=== PATIENT | female | born 1955 | race Caucasian/White ===

== ENCOUNTER 2020-05-04 09:39 | Outpatient (REF) | payer OTHER, SELFPAY ==
[2020-05-04 11:10] LABS: Cholesterol 153 mg/dL; HDL Cholesterol 31 mg/dL; LDL Cholesterol Calculated 92 mg/dl; Triglycerides 154 mg/dL
[2020-05-05 22:21] LABS: LDL Cholesterol Direct 95 mg/dL (<100)
== END 2020-05-04 09:40 | disposition home or self-care (01) ==
LOC: HO.LAB 09:39
PROVIDERS: Visit Provider Internal Medicine Endocrinology, Diabetes & Metabolism
DX: E78.5 Hyperlipidemia, unspecified (principal)
CPT/HCPCS: 36415; 80061; 83721

== ENCOUNTER 2020-05-24 08:11 | Outpatient (REF) | payer OTHER, SELFPAY ==
--- NOTE | 2020-05-24 09:39 | P.BOP_ITS ---
Brief Operative Note Date of procedure: 05/24/20 Pre-op diagnosis: Nontoxic multinodular goiter Post-op diagnosis: same Procedure: This procedure was explained to the patient. Alternatives, risks and benefits were discussed. Written consent was obtained. After sterile preparation of the skin, fine-needle aspiration biopsy of right mid pole thyroid nodule size 2.4 x 1.2 x 2.4 cm was performed under direct ultrasound guidance to confirm accurate needle placement. First pass was performed with a 25 gauge needle , was an aspiration of the cystic part of the nodule 0.5 ml was aspirated of a dark red fluid. Three passes were performed with 25 gauge needles. Samples were submitted to cytology, initial cytology reading was adequate. No passes were dedicated for Afirma genomic sequencing society reporter test. PAtient had a prior FNA of this nodule that was AUS on 2019. Afirma was negative. Patient tolerated procedure well. Aftercare instructions were provided. Impression: uncomplicated fine-needle aspiration biopsy of right mid pole thyroid nodule thyroid nodule under direct ultrasound guidance. Surgeon: Tank Koch MD Anesthesia: local ( lidocaine 1% 2 mL) Estimated blood loss (mL): 0 Condition: stable Disposition: same day
[2020-05-24] MEDS: Lidocaine HCl 1 % 20 ML VIAL 5 ML SUBCUT (12:05)
== END 2020-05-24 08:12 | disposition home or self-care (01) ==
LOC: HO.US 08:11
PROVIDERS: PCP Internal Medicine; Visit Provider Internal Medicine Endocrinology, Diabetes & Metabolism
DX: E04.2 Nontoxic multinodular goiter (principal)
CPT/HCPCS: 10005; 88172; 88173; 88177; 88305

== ENCOUNTER → 2020-06-04 11:59 | Outpatient (BNVA) | payer OTHER, SELFPAY | PROVIDERS: PCP Internal Medicine; Referring Provider Internal Medicine; Visit Provider Internal Medicine Endocrinology, Diabetes & Metabolism | DX: E11.649 Type 2 diabetes mellitus with hypoglycemia without coma (principal); E11.40 Type 2 diabetes mellitus with diabetic neuropathy, unspecified; E11.22 Type 2 diabetes mellitus with diabetic chronic kidney disease; I12.9 Hypertensive chronic kidney disease with stage 1 through stage 4 chronic kidney disease, or unspecified chronic kidney disease; N18.30 Chronic kidney disease, stage 3 unspecified; Z79.4 Long term (current) use of insulin; E04.2 Nontoxic multinodular goiter; E78.5 Hyperlipidemia, unspecified; E55.9 Vitamin D deficiency, unspecified | CPT/HCPCS: 99212 ==

== ENCOUNTER 2020-06-05 08:26 | Outpatient (REF) | payer OTHER, SELFPAY ==
[2020-06-05 09:35] LABS: Basophils Absolute Auto 0.1 X10*3/uL (0.0-0.2); Basophils Percent Auto 0.7 % (0-2); Eosinophils Absolute Auto 0.1 X10*3/uL (0.0-0.4); Eosinophils Percent Auto 0.9 % (0-4); Hematocrit 33.8 % (37-47); Hemoglobin 10.2 g/dl (12.0-16.0); Imm Gran Pct Auto 0.8 % (0.0-0.4); Lymphocytes Absolute Auto 2.5 X10*3/uL (1.2-4.9); Lymphocytes Percent Auto 19.9 % (20-40); MANUAL DIFF FLAG NO; Mean Corpuscular HGB Conc 30.2 g/dl (31.0-35.0); Mean Corpuscular Hemoglobin 25.6 pg (27.0-33.0); Mean Corpuscular Volume 84.9 fL (80-98); Mean Platelet Volume 10.1 fL (9.4-12.3); Monocytes Absolute Auto 1.1 X10*3/uL (0.1-1.2); Monocytes Percent Auto 8.8 % (2-11); Neutrophils Absolute Auto 8.7 X10*3/uL (2.0-8.3); Neutrophils Percent Auto 68.9 % (45-73); Platelet Count 319 X10*3/uL (160-400); Red Blood Count 3.98 X10*6/uL (4.20-5.50); Red Cell Distribution Width 14.5 % (11.0-16.0); White Blood Count 12.7 X10*3/uL (4.8-10.8)
[2020-06-05 10:00] LABS: Anion Gap 10 (12-20); Blood Urea Nitrogen 18 mg/dL (9-16); Carbon Dioxide 30 mmol/L (22-29); Chloride 105 mmol/L (96-108); Estimated Glomerular Filt Rate 59; Potassium 3.9 mmol/l (3.3-5.1); Sodium 141 mmol/L (135-145)
== END 2020-06-05 08:27 | disposition home or self-care (01) ==
LOC: HO.LAB 08:26
PROVIDERS: PCP Internal Medicine; Visit Provider Internal Medicine Hypertension Specialist
DX: E11.22 Type 2 diabetes mellitus with diabetic chronic kidney disease (principal); N18.30 Chronic kidney disease, stage 3 unspecified; D63.1 Anemia in chronic kidney disease; R80.9 Proteinuria, unspecified; E11.21 Type 2 diabetes mellitus with diabetic nephropathy; Q63.2 Ectopic kidney
CPT/HCPCS: 36415; 80051; 82565; 84520; 85025

== ENCOUNTER 2020-06-06 12:58 | Outpatient (REF) | payer OTHER, SELFPAY | END 2020-06-06 12:59 | disposition home or self-care (01) | LOC: HO.HMGCLDS 12:58 | PROVIDERS: PCP Internal Medicine; Visit Provider Internal Medicine | DX: Z20.828 Contact with and (suspected) exposure to other viral communicable diseases (principal) | CPT/HCPCS: C9803; U0003 ==

== ENCOUNTER 2020-09-24 09:54 | Outpatient (REF) | payer OTHER, SELFPAY ==
[2020-09-24 11:33] LABS: Hematocrit 33.9 % (37-47); Hemoglobin 10.3 g/dl (12.0-16.0); Mean Corpuscular HGB Conc 30.4 g/dl (31.0-35.0); Mean Corpuscular Hemoglobin 25.2 pg (27.0-33.0); Mean Corpuscular Volume 82.9 fL (80-98); Mean Platelet Volume 9.6 fL (9.4-12.3); Platelet Count 334 X10*3/uL (160-400); Red Blood Count 4.09 X10*6/uL (4.20-5.50); Red Cell Distribution Width 13.2 % (11.0-16.0); White Blood Count 12.5 X10*3/uL (4.8-10.8)
[2020-09-24 12:25] LABS: Microalbum/Creatinine Ratio Ur 7.6 ug/mg cr
[2020-09-24 12:34] LABS: Alanine Aminotransferase 18 U/L (0-31); Albumin Level 3.8 g/dL (3.5-5.0); Alkaline Phosphatase 89 U/L (39-117); Anion Gap 13 (12-20); Aspartate Amino Transferase 17 U/L (5-31); Bilirubin Total 0.4 mg/dL (0.0-1.0); Blood Urea Nitrogen 13 mg/dL (9-16); Calcium 8.9 mg/dL (8.4-10.2); Carbon Dioxide 34 mmol/L (22-29); Chloride 102 mmol/L (96-108); Cholesterol 177 mg/dL; Estimated Glomerular Filt Rate > 60; Glucose Fasting 78 mg/dL (60-99); HDL Cholesterol 40 mg/dL; LDL Cholesterol Calculated 118 mg/dl; Potassium 3.5 mmol/L (3.3-5.1); Sodium 145 mmol/L (135-145); Total Protein 6.5 g/dL (6.5-8.0); Triglycerides 96 mg/dL
[2020-09-24 12:55] LABS: Thyroid Stimulating Hormone 0.37 uIU/mL (0.32-4.0)
[2020-09-25 08:21] LABS: LDL Cholesterol Direct 112 mg/dL (<100)
[2020-09-27 16:00] LABS: Vitamin B12 272 pg/mL (200-900)
[2020-09-28 05:17] LABS: Fructosamine 228 umol/L (205-285)
== END 2020-09-24 09:55 | disposition home or self-care (01) ==
LOC: HO.LAB 09:54
PROVIDERS: PCP Internal Medicine; Visit Provider Internal Medicine Endocrinology, Diabetes & Metabolism
DX: E11.649 Type 2 diabetes mellitus with hypoglycemia without coma (principal); E11.22 Type 2 diabetes mellitus with diabetic chronic kidney disease; I12.9 Hypertensive chronic kidney disease with stage 1 through stage 4 chronic kidney disease, or unspecified chronic kidney disease; N18.30 Chronic kidney disease, stage 3 unspecified; E11.42 Type 2 diabetes mellitus with diabetic polyneuropathy; Z79.4 Long term (current) use of insulin; E78.5 Hyperlipidemia, unspecified; I10 Essential (primary) hypertension; E55.9 Vitamin D deficiency, unspecified; E04.2 Nontoxic multinodular goiter
CPT/HCPCS: 36415; 80053; 80061; 82043; 82607; 82947; 82985; 83721; 84439; 84443; 85027; 99212

== ENCOUNTER 2021-02-07 14:06 | Outpatient (REF) | payer OTHER, SELFPAY ==
[2021-02-07 15:46] LABS: Alanine Aminotransferase 15 U/L (0-31); Albumin Level 3.7 g/dL (3.5-5.0); Alkaline Phosphatase 101 U/L (39-117); Anion Gap 11 (12-20); Aspartate Amino Transferase 16 U/L (5-31); Bilirubin Total 0.3 mg/dL (0.0-1.0); Blood Urea Nitrogen 15 mg/dL (9-16); Calcium 8.9 mg/dL (8.4-10.2); Carbon Dioxide 31 mmol/L (22-29); Chloride 101 mmol/L (96-108); Cholesterol 140 mg/dL; Estimated Glomerular Filt Rate 49; Glucose Random 113 mg/dL (60-115); HDL Cholesterol 34 mg/dL; LDL Cholesterol Calculated 83 mg/dl; Potassium 3.4 mmol/L (3.3-5.1); Sodium 140 mmol/L (135-145); Total Protein 6.9 g/dL (6.5-8.0); Triglycerides 117 mg/dL
[2021-02-08 07:56] LABS: LDL Cholesterol Direct 83 mg/dL (<100)
== END 2021-02-07 14:07 | disposition home or self-care (01) ==
LOC: HO.LAB 14:06
PROVIDERS: PCP Internal Medicine; Visit Provider Internal Medicine Endocrinology, Diabetes & Metabolism
DX: E11.649 Type 2 diabetes mellitus with hypoglycemia without coma (principal); E11.22 Type 2 diabetes mellitus with diabetic chronic kidney disease; E11.42 Type 2 diabetes mellitus with diabetic polyneuropathy; E04.2 Nontoxic multinodular goiter; I12.9 Hypertensive chronic kidney disease with stage 1 through stage 4 chronic kidney disease, or unspecified chronic kidney disease; N18.30 Chronic kidney disease, stage 3 unspecified; E78.5 Hyperlipidemia, unspecified; E55.9 Vitamin D deficiency, unspecified; Z79.4 Long term (current) use of insulin
CPT/HCPCS: 36415; 80053; 80061; 82947; 83721; 99212

== ENCOUNTER 2021-05-20 09:23 | Outpatient (REF) | payer MEDICARE, SELFPAY ==
--- NOTE | ~2021-05-20 | MM_ITS ---
EXAMINATION: MM SCREENING DIGITAL BREAST TOMOSYNTHESIS, BILATERAL CLINICAL INFORMATION: Screening. Asymptomatic. The lifetime risk of breast cancer based on the Tyrer-Cuzick Model is 3%. COMPARISON: Mammography: 10/15/2018, 10/09/2017, 10/02/2017 TECHNIQUE: Digital breast tomosynthesis is performed in both the craniocaudal and mediolateral oblique views along with computer-aided detection (CAD). Synthesized 2D images are generated from the tomosynthesis. Additional left MLO view is provided. FINDINGS: There are scattered areas of fibroglandular density (ACR BI-RADS breast composition Category b). There are no significant masses, abnormal calcifications, or other abnormalities. Parenchymal pattern is similar to prior exams. No developing density. Pacemaker generator overlies and partly obscures left axilla. Skin contours are smooth. No significant changes. MM/MM tomosynthesis screening BI IMPRESSION: No mammographic evidence of malignancy. ASSESSMENT: BI-RADS 2: Benign RECOMMENDATION: Routine annual mammography screening. This patient's information was entered into a reminder system with a target due date for their next mammogram.
== END 2021-05-20 09:24 | disposition home or self-care (01) ==
LOC: HO.MAMMO 09:23
PROVIDERS: PCP Internal Medicine; Visit Provider Internal Medicine
DX: Z12.31 Encounter for screening mammogram for malignant neoplasm of breast (principal)
CPT/HCPCS: 77063; 77067

== ENCOUNTER 2021-06-20 14:12 | Outpatient (REF) | payer MEDICARE, SELFPAY ==
--- NOTE | ~2021-06-20 | US_ITS ---
EXAMINATION: US THYROID CLINICAL INFORMATION: Nontoxic multinodular goiter. COMPARISON: Ultrasound soft tissue head/neck thyroid most recent dated 01/02/2020 and 11/09/2018. TECHNIQUE: Linear transducer grayscale and color Doppler examination with attention to the region of the thyroid. FINDINGS: SIZE: Measurements of the thyroid lobes and nodules are given in sagittal, anteroposterior and transverse dimensions respectively. Right Thyroid Lobe: 5.5 x 1.8 x 1.9 cm, volume 9.8 mL. Previously 5.3 x 2.3 x 1.7 cm, volume 10.8 mL. Parenchyma: The gland echotexture is heterogeneous. Thyroid vascularity is normal. Left Thyroid Lobe: 4.9 x 1.1 x 1.8 cm, volume 5.1 mL. Previously 4.1 x 1.5 x 1.7 cm, volume 5.5 mL. Parenchyma: The gland echotexture is homogeneous. Thyroid vascularity is normal. Isthmus: 0.3 cm in maximum AP dimension. Previously 0.5 cm. There are multiple nodules. Largest nodules are measured. Estimated total number of nodules greater than or equal to 1 cm: 3. Chick Sexer nodules are described as follows: 1. Location: Right mid. Size: 1.9 x 0.96 x 1.6 cm, volume 1.6 mL. Previously: 1.4 x 0.9 x 1.3 cm, volume 1.2 mL. Nodule characteristics: Composition: Mixed cystic and solid (1). Echogenicity: Anechoic (0). Shape: Not taller than wide (0). Margins: Lobulated (2). Echogenic Foci: None (0). ACR TI-RADS total points: 3 ACR TI-RADS category: 3 Significant change in size (>/= 20% in 2 dimensions and minimal increase of 2 mm or 50% or greater increase in volume): Change in features: Change in ACR TI-RADS risk category: 2. Location: Right mid. Size: 1.1 x 0.8 x 1.3 cm, volume 0.6 mL. Previously: 2.4 x 1.2 x 2.4 cm, volume 3.61 mL. Nodule characteristics: Composition: Solid (2). Echogenicity: Hyperechoic (1). Shape: Not taller than wide (0). Margins: Smooth (0). Echogenic Foci: None (0). ACR TI-RADS total points: 3 ACR TI-RADS category: 3 Significant change in size (>/= 20% in 2 dimensions and minimal increase of 2 mm or 50% or greater increase in volume): Change in features: Change in ACR TI-RADS risk category: 3. Location: Right superior. Size: 1.3 x 1.3 x 1.2 cm, volume 1.06 mL. Previously: 1.7 x 1.4 x 1.4 cm, volume 1.7 mL. Nodule characteristics: Composition: Solid (2). Echogenicity: Isoechoic (1). Shape: Not taller than wide (0). Margins: Ill-defined (0). Echogenic Foci: None (0). ACR TI-RADS total points: 3 ACR TI-RADS category: 3 Significant change in size (>/= 20% in 2 dimensions and minimal increase of 2 mm or 50% or greater increase in volume): Change in features: Change in ACR TI-RADS risk category: 4. Location: Left mid. Size: 0.4 x 0.3 x 0.4 cm, volume 0.03 mL. Previously: 0.7 x 0.4 x 0.5 cm, volume 0.07 mL. Nodule characteristics: Composition: Cystic(0). ACR TI-RADS total points: 0 ACR TI-RADS category: 1 Significant change in size (>/= 20% in 2 dimensions and minimal increase of 2 mm or 50% or greater increase in volume): Change in features: Change in ACR TI-RADS risk category: 5. Location: Left inferior. Size: 0.4 x 0.3 x 0.4 cm, volume 0.04 mL. Previously: 0.4 x 0.2 x 0.4 cm, volume 0.01 mL. Nodule characteristics: Composition: Mixed cystic and solid (1). Echogenicity: Isoechoic (1). Shape: Not taller than wide (0). Margins: Ill-defined (0). Echogenic Foci: Punctate echogenic foci (3). ACR TI-RADS total points: 5 ACR TI-RADS category: 4 Significant change in size (>/= 20% in 2 dimensions and minimal increase of 2 mm or 50% or greater increase in volume): Change in features: Change in ACR TI-RADS risk category: NODES: No lymphadenopathy is seen in the tissue surrounding the thyroid gland. There are small left cervical lymph nodes. These are normal in size and demonstrate normal ultrasound morphology and flow. US/US thyroid IMPRESSION: Slightly enlarged heterogeneous-appearing right lobe. Multiple bilateral thyroid nodules, right greater than left. These appear similar to previous exam. ACR TI-RADS RECOMMENDATION REFERENCE: Ultrasound-guided fine-needle aspiration, followup ultrasound, no further follow up. * TR1 (0 point) and TR 2 (2 points): No FNA or follow up * TR3 (3 points): FNA if more than or equal to 2.5 cm in maximum dimension, followup ultrasound in 1, 3 and 5 years if 1.5 to 2.4 cm in maximum dimension. * TR4 (4-6 points): FNA if more than or equal to 1.5 cm in maximum dimension, followup ultrasound in 1, 2, 3 and 5 years if 1 to 1.4 cm in maximum dimension. * TR5 (more than or equal to 7 points): FNA if more than or equal to 1 cm in maximum dimension, followup ultrasound every year for 5 years if 0.5 to 0.9 cm in maximum dimension. * TR3, TR4 or TR5 nodules that are below the size threshold for follow up receive no follow up.
== END 2021-06-20 14:13 | disposition home or self-care (01) ==
LOC: HO.US 14:12
PROVIDERS: PCP Internal Medicine; Visit Provider Internal Medicine
DX: E04.2 Nontoxic multinodular goiter (principal)
CPT/HCPCS: 76536

== ENCOUNTER → 2021-07-10 08:03 | Outpatient (BNVA) | payer MEDICARE, SELFPAY | PROVIDERS: PCP Internal Medicine; Visit Provider Internal Medicine | DX: E04.2 Nontoxic multinodular goiter (principal) | CPT/HCPCS: Q3014 ==

== ENCOUNTER 2021-07-12 10:03 | Outpatient (REF) | payer MEDICARE, SELFPAY ==
[2021-07-12 12:14] LABS: Free T4 (Free Thyroxine) 0.99 ng/dL (0.71-1.85); Thyroid Stimulating Hormone 0.55 uIU/mL (0.32-4.0)
== END 2021-07-12 10:04 | disposition home or self-care (01) ==
LOC: HO.LAB 10:03
PROVIDERS: PCP Student in an Organized Health Care Education/Training Program; Visit Provider Internal Medicine
DX: E04.2 Nontoxic multinodular goiter (principal)
CPT/HCPCS: 36415; 84439; 84443

== ENCOUNTER 2021-07-30 14:29 | Emergency (ER) | payer MEDICARE, SELFPAY ==
--- NOTE | ~2021-07-30 | XR_ITS ---
EXAMINATION: XR CHEST CLINICAL INFORMATION: Cough COMPARISON: 09/05/2010 TECHNIQUE: Frontal view of the chest was obtained. FINDINGS: Since the prior study a left chest wall pacer/defibrillator has been placed exam is otherwise unchanged. No infiltrates, effusions or lung masses are seen.. XR/XR chest 1V IMPRESSION: No acute intrathoracic disease.
[2021-07-30 15:25] VITALS: BP 124/64; PULSE 87; RESP 16; TEMP 36.9; O2SAT 98; BMI 25.9
[2021-07-30 16:16] LABS: COVID-19 Test Negative (Negative)
--- NOTE | 2021-07-30 18:50 | ED.URI ---
HPI - URI/Sore Throat General Chief Complaint: Upper Respiratory Symptoms Stated Complaint: Diff Breathing Sore Throat Time Seen by Provider: 07/30/21 18:50 Source: patient Mode of arrival: ambulatory Limitations: language barrier (Macedonian speaking only, fine patcher used) History of Present Illness HPI Narrative: 66-year-old female who presents emergency department for evaluation of cough, shortness of breath, body aches, chest pain. Patient states she has been sick for approximately 6 days. She states she has a persistent nonproductive cough. She states that whenever she coughs she gets pain in her anterior chest which she describes as a sharp pain which is brief. She states she feels short of breath at rest and has some mild dyspnea on exertion. She states that her body aches. She denied fever or chills. The patient received the 2 shot COVID-19 Moderna vaccination. Patient does have a history of cardiomyopathy and does have an AICD. Related Data Home Medications Medication Instructions Recorded Confirmed alcohol swabs pad TOPICAL 06/04/20 07/10/21 allopurinol 100 mg tablet 400 mg PO DAILY 06/04/20 07/10/21 aspirin 81 mg tablet,delayed 81 mg PO DAILY 06/04/20 07/10/21 release carvedilol 25 mg tablet 25 mg PO BID 06/04/20 07/10/21 cholecalciferol (vitamin D3) 50 50 mcg PO DAILY 06/04/20 07/10/21 mcg (2,000 unit) capsule digoxin 125 mcg (0.125 mg) tablet 62.5 mcg PO 3XW 06/04/20 07/10/21 gabapentin 600 mg tablet 600 mg PO TID 06/04/20 07/10/21 loratadine 10 mg tablet 10 mg PO DAILY 06/04/20 07/10/21 methocarbamol 750 mg tablet 750 mg PO BID 06/04/20 07/10/21 omeprazole 10 mg capsule,delayed 10 mg PO DAILY 06/04/20 07/10/21 release sacubitril 49 mg-valsartan 51 mg 1 tab PO BID 06/04/20 07/10/21 tablet zolpidem 5 mg tablet 5 mg PO BEDTIME PRN 06/04/20 07/10/21 ferrous sulfate 325 mg (65 mg 325 mg PO BID 09/24/20 07/10/21 iron) tablet furosemide 40 mg tablet 40 mg PO DAILY tab 09/24/20 07/10/21 famotidine 40 mg tablet 40 mg PO DAILY 07/10/21 07/10/21 Previous Rx's Medication Instructions Recorded lancing device (Adjustable Lancing #1 ea 02/01/21 Device) blood sugar diagnostic (FreeStyle 1 strip MISCELLANEOUS BID 90 Days 02/07/21 Lite Strips) #200 strip empagliflozin 25 mg tablet 25 mg PO DAILY 30 Days #30 tab 02/07/21 (Jardiance) linagliptin 5 mg tablet (Tradjenta) 5 mg PO DAILY #30 tab 02/07/21 insulin glargine 100 unit/mL (3 10 unit (0.1 mL) SUBCUT DAILY 30 02/13/21 mL) subcutaneous pen ( #3 ml Solostar U-100 Insulin) pen needle, diabetic 32 gauge x #50 ea 02/13/21 (BD Radha 2nd Gen Pen Needle) atorvastatin 40 mg tablet 40 mg PO DAILY #90 tab 03/04/21 lancets 28 gauge #200 ea 05/02/21 albuterol sulfate 90 mcg/actuation 2 puff INHALATION Q4-6H PRN #8.5 g 07/30/21 aerosol inhaler (ProAir HFA) benzonatate 100 mg capsule 200 mg PO TID PRN #20 cap 07/30/21 doxycycline hyclate 100 mg tablet 100 mg PO Q12H 7 Days #14 tab 07/30/21 Allergies Allergy/AdvReac Type Severity Reaction Status Date / Time egg [EGG] Allergy Intermediate RASH Verified 07/10/21 09:04 Fish Containing Products Allergy Intermediate RASH Verified 07/10/21 09:04 oxycodone [OXYCODONE] Allergy Intermediate RASH Verified 07/10/21 09:04 acetaminophen [From PERCOCET] Allergy Unknown RASH/ITCHIN Verified 07/10/21 09:04 G codeine [CODEINE] Allergy Unknown ITCHING Verified 07/10/21 09:04 hydrocodone [From VICODIN] Allergy Unknown UNKNOWN Verified 07/10/21 09:04 lisinopril [LISINOPRIL] Allergy Unknown UNKNOWN Verified 07/10/21 09:04 metoclopramide [From REGLAN] Allergy Unknown UNKNOWN Verified 07/10/21 09:04 naproxen [Naprosyn] Allergy Unknown Unknown Verified 07/10/21 09:04 Codeine Sulfate Allergy Unknown Unknown Uncoded 07/10/21 09:04 Percocet Allergy Unknown Unknown Uncoded 07/10/21 09:04 Vicodin Allergy Unknown Unknown Uncoded 07/10/21 09:04 Review of Systems Review of Systems: Yes all other systems are reviewed and are negative [facility] Past Medical History Medical History CHF (congestive heart failure) CKD (chronic kidney disease) stage 3, GFR 30-59 ml/min Diabetes type 2, uncontrolled Diabetic neuropathy associated with type 2 diabetes mellitus Dyslipidemia Hypertension Hypoglycemia unawareness associated with type 2 diabetes mellitus 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 Non-toxic multinodular goiter Vitamin D deficiency Surgical History AICD (automatic cardioverter/defibrillator) present Hx of appendectomy Hx of hysterectomy Family History Family History Father Alcoholism Diabetes Mother Arthritis Hypertension Social History Social History Alcohol intake: current Alcohol intake frequency: does not drink Patient Tobacco Use Status: Never used Tobacco Advance Directives: No Advance Directives Information Provided: No Physical Exam Vital Signs: Vital Signs: Last Vital Signs Temp 98.4 F 07/30/21 15:25 Pulse 87 07/30/21 15:25 Resp 16 07/30/21 15:25 BP 124/64 07/30/21 15:25 Pulse Ox 98 07/30/21 15:25 BMI result Body Mass Index 25.9 Const: General: cooperative and healthy appearing Orientation/consciousness: oriented to person and oriented to place Limitations: no limitations HENMT: Head: Yes normal to inspection, Yes normocephalic and Yes atraumatic Ears: external ears normal General nose exam: Normal external nose present Face and sinus: Yes normal facial exam Mouth: Normal oral and palatal mucosa present Throat: Yes posterior oropharynx normal Eyes: Periorbital: periorbital findings normal Eyelids: Yes eyelids normal Conjunctivae: conjunctivae normal Sclerae: sclerae normal Corneas: corneas normal Pupils: Equal, round and reactive pupils present Direct Ophthalmoscopy: normal light reflex Neck: Neck: Yes full ROM, Yes no lymphadenopathy, Yes no meningeal signs, Yes trachea midline and Yes supple Chest: Chest palpation & inspection: normal inspection of the chest and normal palpation of entire chest wall Resp: Effort & Inspection: normal respiratory effort and able to speak in complete sentences Auscultation: no crackles, no rhonchi and wheezes (Diffuse) Cardio: Rate: regular rate Rhythm: regular rhythm Heart sounds: S1 normal heart sound present, S2 normal heart sound present and no murmurs GI: Inspection: Yes normal to inspection Palpation (GI): Soft to palpation, nontender, no guarding, not rigid and No hepatosplenomegaly present : General: Yes no CVA tenderness Back/Spine/Pelvis: Back: no CVA tenderness Cervical Spine: normal cervical lordosis Thoracic/Lumbar Spine: thoracic and lumbar spine normal to inspection Skin: Lesions: no lesions Rashes: no rashes Wounds: no wounds Neuro: General: oriented to person, oriented to place and no meningeal signs Cranial nerves: Yes Equal, round and reactive pupils present Cognition (Neuro): normal cognition Motor exam (neuro): 5/5 motor strength present throughout Extrem: General: Yes normal to inspection and Yes full ROM Psych: Appearance: well kempt Mental Status: mental status grossly normal Speech and movement: Normal speech and movement present Affect: normal affect Attitude: cooperative Thought process: Normal thought process present Thought content: Normal thought content present Course Course Course Narrative: 66-year-old female who presents emergency department for evaluation of cough, chest pain, shortness of breath x6 days. Patient is vaccinated for COVID-19. Vital signs were normal with respiratory of 16 and O2 saturation of 98% on room air. exam did reveal wheezing otherwise was unremarkable. Chest x-ray revealed no evidence of pneumonia. COVID-19 test was negative. Patient's presentation is consistent with acute bronchitis, given her concomitant medical conditions I will treat her for bacterial bronchitis. She was started on doxycycline 100 mg twice a day for 7 days, albuterol inhaler 2 puffs 4 times a day for 7 days and Tessalon Perles 200 mg, 1 pill 3 times a day as needed for cough. She was given printed and verbal instructions and discharged home. MDM - URI/Sore Throat Lab Data Labs: Lab Results 07/30/21 Range/Units 15:56 COVID-19 ([facility]) Negative (Negative) COVID-19 Clin Com See Note Discharge Plan Discharge Clinical Impression: Acute bronchospasm Acute bronchitis Qualifiers: Bronchitis organism: other organism Qualified Code(s): J20.8 - Acute bronchitis due to other specified organisms Patient Disposition: Home, Self-Care Instructions: How to Use a Metered-Dose Inhaler (ED), Acute Bronchitis (ED) Additional Instructions: Your chest x-ray was normal. Your COVID-19 test was negative. Your symptoms are consistent with bronchitis (infection of your breathing tubes) and wheezing. Take doxycycline 100 mg pills, 1 pill twice a day for 7 days. This will treat a bacterial infection. Use the albuterol inhaler 2 puffs 4 times a day for 1 week. This will help with your cough and with your wheezing. Take Tessalon Perles 200 mg pills, 1 pill 3 times a day as needed for cough. Follow-up with your doctor in 2 days. Please return to the emergency department if your symptoms get worse or if you develop any symptoms that are concerning to you. Prescriptions: New albuterol sulfate [ProAir HFA] 90 mcg/actuation HFA aerosol inhaler 2 puff inhalation Q4-6H PRN (Reason: shortness of breath or wheezing) Qty: 8.5 RF: 0 doxycycline hyclate 100 mg tablet 100 mg PO Q12H 7 Days Qty: 14 RF: 0 benzonatate 100 mg capsule 200 mg PO TID PRN (Reason: cough) Qty: 20 RF: 0 No Action (DME) lancing device [Adjustable Lancing Device] Misc See Rx Instructions .ROUTE .MEDSUPPLY Qty: 1 RF: 0 Lantus Solostar U-100 Insulin 100 unit/mL (3 mL) insulin pen 10 unit subcut DAILY 30 Days Qty: 3 RF: 3 (DME) pen needle, diabetic [BD Radha 2nd Gen Pen Needle] 32 gauge x 5/32 needle See Rx Instructions .ROUTE .MEDSUPPLY Qty: 50 RF: 4 atorvastatin 40 mg tablet 40 mg PO DAILY Qty: 90 RF: 1 (DME) lancets 28 gauge misc See Rx Instructions gauge topical .MEDSUPPLY Qty: 200 RF: 3 alcohol swabs Pads, Medicated topical RF: 0 methocarbamol 750 mg tablet 750 mg PO BID RF: 0 zolpidem 5 mg tablet 5 mg PO BEDTIME PRNRF: 0 cholecalciferol (vitamin D3) 50 mcg (2,000 unit) capsule 50 mcg PO DAILY RF: 0 omeprazole 10 mg capsule,delayed release(DR/EC) 10 mg PO DAILY RF: 0 digoxin 125 mcg (0.125 mg) tablet 62.5 mcg PO 3XW RF: 0 loratadine 10 mg tablet 10 mg PO DAILY RF: 0 carvedilol 25 mg tablet 25 mg PO BID RF: 0 aspirin 81 mg tablet,delayed release (DR/EC) 81 mg PO DAILY RF: 0 gabapentin 600 mg tablet 600 mg PO TID RF: 0 allopurinol 100 mg tablet 400 mg PO DAILY RF: 0 Entresto 49-51 mg tablet 1 tab PO BID RF: 0 furosemide 40 mg tablet 40 mg PO DAILY RF: 0 ferrous sulfate 325 mg (65 mg iron) tablet 325 mg PO BID RF: 0 Tradjenta 5 mg tablet 5 mg PO DAILY Qty: 30 RF: 4 Jardiance 25 mg tablet 25 mg PO DAILY 30 Days Qty: 30 RF: 5 FreeStyle Lite Strips Strip 1 strip miscellaneous BID 90 Days Qty: 200 RF: 2 famotidine 40 mg tablet 40 mg PO DAILY RF: 0 Print Language: Macedonian
== END 2021-07-30 19:30 | disposition home or self-care (01) ==
PROVIDERS: Emergency Provider Emergency Medicine Emergency Medical Services; PCP Internal Medicine
DX: J20.8 Acute bronchitis due to other specified organisms (principal); I13.0 Hypertensive heart and chronic kidney disease with heart failure and stage 1 through stage 4 chronic kidney disease, or unspecified chronic kidney disease; I50.9 Heart failure, unspecified; N18.30 Chronic kidney disease, stage 3 unspecified; E11.22 Type 2 diabetes mellitus with diabetic chronic kidney disease; I42.9 Cardiomyopathy, unspecified; Z95.810 Presence of automatic (implantable) cardiac defibrillator; Z20.822 Contact with and (suspected) exposure to COVID-19
CPT/HCPCS: 36415; 71045; 87635; 99283

== ENCOUNTER 2021-09-16 15:30 | Outpatient (REF) | payer MEDICARE, SELFPAY ==
[2021-09-16 16:22] LABS: Anion Gap 12 (12-20); Blood Urea Nitrogen 14 mg/dL (9-16); Calcium 9.4 mg/dL (8.4-10.2); Carbon Dioxide 32 mmol/L (22-29); Chloride 101 mmol/L (96-108); Estimated Glomerular Filt Rate 46; Glucose Random 111 mg/dL (60-115); Potassium 3.9 mmol/L (3.3-5.1); Sodium 141 mmol/L (135-145)
== END 2021-09-16 15:31 | disposition home or self-care (01) ==
LOC: HO.LAB 15:30
PROVIDERS: PCP Internal Medicine; Visit Provider Internal Medicine Hypertension Specialist
DX: I12.9 Hypertensive chronic kidney disease with stage 1 through stage 4 chronic kidney disease, or unspecified chronic kidney disease (principal); N18.9 Chronic kidney disease, unspecified
CPT/HCPCS: 36415; 80048

== ENCOUNTER 2022-01-06 08:10 | Outpatient (REF) | payer OTHER, SELFPAY ==
--- NOTE | ~2022-01-06 | US_ITS ---
PROCEDURE: ULTRASOUND-GUIDED FINE-NEEDLE ASPIRATION/THYROID CLINICAL INFORMATION: Right thyroid nodules. COMPARISON: Previous ultrasound report June 2021. Images not available for comparison. Previous ultrasound guided fine-needle aspiration May 2020. TECHNIQUE: Procedure and risks and benefits including bleeding and infection were discussed with the patient and informed consent was obtained. The right neck was prepped and draped in the usual sterile fashion. The skin and soft tissues were anesthetized with 1% lidocaine plain. Initially, the smaller hyperechoic nodule in the mid right lobe was targeted for fine-needle aspiration. Three 25-gauge specimens were obtained. Subsequently, the larger more inferior hypoechoic nodule in the right lobe was targeted for fine-needle aspiration. Four 25-gauge FNA specimens were obtained. FINDINGS: There are 2 nodules targeted for fine-needle aspiration. There is a hyperechoic nodule in the mid right lobe measuring 1.2 x 1.2 cm in transverse dimension and a heterogeneous predominately hypoechoic nodule in the inferior right lobe measuring 1.3 x 1.6 cm in transverse dimension. US/US guided fine needle asp IMPRESSION: Ultrasound-guided fine-needle aspiration of 2 right thyroid nodules.
--- NOTE | ~2022-01-06 | US_ITS ---
PROCEDURE: ULTRASOUND-GUIDED FINE-NEEDLE ASPIRATION/THYROID CLINICAL INFORMATION: Right thyroid nodules. COMPARISON: Previous ultrasound report June 2021. Images not available for comparison. Previous ultrasound guided fine-needle aspiration May 2020. TECHNIQUE: Procedure and risks and benefits including bleeding and infection were discussed with the patient and informed consent was obtained. The right neck was prepped and draped in the usual sterile fashion. The skin and soft tissues were anesthetized with 1% lidocaine plain. Initially, the smaller hyperechoic nodule in the mid right lobe was targeted for fine-needle aspiration. Three 25-gauge specimens were obtained. Subsequently, the larger more inferior hypoechoic nodule in the right lobe was targeted for fine-needle aspiration. Four 25-gauge FNA specimens were obtained. FINDINGS: There are 2 nodules targeted for fine-needle aspiration. There is a hyperechoic nodule in the mid right lobe measuring 1.2 x 1.2 cm in transverse dimension and a heterogeneous predominately hypoechoic nodule in the inferior right lobe measuring 1.3 x 1.6 cm in transverse dimension. US/US guided fine needle asp add IMPRESSION: Ultrasound-guided fine-needle aspiration of 2 right thyroid nodules.
[2022-01-06] MEDS: Lidocaine HCl 1 % MPF 5 ML VIAL SUBCUT (10:27)
== END 2022-01-06 08:11 | disposition home or self-care (01) ==
LOC: HO.US 08:10
PROVIDERS: Visit Provider Internal Medicine
DX: E04.2 Nontoxic multinodular goiter (principal)
CPT/HCPCS: 10005; 10006; 88172; 88173; 88177; 88305

== ENCOUNTER → 2022-01-20 08:54 | Outpatient (BNVA) | payer OTHER, SELFPAY | PROVIDERS: PCP Internal Medicine; Visit Provider Internal Medicine | DX: E04.2 Nontoxic multinodular goiter (principal) | CPT/HCPCS: Q3014 ==

== ENCOUNTER 2022-02-05 13:45 | Emergency (ER) | payer OTHER, SELFPAY ==
--- NOTE | ~2022-02-05 | XR_ITS ---
EXAMINATION: 1. RADIOGRAPHS RIGHT ANKLE 2. RADIOGRAPHS RIGHT FOOT CLINICAL INFORMATION: Atraumatic pain and swelling. COMPARISON: Right foot x-rays 05/17/2018 TECHNIQUE: 3 views of the right ankle and 3 views of the right foot were obtained. FINDINGS: Visualized portions of the distal radius and ulna demonstrate no fracture. Ankle mortise is maintained. No focal soft tissue swelling of the ankle. No gross ankle joint effusion. Vascular calcifications of the calf noted. Bones of the midfoot are well aligned. No tarsal, metatarsal or phalangeal fracture. No significant degenerative changes of the right foot. Tiny posterior calcaneal enthesophytes. No focal soft tissue swelling. No radiopaque foreign body. XR/XR foot RT min 3V IMPRESSION: Unremarkable radiographs of the right ankle and foot.
--- NOTE | ~2022-02-05 | XR_ITS ---
EXAMINATION: 1. RADIOGRAPHS RIGHT ANKLE 2. RADIOGRAPHS RIGHT FOOT CLINICAL INFORMATION: Atraumatic pain and swelling. COMPARISON: Right foot x-rays 05/17/2018 TECHNIQUE: 3 views of the right ankle and 3 views of the right foot were obtained. FINDINGS: Visualized portions of the distal radius and ulna demonstrate no fracture. Ankle mortise is maintained. No focal soft tissue swelling of the ankle. No gross ankle joint effusion. Vascular calcifications of the calf noted. Bones of the midfoot are well aligned. No tarsal, metatarsal or phalangeal fracture. No significant degenerative changes of the right foot. Tiny posterior calcaneal enthesophytes. No focal soft tissue swelling. No radiopaque foreign body. XR/XR ankle RT 2V IMPRESSION: Unremarkable radiographs of the right ankle and foot.
[2022-02-05 14:14] VITALS: BP 117/62; PULSE 96; RESP 18; TEMP 36.3; O2SAT 96; BMI 24.5
--- NOTE | 2022-02-05 15:59 | ED.GENADULT ---
HPI - General Adult General Chief complaint: General Medical Stated complaint: L foot pain Time Seen by Provider: 02/05/22 15:54 Source: patient Mode of arrival: ambulatory History of Present Illness HPI narrative: 66-year-old female with a past medical history of CHF, CKD, diabetes, hyperlipidemia, HTN, nontoxic multinodular goiter, vitamin-D deficiency, gout, presenting to the ED complaining of atraumatic right foot/ankle pain and swelling x1 week. Admits symptoms feel similar to prior gout flares. Has been taking Tylenol without relief. Denies fever, chills, numbness/tingling Onset (ago): week(s) Location: right and lower extremity Severity: moderate Related Data Home Medications Medication Instructions Recorded Confirmed alcohol swabs pad topical 06/04/20 01/20/22 allopurinol 100 mg tablet 400 mg PO DAILY 06/04/20 01/20/22 aspirin 81 mg tablet,delayed 81 mg PO DAILY 06/04/20 01/20/22 release carvedilol 25 mg tablet 25 mg PO BID 06/04/20 01/20/22 cholecalciferol (vitamin D3) 50 50 mcg PO DAILY 06/04/20 01/20/22 mcg (2,000 unit) capsule digoxin 125 mcg (0.125 mg) tablet 62.5 mcg PO 3XW 06/04/20 01/20/22 gabapentin 600 mg tablet 600 mg PO TID 06/04/20 01/20/22 loratadine 10 mg tablet 10 mg PO DAILY 06/04/20 01/20/22 methocarbamol 750 mg tablet 750 mg PO BID 06/04/20 01/20/22 omeprazole 10 mg capsule,delayed 10 mg PO DAILY 06/04/20 01/20/22 release sacubitril 49 mg-valsartan 51 mg 1 tab PO BID 06/04/20 01/20/22 tablet zolpidem 5 mg tablet 5 mg PO BEDTIME PRN 06/04/20 01/20/22 ferrous sulfate 325 mg (65 mg 325 mg PO BID 09/24/20 01/20/22 iron) tablet furosemide 40 mg tablet 40 mg PO DAILY 09/24/20 01/20/22 famotidine 40 mg tablet 40 mg PO DAILY 07/10/21 01/20/22 Previous Rx's Medication Instructions Recorded lancing device (Adjustable Lancing #1 ea 02/01/21 Device) atorvastatin 40 mg tablet 40 mg PO DAILY #90 tabs 03/04/21 lancets 28 gauge #200 ea 05/02/21 albuterol sulfate 90 mcg/actuation 2 puff inhalation Q4-6H PRN 07/30/21 aerosol inhaler (ProAir HFA) shortness of breath or wheezing #8.5 grams benzonatate 100 mg capsule 200 mg PO TID PRN cough #20 caps 07/30/21 doxycycline hyclate 100 mg tablet 100 mg PO Q12H 7 days #14 tabs 07/30/21 empagliflozin 25 mg tablet 25 mg PO DAILY 30 days #30 tabs 01/08/22 (Jardiance) insulin glargine 100 unit/mL (3 10 unit (0.1 mL) subcut DAILY 30 01/08/22 mL) subcutaneous pen (Lantus days #3 mL Solostar U-100 Insulin) linagliptin 5 mg tablet (Tradjenta) 5 mg PO DAILY #30 tabs 01/08/22 pen needle, diabetic 32 gauge x #50 ea 01/08/22/32 (BD Radha 2nd Gen Pen Needle) blood sugar diagnostic (FreeStyle 1 strip miscellaneous BID 90 days 01/10/22 Lite Strips) #200 strips prednisone 10 mg tablet 10 mg PO DAILY #20 tabs 02/05/22 Allergies Allergy/AdvReac Type Severity Reaction Status Date / Time egg [EGG] Allergy Intermediate RASH Verified 02/05/22 14:14 Fish Containing Products Allergy Intermediate RASH Verified 02/05/22 14:14 oxycodone [OXYCODONE] Allergy Intermediate RASH Verified 02/05/22 14:14 acetaminophen [From PERCOCET] Allergy Unknown RASH/ITCHIN Verified 02/05/22 14:14 G codeine [CODEINE] Allergy Unknown ITCHING Verified 02/05/22 14:14 hydrocodone [From VICODIN] Allergy Unknown UNKNOWN Verified 02/05/22 14:14 lisinopril [LISINOPRIL] Allergy Unknown UNKNOWN Verified 02/05/22 14:14 metoclopramide [From REGLAN] Allergy Unknown UNKNOWN Verified 02/05/22 14:14 naproxen [Naprosyn] Allergy Unknown Unknown Verified 02/05/22 14:14 Codeine Sulfate Allergy Unknown Unknown Uncoded 01/20/22 10:29 Percocet Allergy Unknown Unknown Uncoded 01/20/22 10:29 Vicodin Allergy Unknown Unknown Uncoded 01/20/22 10:29 Review of Systems Review of Systems: Constitutional: No Fever, No Chills ENT/Mouth: No Ear Pain, No Nasal Congestion, No sore throat, No Rhinorrhea, No Swallowing Difficulty Cardiovascular: No Chest Pain, No SOB Respiratory: No Cough, No Sputum, No Wheezing Gastrointestinal: No Nausea, No Vomiting, No Diarrhea, No Constipation, No Abdominal pain Genitourinary: No Dysuria, No Urinary Frequency, No Hematuria, No Flank Pain Musculoskeletal: + joint pain, No Myalgias, + Joint Swelling Skin: No Skin Lesions, No rash Neuro: No Weakness, No Numbness, No Paresthesias Yes all other systems are reviewed and are negative Neurologic: Denies Sensory deficit (Neuro) [facility] Past Medical History Attestation statement: The following information was validated with the patient. Medical History CHF (congestive heart failure) CKD (chronic kidney disease) stage 3, GFR 30-59 ml/min Diabetes type 2, uncontrolled Diabetic neuropathy associated with type 2 diabetes mellitus Dyslipidemia Hypertension Hypoglycemia unawareness associated with type 2 diabetes mellitus [employer] (current) use of insulin Non-toxic multinodular goiter Vitamin D deficiency Surgical History AICD (automatic cardioverter/defibrillator) present Hx of appendectomy Hx of biopsy Hx of hysterectomy Family History Family History Father Alcoholism Diabetes Mother Arthritis Hypertension Social History Social History Alcohol intake: current Alcohol intake frequency: does not drink Patient Tobacco Use Status: Never used Tobacco Advance Directives: Yes Advance Directives Information Provided: Yes Advance Directives on File: No Physical Exam ED Vital Signs: Vital Signs - 24 hr 02/05/22 14:14 Temperature 97.4 F Pulse Rate 96 Respiratory Rate 18 Blood Pressure 117/62 Pulse Oximetry 96 Oxygen Delivery Method Room Air BMI result Body Mass Index 24.5 Const General: cooperative, healthy appearing and no acute distress Orientation/consciousness: patient oriented x3 Limitations: no limitations HENMT Head: Yes normal to inspection and Yes atraumatic Ears: hearing grossly normal bilaterally General nose exam: Normal external nose present Face and sinus: Yes normal facial exam Eyes General: appearance normal, both eyes and all related structures EOM: EOMs intact bilaterally Neck Neck: Yes normal visual inspection and Yes no meningeal signs Resp Effort & Inspection: normal respiratory effort and no respiratory distress Cardio Rate: regular rate Heart sounds: S1 normal heart sound present and S2 normal heart sound present Peripheral pulses: dorsalis pedis present Skin Rashes: no rashes Wounds: no wounds Neuro Other: slow limping gait General: patient oriented x3, tone normal, no meningeal signs and no focal motor deficits Sensory Exam: No Sensory deficit (Neuro) Extrem Other: Right foot/ankle with mild swelling and diffuse ttp even to light touch. No erythema or warmth, no crepitus. NV intact. Limited ROM 2/2 pain Course Course Course Narrative: XR foot RT min 3V/XR ankle RT 2V IMPRESSION: Unremarkable radiographs of the right ankle and foot.? 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 On exam VSS, NAD, well appearing, PE as above. Concern for gout flare vs ?occult fx. Low concern for septic joint/arthritis Plan: XR Medical Records Medical records reviewed: Yes I reviewed the patient's medical records. Lab Data Lab results reviewed: Yes I reviewed the patient's lab results. Discharge Plan Discharge Clinical Impression: Gout flare Patient Disposition: Home, Self-Care Instructions: Low Purine Diet (ED), Gout (ED) Additional Instructions: Your x-rays are unremarkable. Prednisone is a steroid which will help with swelling and pain of her gout flare. Also Take Tylenol for pain Elevate Follow-up with her doctor. If symptoms persist or worsen return to the emergency department Carmen radiograf?as no tienen nada especial. La prednisona es un esteroide que ayudar? con la hinchaz?n y el dolor de castanon brote de gota. Tambi?n tome Tylenol para el dolor Elevar Seguimiento con castanon m?dico. Si los s?ntomas persisten o empeoran, regrese al servicio de urgencias. Prescriptions: New prednisone 10 mg tablet 10 mg PO DAILY Qty: 20 0RF Taper: Prednisone 40 mg daily for 3 Days and 0 Hour 30 mg daily for 3 Days and 0 Hour 20 mg daily for 3 Days and 0 Hour 10 mg daily for 3 Days and 0 Hour Rx Instructions: prednisone 10 mg: take 4 tablets (40 mg) for 2 days; 3 tablets (30 mg) for 2 days; 2 (20mg) tablets for 2 days and then 1 (10mg) tablet for 2 days No Action (DME) lancing device [Adjustable Lancing Device] Misc See Rx Instructions .ROUTE .MEDSUPPLY Qty: 1 0RF Rx Instructions: 3 times a day atorvastatin 40 mg tablet 40 mg PO DAILY Qty: 90 1RF (DME) lancets 28 gauge misc See Rx Instructions topical .MEDSUPPLY Qty: 200 3RF Rx Instructions: To test blood glucose 2 times a day Tradjenta 5 mg tablet 5 mg PO DAILY Qty: 30 6RF Lantus Solostar U-100 Insulin 100 unit/mL (3 mL) insulin pen 10 unit subcut DAILY 30 Days Qty: 3 6RF (DME) pen needle, diabetic [BD Radha 2nd Gen Pen Needle] 32 gauge x 5/32 needle See Rx Instructions .ROUTE .MEDSUPPLY Qty: 50 6RF Rx Instructions: once a day Jardiance 25 mg tablet 25 mg PO DAILY 30 Days Qty: 30 6RF FreeStyle Lite Strips Strip 1 strip miscellaneous BID 90 Days Qty: 200 1RF albuterol sulfate [ProAir HFA] 90 mcg/actuation HFA aerosol inhaler 2 puff inhalation Q4-6H PRN (Reason: shortness of breath or wheezing) Qty: 8.5 0RF doxycycline hyclate 100 mg tablet 100 mg PO Q12H 7 Days Qty: 14 0RF benzonatate 100 mg capsule 200 mg PO TID PRN (Reason: cough) Qty: 20 0RF alcohol swabs Pads, Medicated topical methocarbamol 750 mg tablet 750 mg PO BID zolpidem 5 mg tablet 5 mg PO BEDTIME PRN cholecalciferol (vitamin D3) 50 mcg (2,000 unit) capsule 50 mcg PO DAILY omeprazole 10 mg capsule,delayed release(DR/EC) 10 mg PO DAILY digoxin 125 mcg (0.125 mg) tablet 62.5 mcg PO 3XW loratadine 10 mg tablet 10 mg PO DAILY carvedilol 25 mg tablet 25 mg PO BID aspirin 81 mg tablet,delayed release (DR/EC) 81 mg PO DAILY gabapentin 600 mg tablet 600 mg PO TID allopurinol 100 mg tablet 400 mg PO DAILY Entresto 49-51 mg tablet 1 tab PO BID furosemide 40 mg tablet 40 mg PO DAILY ferrous sulfate 325 mg (65 mg iron) tablet 325 mg PO BID famotidine 40 mg tablet 40 mg PO DAILY Referrals: Obi Ricketts MD [Primary Care Provider] - 5 days Print Language: Mauritanian
== END 2022-02-05 18:59 | disposition home or self-care (01) ==
PROVIDERS: Emergency Provider Internal Medicine; PCP Internal Medicine
DX: M10.071 Idiopathic gout, right ankle and foot (principal); M79.671 Pain in right foot; E11.22 Type 2 diabetes mellitus with diabetic chronic kidney disease; I13.0 Hypertensive heart and chronic kidney disease with heart failure and stage 1 through stage 4 chronic kidney disease, or unspecified chronic kidney disease; N18.30 Chronic kidney disease, stage 3 unspecified; I50.9 Heart failure, unspecified; Z79.4 Long term (current) use of insulin
CPT/HCPCS: 73600; 73630; 99283

== ENCOUNTER 2022-04-09 08:07 | Outpatient (REF) | payer OTHER, SELFPAY ==
--- NOTE | 2022-04-09 08:46 | PM.OP ---
Brief Operative Note Date of Service: 04/09/22 Pre-op diagnosis: Multinodular Thyroid Procedure: US was completed of the Patient's thyroid. She was found to have a Right mid pole lateral 1.9 cm hypoechoic nodule with regular margins and normal vasculature. This was previously biopsied on multiple occasions, last 05/24/2020 while measuring 2.4 cm with benign cytology. She was also found to have a RLP 1.6 cm hypoechoic nodule. This was previously biopsied 12/10/2017 with benign cytology. It has not exhibited significant growth or change since that time. She was found on this exam to have a hypoechoic nodule in the RMP near the isthmus measuring 1.2 cm, with irregular margins. We had a discussion regarding FNA biopsy of this nodule, but she refused stating she does not wish to pursue additional FNA biopsy. She complains of dysphagia and occasional tenderness in this region of the neck and is requesting a R hemithyroidetomy. I will send referral now. Surgeon: Alma Mann, DO Was an Analytical Lab Technician used for this Procedure?: No Estimated blood loss (mL): 0
[2022-04-09 09:27] LABS: Free T4 (Free Thyroxine) 1.03 ng/dL (0.71-1.85); Thyroid Stimulating Hormone 0.36 uIU/mL (0.32-4.0); Vitamin D 25-OH Total 55.2 ng/mL (>30)
== END 2022-04-09 08:08 | disposition home or self-care (01) ==
LOC: HO.US 08:07
PROVIDERS: Visit Provider Internal Medicine
DX: E04.2 Nontoxic multinodular goiter (principal); E55.9 Vitamin D deficiency, unspecified
CPT/HCPCS: 36415; 76536; 82306; 84439; 84443

== ENCOUNTER 2022-08-27 09:53 | Outpatient (REF) | payer OTHER, SELFPAY ==
[2022-08-27 10:48] LABS: Estimated Average Glucose 140 mg/dL; Hemoglobin A1c % 6.5 %
[2022-08-27 11:12] LABS: Microalbum/Creatinine Ratio Ur 7.8 ug/mg cr
[2022-08-27 11:23] LABS: Alanine Aminotransferase 30 U/L (0-31); Albumin Level 3.5 g/dL (3.5-5.0); Alkaline Phosphatase 82 U/L (39-117); Anion Gap 13 (12-20); Aspartate Amino Transferase 18 U/L (5-31); Bilirubin Total 0.4 mg/dL (0.0-1.0); Blood Urea Nitrogen 21 mg/dL (9-16); Calcium 9.2 mg/dL (8.4-10.2); Carbon Dioxide 27 mmol/L (22-29); Chloride 105 mmol/L (96-108); Cholesterol 126 mg/dL; Estimated Glomerular Filt Rate 47; Glucose Random 123 mg/dL (60-115); HDL Cholesterol 35 mg/dL; LDL Cholesterol Calculated 66 mg/dl; Potassium 4.3 mmol/L (3.3-5.1); Sodium 141 mmol/L (135-145); Triglycerides 129 mg/dL
[2022-08-27 11:43] LABS: Free T4 (Free Thyroxine) 1.03 ng/dL (0.71-1.85); Thyroid Stimulating Hormone 0.45 uIU/mL (0.32-4.0)
[2022-08-28 22:53] LABS: LDL Cholesterol Direct 70 mg/dL (<100)
== END 2022-08-27 09:54 | disposition home or self-care (01) ==
LOC: HO.LAB 09:53
PROVIDERS: Visit Provider Internal Medicine
DX: E11.649 Type 2 diabetes mellitus with hypoglycemia without coma (principal); E04.2 Nontoxic multinodular goiter
CPT/HCPCS: 36415; 80053; 80061; 82043; 83036; 83721; 84439; 84443

== ENCOUNTER → 2022-09-03 10:02 | Outpatient (BNVA) | payer OTHER, SELFPAY | PROVIDERS: PCP Hospitalist; Visit Provider Internal Medicine | DX: E04.2 Nontoxic multinodular goiter (principal) | CPT/HCPCS: 99212 ==

== ENCOUNTER 2023-01-03 16:05 | Emergency (ER) | payer OTHER, SELFPAY ==
[2023-01-03 16:21] VITALS: BP 112/55; PULSE 89; RESP 18; TEMP 36.2; O2SAT 97; BMI 25.2
--- NOTE | 2023-01-03 16:22 | ED.GENADULT ---
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 Patient states that over the last 4 days, she has had right great toe pain consistent with a gout flare. Patient denies any dizziness, lightheadedness, abdominal pain, nausea, vomiting, fever, chills, blurry vision, double vision, loss of vision, chest pain, difficulty breathing, shortness of breath, back pain, night sweats, pain with urination, increased urinary frequency, increased urinary urgency, blood in her urine or stool, syncope or a near syncopal episode, recent trauma or falls, bowel incontinence, bladder incontinence, bowel retention, bladder retention, or any other complaints at this time. Onset (ago): day(s) (3) Location: right (great toe) Radiation: non-radiation Severity: mild Severity scale (1-10): 2 Quality: aching and dull Pain Consistency: constant Relieving factors: none Exacerbating factors: none Associated symptoms: denies other symptoms Treatments prior to arrival: none Related Data Home Medications Medication Instructions Recorded Confirmed alcohol swabs pad topical 06/04/20 09/03/22 allopurinol 100 mg tablet 400 mg PO DAILY 06/04/20 09/03/22 aspirin 81 mg tablet,delayed 81 mg PO DAILY 06/04/20 09/03/22 release carvedilol 25 mg tablet 25 mg PO BID 06/04/20 09/03/22 cholecalciferol (vitamin D3) 50 50 mcg PO DAILY 06/04/20 09/03/22 mcg (2,000 unit) capsule digoxin 125 mcg (0.125 mg) tablet 62.5 mcg PO 3XW 06/04/20 09/03/22 gabapentin 600 mg tablet 600 mg PO TID 06/04/20 09/03/22 loratadine 10 mg tablet 10 mg PO DAILY 06/04/20 09/03/22 methocarbamol 750 mg tablet 750 mg PO BID 06/04/20 09/03/22 omeprazole 10 mg capsule,delayed 10 mg PO DAILY 06/04/20 09/03/22 release sacubitril 49 mg-valsartan 51 mg 1 tab PO BID 06/04/20 09/03/22 tablet zolpidem 5 mg tablet 5 mg PO BEDTIME PRN 06/04/20 09/03/22 ferrous sulfate 325 mg (65 mg 325 mg PO BID 09/24/20 09/03/22 iron) tablet furosemide 40 mg tablet 40 mg PO DAILY 09/24/20 09/03/22 famotidine 40 mg tablet 40 mg PO DAILY 07/10/21 09/03/22 prednisone 10 mg tablet 10 mg PO DAILY 09/03/22 09/03/22 Previous Rx's Medication Instructions Recorded lancing device (Adjustable Lancing #1 ea 02/01/21 Device) lancets 28 gauge #200 ea 05/02/21 albuterol sulfate 90 mcg/actuation 2 puff inhalation Q4-6H PRN 07/30/21 aerosol inhaler (ProAir HFA) shortness of breath or wheezing #8.5 grams benzonatate 100 mg capsule 200 mg PO TID PRN cough #20 caps 07/30/21 doxycycline hyclate 100 mg tablet 100 mg PO Q12H 7 days #14 tabs 07/30/21 empagliflozin 25 mg tablet 25 mg PO DAILY 30 days #30 tabs 01/08/22 (Jardiance) insulin glargine 100 unit/mL (3 10 unit (0.1 mL) subcut DAILY 30 01/08/22 mL) subcutaneous pen ( #3 mL Solostar U-100 Insulin) pen needle, diabetic 32 gauge x #50 ea 01/08/22 (BD Radha 2nd Gen Pen Needle) blood sugar diagnostic (FreeStyle 1 strip miscellaneous BID 90 days 07/16/22 Lite Strips) #200 strips linagliptin 5 mg tablet (Tradjenta) 5 mg PO DAILY #30 tabs 08/11/22 atorvastatin 40 mg tablet 40 mg PO DAILY #90 tabs 11/20/22 prednisone 20 mg tablet 20 mg PO DAILY 7 days #7 tabs 01/03/23 Allergies Allergy/AdvReac Type Severity Reaction Status Date / Time egg [EGG] Allergy Intermediate RASH Verified 01/03/23 16:21 Fish Containing Products Allergy Intermediate RASH Verified 01/03/23 16:21 oxycodone [OXYCODONE] Allergy Intermediate RASH Verified 01/03/23 16:21 acetaminophen [From PERCOCET] Allergy Unknown RASH/ITCHIN Verified 01/03/23 16:21 G codeine [CODEINE] Allergy Unknown ITCHING Verified 01/03/23 16:21 hydrocodone [From VICODIN] Allergy Unknown UNKNOWN Verified 01/03/23 16:21 lisinopril [LISINOPRIL] Allergy Unknown UNKNOWN Verified 01/03/23 16:21 metoclopramide [From REGLAN] Allergy Unknown UNKNOWN Verified 01/03/23 16:21 naproxen [Naprosyn] Allergy Unknown Unknown Verified 01/03/23 16:21 tramadol Allergy Unknown Unknown Verified 01/03/23 16:21 Codeine Sulfate Allergy Unknown Unknown Uncoded 09/03/22 10:27 Percocet Allergy Unknown Unknown Uncoded 09/03/22 10:27 Vicodin Allergy Unknown Unknown Uncoded 09/03/22 10:27 Review of Systems Constitutional: Constitutional: Reports no additional constitutional complaints, Denies chills, Denies fever(s) and Denies night sweats Eyes: Eyes: Reports no additional eye complaints, Denies blurry vision, Denies change in vision, Denies diplopia, Denies eye discharge, Denies loss of vision and Denies eye pain ENT: Denies dizziness Cardiovascular: Cardiovascular: Reports no additional cardiovascular complaints, Denies chest pain, Denies lightheadedness, Denies Loss of Consciousness and Denies dyspnea Respiratory: Respiratory: Reports no additional respiratory complaints and Denies dyspnea Gastrointestinal: Gastrointestinal: Reports no additional gastrointestinal complaints, Denies abdominal pain, Denies melena, Denies hematochezia, Denies change in bowel habits and Denies change in stool character Genitourinary: Genitourinary: Denies hematuria, Denies urinary frequency, Denies dysuria, Denies urinary incontinence, Denies urinary hesitancy and Denies urinary urgency Musculoskeletal: Musculoskeletal: Reports no additional musculoskeletal complaints, Denies numbness and Denies tingling Comments: right great toe pain Neurologic: Denies dizziness, Denies loss of vision, Denies numbness and Denies tingling Psychiatric: Psychiatric: Reports no additional psychiatric complaints Endocrine: Endocrine: Reports no additional endocrine complaints Hematologic/Lymphatic: Hematologic/Lymphatic: Reports no additional hematologic/lymphatic complaints Allergic/Immunologic: Allergic/Immunologic: Reports no additional allergic/immunologic complaints PMFSH Past Medical History Attestation statement: The following information was validated with the patient. 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 Non-toxic multinodular goiter Vitamin D deficiency Surgical History AICD (automatic cardioverter/defibrillator) present Hx of appendectomy Hx of biopsy Hx of hysterectomy Family History Family History Father Alcoholism Diabetes Mother Arthritis Hypertension Social History Social History Alcohol intake: current Alcohol intake frequency: does not drink Patient Tobacco Use Status: Never used Tobacco Advance Directives: No Advance Directives Information Provided: No Physical Exam ED Vital Signs: Vital Signs - 24 hr 01/03/23 16:21 Temperature 97.1 F Pulse Rate 89 Respiratory Rate 18 Blood Pressure 112/55 L Pulse Oximetry 97 Oxygen Delivery Method Room Air BMI result Body Mass Index 25.2 Const General: cooperative, no acute distress, alert and awake Nutritional Appearance: well nourished Orientation/consciousness: patient oriented x3 Limitations: no limitations HENMT Head: Yes normal to inspection and Yes atraumatic Ears: hearing grossly normal bilaterally and external ears normal General nose exam: Normal external nose present, no nasal discharge noted and no epistaxis Face and sinus: Yes normal facial exam, No abrasion and No laceration Mouth: Normal oral and palatal mucosa present, no drooling and no muffled voice Eyes General: appearance normal, both eyes and all related structures Periorbital: periorbital findings normal Eyelids: Yes eyelids normal Conjunctivae: conjunctivae normal Pupils: Equal, round and reactive pupils present EOM: EOMs intact bilaterally Neck Neck: Yes normal visual inspection, Yes full ROM and Yes no lymphadenopathy Chest Chest palpation & inspection: normal inspection of the chest Resp Effort & Inspection: normal respiratory effort and able to speak in complete sentences GI Inspection: Yes normal to inspection Neuro General: patient oriented x3 and moves all extremities Cranial nerves: Yes Equal, round and reactive pupils present Cognition (Neuro): normal cognition Motor exam (neuro): 5/5 motor strength present throughout Sensory Exam: Normal double simultaneous stimulation for sensation Coordination: [id number] test normal Extrem General: Yes normal to inspection, Yes full ROM and Yes capillary refill normal Psych Appearance: grossly normal Mental Status: mental status grossly normal Affect: normal affect Attitude: cooperative Thought process: Normal thought process present Thought content: Normal thought content present Insight: Good insight present (Psych) Medical Decision Making Medical Decision Making MDM Narrative: Patient is a 67 year old assigned female at with a history of DM, HTN, and gout presenting to the emergency department today with right great toe pain. Patient's physical exam was unremarkable. I explained my physical exam findings to the patient. I answered all questions asked by the patient. I stressed the importance of the patient taking her medication as prescribed. I stressed the importance of the patient following up with her primary care provider. I stressed the importance of the patient returning to the emergency department immediately if her symptoms were to worsen or if she were to develop any dizziness, shortness of breath, difficulty breathing, chest pain, blurry vision, loss of vision, nausea, vomiting, abdominal pain, fever, chills, back pain, or any other complaints. Patient verbalized agreement and understanding with this treatment plan and discharge. Differential Diagnosis Differential Diagnoses: The differential diagnosis associated with the presentation includes right great toe pain, gout Discharge Plan Discharge Clinical Impression: Gout Patient Disposition: Home, Self-Care Instructions: Gout (ED) Additional Instructions: Follow up with your primary care provider. Return to the emergency department immediately if your symptoms worsen or if you develop any dizziness, shortness of breath, difficulty breathing, chest pain, blurry vision, loss of vision, nausea, vomiting, abdominal pain, fever, chills, back pain, or any other complaints. Valerie un seguimiento con castanon proveedor de atenci?n primaria. Regrese al departamento de emergencias de inmediato si rigoberto s?ntomas empeoran o si presenta mareos, falta de aire, dificultad para respirar, dolor de pecho, visi?n borrosa, p?rdida de la visi?n, n?useas, v?mitos, dolor abdominal, fiebre, escalofr?os, dolor de espalda o cualquier otras quejas. Prescriptions: New prednisone 20 mg tablet 20 mg PO DAILY 7 Days Qty: 7 0RF No Action (DME) lancing device [Adjustable Lancing Device] Misc See Rx Instructions .ROUTE .MEDSUPPLY Qty: 1 0RF Rx Instructions: 3 times a day (DME) lancets 28 gauge misc See Rx Instructions topical .MEDSUPPLY Qty: 200 3RF Rx Instructions: To test blood glucose 2 times a day Lantus Solostar U-100 Insulin 100 unit/mL (3 mL) insulin pen 10 unit subcut DAILY 30 Days Qty: 3 6RF (DME) pen needle, diabetic [BD Radha 2nd Gen Pen Needle] 32 gauge x 5/32 needle See Rx Instructions .ROUTE .MEDSUPPLY Qty: 50 6RF Rx Instructions: once a day Jardiance 25 mg tablet 25 mg PO DAILY 30 Days Qty: 30 6RF FreeStyle Lite Strips Strip 1 strip miscellaneous BID 90 Days Qty: 200 1RF Tradjenta 5 mg tablet 5 mg PO DAILY Qty: 30 6RF atorvastatin 40 mg tablet 40 mg PO DAILY Qty: 90 0RF albuterol sulfate [ProAir HFA] 90 mcg/actuation HFA aerosol inhaler 2 puff inhalation Q4-6H PRN (Reason: shortness of breath or wheezing) Qty: 8.5 0RF doxycycline hyclate 100 mg tablet 100 mg PO Q12H 7 Days Qty: 14 0RF benzonatate 100 mg capsule 200 mg PO TID PRN (Reason: cough) Qty: 20 0RF alcohol swabs Pads, Medicated topical methocarbamol 750 mg tablet 750 mg PO BID zolpidem 5 mg tablet 5 mg PO BEDTIME PRN cholecalciferol (vitamin D3) 50 mcg (2,000 unit) capsule 50 mcg PO DAILY omeprazole 10 mg capsule,delayed release(DR/EC) 10 mg PO DAILY digoxin 125 mcg (0.125 mg) tablet 62.5 mcg PO 3XW loratadine 10 mg tablet 10 mg PO DAILY carvedilol 25 mg tablet 25 mg PO BID aspirin 81 mg tablet,delayed release (DR/EC) 81 mg PO DAILY gabapentin 600 mg tablet 600 mg PO TID allopurinol 100 mg tablet 400 mg PO DAILY Entresto 49-51 mg tablet 1 tab PO BID furosemide 40 mg tablet 40 mg PO DAILY ferrous sulfate 325 mg (65 mg iron) tablet 325 mg PO BID famotidine 40 mg tablet 40 mg PO DAILY prednisone 10 mg tablet 10 mg PO DAILY Taper: Prednisone 40 mg daily for 3 Days and 0 Hour 30 mg daily for 3 Days and 0 Hour 20 mg daily for 3 Days and 0 Hour 10 mg daily for 3 Days and 0 Hour Rx Instructions: prednisone 10 mg: take 4 tablets (40 mg) for 2 days; 3 tablets (30 mg) for 2 days; 2 (20mg) tablets for 2 days and then 1 (10mg) tablet for 2 days Referrals: Cordelia Moraes PAOliviaC [Primary Care Provider] - Interventions: ED Discharge Assessment Last Done: 01/03/23 16:32 Print Language: Ukrainian
== END 2023-01-03 16:32 | disposition home or self-care (01) ==
PROVIDERS: Emergency Provider Emergency Medicine; PCP Physician Assistant
DX: M10.072 Idiopathic gout, left ankle and foot (principal); M10.071 Idiopathic gout, right ankle and foot; Z79.4 Long term (current) use of insulin; Z79.899 Other long term (current) drug therapy
CPT/HCPCS: 99282; 99283

== ENCOUNTER 2023-01-05 13:33 | Outpatient (REF) | payer OTHER, SELFPAY ==
[2023-01-05 15:30] LABS: Albumin Level 3.9 g/dL (3.5-5.0); Calcium 9.2 mg/dL (8.4-10.2)
[2023-01-05 15:54] LABS: Free T4 (Free Thyroxine) 0.99 ng/dL (0.71-1.85); Thyroid Stimulating Hormone 0.53 uIU/mL (0.32-4.0); Vitamin D 25-OH Total 57.7 ng/mL (>30)
[2023-01-06 18:28] LABS: Calcium (PTHI) 9.1 mg/dL (8.6-10.4); PTHI 71 pg/mL (16-77)
== END 2023-01-05 13:34 | disposition home or self-care (01) ==
LOC: HO.LAB 13:33
PROVIDERS: PCP Physician Assistant; Visit Provider Internal Medicine
DX: E04.2 Nontoxic multinodular goiter (principal); E55.9 Vitamin D deficiency, unspecified
CPT/HCPCS: 36415; 82040; 82306; 82310; 83970; 84439; 84443; 99212

== ENCOUNTER 2023-01-25 14:11 | Emergency (ER) | payer OTHER, SELFPAY ==
--- NOTE | ~2023-01-25 | XR_ITS ---
EXAMINATION: XR CHEST CLINICAL INFORMATION: Cough, chest pain COMPARISON: Chest x-ray on 07/22/2021 TECHNIQUE: 2 views of the chest were obtained. FINDINGS: No significant abnormality is noted involving the heart, lungs, mediastinum, bony thorax or soft tissues. There is a left chest single lead cardiac device. XR/XR chest 2V IMPRESSION: No acute disease.
[2023-01-25 15:03] VITALS: BP 119/55; PULSE 82; RESP 16; TEMP 36.2; O2SAT 97; BMI 27.7
--- NOTE | 2023-01-25 15:03 | ED.GENADULT ---
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 The patient reports pain in her left big toe which she attributes to gout She reports that this has been an issue for the last 3 days She states that she used to be on a medication that may have been ?allopurinol. She stop taking it due to ?stomach issues. ? Denies any trauma to the foot The patient also complains of a dry cough which she has had for 2 weeks. She has a sore throat which is to the coughing. Denies any shortness of breath, chest pain, fevers, chills Related Data Home Medications Medication Instructions Recorded Confirmed alcohol swabs pad topical 06/04/20 01/05/23 allopurinol 100 mg tablet 400 mg PO DAILY 06/04/20 01/05/23 aspirin 81 mg tablet,delayed 81 mg PO DAILY 06/04/20 01/05/23 release carvedilol 25 mg tablet 25 mg PO BID 06/04/20 01/05/23 cholecalciferol (vitamin D3) 50 50 mcg PO DAILY 06/04/20 01/05/23 mcg (2,000 unit) capsule digoxin 125 mcg (0.125 mg) tablet 62.5 mcg PO 3XW 06/04/20 01/05/23 gabapentin 600 mg tablet 600 mg PO TID 06/04/20 01/05/23 loratadine 10 mg tablet 10 mg PO DAILY 06/04/20 01/05/23 methocarbamol 750 mg tablet 750 mg PO BID 06/04/20 01/05/23 omeprazole 10 mg capsule,delayed 10 mg PO DAILY 06/04/20 01/05/23 release sacubitril 49 mg-valsartan 51 mg 1 tab PO BID 06/04/20 01/05/23 tablet zolpidem 5 mg tablet 5 mg PO BEDTIME PRN 06/04/20 01/05/23 ferrous sulfate 325 mg (65 mg 325 mg PO BID 09/24/20 01/05/23 iron) tablet furosemide 40 mg tablet 40 mg PO DAILY 09/24/20 01/05/23 famotidine 40 mg tablet 40 mg PO DAILY 07/10/21 01/05/23 apixaban 5 mg tablet (Eliquis) 5 mg PO BID 01/05/23 01/05/23 diclofenac sodium 1 % topical gel 1 ea topical QID 01/05/23 01/05/23 fluticasone propionate 50 0 mcg intranasal DAILY PRN 01/05/23 01/05/23 mcg/actuation nasal allergies spray,suspension triamcinolone acetonide 0.5 % appl topical 01/05/23 01/05/23 topical cream Previous Rx's Medication Instructions Recorded lancing device (Adjustable Lancing #1 ea 02/01/21 Device) lancets 28 gauge #200 ea 05/02/21 albuterol sulfate 90 mcg/actuation 2 puff inhalation Q4-6H PRN 07/30/21 aerosol inhaler (ProAir HFA) shortness of breath or wheezing #8.5 grams benzonatate 100 mg capsule 200 mg PO TID PRN cough #20 caps 07/30/21 empagliflozin 25 mg tablet 25 mg PO DAILY 30 days #30 tabs 01/08/22 (Jardiance) insulin glargine 100 unit/mL (3 10 unit (0.1 mL) subcut DAILY 30 01/08/22 mL) subcutaneous pen ( #3 mL Solostar U-100 Insulin) pen needle, diabetic 32 gauge x #50 ea 01/08/2232 (BD Radha 2nd Gen Pen Needle) blood sugar diagnostic (FreeStyle 1 strip miscellaneous BID 90 days 07/16/22 Lite Strips) #200 strips linagliptin 5 mg tablet (Tradjenta) 5 mg PO DAILY #30 tabs 08/11/22 atorvastatin 40 mg tablet 40 mg PO DAILY #90 tabs 11/20/22 prednisone 20 mg tablet 20 mg PO DAILY 7 days #7 tabs 01/03/23 benzonatate 200 mg capsule 200 mg PO TID PRN cough #20 caps 01/25/23 colchicine 0.6 mg tablet 0.6 mg PO DAILY #7 tabs 01/25/23 Allergies Allergy/AdvReac Type Severity Reaction Status Date / Time egg [EGG] Allergy Intermediate RASH Verified 01/05/23 13:56 Fish Containing Products Allergy Intermediate RASH Verified 01/05/23 13:56 oxycodone [OXYCODONE] Allergy Intermediate RASH Verified 01/05/23 13:56 acetaminophen [From PERCOCET] Allergy Unknown RASH/ITCHIN Verified 01/05/23 13:56 G codeine [CODEINE] Allergy Unknown ITCHING Verified 01/05/23 13:56 hydrocodone [From VICODIN] Allergy Unknown UNKNOWN Verified 01/05/23 13:56 lisinopril [LISINOPRIL] Allergy Unknown UNKNOWN Verified 01/05/23 13:56 metoclopramide [From REGLAN] Allergy Unknown UNKNOWN Verified 01/05/23 13:56 naproxen [Naprosyn] Allergy Unknown Unknown Verified 01/05/23 13:56 tramadol Allergy Unknown Unknown Verified 01/05/23 13:56 Codeine Sulfate Allergy Unknown Unknown Uncoded 01/05/23 13:56 Percocet Allergy Unknown Unknown Uncoded 01/05/23 13:56 Vicodin Allergy Unknown Unknown Uncoded 01/05/23 13:56 Review of Systems Constitutional: Constitutional: Reports as per HPI, Denies chills, Denies fatigue, Denies fever(s) and Denies headache(s) ENT: Denies headache(s) Cardiovascular: Cardiovascular: Denies chest pain and Denies dyspnea Respiratory: Respiratory: Reports cough and Denies dyspnea Gastrointestinal: Gastrointestinal: Denies abdominal pain, Denies constipation and Denies vomiting Genitourinary: Genitourinary: Denies dysuria Musculoskeletal: Musculoskeletal: Reports arthralgias and Reports joint swelling Neurologic: Denies headache(s) and Denies focal weakness Endocrine: Endocrine: Denies fatigue PMFSH Past Medical History Medical History CHF (congestive heart failure) CKD (chronic kidney disease) stage 3, GFR 30-59 ml/min Diabetes type 2, uncontrolled Diabetic neuropathy associated with type 2 diabetes mellitus Dyslipidemia Hypertension Hypoglycemia unawareness associated with type 2 diabetes mellitus 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 Non-toxic multinodular goiter Vitamin D deficiency Surgical History AICD (automatic cardioverter/defibrillator) present Hx of appendectomy Hx of biopsy Hx of hysterectomy Family History Family History Father Alcoholism Diabetes Mother Arthritis Hypertension Social History Social History Alcohol intake: current Alcohol intake frequency: does not drink Patient Tobacco Use Status: Never used Tobacco Advance Directives: No Advance Directives Information Provided: No Physical Exam ED Vital Signs: Vital Signs - 24 hr 01/25/23 15:03 Temperature 97.2 F Pulse Rate 82 Respiratory Rate 16 Blood Pressure 119/55 L Pulse Oximetry 97 Oxygen Delivery Method Room Air BMI result Body Mass Index 27.7 Const General: healthy appearing, comfortable, no acute distress, alert and awake Nutritional Appearance: well nourished Orientation/consciousness: patient oriented x3 HENMT Head: Yes normocephalic and Yes atraumatic Eyes Eyelids: Yes eyelids normal Conjunctivae: conjunctivae normal Sclerae: sclerae normal Corneas: corneas normal Pupils: Equal, round and reactive pupils present EOM: EOMs intact bilaterally Neck Neck: Yes full ROM Resp Effort & Inspection: normal respiratory effort, able to speak in complete sentences, no audible wheezes and not labored Auscultation: clear to auscultation bilaterally Skin General skin exam: elasticity normal Neuro General: patient oriented x3 Cranial nerves: Yes Equal, round and reactive pupils present and Yes Bilaterally intact EOM present Cognition (Neuro): normal cognition Extrem Other: Moving all extremities well without any obvious deformities. Very faint erythema around the left great toe. There is tenderness to this area with no significant edema. No open wounds, no streaking erythema. No fluctuance Course Course Course Narrative: This is an RME: Additional HPI, ROS, PE not included below will be deferred to primary provider. Patient is a 67-year-old Egyptian-speaking female who presents emergency department with reports of left foot pain, that feels consistent with prior gout flares, onset 15 days ago, not currently taking any medications for this, tylenol, OTC creams and pain patches is not helping. Additionally she is complaining of a cough sore throat and chest pain experienced while coughing, x 2 weeks. Denies fevers, chills, shortness of breath, difficulty breathing, ABD pain, N/V. Plan: labs, EKG, CXR Medical Decision Making Medical Decision Making MDM Narrative: Patient complains of left great toe pain and swelling consistent with her gout. On exam it also appears consistent with gout. Will treat with colchicine. It appears very mild the patient is diabetic, so we will withhold steroids at this time. The patient has a dry cough, lungs are clear to auscultation, chest x-ray clear without pneumonia or infiltrates. Will treat with Tessalon Perles. She does not appear to be on any Aly inhibitors. Differential Diagnosis Gout Arthritis Cough Postnasal drip COPD Asthma Lab Data MDM Lab Attestation statement: I reviewed the patient's lab results. Chronic mild leukocytosis. No significant chemistry abnormalities 01/25/23 15:59 01/25/23 15:59 Labs: Lab Results 01/25/23 01/25/23 01/25/23 Range/Units 15:59 15:59 15:59 WBC 13.2 H (4.8-10.8) X10*3/uL RBC 4.10 L (4.20-5.50) X10*6/uL Hgb 10.2 L (12.0-16.0) g/dl Hct 33.6 L (37.0-47.0) % MCV 82.0 (80.0-98.0) fL MCH 24.9 L (27.0-33.0) pg MCHC 30.4 L (31.0-35.0) g/dl RDW 14.1 (11.0-16.0) % Plt Count 276 (160-400) X10*3/uL MPV 9.6 (9.4-12.3) fL Immature Gran % (Auto) 0.4 (0.0-0.4) % Neut % (Auto) 63.8 (45-73) % Lymph % (Auto) 25.0 (20-40) % [place] % (Auto) 8.8 (2-11) % Eos % (Auto) 1.4 (0-4) % Baso % (Auto) 0.6 (0-2) % Lymph # (Auto) 3.3 (1.2-4.9) X10*3/uL [place] # (Auto) 1.2 (0.1-1.2) X10*3/uL Eos # (Auto) 0.2 (0.0-0.4) X10*3/uL Baso # (Auto) 0.1 (0.0-0.2) X10*3/uL Abs Immat Gran (auto) 0.05 H (0.00-0.03) X10*3/uL Absolute Neuts (auto) 8.4 H (2.0-8.3) x10*3/uL Absolute Nucleated RBC 0.000 (0.0-0.012) X10*3/uL Nucleated RBC % (auto) 0.0 (0.0-0.2) /100WBC Sodium (135-145) mmol/L Potassium (3.3-5.1) mmol/L Chloride (96-108) mmol/L Carbon Dioxide (22-29) mmol/L Anion Gap (12-20) BUN (9-16) mg/dL Creatinine (0.5-1.4) mg/dL Estim Creat Clear Calc Estimated GFR Random Glucose (60-115) mg/dL Calcium (8.4-10.2) mg/dL Total Bilirubin (0.0-1.0) mg/dL AST (5-31) U/L ALT (0-31) U/L Alkaline Phosphatase (39-117) U/L Troponin I High Sens 2.7 (<3.5-17.0) ng/L Total Protein (6.5-8.0) g/dL Albumin (3.5-5.0) g/dL COVID-19 ([facility]) Negative (Negative) COVID-19 Clin Com See Note 01/25/23 Range/Units 15:59 WBC (4.8-10.8) X10*3/uL RBC (4.20-5.50) X10*6/uL Hgb (12.0-16.0) g/dl Hct (37.0-47.0) % MCV (80.0-98.0) fL MCH (27.0-33.0) pg MCHC (31.0-35.0) g/dl RDW (11.0-16.0) % Plt Count (160-400) X10*3/uL MPV (9.4-12.3) fL Immature Gran % (Auto) (0.0-0.4) % Neut % (Auto) (45-73) % Lymph % (Auto) (20-40) % [place] % (Auto) (2-11) % Eos % (Auto) (0-4) % Baso % (Auto) (0-2) % Lymph # (Auto) (1.2-4.9) X10*3/uL [place] # (Auto) (0.1-1.2) X10*3/uL Eos # (Auto) (0.0-0.4) X10*3/uL Baso # (Auto) (0.0-0.2) X10*3/uL Abs Immat Gran (auto) (0.00-0.03) X10*3/uL Absolute Neuts (auto) (2.0-8.3) x10*3/uL Absolute Nucleated RBC (0.0-0.012) X10*3/uL Nucleated RBC % (auto) (0.0-0.2) /100WBC Sodium 144 (135-145) mmol/L Potassium 3.5 (3.3-5.1) mmol/L Chloride 106 (96-108) mmol/L Carbon Dioxide 29 (22-29) mmol/L Anion Gap 13 (12-20) BUN 11 (9-16) mg/dL Creatinine 0.96 (0.5-1.4) mg/dL Estim Creat Clear Calc 40.1 Estimated GFR 58 Random Glucose 125 H (60-115) mg/dL Calcium 8.8 (8.4-10.2) mg/dL Total Bilirubin 0.5 (0.0-1.0) mg/dL AST 16 (5-31) U/L ALT 16 (0-31) U/L Alkaline Phosphatase 84 (39-117) U/L Troponin I High Sens (<3.5-17.0) ng/L Total Protein 6.8 (6.5-8.0) g/dL Albumin 3.5 (3.5-5.0) g/dL COVID-19 ([facility]) (Negative) COVID-19 Clin Com Discharge Plan Discharge Clinical Impression: Gouty arthritis of left great toe, Cough Patient Disposition: Home, Self-Care Instructions: Low Purine Diet (ED), Acute Cough (ED) Additional Instructions: Use colchicine as directed for the gout/left great toe pain Use benzonatate Perles as needed for cough Follow-up with your primary doctor Return for new or worsening symptoms Your blood work was reassuring today. Your chest x-ray was clear Prescriptions: New benzonatate 200 mg capsule 200 mg PO TID PRN (Reason: cough) Qty: 20 0RF colchicine 0.6 mg tablet 0.6 mg PO DAILY Qty: 7 0RF No Action (DME) lancing device [Adjustable Lancing Device] Misc See Rx Instructions .ROUTE .MEDSUPPLY Qty: 1 0RF Rx Instructions: 3 times a day (DME) lancets 28 gauge misc See Rx Instructions topical .MEDSUPPLY Qty: 200 3RF Rx Instructions: To test blood glucose 2 times a day Lantus Solostar U-100 Insulin 100 unit/mL (3 mL) insulin pen 10 unit subcut DAILY 30 Days Qty: 3 6RF (DME) pen needle, diabetic [BD Radha 2nd Gen Pen Needle] 32 gauge x 5/32 needle See Rx Instructions .ROUTE .MEDSUPPLY Qty: 50 6RF Rx Instructions: once a day Jardiance 25 mg tablet 25 mg PO DAILY 30 Days Qty: 30 6RF FreeStyle Lite Strips Strip 1 strip miscellaneous BID 90 Days Qty: 200 1RF Tradjenta 5 mg tablet 5 mg PO DAILY Qty: 30 6RF atorvastatin 40 mg tablet 40 mg PO DAILY Qty: 90 0RF albuterol sulfate [ProAir HFA] 90 mcg/actuation HFA aerosol inhaler 2 puff inhalation Q4-6H PRN (Reason: shortness of breath or wheezing) Qty: 8.5 0RF benzonatate 100 mg capsule 200 mg PO TID PRN (Reason: cough) Qty: 20 0RF prednisone 20 mg tablet 20 mg PO DAILY 7 Days Qty: 7 0RF alcohol swabs Pads, Medicated topical methocarbamol 750 mg tablet 750 mg PO BID zolpidem 5 mg tablet 5 mg PO BEDTIME PRN cholecalciferol (vitamin D3) 50 mcg (2,000 unit) capsule 50 mcg PO DAILY omeprazole 10 mg capsule,delayed release(DR/EC) 10 mg PO DAILY digoxin 125 mcg (0.125 mg) tablet 62.5 mcg PO 3XW loratadine 10 mg tablet 10 mg PO DAILY carvedilol 25 mg tablet 25 mg PO BID aspirin 81 mg tablet,delayed release (DR/EC) 81 mg PO DAILY gabapentin 600 mg tablet 600 mg PO TID allopurinol 100 mg tablet 400 mg PO DAILY Entresto 49-51 mg tablet 1 tab PO BID furosemide 40 mg tablet 40 mg PO DAILY ferrous sulfate 325 mg (65 mg iron) tablet 325 mg PO BID triamcinolone acetonide 0.5 % cream topical diclofenac sodium 1 % gel 1 ea topical QID fluticasone propionate 50 mcg/actuation spray,suspension 0 mcg intranasal DAILY PRN (Reason: allergies) Eliquis 5 mg tablet 5 mg PO BID famotidine 40 mg tablet 40 mg PO DAILY
--- NOTE | 2023-01-25 15:13 | ECG_ITS ---
Test Reason : CP Blood Pressure : / mmHG Vent. Rate : 081 BPM Atrial Rate : 081 BPM P-R Int : 180 ms QRS Dur : 118 ms QT Int : 380 ms P-R-T Axes : 045 -37 -38 degrees QTc Int : 441 ms Normal sinus rhythm Left axis deviation Left ventricular hypertrophy with QRS widening ( R in aVL , [place] product ) Cannot rule out Septal infarct , age undetermined T wave abnormality, consider inferior ischemia T wave abnormality, consider anterolateral ischemia Abnormal ECG When compared to the previous EKG of 27 january 2015, diffuse new T inversions seen Referred By: Lucia Gavin Electronically Signed By:DARCY MELENDEZ
[2023-01-25 16:05] LABS: MANUAL DIFF FLAG NO
[2023-01-25 16:06] LABS: Basophils Absolute Auto 0.1 X10*3/uL (0.0-0.2); Basophils Percent Auto 0.6 % (0-2); Eosinophils Absolute Auto 0.2 X10*3/uL (0.0-0.4); Eosinophils Percent Auto 1.4 % (0-4); Hematocrit 33.6 % (37.0-47.0); Hemoglobin 10.2 g/dl (12.0-16.0); Imm Gran Abs Auto 0.05 X10*3/uL (0.00-0.03); Imm Gran Pct Auto 0.4 % (0.0-0.4); Lymphocytes Absolute Auto 3.3 X10*3/uL (1.2-4.9); Mean Corpuscular HGB Conc 30.4 g/dl (31.0-35.0); Mean Corpuscular Hemoglobin 24.9 pg (27.0-33.0); Mean Platelet Volume 9.6 fL (9.4-12.3); Monocytes Absolute Auto 1.2 X10*3/uL (0.1-1.2); Monocytes Percent Auto 8.8 % (2-11); Neutrophils Absolute Auto 8.4 x10*3/uL (2.0-8.3); Neutrophils Percent Auto 63.8 % (45-73); Platelet Count 276 X10*3/uL (160-400); Red Cell Distribution Width 14.1 % (11.0-16.0); White Blood Count 13.2 X10*3/uL (4.8-10.8)
[2023-01-25 16:20] LABS: Alanine Aminotransferase 16 U/L (0-31); Albumin Level 3.5 g/dL (3.5-5.0); Alkaline Phosphatase 84 U/L (39-117); Anion Gap 13 (12-20); Aspartate Amino Transferase 16 U/L (5-31); Bilirubin Total 0.5 mg/dL (0.0-1.0); Blood Urea Nitrogen 11 mg/dL (9-16); Calcium 8.8 mg/dL (8.4-10.2); Carbon Dioxide 29 mmol/L (22-29); Chloride 106 mmol/L (96-108); Creatinine Clr Calc Pharmacy 40.1; Estimated Glomerular Filt Rate 58; Glucose Random 125 mg/dL (60-115); Potassium 3.5 mmol/L (3.3-5.1); Sodium 144 mmol/L (135-145); Total Protein 6.8 g/dL (6.5-8.0)
[2023-01-25 16:23] LABS: COVID-19 Test Negative (Negative); IDNOW Serial# BCCEAD1C
[2023-01-25 16:27] LABS: Troponin-I High Sensitivity 2.7 ng/L (<3.5-17.0)
[2023-01-25 17:42] VITALS: BP 117/55; PULSE 84; RESP 16; TEMP 37; O2SAT 98
== END 2023-01-25 17:49 | disposition home or self-care (01) ==
PROVIDERS: Nurse Practitioner Family; Emergency Provider Internal Medicine
DX: M10.072 Idiopathic gout, left ankle and foot (principal); R07.89 Other chest pain; R05.9 Cough, unspecified; Z20.822 Contact with and (suspected) exposure to COVID-19; Z20.828 Contact with and (suspected) exposure to other viral communicable diseases; Z79.899 Other long term (current) drug therapy
CPT/HCPCS: 36415; 71046; 80053; 84484; 85025; 87635; 93005; 99284

== ENCOUNTER 2023-04-07 12:39 | Outpatient (REF) | payer OTHER, SELFPAY ==
--- NOTE | ~2023-04-07 | US_ITS ---
EXAMINATION: US THYROID CLINICAL INFORMATION: Nontoxic multinodular goiter. COMPARISON: Ultrasound soft tissue head/neck thyroid dated 06/20/2021 and 01/02/2020. TECHNIQUE: Linear transducer grayscale and color Doppler examination with attention to the region of the thyroid. FINDINGS: SIZE: Measurements of the solitary left thyroid lobe and nodules are given in sagittal, anteroposterior and transverse dimensions respectively. Right Thyroid Lobe: Surgically absent. Left Thyroid Lobe: 4.0 x 1.7 x 1.7 cm, volume 6.0 mL. Previously 4.9 x 1.1 x 1.8 cm, volume 5.1 mL. Parenchyma: The gland echotexture is homogeneous. Thyroid vascularity is increased. Isthmus: 0.3 cm in maximum AP dimension. Previously 0.3 cm. Estimated total number of nodules greater than or equal to 1 cm: 2. Senior Planning Analyst nodules are described as follows: 1. Location: Left superior. Size: 0.4 x 0.3 x 0.4 cm, volume 0.03 mL. Previously: 0.4 x 0.3 x 0.4 cm, volume 0.03 mL. Nodule characteristics: Composition: Cystic(0). ACR TI-RADS total points: 0 Previous: 0 ACR TI-RADS category: 1 Previous: 1 Significant change in size (>/= 20% in 2 dimensions and minimal increase of 2 mm or 50% or greater increase in volume): No Change in features: No Change in ACR TI-RADS risk category: No 2. Location: Left superior medial. Size: 0.8 x 0.4 x 0.5 cm, volume 0.08 mL. Previously: New since the previous study. Nodule characteristics: Composition: Cystic(0). ACR TI-RADS total points: 0 ACR TI-RADS category: 1 3. Location: Left mid. Size: 1.0 x 0.7 x 0.9 cm, volume 0.34 mL. Previously: New since the previous study. Nodule characteristics: Composition: Solid (2). Echogenicity: Hypoechoic (2). Shape: Not taller than wide (0). Margins: Ill-defined (0). Echogenic Foci: None (0). ACR TI-RADS total points: 4 ACR TI-RADS category: 4 4. Location: Left mid. Size: 1.2 x 0.7 x 1.0 cm, volume 0.45 mL. Previously: New since the previous study. Nodule characteristics: Composition: Solid/almost completely solid (2). Echogenicity: Isoechoic (1). Shape: Not taller than wide (0). Margins: Ill-defined (0). Echogenic Foci: None (0). ACR TI-RADS total points: 3 ACR TI-RADS category: 3 NODES: No lymphadenopathy is seen in the tissue surrounding the thyroid gland. US/US thyroid IMPRESSION: Routine sonographic surveillance of left mid nodule. ACR TI-RADS RECOMMENDATION REFERENCE: Ultrasound-guided fine-needle aspiration, follow up ultrasound, no further followup. * TR1 (0 point) and TR2 (2 points): No FNA or followup * TR3 (3 points): FNA if more than or equal to 2.5 cm in maximum dimension, follow up ultrasound in 1, 3 and 5 years if 1.5 to 2.4 cm in maximum dimension. * TR4 (4-6 points): FNA if more than or equal to 1.5 cm in maximum dimension, follow up ultrasound in 1, 2, 3 and 5 years if 1 to 1.4 cm in maximum dimension. * TR5 (more than or equal to 7 points): FNA if more than or equal to 1 cm in maximum dimension, follow up ultrasound every year for 5 years if 0.5 to 0.9 cm in maximum dimension. * TR3, TR4 or TR5 nodules that are below the size threshold for follow up receive no followup.
== END 2023-04-07 12:40 | disposition home or self-care (01) ==
LOC: HO.US 12:39
PROVIDERS: Visit Provider Internal Medicine
DX: E04.2 Nontoxic multinodular goiter (principal)
CPT/HCPCS: 76536

== ENCOUNTER 2023-05-27 12:55 | Emergency (ER) | payer OTHER, SELFPAY ==
--- NOTE | ~2023-05-27 | XR_ITS ---
EXAMINATION: XR CHEST CLINICAL INFORMATION: Pneumonia COMPARISON: Previous chest x-ray January 2023 TECHNIQUE: Frontal view of the chest was obtained. FINDINGS: The cardiac and mediastinal contours are stable. Left subclavian single chamber pacemaker/ AICD device appears unchanged. The lungs are clear without evidence of pneumonia. No pleural effusion or pneumothorax. Bony structures are unremarkable. XR/XR chest 1V IMPRESSION: No evidence of pneumonia.
[2023-05-27 14:11] VITALS: BP 113/66; PULSE 83; RESP 17; TEMP 35.8; O2SAT 97; BMI 30.7
--- NOTE | 2023-05-27 14:15 | ED.GENADULT ---
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 Patient denies any headaches, fevers, chills chest pain shortness of breath, abdominal pain, nausea, vomiting or diarrhea. Reports difficulty sleeping as the cough keeps her awake. No other complaints or concerns at this time. MD complaint: Cough Onset (ago): day(s) Relieving factors: none Exacerbating factors: none Associated symptoms: cough Related Data Home Medications Medication Instructions Recorded Confirmed alcohol swabs pad topical 06/04/20 01/05/23 allopurinol 100 mg tablet 400 mg PO DAILY 06/04/20 01/05/23 aspirin 81 mg tablet,delayed 81 mg PO DAILY 06/04/20 01/05/23 release carvedilol 25 mg tablet 25 mg PO BID 06/04/20 01/05/23 cholecalciferol (vitamin D3) 50 50 mcg PO DAILY 06/04/20 01/05/23 mcg (2,000 unit) capsule digoxin 125 mcg (0.125 mg) tablet 62.5 mcg PO 3XW 06/04/20 01/05/23 gabapentin 600 mg tablet 600 mg PO TID 06/04/20 01/05/23 loratadine 10 mg tablet 10 mg PO DAILY 06/04/20 01/05/23 methocarbamol 750 mg tablet 750 mg PO BID 06/04/20 01/05/23 omeprazole 10 mg capsule,delayed 10 mg PO DAILY 06/04/20 01/05/23 release sacubitril 49 mg-valsartan 51 mg 1 tab PO BID 06/04/20 01/05/23 tablet zolpidem 5 mg tablet 5 mg PO BEDTIME PRN 06/04/20 01/05/23 ferrous sulfate 325 mg (65 mg 325 mg PO BID 09/24/20 01/05/23 iron) tablet furosemide 40 mg tablet 40 mg PO DAILY 09/24/20 01/05/23 famotidine 40 mg tablet 40 mg PO DAILY 07/10/21 01/05/23 apixaban 5 mg tablet (Eliquis) 5 mg PO BID 01/05/23 01/05/23 diclofenac sodium 1 % topical gel 1 ea topical QID 01/05/23 01/05/23 fluticasone propionate 50 0 mcg intranasal DAILY PRN 01/05/23 01/05/23 mcg/actuation nasal allergies spray,suspension triamcinolone acetonide 0.5 % appl topical 01/05/23 01/05/23 topical cream Previous Rx's Medication Instructions Recorded lancing device (Adjustable Lancing #1 ea 02/01/21 Device) lancets 28 gauge #200 ea 05/02/21 albuterol sulfate 90 mcg/actuation 2 puff inhalation Q4-6H PRN 07/30/21 aerosol inhaler (ProAir HFA) shortness of breath or wheezing #8.5 grams benzonatate 100 mg capsule 200 mg (2 x 100 mg) PO TID PRN 07/30/21 cough #20 caps empagliflozin 25 mg tablet 25 mg PO DAILY 30 days #30 tabs 01/08/22 (Jardiance) insulin glargine 100 unit/mL (3 10 unit (0.1 mL) subcut DAILY 30 01/08/22 mL) subcutaneous pen ( #3 mL Solostar U-100 Insulin) pen needle, diabetic 32 gauge x #50 ea 01/08/22 (BD Radha 2nd Gen Pen Needle) blood sugar diagnostic (FreeStyle 1 strip miscellaneous BID 90 days 07/16/22 Lite Strips) #200 strips prednisone 20 mg tablet 20 mg PO DAILY 7 days #7 tabs 01/03/23 benzonatate 200 mg capsule 200 mg PO TID PRN cough #20 caps 01/25/23 colchicine (gout) 0.6 mg tablet 0.6 mg PO DAILY #7 tabs 01/25/23 linagliptin 5 mg tablet (Tradjenta) 5 mg PO DAILY #30 tabs 05/06/23 atorvastatin 40 mg tablet 40 mg PO DAILY #90 tabs 05/25/23 benzonatate 100 mg capsule 200 mg (2 x 100 mg) PO TID PRN 05/27/23 cough #20 caps doxycycline hyclate 100 mg tablet 100 mg PO BID 7 days #14 tabs 05/27/23 Allergies Allergy/AdvReac Type Severity Reaction Status Date / Time egg [EGG] Allergy Intermediate RASH Verified 01/05/23 13:56 Fish Containing Products Allergy Intermediate RASH Verified 01/05/23 13:56 oxycodone [OXYCODONE] Allergy Intermediate RASH Verified 01/05/23 13:56 acetaminophen [From PERCOCET] Allergy Unknown RASH/ITCHIN Verified 01/05/23 13:56 G codeine [CODEINE] Allergy Unknown ITCHING Verified 01/05/23 13:56 hydrocodone [From VICODIN] Allergy Unknown UNKNOWN Verified 01/05/23 13:56 lisinopril [LISINOPRIL] Allergy Unknown UNKNOWN Verified 01/05/23 13:56 metoclopramide [From REGLAN] Allergy Unknown UNKNOWN Verified 01/05/23 13:56 naproxen [Naprosyn] Allergy Unknown Unknown Verified 01/05/23 13:56 tramadol Allergy Unknown Unknown Verified 01/05/23 13:56 Codeine Sulfate Allergy Unknown Unknown Uncoded 01/05/23 13:56 Percocet Allergy Unknown Unknown Uncoded 01/05/23 13:56 Vicodin Allergy Unknown Unknown Uncoded 01/05/23 13:56 Review of Systems Review of Systems: Yes all other systems are reviewed and are negative Constitutional: Constitutional: Reports as per [facility] Past Medical History Medical History CHF (congestive heart failure) CKD (chronic kidney disease) stage 3, GFR 30-59 ml/min Diabetes type 2, uncontrolled Diabetic neuropathy associated with type 2 diabetes mellitus Dyslipidemia Hypertension Hypoglycemia unawareness associated with type 2 diabetes mellitus 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 Non-toxic multinodular goiter Vitamin D deficiency Surgical History AICD (automatic cardioverter/defibrillator) present Hx of appendectomy Hx of biopsy Hx of hysterectomy Family History Family History Father Alcoholism Diabetes Mother Arthritis Hypertension Social History Social History Alcohol intake: current Alcohol intake frequency: does not drink Patient Tobacco Use Status: Never used Tobacco Advance Directives: No Advance Directives Information Provided: No Physical Exam ED Vital Signs: Vital Signs - 24 hr 05/27/23 14:11 Temperature 96.5 F L Pulse Rate 83 Respiratory Rate 17 Blood Pressure 113/66 Pulse Oximetry 97 Oxygen Delivery Method Room Air BMI result Body Mass Index 30.7 Const General: cooperative, comfortable and no acute distress Orientation/consciousness: patient oriented x3 Limitations: no limitations HENMT Other: Oral pharynx is mildly erythematous, no tonsillar exudates or hypertrophy. Uvula midline. Speaking in full sentences. Head: Yes normal to inspection, Yes normocephalic and Yes atraumatic Ears: hearing grossly normal bilaterally General nose exam: Normal external nose present Face and sinus: Yes normal facial exam Throat: Yes posterior oropharynx normal Eyes General: appearance normal, both eyes and all related structures Eyelids: Yes eyelids normal Conjunctivae: conjunctivae normal Sclerae: sclerae normal Pupils: Equal, round and reactive pupils present EOM: EOMs intact bilaterally Neck Neck: Yes normal visual inspection, Yes full ROM and Yes no lymphadenopathy Lymphatic: no lymphadenopathy noted Chest Chest palpation & inspection: normal inspection of the chest Resp Effort & Inspection: normal respiratory effort and able to speak in complete sentences Auscultation: clear to auscultation bilaterally, no crackles, no rales, no rhonchi and no wheezes Cardio Rate: regular rate Rhythm: regular rhythm Heart sounds: S1 normal heart sound present and S2 normal heart sound present GI Inspection: Yes normal to inspection Skin General skin exam: no rashes or lesions noted Trauma: no lacerations or abrasions Wounds: no wounds Neuro General: patient oriented x3 and moves all extremities Cranial nerves: Yes Equal, round and reactive pupils present Extrem General: Yes normal to inspection and Yes no pedal edema Right upper extremity: normal to inspection Left upper extremity: normal to inspection Right lower extremity: normal to inspection Left lower extremity: normal to inspection Course Course Course Narrative: RME: 68 yold female presents to the ED for coughing with green phlegh, fever, and sore throat. chest xray, covid, influenxa, and strep ordered Medical Decision Making Medical Decision Making MDM Narrative: This is a 68-year-old [place]-speaking female, with a past medical history of CHF, CKD stage 3, diabetes, hyperlipidemia, hypertension, presenting to the emergency department with complaints of productive cough with green-colored sputum, and sore throat x8 days. DDX pneumonia, URI, viral syndrome, CHF exacerbation - less likely. On arrival, vital signs within normal limits. Viral swabs were obtained and negative. CXR unremarkable. Pt well appearing in no acute distress. Reporting worsening symptoms since its onset. Given significant medical hx, will treat with course of abx and tessalon. Given return precautions. She understands and agrees with plan. Stable for d/c, Differential Diagnosis Differential Diagnoses: The differential diagnosis associated with the presentation includes See above Admission/Observation Consideration of admission/observation: Escalation of care including admission/observation considered Patient would have been admitted to the hospital had her work up had any findings where hospital admission was appropriate and her clinical presentation warranted hospital admission. Lab Data MDM Lab Attestation statement: I reviewed the patient's lab results. Negative Labs: Lab Results 05/27/23 Range/Units 14:35 COVID-19 ([facility]) Negative (Negative) COVID-19 Clin Com See Note Influenza Type A ([facility]) Negative (Negative) Influenza Type B ([facility]) Negative (Negative) Influenza A & B Note See Note S. pyogenes GrpA [facility] Negative (Negative) Radiology Impression Discussion of test interpretation with radiology: I have reviewed the radiologist's reading. Radiologist Impression: EXAMINATION: XR CHEST CLINICAL INFORMATION: Pneumonia COMPARISON: Previous chest x-ray January 2023 TECHNIQUE: Frontal view of the chest was obtained. FINDINGS: The cardiac and mediastinal contours are stable. Left subclavian single chamber pacemaker/ AICD device appears unchanged. The lungs are clear without evidence of pneumonia. No pleural effusion or pneumothorax. Bony structures are unremarkable. XR/XR chest 1V IMPRESSION: No evidence of pneumonia. Dictated By: Armida Irizarry MD Chronic Conditions Patient?s care impacted by: Diabetes, Hypertension and Other (CHF ) Discharge Plan Discharge Clinical Impression: Acute upper respiratory infection Patient Disposition: Home, Self-Care Instructions: Upper Respiratory Infection (ED) Additional Instructions: Your x-ray did not show a pneumonia. You tested negative for strep, flu, and COVID. Your symptoms are likely due to a virus however given your medical problems, I am prescribing you an antibiotic. Please take the entire course even if your symptoms improve. I am also prescribing a medication to help with the cough. It is important to drink plenty of fluids get plenty of rest. You may take Tylenol as needed for pain. Follow-up with your primary care physician. If any new or worsening symptoms occur including but not limited to chest pain, shortness of breath, please return for re-evaluation. Grady radiograf?a no mostr? neumon?a. Kwabena negativo en pruebas de estreptococo, gripe y COVID. Es probable que rigoberto s?ntomas se deban a un virus; sin embargo, dados rigoberto problemas m?dicos, le recetar? un antibi?thais. Realice el curso completo incluso si rigoberto s?ntomas mejoran. Tambi?n le estoy recetando un medicamento para ayudar con la tos. Es importante beber muchos l?quidos y descansar lo suficiente. Puede key Tylenol seg?n sea necesario para el dolor. Seguimiento con grady m?dico de atenci?n primaria. Si se presenta alg?n s?ntoma nuevo o que empeora, incluidos, entre otros, dolor en el pecho y dificultad para respirar, regrese para phoebe nueva evaluaci?n. Prescriptions: New benzonatate 100 mg capsule 200 mg PO TID PRN (Reason: cough) Qty: 20 0RF doxycycline hyclate 100 mg tablet 100 mg PO BID 7 Days Qty: 14 0RF No Action (DME) lancing device [Adjustable Lancing Device] Misc See Rx Instructions .ROUTE .MEDSUPPLY Qty: 1 0RF Rx Instructions: 3 times a day (DME) lancets 28 gauge misc See Rx Instructions topical .MEDSUPPLY Qty: 200 3RF Rx Instructions: To test blood glucose 2 times a day Lantus Solostar U-100 Insulin 100 unit/mL (3 mL) insulin pen 10 unit subcut DAILY 30 Days Qty: 3 6RF (DME) pen needle, diabetic [BD Radha 2nd Gen Pen Needle] 32 gauge x 5/32 needle See Rx Instructions .ROUTE .MEDSUPPLY Qty: 50 6RF Rx Instructions: once a day Jardiance 25 mg tablet 25 mg PO DAILY 30 Days Qty: 30 6RF FreeStyle Lite Strips Strip 1 strip miscellaneous BID 90 Days Qty: 200 1RF Tradjenta 5 mg tablet 5 mg PO DAILY Qty: 30 6RF atorvastatin 40 mg tablet 40 mg PO DAILY Qty: 90 0RF albuterol sulfate [ProAir HFA] 90 mcg/actuation HFA aerosol inhaler 2 puff inhalation Q4-6H PRN (Reason: shortness of breath or wheezing) Qty: 8.5 0RF benzonatate 100 mg capsule 200 mg PO TID PRN (Reason: cough) Qty: 20 0RF prednisone 20 mg tablet 20 mg PO DAILY 7 Days Qty: 7 0RF benzonatate 200 mg capsule 200 mg PO TID PRN (Reason: cough) Qty: 20 0RF colchicine (gout) 0.6 mg tablet 0.6 mg PO DAILY Qty: 7 0RF alcohol swabs Pads, Medicated topical methocarbamol 750 mg tablet 750 mg PO BID zolpidem 5 mg tablet 5 mg PO BEDTIME PRN cholecalciferol (vitamin D3) 50 mcg (2,000 unit) capsule 50 mcg PO DAILY omeprazole 10 mg capsule,delayed release(DR/EC) 10 mg PO DAILY digoxin 125 mcg (0.125 mg) tablet 62.5 mcg PO 3XW loratadine 10 mg tablet 10 mg PO DAILY carvedilol 25 mg tablet 25 mg PO BID aspirin 81 mg tablet,delayed release (DR/EC) 81 mg PO DAILY gabapentin 600 mg tablet 600 mg PO TID allopurinol 100 mg tablet 400 mg PO DAILY Entresto 49-51 mg tablet 1 tab PO BID furosemide 40 mg tablet 40 mg PO DAILY ferrous sulfate 325 mg (65 mg iron) tablet 325 mg PO BID triamcinolone acetonide 0.5 % cream topical diclofenac sodium 1 % gel 1 ea topical QID fluticasone propionate 50 mcg/actuation spray,suspension 0 mcg intranasal DAILY PRN (Reason: allergies) Eliquis 5 mg tablet 5 mg PO BID famotidine 40 mg tablet 40 mg PO DAILY Interventions: ED Discharge Assessment Last Done: 05/27/23 19:03 Discharge Date/Time: 05/27/23 19:04
[2023-05-27 15:17] LABS: COVID-19 Test Negative (Negative); IDNOW Serial# BCCEAD1C
[2023-05-27 15:19] LABS: IDNOW Serial# 9DB6401D; Influenza A Negative (Negative); Influenza B2 Negative (Negative)
[2023-05-27 15:26] LABS: IDNOW Serial# 6674DD1D; Strep A Nucleic Acid Negative (Negative)
== END 2023-05-27 19:04 | disposition home or self-care (01) ==
PROVIDERS: Physician Assistant; Emergency Provider Emergency Medicine; PCP Physician Assistant
DX: J06.9 Acute upper respiratory infection, unspecified (principal); J02.9 Acute pharyngitis, unspecified; Z11.52 Encounter for screening for COVID-19; E11.22 Type 2 diabetes mellitus with diabetic chronic kidney disease; I13.0 Hypertensive heart and chronic kidney disease with heart failure and stage 1 through stage 4 chronic kidney disease, or unspecified chronic kidney disease; N18.30 Chronic kidney disease, stage 3 unspecified; I50.9 Heart failure, unspecified; Z79.899 Other long term (current) drug therapy; Z79.01 Long term (current) use of anticoagulants; Z79.4 Long term (current) use of insulin
CPT/HCPCS: 71045; 87502; 87635; 87651; 99282; 99284

== ENCOUNTER 2023-06-11 12:30 | Outpatient (REF) | payer OTHER, SELFPAY ==
[2023-06-11 14:07] LABS: Alanine Aminotransferase 7 U/L (0-31); Albumin Level 3.7 g/dL (3.5-5.0); Alkaline Phosphatase 73 U/L (39-117); Anion Gap 11 (12-20); Aspartate Amino Transferase 12 U/L (5-31); Bilirubin Total 0.3 mg/dL (0.0-1.0); Blood Urea Nitrogen 17 mg/dL (9-16); Calcium 9.2 mg/dL (8.4-10.2); Carbon Dioxide 32 mmol/L (22-29); Chloride 100 mmol/L (96-108); Estimated Glomerular Filt Rate 37; Glucose Random 173 mg/dL (60-115); Potassium 3.4 mmol/L (3.3-5.1); Sodium 140 mmol/L (135-145); Total Protein 7.2 g/dL (6.5-8.0)
[2023-06-11 14:23] LABS: Free T4 (Free Thyroxine) 0.88 ng/dL (0.71-1.85); Thyroid Stimulating Hormone 2.45 uIU/mL (0.32-4.0)
[2023-06-15 10:29] LABS: Calcium (PTHI) 9.1 mg/dL (8.6-10.4); PTHI 33 pg/mL (16-77)
[2023-06-15 14:19] LABS: Vitamin D 25-OH, D2 <4 ng/mL; Vitamin D 25-OH, D3 43 ng/mL; Vitamin D 25-OH, Total 43 ng/mL (30-100)
== END 2023-06-11 12:31 | disposition home or self-care (01) ==
LOC: HO.LAB 12:30
PROVIDERS: PCP Physician Assistant; Visit Provider Internal Medicine
DX: E04.2 Nontoxic multinodular goiter (principal); E55.9 Vitamin D deficiency, unspecified
CPT/HCPCS: 36415; 80053; 82306; 83970; 84439; 84443

== ENCOUNTER 2023-06-16 14:17 | Outpatient (AMB) | payer OTHER, SELFPAY ==
[2023-06-16 14:52] VITALS: BP 90/52; PULSE 86; BMI 27.3
--- NOTE | 2023-06-16 14:52 | MHC.OFFVIS ---
Intake Vital Signs 06/16/23 14:52 Height 4 ft 8 in Weight 121 lb 11.123 oz BMI 27.3 BP 90/52 L Blood Pressure Location Lt brachial Position Sitting Pulse 86 Pulse Source Pulse Oximeter Intake Visit Reasons: F/U NTMNG-CONFIRMED Intake Note: Patient present for NTMNG follow up visit. Previously followed by Dr. Burt. 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 Trainer Language: Return Checker Name: Nan medical staff Information Interpreted: non-clinical & clinical Accompanied by: Self / Same As Patient Allergies egg [EGG] Allergy (Intermediate, Verified 01/05/23 13:56) RASH Fish Containing Products Allergy (Intermediate, Verified 01/05/23 13:56) RASH oxycodone [OXYCODONE] Allergy (Intermediate, Verified 01/05/23 13:56) RASH acetaminophen [From PERCOCET] Allergy (Unknown, Verified 01/05/23 13:56) RASH/ITCHING codeine [CODEINE] Allergy (Unknown, Verified 01/05/23 13:56) ITCHING hydrocodone [From VICODIN] Allergy (Unknown, Verified 01/05/23 13:56) UNKNOWN lisinopril [LISINOPRIL] Allergy (Unknown, Verified 01/05/23 13:56) UNKNOWN metoclopramide [From REGLAN] Allergy (Unknown, Verified 01/05/23 13:56) UNKNOWN naproxen [Naprosyn] Allergy (Unknown, Verified 01/05/23 13:56) Unknown tramadol Allergy (Unknown, Verified 01/05/23 13:56) Unknown Codeine Sulfate Allergy (Unknown, Uncoded 01/05/23 13:56) Unknown Percocet Allergy (Unknown, Uncoded 01/05/23 13:56) Unknown Vicodin Allergy (Unknown, Uncoded 01/05/23 13:56) Unknown Medication List - Last Reconciled 06/16/23 by Omer Abbott MD albuterol sulfate 90 mcg/actuation (ProAir HFA) 2 puffs inhalation Q4-6H PRN alcohol swabs pad topical allopurinol 400 mg PO DAILY apixaban (Eliquis) 5 mg PO BID aspirin 81 mg PO DAILY atorvastatin 40 mg PO DAILY benzonatate 200 mg (2 x 100 mg) PO TID PRN benzonatate 200 mg PO TID PRN benzonatate 200 mg (2 x 100 mg) PO TID PRN blood sugar diagnostic (FreeStyle Lite Strips) 1 strip miscellaneous BID 90 days carvedilol 25 mg PO BID cholecalciferol (vitamin D3) 50 mcg PO DAILY colchicine (gout) 0.6 mg PO DAILY diclofenac sodium 1% 1 ea topical QID digoxin 62.5 mcg PO 3XW doxycycline hyclate 100 mg PO BID 7 days famotidine 40 mg PO DAILY ferrous sulfate 325 mg PO BID fluticasone propionate 50 mcg/actuation 0 mcg intranasal DAILY PRN furosemide 40 mg PO DAILY gabapentin 600 mg PO TID insulin glargine (Lantus Solostar U-100 Insulin) 10 units (0.1 mL) subcut DAILY 30 days lancets To test blood glucose 2 times a day lancing device (Adjustable Lancing Device) 3 times a day linagliptin (Tradjenta) 5 mg PO DAILY loratadine 10 mg PO DAILY methocarbamol 750 mg PO BID omeprazole 10 mg PO DAILY pen needle, diabetic (BD Radha 2nd Gen Pen Needle) once a day prednisone 20 mg PO DAILY 7 days sacubitril-valsartan 49-51 mg 1 tab PO BID triamcinolone acetonide 0.5% appl topical zolpidem 5 mg PO BEDTIME PRN HPI HPI Comments History of Present Illness Details 68 YO Female with a PMHx of a NTMNG who is seen in F/U. She was previously followed by Dr. Amos. She has refused to follow with us for her T2DM and is now following with her PCP. She last saw Dr. Burt on 01/05/2023 She has a longstanding history of a multinodular thyroid and has undergone multiple FNA biopsies in the past as detailed below: 12/10/2017: RMP 1.6 cm - Benign cytology RLP 1.2 cm - Benign cytology 01/20/2019: RMP 1.8 cm - Atypia of Undetermined Significance (bethesda category III), Affirma Benign 05/24/2020: RMP 2.4 cm - Benign cytology She then had a repeat US 06/20/2021 which revealed growth of her RMP and RLP nodules. She was scheduled for FNA biopsy and underwent this with IR on 01/06/2022 with her RMP 1.2 cm thyroid nodule benign (bethesda category II) and her RLP 1.6 cm thyroid nodule nondiagnostic. She then represented for an FNA biopsy with al 04/09/2022 with identification of a new RMP 1.2 cm hypoechoic nodule with irregular borders. FNA was recommended of this nodule, but the patient refused, and instead requested a R hemithyroidectomy. She underwent her right hemithyroidectomy 11/10/2022 with official surgical path benign, revealing NIFT-P. She is seen today in F/U. She has denied any compressive symptoms. She denies any symptoms of hyper or hypothyroidism. She denies any personal history of radiation to the head or the neck. She denies any family history of thyroid cancer. US Thyroid: 06/20/2021 Right Thyroid Lobe: 5.5 x 1.8 x 1.9 cm, volume 9.8 mL. Previously 5.3 x 2.3 x 1.7 cm, volume 10.8 mL. Parenchyma: The gland echotexture is heterogeneous. Thyroid vascularity is normal. Left Thyroid Lobe: 4.9 x 1.1 x 1.8 cm, volume 5.1 mL. Previously 4.1 x 1.5 x 1.7 cm, volume 5.5 mL. Parenchyma: The gland echotexture is homogeneous. Thyroid vascularity is normal. Isthmus: 0.3 cm in maximum AP dimension. Previously 0.5 cm. There are multiple nodules. Largest nodules are measured. Estimated total number of nodules greater than or equal to 1 cm: 3. Radiology Special Procedure Tech nodules are described as follows: 1.? Location: Right mid. ?? ? Size: 1.9 x 0.96 x 1.6 cm, volume 1.6 mL. ?? ? Previously: 1.4 x 0.9 x 1.3 cm, volume 1.2 mL. ?? ? Nodule characteristics: ?? ? Composition: Mixed cystic and solid (1). ?? ? Echogenicity: Anechoic (0). ?? ? Shape: Not taller than wide (0). ?? ? Margins: Lobulated (2). ?? ? Echogenic Foci: None (0). ? ACR TI-RADS total points: 3 ?? ? ACR TI-RADS category: 3 ? Significant change in size (>/= 20% in 2 dimensions and minimal increase of 2 mm or 50% or greater increase in volume): ?? ? Change in features: ?? ? Change in ACR TI-RADS risk category: 2.? Location: Right mid. ?? ? Size: 1.1 x 0.8 x 1.3 cm, volume 0.6 mL. ?? ? Previously: 2.4 x 1.2 x 2.4 cm, volume 3.61 mL. ?? ? Nodule characteristics: ?? ? Composition: Solid (2). ?? ? Echogenicity: Hyperechoic (1). ?? ? Shape: Not taller than wide (0). ?? ? Margins: Smooth (0). ?? ? Echogenic Foci: None (0).? ACR TI-RADS total points: 3 ?? ? ACR TI-RADS category: 3 ? Significant change in size (>/= 20% in 2 dimensions and minimal increase of 2 mm or 50% or greater increase in volume): ?? ? Change in features: ?? ? Change in ACR TI-RADS risk category: 3.? Location: Right superior. ?? ? Size: 1.3 x 1.3 x 1.2 cm, volume 1.06 mL. ?? ? Previously: 1.7 x 1.4 x 1.4 cm, volume 1.7 mL. ?? ? Nodule characteristics: ?? ? Composition: Solid (2). ?? ? Echogenicity: Isoechoic (1). ?? ? Shape: Not taller than wide (0). ?? ? Margins: Ill-defined (0). ?? ? Echogenic Foci: None (0). ? ACR TI-RADS total points: 3 ?? ? ACR TI-RADS category: 3 ? Significant change in size (>/= 20% in 2 dimensions and minimal increase of 2 mm or 50% or greater increase in volume): ?? ? Change in features: ?? ? Change in ACR TI-RADS risk category: 4.? Location: Left mid. ?? ? Size: 0.4 x 0.3 x 0.4 cm, volume 0.03 mL. ?? ? Previously: 0.7 x 0.4 x 0.5 cm, volume 0.07 mL. ?? ? Nodule characteristics: ?? ? Composition: Cystic(0). ?? ? ACR TI-RADS total points: 0 ?? ? ACR TI-RADS category: 1 ? Significant change in size (>/= 20% in 2 dimensions and minimal increase of 2 mm or 50% or greater increase in volume): ?? ? Change in features: ?? ? Change in ACR TI-RADS risk category: 5.? Location: Left inferior. ?? ? Size: 0.4 x 0.3 x 0.4 cm, volume 0.04 mL. ?? ? Previously: 0.4 x 0.2 x 0.4 cm, volume 0.01 mL. ?? ? Nodule characteristics: ?? ? Composition: Mixed cystic and solid (1). ?? ? Echogenicity: Isoechoic (1). ?? ? Shape: Not taller than wide (0). ?? ? Margins: Ill-defined (0). ?? ? Echogenic Foci: Punctate echogenic foci (3).? ACR TI-RADS total points: 5 ?? ? ACR TI-RADS category: 4 ? Significant change in size (>/= 20% in 2 dimensions and minimal increase of 2 mm or 50% or greater increase in volume): ?? ? Change in features: ?? ? Change in ACR TI-RADS risk category: NODES: No lymphadenopathy is seen in the tissue surrounding the thyroid gland. There are small left cervical lymph nodes. These are normal in size and demonstrate normal ultrasound morphology and flow. 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 Left lobe was out the presence of any nodules palpable Assessment & Plan Assessment & Plan (1) Non-toxic multinodular goiter: Code(s): E04.2 - Nontoxic multinodular goiter Plan: This 68-year-old female with a history of multinodular goiter status post right lobectomy. Recent thyroid ultrasound shows subcentimeter nodules with 1 nodule nonsuspicious in the mid left pole that is new. She is clinically biochemically euthyroid. Plan is to talk to the patient about different options including FNA of left midpole nodule versus observation versus completion thyroidectomy. After a discussion of these options, patient is opting for observation and will ultrasound in 1 year's time Coding Level of Care Code Est Pt Level 3 (73224) Diagnoses Non-toxic multinodular goiter E04.2
== END 2023-06-16 15:23 | disposition home or self-care (01) ==
PROVIDERS: Visit Provider Internal Medicine Endocrinology, Diabetes & Metabolism
DX: E04.2 Nontoxic multinodular goiter (principal)
CPT/HCPCS: 99213

== ENCOUNTER → 2023-06-16 14:17 | Outpatient (BNVA) | payer OTHER, SELFPAY | PROVIDERS: Visit Provider Internal Medicine Endocrinology, Diabetes & Metabolism | DX: E04.2 Nontoxic multinodular goiter (principal) | CPT/HCPCS: 99212 ==

== ENCOUNTER 2023-09-09 08:40 | Emergency (ER) | payer OTHER, SELFPAY ==
[2023-09-09 08:50] VITALS: BP 124/77; BP 136/70; PULSE 93; PULSE 96; RESP 16; TEMP 36.7; O2SAT 98; BMI 24.2
--- NOTE | 2023-09-09 09:10 | ED.EXTPRO ---
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 States she gets this a lot and tries to manage it at home but this time it is too painful MD Complaint: extremity pain Onset (ago): day(s) (few) Pain Consistency: constant Location: right and lower extremity Quality: aching and constant Radiation: none Relieving factors: rest Exacerbating factors: weight bearing, walking and palpation Associated symptoms: other (redness near first toe) Context: history of gout Related Data Home Medications Medication Instructions Recorded Confirmed alcohol swabs pad topical 06/04/20 01/05/23 allopurinol 100 mg tablet 400 mg PO DAILY 06/04/20 01/05/23 aspirin 81 mg tablet,delayed 81 mg PO DAILY 06/04/20 01/05/23 release carvedilol 25 mg tablet 25 mg PO BID 06/04/20 01/05/23 cholecalciferol (vitamin D3) 50 50 mcg PO DAILY 06/04/20 01/05/23 mcg (2,000 unit) capsule digoxin 125 mcg (0.125 mg) tablet 62.5 mcg PO 3XW 06/04/20 01/05/23 gabapentin 600 mg tablet 600 mg PO TID 06/04/20 01/05/23 loratadine 10 mg tablet 10 mg PO DAILY 06/04/20 01/05/23 methocarbamol 750 mg tablet 750 mg PO BID 06/04/20 01/05/23 omeprazole 10 mg capsule,delayed 10 mg PO DAILY 06/04/20 01/05/23 release sacubitril 49 mg-valsartan 51 mg 1 tab PO BID 06/04/20 01/05/23 tablet zolpidem 5 mg tablet 5 mg PO BEDTIME PRN 06/04/20 01/05/23 ferrous sulfate 325 mg (65 mg 325 mg PO BID 09/24/20 01/05/23 iron) tablet furosemide 40 mg tablet 40 mg PO DAILY 09/24/20 01/05/23 famotidine 40 mg tablet 40 mg PO DAILY 07/10/21 01/05/23 apixaban 5 mg tablet (Eliquis) 5 mg PO BID 01/05/23 01/05/23 diclofenac sodium 1 % topical gel 1 ea topical QID 01/05/23 01/05/23 fluticasone propionate 50 0 mcg intranasal DAILY PRN 01/05/23 01/05/23 mcg/actuation nasal allergies spray,suspension triamcinolone acetonide 0.5 % appl topical 01/05/23 01/05/23 topical cream Previous Rx's Medication Instructions Recorded lancing device (Adjustable Lancing #1 ea 02/01/21 Device) lancets 28 gauge #200 ea 05/02/21 albuterol sulfate 90 mcg/actuation 2 puff inhalation Q4-6H PRN 07/30/21 aerosol inhaler (ProAir HFA) shortness of breath or wheezing #8.5 grams benzonatate 100 mg capsule 200 mg (2 x 100 mg) PO TID PRN 07/30/21 cough #20 caps insulin glargine 100 unit/mL (3 10 unit (0.1 mL) subcut DAILY 30 01/08/22 mL) subcutaneous pen ( #3 mL Solostar U-100 Insulin) pen needle, diabetic 32 gauge x #50 ea 01/08/22 (BD Radha 2nd Gen Pen Needle) blood sugar diagnostic (FreeStyle 1 strip miscellaneous BID 90 days 07/16/22 Lite Strips) #200 strips prednisone 20 mg tablet 20 mg PO DAILY 7 days #7 tabs 01/03/23 benzonatate 200 mg capsule 200 mg PO TID PRN cough #20 caps 01/25/23 colchicine 0.6 mg tablet 0.6 mg PO DAILY #7 tabs 01/25/23 linagliptin 5 mg tablet (Tradjenta) 5 mg PO DAILY #30 tabs 05/06/23 benzonatate 100 mg capsule 200 mg (2 x 100 mg) PO TID PRN 05/27/23 cough #20 caps doxycycline hyclate 100 mg tablet 100 mg PO BID 7 days #14 tabs 05/27/23 atorvastatin 40 mg tablet 40 mg PO DAILY #90 tabs 08/21/23 morphine 15 mg immediate release 15 mg PO TID PRN pain #12 tabs 09/09/23 tablet ondansetron 4 mg disintegrating 4 mg PO Q8H PRN nausea and 09/09/23 tablet vomiting #20 tabs prednisone 20 mg tablet 40 mg (2 x 20 mg) PO DAILY 4 days 09/09/23 #8 tabs Allergies Allergy/AdvReac Type Severity Reaction Status Date / Time egg [EGG] Allergy Intermediate RASH Verified 01/05/23 13:56 Fish Containing Products Allergy Intermediate RASH Verified 01/05/23 13:56 oxycodone [OXYCODONE] Allergy Intermediate RASH Verified 01/05/23 13:56 acetaminophen [From PERCOCET] Allergy Unknown RASH/ITCHIN Verified 01/05/23 13:56 G codeine [CODEINE] Allergy Unknown ITCHING Verified 01/05/23 13:56 hydrocodone [From VICODIN] Allergy Unknown UNKNOWN Verified 01/05/23 13:56 lisinopril [LISINOPRIL] Allergy Unknown UNKNOWN Verified 01/05/23 13:56 metoclopramide [From REGLAN] Allergy Unknown UNKNOWN Verified 01/05/23 13:56 naproxen [Naprosyn] Allergy Unknown Unknown Verified 01/05/23 13:56 tramadol Allergy Unknown Unknown Verified 01/05/23 13:56 Codeine Sulfate Allergy Unknown Unknown Uncoded 01/05/23 13:56 Percocet Allergy Unknown Unknown Uncoded 01/05/23 13:56 Vicodin Allergy Unknown Unknown Uncoded 01/05/23 13:56 Review of Systems Review of Systems: Constitutional : No Fever, No Chills ENT/Mouth : No Ear Pain, No Hoarseness, No sore throat Eyes: No Eye Pain, No Swelling, No Redness, No Foreign Body Cardiovascular : No Chest Pain, No SOB Respiratory : No Cough, No Dyspnea Gastrointestinal : No Nausea, No Vomiting, No Diarrhea, No abdominal Pain Genitourinary : No Dysuria, No Hematuria Musculoskeletal : positive joint pain, No Myalgias, pos Joint Swelling Skin : No Skin lacerations, No rash Neuro : No Weakness, No Numbness, No Loss of Consciousness, No Dizziness, No Headache All other systems reviewed and are negative PMFSH Past Medical History Attestation statement: The following information was validated with the patient. Source: old records reviewed Medical History CHF (congestive heart failure) Hypoglycemia unawareness associated with type 2 diabetes mellitus Vitamin D deficiency Diabetic neuropathy associated with type 2 diabetes mellitus CKD (chronic kidney disease) stage 3, GFR 30-59 ml/min Hypertension Dyslipidemia senior care (current) use of insulin Non-toxic multinodular goiter Diabetes type 2, uncontrolled Surgical History Hx of biopsy AICD (automatic cardioverter/defibrillator) present Hx of appendectomy Hx of hysterectomy Family History Family History Father Alcoholism Diabetes Mother Arthritis Hypertension Social History Social History Alcohol intake: current Alcohol intake frequency: does not drink Patient Tobacco Use Status: Never used Tobacco Advance Directives: No Advance Directives Information Provided: Yes Physical Exam Vital Signs: Vital Signs: Last Vital Signs Temp 98.0 F 09/09/23 08:50 Pulse 93 09/09/23 08:50 Resp 16 09/09/23 08:50 BP 124/77 09/09/23 08:50 Pulse Ox 98 09/09/23 08:50 O2 Del Method Room Air 09/09/23 08:50 BMI result Body Mass Index 24.2 Appearance: Alert. Oriented X3. No acute distress. Eyes: Pupils equal, round and reactive to light. ENT: Pharynx normal. Neck: Normal inspection. Neck supple. CVS: Normal heart rate and rhythm. Pulses normal. Respiratory: No respiratory distress. Breath sounds normal. Abdomen: Soft and nontender. Skin: Skin warm and dry. Normal skin color. Normal skin turgor. Extremities: R 1st MTP redness and mild swelling - distal NV intact 2+ DP pulses. no signs of cellulitis Neuro: Oriented X 3. No motor deficit. No sensory deficit. Medical Decision Making Medical Decision Making MDM Narrative: 68 yo female with CHF and AICD, CKD, diabetes, HTN, HLD here with 1st MTP joint redness and swelling ttp no signs of cellulitis NV intact at this time will treat with steroids and morphine - no trauma no signs of infection. Has done okay with prednisone and will monitor her sugars Differential Diagnosis Differential Diagnoses: The differential diagnosis associated with the presentation includes gout Independent Historian Clinical information obtained from an independent historian. History obtained from or confirmed by: EMS External Record Review External record reviewed: Inpatient record Prescription Management I considered prescription management with: Pain Medication and Other Discharge Plan Discharge Clinical Impression: Gout Qualifiers: Gout site: toe Gout etiology: unspecified cause Chronicity: acute Laterality: right Qualified Code(s): M10.9 - Gout, unspecified Patient Disposition: Home, Self-Care Instructions: Gout (ED) Additional Instructions: monitor your blood sugars. return for worsening pain, redness, fevers, or any other concerns. prednisone may make your sugars go up please monitor carefully controle rigoberto niveles de az?car en la michele. Regrese si el dolor empeora, enrojecimiento, fiebre o cualquier otra inquietud. La prednisona puede hacer que castanon nivel de az?car aumente, por favor controle cuidadosamente. Prescriptions: New prednisone 20 mg tablet 40 mg PO DAILY 4 Days Qty: 8 0RF morphine 15 mg tablet 15 mg PO TID PRN (Reason: pain) Qty: 12 0RF Rx Instructions: partial fill okay; Partial Fill upon patient request. ondansetron 4 mg tablet,disintegrating 4 mg PO Q8H PRN (Reason: nausea and vomiting) Qty: 20 0RF No Action (DME) lancing device [Adjustable Lancing Device] Misc See Rx Instructions .ROUTE .MEDSUPPLY Qty: 1 0RF Rx Instructions: 3 times a day (DME) lancets 28 gauge misc See Rx Instructions topical .MEDSUPPLY Qty: 200 3RF Rx Instructions: To test blood glucose 2 times a day Lantus Solostar U-100 Insulin 100 unit/mL (3 mL) insulin pen 10 unit subcut DAILY 30 Days Qty: 3 6RF (DME) pen needle, diabetic [BD Radha 2nd Gen Pen Needle] 32 gauge x 5/32 needle See Rx Instructions .ROUTE .MEDSUPPLY Qty: 50 6RF Rx Instructions: once a day FreeStyle Lite Strips Strip 1 strip miscellaneous BID 90 Days Qty: 200 1RF Tradjenta 5 mg tablet 5 mg PO DAILY Qty: 30 6RF atorvastatin 40 mg tablet 40 mg PO DAILY Qty: 90 0RF albuterol sulfate [ProAir HFA] 90 mcg/actuation HFA aerosol inhaler 2 puff inhalation Q4-6H PRN (Reason: shortness of breath or wheezing) Qty: 8.5 0RF benzonatate 100 mg capsule 200 mg PO TID PRN (Reason: cough) Qty: 20 0RF benzonatate 100 mg capsule 200 mg PO TID PRN (Reason: cough) Qty: 20 0RF doxycycline hyclate 100 mg tablet 100 mg PO BID 7 Days Qty: 14 0RF prednisone 20 mg tablet 20 mg PO DAILY 7 Days Qty: 7 0RF benzonatate 200 mg capsule 200 mg PO TID PRN (Reason: cough) Qty: 20 0RF colchicine 0.6 mg tablet 0.6 mg PO DAILY Qty: 7 0RF alcohol swabs Pads, Medicated topical methocarbamol 750 mg tablet 750 mg PO BID zolpidem 5 mg tablet 5 mg PO BEDTIME PRN cholecalciferol (vitamin D3) 50 mcg (2,000 unit) capsule 50 mcg PO DAILY omeprazole 10 mg capsule,delayed release(DR/EC) 10 mg PO DAILY digoxin 125 mcg (0.125 mg) tablet 62.5 mcg PO 3XW loratadine 10 mg tablet 10 mg PO DAILY carvedilol 25 mg tablet 25 mg PO BID aspirin 81 mg tablet,delayed release (DR/EC) 81 mg PO DAILY gabapentin 600 mg tablet 600 mg PO TID allopurinol 100 mg tablet 400 mg PO DAILY Entresto 49-51 mg tablet 1 tab PO BID furosemide 40 mg tablet 40 mg PO DAILY ferrous sulfate 325 mg (65 mg iron) tablet 325 mg PO BID triamcinolone acetonide 0.5 % cream topical diclofenac sodium 1 % gel 1 ea topical QID fluticasone propionate 50 mcg/actuation spray,suspension 0 mcg intranasal DAILY PRN (Reason: allergies) Eliquis 5 mg tablet 5 mg PO BID famotidine 40 mg tablet 40 mg PO DAILY Print Language: Turkish
[2023-09-09] MEDS: predniSONE 20 MG TABLET 40 MG PO (09:24)
[2023-09-09] MEDS: Morphine Sulfate Immed Release 15 MG TABLET PO (09:24)
[2023-09-09] MEDS: Ondansetron ODT 4 MG TAB.RAPDIS TRANSLINGU (09:24)
[2023-09-09 09:25] VITALS: BP 121/71; PULSE 90; RESP 16; O2SAT 95
== END 2023-09-09 09:49 | disposition home or self-care (01) ==
PROVIDERS: Emergency Provider Emergency Medicine; PCP Physician Assistant
DX: M10.9 Gout, unspecified (principal); M79.671 Pain in right foot
CPT/HCPCS: 99283

== ENCOUNTER 2023-09-14 11:49 | Emergency (ER) | payer OTHER, SELFPAY ==
--- NOTE | ~2023-09-14 | XR_ITS ---
EXAMINATION: XR FOOT, RIGHT CLINICAL INFORMATION: Right great toe pain. COMPARISON: Right foot radiographs dated 02/05/2022. TECHNIQUE: AP, lateral, and oblique views of the right foot. FINDINGS: No acute fracture or dislocation. No joint space narrowing or marginal osteophytes. No osseous erosion. Small plantar and dorsal calcaneal spurs. XR/XR foot RT min 3V IMPRESSION: Small plantar and dorsal calcaneal spurs.
[2023-09-14 12:00] VITALS: BP 98/49; PULSE 74; RESP 16; TEMP 36.8; O2SAT 96; BMI 26.6
--- NOTE | 2023-09-14 12:00 | ED_ITS ---
HPI - General Adult General Chief complaint: Extremity Injury, Lower Stated complaint: R foot pain/ seen recently Time Seen by Provider: 09/14/23 16:09 Source: patient and RN notes reviewed Mode of arrival: ambulatory Limitations: no limitations History of Present Illness HPI narrative: This is a 68-year-old female, history of CHF and AICD, CKD, diabetes, HTN, HLD, notes recurrent R toe gout not on suppressive medications here with c/o R great toe pain for a x 1 week. Patient was seen here on September 09 and was treated for gout with prednisone, morphine and Zofran. She states that her Medicare will only fill the prednisone, which she took which provided her with relief. She states that her toe is no longer red however is still very painful. She has been taking Tylenol for her pain which has not provided her without any relief. Denies any injury or trauma. She has many drug allergies, and can only take morphine for pain. No other complaints or concerns at this time. MD complaint: Toe pain Onset (ago): week(s) Location: lower extremity Radiation: non-radiation Severity: moderate Pain Consistency: constant Relieving factors: none Exacerbating factors: none Associated symptoms: denies other symptoms Treatments prior to arrival: none Related Data Home Medications Medication Instructions Recorded Confirmed alcohol swabs pad topical 06/04/20 01/05/23 allopurinol 100 mg tablet 400 mg PO DAILY 06/04/20 01/05/23 aspirin 81 mg tablet,delayed 81 mg PO DAILY 06/04/20 01/05/23 release carvedilol 25 mg tablet 25 mg PO BID 06/04/20 01/05/23 cholecalciferol (vitamin D3) 50 50 mcg PO DAILY 06/04/20 01/05/23 mcg (2,000 unit) capsule digoxin 125 mcg (0.125 mg) tablet 62.5 mcg PO 3XW 06/04/20 01/05/23 gabapentin 600 mg tablet 600 mg PO TID 06/04/20 01/05/23 loratadine 10 mg tablet 10 mg PO DAILY 06/04/20 01/05/23 methocarbamol 750 mg tablet 750 mg PO BID 06/04/20 01/05/23 omeprazole 10 mg capsule,delayed 10 mg PO DAILY 06/04/20 01/05/23 release sacubitril 49 mg-valsartan 51 mg 1 tab PO BID 06/04/20 01/05/23 tablet zolpidem 5 mg tablet 5 mg PO BEDTIME PRN 06/04/20 01/05/23 ferrous sulfate 325 mg (65 mg 325 mg PO BID 09/24/20 01/05/23 iron) tablet furosemide 40 mg tablet 40 mg PO DAILY 09/24/20 01/05/23 famotidine 40 mg tablet 40 mg PO DAILY 07/10/21 01/05/23 apixaban 5 mg tablet (Eliquis) 5 mg PO BID 01/05/23 01/05/23 diclofenac sodium 1 % topical gel 1 ea topical QID 01/05/23 01/05/23 fluticasone propionate 50 0 mcg intranasal DAILY PRN 01/05/23 01/05/23 mcg/actuation nasal allergies spray,suspension triamcinolone acetonide 0.5 % appl topical 01/05/23 01/05/23 topical cream Previous Rx's Medication Instructions Recorded lancing device (Adjustable Lancing #1 ea 02/01/21 Device) lancets 28 gauge #200 ea 05/02/21 albuterol sulfate 90 mcg/actuation 2 puff inhalation Q4-6H PRN 07/30/21 aerosol inhaler (ProAir HFA) shortness of breath or wheezing #8.5 grams benzonatate 100 mg capsule 200 mg (2 x 100 mg) PO TID PRN 07/30/21 cough #20 caps insulin glargine 100 unit/mL (3 10 unit (0.1 mL) subcut DAILY 30 01/08/22 mL) subcutaneous pen ( #3 mL Solostar U-100 Insulin) pen needle, diabetic 32 gauge x #50 ea 01/08/2232 (BD Radha 2nd Gen Pen Needle) blood sugar diagnostic (FreeStyle 1 strip miscellaneous BID 90 days 07/16/22 Lite Strips) #200 strips prednisone 20 mg tablet 20 mg PO DAILY 7 days #7 tabs 01/03/23 benzonatate 200 mg capsule 200 mg PO TID PRN cough #20 caps 01/25/23 colchicine 0.6 mg tablet 0.6 mg PO DAILY #7 tabs 01/25/23 linagliptin 5 mg tablet (Tradjenta) 5 mg PO DAILY #30 tabs 05/06/23 benzonatate 100 mg capsule 200 mg (2 x 100 mg) PO TID PRN 05/27/23 cough #20 caps doxycycline hyclate 100 mg tablet 100 mg PO BID 7 days #14 tabs 05/27/23 atorvastatin 40 mg tablet 40 mg PO DAILY #90 tabs 08/21/23 morphine 15 mg immediate release 15 mg PO TID PRN pain #12 tabs 09/09/23 tablet ondansetron 4 mg disintegrating 4 mg PO Q8H PRN nausea and 09/09/23 tablet vomiting #20 tabs prednisone 20 mg tablet 40 mg (2 x 20 mg) PO DAILY 4 days 09/09/23 #8 tabs Allergies Allergy/AdvReac Type Severity Reaction Status Date / Time egg [EGG] Allergy Intermediate RASH Verified 01/05/23 13:56 Fish Containing Products Allergy Intermediate RASH Verified 01/05/23 13:56 oxycodone [OXYCODONE] Allergy Intermediate RASH Verified 01/05/23 13:56 acetaminophen [From PERCOCET] Allergy Unknown RASH/ITCHIN Verified 01/05/23 13:56 G codeine [CODEINE] Allergy Unknown ITCHING Verified 01/05/23 13:56 hydrocodone [From VICODIN] Allergy Unknown UNKNOWN Verified 01/05/23 13:56 lisinopril [LISINOPRIL] Allergy Unknown UNKNOWN Verified 01/05/23 13:56 metoclopramide [From REGLAN] Allergy Unknown UNKNOWN Verified 01/05/23 13:56 naproxen [Naprosyn] Allergy Unknown Unknown Verified 01/05/23 13:56 tramadol Allergy Unknown Unknown Verified 01/05/23 13:56 Codeine Sulfate Allergy Unknown Unknown Uncoded 01/05/23 13:56 Percocet Allergy Unknown Unknown Uncoded 01/05/23 13:56 Vicodin Allergy Unknown Unknown Uncoded 01/05/23 13:56 Review of Systems Review of Systems: Yes all other systems are reviewed and are negative Constitutional: Constitutional: Reports as per [facility] Past Medical History Attestation statement: The following information was validated with the patient. 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 Non-toxic multinodular goiter Diabetes type 2, uncontrolled Surgical History Hx of biopsy AICD (automatic cardioverter/defibrillator) present Hx of appendectomy Hx of hysterectomy Family History Family History Father Alcoholism Diabetes Mother Arthritis Hypertension Social History Social History Alcohol intake: current Alcohol intake frequency: does not drink Patient Tobacco Use Status: Never used Tobacco Advance Directives: No Advance Directives Information Provided: No Physical Exam ED Vital Signs: Vital Signs - 24 hr 09/14/23 12:00 09/14/23 16:58 Temperature 98.2 F Pulse Rate 74 76 Respiratory Rate 16 16 Blood Pressure 98/49 L 105/61 Pulse Oximetry 96 97 Oxygen Delivery Method Room Air Room Air BMI result Body Mass Index 26.6 Const General: cooperative, comfortable and no acute distress Orientation/consciousness: patient oriented x3 Limitations: no limitations HENMT Head: Yes normal to inspection, Yes normocephalic and Yes atraumatic Ears: hearing grossly normal bilaterally General nose exam: Normal external nose present Face and sinus: Yes normal facial exam Mouth: Normal oral and palatal mucosa present, oropharynx normal and moist mucous membranes Throat: Yes posterior oropharynx normal Eyes General: appearance normal, both eyes and all related structures Eyelids: Yes eyelids normal Conjunctivae: conjunctivae normal Sclerae: sclerae normal Pupils: Equal, round and reactive pupils present EOM: EOMs intact bilaterally Neck Neck: Yes normal visual inspection, Yes full ROM and Yes no lymphadenopathy Lymphatic: no lymphadenopathy noted Chest Chest palpation & inspection: normal inspection of the chest Resp Effort & Inspection: normal respiratory effort and able to speak in complete sentences Auscultation: clear to auscultation bilaterally, no crackles, no rales, no rhonchi and no wheezes Cardio Rate: regular rate Rhythm: regular rhythm Heart sounds: S1 normal heart sound present and S2 normal heart sound present GI Inspection: Yes normal to inspection Skin General skin exam: no rashes or lesions noted Trauma: no lacerations or abrasions Wounds: no wounds Neuro General: patient oriented x3 and moves all extremities Cranial nerves: Yes Equal, round and reactive pupils present Extrem Other: Right toe is tender to light palpation, no surrounding erythema or warmth. Nerve vascularly intact, DP pulse 2 +, no signs of cellulitis. Full range of motion of the foot and ankle as well as digits General: Yes normal to inspection Right upper extremity: normal to inspection Left upper extremity: normal to inspection Right lower extremity: normal to inspection Left lower extremity: normal to inspection Course Course Course Narrative: RME performed by Kia Dodd PA-C. Patient is a 68 year old assigned female at presenting to the emergency department with right great toe gout. Patient was seen on 09/09/2023 and given medication. Patient states that the pain has not improved and it is now worse. Detailed physical exam and review of systems are deferred to the upper extremity surgeon. Imaging ordered. Patient placed back in the waiting room pending room availability and results. Medical Decision Making Medical Decision Making [facility] Narrative: 68 yo female with CHF and AICD, CKD, diabetes, HTN, HLD here with 1st MTP pain after having gout. On arrival, patient mildly hypotensive at 98/49, this was repeated, blood pressure improved, however still low at 1 0 5/61. Given hypotension, I am resistant to giving her any oral morphine in the department prior to her departure. I discussed at length that this is contraindicated and will cause adverse side effects especially with a blood pressure that low. She understands agrees with plan. She has no current dizziness or lightheadedness. Patient reports that she had difficulty filling the morphine prescription at the pharmacy therefore she has been taking Tylenol. I discussed with her, she states that she has many drug allergies, can not tolerate oxycodone, hydrocodone, and is only tolerated morphine. She is unable to take NSAIDs. I discussed that I am limited on what I can prescribe her given her multiple drug allergies, and I can not override this prescription over at the pharmacy if her insurance is not covering it and I also do not recommend this given hypotension. She understands and agrees with this plan and will follow-up with her primary care physician. Stable for discharge Differential Diagnosis Differential Diagnoses: The differential diagnosis associated with the presentation includes Gout, arthritis, contusion, abrasion Radiology Impression Discussion of test interpretation with radiology: I have reviewed the radiologist's reading. Radiologist Impression: EXAMINATION: XR FOOT, RIGHT CLINICAL INFORMATION: Right great toe pain. COMPARISON: Right foot radiographs dated 02/05/2022. TECHNIQUE: AP, lateral, and oblique views of the right foot. FINDINGS: No acute fracture or dislocation. No joint space narrowing or marginal osteophytes. No osseous erosion. Small plantar and dorsal calcaneal spurs. XR/XR foot RT min 3V IMPRESSION: Small plantar and dorsal calcaneal spurs. Dictated By: Oliver Ramey MD Prescription Management I considered prescription management with: Pain Medication Social Determinants Patient?s care significantly limited by Social Determinants of Health including: Other Social Determinant of Health Discharge Plan Discharge Clinical Impression: Pain of toe Patient Disposition: Home, Self-Care Instructions: Arthralgia (ED) Additional Instructions: You were seen in the emergency department due to toe pain. Your blood pressure was too low therefore I could not give you a dose of morphine in the department today. I was limited on what I could give you for pain medication as you have many drug allergies. Continue taking Tylenol as needed for pain. Call your primary care physician tomorrow to follow-up. You have no evidence of infection therefore you do not need an antibiotic. If any new or worsening symptoms occur including but not limited to worsening pain, chest pain, shortness breast, please return for re-evaluation. Le atendieron en urgencias por dolor en el dedo del pie. Grady presi?n arterial era demasiado baja, por lo que hoy no pude darle phoebe dosis de morfina en el departamento. Estaba limitado en cuanto a lo que pod?a darle justen medicamento para el dolor, ya que usted tiene muchas alergias a medicamentos. Contin?e tomando Tylenol seg?n sea necesario para el dolor. Llame a grady m?dico de atenci?n primaria ma?refugio para realizar un seguimiento. No tiene evidencia de infecci?n, por lo tanto, no necesita antibi?ticos. Si se presenta alg?n s?ntoma nuevo o que empeora, incluidos, entre otros, empeoramiento del dolor, dolor en el pecho o falta de pecho, regrese para phoebe nueva evaluaci?n. Prescriptions: No Action (DME) lancing device [Adjustable Lancing Device] Misc See Rx Instructions .ROUTE .MEDSUPPLY Qty: 1 0RF Rx Instructions: 3 times a day (DME) lancets 28 gauge misc See Rx Instructions topical .MEDSUPPLY Qty: 200 3RF Rx Instructions: To test blood glucose 2 times a day Lantus Solostar U-100 Insulin 100 unit/mL (3 mL) insulin pen 10 unit subcut DAILY 30 Days Qty: 3 6RF (DME) pen needle, diabetic [BD Radha 2nd Gen Pen Needle] 32 gauge x 5/32 needle See Rx Instructions .ROUTE .MEDSUPPLY Qty: 50 6RF Rx Instructions: once a day FreeStyle Lite Strips Strip 1 strip miscellaneous BID 90 Days Qty: 200 1RF Tradjenta 5 mg tablet 5 mg PO DAILY Qty: 30 6RF atorvastatin 40 mg tablet 40 mg PO DAILY Qty: 90 0RF albuterol sulfate [ProAir HFA] 90 mcg/actuation HFA aerosol inhaler 2 puff inhalation Q4-6H PRN (Reason: shortness of breath or wheezing) Qty: 8.5 0RF benzonatate 100 mg capsule 200 mg PO TID PRN (Reason: cough) Qty: 20 0RF benzonatate 100 mg capsule 200 mg PO TID PRN (Reason: cough) Qty: 20 0RF doxycycline hyclate 100 mg tablet 100 mg PO BID 7 Days Qty: 14 0RF prednisone 20 mg tablet 20 mg PO DAILY 7 Days Qty: 7 0RF benzonatate 200 mg capsule 200 mg PO TID PRN (Reason: cough) Qty: 20 0RF colchicine 0.6 mg tablet 0.6 mg PO DAILY Qty: 7 0RF prednisone 20 mg tablet 40 mg PO DAILY 4 Days Qty: 8 0RF morphine 15 mg tablet 15 mg PO TID PRN (Reason: pain) Qty: 12 0RF Rx Instructions: partial fill okay; Partial Fill upon patient request. ondansetron 4 mg tablet,disintegrating 4 mg PO Q8H PRN (Reason: nausea and vomiting) Qty: 20 0RF alcohol swabs Pads, Medicated topical methocarbamol 750 mg tablet 750 mg PO BID zolpidem 5 mg tablet 5 mg PO BEDTIME PRN cholecalciferol (vitamin D3) 50 mcg (2,000 unit) capsule 50 mcg PO DAILY omeprazole 10 mg capsule,delayed release(DR/EC) 10 mg PO DAILY digoxin 125 mcg (0.125 mg) tablet 62.5 mcg PO 3XW loratadine 10 mg tablet 10 mg PO DAILY carvedilol 25 mg tablet 25 mg PO BID aspirin 81 mg tablet,delayed release (DR/EC) 81 mg PO DAILY gabapentin 600 mg tablet 600 mg PO TID allopurinol 100 mg tablet 400 mg PO DAILY Entresto 49-51 mg tablet 1 tab PO BID furosemide 40 mg tablet 40 mg PO DAILY ferrous sulfate 325 mg (65 mg iron) tablet 325 mg PO BID triamcinolone acetonide 0.5 % cream topical diclofenac sodium 1 % gel 1 ea topical QID fluticasone propionate 50 mcg/actuation spray,suspension 0 mcg intranasal DAILY PRN (Reason: allergies) Eliquis 5 mg tablet 5 mg PO BID famotidine 40 mg tablet 40 mg PO DAILY
--- NOTE | 2023-09-14 15:59 | PC.NURSE ---
ambulated to room independently with strong, steady gait.
[2023-09-14 16:58] VITALS: BP 105/61; PULSE 76; RESP 16; O2SAT 97
== END 2023-09-14 18:22 | disposition home or self-care (01) ==
PROVIDERS: Emergency Provider Emergency Medicine; PCP Physician Assistant
DX: M79.674 Pain in right toe(s) (principal)
CPT/HCPCS: 73630; 99282; 99283

== ENCOUNTER 2023-12-08 13:23 | Outpatient (AMB) | payer OTHER, SELFPAY ==
[2023-12-08 13:26] VITALS: BP 82/54; PULSE 83; O2SAT 96; BMI 27.7
--- NOTE | 2023-12-08 13:26 | HO.NEPHOV ---
Vital Signs 12/08/23 13:26 Height 4 ft 9 in Weight 128 lb BMI 27.7 BP 82/54 L Blood Pressure Location Rt brachial Position Sitting Pulse 83 Pulse Source Pulse Oximeter Pulse Oximetry (%) 96 Oxygen Delivery Method Room Air Intake Visit Reasons: CKD/ Confirmed Director Social Required: Yes Allergies egg [EGG] Allergy (Intermediate, Verified 01/26/24 10:56) RASH Fish Containing Products Allergy (Intermediate, Verified 01/26/24 10:56) RASH oxycodone [OXYCODONE] Allergy (Intermediate, Verified 01/26/24 10:56) RASH acetaminophen [From PERCOCET] Allergy (Unknown, Verified 01/26/24 10:56) RASH/ITCHING codeine [CODEINE] Allergy (Unknown, Verified 01/26/24 10:56) ITCHING hydrocodone [From VICODIN] Allergy (Unknown, Verified 01/26/24 10:56) UNKNOWN lisinopril [LISINOPRIL] Allergy (Unknown, Verified 01/26/24 10:56) UNKNOWN metoclopramide [From REGLAN] Allergy (Unknown, Verified 01/26/24 10:56) UNKNOWN naproxen [Naprosyn] Allergy (Unknown, Verified 01/26/24 10:56) Unknown tramadol Allergy (Unknown, Verified 01/26/24 10:56) Unknown Codeine Sulfate Allergy (Unknown, Uncoded 01/05/23 13:56) Unknown Percocet Allergy (Unknown, Uncoded 01/05/23 13:56) Unknown Vicodin Allergy (Unknown, Uncoded 01/05/23 13:56) Unknown HPI Comments Details: 68 yr old woman with DM and HTN with CKD Recently had an episode of [facility] Medical History CHF (congestive heart failure) Hypoglycemia unawareness associated with type 2 diabetes mellitus Vitamin D deficiency Diabetic neuropathy associated with type 2 diabetes mellitus CKD (chronic kidney disease) stage 3, GFR 30-59 ml/min Hypertension Dyslipidemia 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 Non-toxic multinodular goiter Diabetes type 2, uncontrolled Surgical History Hx of biopsy AICD (automatic cardioverter/defibrillator) present Hx of appendectomy Hx of hysterectomy Family History Father Alcoholism Diabetes Mother Arthritis Hypertension Social History Alcohol intake: current Alcohol intake frequency: does not drink Patient Tobacco Use Status: Never used Tobacco Physical Exam Vital Signs: Last Vital Signs Pulse 83 12/08/23 13:26 BP 82/54 L 12/08/23 13:26 Pulse Ox 96 12/08/23 13:26 Oxygen Delivery Method Room Air 12/08/23 13:26 BMI result Body Mass Index 27.7 Const General: comfortable Nutritional Appearance: well nourished Orientation/consciousness: patient oriented x3 HEENT Head: No normal to inspection Mouth: moist mucous membranes Neck Neck: Yes supple and Yes no JVD Resp Auscultation: clear to auscultation bilaterally, no rales and rub present Cardio Jugular venous distension: no JVD Palpation: no palpable S3 and no palpable S4 Heart sounds: no rubs GI Palpation (GI): Soft to palpation and nontender Percussion: No Fluid wave present General: Yes no CVA tenderness Back/Spine/Pelvis Back: no CVA tenderness Skin General skin exam: no rashes or lesions noted Neuro General: patient oriented x3 Extrem General: Yes no pedal edema and No clubbing Results Reviewed Nephrology Results: Hgb 10.2 g/dl (12.0-16.0) L 01/25/23 WBC 13.2 X10*3/uL (4.8-10.8) H 01/25/23 Plt Count 276 X10*3/uL (160-400) 01/25/23 Sodium 140 mmol/L (135-145) 06/11/23 Potassium 3.4 mmol/L (3.3-5.1) 06/11/23 Chloride 100 mmol/L (96-108) 06/11/23 Carbon Dioxide 32 mmol/L (22-29) H 06/11/23 BUN 17 mg/dL (9-16) H 06/11/23 Creatinine 1.43 mg/dL (0.5-1.4) H 06/11/23 Calcium 9.2 mg/dL (8.4-10.2) 06/11/23 PTH Intact 33 pg/mL (16-77) 06/11/23 Assessment & Plan Assessment & Plan (1) CKD (chronic kidney disease) stage 3, GFR 30-59 ml/min: Code(s): N18.30 - Chronic kidney disease, stage 3 unspecified Category: Medical Qualifiers: Chronic kidney disease stage 3 subtype: unspecified whether 3a or 3b Qualified Code(s): N18.30 - Chronic kidney disease, stage 3 unspecified (2) Hypertension: Code(s): I10 - Essential (primary) hypertension Category: Medical Qualifiers: Hypertension type: essential hypertension Qualified Code(s): I10 - Essential (primary) hypertension Plan 68-year-old man with history of congestive heart failure and CKD. Recent creatinine was 1.4. Renal function is baseline. Goal is to slow the portion disease Continue overt nephrotoxic agents. She has gout I have given her a short course of prednisone. She will follow up with Rheumatology. Medications: New prednisone 10 mg PO DAILY 7 tabs 0RF Coding Level of Care Code Est Pt Level 4 (93023) Diagnoses Stage 3 chronic kidney disease, unspecified whether stage 3a or 3b CKD N18.30 Chronic kidney disease stage 3 subtype: unspecified whether 3a or 3b Essential hypertension I10 Hypertension type: essential hypertension
== END 2023-12-08 13:52 | disposition home or self-care (01) ==
LOC: HO.HKA 13:23
PROVIDERS: PCP Physician Assistant; Visit Provider Internal Medicine Hypertension Specialist
DX: N18.30 Chronic kidney disease, stage 3 unspecified (principal); I10 Essential (primary) hypertension
CPT/HCPCS: 99214

== ENCOUNTER → 2023-12-08 13:23 | Outpatient (BNVA) | payer OTHER, SELFPAY | PROVIDERS: PCP Physician Assistant; Visit Provider Internal Medicine Hypertension Specialist | DX: I12.9 Hypertensive chronic kidney disease with stage 1 through stage 4 chronic kidney disease, or unspecified chronic kidney disease (principal); N18.30 Chronic kidney disease, stage 3 unspecified | CPT/HCPCS: 99212 ==

== ENCOUNTER 2024-01-26 10:50 | Outpatient (AMB) | payer OTHER, SELFPAY ==
[2024-01-26 10:51] VITALS: BP 98/58; PULSE 82; O2SAT 95; BMI 28.8
--- NOTE | 2024-01-26 10:51 | HO.NEPHOV ---
Vital Signs 01/26/24 10:51 Height 4 ft 9 in Weight 133 lb BMI 28.8 BP 98/58 L Blood Pressure Location Lt brachial Position Sitting Pulse 82 Pulse Source Pulse Oximeter Pulse Oximetry (%) 95 Oxygen Delivery Method Room Air Intake Visit Reasons: CKD/ 6 weeks fu/ Conf Manager Transportation Planning Required: Yes Manager Transportation Planning Name: Javon [id number] Accompanied by: Self / Same As Patient Allergies egg [EGG] Allergy (Intermediate, Verified 01/26/24 10:56) RASH Fish Containing Products Allergy (Intermediate, Verified 01/26/24 10:56) RASH oxycodone [OXYCODONE] Allergy (Intermediate, Verified 01/26/24 10:56) RASH acetaminophen [From PERCOCET] Allergy (Unknown, Verified 01/26/24 10:56) RASH/ITCHING codeine [CODEINE] Allergy (Unknown, Verified 01/26/24 10:56) ITCHING hydrocodone [From VICODIN] Allergy (Unknown, Verified 01/26/24 10:56) UNKNOWN lisinopril [LISINOPRIL] Allergy (Unknown, Verified 01/26/24 10:56) UNKNOWN metoclopramide [From REGLAN] Allergy (Unknown, Verified 01/26/24 10:56) UNKNOWN naproxen [Naprosyn] Allergy (Unknown, Verified 01/26/24 10:56) Unknown tramadol Allergy (Unknown, Verified 01/26/24 10:56) Unknown Codeine Sulfate Allergy (Unknown, Uncoded 01/05/23 13:56) Unknown Percocet Allergy (Unknown, Uncoded 01/05/23 13:56) Unknown Vicodin Allergy (Unknown, Uncoded 01/05/23 13:56) Unknown Medication List - Last Reconciled 01/26/24 by Tavares Cutler MD albuterol sulfate 90 mcg/actuation (ProAir HFA) 2 puffs inhalation Q4-6H PRN alcohol swabs pad topical allopurinol 400 mg PO DAILY apixaban (Eliquis) 5 mg PO BID aspirin 81 mg PO DAILY atorvastatin 40 mg PO DAILY blood sugar diagnostic (FreeStyle Lite Strips) 1 strip miscellaneous BID 90 days carvedilol 25 mg PO BID cholecalciferol (vitamin D3) 50 mcg PO DAILY diclofenac sodium 1% 1 ea topical QID fluticasone propionate 50 mcg/actuation 0 mcg intranasal DAILY PRN furosemide 40 mg PO DAILY gabapentin 600 mg PO TID insulin glargine (Lantus Solostar U-100 Insulin) 10 units (0.1 mL) subcut DAILY 30 days lancets To test blood glucose 2 times a day lancing device (Adjustable Lancing Device) 3 times a day linagliptin (Tradjenta) 5 mg PO DAILY 90 days loratadine 10 mg PO DAILY methocarbamol 750 mg PO BID omeprazole 10 mg PO DAILY ondansetron 4 mg PO Q8H PRN pen needle, diabetic (BD Radha 2nd Gen Pen Needle) once a day prednisone 20 mg PO DAILY PRN prednisone 10 mg PO DAILY prednisone 40 mg PO DAILY PRN sacubitril-valsartan 97-103 mg (Entresto) 1 tab PO BID triamcinolone acetonide 0.5% appl topical zolpidem 5 mg PO BEDTIME PRN HPI Comments Details: 68 yr old woman with DM and HTN with CKD Complains of pain and swelling of the right hand. She had a course of prednisone which helped her previously. Recent echocardiogram showed severely dilated left ventricle with severe global hypokinesis Today she has no shortness of breath. She is compliant with all her medications. No lightheadedness. Manager Transportation Planning service was used [facility] Medical History CHF (congestive heart failure) Hypoglycemia unawareness associated with type 2 diabetes mellitus Vitamin D deficiency Diabetic neuropathy associated with type 2 diabetes mellitus CKD (chronic kidney disease) stage 3, GFR 30-59 ml/min Hypertension Dyslipidemia assisted (current) use of insulin Non-toxic multinodular goiter Diabetes type 2, uncontrolled Surgical History Hx of biopsy AICD (automatic cardioverter/defibrillator) present Hx of appendectomy Hx of hysterectomy Family History Father Alcoholism Diabetes Mother Arthritis Hypertension Social History Alcohol intake: current Alcohol intake frequency: does not drink Patient Tobacco Use Status: Never used Tobacco Review of Systems Const Denies fever(s) and Denies weight loss Card Denies chest pain Resp Denies cough and Denies hemoptysis GI Denies abdominal pain, Denies diarrhea and Denies nausea Musc Denies back pain Neuro Denies focal weakness Physical Exam Vital Signs: Last Vital Signs Pulse 82 01/26/24 10:51 BP 98/58 L 01/26/24 10:51 Pulse Ox 95 01/26/24 10:51 Oxygen Delivery Method Room Air 01/26/24 10:51 BMI result Body Mass Index 28.8 Neck Neck: Yes supple Resp Auscultation: clear to auscultation bilaterally Cardio Palpation: no palpable S3 Heart sounds: no rubs GI Palpation (GI): Soft to palpation Auscultation: normal bowel sounds Neuro Motor exam (neuro): no asterixis Results Reviewed Nephrology Results: Hgb 10.2 g/dl (12.0-16.0) L 01/25/23 WBC 13.2 X10*3/uL (4.8-10.8) H 01/25/23 Plt Count 276 X10*3/uL (160-400) 01/25/23 Sodium 140 mmol/L (135-145) 06/11/23 Potassium 3.4 mmol/L (3.3-5.1) 06/11/23 Chloride 100 mmol/L (96-108) 06/11/23 Carbon Dioxide 32 mmol/L (22-29) H 06/11/23 BUN 17 mg/dL (9-16) H 06/11/23 Creatinine 1.43 mg/dL (0.5-1.4) H 06/11/23 Calcium 9.2 mg/dL (8.4-10.2) 06/11/23 PTH Intact 33 pg/mL (16-77) 06/11/23 Assessment & Plan Assessment & Plan (1) CKD (chronic kidney disease) stage 3, GFR 30-59 ml/min: Code(s): N18.30 - Chronic kidney disease, stage 3 unspecified Category: Medical Qualifiers: Chronic kidney disease stage 3 subtype: unspecified whether 3a or 3b Qualified Code(s): N18.30 - Chronic kidney disease, stage 3 unspecified Plan 68-year-old woman with a longstanding hypertension diabetes mellitus with CKD. She has stage III CKD. Renal function back to baseline. Serum creatinine 1.28. LALO has resolved. She appears euvolemic. Continue current dose of diuretics. Encouraged her to stay on low-sodium diet. Continue with current medications including SGLT2 inhibitors and no changes were made. Maintain A1c less than 7% Avoid nephrotoxic agents including NSAIDs. Gout I have given her another course of prednisone. Encouraged her to follow up with Rheumatology. Orders: Orders Basic Metabolic Panel Today N18.30 - Chronic kidney disease, stage 3 unspecified Total Protein Urine Random Today N18.30 - Chronic kidney disease, stage 3 unspecified Creatinine Urine Today N18.30 - Chronic kidney disease, stage 3 unspecified Uric Acid Today N18.30 - Chronic kidney disease, stage 3 unspecified UA and rflx microscopic Today N18.30 - Chronic kidney disease, stage 3 unspecified Medications: Changed From allopurinol 400 mg PO DAILY To allopurinol 200 mg PO DAILY Refilled prednisone 10 mg PO DAILY 7 tabs 0RF Coding Level of Care Code Est Pt Level 4 (77190) Diagnoses Stage 3 chronic kidney disease, unspecified whether stage 3a or 3b CKD N18.30 Chronic kidney disease stage 3 subtype: unspecified whether 3a or 3b
== END 2024-01-26 11:18 | disposition home or self-care (01) ==
PROVIDERS: PCP Physician Assistant; Visit Provider Internal Medicine Hypertension Specialist
DX: N18.30 Chronic kidney disease, stage 3 unspecified (principal)
CPT/HCPCS: 99214

== ENCOUNTER → 2024-01-26 10:50 | Outpatient (BNVA) | payer OTHER, SELFPAY | PROVIDERS: PCP Physician Assistant; Visit Provider Internal Medicine Hypertension Specialist | CPT/HCPCS: 99212 ==

== ENCOUNTER 2024-01-26 11:31 | Outpatient (REF) | payer OTHER, SELFPAY ==
[2024-01-26 13:32] LABS: Appearance Urine Clear; Color Urine Yellow; Glucose Urine UA Negative (Negative); Leukocyte Esterase Urine Negative (Negative); Nitrite Urine Negative (Negative); Urine Blood Negative (Negative); Urine Ketones Negative (Negative); Urine Protein Negative (Neg-Trace)
[2024-01-26 13:56] LABS: Anion Gap 11 (12-20); Blood Urea Nitrogen 14 mg/dL (9-16); Calcium 8.8 mg/dL (8.4-10.2); Carbon Dioxide 29 mmol/L (22-29); Chloride 105 mmol/L (96-108); Estimated Glomerular Filt Rate 51; Glucose Random 113 mg/dL (60-115); Potassium 3.4 mmol/L (3.3-5.1); Sodium 142 mmol/L (135-145); Uric Acid 10.5 mg/dL (2.4-5.7)
[2024-01-26 14:32] LABS: Creatinine Urine 130.19 mg/dL; Total Protein Urine Random 10 mg/dL (<12)
== END 2024-01-26 11:32 | disposition home or self-care (01) ==
LOC: HO.10HDL 11:31
PROVIDERS: Visit Provider Internal Medicine Hypertension Specialist
DX: I12.9 Hypertensive chronic kidney disease with stage 1 through stage 4 chronic kidney disease, or unspecified chronic kidney disease (principal); E11.22 Type 2 diabetes mellitus with diabetic chronic kidney disease; N18.30 Chronic kidney disease, stage 3 unspecified
CPT/HCPCS: 36415; 80048; 81003; 82570; 84156; 84550; 99212

== ENCOUNTER 2024-01-30 14:54 | Inpatient (IN) | payer OTHER, SELFPAY ==
[2024-01-30] VITALS (10 sets, daily range): BP systolic 107–130; BP diastolic 60–90; PULSE 83–104; RESP 16–20; TEMP 36.6–36.8; O2SAT 94–98; BMI 29.0; BMI 26.9
--- NOTE | 2024-01-30 | ECG_ITS ---
Test Reason : CHEST PAIN Blood Pressure : / mmHG Vent. Rate : 097 BPM Atrial Rate : 097 BPM P-R Int : 160 ms QRS Dur : 156 ms QT Int : 398 ms P-R-T Axes : 045 -04 -55 degrees QTc Int : 505 ms Sinus rhythm with Incomplete left bundle branch block with intermittent Left bundle branch block Abnormal ECG When compared with ECG of 25-JAN-2023 15:47, Left bundle branch block is now Present Minimal criteria for Septal infarct are no longer Present Referred By: Generic ED Physician Electronically Signed By:VKIAS JAFFE MD
--- NOTE | ~2024-01-30 | XR_ITS ---
EXAMINATION: XR CHEST CLINICAL INFORMATION: Shortness of breath, chest pain COMPARISON: Chest radiograph 05/27/2023 TECHNIQUE: Frontal view of the chest was obtained. FINDINGS: Single lead left chest wall pacemaker in similar position compared to prior exam. Overlying EKG wires. The lungs are mildly hypoexpanded. Central vascular congestion. New hazy right basilar and left retrocardiac opacities. No significant pleural effusions. No pneumothorax. The cardiomediastinal silhouette is unchanged. No acute osseous abnormality. XR/XR chest 1V IMPRESSION: New hazy right basilar and left retrocardiac opacities which may be secondary to infectious or inflammatory etiology. Mild central vascular congestion.
--- NOTE | ~2024-01-30 | CT_ITS ---
EXAMINATION: CT ANGIOGRAM OF THE CHEST WITH AND WITHOUT CONTRAST (CT PULMONARY ANGIOGRAM FOR PE) CLINICAL INFORMATION: SOB COMPARISON: None available. TECHNIQUE: Prior to contrast administration, noncontrast localization images were obtained. Subsequently, multidetector volumetric imaging was performed from the thoracic inlet to below the diaphragms following the administration of 65 mL Omnipaque 350 intravenous contrast. No contrast reaction reported Sagittal, coronal, and MIP oblique sagittal reformatted images were obtained on the CT workstation, uploaded to PACS, and reviewed. This CT examination was performed using dose optimization techniques as appropriate, variously including the following: *Automated exposure control *Adjustment of mA and/or kV according to patient size (this includes techniques or standardized protocols for targeted exams where dose is matched to indication/reason for exam; i.e. extremities or head) *Use of iterative reconstruction technique Total exam dose-length product 260 mGy-cm FINDINGS: QUALITY OF STUDY/CONTRAST BOLUS: Satisfactory. PULMONARY ARTERIES: No pulmonary emboli. THORACIC AORTA: No aneurysm. LUNG: Small pleural effusions bilaterally with associated atelectasis. Interlobular septal thickening in the bilateral lower lobes. Subtle patchy groundglass opacities in the perihilar regions upper lung zones bilaterally. No pneumothorax. No suspicious pulmonary nodule. MEDIASTINUM: There is a focal pericardial/anterior mediastinal simple fluid attenuating lesion which measures The 6 x 4.7 x 6.7 cm (series #6 axial image 21 and series #10 sagittal image 37). Normal heart size. No hilar or mediastinal lymphadenopathy. Known left thyroid nodules are better seen on ultrasound. No evidence of septal bowing or right heart strain. CORONARY ARTERY CALCIFICATION: None visualized on this study. CHEST WALL/AXILLA: No axillary or internal mammary lymphadenopathy. Left subclavian single-lead AICD. OSSEOUS STRUCTURES: No acute or suspicious osseous abnormality. UPPER ABDOMEN: Status post cholecystectomy. There is reflux of contrast into the hepatic veins to suggest elevated right heart pressures. CT/CT angio chest PE protocol IMPRESSION: 1. No pulmonary emboli. 2. Mild pulmonary edema with small pleural effusions bilaterally. 3. There is a focal pericardial/anterior mediastinal simple fluid attenuating lesion which measures 6 x 4.7 x 6.7 cm. This could represent a pericardial cyst. 4. There is reflux of contrast into the hepatic veins to suggest elevated right heart pressures. VTE: negative.
--- NOTE | 2024-01-30 15:21 | PC.NURSE ---
patient arrives VIA EMS, per EMS patient has been having 5/10 chest pain and shortness of breath since last night at around 9pm, patient arrives to ED short of breath and tells this RN that she has the pain when she takes a deep breath, upon auscultation patient with expiratory wheezes bilaterally throughout lung ambrosio. patient noted to have internal cardiac defibrillator, unable to tell this RN what it was placed for. patient denies any sick contacts, denies any fevers, state she has not been coughing. patient states the pain is constant however worse upon inspiration. placed on vehicle monitor technician upon arrival, no edema noted to extremities. EKG completed upon arrival. patient provided with callbell and covered with blanket for comfort, bed in lowest locked position. awaiting provider eval at this point
[2024-01-30 16:33] LABS: Influenza A PCR NEGATIVE (Negative); Influenza B PCR NEGATIVE (Negative); Resp Syncy Virus RNA Qual PCR NEGATIVE (Negative); SARS COV2 PCR INHOUSE NEGATIVE (Negative)
--- NOTE | 2024-01-30 16:49 | ED.SOB ---
HPI - SOB/Dyspnea General Chief Complaint: Dyspnea Stated Complaint: Chest pain SOB Time Seen by Provider: 01/30/24 16:03 Source: patient and EMS Mode of arrival: EMS Limitations: no limitations History of Present Illness ED Provider: Vik BLOCK HPI Narrative: 68-year-old female history of obesity AICD in place, CHF, CKD, diabetes, hypertension, dyslipidemia, nontoxic multinodular goiter presenting to the emergency department for evaluation of substernal chest discomfort, difficulty breathing all of which started at approximately 21:00 last night. Patient reports it hurts when she takes a deep breath. She reports her symptoms are precipitated by ambulation and exertion and better at rest. Denies sick contacts, fevers, chills, nausea, vomiting, abdominal pain, headache, vision changes, dizziness and weakness. Related Data Home Medications ?Medication ?Instructions ?Recorded ?Confirmed alcohol swabs pad topical 06/04/20 01/26/24 aspirin 81 mg tablet,delayed 81 mg PO DAILY 06/04/20 01/26/24 release carvedilol 25 mg tablet 25 mg PO BID 06/04/20 01/26/24 cholecalciferol (vitamin D3) 50 50 mcg PO DAILY 06/04/20 01/26/24 mcg (2,000 unit) capsule gabapentin 600 mg tablet 600 mg PO TID 06/04/20 01/26/24 loratadine 10 mg tablet 10 mg PO DAILY 06/04/20 01/26/24 methocarbamol 750 mg tablet 750 mg PO BID 06/04/20 01/26/24 omeprazole 10 mg capsule,delayed 10 mg PO DAILY 06/04/20 01/26/24 release zolpidem 5 mg tablet 5 mg PO BEDTIME PRN 06/04/20 01/26/24 furosemide 40 mg tablet 40 mg PO DAILY 09/24/20 01/26/24 apixaban 5 mg tablet (Eliquis) 5 mg PO BID 01/05/23 01/26/24 diclofenac sodium 1 % topical gel 1 ea topical QID 01/05/23 01/26/24 fluticasone propionate 50 0 mcg intranasal DAILY PRN 01/05/23 01/26/24 mcg/actuation nasal allergies spray,suspension triamcinolone acetonide 0.5 % appl topical 01/05/23 01/26/24 topical cream sacubitril 97 mg-valsartan 103 mg 1 tab PO BID 12/08/23 01/26/24 tablet (Entresto) allopurinol 100 mg tablet 200 mg PO DAILY 01/26/24 01/26/24 Previous Rx's ?Medication ?Instructions ?Recorded lancing device (Adjustable Lancing #1 ea 02/01/21 Device) lancets 28 gauge #200 ea 05/02/21 albuterol sulfate 90 mcg/actuation 2 puff inhalation Q4-6H PRN 07/30/21 aerosol inhaler (ProAir HFA) shortness of breath or wheezing #8.5 grams insulin glargine 100 unit/mL (3 10 unit (0.1 mL) subcut DAILY 30 01/08/22 mL) subcutaneous pen ( #3 mL Solostar U-100 Insulin) pen needle, diabetic 32 gauge x #50 ea 01/08/22 (BD Radha 2nd Gen Pen Needle) blood sugar diagnostic (FreeStyle 1 strip miscellaneous BID 90 days 07/16/22 Lite Strips) #200 strips atorvastatin 40 mg tablet 40 mg PO DAILY #90 tabs 08/21/23 ondansetron 4 mg disintegrating 4 mg PO Q8H PRN nausea and 09/09/23 tablet vomiting #20 tabs linagliptin 5 mg tablet (Tradjenta) 5 mg PO DAILY 90 days #90 tabs 11/13/23 prednisone 10 mg tablet 10 mg PO DAILY #7 tabs 01/26/24 Allergies Allergy/AdvReac Type Severity Reaction Status Date / Time egg [EGG] Allergy Intermediate RASH Verified 01/30/24 15:15 Fish Containing Products Allergy Intermediate RASH Verified 01/30/24 15:15 oxycodone [OXYCODONE] Allergy Intermediate RASH Verified 01/30/24 15:15 acetaminophen [From PERCOCET] Allergy Unknown RASH/ITCHIN Verified 01/30/24 15:15 G codeine [CODEINE] Allergy Unknown ITCHING Verified 01/30/24 15:15 hydrocodone [From VICODIN] Allergy Unknown UNKNOWN Verified 01/30/24 15:15 lisinopril [LISINOPRIL] Allergy Unknown UNKNOWN Verified 01/30/24 15:15 metoclopramide [From REGLAN] Allergy Unknown UNKNOWN Verified 01/30/24 15:15 naproxen [Naprosyn] Allergy Unknown Unknown Verified 01/30/24 15:15 tramadol Allergy Unknown Unknown Verified 01/30/24 15:15 Codeine Sulfate Allergy Unknown Unknown Uncoded 01/30/24 15:15 Percocet Allergy Unknown Unknown Uncoded 01/30/24 15:15 Vicodin Allergy Unknown Unknown Uncoded 01/30/24 15:15 Review of Systems Review of Systems: Yes all other systems are reviewed and are negative PMFSH Past Medical History Attestation statement: The following information was validated with the patient. 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 Non-toxic multinodular goiter Diabetes type 2, uncontrolled Surgical History Hx of biopsy AICD (automatic cardioverter/defibrillator) present Hx of appendectomy Hx of hysterectomy Family History Family History Father Alcoholism Diabetes Mother Arthritis Hypertension Social History Social History Unable to assess alcohol history related to: Unknown Alcohol intake: current Alcohol intake frequency: does not drink Patient Tobacco Use Status: Never used Tobacco Smoked in Last 30 Days: No Use of substances other than those prescribed or required for medical reasons: No Advance Directives: No Advance Directives Information Provided: No Do you have a plan to hurt others: No Plan Physical Exam Vital Signs: Vital Signs: Last Vital Signs Temp 97.9 F 01/30/24 19:23 Pulse 93 01/30/24 19:23 Resp 20 01/30/24 19:23 BP 107/60 01/30/24 19:23 Pulse Ox 97 01/30/24 19:23 O2 Del Method Nasal Cannula 01/30/24 19:23 O2 Flow Rate 2 01/30/24 19:23 Oxygen Flow Rate 2 01/30/24 15:13 BMI result Body Mass Index 29.0 vss Appearance: Alert.? Oriented X3.? No acute distress.? Head: Normocephalic, atraumatic, no step-offs or deformities Eyes: Pupils equal, round and reactive to light.? Neck: Normal inspection.? Neck supple.? CVS: Normal heart rate and rhythm.? Pulses normal.? Respiratory: No respiratory distress.? Breath sounds b/l LL crackles on exam .? Abdomen: Soft and nontender.? Skin: Skin warm and dry.? Normal skin color.? Normal skin turgor.? Extremities: No lower extremity edema.? No calf ttp. 5/5 strength to bilateral upper and lower extremities Back: No midline tenderness, no C-spine tenderness, full range of motion, no CVA tenderness bilaterally Neuro: Oriented X 3.? No motor deficit.? No sensory deficit. CN 2-12 intact Course Reevaluation(s) Reevaluation #1: CBC with leukocytosis, no shift. Chemistry with low potassium. Magnesium added. Will give p.o. potassium. BNP 1522, no previous to compare with. Normal troponin. Repeat troponin pending. Normal lactic acid. Time: 17:00 Reevaluation #2: X-ray of chest new hazy right basilar and left retrocardiac opacities which can be secondary to infectious or inflammatory etiologies, CTA ordered for further clarification. Patient doing well ambulatory trial 96% on room air however becomes very labored and the chest discomfort. Repeat troponin pending. Plan is for hospital admission for CHF and pneumonia. Time: 19:53 Medications Administered Discontinued Medications Generic Name Dose Route Start Last Admin Trade Name Freq PRN Reason Stop Dose Admin Furosemide 40 mg 01/30/24 17:45 01/30/24 18:03 Furosemide 40 Mg/4 Ml Vial IVPUSH 01/30/24 17:46 40 mg ONCE ONE Administration Protocol Ceftriaxone Sodium 1 gm/ 50 mls @ 100 mls/hr 01/30/24 18:27 01/30/24 19:37 Sodium Chloride IV 01/30/24 18:56 Infused ONCE ONE Infusion Iohexol 100 ml 01/30/24 19:28 01/30/24 19:28 Iohexol 350 Mg/Ml 100 Ml Infus..Btl IV 01/30/24 19:29 65 ml ONCE ONE Administration Potassium Chloride 40 meq 01/30/24 17:45 01/30/24 18:02 Potassium Chloride Packet 20 Meq Packet PO 01/30/24 17:46 40 meq ONCE ONE Administration Medical Decision Making Medical Decision Making [facility] Narrative: 1651 68-year-old female presents with concerns of shortness of breath, chest discomfort all of which started at 21:00 last night worse with exertion better at rest. Upon chart review it appears as though patient is on apixaban 5 mg p.o. b.i.d.. Physical examination b/l lower lobe crackles History and physical exam concerning for viral illness versus bronchitis versus pneumonia. Unlikely PE as she is anticoagulated. Unlikely ACS, dissection or acute respiratory distress. Crackles ? CHF for effusion Plan labs, imaging, urine, viral testing. Differential Diagnosis Differential Diagnoses: The differential diagnosis associated with the presentation includes History and physical exam concerning for viral illness versus bronchitis versus pneumonia. Unlikely PE as she is anticoagulated. Unlikely ACS, dissection or acute respiratory distress. Crackles ? CHF for effusion Lab Data [facility] Lab Attestation statement: I reviewed the patient's lab results. 01/30/24 16:44 01/30/24 16:44 Labs: Lab Results 01/30/24 01/30/24 01/30/24 Range/Units 15:39 16:44 16:55 WBC 16.3 H (4.8-10.8) X10*3/uL RBC 4.25 (4.20-5.50) X10*6/uL Hgb 10.5 L (12.0-16.0) g/dl Hct 33.8 L (37.0-47.0) % MCV 79.5 L (80.0-98.0) fL MCH 24.7 L (27.0-33.0) pg MCHC 31.1 (31.0-35.0) g/dl RDW 13.5 (11.0-16.0) % Plt Count 318 (160-400) X10*3/uL MPV 9.9 (9.4-12.3) fL Immature Gran % (Auto) 0.6 H (0.0-0.4) % Neut % (Auto) 68.6 (45-73) % Lymph % (Auto) 18.9 L (20-40) % [place] % (Auto) 10.2 (2-11) % Eos % (Auto) 1.1 (0-4) % Baso % (Auto) 0.6 (0-2) % Lymph # (Auto) 3.1 (1.2-4.9) X10*3/uL [place] # (Auto) 1.7 H (0.1-1.2) X10*3/uL Eos # (Auto) 0.2 (0.0-0.4) X10*3/uL Baso # (Auto) 0.1 (0.0-0.2) X10*3/uL Abs Immat Gran (auto) 0.09 H (0.00-0.03) X10*3/uL Absolute Neuts (auto) 11.2 H (2.0-8.3) x10*3/uL Absolute Nucleated RBC 0.000 (0.0-0.012) X10*3/uL Nucleated RBC % (auto) 0.0 (0.0-0.2) /100WBC Smear Tech's Comments VERIFIED PT 18.7 H (11.1-13.3) SEC INR 1.5 H (0.9-1.1) Sodium 142 (135-145) mmol/L Potassium 3.2 L (3.3-5.1) mmol/L Chloride 105 (96-108) mmol/L Carbon Dioxide 26 (22-29) mmol/L Anion Gap 14 (12-20) BUN 17 H (9-16) mg/dL Creatinine 1.22 (0.5-1.4) mg/dL Estim Creat Clear Calc 36.6 Estimated GFR 44 Random Glucose 106 (60-115) mg/dL Lactic Acid 0.9 (0.5-2.0) mmol/L Calcium 9.1 (8.4-10.2) mg/dL Magnesium 1.6 (1.6-2.6) mg/dL Total Bilirubin 0.4 (0.0-1.0) mg/dL AST 19 (5-31) U/L ALT 18 (0-31) U/L Alkaline Phosphatase 64 (39-117) U/L Troponin I High Sens 9.7 D (<3.5-17.0) ng/L B-Natriuretic Peptide 1522 H (<100) pg/mL Total Protein 6.3 L (6.5-8.0) g/dL Albumin 3.4 L (3.5-5.0) g/dL Influenza Type A (PCR) NEGATIVE (Negative) Influenza Type B (PCR) NEGATIVE (Negative) RSV RNA Qual (PCR) NEGATIVE (Negative) SARS-CoV-2 RNA (RT-PCR) NEGATIVE (Negative) Independent Interpretation I performed an independent interpretation of an: EKG (Vent. Rate : 097 BPM Atrial Rate : 097 BPM P-R Int : 160 ms QRS Dur : 156 ms QT Int : 398 ms P-R-T Axes : 045 -04 -55 degrees QTc Int : 505 ms Sinus rhythm with Fusion complexes Left bundle branch block Abnormal ECG When compared with ECG of 25-JAN-2023 15:47, Fusion c) and Plain X-Ray ( XR/XR chest 1V IMPRESSION: New hazy right basilar and left retrocardiac opacities which may be secondary to infectious or inflammatory etiology. Mild central vascular congestion. ) Radiology Impression Discussion of test interpretation with radiology: I have reviewed the radiologist's reading. External Record Review External record reviewed: Inpatient record, Office record, Outpatient record, Prior outpatient labs, Prior outpatient radiology, Primary care record and Outside ED record Chronic Conditions Patient?s care impacted by: Diabetes, Hypertension and Other (AICD, CHF) Critical Care Time Critical Care Time Critical Care Time: Yes Total Critical Care Time: 35 Attestation: I attest to this time spent taking care of the patient, obtaining history, physical, reviewing labs, imaging, speaking to my attending, specialist or hospitalist. Discharge Plan Discharge Clinical Impression: Pneumonia, CHF (congestive heart failure) Patient Disposition: Admitted As Inpatient Print Language: Andorran
[2024-01-30 16:55] LABS: Basophils Absolute Auto 0.1 X10*3/uL (0.0-0.2); Basophils Percent Auto 0.6 % (0-2); Eosinophils Absolute Auto 0.2 X10*3/uL (0.0-0.4); Eosinophils Percent Auto 1.1 % (0-4); Hematocrit 33.8 % (37.0-47.0); Hemoglobin 10.5 g/dl (12.0-16.0); Imm Gran Abs Auto 0.09 X10*3/uL (0.00-0.03); Imm Gran Pct Auto 0.6 % (0.0-0.4); Lymphocytes Absolute Auto 3.1 X10*3/uL (1.2-4.9); Lymphocytes Percent Auto 18.9 % (20-40); MANUAL DIFF FLAG SCAN; Mean Corpuscular HGB Conc 31.1 g/dl (31.0-35.0); Mean Corpuscular Hemoglobin 24.7 pg (27.0-33.0); Mean Corpuscular Volume 79.5 fL (80.0-98.0); Mean Platelet Volume 9.9 fL (9.4-12.3); Monocytes Absolute Auto 1.7 X10*3/uL (0.1-1.2); Monocytes Percent Auto 10.2 % (2-11); Neutrophils Absolute Auto 11.2 x10*3/uL (2.0-8.3); Neutrophils Percent Auto 68.6 % (45-73); Platelet Count 318 X10*3/uL (160-400); Red Blood Count 4.25 X10*6/uL (4.20-5.50); Red Cell Distribution Width 13.5 % (11.0-16.0); SCAN SMEAR FLAG 1; White Blood Count 16.3 X10*3/uL (4.8-10.8)
[2024-01-30 17:02] LABS: INTERNATIONAL NORM RATIO 1.5 (0.9-1.1); Prothrombin Time 18.7 SEC (11.1-13.3)
[2024-01-30 17:08] LABS: Alanine Aminotransferase 18 U/L (0-31); Albumin Level 3.4 g/dL (3.5-5.0); Alkaline Phosphatase 64 U/L (39-117); Anion Gap 14 (12-20); Aspartate Amino Transferase 19 U/L (5-31); Bilirubin Total 0.4 mg/dL (0.0-1.0); Blood Urea Nitrogen 17 mg/dL (9-16); Calcium 9.1 mg/dL (8.4-10.2); Carbon Dioxide 26 mmol/L (22-29); Chloride 105 mmol/L (96-108); Creatinine Clr Calc Pharmacy 36.6; Estimated Glomerular Filt Rate 44; Glucose Random 106 mg/dL (60-115); Magnesium 1.6 mg/dL (1.6-2.6); Potassium 3.2 mmol/L (3.3-5.1); Sodium 142 mmol/L (135-145); Total Protein 6.3 g/dL (6.5-8.0)
[2024-01-30 17:13] LABS: B Type Natriuretic Peptide 1522 pg/mL (<100); Troponin-I High Sensitivity 9.7 ng/L (<3.5-17.0)
[2024-01-30 17:19] LABS: Lactic Acid 0.9 mmol/L (0.5-2.0)
[2024-01-30] MEDS: Potassium Chloride Packet 20 MEQ PACKET 40 MEQ PO (18:02)
[2024-01-30] MEDS: Furosemide 40 MG/4 ML VIAL IVPUSH (18:03)
[2024-01-30 18:18] LABS: SLIDE REVIEW VERIFIED
[2024-01-30] MEDS: cefTRIAXone sodium 1 GM in 0.9 % Sodium Chloride 50 ML IV (19:00)
--- NOTE | 2024-01-30 19:16 | PC.NURSE ---
Assumed care of pt. Pt lying on stretcher, no acute distress at this time. Preparoing pt for CT.
[2024-01-30] MEDS: iohexoL 350 MG/ML 100 ML INFUS..BTL IV (19:28)
[2024-01-30] MEDS: Nitroglycerin 2 % Oint 1 GM Packet 0.5 INCH TRANSDERMA (20:21)
--- NOTE | 2024-01-30 20:58 | PM.IMHP ---
History of Present Illness Date of Service: 01/30/24 Attending physician on admission: Laura Atwood Chief Complaint: Shortness of breath Lida Benitez is a 68 years old woman with past medical history significant for cardiomyopathy/systolic congestive heart failure s/p AICD implantation, type 2 diabetes mellitus on insulin, hypertension and hyperlipidemia presents to the emergency department complaining of shortness on breath that started last night at 09:30 associated with chest pain that radiates across her chest, intensity 5/10. She denied any associated cough, fever, chills, headache, palpitations, sweating, nausea or vomiting. She denied any acute gastrointestinal or genitourinary symptoms. Denies tobacco smoking, alcohol abuse or illicit drug use. Patient mentioned that her AICD battery was recently changed. She stated that she is compliant with her home medications and avoid high sodium consumption. In the ED, she was found to have stable vital signs. Blood workup was remarkable for leukocytosis 16.3, hemoglobin is 10.5 which is at baseline. Platelets are normal. INR is 1.5. There is mild hypokalemia of 3.2. BNP is elevated, 1522, troponin is 9.7. LFTs are normal. Viral testing for COVID-19, influenza and RSV is negative. Chest CTA showed mild pulmonary edema with small pleural effusion bilaterally, findings possible representing pericardial cyst and elevated right heart pressures. ECG showed LBBB. ED tx: Furosemide 40 mg IV, nitro ointment 0.5 in, potassium 40 mEq p.o., ceftriaxone 1 g IV Review of Systems Review of Systems: All 12 systems were reviewed and normal except as noted in HPI. [facility] Medical History CHF (congestive heart failure) Hypoglycemia unawareness associated with type 2 diabetes mellitus Vitamin D deficiency Diabetic neuropathy associated with type 2 diabetes mellitus CKD (chronic kidney disease) stage 3, GFR 30-59 ml/min Hypertension Dyslipidemia superintendent terminal (current) use of insulin Non-toxic multinodular goiter Diabetes type 2, uncontrolled Family History Father Alcoholism Diabetes Mother Arthritis Hypertension Surgical History Hx of biopsy AICD (automatic cardioverter/defibrillator) present Hx of appendectomy Hx of hysterectomy Social History Unable to assess alcohol history related to: Unknown Alcohol intake: current Alcohol intake frequency: does not drink Patient Tobacco Use Status: Never used Tobacco Smoked in Last 30 Days: No Use of substances other than those prescribed or required for medical reasons: No Advance Directives: No Advance Directives Information Provided: No Do you have a plan to hurt others: No Plan Meds Allergies Allergy/AdvReac Type Severity Reaction Status Date / Time egg [EGG] Allergy Intermediate RASH Verified 01/30/24 15:15 Fish Containing Products Allergy Intermediate RASH Verified 01/30/24 15:15 oxycodone [OXYCODONE] Allergy Intermediate RASH Verified 01/30/24 15:15 acetaminophen [From PERCOCET] Allergy Unknown RASH/ITCHIN Verified 01/30/24 15:15 G codeine [CODEINE] Allergy Unknown ITCHING Verified 01/30/24 15:15 hydrocodone [From VICODIN] Allergy Unknown UNKNOWN Verified 01/30/24 15:15 lisinopril [LISINOPRIL] Allergy Unknown UNKNOWN Verified 01/30/24 15:15 metoclopramide [From REGLAN] Allergy Unknown UNKNOWN Verified 01/30/24 15:15 naproxen [Naprosyn] Allergy Unknown Unknown Verified 01/30/24 15:15 tramadol Allergy Unknown Unknown Verified 01/30/24 15:15 Codeine Sulfate Allergy Unknown Unknown Uncoded 01/30/24 15:15 Percocet Allergy Unknown Unknown Uncoded 01/30/24 15:15 Vicodin Allergy Unknown Unknown Uncoded 01/30/24 15:15 Active Medications: Current Medications Acetaminophen (Acetaminophen 325 Mg Tablet) 975 mg PO Q6H PRN PRN Reason: Pain, Mild (Pain Scale 1-3), fever or headache Melatonin (Melatonin 3 Mg Tablet) 6 mg PO BEDTIME PRN PRN Reason: Insomnia Sodium Chloride (0.9 % Sodium Chloride Flush 3 Ml Syringe) 3 ml IVFLUSH QSHIFT [facility] Home Medications ?Medication ?Instructions ?Recorded ?Confirmed ?Last Taken ?Type alcohol swabs pad topical 06/04/20 01/26/24 Unknown History aspirin 81 mg tablet,delayed 81 mg PO DAILY 06/04/20 01/26/24 Unknown History release carvedilol 25 mg tablet 25 mg PO BID 06/04/20 01/26/24 Unknown History cholecalciferol (vitamin D3) 50 50 mcg PO DAILY 06/04/20 01/26/24 01/30/24 History mcg (2,000 unit) capsule gabapentin 600 mg tablet 600 mg PO TID 06/04/20 01/26/24 Unknown History loratadine 10 mg tablet 10 mg PO DAILY 06/04/20 01/26/24 Unknown History methocarbamol 750 mg tablet 750 mg PO BID 06/04/20 01/26/24 Unknown History omeprazole 10 mg capsule,delayed 10 mg PO DAILY 06/04/20 01/26/24 Unknown History release zolpidem 5 mg tablet 5 mg PO BEDTIME PRN 06/04/20 01/26/24 Unknown History furosemide 40 mg tablet 40 mg PO DAILY 09/24/20 01/26/24 Unknown History apixaban 5 mg tablet (Eliquis) 5 mg PO BID 01/05/23 01/26/24 Unknown History diclofenac sodium 1 % topical gel 1 ea topical QID 01/05/23 01/26/24 Unknown History fluticasone propionate 50 0 mcg intranasal DAILY PRN 01/05/23 01/26/24 Unknown History mcg/actuation nasal allergies spray,suspension triamcinolone acetonide 0.5 % appl topical 01/05/23 01/26/24 Unknown History topical cream sacubitril 97 mg-valsartan 103 mg 1 tab PO BID 12/08/23 01/26/24 Unknown History tablet (Entresto) allopurinol 100 mg tablet 200 mg PO DAILY 01/26/24 01/26/24 Unknown History Physical Exam Vital Signs and Narrative: Vital Signs: Last Vital Signs Temp 97.9 F 01/30/24 19:23 Pulse 93 01/30/24 19:23 Resp 20 01/30/24 19:23 BP 107/60 01/30/24 19:23 Pulse Ox 97 01/30/24 19:23 O2 Del Method Nasal Cannula 01/30/24 19:23 O2 Flow Rate 2 01/30/24 19:23 Oxygen Flow Rate 2 01/30/24 15:13 BMI result Body Mass Index 29.0 Constitutional - Awake and Alert, No apparent distress. Cooperative. HEENT - PERRL, EOMI. Normal oropharynx. Heart - RRR, No murmur. Lungs - Normal lung expansion, Normal respiratory effort, No respiratory distress.Tachypneic. Left lower base crackles. Right lower base decreased breath sounds. No wheezing. No rhonchi. Abdomen - NT / ND; +BS; No rebound or guarding Extremities - no calf tenderness bilaterally, no swelling Musculoskeletal - Normal inspection, normal ROM Skin - Warm/Dry Neurological - Alert & oriented x3. No focal weakness. Normal speech. Psychological - Appropriate affect Results Labs 01/30/24 16:44 01/30/24 16:44 Labs: Laboratory Results - last 24 hr 01/30/24 01/30/24 01/30/24 15:39 16:44 16:55 MCV 79.5 L MCH 24.7 L MCHC 31.1 RDW 13.5 Plt Count 318 MPV 9.9 Immature Gran % (Auto) 0.6 H Neut % (Auto) 68.6 Lymph % (Auto) 18.9 L [place] % (Auto) 10.2 Eos % (Auto) 1.1 Baso % (Auto) 0.6 Lymph # (Auto) 3.1 [place] # (Auto) 1.7 H Eos # (Auto) 0.2 Baso # (Auto) 0.1 Abs Immat Gran (auto) 0.09 H Absolute Neuts (auto) 11.2 H Absolute Nucleated RBC 0.000 Nucleated RBC % (auto) 0.0 Smear Tech's Comments VERIFIED PT 18.7 H INR 1.5 H Anion Gap 14 Estim Creat Clear Calc 36.6 Estimated GFR 44 Random Glucose 106 Lactic Acid 0.9 Calcium 9.1 Magnesium 1.6 Total Bilirubin 0.4 AST 19 ALT 18 Alkaline Phosphatase 64 Troponin I High Sens 9.7 D B-Natriuretic Peptide 1522 H Total Protein 6.3 L Albumin 3.4 L Influenza Type A (PCR) NEGATIVE Influenza Type B (PCR) NEGATIVE RSV RNA Qual (PCR) NEGATIVE SARS-CoV-2 RNA (RT-PCR) NEGATIVE Imaging Radiologist's Impressions: Impressions Chest X-Ray 01/30/24 16:21 IMPRESSION: New hazy right basilar and left retrocardiac opacities which may be secondary to infectious or inflammatory etiology. Mild central vascular congestion. Chest CTA 01/30/24 19:33 IMPRESSION: 1. No pulmonary emboli. 2. Mild pulmonary edema with small pleural effusions bilaterally. 3. There is a focal pericardial/anterior mediastinal simple fluid attenuating lesion which measures 6 x 4.7 x 6.7 cm. This could represent a pericardial cyst. 4. There is reflux of contrast into the hepatic veins to suggest elevated right heart pressures. VTE: negative. Assessment and Plan (1) Acute on chronic systolic congestive heart failure: Status: Acute (2) Pericardial cyst: Status: Acute (3) AICD (automatic cardioverter/defibrillator) present: Status: Acute (4) CKD (chronic kidney disease) stage 3, GFR 30-59 ml/min: Qualifiers: Chronic kidney disease stage 3 subtype: unspecified whether 3a or 3b Qualified Code(s): N18.30 - Chronic kidney disease, stage 3 unspecified Status: Acute (5) Hypertension: Qualifiers: Hypertension type: essential hypertension Qualified Code(s): I10 - Essential (primary) hypertension Status: Acute (6) Dyslipidemia: Status: Acute Plan Lida Benitez is a 68 y/o woman admitted with: Shortness on breath likely multifactorial: Acute on chronic systolic congestive heart failure associated with small bilateral pleural effusions + pericardial cyst. Not convinced she has pneumonia. Admit to hospitalist service. Telemetry. Pulse oximetry. Supplemental O2 as needed to keep O2 sats >90 %. Continue diuresis with Lasix 40 mg IV b.i.d.. Continue carvedilol and Entresto. Continue nitro ointment. Check procalcitonin. Cardiology consult. Chest pain, likely secondary to above. Continue to monitor troponin. Continue baby aspirin and statin. Telemetry. Type 2 diabetes mellitus. BG checks before meals at bedtime. Lantus, linagliptin and insulin sliding scale. Diabetic diet. Hyperlipidemia. Continue statin. Essential hypertension. Continue carvedilol. Chronic AFib. Continue carvedilol and Eliquis. CKD, stage 3B. Renal function is at baseline. Avoid nephrotoxic agents. Continue follow-up as an outpatient with Nephrology. Gout. Continue allopurinol. s/p AICD placement. Hx nontoxic multinodular goiter. S/p right lobectomy. Euthyroid. Continue follow-up as an outpatient with endocrinology. DVT prophylaxis: Eliquis. Code status: Full Patient will need hospitalization for at least 2 midnight for acute on chronic systolic congestive heart failure treatment with IV diuresis, continuous cardiac monitoring and evaluation by subspecialty. Quality Stroke Does the patient have a stroke diagnosis?: No VTE Prior VTE?: No VTE Risk Level:: Medical - moderate - high VTE Device Contraindication: Treatment Not Indicated VTE Drug Contraindication: N/A - Med Ordered
[2024-01-30 21:19] LABS: Troponin-I High Sensitivity 12.5 ng/L (<3.5-17.0)
[2024-01-30] MEDS: Apixaban 5 MG TABLET PO (21:44)
[2024-01-30] MEDS: carvediloL 25 MG TABLET PO (21:44)
[2024-01-30] MEDS: Insulin Glargine,Hum.rec.anlog 100 UNIT/ML 10 ML VIAL 10 UNIT SUBCUT (21:45)
[2024-01-30] MEDS: 0.9 % Sodium Chloride Flush 3 ML SYRINGE IVFLUSH (22:37)
[2024-01-30 22:44] LABS: Glucose, Whole Blood 107 mg/dL (60-115)
[2024-01-31] VITALS (7 sets, daily range): BP systolic 98–111; BP diastolic 50–59; PULSE 76–88; RESP 16–20; TEMP 36–36.7; O2SAT 93–97
[2024-01-31] MEDS: Acetaminophen 325 MG TABLET 975 MG PO (03:49)
[2024-01-31 06:20] LABS: MANUAL DIFF FLAG NO
[2024-01-31 06:54] LABS: Basophils Absolute Auto 0.1 X10*3/uL (0.0-0.2); Basophils Percent Auto 0.6 % (0-2); Eosinophils Absolute Auto 0.2 X10*3/uL (0.0-0.4); Eosinophils Percent Auto 1.6 % (0-4); Hematocrit 33.9 % (37.0-47.0); Hemoglobin 10.5 g/dl (12.0-16.0); Imm Gran Abs Auto 0.05 X10*3/uL (0.00-0.03); Imm Gran Pct Auto 0.4 % (0.0-0.4); Lymphocytes Absolute Auto 3.1 X10*3/uL (1.2-4.9); Lymphocytes Percent Auto 24.6 % (20-40); Mean Corpuscular Hemoglobin 24.4 pg (27.0-33.0); Mean Corpuscular Volume 78.7 fL (80.0-98.0); Mean Platelet Volume 10.4 fL (9.4-12.3); Monocytes Absolute Auto 1.5 X10*3/uL (0.1-1.2); Monocytes Percent Auto 11.6 % (2-11); Neutrophils Absolute Auto 7.7 x10*3/uL (2.0-8.3); Neutrophils Percent Auto 61.2 % (45-73); Platelet Count 342 X10*3/uL (160-400); Red Blood Count 4.31 X10*6/uL (4.20-5.50); Red Cell Distribution Width 13.4 % (11.0-16.0); White Blood Count 12.5 X10*3/uL (4.8-10.8)
[2024-01-31 06:58] LABS: Anion Gap 15 (12-20); Blood Urea Nitrogen 17 mg/dL (9-16); Calcium 9.6 mg/dL (8.4-10.2); Carbon Dioxide 31 mmol/L (22-29); Chloride 102 mmol/L (96-108); Creatinine Clr Calc Pharmacy 35.4; Estimated Glomerular Filt Rate 44; Glucose Random 87 mg/dL (60-115); Magnesium 1.5 mg/dL (1.6-2.6); Potassium 3.9 mmol/L (3.3-5.1); Sodium 144 mmol/L (135-145)
[2024-01-31 07:11] LABS: Procalcitonin 0.03 ng/mL
[2024-01-31 07:27] LABS: Glucose, Whole Blood 82 mg/dL (60-115)
[2024-01-31] MEDS: Apixaban 5 MG TABLET PO ×2 (07:54→20:55)
[2024-01-31] MEDS: Furosemide 40 MG/4 ML VIAL IVPUSH ×2 (07:56→17:18)
[2024-01-31] MEDS: Potassium Chloride Packet 20 MEQ PACKET 40 MEQ PO (07:56)
[2024-01-31] MEDS: 0.9 % Sodium Chloride Flush 3 ML SYRINGE IVFLUSH ×3 (07:59→20:54)
[2024-01-31] MEDS: Magnesium Sulfate/H2O 2 GM/50 ML PIGGYBACK IV (08:02)
--- NOTE | 2024-01-31 09:21 | PHA.MEDREC ---
Pharmacy Consult ? Medication Reconciliation Pharmacy has completed the medication reconciliation. Utilized conference interpreter services. Patient had all Rx papers with her.
--- NOTE | 2024-01-31 10:46 | MHC.CM.PN ---
IMM 01/30. This CM met with pt with the assistance of a asl interpreter. Pt reports she lives alone, receives [employer] services 13 hours/week. Pt uses a walker. Pts daughter will transport her home. Pt states she has a HCP, it is her daughter and sister, a copy was requested. PCP: Cordelia PATIÑO
--- NOTE | 2024-01-31 10:51 | P.CONCA_ITS ---
History of Present Illness History of Present Illness Date of Service: 01/31/24 Requesting physician: Reji Landon Consult reason: congestive heart failure Chief complaint: Acute on chronic systolic CHF Narrative: I was consulted to see Brie in cardiology consultation today. She usually follows up with [facility] cardiology for heart failure care. She has prior history of heart failure with reduced ejection fraction for 14 years, [place] ICD placement with recent pulse generator change, insulin-requiring diabetes, hypertension hyperlipidemia. She was in her usual state of health and lives alone and is able to maintain activity with NYHA class 2 symptoms. Developed sudden-onset shortness of breath associated with chest discomfort 5/10. She came to the hospital was noted to be in decompensated congestive heart failure with BNP in the range of 1522. Her troponins are negative. EKG shows intermittent left bundle-branch block. Her viral panel is negative. Chest CTA consistent with mild pulmonary edema. This morning she says she feels well. As per the nursing staff she has been diuresing well as well. She denies any change in his medications. Has been taking all medications religiously. Also denies any salt loading. Denies any palpitations, lightheadedness, syncope. Denies any exertional chest pain recently. She as per her, has most likely nonischemic cardiomyopathy. Review of Systems 2 Constitutional: Constitutional: Reports no additional constitutional complaints Eyes: Eyes: Reports no additional eye complaints Cardiovascular: Cardiovascular: Reports chest pain, Denies lightheadedness, Denies Loss of Consciousness, Denies palpitations, Reports dyspnea and Reports other (No ICD discharge) Respiratory: Respiratory: Denies cough and Reports dyspnea Gastrointestinal: Gastrointestinal: Reports no additional gastrointestinal complaints Genitourinary: Genitourinary: Reports no additional female genitourinary complaints Musculoskeletal: Musculoskeletal: Reports no additional musculoskeletal complaints Neurologic: Reports system reviewed and no additional complaints, except as documented Psychiatric: Psychiatric: Reports no additional psychiatric complaints Endocrine: Endocrine: Denies palpitations PMFSH Past Medical History Medical History CHF (congestive heart failure) Hypoglycemia unawareness associated with type 2 diabetes mellitus Vitamin D deficiency Diabetic neuropathy associated with type 2 diabetes mellitus CKD (chronic kidney disease) stage 3, GFR 30-59 ml/min Hypertension Dyslipidemia [facility] (current) use of insulin Non-toxic multinodular goiter Diabetes type 2, uncontrolled Family History Family History Father Alcoholism Diabetes Mother Arthritis Hypertension Surgical History Surgical History Hx of biopsy AICD (automatic cardioverter/defibrillator) present Hx of appendectomy Hx of hysterectomy Social History Social History Household Members: None Housing: Apartment Unable to assess alcohol history related to: Unknown Alcohol intake: current Alcohol intake frequency: does not drink Patient Tobacco Use Status: Never used Tobacco service: No Meds Allergies Allergy/AdvReac Type Severity Reaction Status Date / Time egg [EGG] Allergy Intermediate RASH Verified 01/30/24 15:15 Fish Containing Products Allergy Intermediate RASH Verified 01/30/24 15:15 oxycodone [OXYCODONE] Allergy Intermediate RASH Verified 01/30/24 15:15 acetaminophen [From PERCOCET] Allergy Unknown RASH/ITCHIN Verified 01/30/24 15:15 G codeine [CODEINE] Allergy Unknown ITCHING Verified 01/30/24 15:15 hydrocodone [From VICODIN] Allergy Unknown UNKNOWN Verified 01/30/24 15:15 lisinopril [LISINOPRIL] Allergy Unknown UNKNOWN Verified 01/30/24 15:15 metoclopramide [From REGLAN] Allergy Unknown UNKNOWN Verified 01/30/24 15:15 naproxen [Naprosyn] Allergy Unknown Unknown Verified 01/30/24 15:15 tramadol Allergy Unknown Unknown Verified 01/30/24 15:15 Codeine Sulfate Allergy Unknown Unknown Uncoded 01/30/24 15:15 Percocet Allergy Unknown Unknown Uncoded 01/30/24 15:15 Vicodin Allergy Unknown Unknown Uncoded 01/30/24 15:15 Active Medications: Current Medications Acetaminophen (Acetaminophen 325 Mg Tablet) 975 mg PO Q6H PRN PRN Reason: Pain, Mild (Pain Scale 1-3), fever or headache Last Admin: 01/31/24 03:49 Dose: 975 mg Allopurinol (Allopurinol 100 Mg Tablet) 100 mg PO DAILY [facility] Apixaban (Apixaban 5 Mg Tablet) 5 mg PO BID MIRANDA Last Admin: 01/31/24 07:54 Dose: 5 mg Aspirin (Aspirin Enteric Coated 81 Mg Tablet.) 81 mg PO DAILY [facility] Atorvastatin Calcium (Atorvastatin Calcium 40 Mg Tablet) 40 mg PO DAILY [facility] Carvedilol (Carvedilol 12.5 Mg Tablet) 12.5 mg PO BID [facility]; Protocol Fluticasone Propionate (Fluticasone Propionate Nasal 16 Gm [place]) 1 spray NOSTRIL-B DAILY PRN PRN Reason: allergies Furosemide (Furosemide 40 Mg/4 Ml Vial) 40 mg IVPUSH BID@0900,1800 [facility]; Protocol Last Admin: 01/31/24 07:56 Dose: 40 mg Gabapentin (Gabapentin 600 Mg Tablet) 600 mg PO TID [facility] Glucose (Glucose Gel 15 Gm Gel..Gram.) 15 gm PO Q15M PRN; Protocol PRN Reason: per Hypoglycemia Standing Ord. Dextrose (D10) 250 mls @ 750 mls/hr IV Q15M PRN; Protocol PRN Reason: per Hypoglycemia Standing Ord. Insulin Glargine (Insulin Glargine,Hum.Rec.Anlog 100 Unit/Ml 10 Ml Vial) 8 unit SUBCUT BEDTIME [facility] Insulin Human Lispro (Insulin Lispro 100 Unit/Ml 3 Ml Vial) 0 unit SUBCUT QIDACHS [facility]; Protocol Last Admin: 01/31/24 07:34 Dose: Not Given Loratadine (Loratadine 10 Mg Tablet) 10 mg PO DAILY PRN PRN Reason: Allergy Symptoms Melatonin (Melatonin 3 Mg Tablet) 6 mg PO BEDTIME PRN PRN Reason: Insomnia Methocarbamol (Methocarbamol 750 Mg Tablet) 750 mg PO BID PRN PRN Reason: Muscle Spasm Multivitamins/Vitamin C (Multivitamin Tablet) 1 tab PO DAILY [facility] Non-Formulary Medication (Diclofenac Sodium) 1 each TOPICAL QID PRN PRN Reason: Pain Non-Formulary Medication (Linagliptin [Tradjenta]) 5 mg PO DAILY [facility] Omeprazole (Omeprazole 20 Mg Capsule.) 20 mg PO DAILY@0630 [facility] Potassium Chloride (Potassium Chloride Packet 20 Meq Packet) 40 meq PO DAILY [facility] Last Admin: 01/31/24 07:56 Dose: 40 meq Prednisone (Prednisone 10 Mg Tablet) 10 mg PO DAILY [facility] Stop: 02/02/24 09:01 Silver Sulfadiazine (Silver Sulfadiazine 1 % Cream 20 Gm Tube) 1 appl TOPICAL DAILY PRN PRN Reason: ingrown nail Sodium Chloride (0.9 % Sodium Chloride Flush 3 Ml Syringe) 3 ml IVFLUSH QSHIFT [facility] Last Admin: 01/31/24 07:59 Dose: 3 ml Triamcinolone Acetonide (Triamcinolone Acet 0.5 % Cream 15 Gm Tube) 1 appl TOPICAL BID PRN; Protocol PRN Reason: flares Vitamin D (Cholecalciferol (Vitamin D3) 25 Mcg Tablet) 50 mcg PO DAILY [facility] Zolpidem Tartrate (Zolpidem Tartrate 5 Mg Tablet) 5 mg PO BEDTIME PRN PRN Reason: Insomnia Home Medications ?Medication ?Instructions ?Recorded ?Confirmed ?Last Taken ?Type aspirin 81 mg tablet,delayed 81 mg PO DAILY 06/04/20 01/31/24 01/30/24 09:00 History release carvedilol 25 mg tablet 25 mg PO BID 06/04/20 01/31/24 01/30/24 09:00 History cholecalciferol (vitamin D3) 50 50 mcg PO DAILY 06/04/20 01/31/24 01/30/24 09:00 History mcg (2,000 unit) capsule gabapentin 600 mg tablet 600 mg PO TID 06/04/20 01/31/24 01/30/24 09:00 History loratadine 10 mg tablet 10 mg PO DAILY PRN Allergy Symptoms 06/04/20 01/31/24 Unknown History methocarbamol 750 mg tablet 750 mg PO BID PRN Muscle Spasm 06/04/20 01/31/24 Unknown History omeprazole 10 mg capsule,delayed 10 mg PO DAILY@0630 06/04/20 01/31/24 01/30/24 07:00 History release zolpidem 5 mg tablet 5 mg PO BEDTIME PRN Insomnia 06/04/20 01/31/24 Unknown History furosemide 40 mg tablet 40 mg PO DAILY 09/24/20 01/31/24 01/30/24 09:00 History apixaban 5 mg tablet (Eliquis) 5 mg PO BID 01/05/23 01/31/24 01/30/24 09:00 History diclofenac sodium 1 % topical gel 1 ea topical QID PRN Pain 01/05/23 01/31/24 Unknown History fluticasone propionate 50 50 mcg intranasal DAILY PRN 01/05/23 01/31/24 Unknown History mcg/actuation nasal allergies spray,suspension triamcinolone acetonide 0.5 % 1 appl topical BID PRN flares 01/05/23 01/31/24 Unknown History topical cream sacubitril 97 mg-valsartan 103 mg 1 tab PO BID 12/08/23 01/31/24 01/30/24 09:00 History tablet (Entresto) allopurinol 100 mg tablet 100 mg PO DAILY 01/26/24 01/31/24 01/30/24 09:00 History insulin glargine 100 unit/mL (3 8 unit subcut BEDTIME 01/31/24 01/31/24 Unknown History mL) subcutaneous pen (Lantus Solostar U-100 Insulin) multivitamin with folic acid 400 1 tab PO DAILY 01/31/24 01/31/24 01/30/24 09:00 History mcg tablet (Daily-Mallika (with folic acid)) silver sulfadiazine 1 % topical 1 appl topical DAILY PRN ingrown 01/31/24 01/31/24 Unknown History cream nail Physical Exam 2 Vital Signs: Vital Signs: Last Vital Signs Temp 97.0 F 01/31/24 08:00 Pulse 76 01/31/24 08:00 Resp 18 01/31/24 08:00 BP 104/59 L 01/31/24 08:00 Pulse Ox 94 01/31/24 08:00 O2 Del Method Room Air 01/31/24 08:00 O2 Flow Rate 2 01/30/24 19:23 Oxygen Flow Rate 2 01/30/24 15:13 BMI result Body Mass Index 26.9 Const: General: cooperative, comfortable, no acute distress, alert and awake Nutritional Appearance: average body habitus Orientation/consciousness: p atient oriented x3 HEENT: Head: Yes normocephalic and Yes atraumatic Neck: Neck: Yes trachea midline, Yes supple and Yes no JVD Resp: Effort & Inspection: normal respiratory effort Auscultation: breath sounds absent bilateral (bases) Cardio: Rate: regular rate Rhythm: regular rhythm Heart sounds: S1 normal heart sound present, S2 normal heart sound present, no click, no gallops and no murmurs GI: Auscultation: normal bowel sounds Skin: General skin exam: no rashes or lesions noted Neuro: General: patient oriented x3 and no focal motor deficits Extrem: General: Yes no clubbing, cyanosis or edema Objective Labs and Meds 01/31/24 06:01 01/31/24 06:01 Lab results: Laboratory Results - last 24 hr 01/30/24 01/30/24 01/30/24 15:39 16:44 16:55 WBC 16.3 H RBC 4.25 Hgb 10.5 L Hct 33.8 L MCV 79.5 L MCH 24.7 L MCHC 31.1 RDW 13.5 Plt Count 318 MPV 9.9 Immature Gran % (Auto) 0.6 H Neut % (Auto) 68.6 Lymph % (Auto) 18.9 L Smith % (Auto) 10.2 Eos % (Auto) 1.1 Baso % (Auto) 0.6 Lymph # (Auto) 3.1 Smith # (Auto) 1.7 H Eos # (Auto) 0.2 Baso # (Auto) 0.1 Abs Immat Gran (auto) 0.09 H Absolute Neuts (auto) 11.2 H Absolute Nucleated RBC 0.000 Nucleated RBC % (auto) 0.0 Smear Tech's Comments VERIFIED PT 18.7 H INR 1.5 H Sodium 142 Potassium 3.2 L Chloride 105 Carbon Dioxide 26 Anion Gap 14 BUN 17 H Creatinine 1.22 Estim Creat Clear Calc 36.6 Estimated GFR 44 POC Glucose Random Glucose 106 Lactic Acid 0.9 Calcium 9.1 Magnesium 1.6 Total Bilirubin 0.4 AST 19 ALT 18 Alkaline Phosphatase 64 Troponin I High Sens 9.7 D B-Natriuretic Peptide 1522 H Total Protein 6.3 L Albumin 3.4 L Procalcitonin Influenza Type A (PCR) NEGATIVE Influenza Type B (PCR) NEGATIVE RSV RNA Qual (PCR) NEGATIVE SARS-CoV-2 RNA (RT-PCR) NEGATIVE 01/30/24 01/30/24 01/31/24 20:54 22:41 06:01 WBC 12.5 H RBC 4.31 Hgb 10.5 L Hct 33.9 L MCV 78.7 L MCH 24.4 L MCHC 31.0 RDW 13.4 Plt Count 342 MPV 10.4 Immature Gran % (Auto) 0.4 Neut % (Auto) 61.2 Lymph % (Auto) 24.6 Smith % (Auto) 11.6 H Eos % (Auto) 1.6 Baso % (Auto) 0.6 Lymph # (Auto) 3.1 Smith # (Auto) 1.5 H Eos # (Auto) 0.2 Baso # (Auto) 0.1 Abs Immat Gran (auto) 0.05 H Absolute Neuts (auto) 7.7 Absolute Nucleated RBC 0.000 Nucleated RBC % (auto) 0.0 Smear Tech's Comments PT INR Sodium 144 Potassium 3.9 D Chloride 102 Carbon Dioxide 31 H Anion Gap 15 BUN 17 H Creatinine 1.22 Estim Creat Clear Calc 35.4 Estimated GFR 44 POC Glucose 107 Random Glucose 87 Lactic Acid Calcium 9.6 Magnesium 1.5 L Total Bilirubin AST ALT Alkaline Phosphatase Troponin I High Sens 12.5 B-Natriuretic Peptide Total Protein Albumin Procalcitonin 0.03 Influenza Type A (PCR) Influenza Type B (PCR) RSV RNA Qual (PCR) SARS-CoV-2 RNA (RT-PCR) 01/31/24 07:16 WBC RBC Hgb Hct MCV MCH MCHC RDW Plt Count MPV Immature Gran % (Auto) Neut % (Auto) Lymph % (Auto) Smith % (Auto) Eos % (Auto) Baso % (Auto) Lymph # (Auto) Smith # (Auto) Eos # (Auto) Baso # (Auto) Abs Immat Gran (auto) Absolute Neuts (auto) Absolute Nucleated RBC Nucleated RBC % (auto) Smear Tech's Comments PT INR Sodium Potassium Chloride Carbon Dioxide Anion Gap BUN Creatinine Estim Creat Clear Calc Estimated GFR POC Glucose 82 Random Glucose Lactic Acid Calcium Magnesium Total Bilirubin AST ALT Alkaline Phosphatase Troponin I High Sens B-Natriuretic Peptide Total Protein Albumin Procalcitonin Influenza Type A (PCR) Influenza Type B (PCR) RSV RNA Qual (PCR) SARS-CoV-2 RNA (RT-PCR) Imaging Radiologist's impression: Impressions Chest X-Ray 01/30/24 16:21 IMPRESSION: New hazy right basilar and left retrocardiac opacities which may be secondary to infectious or inflammatory etiology. Mild central vascular congestion. Chest CTA 01/30/24 19:33 IMPRESSION: 1. No pulmonary emboli. 2. Mild pulmonary edema with small pleural effusions bilaterally. 3. There is a focal pericardial/anterior mediastinal simple fluid attenuating lesion which measures 6 x 4.7 x 6.7 cm. This could represent a pericardial cyst. 4. There is reflux of contrast into the hepatic veins to suggest elevated right heart pressures. VTE: negative. Assessment and Plan (1) Acute CHF: Status: Acute Acute decompensated congestive heart failure in this elderly female with longstanding history of heart failure with reduced ejection fraction. Question worsening LV ejection fraction. She also has baseline incomplete to complete left bundle-branch block intermittent. Would obtain an echocardiogram to assess LV ejection fraction. If she has significant LV systolic dysfunction may benefit from cardiac resynchronization therapy. She is otherwise on max dose of carvedilol and Entresto therapy. Tolerating well. Will also consider adding Jardiance 10 mg to regimen for neurohormonal modulation as well as spironolactone 12.5 mg to her regimen. Follow-up electrolytes. Replace magnesium aggressively. Follow-up BMP and BNP tomorrow. Continue 1 more day of diuresis. Strict intake and output chart needs to be pursued. Will follow with you. Procedures Date of Service Date of Service: 01/31/24
[2024-01-31 10:57] LABS: Glucose, Whole Blood 170 mg/dL (60-115)
--- NOTE | 2024-01-31 11:17 | HO.PM.IMPN ---
Subjective Subjective Date of Service: 01/31/24 Interval History: She presented with shortness of breath and admitted for heart failure exacerbatin She feels much better this morning, O2 sat is nromal, no sob, lungs clear, BP on lower side. Physical Exam Vital Signs: Vital Signs: Last Vital Signs Temp 97.0 F 01/31/24 08:00 Pulse 76 01/31/24 08:00 Resp 18 01/31/24 08:00 BP 104/59 L 01/31/24 08:00 Pulse Ox 94 01/31/24 08:00 O2 Del Method Room Air 01/31/24 08:00 O2 Flow Rate 2 01/30/24 19:23 Oxygen Flow Rate 2 01/30/24 15:13 BMI result Body Mass Index 26.9 General: AO X 3, no acute distress Resp: CTA bilateral CVS: S1,S2,RRR GI: +BS, NT, no distention Skin: No rash Neuro: motor grossly intact Psych: appropriate affect Objective Data Active Medications Acetaminophen (Acetaminophen 325 Mg Tablet) 975 mg PO Q6H PRN PRN Reason: Pain, Mild (Pain Scale 1-3), fever or headache Last Admin: 01/31/24 03:49 Dose: 975 mg Documented By: SELMA Allopurinol (Allopurinol 100 Mg Tablet) 100 mg PO DAILY REPLACED BY [facility] Apixaban (Apixaban 5 Mg Tablet) 5 mg PO BID REPLACED BY [facility] Last Admin: 01/31/24 07:54 Dose: 5 mg Documented By: ANNALEE Aspirin (Aspirin Enteric Coated 81 Mg Tablet.) 81 mg PO DAILY REPLACED BY [facility] Atorvastatin Calcium (Atorvastatin Calcium 40 Mg Tablet) 40 mg PO DAILY REPLACED BY [facility] Carvedilol (Carvedilol 12.5 Mg Tablet) 12.5 mg PO BID [facility]PLACED BY [facility]; Protocol Fluticasone Propionate (Fluticasone Propionate Nasal 16 Gm [place]) 1 spray NOSTRIL-B DAILY PRN PRN Reason: allergies Furosemide (Furosemide 40 Mg/4 Ml Vial) 40 mg IVPUSH BID@0900,1800 REPLACED BY [facility]; Protocol Last Admin: 01/31/24 07:56 Dose: 40 mg Documented By: ANNALEE Gabapentin (Gabapentin 600 Mg Tablet) 600 mg PO TID REPLACED BY [facility] Glucose (Glucose Gel 15 Gm Gel..Gram.) 15 gm PO Q15M PRN; Protocol PRN Reason: per Hypoglycemia Standing Ord. Dextrose (D10) 250 mls @ 750 mls/hr IV Q15M PRN; Protocol PRN Reason: per Hypoglycemia Standing Ord. Insulin Glargine (Insulin Glargine,Hum.Rec.Anlog 100 Unit/Ml 10 Ml Vial) 8 unit SUBCUT BEDTIME REPLACED BY [facility] Insulin Human Lispro (Insulin Lispro 100 Unit/Ml 3 Ml Vial) 0 unit SUBCUT QIDACHS REPLACED BY [facility]; Protocol Last Admin: 01/31/24 07:34 Dose: Not Given Documented By: ANNALEE Non-Admin Reason: No Insulin Coverage Loratadine (Loratadine 10 Mg Tablet) 10 mg PO DAILY PRN PRN Reason: Allergy Symptoms Melatonin (Melatonin 3 Mg Tablet) 6 mg PO BEDTIME PRN PRN Reason: Insomnia Methocarbamol (Methocarbamol 750 Mg Tablet) 750 mg PO BID PRN PRN Reason: Muscle Spasm Multivitamins/Vitamin C (Multivitamin Tablet) 1 tab PO DAILY REPLACED BY [facility] Non-Formulary Medication (Diclofenac Sodium) 1 each TOPICAL QID PRN PRN Reason: Pain Non-Formulary Medication (Linagliptin [Tradjenta]) 5 mg PO DAILY REPLACED BY [facility] Omeprazole (Omeprazole 20 Mg Capsule.Dr) 20 mg PO DAILY@629 REPLACED BY [facility] Potassium Chloride (Potassium Chloride Packet 20 Meq Packet) 40 meq PO DAILY REPLACED BY [facility] Last Admin: 01/31/24 07:56 Dose: 40 meq Documented By: ANNALEE Prednisone (Prednisone 10 Mg Tablet) 10 mg PO DAILY REPLACED BY [facility] Stop: 02/02/24 09:01 Silver Sulfadiazine (Silver Sulfadiazine 1 % Cream 20 Gm Tube) 1 appl TOPICAL DAILY PRN PRN Reason: ingrown nail Sodium Chloride (0.9 % Sodium Chloride Flush 3 Ml Syringe) 3 ml IVFLUSH QSHIFT REPLACED BY [facility] Last Admin: 01/31/24 07:59 Dose: 3 ml Documented By: ANNALEE Triamcinolone Acetonide (Triamcinolone Acet 0.5 % Cream 15 Gm Tube) 1 appl TOPICAL BID PRN; Protocol PRN Reason: flares Vitamin D (Cholecalciferol (Vitamin D3) 25 Mcg Tablet) 50 mcg PO DAILY REPLACED BY [facility] Zolpidem Tartrate (Zolpidem Tartrate 5 Mg Tablet) 5 mg PO BEDTIME PRN PRN Reason: Insomnia Labs 01/31/24 06:01 01/31/24 06:01 Labs: Laboratory Results - last 24 hr 01/30/24 01/30/24 01/30/24 15:39 16:44 16:55 MCV 79.5 L MCH 24.7 L MCHC 31.1 RDW 13.5 Plt Count 318 MPV 9.9 Immature Gran % (Auto) 0.6 H Neut % (Auto) 68.6 Lymph % (Auto) 18.9 L [place] % (Auto) 10.2 Eos % (Auto) 1.1 Baso % (Auto) 0.6 Lymph # (Auto) 3.1 [place] # (Auto) 1.7 H Eos # (Auto) 0.2 Baso # (Auto) 0.1 Abs Immat Gran (auto) 0.09 H Absolute Neuts (auto) 11.2 H Absolute Nucleated RBC 0.000 Nucleated RBC % (auto) 0.0 Smear Tech's Comments VERIFIED PT 18.7 H INR 1.5 H Anion Gap 14 Estim Creat Clear Calc 36.6 Estimated GFR 44 POC Glucose Random Glucose 106 Lactic Acid 0.9 Calcium 9.1 Magnesium 1.6 Total Bilirubin 0.4 AST 19 ALT 18 Alkaline Phosphatase 64 Troponin I High Sens 9.7 D B-Natriuretic Peptide 1522 H Total Protein 6.3 L Albumin 3.4 L Procalcitonin Influenza Type A (PCR) NEGATIVE Influenza Type B (PCR) NEGATIVE RSV RNA Qual (PCR) NEGATIVE SARS-CoV-2 RNA (RT-PCR) NEGATIVE 01/30/24 01/30/24 01/31/24 20:54 22:41 06:01 MCV 78.7 L MCH 24.4 L MCHC 31.0 RDW 13.4 Plt Count 342 MPV 10.4 Immature Gran % (Auto) 0.4 Neut % (Auto) 61.2 Lymph % (Auto) 24.6 [place] % (Auto) 11.6 H Eos % (Auto) 1.6 Baso % (Auto) 0.6 Lymph # (Auto) 3.1 [place] # (Auto) 1.5 H Eos # (Auto) 0.2 Baso # (Auto) 0.1 Abs Immat Gran (auto) 0.05 H Absolute Neuts (auto) 7.7 Absolute Nucleated RBC 0.000 Nucleated RBC % (auto) 0.0 Smear Tech's Comments PT INR Anion Gap 15 Estim Creat Clear Calc 35.4 Estimated GFR 44 POC Glucose 107 Random Glucose 87 Lactic Acid Calcium 9.6 Magnesium 1.5 L Total Bilirubin AST ALT Alkaline Phosphatase Troponin I High Sens 12.5 B-Natriuretic Peptide Total Protein Albumin Procalcitonin 0.03 Influenza Type A (PCR) Influenza Type B (PCR) RSV RNA Qual (PCR) SARS-CoV-2 RNA (RT-PCR) 01/31/24 01/31/24 07:16 10:46 MCV MCH MCHC RDW Plt Count MPV Immature Gran % (Auto) Neut % (Auto) Lymph % (Auto) [place] % (Auto) Eos % (Auto) Baso % (Auto) Lymph # (Auto) [place] # (Auto) Eos # (Auto) Baso # (Auto) Abs Immat Gran (auto) Absolute Neuts (auto) Absolute Nucleated RBC Nucleated RBC % (auto) Smear Tech's Comments PT INR Anion Gap Estim Creat Clear Calc Estimated GFR POC Glucose 82 170 H Random Glucose Lactic Acid Calcium Magnesium Total Bilirubin AST ALT Alkaline Phosphatase Troponin I High Sens B-Natriuretic Peptide Total Protein Albumin Procalcitonin Influenza Type A (PCR) Influenza Type B (PCR) RSV RNA Qual (PCR) SARS-CoV-2 RNA (RT-PCR) Assessment and Plan (1) Pericardial cyst: Status: Acute (2) Acute CHF: Status: Acute (3) AICD (automatic cardioverter/defibrillator) present: Status: Acute Plan 68/F with DM, HLD, CKD 3, gout, HFrEF here with Shortness on breath likely multifactorial: Acute on chronic systolic congestive heart failure associated with small bilateral pleural effusions + pericardial cyst. No evidence of PNA. Presently without SOB HFrEF -clinically euvolemic. Stop IV Lasix, resume PO tomorrow. continue Coreg at half dose given low BP, entresto on hold d/t low BP and restart when BP improves. Will add Jardiance and Aldactone as recommended by cardiology once BP improves . Chest pain, likely secondary to above. resolved. Continue to monitor troponin. Continue baby aspirin and statin. Type 2 diabetes mellitus. BG checks before meals at bedtime. Lantus, linagliptin and insulin sliding scale. Diabetic diet. Hyperlipidemia. Continue statin. Essential hypertension. Continue carvedilol and Entresto once BP improves. Chronic AFib. Continue carvedilol and Eliquis. CKD, stage 3B. Renal function is at baseline. Avoid nephrotoxic agents. Continue follow-up as an outpatient with Nephrology. Gout. Continue allopurinol. s/p AICD placement, battery recently replaced Hx nontoxic multinodular goiter. S/p right lobectomy. Euthyroid. Continue follow-up as an outpatient with endocrinology. DVT prophylaxis: Eliquis. Code status: Full need for inpt: IV lasix for acute heart failure Quality Stroke Does the patient have a stroke diagnosis?: No VTE Prior VTE?: No VTE Risk Level:: Medical - moderate - high VTE Device Contraindication: Treatment Not Indicated VTE Drug Contraindication: N/A - Med Ordered
[2024-01-31] MEDS: predniSONE 10 MG TABLET PO (11:27)
[2024-01-31] MEDS: Cholecalciferol (Vitamin D3) 25 MCG TABLET 50 MCG PO (11:27)
[2024-01-31] MEDS: allopurinoL 100 MG TABLET PO (11:27)
[2024-01-31] MEDS: Aspirin Enteric Coated 81 MG TABLET.DR PO (11:27)
[2024-01-31] MEDS: Gabapentin 600 MG TABLET PO ×3 (11:27→20:55)
[2024-01-31] MEDS: Atorvastatin Calcium 40 MG TABLET PO (11:27)
[2024-01-31] MEDS: Multivitamin TABLET 1 TAB PO (11:27)
[2024-01-31] MEDS: Insulin Lispro 100 UNIT/ML 3 ML VIAL SUBCUT ×3 (11:28→20:54)
[2024-01-31 16:05] LABS: Glucose, Whole Blood 163 mg/dL (60-115)
[2024-01-31 19:55] LABS: Glucose, Whole Blood 200 mg/dL (60-115)
[2024-01-31] MEDS: Insulin Glargine,Hum.rec.anlog 100 UNIT/ML 10 ML VIAL 8 UNIT SUBCUT (20:54)
[2024-01-31] MEDS: carvediloL 12.5 MG TABLET PO (20:55)
[2024-01-31] MEDS: Melatonin 3 MG TABLET 6 MG PO (20:55)
[2024-01-31] MEDS: Zolpidem Tartrate 5 MG TABLET PO (20:55)
[2024-02-01] VITALS (9 sets, daily range): BP systolic 76–168; BP diastolic 44–56; PULSE 63–88; RESP 16–20; TEMP 36.2–36.7; O2SAT 94–98
--- NOTE | 2024-02-01 03:23 | PC.NURSE ---
Pt AOx3, able to make needs known. Danish speaking primarily. Independent in room. No c/o pain; on RA, fine crackles at base of lungs (receiving lasix BID). Call mesa within reach.
[2024-02-01] MEDS: Omeprazole 20 MG CAPSULE.DR PO (05:56)
[2024-02-01 06:50] LABS: B Type Natriuretic Peptide 732 pg/mL (<100)
[2024-02-01 07:36] LABS: Glucose, Whole Blood 112 mg/dL (60-115)
[2024-02-01 08:38] LABS: Anion Gap 14 (12-20); Blood Urea Nitrogen 20 mg/dL (9-16); Calcium 9.2 mg/dL (8.4-10.2); Carbon Dioxide 30 mmol/L (22-29); Chloride 101 mmol/L (96-108); Creatinine Clr Calc Pharmacy 27.3; Estimated Glomerular Filt Rate 33; Glucose Random 109 mg/dL (60-115); Potassium 4.3 mmol/L (3.3-5.1); Sodium 141 mmol/L (135-145)
[2024-02-01] MEDS: Aspirin Enteric Coated 81 MG TABLET.DR PO (09:04)
[2024-02-01] MEDS: Multivitamin TABLET 1 TAB PO (09:04)
[2024-02-01] MEDS: Atorvastatin Calcium 40 MG TABLET PO (09:04)
[2024-02-01] MEDS: 0.9 % Sodium Chloride Flush 3 ML SYRINGE IVFLUSH ×2 (09:05→16:34)
[2024-02-01] MEDS: Cholecalciferol (Vitamin D3) 25 MCG TABLET 50 MCG PO (09:05)
[2024-02-01] MEDS: allopurinoL 100 MG TABLET PO (09:05)
[2024-02-01] MEDS: Apixaban 5 MG TABLET PO ×2 (09:05→20:33)
[2024-02-01] MEDS: Furosemide 40 MG/4 ML VIAL IVPUSH (09:05)
[2024-02-01] MEDS: predniSONE 10 MG TABLET PO (09:05)
[2024-02-01] MEDS: carvediloL 12.5 MG TABLET PO ×2 (09:05→20:33)
[2024-02-01] MEDS: Gabapentin 600 MG TABLET PO ×3 (09:05→20:33)
[2024-02-01] MEDS: Potassium Chloride ER 20 MEQ TAB.ER.PRT 40 MEQ PO (09:11)
--- NOTE | 2024-02-01 09:40 | P.PNCA_ITS ---
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 She states she is doing okay. Review of Systems Review of Systems Yes all other systems are reviewed and are negative Constitutional: Reports as per HPI and Reports no additional constitutional complaints Eyes: Reports as per HPI and Denies no additional eye complaints Denies system reviewed and no additional complaints, except as documented and Reports as per HPI Cardiovascular: Reports as per HPI, Reports no additional cardiovascular complaints, Denies acrocyanosis, Denies cool extremities, Denies chest pain, Denies leg edema, Denies lightheadedness, Denies palpitations and Denies dyspnea Respiratory: Reports as per HPI, Denies no additional respiratory complaints and Denies dyspnea Gastrointestinal: Reports as per HPI and Denies no additional gastrointestinal complaints Genitourinary: Reports as per HPI Musculoskeletal: Reports no additional musculoskeletal complaints and Reports as per HPI Skin/Breast: Reports system reviewed and no additional complaints, except as docu Reports system reviewed and no additional complaints, except as documented and Reports as per HPI Psychiatric: Reports no additional psychiatric complaints and Reports as per HPI Endocrine: Reports no additional endocrine complaints, Reports as per HPI and Denies palpitations Hematologic/Lymphatic: Reports no additional hematologic/lymphatic complaints and Reports as per HPI Allergic/Immunologic: Reports no additional allergic/immunologic complaints and Reports as per HPI Physical Exam Vital Signs: Last Vital Signs Temp 97.5 F 02/01/24 08:00 Pulse 88 02/01/24 08:00 Resp 18 02/01/24 08:00 BP 93/50 L 02/01/24 08:00 Pulse Ox 98 02/01/24 08:00 O2 Del Method Room Air 02/01/24 08:00 O2 Flow Rate 2 01/30/24 19:23 Oxygen Flow Rate 2 01/30/24 15:13 BMI result Body Mass Index 26.9 Const General: comfortable and no acute distress Orientation/consciousness: patient oriented x3 HEENT Other: Unremarkable Head: Yes normal to inspection Neck Neck: Yes normal visual inspection Chest Chest palpation & inspection: normal inspection of the chest Resp Auscultation: clear to auscultation bilaterally Cardio Palpation: normal PMI Heart sounds: S1 normal heart sound present, S2 normal heart sound present, no gallops, no murmurs and no rubs GI Palpation (GI): Soft to palpation Back/Spine/Pelvis Other: unremarkable Skin General skin exam: no rashes or lesions noted Neuro General: patient oriented x3 Extrem General: Yes normal to inspection Psych Mental Status: mental status grossly normal Objective Labs and Meds 01/31/24 06:01 02/01/24 08:07 Lab results: Laboratory Results - last 24 hr 01/31/24 01/31/24 01/31/24 10:46 15:58 19:49 Hold Purple Top Sodium Potassium Chloride Carbon Dioxide Anion Gap BUN Creatinine Estim Creat Clear Calc Estimated GFR POC Glucose 170 H 163 H 200 H Random Glucose Calcium B-Natriuretic Peptide 02/01/24 02/01/24 02/01/24 06:00 07:28 08:07 Hold Purple Top SEE NOTE Sodium 141 Potassium 4.3 Chloride 101 Carbon Dioxide 30 H Anion Gap 14 BUN 20 H Creatinine 1.58 H Estim Creat Clear Calc 27.3 Estimated GFR 33 POC Glucose 112 Random Glucose 109 Calcium 9.2 B-Natriuretic Peptide 732 H Progress Note: A&P Assessment and plan (1) Acute on chronic systolic congestive heart failure: Status: Acute (2) AICD (automatic cardioverter/defibrillator) present: Status: Acute Plan [facility] echocardiogram from November with LVEF of 20%. Severe global hypokinesis with regional variation. Trabeculated apex. No significant valvular issues. For meds, seems to be on carvedilol, Entresto. Clinically, euvolemic. Eventually, other medications like spironolactone/Jardiance or Farxiga to be added. Slight increase in renal parameters. May hold diuretics for a day or so. Time Spent With Patient Time: Total time managing care of this patient today 42 minutes. This includes time spent in review of chart, laboratory data, imaging studies, review of telemetry, counseling patient, discussion with hospitalist, RN, documentation, coordination of care. Progress Note: Quality Stroke Does the patient have a stroke diagnosis?: No Procedures Date of Service Date of Service: 02/01/24
--- NOTE | 2024-02-01 10:27 | MHC.CM.PN ---
Addendum entered by Terrie Carranza 02/01/24 10:29: IMM 01/31/24 Original Note: PER MD ROUNDS PATIENT IS READY TO DISCHARGE TODAY. [facility] WILL PROVIDE TRANSPORTATION HOME. [facility] [employer] WILL RESUME.
[2024-02-01 11:28] LABS: Glucose, Whole Blood 173 mg/dL (60-115)
[2024-02-01] MEDS: Insulin Lispro 100 UNIT/ML 3 ML VIAL SUBCUT ×2 (12:21→20:34)
--- NOTE | 2024-02-01 13:59 | HO.PM.IMPN ---
Subjective Subjective Date of Service: 02/01/24 Interval History: She is feeling much better, no shortness of breath. Blood pressure remains on low side Physical Exam Vital Signs: Vital Signs: Last Vital Signs Temp 97.5 F 02/01/24 11:40 Pulse 79 02/01/24 11:40 Resp 20 02/01/24 11:40 BP 92/50 L 02/01/24 11:40 Pulse Ox 98 02/01/24 11:40 O2 Del Method Room Air 02/01/24 11:40 O2 Flow Rate 2 01/30/24 19:23 Oxygen Flow Rate 2 01/30/24 15:13 BMI result Body Mass Index 26.9 Objective Data Active Medications Acetaminophen (Acetaminophen 325 Mg Tablet) 975 mg PO Q6H PRN PRN Reason: Pain, Mild (Pain Scale 1-3), fever or headache Last Admin: 01/31/24 03:49 Dose: 975 mg Documented By: SELMA Allopurinol (Allopurinol 100 Mg Tablet) 100 mg PO DAILY COUNTS INCLUDE 234 BEDS AT THE [facility] Last Admin: 02/01/24 09:05 Dose: 100 mg Documented By: FRANCISCA Apixaban (Apixaban 5 Mg Tablet) 5 mg PO BID COUNTS INCLUDE 234 BEDS AT THE [facility] Last Admin: 02/01/24 09:05 Dose: 5 mg Documented By: FRANCISCA Aspirin (Aspirin Enteric Coated 81 Mg Tablet.) 81 mg PO DAILY COUNTS INCLUDE 234 BEDS AT THE [facility] Last Admin: 02/01/24 09:04 Dose: 81 mg Documented By: FRANCISCA Atorvastatin Calcium (Atorvastatin Calcium 40 Mg Tablet) 40 mg PO DAILY COUNTS INCLUDE 234 BEDS AT THE [facility] Last Admin: 02/01/24 09:04 Dose: 40 mg Documented By: FRANCISCA Carvedilol (Carvedilol 12.5 Mg Tablet) 12.5 mg PO BID COUNTS INCLUDE 234 BEDS AT THE [facility]; Protocol Last Admin: 02/01/24 09:05 Dose: 12.5 mg Documented By: FRANCISCA Fluticasone Propionate (Fluticasone Propionate Nasal 16 Gm [place]) 1 spray NOSTRIL-B DAILY PRN PRN Reason: allergies Gabapentin (Gabapentin 600 Mg Tablet) 600 mg PO TID COUNTS INCLUDE 234 BEDS AT THE [facility] Last Admin: 02/01/24 09:05 Dose: 600 mg Documented By: FRANCISCA Glucose (Glucose Gel 15 Gm Gel..Gram.) 15 gm PO Q15M PRN; Protocol PRN Reason: per Hypoglycemia Standing Ord. Dextrose (D10) 250 mls @ 750 mls/hr IV Q15M PRN; Protocol PRN Reason: per Hypoglycemia Standing Ord. Insulin Glargine (Insulin Glargine,Hum.Rec.Anlog 100 Unit/Ml 10 Ml Vial) 8 unit SUBCUT BEDTIME COUNTS INCLUDE 234 BEDS AT THE [facility] Last Admin: 01/31/24 20:54 Dose: 8 unit Documented By: SAMANTHA Insulin Human Lispro (Insulin Lispro 100 Unit/Ml 3 Ml Vial) 0 unit SUBCUT QIDACHS COUNTS INCLUDE 234 BEDS AT THE [facility]; Protocol Last Admin: 02/01/24 12:21 Dose: 2 unit Documented By: FRANCISCA Loratadine (Loratadine 10 Mg Tablet) 10 mg PO DAILY PRN PRN Reason: Allergy Symptoms Melatonin (Melatonin 3 Mg Tablet) 6 mg PO BEDTIME PRN PRN Reason: Insomnia Last Admin: 01/31/24 20:55 Dose: 6 mg Documented By: SAMANTHA Methocarbamol (Methocarbamol 750 Mg Tablet) 750 mg PO BID PRN PRN Reason: Muscle Spasm Multivitamins/Vitamin C (Multivitamin Tablet) 1 tab PO DAILY COUNTS INCLUDE 234 BEDS AT THE [facility] Last Admin: 02/01/24 09:04 Dose: 1 tab Documented By: FRANCISCA Non-Formulary Medication (Diclofenac Sodium) 1 each TOPICAL QID PRN PRN Reason: Pain Non-Formulary Medication (Linagliptin [Tradjenta]) 5 mg PO DAILY COUNTS INCLUDE 234 BEDS AT THE [facility] Omeprazole (Omeprazole 20 Mg Capsule.Dr) 20 mg PO DAILY@0630 COUNTS INCLUDE 234 BEDS AT THE [facility] Last Admin: 02/01/24 05:56 Dose: 20 mg Documented By: SAMANTHA Potassium Chloride (Potassium Chloride Er 20 Meq Tab.Er.Prt) 40 meq PO DAILY COUNTS INCLUDE 234 BEDS AT THE [facility] Last Admin: 02/01/24 09:11 Dose: 40 meq Documented By: FRANCISCA Prednisone (Prednisone 10 Mg Tablet) 10 mg PO DAILY COUNTS INCLUDE 234 BEDS AT THE [facility] Stop: 02/02/24 09:01 Last Admin: 02/01/24 09:05 Dose: 10 mg Documented By: FRANCISCA Silver Sulfadiazine (Silver Sulfadiazine 1 % Cream 20 Gm Tube) 1 appl TOPICAL DAILY PRN PRN Reason: ingrown nail Sodium Chloride (0.9 % Sodium Chloride Flush 3 Ml Syringe) 3 ml IVFLUSH QSHIFT COUNTS INCLUDE 234 BEDS AT THE [facility] Last Admin: 02/01/24 09:05 Dose: 3 ml Documented By: FRANCISCA Triamcinolone Acetonide (Triamcinolone Acet 0.5 % Cream 15 Gm Tube) 1 appl TOPICAL BID PRN; Protocol PRN Reason: flares Vitamin D (Cholecalciferol (Vitamin D3) 25 Mcg Tablet) 50 mcg PO DAILY [facility] Last Admin: 02/01/24 09:05 Dose: 50 mcg Documented By: FRANCISCA Zolpidem Tartrate (Zolpidem Tartrate 5 Mg Tablet) 5 mg PO BEDTIME PRN PRN Reason: Insomnia Last Admin: 01/31/24 20:55 Dose: 5 mg Documented By: SAMANTHA Labs 01/31/24 06:01 02/01/24 08:07 Labs: Laboratory Results - last 24 hr 01/31/24 01/31/24 02/01/24 15:58 19:49 06:00 Hold Purple Top SEE NOTE Anion Gap Estim Creat Clear Calc Estimated GFR POC Glucose 163 H 200 H Random Glucose Calcium B-Natriuretic Peptide 732 H 02/01/24 02/01/24 02/01/24 07:28 08:07 11:21 Hold Purple Top Anion Gap 14 Estim Creat Clear Calc 27.3 Estimated GFR 33 POC Glucose 112 173 H Random Glucose 109 Calcium 9.2 B-Natriuretic Peptide Microbiology Microbiology Results: Microbiology 01/30/24 16:55 Blood Culture - Preliminary Blood - Venous No growth after 24 hours. 01/30/24 17:00 Blood Culture - Preliminary Blood - Venous No growth after 24 hours. Assessment and Plan (1) Pericardial cyst: Status: Acute (2) Acute CHF: Status: Acute (3) AICD (automatic cardioverter/defibrillator) present: Status: Acute Plan 68/F with DM, HLD, CKD 3, gout, HFrEF here with Shortness on breath likely multifactorial, likely from acute on chronic heart failure HFrEF -clinically euvolemic. Stop IV Lasix, resume PO tomorrow. continue Coreg at half dose (12.5) given low BP, entresto on hold d/t low BP and restart when BP improves. Will add Jardiance and Aldactone as recommended by cardiology once BP improves . Chest pain, likely secondary to above. resolved. Continue to monitor troponin. Continue baby aspirin and statin. Type 2 diabetes mellitus. BG checks before meals at bedtime. Lantus, linagliptin and insulin sliding scale. Diabetic diet. Hyperlipidemia. Continue statin. Essential hypertension. Continue carvedilol and Entresto once BP improves. Chronic AFib. Continue carvedilol and Eliquis. CKD, stage 3B. Renal function is at baseline. Avoid nephrotoxic agents. Continue follow-up as an outpatient with Nephrology. Gout. Continue allopurinol. s/p AICD placement, battery recently replaced Hx nontoxic multinodular goiter. S/p right lobectomy. Euthyroid. Continue follow-up as an outpatient with endocrinology. DVT prophylaxis: Eliquis. Code status: Full need for inpt: Monitoring blood pressure Quality Stroke Does the patient have a stroke diagnosis?: No VTE Prior VTE?: No VTE Risk Level:: Medical - moderate - high VTE Device Contraindication: Treatment Not Indicated VTE Drug Contraindication: N/A - Med Ordered
[2024-02-01 16:24] LABS: Glucose, Whole Blood 140 mg/dL (60-115)
[2024-02-01 19:48] LABS: Glucose, Whole Blood 188 mg/dL (60-115)
[2024-02-01] MEDS: Insulin Glargine,Hum.rec.anlog 100 UNIT/ML 10 ML VIAL 8 UNIT SUBCUT (20:34)
[2024-02-02] VITALS (7 sets, daily range): BP systolic 100–108; BP diastolic 55–60; PULSE 78–90; RESP 16–20; TEMP 36.2–37.2; O2SAT 81–96
[2024-02-02] MEDS: 0.9 % Sodium Chloride Flush 3 ML SYRINGE IVFLUSH ×2 (00:42→08:56)
[2024-02-02] MEDS: Omeprazole 20 MG CAPSULE.DR PO (05:41)
[2024-02-02 08:07] LABS: Glucose, Whole Blood 91 mg/dL (60-115)
[2024-02-02] MEDS: carvediloL 12.5 MG TABLET PO ×2 (08:55→20:31)
[2024-02-02] MEDS: allopurinoL 100 MG TABLET PO (08:55)
[2024-02-02] MEDS: Atorvastatin Calcium 40 MG TABLET PO (08:55)
[2024-02-02] MEDS: Aspirin Enteric Coated 81 MG TABLET.DR PO (08:55)
[2024-02-02] MEDS: predniSONE 10 MG TABLET PO (08:55)
[2024-02-02] MEDS: Apixaban 5 MG TABLET PO ×2 (08:55→20:31)
[2024-02-02] MEDS: Multivitamin TABLET 1 TAB PO (08:56)
[2024-02-02] MEDS: Potassium Chloride ER 20 MEQ TAB.ER.PRT 40 MEQ PO (08:56)
[2024-02-02] MEDS: Gabapentin 600 MG TABLET PO ×3 (08:56→20:35)
[2024-02-02] MEDS: Cholecalciferol (Vitamin D3) 25 MCG TABLET 50 MCG PO (08:56)
--- NOTE | 2024-02-02 10:42 | PM.PNCARD ---
Subjective Subjective Date of Service: 02/02/24 Interval history: Patient states she feels fine. No new complaints. Review of Systems Review of Systems Yes all other systems are reviewed and are negative Constitutional: Reports as per HPI and Reports no additional constitutional complaints Eyes: Reports as per HPI and Denies no additional eye complaints Denies system reviewed and no additional complaints, except as documented and Reports as per HPI Cardiovascular: Reports as per HPI, Reports no additional cardiovascular complaints, Denies acrocyanosis, Denies cool extremities, Denies chest pain, Denies leg edema, Denies lightheadedness, Denies palpitations and Denies dyspnea Respiratory: Reports as per HPI, Denies no additional respiratory complaints and Denies dyspnea Gastrointestinal: Reports as per HPI and Denies no additional gastrointestinal complaints Genitourinary: Reports as per HPI Musculoskeletal: Reports no additional musculoskeletal complaints and Reports as per HPI Skin/Breast: Reports system reviewed and no additional complaints, except as docu Reports system reviewed and no additional complaints, except as documented and Reports as per HPI Psychiatric: Reports no additional psychiatric complaints and Reports as per HPI Endocrine: Reports no additional endocrine complaints, Reports as per HPI and Denies palpitations Hematologic/Lymphatic: Reports no additional hematologic/lymphatic complaints and Reports as per HPI Allergic/Immunologic: Reports no additional allergic/immunologic complaints and Reports as per HPI Physical Exam Vital Signs: Last Vital Signs Temp 98.9 F 02/02/24 08:50 Pulse 86 02/02/24 08:50 Resp 20 02/02/24 08:50 BP 103/55 L 02/02/24 08:50 Pulse Ox 91 L 02/02/24 08:50 O2 Del Method Room Air 02/02/24 08:50 O2 Flow Rate 2 01/30/24 19:23 Oxygen Flow Rate 2 01/30/24 15:13 BMI result Body Mass Index 26.9 Const General: comfortable and no acute distress Orientation/consciousness: patient oriented x3 HEENT Other: Unremarkable Head: Yes normal to inspection Neck Neck: Yes normal visual inspection Chest Chest palpation & inspection: normal inspection of the chest Resp Auscultation: clear to auscultation bilaterally Cardio Palpation: normal PMI Heart sounds: S1 normal heart sound present, S2 normal heart sound present, no gallops, no murmurs and no rubs GI Palpation (GI): Soft to palpation Back/Spine/Pelvis Other: unremarkable Skin General skin exam: no rashes or lesions noted Neuro General: patient oriented x3 Extrem General: Yes normal to inspection Psych Mental Status: mental status grossly normal Objective Labs and Meds 01/31/24 06:01 02/01/24 08:07 Lab results: Laboratory Results - last 24 hr 02/01/24 02/01/24 02/01/24 11:21 16:03 19:43 POC Glucose 173 H 140 H 188 H 02/02/24 07:48 POC Glucose 91 Progress Note: A&P Assessment and plan (1) Acute on chronic systolic congestive heart failure: Status: Acute (2) AICD (automatic cardioverter/defibrillator) present: Status: Acute Plan [facility] echocardiogram from November with LVEF of 20%. Severe global hypokinesis with regional variation. Trabeculated apex. No significant valvular issues. For meds, seems to be on carvedilol, Entresto. However, blood pressure was low and hence the Entresto was held. Additionally, there was also a slight bump in creatinine. Will need to recheck. Coreg is on a small dose. Blood pressure is stable today. If the creatinine is not increasing any further, potentially discharged home on a small dose of Entresto. Other meds will need to be added as an outpatient. Discussed with Dr. Briscoe. Time Spent With Patient Time: Total time managing care of this patient today ____ minutes. Progress Note: Quality Stroke Does the patient have a stroke diagnosis?: No Procedures Date of Service Date of Service: 02/02/24
--- NOTE | 2024-02-02 10:58 | HO.PM.IMPN ---
Subjective Subjective Date of Service: 02/02/24 Interval History: She continues to feel better, no sob Blood pressure remains on low side with most BP meds on hold Physical Exam Vital Signs: Vital Signs: Last Vital Signs Temp 98.9 F 02/02/24 08:50 Pulse 86 02/02/24 08:50 Resp 20 02/02/24 08:50 BP 103/55 L 02/02/24 08:50 Pulse Ox 91 L 02/02/24 08:50 O2 Del Method Room Air 02/02/24 08:50 O2 Flow Rate 2 01/30/24 19:23 Oxygen Flow Rate 2 01/30/24 15:13 BMI result Body Mass Index 26.9 General: AO X 3, no acute distress Resp: CTA bilateral CVS: S1,S2,RRR GI: +BS, NT, no distention Skin: No rash Neuro: motor grossly intact Psych: appropriate affect Objective Data Active Medications Acetaminophen (Acetaminophen 325 Mg Tablet) 975 mg PO Q6H PRN PRN Reason: Pain, Mild (Pain Scale 1-3), fever or headache Last Admin: 01/31/24 03:49 Dose: 975 mg Documented By: SEMLA Allopurinol (Allopurinol 100 Mg Tablet) 100 mg PO DAILY [facility] Last Admin: 02/02/24 08:55 Dose: 100 mg Documented By: CORBIN Apixaban (Apixaban 5 Mg Tablet) 5 mg PO BID [facility] Last Admin: 02/02/24 08:55 Dose: 5 mg Documented By: CORBIN Aspirin (Aspirin Enteric Coated 81 Mg Tablet.) 81 mg PO DAILY [facility] Last Admin: 02/02/24 08:55 Dose: 81 mg Documented By: CORBIN Atorvastatin Calcium (Atorvastatin Calcium 40 Mg Tablet) 40 mg PO DAILY [facility] Last Admin: 02/02/24 08:55 Dose: 40 mg Documented By: CORBIN Carvedilol (Carvedilol 12.5 Mg Tablet) 12.5 mg PO BID [facility]; Protocol Last Admin: 02/02/24 08:55 Dose: 12.5 mg Documented By: CORBIN Fluticasone Propionate (Fluticasone Propionate Nasal 16 Gm [place]) 1 spray NOSTRIL-B DAILY PRN PRN Reason: allergies Gabapentin (Gabapentin 600 Mg Tablet) 600 mg PO TID [facility] Last Admin: 02/02/24 08:56 Dose: 600 mg Documented By: CORBIN Glucose (Glucose Gel 15 Gm Gel..Gram.) 15 gm PO Q15M PRN; Protocol PRN Reason: per Hypoglycemia Standing Ord. Dextrose (D10) 250 mls @ 750 mls/hr IV Q15M PRN; Protocol PRN Reason: per Hypoglycemia Standing Ord. Insulin Glargine (Insulin Glargine,Hum.Rec.Anlog 100 Unit/Ml 10 Ml Vial) 8 unit SUBCUT BEDTIME [facility] Last Admin: 02/01/24 20:34 Dose: 8 unit Documented By: MARIBEL Comments: BS 188 Insulin Human Lispro (Insulin Lispro 100 Unit/Ml 3 Ml Vial) 0 unit SUBCUT QIDACHS [facility]; Protocol Last Admin: 02/02/24 08:10 Dose: Not Given Documented By: CORBIN Non-Admin Reason: No Insulin Coverage Loratadine (Loratadine 10 Mg Tablet) 10 mg PO DAILY PRN PRN Reason: Allergy Symptoms Melatonin (Melatonin 3 Mg Tablet) 6 mg PO BEDTIME PRN PRN Reason: Insomnia Last Admin: 01/31/24 20:55 Dose: 6 mg Documented By: SAMANTHA Methocarbamol (Methocarbamol 750 Mg Tablet) 750 mg PO BID PRN PRN Reason: Muscle Spasm Multivitamins/Vitamin C (Multivitamin Tablet) 1 tab PO DAILY [facility] Last Admin: 02/02/24 08:56 Dose: 1 tab Documented By: CORBIN Non-Formulary Medication (Diclofenac Sodium) 1 each TOPICAL QID PRN PRN Reason: Pain Non-Formulary Medication (Linagliptin [Tradjenta]) 5 mg PO DAILY [facility] Omeprazole (Omeprazole 20 Mg Capsule.Dr) 20 mg PO DAILY@0630 [facility] Last Admin: 02/02/24 05:41 Dose: 20 mg Documented By: MARIBEL Potassium Chloride (Potassium Chloride Er 20 Meq Tab.Er.Prt) 40 meq PO DAILY [facility] Last Admin: 02/02/24 08:56 Dose: 40 meq Documented By: CORBIN Silver Sulfadiazine (Silver Sulfadiazine 1 % Cream 20 Gm Tube) 1 appl TOPICAL DAILY PRN PRN Reason: ingrown nail Sodium Chloride (0.9 % Sodium Chloride Flush 3 Ml Syringe) 3 ml IVFLUSH QSHIFT [facility] Last Admin: 02/02/24 08:56 Dose: 3 ml Documented By: CORBIN Triamcinolone Acetonide (Triamcinolone Acet 0.5 % Cream 15 Gm Tube) 1 appl TOPICAL BID PRN; Protocol PRN Reason: flares Vitamin D (Cholecalciferol (Vitamin D3) 25 Mcg Tablet) 50 mcg PO DAILY [facility] Last Admin: 02/02/24 08:56 Dose: 50 mcg Documented By: CORBIN Zolpidem Tartrate (Zolpidem Tartrate 5 Mg Tablet) 5 mg PO BEDTIME PRN PRN Reason: Insomnia Last Admin: 01/31/24 20:55 Dose: 5 mg Documented By: SAMANTHA Labs 01/31/24 06:01 02/01/24 08:07 Labs: Laboratory Results - last 24 hr 02/01/24 02/01/24 02/01/24 11:21 16:03 19:43 POC Glucose 173 H 140 H 188 H 02/02/24 07:48 POC Glucose 91 Microbiology Microbiology Results: Microbiology 01/30/24 16:55 Blood Culture - Preliminary Blood - Venous No growth after 48 hours. 01/30/24 17:00 Blood Culture - Preliminary Blood - Venous No growth after 48 hours. Assessment and Plan (1) Pericardial cyst: Status: Acute (2) Acute CHF: Status: Acute (3) AICD (automatic cardioverter/defibrillator) present: Status: Acute Plan 68/F with DM, HLD, CKD 3, gout, HFrEF here with Shortness on breath likely multifactorial, likely from acute on chronic heart failure HFrEF -clinically euvolemic. Stop IV Lasix, resume PO tomorrow when BP is better continue Coreg at half dose (12.5) given low BP, entresto on hold d/t low BP and restart when BP improves. Will add Jardiance and Aldactone as recommended by cardiology once BP improves . Chest pain, likely secondary to above. resolved. Continue baby aspirin and statin. Type 2 diabetes mellitus. BG checks before meals at bedtime. Lantus, linagliptin and insulin sliding scale. Diabetic diet. check BMP Hyperlipidemia. Continue statin. Essential hypertension. Continue carvedilol and Entresto once BP improves. Chronic AFib. Continue carvedilol and Eliquis. CKD, stage 3B. Renal function is at baseline. Avoid nephrotoxic agents. Continue follow-up as an outpatient with Nephrology. Gout. Continue allopurinol. s/p AICD placement, battery recently replaced Hx nontoxic multinodular goiter. S/p right lobectomy. Euthyroid. Continue follow-up as an outpatient with endocrinology. DVT prophylaxis: Eliquis. Code status: Full need for inpt: Monitoring blood pressure Will reassess later for possible dc, Quality Stroke Does the patient have a stroke diagnosis?: No VTE Prior VTE?: No VTE Risk Level:: Medical - moderate - high VTE Device Contraindication: Treatment Not Indicated VTE Drug Contraindication: N/A - Med Ordered
[2024-02-02 11:16] LABS: Anion Gap 11 (12-20); Blood Urea Nitrogen 28 mg/dL (9-16); Calcium 8.9 mg/dL (8.4-10.2); Carbon Dioxide 28 mmol/L (22-29); Chloride 104 mmol/L (96-108); Creatinine Clr Calc Pharmacy 29.3; Estimated Glomerular Filt Rate 35; Glucose Random 180 mg/dL (60-115); Potassium 4.4 mmol/L (3.3-5.1); Sodium 139 mmol/L (135-145)
[2024-02-02 11:41] LABS: Glucose, Whole Blood 164 mg/dL (60-115)
[2024-02-02] MEDS: Insulin Lispro 100 UNIT/ML 3 ML VIAL SUBCUT ×2 (12:46→20:33)
[2024-02-02 16:07] LABS: Glucose, Whole Blood 141 mg/dL (60-115)
[2024-02-02 19:56] LABS: Glucose, Whole Blood 188 mg/dL (60-115)
[2024-02-02] MEDS: Insulin Glargine,Hum.rec.anlog 100 UNIT/ML 10 ML VIAL 8 UNIT SUBCUT (20:32)
[2024-02-03] VITALS: BP 103/54; PULSE 76; RESP 16; TEMP 36; O2SAT 95
[2024-02-03 03:27] VITALS: BP 98/55; PULSE 78; RESP 16; TEMP 37; O2SAT 97
[2024-02-03] MEDS: Omeprazole 20 MG CAPSULE.DR PO (05:31)
[2024-02-03 05:34] VITALS: BMI 24.4
[2024-02-03 08:00] VITALS: BP 102/60; PULSE 82; RESP 16; TEMP 37.1; O2SAT 98
[2024-02-03 08:28] LABS: Glucose, Whole Blood 86 mg/dL (60-115)
[2024-02-03 08:38] VITALS: BP 112/60; PULSE 82; RESP 17; TEMP 36.4; O2SAT 97
[2024-02-03] MEDS: carvediloL 12.5 MG TABLET PO (08:43)
[2024-02-03] MEDS: allopurinoL 100 MG TABLET PO (08:44)
[2024-02-03] MEDS: Multivitamin TABLET 1 TAB PO (08:44)
[2024-02-03] MEDS: Gabapentin 600 MG TABLET PO (08:44)
[2024-02-03] MEDS: Atorvastatin Calcium 40 MG TABLET PO (08:44)
[2024-02-03] MEDS: Apixaban 5 MG TABLET PO (08:44)
[2024-02-03] MEDS: Aspirin Enteric Coated 81 MG TABLET.DR PO (08:44)
[2024-02-03] MEDS: Potassium Chloride ER 20 MEQ TAB.ER.PRT 40 MEQ PO (08:44)
[2024-02-03] MEDS: Cholecalciferol (Vitamin D3) 25 MCG TABLET 50 MCG PO (08:44)
[2024-02-03] MEDS: 0.9 % Sodium Chloride Flush 3 ML SYRINGE IVFLUSH (08:46)
[2024-02-03 09:05] LABS: Anion Gap 15 (12-20); Blood Urea Nitrogen 25 mg/dL (9-16); Calcium 9.5 mg/dL (8.4-10.2); Carbon Dioxide 23 mmol/L (22-29); Chloride 106 mmol/L (96-108); Creatinine Clr Calc Pharmacy 30.9; Estimated Glomerular Filt Rate 40; Glucose Random 91 mg/dL (60-115); Potassium 4.5 mmol/L (3.3-5.1); Sodium 139 mmol/L (135-145)
[2024-02-03 11:40] LABS: Glucose, Whole Blood 145 mg/dL (60-115)
[2024-02-03] MEDS: Sacubitril/Valsartan 49/51 1 TAB TABLET PO (11:50)
[2024-02-03] MEDS: Furosemide 20 MG TABLET PO (11:50)
[2024-02-03 11:56] VITALS: BP 105/60; PULSE 79; RESP 20; TEMP 36.6; O2SAT 98
--- NOTE | 2024-02-03 13:25 | PM.DS ---
DS: Providers Provider Date of Service: 02/05/24 Date of admission: 01/30/24 20:36 Primary care physician: Cordelia Moraes PA-C Consults: 01/30/24 21:12 Consult to Cardiology Routine Consulting Provider: [facility] Reason for consultation: Acute CHF, pericardial cyst Has provider been notified: Yes DS: Diagnosis Discharge Diagnosis (1) Pericardial cyst: Status: Acute (2) Acute CHF: Status: Acute (3) AICD (automatic cardioverter/defibrillator) present: Status: Acute DS: Summary Hospital Course Hospital Course: admission hpi Chief Complaint: Shortness of breath Lida Benitez is a 68 years old woman with past medical history significant for cardiomyopathy/systolic congestive heart failure s/p AICD implantation, type 2 diabetes mellitus on insulin, hypertension and hyperlipidemia presents to the emergency department complaining of shortness on breath that started last night at 09:30 associated with chest pain that radiates across her chest, intensity 5/10. She denied any associated cough, fever, chills, headache, palpitations, sweating, nausea or vomiting. She denied any acute gastrointestinal or genitourinary symptoms. Denies tobacco smoking, alcohol abuse or illicit drug use. Patient mentioned that her AICD battery was recently changed. She stated that she is compliant with her home medications and avoid high sodium consumption. In the ED, she was found to have stable vital signs. Blood workup was remarkable for leukocytosis 16.3, hemoglobin is 10.5 which is at baseline. Platelets are normal. INR is 1.5. There is mild hypokalemia of 3.2. BNP is elevated, 1522, troponin is 9.7. LFTs are normal. Viral testing for COVID-19, influenza and RSV is negative. Chest CTA showed mild pulmonary edema with small pleural effusion bilaterally, findings possible representing pericardial cyst and elevated right heart pressures. ECG showed LBBB. ED tx: Furosemide 40 mg IV, nitro ointment 0.5 in, potassium 40 mEq p.o., ceftriaxone 1 g IV Hospital course: The patient presented with shortness of breath and clinical findings indicative of congestive heart failure (CHF) exacerbation. She was treated with IV Lasix, which led to hypotension and a rise in creatinine, prompting the discontinuation of IV Lasix. The doses of Entresto and Coreg were reduced to half their usual amounts, while Lasix was on hold. Her symptoms of shortness of breath have since resolved, and she was monitored in the hospital for additional days, during which her blood pressure improved and serum creatinine returned to baseline levels. Cardiology has advised reducing her medications, including Lasix, Coreg, and Entresto, to half of their usual doses. These changes have been implemented. She will follow up with her primary care provider (PCP) and cardiology on an outpatient basis. To continue all other usual medications Final diagnoses: Acute on chronic HFrEF LALO on CKD Time Attestation Discharge Coordination Time (in mins): 40 Quality: Safe Use of Opioids Does Pt have an Active Cancer Diagnosis on the Problem List?: No Quality: Stroke Does the patient have a stroke diagnosis?: No Physical Exam Vital Signs: Vital Signs: Last Vital Signs Temp 97.8 F 02/03/24 11:56 Pulse 79 02/03/24 11:56 Resp 20 02/03/24 11:56 BP 105/60 02/03/24 11:56 Pulse Ox 98 02/03/24 11:56 O2 Del Method Room Air 02/03/24 11:56 O2 Flow Rate 2 01/30/24 19:23 Oxygen Flow Rate 2 01/30/24 15:13 BMI result Body Mass Index 24.4 DS: Data Data Completed and Pending Labs on day of discharge: Laboratory Results - last 24 hr 02/02/24 02/02/24 02/03/24 16:02 19:52 08:24 Sodium Potassium Chloride Carbon Dioxide Anion Gap BUN Creatinine Estim Creat Clear Calc Estimated GFR POC Glucose 141 H 188 H 86 Random Glucose Calcium 02/03/24 02/03/24 08:34 11:35 Sodium 139 Potassium 4.5 Chloride 106 Carbon Dioxide 23 Anion Gap 15 BUN 25 H Creatinine 1.33 Estim Creat Clear Calc 30.9 Estimated GFR 40 POC Glucose 145 H Random Glucose 91 Calcium 9.5 D Preliminary micro results at discharge 01/30/24 16:55 Blood Culture - Preliminary Blood - Venous No growth after 48 hours. 01/30/24 17:00 Blood Culture - Preliminary Blood - Venous No growth after 48 hours. Discharge Plan Discharge Anticipated Discharge Date/Time: 02/03/24 13:07 Patient Disposition: Home Health Service Discharge Diagnosis: Acute on chronic heart failure with preserved EF, LALO, Hypotension Referrals: Cordelia Moraes PA-C [Primary Care Provider] - 1 Week Discharge Medications: New carvedilol 12.5 mg Tablet 12.5 mg PO BID Qty: 180 0RF Protocol: Hold for SBP/HR < HOLD for SBP < : 90 HOLD for HR < : 60 Entresto 49-51 mg Tablet 1 tab PO BID Qty: 180 0RF Protocol: Hold for SBP< HOLD for SBP < : 90 furosemide [Lasix] 20 mg tablet 20 mg PO DAILY Qty: 90 0RF Continued (DME) lancing device [Adjustable Lancing Device] Misc See Rx Instructions .ROUTE .MEDSUPPLY Qty: 1 0RF Rx Instructions: 3 times a day (DME) lancets 28 gauge misc See Rx Instructions topical .MEDSUPPLY Qty: 200 3RF Rx Instructions: To test blood glucose 2 times a day (DME) pen needle, diabetic [BD Radha 2nd Gen Pen Needle] 32 gauge x 5/32 needle See Rx Instructions .ROUTE .MEDSUPPLY Qty: 50 6RF Rx Instructions: once a day atorvastatin 40 mg tablet 40 mg PO DAILY Qty: 90 0RF Tradjenta 5 mg tablet 5 mg PO DAILY 90 Days Qty: 90 3RF multivitamin with folic acid [Daily-Mallika (with folic acid)] 400 mcg tablet 1 tab PO DAILY silver sulfadiazine 1 % cream 1 appl topical DAILY PRN (Reason: ingrown nail) insulin glargine [Lantus Solostar U-100 Insulin] 100 unit/mL (3 mL) insulin pen 8 unit subcut BEDTIME methocarbamol 750 mg tablet 750 mg PO BID PRN (Reason: Muscle Spasm) zolpidem 5 mg tablet 5 mg PO BEDTIME PRN (Reason: Insomnia) cholecalciferol (vitamin D3) 50 mcg (2,000 unit) capsule 50 mcg PO DAILY omeprazole 10 mg capsule,delayed release(DR/EC) 10 mg PO DAILY@0630 loratadine 10 mg tablet 10 mg PO DAILY PRN (Reason: Allergy Symptoms) aspirin 81 mg tablet,delayed release (DR/EC) 81 mg PO DAILY gabapentin 600 mg tablet 600 mg PO TID triamcinolone acetonide 0.5 % cream 1 appl topical BID PRN (Reason: flares) diclofenac sodium 1 % gel 1 ea topical QID PRN (Reason: Pain) fluticasone propionate 50 mcg/actuation spray,suspension 50 mcg intranasal DAILY PRN (Reason: allergies) Eliquis 5 mg tablet 5 mg PO BID allopurinol 100 mg tablet 100 mg PO DAILY Discontinued carvedilol 25 mg tablet 25 mg PO BID furosemide 40 mg tablet 40 mg PO DAILY Entresto 97-103 mg tablet 1 tab PO BID prednisone 10 mg tablet 10 mg PO DAILY Qty: 7 0RF Rx Instructions: END DATE: 02/02/24 Discharge Orders: Discharge Order (Routine); Ordered 02/03/24 Ordered By: Reji Briscoe Diet: Diabetic diet Activity on Discharge: As tolerated Stand Alone Forms: Patient Portal Discharge page Print Language: Libyan Care Plan Goals: Control heart failure symptoms, improve quality of life and prevent rehospitalization Health Concerns: Heart failure Kidney failure which has improved Plan of Treatment: Note the following changes to your medication 1/ Lasix dose is decreased to 20 mg daily from 40 mg daily 2/ Coreg (carvedilol) dose decreased from 25 mg twice daily to 12. 5 mg twice daily 3/ Entresto dose has been reduced from 97-103 mg twice daily to 49-51 mg twice daily -Follow up with your Heart Doctor in 2 weeks, call for appointment -Follow up with your primary care Doctor within a week call for appointment Avoid drinking water to excess, not to exceed 1800 cc a day weight yourself daily, and if you gain 2 Ib within 24 hours and or having shortness of breath, swelling legs, please call your Doctor Assessment: See above Discharge Date/Time: 02/03/24 15:10
--- NOTE | 2024-02-03 13:34 | P.F2F_ITS ---
Service Date Service Date: 02/03/24 Encounter Date of encounter: 02/03/24 Reasons for Services Signs and symptoms assessed: Heart failure with associated SOB with minimal effort Reason for longterm: medication management and teach disease management Homebound: Leaving the home is medically contraindicated at this time without the asist of a device and/or another person due th the listed conditions above and below. Reason homebound: shortness of breath with minimal effort Homebound supporting statement: homebound due to shortness of breath with minimal effort and rest and therefore needs the assistance of another person Certification: Based on the above findings, I certify that this patient is confined to the home and needs intermittent longterm care, physical therapy and/or speech therapy, or continues to need occupational therapy. The patient is under my care, and I have initiated the establishment of the plan of care. The patient will be followed by a physician who will periodically review the plan of care. Time Spent With Patient Time: Total time managing care of this patient today ____ minutes.
--- NOTE | 2024-02-03 14:09 | MHC.CM.PN ---
Addendum entered by Brooke Greenwood 02/03/24 15:06: VNA services will be provided by [facility] [facility] Original Note: Second IMM, pt has been medically cleared, she will go home via private transport, referral out for VNA services, awaiting response.
== END 2024-02-03 15:10 | disposition home health service (06) | DRG 291 ==
LOC: HO.ED 19:53 → HO.EDOVER 20:38 → HO.IMC 20:53
PROVIDERS: Physician Assistant; Admitting Provider Internal Medicine; Emergency Provider Emergency Medicine; PCP Physician Assistant; Visit Provider Internal Medicine
DX: I13.0 Hypertensive heart and chronic kidney disease with heart failure and stage 1 through stage 4 chronic kidney disease, or unspecified chronic kidney disease (principal); I50.23 Acute on chronic systolic (congestive) heart failure; I31.8 Other specified diseases of pericardium; N17.9 Acute kidney failure, unspecified; E11.40 Type 2 diabetes mellitus with diabetic neuropathy, unspecified; N18.32 Chronic kidney disease, stage 3b; M10.9 Gout, unspecified; I95.9 Hypotension, unspecified; E78.5 Hyperlipidemia, unspecified; I42.8 Other cardiomyopathies; E11.22 Type 2 diabetes mellitus with diabetic chronic kidney disease; E04.2 Nontoxic multinodular goiter; Z20.822 Contact with and (suspected) exposure to COVID-19; Z95.810 Presence of automatic (implantable) cardiac defibrillator; Z79.01 Long term (current) use of anticoagulants; Z79.82 Long term (current) use of aspirin; Z79.4 Long term (current) use of insulin; Z79.899 Other long term (current) drug therapy
CPT/HCPCS: 0241U; 36415; 71045; 71275; 80048; 80053; 82947; 83605; 83735; 83880; 84145; 84484; 85025; 85610; 87040; 93005; 99285; J0696; J1940; J3475; Q9967

== ENCOUNTER → 2024-01-30 20:36 | Outpatient (BNV) | payer OTHER, SELFPAY | PROVIDERS: Admitting Provider Internal Medicine; Emergency Provider Emergency Medicine; PCP Physician Assistant; Visit Provider Internal Medicine Cardiovascular Disease | DX: I50.9 Heart failure, unspecified (principal); R94.31 Abnormal electrocardiogram [ECG] [EKG] | CPT/HCPCS: 93010; 99222; 99233 ==

== ENCOUNTER → 2024-01-30 20:36 | Outpatient (BNV) | payer OTHER, SELFPAY | PROVIDERS: Admitting Provider Internal Medicine; Emergency Provider Emergency Medicine; PCP Physician Assistant; Visit Provider Internal Medicine | DX: Q24.8 Other specified congenital malformations of heart (principal); I50.9 Heart failure, unspecified; Z95.810 Presence of automatic (implantable) cardiac defibrillator | CPT/HCPCS: 99223; 99232; 99239; G0180 ==

== ENCOUNTER 2024-04-15 14:23 | Inpatient (IN) | payer OTHER, SELFPAY ==
[2024-04-15] VITALS (7 sets, daily range): BP systolic 90–144; BP diastolic 62–100; PULSE 88–110; RESP 18–26; TEMP 36.7–37.3; O2SAT 87–98; BMI 29.1
--- NOTE | ~2024-04-15 | CT_ITS ---
EXAMINATION: CT ABDOMEN AND PELVIS WITHOUT CONTRAST CLINICAL INFORMATION: Right upper quadrant epigastric pain and diarrhea. COMPARISON: CT scan of the abdomen and pelvis December 2014. Chest x-ray 04/15/2024. CTA chest January 2024. TECHNIQUE: Multidetector volumetric imaging was performed from the superior aspect of the liver through the pubic symphysis. Sagittal and coronal reformatted images were obtained on the technologist's workstation. This CT examination was performed using dose optimization techniques as appropriate, variously including the following: *Automated exposure control. *Adjustment of mA and/or kV according to patient size (this includes techniques or standardized protocols for targeted exams where dose is matched to indication/reason for exam; i.e. extremities or head). *Use of iterative reconstruction technique. DLP: 400 mGy-cm FINDINGS: LUNG BASES: There is a moderate-sized right pleural effusion and small left pleural effusion. There is patchy opacity noted in the lower lungs bilaterally, right greater than left. Pacer lead noted with the tip in the right ventricle. LIVER, GALLBLADDER, AND BILIARY TREE: The liver is normal in size, shape, and attenuation. No focal hepatic lesion or biliary ductal dilatation is present. Status post cholecystectomy. No intrahepatic or extrahepatic biliary dilatation. PANCREAS: Unremarkable. SPLEEN: Unremarkable. ADRENAL GLANDS: Unremarkable. KIDNEYS AND URETERS: The right kidney is again noted in the right lower quadrant right pelvis, unchanged. Slight dilatation of the left collecting system. No stones seen. Minimal perinephric stranding. BLADDER: Unremarkable. GASTROINTESTINAL TRACT: Appendix not visualized. No inflammatory changes in the right lower quadrant. Large bowel normal. Small bowel normal. Stomach normal. ABDOMINAL WALL: No significant hernia is appreciated. Mild edema noted posteriorly overlying the lumbar muscles. LYMPH NODES: Normal. VASCULAR: Moderate arterial calcifications noted throughout, similar to prior. PELVIC VISCERA: Uterus not visualized. Presumably surgically absent. No adnexal masses. OSSEOUS STRUCTURES: Multilevel spondylosis of the lumbosacral spine with vacuum disc phenomenon at the L4-L5 and L5-S1 levels with associated disc space narrowing. Degenerative changes are progressed compared with prior CT in 2015. CT/CT abdomen pelvis wo IV con IMPRESSION: 1. Bilateral pleural effusions right greater than left with patchy opacity in the lower lungs bilaterally. This could reflect atelectasis or infiltrate/pneumonia. 2. Status post cholecystectomy. 3. Right lower abdomen pelvic kidney. 4. Slight dilatation of the left collecting system of uncertain significance. No stones seen. 5. Appendix not visualized. No inflammatory changes in the right lower quadrant. 6. Moderate calcific atherosclerotic disease. 7. Spondylosis of the lumbosacral spine. Fleischner guidelines were followed. Electronically signed by: Jon Wright MD 04/15/2024 07:57 PM EDT RP
--- NOTE | ~2024-04-15 | XR_ITS ---
EXAMINATION: XR CHEST CLINICAL INFORMATION: Chest pain. COMPARISON: Chest radiograph dated January 30, 2024. TECHNIQUE: Frontal view of the chest was obtained. FINDINGS: The single lead cardiac device is unchanged in position. The heart remains mildly enlarged. There is central vascular congestion. No large pleural effusion. No pneumothorax. No acute osseous abnormality. XR/XR chest 1V IMPRESSION: Stable cardiomegaly and central vascular congestion. Electronically signed by: Zeb Galdamez DO 04/15/2024 04:27 PM EDT
--- NOTE | 2024-04-15 14:52 | ECG_ITS ---
Test Reason : CP Blood Pressure : / mmHG Vent. Rate : 106 BPM Atrial Rate : 107 BPM P-R Int : 154 ms QRS Dur : 118 ms QT Int : 344 ms P-R-T Axes : 050 -30 116 degrees QTc Int : 456 ms Sinus tachycardia with occasional Premature ventricular complexes Left axis deviation Minimal voltage criteria for LVH, may be normal variant ( Ar product ) Possible Anterior infarct , age undetermined Abnormal ECG When compared with ECG of 30-JAN-2024 15:12, Premature ventricular complexes are now Present Left bundle branch block is no longer Present Borderline criteria for Anterior infarct are now Present Referred By: Saritha Simmons Electronically Signed By:TRACY LANTIGUA
--- NOTE | 2024-04-15 15:23 | ED_ITS ---
HPI - General Adult General Chief complaint: Dyspnea Stated complaint: CP in to neck started today Hungarian interperter Time Seen by Provider: 04/15/24 15:23 Source: patient and EMS Mode of arrival: EMS Limitations: no limitations and language barrier (Hungarian-speaking mma fighter utilized) History of Present Illness HPI narrative: Patient is a 68-year-old female who presents emergency department for evaluation she reports 5 days ago she began with diffuse abdominal pain that was a bloated sensation has progressively worsened. Pain is now primarily to the right upper quadrant and epigastric region. She noticed an increase in the pain last night and reports a few small episodes of diarrhea. This morning she began experiencing substernal and right anterior chest pain, pain radiating to the right lower ribs, and shortness of breath with notable dyspnea on exertion. She states she has been compliant with her medications including her diuretics. She denies recent fevers or chills. Denies associated nausea or vomiting. Related Data Home Medications ?Medication ?Instructions ?Recorded ?Confirmed aspirin 81 mg tablet,delayed 81 mg PO DAILY 06/04/20 04/15/24 release cholecalciferol (vitamin D3) 50 50 mcg PO DAILY 06/04/20 04/15/24 mcg (2,000 unit) capsule gabapentin 600 mg tablet 600 mg PO TID 06/04/20 04/15/24 loratadine 10 mg tablet 10 mg PO DAILY PRN Allergy Symptoms 06/04/20 04/15/24 methocarbamol 750 mg tablet 750 mg PO BID PRN Muscle Spasm 06/04/20 04/15/24 omeprazole 10 mg capsule,delayed 10 mg PO DAILY@0630 06/04/20 04/15/24 release zolpidem 5 mg tablet 5 mg PO BEDTIME PRN Insomnia 06/04/20 04/15/24 apixaban 5 mg tablet (Eliquis) 5 mg PO BID 01/05/23 04/15/24 diclofenac sodium 1 % topical gel 1 ea topical QID PRN Pain 01/05/23 04/15/24 fluticasone propionate 50 50 mcg intranasal DAILY PRN 01/05/23 04/15/24 mcg/actuation nasal allergies spray,suspension triamcinolone acetonide 0.5 % 1 appl topical BID PRN flares 01/05/23 04/15/24 topical cream allopurinol 100 mg tablet 100 mg PO DAILY 01/26/24 04/15/24 insulin glargine 100 unit/mL (3 8 unit subcut BEDTIME 01/31/24 04/15/24 mL) subcutaneous pen (Lantus Solostar U-100 Insulin) multivitamin with folic acid 400 1 tab PO DAILY 01/31/24 04/15/24 mcg tablet (Daily-Mallika (with folic acid)) silver sulfadiazine 1 % topical 1 appl topical DAILY PRN ingrown 01/31/24 04/15/24 cream nail linagliptin 5 mg tablet (Tradjenta) 5 mg PO DAILY 04/15/24 04/15/24 metoprolol succinate 100 mg 100 mg PO DAILY 04/15/24 04/15/24 tablet,extended release 24 hr Previous Rx's ?Medication ?Instructions ?Recorded lancing device (Adjustable Lancing #1 ea 02/01/21 Device) lancets 28 gauge #200 ea 05/02/21 pen needle, diabetic 32 gauge x #50 ea 01/08/22 (BD Radha 2nd Gen Pen Needle) atorvastatin 40 mg tablet 40 mg PO DAILY #90 tabs 08/21/23 furosemide 20 mg tablet (Lasix) 20 mg PO DAILY #90 tabs 02/03/24 sacubitril 49 mg-valsartan 51 mg 1 tab PO BID #180 tabs 02/03/24 tablet (Entresto) Allergies Allergy/AdvReac Type Severity Reaction Status Date / Time egg [EGG] Allergy Intermediate RASH Verified 04/15/24 14:44 Fish Containing Products Allergy Intermediate RASH Verified 01/30/24 15:15 oxycodone [OXYCODONE] Allergy Intermediate RASH Verified 04/15/24 14:44 acetaminophen [From PERCOCET] Allergy Unknown RASH/ITCHIN Verified 04/15/24 14:44 G codeine [CODEINE] Allergy Unknown ITCHING Verified 04/15/24 14:44 hydrocodone [From VICODIN] Allergy Unknown UNKNOWN Verified 04/15/24 14:44 lisinopril [LISINOPRIL] Allergy Unknown UNKNOWN Verified 04/15/24 14:44 metoclopramide [From REGLAN] Allergy Unknown UNKNOWN Verified 04/15/24 14:44 naproxen [Naprosyn] Allergy Unknown Unknown Verified 04/15/24 14:44 tramadol Allergy Unknown Unknown Verified 04/15/24 14:44 Review of Systems 2 Review of Systems: Yes all other systems are reviewed and are negative [facility] Past Medical History Attestation statement: The following information was validated with the patient. Source: old records reviewed Medical History Pericardial cyst CHF (congestive heart failure) CHF (congestive heart failure) Hypoglycemia unawareness associated with type 2 diabetes mellitus Vitamin D deficiency Diabetic neuropathy associated with type 2 diabetes mellitus CKD (chronic kidney disease) stage 3, GFR 30-59 ml/min Hypertension Dyslipidemia assisted (current) use of insulin Non-toxic multinodular goiter Diabetes type 2, uncontrolled Surgical History Hx of biopsy AICD (automatic cardioverter/defibrillator) present Hx of appendectomy Hx of hysterectomy Family History Family History Father Alcoholism Diabetes Mother Arthritis Hypertension Social History Social History Household Members: None Housing: Apartment Unable to assess alcohol history related to: Unknown Alcohol intake: current Alcohol intake frequency: does not drink Patient Tobacco Use Status: Never used Tobacco Smoked in Last 30 Days: No Use of substances other than those prescribed or required for medical reasons: No Advance Directives: No Advance Directives Information Provided: No Do you have a plan to hurt others: No Plan Nutrition Risks: No Nutritional Risk service: No Physical Exam ED Vital Signs: Vital Signs - 24 hr 04/15/24 14:42 04/15/24 15:32 04/15/24 16:32 Temperature 99.1 F 98.7 F Pulse Rate 110 H 104 H 93 Respiratory Rate 26 H 18 Blood Pressure 90/70 124/74 120/75 Pulse Oximetry 87 L 97 98 Oxygen Delivery Method Room Air Nasal Cannula Room Air Oxygen Flow Rate 2 04/15/24 16:51 04/15/24 20:18 04/15/24 22:15 Temperature 98.1 F 98.2 F Pulse Rate 95 88 94 Respiratory Rate 26 H 18 20 Blood Pressure 120/70 114/74 112/62 Pulse Oximetry 97 96 98 Oxygen Delivery Method Nasal Cannula Nasal Cannula Room Air Oxygen Flow Rate 2 2 BMI result Body Mass Index 29.1 Appearance: Alert.?Oriented to person, place and time. No acute distress.?Normal affect. Eyes: Pupils equal, round and reactive to light.? ENT: Pharynx normal.?? Neck: Normal inspection.? Neck supple.??No JVD CVS: Heart sounds normal. Normal heart rate and rhythm.? Pulses normal.?? Respiratory: Mild increased work of breathing, tachypneic, speaking full sentences. Initial room air hypoxia 87% improved on 2 L via nasal cannula to 97%.? Lung sounds diminished with rales bilaterally? Abdomen: Soft and non-tender. Normoactive bowel sounds. No pulsatile mass.?? Skin: Skin warm and dry.? Normal skin color.? Normal skin turgor.?? Extremities: No lower extremity edema.? No calf ttp? Neuro: Moves all extremities spontaneously. Sensation intact bilaterally.Ambulates with normal steady gait. Course Reevaluation(s) Reevaluation #1: Elevated BNP and CXR concerning for CHF exacerbation coupled with history and physical examination. Given episode of hypotension on arrival, will start with Lasix 40 mg IV. Magnesium sulfate 2 g IV replacement; 1.3. Time: 16:51 Reevaluation #2: CT of the abdomen and pelvis revealing bilateral pleural effusions right greater than left with patchy opacity in the lower lungs bilaterally concerning for atelectasis versus infiltrate/pneumonia, as previously mentioned covered empirically with Rocephin. Patient is status post cholecystectomy, no acute hepatic abnormalities, no biliary ductal dilation, slight dilation of the left renal collecting system no stone seen minimal perinephric stranding, pending urinalysis Time: 20:31 Medications Administered Generic Name Dose Route Start Last Admin Trade Name Brandonq PRN Reason Stop Dose Admin Allopurinol 100 mg 04/16/24 09:00 04/16/24 09:46 Allopurinol 100 Mg Tablet PO 100 mg DAILY MIRANDA Administration Apixaban 5 mg 04/15/24 23:35 04/16/24 09:45 Apixaban 5 Mg Tablet PO 5 mg BID MIRANDA Administration Aspirin 81 mg 04/16/24 09:00 04/16/24 09:46 Aspirin Enteric Coated 81 Mg Tablet. PO 81 mg DAILY MIRANDA Administration Atorvastatin Calcium 40 mg 04/16/24 09:00 04/16/24 09:46 Atorvastatin Calcium 40 Mg Tablet PO 40 mg DAILY MIRANDA Administration Furosemide 20 mg 04/16/24 09:00 04/16/24 09:46 Furosemide 20 Mg/2 Ml Vial IVPUSH 20 mg DAILY [facility] Administration Protocol Gabapentin 600 mg 04/15/24 23:35 04/16/24 09:46 Gabapentin 600 Mg Tablet PO 600 mg TID MIRANDA Administration Insulin Glargine 6 unit 04/15/24 23:35 04/16/24 00:11 Insulin Glargine,Hum.Rec.Anlog 100 Unit/Ml 10 Ml Vial SUBCUT 6 unit BEDTIME [facility] Administration Insulin Human Lispro 0 unit 04/16/24 07:30 04/16/24 07:26 Insulin Lispro 100 Unit/Ml 3 Ml Vial SUBCUT Not Given QIDACHS [facility] Protocol Metoprolol Succinate 100 mg 04/16/24 09:00 04/16/24 09:45 Metoprolol Succinate Er 100 Mg Tab.Er.24h PO 100 mg DAILY [facility] Administration Protocol Multivitamins/Vitamin C 1 tab 04/16/24 09:00 04/16/24 09:46 Multivitamin Tablet PO 1 tab DAILY MIRANDA Administration Omeprazole 20 mg 04/16/24 06:30 04/16/24 06:50 Omeprazole 20 Mg Capsule.Dr PO 20 mg DAILY@0630 [facility] Administration Sacubitril/Valsartan 1 tab 04/15/24 23:35 04/16/24 10:08 Sacubitril/Valsartan 49/51 1 Tab Tablet PO 1 tab BID [facility] Administration Protocol Sodium Chloride 3 ml 04/16/24 00:00 04/16/24 07:26 0.9 % Sodium Chloride Flush 3 Ml Syringe IVFLUSH Not Given QSMIFT [facility] Vitamin D 50 mcg 04/16/24 09:00 04/16/24 09:46 Cholecalciferol (Vitamin D3) 25 Mcg Tablet PO 50 mcg DAILY [facility] Administration Zolpidem Tartrate 5 mg 04/15/24 23:33 04/16/24 00:23 Zolpidem Tartrate 5 Mg Tablet PO 5 mg BEDTIME PRN Administration Insomnia Discontinued Medications Generic Name Dose Route Start Last Admin Trade Name Freq PRN Reason Stop Dose Admin Furosemide 40 mg 04/15/24 16:49 04/15/24 16:59 Furosemide 40 Mg/4 Ml Vial IVPUSH 04/15/24 16:50 40 mg ONCE ONE Administration Protocol Ceftriaxone Sodium 1 gm/ 50 mls @ 100 mls/hr 04/15/24 15:35 04/15/24 16:30 Sodium Chloride IV 04/15/24 16:04 Infused ONCE ONE Infusion Sodium Chloride 250 mls @ 999 mls/hr 04/15/24 15:45 04/15/24 16:30 Ns IV 04/15/24 16:00 Infused .Q16M MIRANDA Infusion Magnesium Sulfate 2 gm in 50 mls @ 25 mls/hr 04/15/24 16:35 04/15/24 17:00 Magnesium Sulfate/H2o IV 04/15/24 18:34 Not Given ONCE ONE Magnesium Sulfate 2 gm in 50 mls @ 25 mls/hr 04/15/24 16:48 04/15/24 19:03 Magnesium Sulfate/H2o IV 04/15/24 18:47 Infused ONCE ONE Infusion Medical Decision Making Medical Decision Making MDM Narrative: Patient is a 68-year-old female with past medical history of obesity, AICD, CHF, CKD, diabetes, hypertension, dyslipidemia presenting to emergency department for evaluation of abdominal pain for 5 days followed by onset of chest pain and shortness of breath this morning as per HPI. At the time of my evaluation she is mildly tachypneic, had room air hypoxia of 87% which improved with 2 L via nasal cannula, she is tachycardic, had an initial BP reading of 90/70, on a manual blood pressure reading was 124/74. Sepsis alert was called, patient received normal saline 250 mL IV, concern for CHF therefore would defer sepsis fluid bolus, covering with Rocephin. Concern for potential pneumonia versus CHF exacerbation, however given her preceding abdominal pain and her tenderness to the right upper quadrant epigastrium, may potentially be cholecystitis, cholelithiasis, pancreatitis, gastritis, she did endorse episodes of diarrhea has no left lower quadrant tenderness, lower suspicion for diverticulitis. Differential Diagnosis Differential Diagnoses: The differential diagnosis associated with the presentation includes (See narrative above) Admission/Observation Consideration of admission/observation: Escalation of care including admission/observation considered (See narrative above and course narrative for further detail) Lab Data MDM Lab Attestation statement: I reviewed the patient's lab results. CBC revealing leukocytosis 18,900 with left shift, microcytic anemia which appears consistent with baseline, no thrombocytopenia. No lactic acidosis. Hypomagnesemia 1.3, replacing with 2 g IV. CKD stage 3 creatinine 1.4. BNP 2135 04/16/24 04:59 04/16/24 04:59 Labs: Lab Results 04/15/24 04/15/24 04/15/24 Range/Units 15:37 15:38 15:50 WBC 18.9 H (4.8-10.8) X10*3/uL RBC 4.33 (4.20-5.50) X10*6/uL Hgb 10.6 L (12.0-16.0) g/dl Hct 34.8 L (37.0-47.0) % MCV 80.4 (80.0-98.0) fL MCH 24.5 L (27.0-33.0) pg MCHC 30.5 L (31.0-35.0) g/dl RDW 13.9 (11.0-16.0) % Plt Count 259 (160-400) X10*3/uL MPV 10.8 (9.4-12.3) fL Immature Gran % (Auto) 0.6 H (0.0-0.4) % Neut % (Auto) 78.4 H (45-73) % Lymph % (Auto) 11.0 L (20-40) % Mccracken % (Auto) 9.3 (2-11) % Eos % (Auto) 0.2 (0-4) % Baso % (Auto) 0.5 (0-2) % Lymph # (Auto) 2.1 (1.2-4.9) X10*3/uL Mccracken # (Auto) 1.8 H (0.1-1.2) X10*3/uL Eos # (Auto) 0.0 (0.0-0.4) X10*3/uL Baso # (Auto) 0.1 (0.0-0.2) X10*3/uL Abs Immat Gran (auto) 0.11 H (0.00-0.03) X10*3/uL Absolute Neuts (auto) 14.8 H (2.0-8.3) x10*3/uL Absolute Nucleated RBC 0.000 (0.0-0.012) X10*3/uL Nucleated RBC % (auto) 0.0 (0.0-0.2) /100WBC Smear Tech's Comments VERIFIED PT 18.6 H (11.1-13.3) SEC INR 1.5 H (0.9-1.1) Sodium 141 (135-145) mmol/L Potassium 4.2 (3.3-5.1) mmol/L Chloride 109 H (96-108) mmol/L Carbon Dioxide 23 (22-29) mmol/L Anion Gap 13 (12-20) BUN 16 (9-16) mg/dL Creatinine 1.44 H (0.5-1.4) mg/dL Estim Creat Clear Calc 31.1 Estimated GFR 36 Random Glucose 128 H (60-115) mg/dL Lactic Acid 1.5 (0.5-2.0) mmol/L Calcium 8.2 L D (8.4-10.2) mg/dL Magnesium 1.3 L* (1.6-2.6) mg/dL Total Bilirubin 0.5 (0.0-1.0) mg/dL AST 30 (5-31) U/L ALT 22 (0-31) U/L Alkaline Phosphatase 76 (39-117) U/L Troponin I High Sens 5.9 D (<3.5-17.0) ng/L B-Natriuretic Peptide 2135 H (<100) pg/mL Total Protein 6.3 L (6.5-8.0) g/dL Albumin 3.5 (3.5-5.0) g/dL Lipase 9 (8-78) U/L Urine Color Urine Appearance Urine pH (5.0-9.0) Ur Specific Capay (1.005-1.025) Urine Protein (Neg-Trace) mg/dL Urine Glucose (UA) (Negative) mg/dL Urine Ketones (Negative) mg/dL Urine Blood (Negative) Urine Nitrite (Negative) Ur Leukocyte Esterase (Negative) Influenza Type A (PCR) NEGATIVE (Negative) Influenza Type B (PCR) NEGATIVE (Negative) RSV RNA Qual (PCR) NEGATIVE (Negative) SARS-CoV-2 RNA (RT-PCR) NEGATIVE (Negative) 04/15/24 Range/Units 21:04 WBC (4.8-10.8) X10*3/uL RBC (4.20-5.50) X10*6/uL Hgb (12.0-16.0) g/dl Hct (37.0-47.0) % MCV (80.0-98.0) fL MCH (27.0-33.0) pg MCHC (31.0-35.0) g/dl RDW (11.0-16.0) % Plt Count (160-400) X10*3/uL MPV (9.4-12.3) fL Immature Gran % (Auto) (0.0-0.4) % Neut % (Auto) (45-73) % Lymph % (Auto) (20-40) % Mccracken % (Auto) (2-11) % Eos % (Auto) (0-4) % Baso % (Auto) (0-2) % Lymph # (Auto) (1.2-4.9) X10*3/uL Mccracken # (Auto) (0.1-1.2) X10*3/uL Eos # (Auto) (0.0-0.4) X10*3/uL Baso # (Auto) (0.0-0.2) X10*3/uL Abs Immat Gran (auto) (0.00-0.03) X10*3/uL Absolute Neuts (auto) (2.0-8.3) x10*3/uL Absolute Nucleated RBC (0.0-0.012) X10*3/uL Nucleated RBC % (auto) (0.0-0.2) /100WBC Smear Tech's Comments PT (11.1-13.3) SEC INR (0.9-1.1) Sodium (135-145) mmol/L Potassium (3.3-5.1) mmol/L Chloride (96-108) mmol/L Carbon Dioxide (22-29) mmol/L Anion Gap (12-20) BUN (9-16) mg/dL Creatinine (0.5-1.4) mg/dL Estim Creat Clear Calc Estimated GFR Random Glucose (60-115) mg/dL Lactic Acid (0.5-2.0) mmol/L Calcium (8.4-10.2) mg/dL Magnesium (1.6-2.6) mg/dL Total Bilirubin (0.0-1.0) mg/dL AST (5-31) U/L ALT (0-31) U/L Alkaline Phosphatase (39-117) U/L Troponin I High Sens (<3.5-17.0) ng/L B-Natriuretic Peptide (<100) pg/mL Total Protein (6.5-8.0) g/dL Albumin (3.5-5.0) g/dL Lipase (8-78) U/L Urine Color Yellow Urine Appearance Clear Urine pH 7.0 (5.0-9.0) Ur Specific Capay <= 1.005 (1.005-1.025) Urine Protein Negative (Neg-Trace) mg/dL Urine Glucose (UA) Negative (Negative) mg/dL Urine Ketones Negative (Negative) mg/dL Urine Blood Negative (Negative) Urine Nitrite Negative (Negative) Ur Leukocyte Esterase Negative (Negative) Influenza Type A (PCR) (Negative) Influenza Type B (PCR) (Negative) RSV RNA Qual (PCR) (Negative) SARS-CoV-2 RNA (RT-PCR) (Negative) Independent Interpretation I performed an independent interpretation of an: EKG and Plain X-Ray (Pulmonary congestion) Interpretation: Rate: 106 Rhythm:? Sinus tachycardia with PVCs Normal P waves.? Normal RIN.?? Normal QRS complex.?? ST T wave :??No ST elevation qTC: 456 prior studies:? January of 2024 The study has been interpreted contemporaneously by me. Radiology Impression Discussion of test interpretation with radiology: I have reviewed the radiologist's reading. Radiologist Impression: XR/XR chest 1V IMPRESSION: Stable cardiomegaly and central vascular congestion. CT/CT abdomen pelvis wo IV con IMPRESSION: 1. Bilateral pleural effusions right greater than left with patchy opacity in the lower lungs bilaterally. This could reflect atelectasis or infiltrate/pneumonia. 2. Status post cholecystectomy. 3. Right lower abdomen pelvic kidney. 4. Slight dilatation of the left collecting system of uncertain significance. No stones seen. 5. Appendix not visualized. No inflammatory changes in the right lower quadrant. 6. Moderate calcific atherosclerotic disease. 7. Spondylosis of the lumbosacral spine. Independent Historian Clinical information obtained from an independent historian. History obtained from or confirmed by: EMS External Record Review External record reviewed: Outpatient record Critical Care Time Critical Care Time Critical Care Time: Yes Total Critical Care Time: 40 Attestation: I personally attest to this critical care time spent taking care of the patient exclusive of all other billable procedures was approximately 40 minutes including initial evaluation of patient, ordering tests, x-ray interpretation, EKG interpretation, acute CHF exacerbation with IV diuretics, acute hypoxic respiratory failure management, medical consultation, documentation, re- evaluation. Discharge Plan Discharge Clinical Impression: Acute hypoxemic respiratory failure, Acute exacerbation of CHF (congestive heart failure) Patient Disposition: Admitted As Inpatient Sepsis Bolus Exclusion Sepsis Bolus Exclusion CHF/Renal Failure This patient met severe sepsis criteria due to the following condition(s):: H ypotension (Initial documented blood pressure 90/70) In my clinical judgement the administration of 30 ml/kg of crystalloid would be detrimental to this patient due to the patient's following conditions:: Concern for fluid overload Replace the 30 mls/kg with (Zero amount not acceptable and all fluids for severe sepsis must be given at GREATER than 125 mls/hr) Crystalloids amount given in mls: (rate must be at least 150cc/hr): 250 Colloids amount given in mls:: 250
[2024-04-15] MEDS: 0.9 % Sodium Chloride 250 ML 999 ML IV (15:44)
[2024-04-15] MEDS: cefTRIAXone sodium 1 GM in 0.9 % Sodium Chloride 50 ML IV (15:44)
[2024-04-15 15:47] LABS: Basophils Absolute Auto 0.1 X10*3/uL (0.0-0.2); Basophils Percent Auto 0.5 % (0-2); Eosinophils Percent Auto 0.2 % (0-4); Hematocrit 34.8 % (37.0-47.0); Hemoglobin 10.6 g/dl (12.0-16.0); Imm Gran Abs Auto 0.11 X10*3/uL (0.00-0.03); Imm Gran Pct Auto 0.6 % (0.0-0.4); Lymphocytes Absolute Auto 2.1 X10*3/uL (1.2-4.9); MANUAL DIFF FLAG SCAN; Mean Corpuscular HGB Conc 30.5 g/dl (31.0-35.0); Mean Corpuscular Hemoglobin 24.5 pg (27.0-33.0); Mean Corpuscular Volume 80.4 fL (80.0-98.0); Mean Platelet Volume 10.8 fL (9.4-12.3); Monocytes Absolute Auto 1.8 X10*3/uL (0.1-1.2); Monocytes Percent Auto 9.3 % (2-11); Neutrophils Absolute Auto 14.8 x10*3/uL (2.0-8.3); Neutrophils Percent Auto 78.4 % (45-73); Platelet Count 259 X10*3/uL (160-400); Red Blood Count 4.33 X10*6/uL (4.20-5.50); Red Cell Distribution Width 13.9 % (11.0-16.0); SCAN SMEAR FLAG 1; White Blood Count 18.9 X10*3/uL (4.8-10.8)
[2024-04-15 15:53] LABS: INTERNATIONAL NORM RATIO 1.5 (0.9-1.1); Prothrombin Time 18.6 SEC (11.1-13.3)
[2024-04-15 16:03] LABS: Lactic Acid 1.5 mmol/L (0.5-2.0)
[2024-04-15 16:10] LABS: Anion Gap 13 (12-20)
[2024-04-15 16:14] LABS: Troponin-I High Sensitivity 5.9 ng/L (<3.5-17.0)
[2024-04-15 16:17] LABS: B Type Natriuretic Peptide 2135 pg/mL (<100)
[2024-04-15 16:18] LABS: SLIDE REVIEW VERIFIED
[2024-04-15 16:34] LABS: Alanine Aminotransferase 22 U/L (0-31); Albumin Level 3.5 g/dL (3.5-5.0); Alkaline Phosphatase 76 U/L (39-117); Aspartate Amino Transferase 30 U/L (5-31); Bilirubin Total 0.5 mg/dL (0.0-1.0); Blood Urea Nitrogen 16 mg/dL (9-16); Calcium 8.2 mg/dL (8.4-10.2); Carbon Dioxide 23 mmol/L (22-29); Chloride 109 mmol/L (96-108); Creatinine Clr Calc Pharmacy 31.1; Estimated Glomerular Filt Rate 36; Glucose Random 128 mg/dL (60-115); Lipase 9 U/L (8-78); Magnesium 1.3 mg/dL (1.6-2.6); Potassium 4.2 mmol/L (3.3-5.1); Sodium 141 mmol/L (135-145); Total Protein 6.3 g/dL (6.5-8.0)
[2024-04-15] MEDS: Magnesium Sulfate/H2O 2 GM/50 ML PIGGYBACK IV (16:59)
[2024-04-15] MEDS: Furosemide 40 MG/4 ML VIAL IVPUSH (16:59)
--- NOTE | 2024-04-15 17:14 | PC.NURSE ---
Plan of care updated w/ machine i coremaker at bedside, purewick placed.
[2024-04-15 17:33] LABS: Influenza A PCR NEGATIVE (Negative); Influenza B PCR NEGATIVE (Negative); Resp Syncy Virus RNA Qual PCR NEGATIVE (Negative); SARS COV2 PCR INHOUSE NEGATIVE (Negative)
[2024-04-15 21:13] LABS: Appearance Urine Clear; Color Urine Yellow; Glucose Urine UA Negative (Negative); Leukocyte Esterase Urine Negative (Negative); Nitrite Urine Negative (Negative); Specific Gravity - Urine <= 1.005 (1.005-1.025); Urine Blood Negative (Negative); Urine Ketones Negative (Negative); Urine Protein Negative (Neg-Trace)
--- NOTE | 2024-04-15 21:40 | PHA.MEDREC ---
Addendum entered by Shabana Hall RPh 04/15/24 22:24: Med rec was reviewed by [facility]. Original Note: Pharmacy Consult ? Medication Reconciliation Pharmacy has completed the medication reconciliation. Spoke to patient through it technical architect service (Monique) to confirm med list. Patient states she is no longer on Carvedilol 12.5 mg. Patient takes Lantus SoloStar 8 units at bedtime, however there are no claims. Not sure where patient is getting it from, however there are claims for B-D needles and alcohol pads, but no Lantus.
--- NOTE | 2024-04-15 22:27 | P.HPHOSP_ITS ---
History of Present Illness Date of Service: 04/15/24 Attending physician on admission: Laura Atwood Chief Complaint: Abdominal pain, diarrhea, SOB Pt is a 68-year-old female with a PMH significant for?cardiomyopathy, HFrEF, ICD in place, persistent AFib on Eliquis, HTN, HLD, insulin-dependent type 2 diabetes, and hx of gout who presents to the ED with?multiple complaints, including abdominal pain, diarrhea, shortness a breath, and chest tightness. Patient states that symptoms began 4 days prior on Thursday when she experienced a mild stomachache and 1-2 episodes of diarrhea. Over the next 3 days symptoms worsened with increasing abdominal pain and 6-7 nonbloody diarrhea episodes per day. Late last night and into this morning patient also developed increasing shortness a breath, difficulty breathing, LYNCH, and chest tightness associated with deep breathing. Patient denies fever, chills. No cough. Patient comes from home, lives alone, and uses a walker for ambulation. Not on home oxygen. Of note, patient was recently hospitalized from 01/29-02/02 for similar symptoms. Hospitalization was complicated by hypotension and increase in creatinine secondary to IV Lasix use. Upon discharge patient's Lasix, Coreg, and Entresto were halved their normal dosage by Cardiology. In the ED pt was tachycardic up to 110, tachypneic up to 26, initially hypoxic at 87% on RA, and with low-grade fever of 99.1. Labs were significant for leukocytosis of 18.9, H&H 10.6/34.8, creatinine 1.44, magnesium 1.3, and BNP 2135. UA negative for UTI. Tested negative for flu, COVID, RSV. CXR showed stable cardiomegaly and central vascular congestion without large pleural effusions. CT?of abdomen and pelvis showing bilateral pleural effusions with right greater than left with patchy opacity in the lower lungs bilaterally that could reflect atelectasis or infiltrate/pneumonia. Also found slight dilation of left collecting system of uncertain significance without any stones seen. EKG demonstrated sinus tachycardia with occasional PVCs but without evidence of significant ST elevations or depressions. Pt was treated with ceftriaxone, IVF, magnesium, and Lasix. Pt will be admitted to the hospital for treatment and further evaluation of acute hypoxic respiratory failure in the setting of CHF exacerbation. 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 Non-toxic multinodular goiter Diabetes type 2, uncontrolled Family History Father Alcoholism Diabetes Mother Arthritis Hypertension Surgical History Hx of biopsy AICD (automatic cardioverter/defibrillator) present Hx of appendectomy Hx of hysterectomy Social History Household Members: None Housing: Apartment Unable to assess alcohol history related to: Unknown Alcohol intake: current Alcohol intake frequency: does not drink Patient Tobacco Use Status: Never used Tobacco Smoked in Last 30 Days: No Use of substances other than those prescribed or required for medical reasons: No Advance Directives: No Advance Directives Information Provided: No Do you have a plan to hurt others: No Plan service: No Meds Allergies Allergy/AdvReac Type Severity Reaction Status Date / Time egg [EGG] Allergy Intermediate RASH Verified 04/15/24 14:44 Fish Containing Products Allergy Intermediate RASH Verified 01/30/24 15:15 oxycodone [OXYCODONE] Allergy Intermediate RASH Verified 04/15/24 14:44 acetaminophen [From PERCOCET] Allergy Unknown RASH/ITCHIN Verified 04/15/24 14:44 G codeine [CODEINE] Allergy Unknown ITCHING Verified 04/15/24 14:44 hydrocodone [From VICODIN] Allergy Unknown UNKNOWN Verified 04/15/24 14:44 lisinopril [LISINOPRIL] Allergy Unknown UNKNOWN Verified 04/15/24 14:44 metoclopramide [From REGLAN] Allergy Unknown UNKNOWN Verified 04/15/24 14:44 naproxen [Naprosyn] Allergy Unknown Unknown Verified 04/15/24 14:44 tramadol Allergy Unknown Unknown Verified 04/15/24 14:44 Home Medications ?Medication ?Instructions ?Recorded ?Confirmed ?Last Taken ?Type aspirin 81 mg tablet,delayed 81 mg PO DAILY 06/04/20 04/15/24 04/14/24 History release cholecalciferol (vitamin D3) 50 50 mcg PO DAILY 06/04/20 04/15/24 04/14/24 History mcg (2,000 unit) capsule gabapentin 600 mg tablet 600 mg PO TID 06/04/20 04/15/24 04/14/24 History loratadine 10 mg tablet 10 mg PO DAILY PRN Allergy Symptoms 06/04/20 04/15/24 Unknown History methocarbamol 750 mg tablet 750 mg PO BID PRN Muscle Spasm 06/04/20 04/15/24 Unknown History omeprazole 10 mg capsule,delayed 10 mg PO DAILY@0630 06/04/20 04/15/24 04/14/24 History release zolpidem 5 mg tablet 5 mg PO BEDTIME PRN Insomnia 06/04/20 04/15/24 Unknown History apixaban 5 mg tablet (Eliquis) 5 mg PO BID 01/05/23 04/15/24 04/14/24 History diclofenac sodium 1 % topical gel 1 ea topical QID PRN Pain 01/05/23 04/15/24 Unknown History fluticasone propionate 50 50 mcg intranasal DAILY PRN 01/05/23 04/15/24 Unknown History mcg/actuation nasal allergies spray,suspension triamcinolone acetonide 0.5 % 1 appl topical BID PRN flares 01/05/23 04/15/24 Unknown History topical cream allopurinol 100 mg tablet 100 mg PO DAILY 01/26/24 04/15/24 04/14/24 History insulin glargine 100 unit/mL (3 8 unit subcut BEDTIME 01/31/24 04/15/24 04/14/24 History mL) subcutaneous pen (Lantus Solostar U-100 Insulin) multivitamin with folic acid 400 1 tab PO DAILY 01/31/24 04/15/24 04/14/24 History mcg tablet (Daily-Mallika (with folic acid)) silver sulfadiazine 1 % topical 1 appl topical DAILY PRN ingrown 01/31/24 04/15/24 Unknown History cream nail linagliptin 5 mg tablet (Tradjenta) 5 mg PO DAILY 04/15/24 04/15/24 04/14/24 History metoprolol succinate 100 mg 100 mg PO DAILY 04/15/24 04/15/24 04/14/24 History tablet,extended release 24 hr Physical Exam 2 Vital Signs and Narrative: Vital Signs: Last Vital Signs Temp 98.2 F 04/15/24 22:15 Pulse 94 04/15/24 22:15 Resp 20 04/15/24 22:15 BP 112/62 04/15/24 22:15 Pulse Ox 98 04/15/24 22:15 O2 Del Method Room Air 04/15/24 22:15 O2 Flow Rate 2 04/15/24 20:18 BMI result Body Mass Index 29.1 General: AOx3, no acute distress Resp: CTA bilaterally CVS: S1, S2, RRR GI: +BS, no distention, mild central and LLQ tenderness Skin: Warm, dry Neuro: Cranial nerves II-XII grossly intact bilaterally. Motor grossly intact bilaterally Extremities: No edema Psych: Appropriate affect Results Labs 04/15/24 15:37 04/15/24 15:37 Labs: Laboratory Results - last 24 hr 04/15/24 04/15/24 04/15/24 15:37 15:38 15:50 MCV 80.4 MCH 24.5 L MCHC 30.5 L RDW 13.9 Plt Count 259 MPV 10.8 Immature Gran % (Auto) 0.6 H Neut % (Auto) 78.4 H Lymph % (Auto) 11.0 L [place] % (Auto) 9.3 Eos % (Auto) 0.2 Baso % (Auto) 0.5 Lymph # (Auto) 2.1 [place] # (Auto) 1.8 H Eos # (Auto) 0.0 Baso # (Auto) 0.1 Abs Immat Gran (auto) 0.11 H Absolute Neuts (auto) 14.8 H Absolute Nucleated RBC 0.000 Nucleated RBC % (auto) 0.0 Smear Tech's Comments VERIFIED PT 18.6 H INR 1.5 H Anion Gap 13 Estim Creat Clear Calc 31.1 Estimated GFR 36 Random Glucose 128 H Lactic Acid 1.5 Calcium 8.2 L D Magnesium 1.3 L* Total Bilirubin 0.5 AST 30 ALT 22 Alkaline Phosphatase 76 Troponin I High Sens 5.9 D B-Natriuretic Peptide 2135 H Total Protein 6.3 L Albumin 3.5 Lipase 9 Urine Color Urine Appearance Urine pH Ur Specific [place] Urine Protein Urine Glucose (UA) Urine Ketones Urine Blood Urine Nitrite Ur Leukocyte Esterase Influenza Type A (PCR) NEGATIVE Influenza Type B (PCR) NEGATIVE RSV RNA Qual (PCR) NEGATIVE SARS-CoV-2 RNA (RT-PCR) NEGATIVE 04/15/24 21:04 MCV MCH MCHC RDW Plt Count MPV Immature Gran % (Auto) Neut % (Auto) Lymph % (Auto) [place] % (Auto) Eos % (Auto) Baso % (Auto) Lymph # (Auto) [place] # (Auto) Eos # (Auto) Baso # (Auto) Abs Immat Gran (auto) Absolute Neuts (auto) Absolute Nucleated RBC Nucleated RBC % (auto) Smear Tech's Comments PT INR Anion Gap Estim Creat Clear Calc Estimated GFR Random Glucose Lactic Acid Calcium Magnesium Total Bilirubin AST ALT Alkaline Phosphatase Troponin I High Sens B-Natriuretic Peptide Total Protein Albumin Lipase Urine Color Yellow Urine Appearance Clear Urine pH 7.0 Ur Specific [place] <= 1.005 Urine Protein Negative Urine Glucose (UA) Negative Urine Ketones Negative Urine Blood Negative Urine Nitrite Negative Ur Leukocyte Esterase Negative Influenza Type A (PCR) Influenza Type B (PCR) RSV RNA Qual (PCR) SARS-CoV-2 RNA (RT-PCR) Imaging Radiologist's Impressions: Impressions Chest X-Ray 04/15/24 15:08 IMPRESSION: Stable cardiomegaly and central vascular congestion. Electronically signed by: Zeb Galdamez DO 04/15/2024 04:27 PM EDT RP Abdomen/Pelvis CT 04/15/24 16:57 IMPRESSION: 1. Bilateral pleural effusions right greater than left with patchy opacity in the lower lungs bilaterally. This could reflect atelectasis or infiltrate/pneumonia. 2. Status post cholecystectomy. 3. Right lower abdomen pelvic kidney. 4. Slight dilatation of the left collecting system of uncertain significance. No stones seen. 5. Appendix not visualized. No inflammatory changes in the right lower quadrant. 6. Moderate calcific atherosclerotic disease. 7. Spondylosis of the lumbosacral spine. Fleischner guidelines were followed. Electronically signed by: Jon Wright MD 04/15/2024 07:57 PM EDT RP Assessment and Plan (1) Acute exacerbation of CHF (congestive heart failure): Status: Acute Plan Pt is a 68-year-old female with a PMH significant for?cardiomyopathy, HFrEF, ICD in place, paroxysmal AFib on Eliquis, HTN, HLD, insulin-dependent type 2 diabetes, and hx of gout who presents to the ED with?multiple complaints, including abdominal pain, diarrhea, shortness a breath, and chest tightness. Pt will be admitted to the hospital for treatment and further evaluation of acute hypoxic respiratory failure in the setting of CHF exacerbation. Acute hypoxic respiratory failure in setting of HFrEF exacerbation Patient with increased SOB, LYNCH, elevated BNP from previous, bilateral pleural effusions on CT, desatting into 80s on RA Last admission pt had hypotension with Lasix 40 mg IV b.i.d.; cardiac med dosages were have by Cardiology at time of discharge Gentle diuresing with Lasix 20 mg IV daily for now Supplemental oxygen >92, wean as tolerated Continue Entresto Follow lytes, Mag, I/O Low-salt diet, daily weights Consider echocardiogram, unclear when last was Monitor on telemetry Abdominal pain and diarrhea Symptoms lasting for the past 4 days Patient denies suspicious food or sick contacts CT of abdomen/pelvis negative for acute abdomen Will check GI panel and C diff if patient has additional episode of diarrhea CKD 3 Renal function around baseline at 1.44 Follow renal function given IV diuresing CT of abdomen/pelvis found slight dilatation of left collecting system of uncertain significance Consider nephrology consult if renal function worsens Insulin-dependent type 2 diabetes Sliding scale insulin, Lantus Diabetic diet Paroxysmal AFib Continue metoprolol, Eliquis HLD Continue statin GERD PPI Full Code Attending:?Dr. Vines DVT Prophylaxis: On Eliquis Pt will require a hospitalization of at least two nights for treatment of?acute hypoxic respiratory failure in setting of CHF exacerbation. Given complications of patient's last admission, will require hospital level care for close monitoring of vitals, lytes, cardiac function while administering IV diuretics and supplemental O2. Quality Stroke Does the patient have a stroke diagnosis?: No VTE Prior VTE?: No VTE Risk Level:: Medical - moderate - high VTE Device Contraindication: Treatment Not Indicated VTE Drug Contraindication: N/A - Med Ordered
[2024-04-16] VITALS (9 sets, daily range): BP systolic 102–111; BP diastolic 61–75; PULSE 67–103; RESP 16–27; TEMP 36.4–37.7; O2SAT 92–97; BMI 30.3; BMI 29.6
[2024-04-16] MEDS: Insulin Glargine,Hum.rec.anlog 100 UNIT/ML 10 ML VIAL 6 UNIT SUBCUT ×2 (00:11→22:53)
[2024-04-16] MEDS: Apixaban 5 MG TABLET PO ×3 (00:11→22:53)
[2024-04-16] MEDS: 0.9 % Sodium Chloride Flush 3 ML SYRINGE IVFLUSH ×3 (00:12→23:01)
[2024-04-16] MEDS: Gabapentin 600 MG TABLET PO ×4 (00:12→22:51)
[2024-04-16] MEDS: Zolpidem Tartrate 5 MG TABLET PO ×2 (00:23→23:01)
[2024-04-16] MEDS: Sacubitril/Valsartan 49/51 1 TAB TABLET PO ×3 (00:24→22:51)
--- NOTE | 2024-04-16 00:27 | PC.NURSE ---
Pt medicated per oct. Pt tolerated well Pt ca&ox4, no signs of distress Plan of care ongoing.
[2024-04-16 05:18] LABS: Hematocrit 31.1 % (37.0-47.0); Hemoglobin 9.5 g/dl (12.0-16.0); Mean Corpuscular HGB Conc 30.5 g/dl (31.0-35.0); Mean Corpuscular Hemoglobin 24.7 pg (27.0-33.0); Mean Corpuscular Volume 80.8 fL (80.0-98.0); Mean Platelet Volume 11.2 fL (9.4-12.3); Platelet Count 249 X10*3/uL (160-400); Red Blood Count 3.85 X10*6/uL (4.20-5.50); White Blood Count 17.5 X10*3/uL (4.8-10.8)
[2024-04-16 05:29] LABS: Anion Gap 12 (12-20); Blood Urea Nitrogen 17 mg/dL (9-16); Calcium 7.8 mg/dL (8.4-10.2); Carbon Dioxide 24 mmol/L (22-29); Chloride 107 mmol/L (96-108); Creatinine Clr Calc Pharmacy 33.2; Estimated Glomerular Filt Rate 39; Glucose Random 69 mg/dL (60-115); Magnesium 1.9 mg/dL (1.6-2.6); Potassium 3.4 mmol/L (3.3-5.1); Sodium 140 mmol/L (135-145)
[2024-04-16] MEDS: Omeprazole 20 MG CAPSULE.DR PO (06:50)
--- NOTE | 2024-04-16 06:51 | PC.NURSE ---
Pt medicated per [facility] Plan of care ongoing.
[2024-04-16 07:25] LABS: Glucose, Whole Blood 133 mg/dL (60-115)
--- NOTE | 2024-04-16 09:17 | HO.PM.IMPN ---
Subjective Subjective Date of Service: 04/16/24 Interval History: sob diarrhea and abdominal pain improved Physical Exam Vital Signs: Vital Signs: Last Vital Signs Temp 97.6 F 04/16/24 07:43 Pulse 91 04/16/24 07:43 Resp 18 04/16/24 07:43 BP 102/64 04/16/24 07:43 Pulse Ox 97 04/16/24 07:43 O2 Del Method Nasal Cannula 04/16/24 07:43 O2 Flow Rate 2 04/16/24 07:43 BMI result Body Mass Index 29.1 General: AO X 3, no acute distress Resp: CTA bilateral, no accessory muscles used CVS: S1,S2,RRR GI: soft, non tender, non distended Neuro: motor grossly intact, alert Psych: appropriate affect, appropriate insight Objective Data Active Medications Allopurinol (Allopurinol 100 Mg Tablet) 100 mg PO DAILY [facility] Apixaban (Apixaban 5 Mg Tablet) 5 mg PO BID [facility] Last Admin: 04/16/24 00:11 Dose: 5 mg Documented By: LILIA Aspirin (Aspirin Enteric Coated 81 Mg Tablet.Dr) 81 mg PO DAILY [facility] Atorvastatin Calcium (Atorvastatin Calcium 40 Mg Tablet) 40 mg PO DAILY [facility] Benzonatate (Benzonatate 100 Mg Capsule) 100 mg PO TID PRN PRN Reason: Cough Calcium Carbonate (Calcium Carbonate 750 Mg Tab.Chew) 750 mg PO Q4H PRN PRN Reason: Heartburn Fluticasone Propionate (Fluticasone Propionate Nasal 16 Gm [place]) 1 spray NOSTRIL-B DAILY PRN PRN Reason: Allergies Furosemide (Furosemide 20 Mg/2 Ml Vial) 20 mg IVPUSH DAILY [facility]; Protocol Gabapentin (Gabapentin 600 Mg Tablet) 600 mg PO TID [facility] Last Admin: 04/16/24 00:12 Dose: 600 mg Documented By: LILIA Glucose (Glucose Gel 15 Gm Gel..Gram.) 15 gm PO Q15M PRN; Protocol PRN Reason: per Hypoglycemia Standing Ord. Dextrose (D10) 250 mls @ 750 mls/hr IV Q15M PRN; Protocol PRN Reason: per Hypoglycemia Standing Ord. Insulin Glargine (Insulin Glargine,Hum.Rec.Anlog 100 Unit/Ml 10 Ml Vial) 6 unit SUBCUT BEDTIME [facility] Last Admin: 04/16/24 00:11 Dose: 6 unit Documented By: LILIA Insulin Human Lispro (Insulin Lispro 100 Unit/Ml 3 Ml Vial) 0 unit SUBCUT QIDACHS [facility]; Protocol Last Admin: 04/16/24 07:26 Dose: Not Given Documented By: MARVEL Non-Admin Reason: No Insulin Coverage Loratadine (Loratadine 10 Mg Tablet) 10 mg PO DAILY PRN PRN Reason: Allergy Symptoms Magnesium Hydroxide (Milk Of Magnesia 30 Ml Oral.Susp) 30 ml PO DAILY PRN PRN Reason: Constipation Melatonin (Melatonin 3 Mg Tablet) 6 mg PO BEDTIME PRN PRN Reason: Insomnia Methocarbamol (Methocarbamol 750 Mg Tablet) 750 mg PO BID PRN PRN Reason: Muscle Spasm Metoprolol Succinate (Metoprolol Succinate Er 100 Mg Tab.Er.24h) 100 mg PO DAILY [facility]; Protocol Multivitamins/Vitamin C (Multivitamin Tablet) 1 tab PO DAILY [facility] Omeprazole (Omeprazole 20 Mg Capsule.Dr) 20 mg PO DAILY@0630 [facility] Last Admin: 04/16/24 06:50 Dose: 20 mg Documented By: LILIA Ondansetron HCl (Ondansetron Hcl 4 Mg/2 Ml Vial) 4 mg IVPUSH Q8H PRN PRN Reason: Nausea and Vomiting Sacubitril/Valsartan (Sacubitril/Valsartan 49/51 1 Tab Tablet) 1 tab PO BID [facility]; Protocol Last Admin: 04/16/24 00:24 Dose: 1 tab Documented By: LILIA Silver Sulfadiazine (Silver Sulfadiazine 1 % Cream 20 Gm Tube) 1 appl TOPICAL DAILY PRN PRN Reason: ingrown nail Sodium Chloride (0.9 % Sodium Chloride Flush 3 Ml Syringe) [facility] Last Admin: 04/16/24 07:26 Dose: Not Given Documented By: MARVEL Non-Admin Reason: Patient Asleep Vitamin D (Cholecalciferol (Vitamin D3) 25 Mcg Tablet) 50 mcg PO DAILY [facility] Zolpidem Tartrate (Zolpidem Tartrate 5 Mg Tablet) 5 mg PO BEDTIME PRN PRN Reason: Insomnia Last Admin: 04/16/24 00:23 Dose: 5 mg Documented By: LILIA Labs 04/16/24 04:59 04/16/24 04:59 Labs: Laboratory Results - last 24 hr 04/15/24 04/15/24 04/15/24 15:37 15:38 15:50 MCV 80.4 MCH 24.5 L MCHC 30.5 L RDW 13.9 Plt Count 259 MPV 10.8 Immature Gran % (Auto) 0.6 H Neut % (Auto) 78.4 H Lymph % (Auto) 11.0 L [place] % (Auto) 9.3 Eos % (Auto) 0.2 Baso % (Auto) 0.5 Lymph # (Auto) 2.1 [place] # (Auto) 1.8 H Eos # (Auto) 0.0 Baso # (Auto) 0.1 Abs Immat Gran (auto) 0.11 H Absolute Neuts (auto) 14.8 H Absolute Nucleated RBC 0.000 Nucleated RBC % (auto) 0.0 Smear Tech's Comments VERIFIED PT 18.6 H INR 1.5 H Anion Gap 13 Estim Creat Clear Calc 31.1 Estimated GFR 36 POC Glucose Random Glucose 128 H Lactic Acid 1.5 Calcium 8.2 L D Magnesium 1.3 L* Total Bilirubin 0.5 AST 30 ALT 22 Alkaline Phosphatase 76 Troponin I High Sens 5.9 D B-Natriuretic Peptide 2135 H Total Protein 6.3 L Albumin 3.5 Lipase 9 Urine Color Urine Appearance Urine pH Ur Specific [place] Urine Protein Urine Glucose (UA) Urine Ketones Urine Blood Urine Nitrite Ur Leukocyte Esterase Influenza Type A (PCR) NEGATIVE Influenza Type B (PCR) NEGATIVE RSV RNA Qual (PCR) NEGATIVE SARS-CoV-2 RNA (RT-PCR) NEGATIVE 04/15/24 04/16/24 04/16/24 21:04 04:59 07:21 MCV 80.8 MCH 24.7 L MCHC 30.5 L RDW 14.0 Plt Count 249 MPV 11.2 Immature Gran % (Auto) Neut % (Auto) Lymph % (Auto) [place] % (Auto) Eos % (Auto) Baso % (Auto) Lymph # (Auto) [place] # (Auto) Eos # (Auto) Baso # (Auto) Abs Immat Gran (auto) Absolute Neuts (auto) Absolute Nucleated RBC 0.000 Nucleated RBC % (auto) 0.0 Smear Tech's Comments PT INR Anion Gap 12 Estim Creat Clear Calc 33.2 Estimated GFR 39 POC Glucose 133 H Random Glucose 69 Lactic Acid Calcium 7.8 L Magnesium 1.9 Total Bilirubin AST ALT Alkaline Phosphatase Troponin I High Sens B-Natriuretic Peptide Total Protein Albumin Lipase Urine Color Yellow Urine Appearance Clear Urine pH 7.0 Ur Specific [place] <= 1.005 Urine Protein Negative Urine Glucose (UA) Negative Urine Ketones Negative Urine Blood Negative Urine Nitrite Negative Ur Leukocyte Esterase Negative Influenza Type A (PCR) Influenza Type B (PCR) RSV RNA Qual (PCR) SARS-CoV-2 RNA (RT-PCR) Assessment and Plan (1) Acute exacerbation of CHF (congestive heart failure): Status: Acute Plan 68F PMH chronic systolic CHF status post ICD, paroxysmal atrial fibrillation on Eliquis, hypertension, hyperlipidemia, diabetes, gout presented with abdominal pain, diarrhea, shortness for breath Acute hypoxic respiratory failure secondary to acute on chronic systolic CHF Continue IV Lasix, wean O2 as tolerated, monitor electrolytes Abdominal pain and diarrhea Much improved If has recurrent diarrhea will check GI panel and C diff CKD 3 Stable, monitor while diuresing Diabetes Continue basal bolus insulin Paroxysmal atrial fibrillation Continue metoprolol and Eliquis Hyperlipidemia Continue statin GERD Continue PPI DVT prophylaxis on Eliquis Full code reason for continued hospitalization: Patient is still hypoxic and requiring IV diuresis Quality Stroke Does the patient have a stroke diagnosis?: No VTE Prior VTE?: No VTE Risk Level:: Medical - moderate - high VTE Device Contraindication: Treatment Not Indicated VTE Drug Contraindication: N/A - Med Ordered
[2024-04-16] MEDS: Metoprolol Succinate ER 100 MG TAB.ER.24H PO (09:45)
[2024-04-16] MEDS: allopurinoL 100 MG TABLET PO (09:46)
[2024-04-16] MEDS: Multivitamin TABLET 1 TAB PO (09:46)
[2024-04-16] MEDS: Atorvastatin Calcium 40 MG TABLET PO (09:46)
[2024-04-16] MEDS: Aspirin Enteric Coated 81 MG TABLET.DR PO (09:46)
[2024-04-16] MEDS: Furosemide 20 MG/2 ML VIAL IVPUSH (09:46)
[2024-04-16] MEDS: Cholecalciferol (Vitamin D3) 25 MCG TABLET 50 MCG PO (09:46)
[2024-04-16 11:58] LABS: Glucose, Whole Blood 137 mg/dL (60-115)
[2024-04-16 17:13] LABS: Glucose, Whole Blood 121 mg/dL (60-115)
[2024-04-16 21:32] LABS: Glucose, Whole Blood 215 mg/dL (60-115)
[2024-04-16] MEDS: Insulin Lispro 100 UNIT/ML 3 ML VIAL SUBCUT (22:54)
[2024-04-17] VITALS (9 sets, daily range): BP systolic 91–112; BP diastolic 52–76; PULSE 80–100; RESP 16–20; TEMP 36.1–37.1; O2SAT 87–98
[2024-04-17] MEDS: Omeprazole 20 MG CAPSULE.DR PO (06:13)
[2024-04-17 07:18] LABS: Hematocrit 30.5 % (37.0-47.0); Hemoglobin 9.6 g/dl (12.0-16.0); Mean Corpuscular HGB Conc 31.5 g/dl (31.0-35.0); Mean Corpuscular Hemoglobin 24.9 pg (27.0-33.0); Mean Corpuscular Volume 79.2 fL (80.0-98.0); Mean Platelet Volume 11.3 fL (9.4-12.3); Platelet Count 251 X10*3/uL (160-400); Red Blood Count 3.85 X10*6/uL (4.20-5.50); Red Cell Distribution Width 13.7 % (11.0-16.0); White Blood Count 15.2 X10*3/uL (4.8-10.8)
[2024-04-17 07:19] LABS: Anion Gap 13 (12-20); Blood Urea Nitrogen 16 mg/dL (9-16); Calcium 8.1 mg/dL (8.4-10.2); Carbon Dioxide 24 mmol/L (22-29); Chloride 107 mmol/L (96-108); Creatinine Clr Calc Pharmacy 37.7; Estimated Glomerular Filt Rate 45; Glucose Fasting 86 mg/dL (60-99); Glucose Random 86 mg/dL (60-115); Magnesium 1.8 mg/dL (1.6-2.6); Potassium 3.5 mmol/L (3.3-5.1); Sodium 140 mmol/L (135-145)
[2024-04-17 07:26] LABS: Glucose, Whole Blood 88 mg/dL (60-115)
[2024-04-17] MEDS: Cholecalciferol (Vitamin D3) 25 MCG TABLET 50 MCG PO (08:10)
[2024-04-17] MEDS: Multivitamin TABLET 1 TAB PO (08:10)
[2024-04-17] MEDS: allopurinoL 100 MG TABLET PO (08:11)
[2024-04-17] MEDS: Apixaban 5 MG TABLET PO ×2 (08:11→21:28)
[2024-04-17] MEDS: 0.9 % Sodium Chloride Flush 3 ML SYRINGE IVFLUSH ×3 (08:11→21:30)
[2024-04-17] MEDS: Aspirin Enteric Coated 81 MG TABLET.DR PO (08:11)
[2024-04-17] MEDS: Atorvastatin Calcium 40 MG TABLET PO (08:11)
[2024-04-17] MEDS: Gabapentin 600 MG TABLET PO ×3 (08:11→21:28)
--- NOTE | 2024-04-17 09:14 | P.PNIM_ITS ---
Subjective Subjective Date of Service: 04/17/24 Interval History: sob diarrhea and abdominal pain improved Physical Exam 2 Vital Signs: Vital Signs: Last Vital Signs Temp 98.8 F 04/17/24 07:50 Pulse 80 04/17/24 07:50 Resp 18 04/17/24 07:50 BP 91/58 L 04/17/24 08:10 Pulse Ox 87 L 04/17/24 07:50 O2 Del Method Room Air 04/17/24 07:50 O2 Flow Rate 2 04/16/24 07:43 BMI result Body Mass Index 29.6 General: AO X 3, no acute distress Resp: CTA bilateral, no accessory muscles used CVS: S1,S2,RRR GI: soft, non tender, non distended Neuro: motor grossly intact, alert Psych: appropriate affect, appropriate insight Objective Data Active Medications Allopurinol (Allopurinol 100 Mg Tablet) 100 mg PO DAILY [facility] Last Admin: 04/17/24 08:11 Dose: 100 mg Documented By: SUZANNE Apixaban (Apixaban 5 Mg Tablet) 5 mg PO BID [facility] Last Admin: 04/17/24 08:11 Dose: 5 mg Documented By: SUZANNE Aspirin (Aspirin Enteric Coated 81 Mg Tablet.) 81 mg PO DAILY [facility] Last Admin: 04/17/24 08:11 Dose: 81 mg Documented By: SUZANNE Atorvastatin Calcium (Atorvastatin Calcium 40 Mg Tablet) 40 mg PO DAILY [facility] Last Admin: 04/17/24 08:11 Dose: 40 mg Documented By: SUZANNE Benzonatate (Benzonatate 100 Mg Capsule) 100 mg PO TID PRN PRN Reason: Cough Calcium Carbonate (Calcium Carbonate 750 Mg Tab.Chew) 750 mg PO Q4H PRN PRN Reason: Heartburn Fluticasone Propionate (Fluticasone Propionate Nasal 16 Gm [place]) 1 spray NOSTRIL-B DAILY PRN PRN Reason: Allergies Furosemide (Furosemide 20 Mg/2 Ml Vial) 20 mg IVPUSH DAILY [facility]; Protocol Last Admin: 04/17/24 08:09 Dose: Not Given Documented By: SUZANNE Non-Admin Reason: Physician Held Med Gabapentin (Gabapentin 600 Mg Tablet) 600 mg PO TID [facility] Last Admin: 04/17/24 08:11 Dose: 600 mg Documented By: SUZANNE Glucose (Glucose Gel 15 Gm Gel..Gram.) 15 gm PO Q15M PRN; Protocol PRN Reason: per Hypoglycemia Standing Ord. Dextrose (D10) 250 mls @ 750 mls/hr IV Q15M PRN; Protocol PRN Reason: per Hypoglycemia Standing Ord. Insulin Glargine (Insulin Glargine,Hum.Rec.Anlog 100 Unit/Ml 10 Ml Vial) 6 unit SUBCUT BEDTIME [facility] Last Admin: 04/16/24 22:53 Dose: 6 unit Documented By: DAVID Insulin Human Lispro (Insulin Lispro 100 Unit/Ml 3 Ml Vial) 0 unit SUBCUT QIDACHS [facility]; Protocol Last Admin: 04/17/24 07:34 Dose: Not Given Documented By: SUZANNE Non-Admin Reason: No Insulin Coverage Loratadine (Loratadine 10 Mg Tablet) 10 mg PO DAILY PRN PRN Reason: Allergy Symptoms Magnesium Hydroxide (Milk Of Magnesia 30 Ml Oral.Susp) 30 ml PO DAILY PRN PRN Reason: Constipation Melatonin (Melatonin 3 Mg Tablet) 6 mg PO BEDTIME PRN PRN Reason: Insomnia Methocarbamol (Methocarbamol 750 Mg Tablet) 750 mg PO BID PRN PRN Reason: Muscle Spasm Metoprolol Succinate (Metoprolol Succinate Er 100 Mg Tab.Er.24h) 100 mg PO DAILY [facility]; Protocol Last Admin: 04/17/24 08:10 Dose: Not Given Documented By: SUZANNE Non-Admin Reason: Physician Held Med Multivitamins/Vitamin C (Multivitamin Tablet) 1 tab PO DAILY [facility] Last Admin: 04/17/24 08:10 Dose: 1 tab Documented By: SUZANNE Omeprazole (Omeprazole 20 Mg Capsule.Dr) 20 mg PO DAILY@0630 [facility] Last Admin: 04/17/24 06:13 Dose: 20 mg Documented By: DAVID Ondansetron HCl (Ondansetron Hcl 4 Mg/2 Ml Vial) 4 mg IVPUSH Q8H PRN PRN Reason: Nausea and Vomiting Sacubitril/Valsartan (Sacubitril/Valsartan 49/51 1 Tab Tablet) 1 tab PO BID [facility]; Protocol Last Admin: 04/17/24 08:10 Dose: Not Given Documented By: SUZANNE Non-Admin Reason: Physician Held Med Silver Sulfadiazine (Silver Sulfadiazine 1 % Cream 20 Gm Tube) 1 appl TOPICAL DAILY PRN PRN Reason: ingrown nail Sodium Chloride (0.9 % Sodium Chloride Flush 3 Ml Syringe) 3 ml IVFLUSH QSHIFT [facility] Last Admin: 04/17/24 08:11 Dose: 3 ml Documented By: SUZANNE Vitamin D (Cholecalciferol (Vitamin D3) 25 Mcg Tablet) 50 mcg PO DAILY [facility] Last Admin: 04/17/24 08:10 Dose: 50 mcg Documented By: SUZANNE Zolpidem Tartrate (Zolpidem Tartrate 5 Mg Tablet) 5 mg PO BEDTIME PRN PRN Reason: Insomnia Last Admin: 04/16/24 23:01 Dose: 5 mg Documented By: DAVID Labs 04/17/24 06:21 04/17/24 06:21 Labs: Laboratory Results - last 24 hr 04/16/24 04/16/24 04/16/24 11:55 17:08 21:27 MCV MCH MCHC RDW Plt Count MPV Absolute Nucleated RBC Nucleated RBC % (auto) Anion Gap Estim Creat Clear Calc Estimated GFR POC Glucose 137 H 121 H 215 H Random Glucose Fasting Glucose Calcium Magnesium 04/17/24 04/17/24 06:21 06:56 MCV 79.2 L MCH 24.9 L MCHC 31.5 RDW 13.7 Plt Count 251 MPV 11.3 Absolute Nucleated RBC 0.000 Nucleated RBC % (auto) 0.0 Anion Gap 13 Estim Creat Clear Calc 37.7 Estimated GFR 45 POC Glucose 88 Random Glucose 86 Fasting Glucose 86 Calcium 8.1 L Magnesium 1.8 Microbiology Microbiology Results: Microbiology 04/15/24 15:37 Blood Culture - Preliminary Blood - Venous No growth after 24 hours. 04/15/24 15:37 Blood Culture - Preliminary Blood - Venous No growth after 24 hours. Assessment and Plan (1) Acute exacerbation of CHF (congestive heart failure): Status: Acute Plan 68F PMH chronic systolic CHF status post ICD, paroxysmal atrial fibrillation on Eliquis, hypertension, hyperlipidemia, diabetes, gout presented with abdominal pain, diarrhea, shortness for breath Acute hypoxic respiratory failure secondary to acute on chronic systolic CHF Continue IV Lasix, monitor electrolytes, now on room air but still sob Abdominal pain and diarrhea resolved If has recurrent diarrhea will check GI panel and C diff CKD 3 Stable, monitor while diuresing Diabetes Continue basal bolus insulin Paroxysmal atrial fibrillation Continue metoprolol and Eliquis Hyperlipidemia Continue statin GERD Continue PPI DVT prophylaxis on Eliquis Full code reason for continued hospitalization: still sob Quality Stroke Does the patient have a stroke diagnosis?: No VTE Prior VTE?: No VTE Risk Level:: Medical - moderate - high VTE Device Contraindication: Treatment Not Indicated VTE Drug Contraindication: N/A - Med Ordered
[2024-04-17] MEDS: Acetaminophen 325 MG TABLET 650 MG PO ×2 (11:51→21:29)
[2024-04-17 12:00] LABS: Glucose, Whole Blood 143 mg/dL (60-115)
--- NOTE | 2024-04-17 13:43 | MHC.CM.PN ---
Addendum entered by Brooke Greenwood 04/17/24 13:57: This pt did not say she had services through [employer], that is an error, she does have [employer] [employer], through [facility]. Original Note: IMM 04/17/24, pt lives alone, she has [employer] services through [facility] 2.5 hours a day, 5 days a week. For DME: she has a walker and a tub bench. She has a nurse who visits once a month, from [facility]. HCP will be completed here and added to chart. She will need assistance with transportation home at DC, she said she uses [employer]. DCP: home, resume services. CM to follow and assist with DC plan.
[2024-04-17 15:43] LABS: Glucose, Whole Blood 164 mg/dL (60-115)
[2024-04-17] MEDS: Insulin Lispro 100 UNIT/ML 3 ML VIAL SUBCUT (17:48)
[2024-04-17 20:42] LABS: Glucose, Whole Blood 128 mg/dL (60-115)
[2024-04-17] MEDS: Sacubitril/Valsartan 49/51 1 TAB TABLET PO (21:28)
[2024-04-17] MEDS: Insulin Glargine,Hum.rec.anlog 100 UNIT/ML 10 ML VIAL 6 UNIT SUBCUT (21:29)
[2024-04-17] MEDS: Zolpidem Tartrate 5 MG TABLET PO (23:04)
[2024-04-18] VITALS (7 sets, daily range): BP systolic 106–122; BP diastolic 54–79; PULSE 66–99; RESP 16–18; TEMP 36–36.6; O2SAT 92–98
[2024-04-18] MEDS: Omeprazole 20 MG CAPSULE.DR PO (06:32)
[2024-04-18] MEDS: Acetaminophen 325 MG TABLET 650 MG PO ×2 (06:33→16:57)
[2024-04-18 07:14] LABS: Glucose, Whole Blood 103 mg/dL (60-115)
[2024-04-18 07:22] LABS: Hematocrit 30.6 % (37.0-47.0); Hemoglobin 9.9 g/dl (12.0-16.0); Mean Corpuscular HGB Conc 32.4 g/dl (31.0-35.0); Mean Corpuscular Hemoglobin 25.3 pg (27.0-33.0); Mean Corpuscular Volume 78.1 fL (80.0-98.0); Mean Platelet Volume 10.9 fL (9.4-12.3); Platelet Count 249 X10*3/uL (160-400); Red Blood Count 3.92 X10*6/uL (4.20-5.50); Red Cell Distribution Width 13.7 % (11.0-16.0); White Blood Count 14.2 X10*3/uL (4.8-10.8)
[2024-04-18 07:44] LABS: Anion Gap 12 (12-20); Blood Urea Nitrogen 17 mg/dL (9-16); Calcium 8.5 mg/dL (8.4-10.2); Carbon Dioxide 24 mmol/L (22-29); Chloride 107 mmol/L (96-108); Creatinine Clr Calc Pharmacy 38.1; Estimated Glomerular Filt Rate 46; Glucose Fasting 97 mg/dL (60-99); Glucose Random 97 mg/dL (60-115); Magnesium 1.7 mg/dL (1.6-2.6); Potassium 3.5 mmol/L (3.3-5.1); Sodium 139 mmol/L (135-145)
[2024-04-18] MEDS: Atorvastatin Calcium 40 MG TABLET PO (08:31)
[2024-04-18] MEDS: allopurinoL 100 MG TABLET PO (08:31)
[2024-04-18] MEDS: Metoprolol Succinate ER 100 MG TAB.ER.24H PO (08:31)
[2024-04-18] MEDS: Cholecalciferol (Vitamin D3) 25 MCG TABLET 50 MCG PO (08:31)
[2024-04-18] MEDS: Aspirin Enteric Coated 81 MG TABLET.DR PO (08:31)
[2024-04-18] MEDS: Multivitamin TABLET 1 TAB PO (08:31)
[2024-04-18] MEDS: Sacubitril/Valsartan 49/51 1 TAB TABLET PO ×2 (08:31→20:43)
[2024-04-18] MEDS: Furosemide 20 MG/2 ML VIAL IVPUSH (08:32)
[2024-04-18] MEDS: Apixaban 5 MG TABLET PO ×2 (08:32→20:43)
[2024-04-18] MEDS: 0.9 % Sodium Chloride Flush 3 ML SYRINGE IVFLUSH ×2 (08:32→20:50)
[2024-04-18] MEDS: Gabapentin 600 MG TABLET PO ×3 (08:32→20:43)
[2024-04-18] MEDS: Metoprolol Tartrate 5 MG/5 ML VIAL 2.5 MG IVPUSH (09:38)
[2024-04-18] MEDS: methylPREDNISolone Sod Succ 40 MG/ML VIAL IVPUSH (09:38)
--- NOTE | 2024-04-18 10:32 | HO.PM.IMPN ---
Subjective Subjective Date of Service: 04/18/24 Interval History: right foot pain Physical Exam Vital Signs: Vital Signs: Last Vital Signs Temp 98 F 04/18/24 06:55 Pulse 99 04/18/24 06:55 Resp 16 04/18/24 06:55 BP 119/67 04/18/24 09:30 Pulse Ox 94 04/18/24 06:55 O2 Del Method Room Air 04/18/24 06:55 O2 Flow Rate 2 04/16/24 07:43 BMI result Body Mass Index 29.6 General: AO X 3, no acute distress Resp: CTA bilateral, no accessory muscles used CVS: S1,S2,RRR GI: soft, non tender, non distended Neuro: motor grossly intact, alert Psych: appropriate affect, appropriate insight right foot mild swelling, severe tenderness Objective Data Active Medications Acetaminophen (Acetaminophen 325 Mg Tablet) 650 mg PO Q4H PRN PRN Reason: mpain Last Admin: 04/18/24 06:33 Dose: 650 mg Documented By: SETH Allopurinol (Allopurinol 100 Mg Tablet) 100 mg PO DAILY [facility] Last Admin: 04/18/24 08:31 Dose: 100 mg Documented By: ZULMA Apixaban (Apixaban 5 Mg Tablet) 5 mg PO BID [facility] Last Admin: 04/18/24 08:32 Dose: 5 mg Documented By: ZULMA Aspirin (Aspirin Enteric Coated 81 Mg Tablet.) 81 mg PO DAILY [facility] Last Admin: 04/18/24 08:31 Dose: 81 mg Documented By: ZULMA Atorvastatin Calcium (Atorvastatin Calcium 40 Mg Tablet) 40 mg PO DAILY [facility] Last Admin: 04/18/24 08:31 Dose: 40 mg Documented By: ZULMA Benzonatate (Benzonatate 100 Mg Capsule) 100 mg PO TID PRN PRN Reason: Cough Calcium Carbonate (Calcium Carbonate 750 Mg Tab.Chew) 750 mg PO Q4H PRN PRN Reason: Heartburn Fluticasone Propionate (Fluticasone Propionate Nasal 16 Gm [place]) 1 spray NOSTRIL-B DAILY PRN PRN Reason: Allergies Furosemide (Furosemide 20 Mg/2 Ml Vial) 20 mg IVPUSH DAILY [facility]; Protocol Last Admin: 04/18/24 08:32 Dose: 20 mg Documented By: ZULMA Gabapentin (Gabapentin 600 Mg Tablet) 600 mg PO TID [facility] Last Admin: 04/18/24 08:32 Dose: 600 mg Documented By: ZULMA Glucose (Glucose Gel 15 Gm Gel..Gram.) 15 gm PO Q15M PRN; Protocol PRN Reason: per Hypoglycemia Standing Ord. Dextrose (D10) 250 mls @ 750 mls/hr IV Q15M PRN; Protocol PRN Reason: per Hypoglycemia Standing Ord. Insulin Glargine (Insulin Glargine,Hum.Rec.Anlog 100 Unit/Ml 10 Ml Vial) 6 unit SUBCUT BEDTIME [facility] Last Admin: 04/17/24 21:29 Dose: 6 unit Documented By: SETH Insulin Human Lispro (Insulin Lispro 100 Unit/Ml 3 Ml Vial) 0 unit SUBCUT QIDACHS [facility]; Protocol Last Admin: 04/18/24 07:29 Dose: Not Given Documented By: MARLYS Non-Admin Reason: No Insulin Coverage Loratadine (Loratadine 10 Mg Tablet) 10 mg PO DAILY PRN PRN Reason: Allergy Symptoms Magnesium Hydroxide (Milk Of Magnesia 30 Ml Oral.Susp) 30 ml PO DAILY PRN PRN Reason: Constipation Melatonin (Melatonin 3 Mg Tablet) 6 mg PO BEDTIME PRN PRN Reason: Insomnia Methocarbamol (Methocarbamol 750 Mg Tablet) 750 mg PO BID PRN PRN Reason: Muscle Spasm Metoprolol Succinate (Metoprolol Succinate Er 100 Mg Tab.Er.24h) 100 mg PO DAILY [facility]; Protocol Last Admin: 04/18/24 08:31 Dose: 100 mg Documented By: ZULMA Multivitamins/Vitamin C (Multivitamin Tablet) 1 tab PO DAILY [facility] Last Admin: 04/18/24 08:31 Dose: 1 tab Documented By: ZULMA Omeprazole (Omeprazole 20 Mg Capsule.) 20 mg PO DAILY@0630 [facility] Last Admin: 04/18/24 06:32 Dose: 20 mg Documented By: SETH Ondansetron HCl (Ondansetron Hcl 4 Mg/2 Ml Vial) 4 mg IVPUSH Q8H PRN PRN Reason: Nausea and Vomiting Prednisone (Prednisone 20 Mg Tablet) 40 mg PO DAILY [facility] Sacubitril/Valsartan (Sacubitril/Valsartan 49/51 1 Tab Tablet) 1 tab PO BID [facility]; Protocol Last Admin: 04/18/24 08:31 Dose: 1 tab Documented By: ZULMA Silver Sulfadiazine (Silver Sulfadiazine 1 % Cream 20 Gm Tube) 1 appl TOPICAL DAILY PRN PRN Reason: ingrown nail Sodium Chloride (0.9 % Sodium Chloride Flush 3 Ml Syringe) 3 ml IVFLUSH QSHIFT [facility] Last Admin: 04/18/24 08:32 Dose: 3 ml Documented By: ZULMA Vitamin D (Cholecalciferol (Vitamin D3) 25 Mcg Tablet) 50 mcg PO DAILY [facility] Last Admin: 04/18/24 08:31 Dose: 50 mcg Documented By: ZULMA Zolpidem Tartrate (Zolpidem Tartrate 5 Mg Tablet) 5 mg PO BEDTIME PRN PRN Reason: Insomnia Last Admin: 04/17/24 23:04 Dose: 5 mg Documented By: SETH Labs 04/18/24 07:04 04/18/24 07:04 Labs: Laboratory Results - last 24 hr 04/17/24 04/17/24 04/17/24 11:53 15:37 20:39 MCV MCH MCHC RDW Plt Count MPV Absolute Nucleated RBC Nucleated RBC % (auto) Anion Gap Estim Creat Clear Calc Estimated GFR POC Glucose 143 H 164 H 128 H Random Glucose Fasting Glucose Calcium Magnesium 04/18/24 04/18/24 06:57 07:04 MCV 78.1 L MCH 25.3 L MCHC 32.4 RDW 13.7 Plt Count 249 MPV 10.9 Absolute Nucleated RBC 0.000 Nucleated RBC % (auto) 0.0 Anion Gap 12 Estim Creat Clear Calc 38.1 Estimated GFR 46 POC Glucose 103 Random Glucose 97 Fasting Glucose 97 Calcium 8.5 Magnesium 1.7 Microbiology Microbiology Results: Microbiology 04/15/24 15:37 Blood Culture - Preliminary Blood - Venous No growth after 48 hours. 04/15/24 15:37 Blood Culture - Preliminary Blood - Venous No growth after 48 hours. Assessment and Plan (1) Acute exacerbation of CHF (congestive heart failure): Status: Acute Plan 68F PMH chronic systolic CHF status post ICD, paroxysmal atrial fibrillation on Eliquis, hypertension, hyperlipidemia, diabetes, gout presented with abdominal pain, diarrhea, shortness for breath Acute hypoxic respiratory failure secondary to acute on chronic systolic CHF Continue IV Lasix, monitor electrolytes, now on room air but still sob, improving foot pain acute gout solumedrol 40mg iv once, then prednisone 40mg daily Abdominal pain and diarrhea resolved If has recurrent diarrhea will check GI panel and C diff CKD 3 Stable, monitor while diuresing Diabetes Continue basal bolus insulin Paroxysmal atrial fibrillation Continue metoprolol and Eliquis Hyperlipidemia Continue statin GERD Continue PPI DVT prophylaxis on Eliquis Full code reason for continued hospitalization: severe pain from gout Quality Stroke Does the patient have a stroke diagnosis?: No VTE Prior VTE?: No VTE Risk Level:: Medical - moderate - high VTE Device Contraindication: Treatment Not Indicated VTE Drug Contraindication: N/A - Med Ordered
--- NOTE | 2024-04-18 10:36 | MHC.CM.PN ---
Per ROUNDS discussion, Patient is not yet medically cleared for dc (Acute Gout); home/resume services is the goal and CM will continue to follow.
[2024-04-18 11:06] LABS: Glucose, Whole Blood 184 mg/dL (60-115)
[2024-04-18] MEDS: Insulin Lispro 100 UNIT/ML 3 ML VIAL SUBCUT ×3 (11:07→20:43)
[2024-04-18] MEDS: Famotidine 20 MG TABLET PO (11:07)
[2024-04-18 16:08] LABS: Glucose, Whole Blood 164 mg/dL (60-115)
[2024-04-18 20:34] LABS: Glucose, Whole Blood 209 mg/dL (60-115)
[2024-04-18] MEDS: Insulin Glargine,Hum.rec.anlog 100 UNIT/ML 10 ML VIAL 6 UNIT SUBCUT (20:43)
[2024-04-19] MEDS: Zolpidem Tartrate 5 MG TABLET PO (00:48)
[2024-04-19 04:00] VITALS: BP 90/50; PULSE 81; RESP 19; TEMP 36.3; O2SAT 92
[2024-04-19] MEDS: Omeprazole 20 MG CAPSULE.DR PO (05:20)
[2024-04-19 07:03] LABS: Hematocrit 30.3 % (37.0-47.0); Hemoglobin 9.6 g/dl (12.0-16.0); Mean Corpuscular HGB Conc 31.7 g/dl (31.0-35.0); Mean Corpuscular Hemoglobin 24.4 pg (27.0-33.0); Mean Corpuscular Volume 77.1 fL (80.0-98.0); Platelet Count 271 X10*3/uL (160-400); Red Blood Count 3.93 X10*6/uL (4.20-5.50); Red Cell Distribution Width 13.3 % (11.0-16.0); White Blood Count 11.7 X10*3/uL (4.8-10.8)
[2024-04-19 07:18] LABS: Anion Gap 14 (12-20); Blood Urea Nitrogen 22 mg/dL (9-16); Calcium 8.4 mg/dL (8.4-10.2); Carbon Dioxide 22 mmol/L (22-29); Chloride 107 mmol/L (96-108); Creatinine Clr Calc Pharmacy 37.1; Estimated Glomerular Filt Rate 45; Glucose Fasting 172 mg/dL (60-99); Glucose Random 172 mg/dL (60-115); Potassium 3.8 mmol/L (3.3-5.1); Sodium 139 mmol/L (135-145)
[2024-04-19 07:20] VITALS: BP 111/55; PULSE 88; RESP 18; TEMP 36.6; O2SAT 96
[2024-04-19 07:38] LABS: Glucose, Whole Blood 146 mg/dL (60-115)
[2024-04-19 08:59] VITALS: PULSE 84
[2024-04-19] MEDS: Gabapentin 600 MG TABLET PO (08:59)
[2024-04-19] MEDS: Metoprolol Succinate ER 100 MG TAB.ER.24H PO (08:59)
[2024-04-19] MEDS: predniSONE 20 MG TABLET 40 MG PO (09:00)
[2024-04-19] MEDS: Aspirin Enteric Coated 81 MG TABLET.DR PO (09:00)
[2024-04-19] MEDS: Apixaban 5 MG TABLET PO (09:00)
[2024-04-19] MEDS: allopurinoL 100 MG TABLET PO (09:00)
[2024-04-19] MEDS: Atorvastatin Calcium 40 MG TABLET PO (09:00)
[2024-04-19] MEDS: Multivitamin TABLET 1 TAB PO (09:00)
[2024-04-19] MEDS: Sacubitril/Valsartan 49/51 1 TAB TABLET PO (09:00)
[2024-04-19] MEDS: 0.9 % Sodium Chloride Flush 3 ML SYRINGE IVFLUSH (09:00)
[2024-04-19] MEDS: Cholecalciferol (Vitamin D3) 25 MCG TABLET 50 MCG PO (09:00)
--- NOTE | 2024-04-19 09:47 | PM.DS ---
DS: Providers Provider Date of Service: 04/19/24 Date of admission: 04/15/24 23:19 Date of discharge: 04/19/24 Primary care physician: Cordelia Moraes PA-C DS: Diagnosis Discharge Diagnosis (1) Acute exacerbation of CHF (congestive heart failure): Status: Acute DS: Summary Hospital Course Hospital Course: from initial hpi: 68-year-old female with a PMH significant for?cardiomyopathy, HFrEF, ICD in place, persistent AFib on Eliquis, HTN, HLD, insulin-dependent type 2 diabetes, and hx of gout who presents to the ED with?multiple complaints, including abdominal pain, diarrhea, shortness a breath, and chest tightness. Patient states that symptoms began 4 days prior on Thursday when she experienced a mild stomachache and 1-2 episodes of diarrhea. Over the next 3 days symptoms worsened with increasing abdominal pain and 6-7 nonbloody diarrhea episodes per day. Late last night and into this morning patient also developed increasing shortness a breath, difficulty breathing, LYNCH, and chest tightness associated with deep breathing. Patient denies fever, chills. No cough. Patient comes from home, lives alone, and uses a walker for ambulation. Not on home oxygen. Of note, patient was recently hospitalized from 01/29-02/02 for similar symptoms. Hospitalization was complicated by hypotension and increase in creatinine secondary to IV Lasix use. Upon discharge patient's Lasix, Coreg, and Entresto were halved their normal dosage by Cardiology. In the ED pt was tachycardic up to 110, tachypneic up to 26, initially hypoxic at 87% on RA, and with low-grade fever of 99.1. Labs were significant for leukocytosis of 18.9, H&H 10.6/34.8, creatinine 1.44, magnesium 1.3, and BNP 2135. UA negative for UTI. Tested negative for flu, COVID, RSV. CXR showed stable cardiomegaly and central vascular congestion without large pleural effusions. CT?of abdomen and pelvis showing bilateral pleural effusions with right greater than left with patchy opacity in the lower lungs bilaterally that could reflect atelectasis or infiltrate/pneumonia. Also found slight dilation of left collecting system of uncertain significance without any stones seen. EKG demonstrated sinus tachycardia with occasional PVCs but without evidence of significant ST elevations or depressions. Pt was treated with ceftriaxone, IVF, magnesium, and Lasix. Pt will be admitted to the hospital for treatment and further evaluation of acute hypoxic respiratory failure in the setting of CHF exacerbation. hospital course: Patient was admitted for acute hypoxic respiratory failure secondary to acute on chronic systolic CHF. She was treated with IV Lasix and diuresed well. She was weaned to room air and shortness of breath improved. Course was complicated by acute right foot pain due to acute gout flare. Was given steroids and symptoms significantly improved. Will continue 3 more days of prednisone. For abdominal pain and diarrhea symptoms resolved. For CKD 3 remained stable. For diabetes was continued on basal bolus insulin. For paroxysmal atrial fibrillation was continued on metoprolol and Eliquis. For hyperlipidemia continued on statin. For GERD continued on PPI. Patient is feeling better will be discharged home. Time Attestation Discharge Coordination Time (in mins): 32 Quality: Safe Use of Opioids Does Pt have an Active Cancer Diagnosis on the Problem List?: No Quality: Stroke Does the patient have a stroke diagnosis?: No Physical Exam Vital Signs: Vital Signs: Last Vital Signs Temp 97.9 F 04/19/24 07:20 Pulse 84 04/19/24 08:59 Resp 18 04/19/24 07:20 BP 111/55 L 04/19/24 07:20 Pulse Ox 96 04/19/24 07:20 O2 Del Method Room Air 04/19/24 07:20 O2 Flow Rate 2 04/16/24 07:43 BMI result Body Mass Index 29.6 General: AO X 3, no acute distress Resp: CTA bilateral, no accessory muscles used CVS: S1,S2,RRR GI: soft, non tender, non distended Neuro: motor grossly intact, alert Psych: appropriate affect, appropriate insight right foot mild swelling resolved, much less tender DS: Data Data Completed and Pending Labs on day of discharge: Laboratory Results - last 24 hr 04/18/24 04/18/24 04/18/24 11:03 15:57 20:29 WBC RBC Hgb Hct MCV MCH MCHC RDW Plt Count MPV Absolute Nucleated RBC Nucleated RBC % (auto) Sodium Potassium Chloride Carbon Dioxide Anion Gap BUN Creatinine Estim Creat Clear Calc Estimated GFR POC Glucose 184 H 164 H 209 H Random Glucose Fasting Glucose Calcium 04/19/24 04/19/24 06:32 07:35 WBC 11.7 H RBC 3.93 L Hgb 9.6 L Hct 30.3 L MCV 77.1 L MCH 24.4 L MCHC 31.7 RDW 13.3 Plt Count 271 MPV 11.0 Absolute Nucleated RBC 0.000 Nucleated RBC % (auto) 0.0 Sodium 139 Potassium 3.8 Chloride 107 Carbon Dioxide 22 Anion Gap 14 BUN 22 H Creatinine 1.20 Estim Creat Clear Calc 37.1 Estimated GFR 45 POC Glucose 146 H Random Glucose 172 H Fasting Glucose 172 H Calcium 8.4 Preliminary micro results at discharge 04/15/24 15:37 Blood Culture - Preliminary Blood - Venous No growth after 48 hours. 04/15/24 15:37 Blood Culture - Preliminary Blood - Venous No growth after 48 hours. Discharge Plan Discharge Anticipated Discharge Date/Time: 04/19/24 09:45 Patient Disposition: Home, Self-Care Discharge Diagnosis: chf, gout Referrals: Cordelia Moraes PA-C [Primary Care Provider] - 1 Week Discharge Medications: New prednisone 20 mg Tablet 40 mg PO DAILY Qty: 6 0RF Continued (DME) lancing device [Adjustable Lancing Device] Misc See Rx Instructions .ROUTE .MEDSUPPLY Qty: 1 0RF Rx Instructions: 3 times a day (DME) lancets 28 gauge misc See Rx Instructions topical .MEDSUPPLY Qty: 200 3RF Rx Instructions: To test blood glucose 2 times a day (DME) pen needle, diabetic [BD Radha 2nd Gen Pen Needle] 32 gauge x 5/32 needle See Rx Instructions .ROUTE .MEDSUPPLY Qty: 50 6RF Rx Instructions: once a day atorvastatin 40 mg tablet 40 mg PO DAILY Qty: 90 0RF multivitamin with folic acid [Daily-Mallika (with folic acid)] 400 mcg tablet 1 tab PO DAILY silver sulfadiazine 1 % cream 1 appl topical DAILY PRN (Reason: ingrown nail) insulin glargine [Lantus Solostar U-100 Insulin] 100 unit/mL (3 mL) insulin pen 8 unit subcut BEDTIME Entresto 49-51 mg Tablet 1 tab PO BID Qty: 180 0RF Protocol: Hold for SBP< HOLD for SBP < : 90 furosemide [Lasix] 20 mg tablet 20 mg PO DAILY Qty: 90 0RF metoprolol succinate 100 mg tablet extended release 24 hr 100 mg PO DAILY Tradjenta 5 mg tablet 5 mg PO DAILY methocarbamol 750 mg tablet 750 mg PO BID PRN (Reason: Muscle Spasm) zolpidem 5 mg tablet 5 mg PO BEDTIME PRN (Reason: Insomnia) cholecalciferol (vitamin D3) 50 mcg (2,000 unit) capsule 50 mcg PO DAILY omeprazole 10 mg capsule,delayed release(DR/EC) 10 mg PO DAILY@0630 loratadine 10 mg tablet 10 mg PO DAILY PRN (Reason: Allergy Symptoms) aspirin 81 mg tablet,delayed release (DR/EC) 81 mg PO DAILY gabapentin 600 mg tablet 600 mg PO TID triamcinolone acetonide 0.5 % cream 1 appl topical BID PRN (Reason: flares) diclofenac sodium 1 % gel 1 ea topical QID PRN (Reason: Pain) fluticasone propionate 50 mcg/actuation spray,suspension 50 mcg intranasal DAILY PRN (Reason: allergies) Eliquis 5 mg tablet 5 mg PO BID allopurinol 100 mg tablet 100 mg PO DAILY Discharge Orders: Discharge Order (Routine); Ordered 04/19/24 Ordered By: Bob Bustos Diet: Advance to usual diet Activity on Discharge: As tolerated Stand Alone Forms: Patient Portal Discharge page Print Language: [place] Zealander Care Plan Goals: recovery Health Concerns: chf, gout Plan of Treatment: 3 more days prednisone, follow up with cardiology Assessment: see above
--- NOTE | 2024-04-19 09:48 | MHC.CM.PN ---
Patient has been medically cleared for dc to home today, self care. Last IMM addressed on 04/17/2024.
[2024-04-19 11:00] LABS: Glucose, Whole Blood 230 mg/dL (60-115)
[2024-04-19] MEDS: Insulin Lispro 100 UNIT/ML 3 ML VIAL SUBCUT (11:49)
== END 2024-04-19 13:13 | disposition home or self-care (01) | DRG 291 ==
LOC: HO.ED 15:54 → HO.EDOVER 23:37 → HO.IMC 04-16 18:08
PROVIDERS: Internal Medicine; Nurse Practitioner Family; Admitting Provider Student in an Organized Health Care Education/Training Program; Emergency Provider Emergency Medicine; PCP Physician Assistant; Visit Provider Internal Medicine
DX: I13.0 Hypertensive heart and chronic kidney disease with heart failure and stage 1 through stage 4 chronic kidney disease, or unspecified chronic kidney disease (principal); I50.23 Acute on chronic systolic (congestive) heart failure; J96.01 Acute respiratory failure with hypoxia; E78.5 Hyperlipidemia, unspecified; I48.0 Paroxysmal atrial fibrillation; K21.9 Gastro-esophageal reflux disease without esophagitis; M10.9 Gout, unspecified; E11.22 Type 2 diabetes mellitus with diabetic chronic kidney disease; N18.30 Chronic kidney disease, stage 3 unspecified; I42.9 Cardiomyopathy, unspecified; Z20.822 Contact with and (suspected) exposure to COVID-19; Z95.810 Presence of automatic (implantable) cardiac defibrillator; Z79.4 Long term (current) use of insulin; Z79.01 Long term (current) use of anticoagulants; Z79.51 Long term (current) use of inhaled steroids; Z79.899 Other long term (current) drug therapy
CPT/HCPCS: 0241U; 36415; 71045; 74176; 80048; 80053; 81003; 82947; 83605; 83690; 83735; 83880; 84484; 85025; 85027; 85610; 87040; 93005; 99285; J0696; J1940; J2919; J3475

== ENCOUNTER → 2024-04-15 23:19 | Outpatient (BNV) | payer OTHER, SELFPAY | PROVIDERS: Admitting Provider Student in an Organized Health Care Education/Training Program; Emergency Provider Emergency Medicine; PCP Physician Assistant; Visit Provider Internal Medicine | DX: I50.23 Acute on chronic systolic (congestive) heart failure (principal); J96.01 Acute respiratory failure with hypoxia | CPT/HCPCS: 99223; 99232; 99233; 99239 ==

== ENCOUNTER 2024-04-25 13:07 | Outpatient (AMB) | payer OTHER, SELFPAY ==
--- NOTE | 2024-04-25 13:09 | HO.NEPHOV ---
Vital Signs 04/25/24 13:10 Height 4 ft 11 in Weight 138 lb BMI 27.9 BP 90/68 Blood Pressure Location Lt brachial Position Sitting Pulse 90 Pulse Source Pulse Oximeter Pulse Oximetry (%) 97 Oxygen Delivery Method Room Air Intake Visit Reasons: CKD/ Conf Geophysical Support Specialist Required: Yes Geophysical Support Specialist Name: Damian cabello Accompanied by: Self / Same As Patient Allergies egg [EGG] Allergy (Intermediate, Verified 04/25/24 13:12) RASH Fish Containing Products Allergy (Intermediate, Verified 04/25/24 13:12) RASH oxycodone [OXYCODONE] Allergy (Intermediate, Verified 04/25/24 13:12) RASH acetaminophen [From PERCOCET] Allergy (Unknown, Verified 04/25/24 13:12) RASH/ITCHING codeine [CODEINE] Allergy (Unknown, Verified 04/25/24 13:12) ITCHING hydrocodone [From VICODIN] Allergy (Unknown, Verified 04/25/24 13:12) UNKNOWN lisinopril [LISINOPRIL] Allergy (Unknown, Verified 04/25/24 13:12) UNKNOWN metoclopramide [From REGLAN] Allergy (Unknown, Verified 04/25/24 13:12) UNKNOWN naproxen [Naprosyn] Allergy (Unknown, Verified 04/25/24 13:12) Unknown tramadol Allergy (Unknown, Verified 04/25/24 13:12) Unknown Medication List - Last Reconciled 04/25/24 by Tavares Cutler MD allopurinol 100 mg PO DAILY apixaban (Eliquis) 5 mg PO BID aspirin 81 mg PO DAILY atorvastatin 40 mg PO DAILY cholecalciferol (vitamin D3) 50 mcg PO DAILY diclofenac sodium 1% 1 ea topical QID PRN fluticasone propionate 50 mcg/actuation 50 mcg intranasal DAILY PRN furosemide (Lasix) 20 mg PO DAILY gabapentin 600 mg PO TID insulin glargine (Lantus Solostar U-100 Insulin) 8 units subcut BEDTIME lancets To test blood glucose 2 times a day lancing device (Adjustable Lancing Device) 3 times a day linagliptin (Tradjenta) 5 mg PO DAILY loratadine 10 mg PO DAILY PRN methocarbamol 750 mg PO BID PRN metoprolol succinate ER 100 mg PO DAILY multivitamin with folic acid 400 mcg (Daily-Mallika (with folic acid)) 1 tab PO DAILY omeprazole 10 mg PO DAILY@0630 pen needle, diabetic (BD Radha 2nd Gen Pen Needle) once a day sacubitril-valsartan 97-103 mg (Entresto) 1 tab PO BID silver sulfadiazine 1% 1 appl topical DAILY PRN triamcinolone acetonide 0.5% 1 appl topical BID PRN zolpidem 5 mg PO BEDTIME PRN HPI Comments Details: 68 yr old woman with DM and HTN with CKD Complains of pain and swelling of the right foot She had a course of prednisone - but not taking it Echocardiogram showed severely dilated left ventricle with severe global hypokinesis Today she has no shortness of breath. She is compliant with all her medications. No lightheadedness. Geophysical Support Specialist service was used Another episode of gout Recently hospitalized for dyspnea in January 29 [facility] Medical History Pericardial cyst CHF (congestive heart failure) CHF (congestive heart failure) Hypoglycemia unawareness associated with type 2 diabetes mellitus Vitamin D deficiency Diabetic neuropathy associated with type 2 diabetes mellitus CKD (chronic kidney disease) stage 3, GFR 30-59 ml/min Hypertension Dyslipidemia penitentiary (current) use of insulin Non-toxic multinodular goiter Diabetes type 2, uncontrolled Surgical History Hx of biopsy AICD (automatic cardioverter/defibrillator) present Hx of appendectomy Hx of hysterectomy Family History Father Alcoholism Diabetes Mother Arthritis Hypertension Social History Household Members: None Household Members Other:: Lives by self Housing: Apartment Do you presently have visiting nurse or other home services: Yes (Medicare, [employer] SUPER[employer]OR who is patient's daughter and Nurse) Unable to assess alcohol history related to: Unknown Alcohol intake: current Alcohol intake frequency: does not drink Patient Tobacco Use Status: Never used Tobacco e-Cigarette/Vaping Use: Never Used Second Hand Smoke Exposure: No service: No Physical Exam Vital Signs: Last Vital Signs Pulse 90 04/25/24 13:10 BP 90/68 04/25/24 13:10 Pulse Ox 97 04/25/24 13:10 Oxygen Delivery Method Room Air 04/25/24 13:10 BMI result Body Mass Index 27.9 Neck Neck: Yes supple Resp Auscultation: clear to auscultation bilaterally Cardio Palpation: no palpable S3 Heart sounds: no rubs GI Palpation (GI): Soft to palpation Auscultation: normal bowel sounds Neuro Motor exam (neuro): no asterixis Results Reviewed Nephrology Results: Hgb 9.6 g/dl (12.0-16.0) L 04/19/24 WBC 11.7 X10*3/uL (4.8-10.8) H 04/19/24 Plt Count 271 X10*3/uL (160-400) 04/19/24 Sodium 139 mmol/L (135-145) 04/19/24 Potassium 3.8 mmol/L (3.3-5.1) 04/19/24 Chloride 107 mmol/L (96-108) 04/19/24 Carbon Dioxide 22 mmol/L (22-29) 04/19/24 BUN 22 mg/dL (9-16) H 04/19/24 Creatinine 1.20 mg/dL (0.5-1.4) 04/19/24 Calcium 8.4 mg/dL (8.4-10.2) 04/19/24 Urine Protein Negative mg/dL (Neg-Trace) 04/15/24 Urine Creatinine 130.19 mg/dL 01/26/24 Assessment & Plan Assessment & Plan (1) CKD (chronic kidney disease) stage 3, GFR 30-59 ml/min: Code(s): N18.30 - Chronic kidney disease, stage 3 unspecified Category: Medical Qualifiers: Chronic kidney disease stage 3 subtype: unspecified whether 3a or 3b Qualified Code(s): N18.30 - Chronic kidney disease, stage 3 unspecified Plan 68-year-old woman with a longstanding hypertension diabetes mellitus with CKD. She has stage III CKD. Renal function back to baseline. Serum creatinine 1.28. LALO has resolved. She appears euvolemic. Continue current dose of diuretics. Encouraged her to stay on low-sodium diet. Continue with current medications including SGLT2 inhibitors and no changes were made. Maintain A1c less than 7% Avoid nephrotoxic agents including NSAIDs. Gout On Allopurinol Does not want to take prednisone. Encouraged her to follow up with Rheumatology. Coding Level of Care Code Est Pt Level 4 (69384) Diagnoses Stage 3 chronic kidney disease, unspecified whether stage 3a or 3b CKD N18.30 Chronic kidney disease stage 3 subtype: unspecified whether 3a or 3b
[2024-04-25 13:10] VITALS: BP 90/68; PULSE 90; O2SAT 97; BMI 27.9
== END 2024-04-25 13:30 | disposition home or self-care (01) ==
PROVIDERS: PCP Physician Assistant; Visit Provider Internal Medicine Hypertension Specialist
DX: I12.9 Hypertensive chronic kidney disease with stage 1 through stage 4 chronic kidney disease, or unspecified chronic kidney disease (principal); E11.22 Type 2 diabetes mellitus with diabetic chronic kidney disease; N18.30 Chronic kidney disease, stage 3 unspecified
CPT/HCPCS: 99214

== ENCOUNTER → 2024-04-25 13:07 | Outpatient (BNVA) | payer OTHER, SELFPAY | PROVIDERS: PCP Physician Assistant; Visit Provider Internal Medicine Hypertension Specialist | DX: N18.30 Chronic kidney disease, stage 3 unspecified (principal) | CPT/HCPCS: 99212 ==

== ENCOUNTER 2024-04-30 14:18 | Inpatient (IN) | payer OTHER, SELFPAY ==
--- NOTE | ~2024-04-30 | XR_ITS ---
EXAMINATION: XR CHEST CLINICAL INFORMATION: History of CHF and malaise COMPARISON: Chest radiograph 04/15/[address] abdomen pelvis 04/15/2024 TECHNIQUE: 2 views of the chest were obtained. FINDINGS: Compared to the prior study, there is been some improvement in interstitial prominence and vascular congestion. Some mild central vascular congestion remains. Bilateral subpulmonic pleural effusions are still suspected the present as the appearance of the diaphragms is not very different when compared to the 04/15/2024 study when a moderate right and small left effusion was present on the CT scan performed the same day. Again seen is a left chest wall single lead pacemaker/defibrillator. XR/XR chest 2V IMPRESSION: Improving CHF with some residual central vascular congestion and bilateral pleural effusions. Electronically signed by: Amilcar Kothari MD 04/30/2024 06:19 PM EDT
[2024-04-30 14:23] VITALS: BP 108/60; PULSE 93; RESP 16; TEMP 36.5; O2SAT 94; BMI 36.0
--- NOTE | 2024-04-30 14:26 | ED.ABDPAIN ---
HPI - Abdominal Pain General Chief Complaint: Abdominal Pain Stated Complaint: diff breathing diarrhea Time Seen by Provider: 04/30/24 17:54 Source: patient Limitations: language barrier History of Present Illness ED Provider: Gracie Boucher PA-C HPI narrative: 69-year-old female with a history of cardiomyopathy, HFrEF, ICD in place, persistent AFib on Eliquis, HTN, HLD, insulin-dependent type 2 diabetes, with recent hospital admission on April 19 for heart failure exacerbation, presents with ongoing dyspnea with exertion. Associated unintentional weight gain of 10-15 lb. and orthopnea. Patient states her pedal edema is at her baseline. Patient denies chest pain, new onset cough or cold symptoms, no fevers. Related Data Home Medications ?Medication ?Instructions ?Recorded ?Confirmed aspirin 81 mg tablet,delayed 81 mg PO DAILY 06/04/20 04/25/24 release cholecalciferol (vitamin D3) 50 50 mcg PO DAILY 06/04/20 04/25/24 mcg (2,000 unit) capsule gabapentin 600 mg tablet 600 mg PO TID 06/04/20 04/25/24 loratadine 10 mg tablet 10 mg PO DAILY PRN Allergy Symptoms 06/04/20 04/25/24 methocarbamol 750 mg tablet 750 mg PO BID PRN Muscle Spasm 06/04/20 04/25/24 omeprazole 10 mg capsule,delayed 10 mg PO DAILY@0630 06/04/20 04/25/24 release zolpidem 5 mg tablet 5 mg PO BEDTIME PRN Insomnia 06/04/20 04/25/24 apixaban 5 mg tablet (Eliquis) 5 mg PO BID 01/05/23 04/25/24 diclofenac sodium 1 % topical gel 1 ea topical QID PRN Pain 01/05/23 04/25/24 fluticasone propionate 50 50 mcg intranasal DAILY PRN 01/05/23 04/25/24 mcg/actuation nasal allergies spray,suspension triamcinolone acetonide 0.5 % 1 appl topical BID PRN flares 01/05/23 04/25/24 topical cream allopurinol 100 mg tablet 100 mg PO DAILY 01/26/24 04/25/24 insulin glargine 100 unit/mL (3 8 unit subcut BEDTIME 01/31/24 04/25/24 mL) subcutaneous pen (Lantus Solostar U-100 Insulin) multivitamin with folic acid 400 1 tab PO DAILY 01/31/24 04/25/24 mcg tablet (Daily-Mallika (with folic acid)) silver sulfadiazine 1 % topical 1 appl topical DAILY PRN ingrown 01/31/24 04/25/24 cream nail linagliptin 5 mg tablet (Tradjenta) 5 mg PO DAILY 04/15/24 04/25/24 metoprolol succinate 100 mg 100 mg PO DAILY 04/15/24 04/25/24 tablet,extended release 24 hr sacubitril 97 mg-valsartan 103 mg 1 tab PO BID 04/25/24 04/25/24 tablet (Entresto) Previous Rx's ?Medication ?Instructions ?Recorded lancing device (Adjustable Lancing #1 ea 02/01/21 Device) lancets 28 gauge #200 ea 05/02/21 pen needle, diabetic 32 gauge x #50 ea 01/08/22 (BD Radha 2nd Gen Pen Needle) atorvastatin 40 mg tablet 40 mg PO DAILY #90 tabs 08/21/23 furosemide 20 mg tablet (Lasix) 20 mg PO DAILY #90 tabs 02/03/24 Allergies Allergy/AdvReac Type Severity Reaction Status Date / Time egg [EGG] Allergy Intermediate RASH Verified 04/30/24 14:29 Fish Containing Products Allergy Intermediate RASH Verified 04/30/24 14:29 oxycodone [OXYCODONE] Allergy Intermediate RASH Verified 04/30/24 14:29 acetaminophen [From PERCOCET] Allergy Unknown RASH/ITCHIN Verified 04/30/24 14:29 G codeine [CODEINE] Allergy Unknown ITCHING Verified 04/30/24 14:29 hydrocodone [From VICODIN] Allergy Unknown UNKNOWN Verified 04/30/24 14:29 lisinopril [LISINOPRIL] Allergy Unknown UNKNOWN Verified 04/30/24 14:29 metoclopramide [From REGLAN] Allergy Unknown UNKNOWN Verified 04/30/24 14:29 naproxen [Naprosyn] Allergy Unknown Unknown Verified 04/30/24 14:29 tramadol Allergy Unknown Unknown Verified 04/30/24 14:29 Review of Systems Review of Systems Yes all other systems are reviewed and are negative Constitutional: Denies fever(s) Cardiovascular: Denies chest pain, Reports pedal edema and Reports dyspnea on exertion Respiratory: Reports dyspnea on exertion Gastrointestinal: Denies abdominal pain [facility] Past Medical History Attestation statement: The following information was validated with the patient. 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 Non-toxic multinodular goiter Diabetes type 2, uncontrolled Surgical History Hx of biopsy AICD (automatic cardioverter/defibrillator) present Hx of appendectomy Hx of hysterectomy Family History Family History Father Alcoholism Diabetes Mother Arthritis Hypertension Social History Social History Household Members: None Household Members Other:: Lives by self Housing: Apartment Do you presently have visiting nurse or other home services: Yes (Medicare, COMMUNITY RELATIONS MANAGER who is patient's daughter and Nurse) Unable to assess alcohol history related to: Unknown Alcohol intake: current Alcohol intake frequency: does not drink Patient Tobacco Use Status: Never used Tobacco Smoked in Last 30 Days: No e-Cigarette/Vaping Use: Never Used Second Hand Smoke Exposure: No Use of substances other than those prescribed or required for medical reasons: No Advance Directives: No Advance Directives Information Provided: No Do you have a plan to hurt others: No Plan Nutrition Risks: No Nutritional Risk service: No Physical Exam ED Vital Signs: Vital Signs - 24 hr 04/30/24 14:23 04/30/24 18:59 04/30/24 19:48 Temperature 97.7 F 98.4 F Pulse Rate 93 82 71 Respiratory Rate 16 14 20 Blood Pressure 108/60 111/57 L 128/62 Pulse Oximetry 94 93 93 Oxygen Delivery Method Room Air Room Air Room Air BMI result Body Mass Index 36.0 Const Other: Alert, overall well in appearance Orientation/consciousness: patient oriented x3 Resp Other: Tachypneic, lungs are clear to auscultation, diminished at the bases Cardio Other: Trace pedal edema Skin Other: Warm dry no rash Neuro General: patient oriented x3, no focal motor deficits and CN's II-XI intact bilaterally Psych Other: Calm cooperative Course Course Course Narrative: This is an RME: Additional HPI, ROS, PE not included below will be deferred to primary provider. [facility] assessment and note performed by: Mary Cotto PA-C This is a 69 year old faroese speaking female, PMH significant for?cardiomyopathy, HFrEF, ICD in place, persistent AFib on Eliquis, HTN, HLD, insulin-dependent type 2 diabetes, and hx of gout who presents to the ER with a complaints of abdominal pain and diarrhea. Recent hospitalization for CHF and respiratory failure. No recent antibiotic use. Plan: Labs, EKG Medical Decision Making Medical Decision Making MDM Narrative: 69-year-old female with a history of cardiomyopathy, HFrEF, ICD in place, persistent AFib on Eliquis, HTN, HLD, insulin-dependent type 2 diabetes, with recent hospital admission on April 19 for heart failure exacerbation, presents with ongoing dyspnea with exertion. Associated unintentional weight gain of 10-15 lb. and orthopnea. Patient states her pedal edema is at her baseline. Patient denies chest pain, new onset cough or cold symptoms, no fevers. Problem: Known heart failure, AFib, hypertension, diabetes History: Per patient I have considered the following differential diagnoses: Heart failure exacerbation, ACS, pneumonia, viral syndrome, PE Plan: Performed bedside echo, it is known that the patient already has reduced EF, her IVC is dilated, she has numerous B-lines suggesting pulmonary edema. The patient is assessment began in triage from [facility]. Screening labs including a BNP, chest x-ray and EKG were completed. I am adding on a troponin. I do not think this is ACS, she does not have chest pain, however her dyspnea with exertion could be a cardiac equivalent. It is odd, she is not overtly hypertensive, her vitals obtained from triage maybe skewed, we will be repeating. In the meantime I will start IV Lasix 20 mg. She will be admitted. Thought about pneumonia and viral syndrome, however she does not have any active cough or cold symptoms, no fevers. Also considered PE, however she is not tachycardic, she is not hypoxic, there are no objective signs symptoms on exam to suggest a DVT, I am deferring a dimer as it is not clinically indicated. And to note, per my bedside ultrasound, I did not see significant RV strain. I have independently reviewed the following tests: Labs: Slight leukocytosis, not anemic, magnesium 1.5 , BNP 2865, 1st troponin 3.9, we will repeat giving 2 gm Mg2+ EKG: Sinus rhythm, rate of 87, occasional PVCs, incomplete left bundle is new, some nonspecific T-wave abnormalities, QTC 478 is increased from prior study Chest x-ray:XR CHEST CLINICAL INFORMATION: History of CHF and malaise COMPARISON: Chest radiograph 04/15/[address] abdomen pelvis 04/15/2024 TECHNIQUE: 2 views of the chest were obtained. FINDINGS: Compared to the prior study, there is been some improvement in interstitial prominence and vascular congestion. Some mild central vascular congestion remains. Bilateral subpulmonic pleural effusions are still suspected the present as the appearance of the diaphragms is not very different when compared to the 04/15/2024 study when a moderate right and small left effusion was present on the CT scan performed the same day. Again seen is a left chest wall single lead pacemaker/defibrillator. XR/XR chest 2V IMPRESSION: Improving CHF with some residual central vascular congestion and bilateral pleural effusions. Electronically signed by: Amilcar Kothari MD 04/30/2024 06:19 PM EDT RP Lab Data 04/30/24 14:44 04/30/24 14:44 Labs: Lab Results 04/30/24 04/30/24 Range/Units 14:44 19:43 WBC 11.7 H (4.8-10.8) X10*3/uL RBC 4.24 (4.20-5.50) X10*6/uL Hgb 10.5 L (12.0-16.0) g/dl Hct 33.1 L (37.0-47.0) % MCV 78.1 L (80.0-98.0) fL MCH 24.8 L (27.0-33.0) pg MCHC 31.7 (31.0-35.0) g/dl RDW 14.4 (11.0-16.0) % Plt Count 315 (160-400) X10*3/uL MPV 10.2 (9.4-12.3) fL Immature Gran % (Auto) 0.4 (0.0-0.4) % Neut % (Auto) 60.6 (45-73) % Lymph % (Auto) 23.9 (20-40) % [place] % (Auto) 12.9 H (2-11) % Eos % (Auto) 1.3 (0-4) % Baso % (Auto) 0.9 (0-2) % Lymph # (Auto) 2.8 (1.2-4.9) X10*3/uL [place] # (Auto) 1.5 H (0.1-1.2) X10*3/uL Eos # (Auto) 0.2 (0.0-0.4) X10*3/uL Baso # (Auto) 0.1 (0.0-0.2) X10*3/uL Abs Immat Gran (auto) 0.05 H (0.00-0.03) X10*3/uL Absolute Neuts (auto) 7.1 (2.0-8.3) x10*3/uL Absolute Nucleated RBC 0.000 (0.0-0.012) X10*3/uL Nucleated RBC % (auto) 0.0 (0.0-0.2) /100WBC Sodium 141 (135-145) mmol/L Potassium 3.7 (3.3-5.1) mmol/L Chloride 105 (96-108) mmol/L Carbon Dioxide 25 (22-29) mmol/L Anion Gap 15 (12-20) BUN 17 H (9-16) mg/dL Creatinine 1.60 H (0.5-1.4) mg/dL Estim Creat Clear Calc 30.9 Estimated GFR 32 Random Glucose 124 H (60-115) mg/dL Calcium 8.7 (8.4-10.2) mg/dL Magnesium 1.5 L (1.6-2.6) mg/dL Total Bilirubin 0.8 (0.0-1.0) mg/dL Direct Bilirubin 0.3 (0.0-0.5) mg/dL AST 21 (5-31) U/L ALT 29 (0-31) U/L Alkaline Phosphatase 69 (39-117) U/L Troponin I High Sens 3.9 4.8 (<3.5-17.0) ng/L B-Natriuretic Peptide 2865 H (<100) pg/mL Total Protein 6.3 L (6.5-8.0) g/dL Albumin 3.4 L (3.5-5.0) g/dL Lipase 9 (8-78) U/L Influenza Type A (PCR) NEGATIVE (Negative) Influenza Type B (PCR) NEGATIVE (Negative) RSV RNA Qual (PCR) NEGATIVE (Negative) SARS-CoV-2 RNA (RT-PCR) NEGATIVE (Negative) Medications Administered Generic Name Dose Route Start Last Admin Trade Name Huan PRN Reason Stop Dose Admin Apixaban 5 mg 04/30/24 21:00 04/30/24 22:26 Apixaban 5 Mg Tablet PO 5 mg BID MIRANDA Administration Insulin Glargine 6 unit 04/30/24 21:00 04/30/24 22:26 Insulin Glargine,Hum.Rec.Anlog 100 Unit/Ml 10 Ml Vial SUBCUT 6 unit BEDTIME MIRANDA Administration Insulin Human Lispro 0 unit 04/30/24 21:00 04/30/24 22:22 Insulin Lispro 100 Unit/Ml 3 Ml Vial SUBCUT Not Given [facility] Protocol Melatonin 6 mg 04/30/24 20:04 05/01/24 00:50 Melatonin 3 Mg Tablet PO 6 mg BEDTIME PRN Administration Insomnia Sodium Chloride 3 ml 05/01/24 00:00 05/01/24 00:49 0.9 % Sodium Chloride Flush 3 Ml Syringe IVFLUSH 3 ml QSHIFT MIRANDA Administration Discontinued Medications Generic Name Dose Route Start Last Admin Trade Name Huan PRN Reason Stop Dose Admin Furosemide 20 mg 04/30/24 18:16 04/30/24 19:49 Furosemide 20 Mg/2 Ml Vial IVPUSH 04/30/24 18:17 20 mg ONCE ONE Administration Protocol Furosemide 20 mg 04/30/24 20:04 04/30/24 21:19 Furosemide 20 Mg/2 Ml Vial IVPUSH 04/30/24 20:05 20 mg ONCE ONE Administration Protocol Magnesium Sulfate/Dextrose 1 gm in 100 mls @ 100 mls/hr 04/30/24 20:16 04/30/24 22:54 Magnesium Sulfate/D5w IV 04/30/24 21:15 Infused ONCE ONE Infusion Discharge Plan Discharge Clinical Impression: Acute exacerbation of CHF (congestive heart failure) Patient Disposition: Admitted As Inpatient
--- NOTE | 2024-04-30 14:28 | ECG_ITS ---
Test Reason : chest titness Blood Pressure : / mmHG Vent. Rate : 087 BPM Atrial Rate : 087 BPM P-R Int : 160 ms QRS Dur : 120 ms QT Int : 398 ms P-R-T Axes : 031 -31 062 degrees QTc Int : 478 ms Sinus rhythm with occasional Premature ventricular complexes and Fusion complexes Left axis deviation Incomplete left bundle branch block Minimal voltage criteria for LVH, may be normal variant ( Ar product ) Nonspecific T wave abnormality Abnormal ECG When compared with ECG of 15-APR-2024 14:30, Fusion complexes are now Present Referred By: Mary Cotto Electronically Signed By:TRACY LANTIGUA
[2024-04-30 14:50] LABS: MANUAL DIFF FLAG NO
[2024-04-30 14:51] LABS: Basophils Absolute Auto 0.1 X10*3/uL (0.0-0.2); Basophils Percent Auto 0.9 % (0-2); Eosinophils Absolute Auto 0.2 X10*3/uL (0.0-0.4); Eosinophils Percent Auto 1.3 % (0-4); Hematocrit 33.1 % (37.0-47.0); Hemoglobin 10.5 g/dl (12.0-16.0); Imm Gran Abs Auto 0.05 X10*3/uL (0.00-0.03); Imm Gran Pct Auto 0.4 % (0.0-0.4); Lymphocytes Absolute Auto 2.8 X10*3/uL (1.2-4.9); Lymphocytes Percent Auto 23.9 % (20-40); Mean Corpuscular HGB Conc 31.7 g/dl (31.0-35.0); Mean Corpuscular Hemoglobin 24.8 pg (27.0-33.0); Mean Corpuscular Volume 78.1 fL (80.0-98.0); Mean Platelet Volume 10.2 fL (9.4-12.3); Monocytes Absolute Auto 1.5 X10*3/uL (0.1-1.2); Monocytes Percent Auto 12.9 % (2-11); Neutrophils Absolute Auto 7.1 x10*3/uL (2.0-8.3); Neutrophils Percent Auto 60.6 % (45-73); Platelet Count 315 X10*3/uL (160-400); Red Blood Count 4.24 X10*6/uL (4.20-5.50); Red Cell Distribution Width 14.4 % (11.0-16.0); White Blood Count 11.7 X10*3/uL (4.8-10.8)
[2024-04-30 15:05] LABS: Alanine Aminotransferase 29 U/L (0-31); Albumin Level 3.4 g/dL (3.5-5.0); Alkaline Phosphatase 69 U/L (39-117); Anion Gap 15 (12-20); Aspartate Amino Transferase 21 U/L (5-31); Bilirubin Direct 0.3 mg/dL (0.0-0.5); Bilirubin Total 0.8 mg/dL (0.0-1.0); Blood Urea Nitrogen 17 mg/dL (9-16); Calcium 8.7 mg/dL (8.4-10.2); Carbon Dioxide 25 mmol/L (22-29); Chloride 105 mmol/L (96-108); Creatinine Clr Calc Pharmacy 30.9; Estimated Glomerular Filt Rate 32; Glucose Random 124 mg/dL (60-115); Lipase 9 U/L (8-78); Magnesium 1.5 mg/dL (1.6-2.6); Potassium 3.7 mmol/L (3.3-5.1); Sodium 141 mmol/L (135-145); Total Protein 6.3 g/dL (6.5-8.0)
[2024-04-30 15:10] LABS: B Type Natriuretic Peptide 2865 pg/mL (<100)
[2024-04-30 15:13] LABS: Troponin-I High Sensitivity 3.9 ng/L (<3.5-17.0)
[2024-04-30 15:28] LABS: Influenza A PCR NEGATIVE (Negative); Influenza B PCR NEGATIVE (Negative); Resp Syncy Virus RNA Qual PCR NEGATIVE (Negative); SARS COV2 PCR INHOUSE NEGATIVE (Negative)
[2024-04-30 18:59] VITALS: BP 111/57; PULSE 82; RESP 14; TEMP 36.9; O2SAT 93
[2024-04-30 19:48] VITALS: BP 128/62; PULSE 71; RESP 20; O2SAT 93
--- NOTE | 2024-04-30 19:48 | PC.NURSE ---
med delayed, pt a hard stick. IV placed 20g RAC
[2024-04-30] MEDS: Furosemide 20 MG/2 ML VIAL IVPUSH ×2 (19:49→21:19)
--- NOTE | 2024-04-30 20:08 | P.HPHOSP_ITS ---
History of Present Illness Date of Service: 04/30/24 <HAROON Car - Last Filed: 04/30/24 20:27> Attending physician on admission: Stephanie Gallardo <HAROON Car - Last Filed: 04/30/24 20:27> Chief Complaint: sob <HAROON Car - Last Filed: 04/30/24 20:27> 68-year-old female with a PMH significant for?cardiomyopathy, HFrEF, ICD in place, paroxysmal AFib on Eliquis, HTN, HLD, insulin-dependent type 2 diabetes, and hx of gout who presents to the ED with?multiple complaints, including abdominal pain, diarrhea and dyspnea. She was recently admitted from 04/15-04/19 due to acute chf exacerbation, was diuresed and was discharged on lasix 20mg daily. She states she never fully felt better following her hospitalization. She feels she has gained weight- since last admission, appears to have gained 14kg (?accuracy). She is reporting LYNCH and orthopnea as well as BLE edema. She states she has had 3-4 episodes of watery diarrhea today. No recent abx use. Has a dry cough with occassional pleuritic cp. No fevers, chills, abd pain, n/v, melena, hematochezia, lightheadedness, wheezing, palpitations, or chest pain. She reports she did call her PCP who increased her Lasix to 20 mg twice daily and added spironolactone. Since arrival, vital signs have been stable. She has a mild leukocytosis of 11.7 as well as microcytic anemia with H/H 10.5/33.1%. Creatinine 1.60, BUN 17, electrolyte levels normal except for magnesium 1.5. Troponin within normal limits. BNP 2865. Negative for COVID, flu, RSV. Chest x-ray shows improving CHF with some residual central vascular congestion and bilateral pleural effusions. EKG shows sinus rhythm with occasional PVCs and fusion complexes with incomplete left bundle branch block and nonspecific T-wave abnormality. In the ED, has been given 20 mg IV Lasix. 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 Non-toxic multinodular goiter Diabetes type 2, uncontrolled <HAROON Car - Last Filed: 04/30/24 20:27> Family History: Family History Father Alcoholism Diabetes Mother Arthritis Hypertension <HAROON Car - Last Filed: 04/30/24 20:27> Surgical History: Surgical History Hx of biopsy AICD (automatic cardioverter/defibrillator) present Hx of appendectomy Hx of hysterectomy <HAROON Car - Last Filed: 04/30/24 20:27> Social History: Social History Household Members: None Household Members Other:: Lives by self Housing: Apartment Do you presently have visiting nurse or other home services: Yes (Medicare, [employer] who is patient's daughter and Nurse) Unable to assess alcohol history related to: Unknown Alcohol intake: current Alcohol intake frequency: does not drink Patient Tobacco Use Status: Never used Tobacco e-Cigarette/Vaping Use: Never Used Second Hand Smoke Exposure: No Advance Directives: No Advance Directives Information Provided: No Do you have a plan to hurt others: No Plan service: No <HAROON Car - Last Filed: 04/30/24 20:27> Meds Allergies/Adverse reactions: Allergies Allergy/AdvReac Type Severity Reaction Status Date / Time egg [EGG] Allergy Intermediate RASH Verified 04/30/24 14:29 Fish Containing Products Allergy Intermediate RASH Verified 04/30/24 14:29 oxycodone [OXYCODONE] Allergy Intermediate RASH Verified 04/30/24 14:29 acetaminophen [From PERCOCET] Allergy Unknown RASH/ITCHIN Verified 04/30/24 14:29 G codeine [CODEINE] Allergy Unknown ITCHING Verified 04/30/24 14:29 hydrocodone [From VICODIN] Allergy Unknown UNKNOWN Verified 04/30/24 14:29 lisinopril [LISINOPRIL] Allergy Unknown UNKNOWN Verified 04/30/24 14:29 metoclopramide [From REGLAN] Allergy Unknown UNKNOWN Verified 04/30/24 14:29 naproxen [Naprosyn] Allergy Unknown Unknown Verified 04/30/24 14:29 tramadol Allergy Unknown Unknown Verified 04/30/24 14:29 <HAROON Car - Last Filed: 04/30/24 20:27> Home medications: Home Medications ?Medication ?Instructions ?Recorded ?Confirmed ?Last Taken ?Type aspirin 81 mg tablet,delayed 81 mg PO DAILY 06/04/20 04/25/24 04/14/24 History release cholecalciferol (vitamin D3) 50 50 mcg PO DAILY 06/04/20 04/25/24 04/14/24 History mcg (2,000 unit) capsule gabapentin 600 mg tablet 600 mg PO TID 06/04/20 04/25/24 04/14/24 History loratadine 10 mg tablet 10 mg PO DAILY PRN Allergy Symptoms 06/04/20 04/25/24 Unknown History methocarbamol 750 mg tablet 750 mg PO BID PRN Muscle Spasm 06/04/20 04/25/24 Unknown History omeprazole 10 mg capsule,delayed 10 mg PO DAILY@0630 06/04/20 04/25/24 04/14/24 History release zolpidem 5 mg tablet 5 mg PO BEDTIME PRN Insomnia 06/04/20 04/25/24 Unknown History apixaban 5 mg tablet (Eliquis) 5 mg PO BID 01/05/23 04/25/24 04/14/24 History diclofenac sodium 1 % topical gel 1 ea topical QID PRN Pain 01/05/23 04/25/24 Unknown History fluticasone propionate 50 50 mcg intranasal DAILY PRN 01/05/23 04/25/24 Unknown History mcg/actuation nasal allergies spray,suspension triamcinolone acetonide 0.5 % 1 appl topical BID PRN flares 01/05/23 04/25/24 Unknown History topical cream allopurinol 100 mg tablet 100 mg PO DAILY 01/26/24 04/25/24 04/14/24 History insulin glargine 100 unit/mL (3 8 unit subcut BEDTIME 01/31/24 04/25/24 04/14/24 History mL) subcutaneous pen (Lantus Solostar U-100 Insulin) multivitamin with folic acid 400 1 tab PO DAILY 01/31/24 04/25/24 04/14/24 History mcg tablet (Daily-Mallika (with folic acid)) silver sulfadiazine 1 % topical 1 appl topical DAILY PRN ingrown 01/31/24 04/25/24 Unknown History cream nail linagliptin 5 mg tablet (Tradjenta) 5 mg PO DAILY 04/15/24 04/25/24 04/14/24 History metoprolol succinate 100 mg 100 mg PO DAILY 04/15/24 04/25/24 04/14/24 History tablet,extended release 24 hr sacubitril 97 mg-valsartan 103 mg 1 tab PO BID 04/25/24 04/25/24 Unknown History tablet (Entresto) <HAROON Car - Last Filed: 04/30/24 20:27> Physical Exam 2 Vital Signs and Narrative: Vital Signs: Last Vital Signs Temp 98.4 F 04/30/24 18:59 Pulse 71 04/30/24 19:48 Resp 20 04/30/24 19:48 BP 128/62 04/30/24 19:48 Pulse Ox 93 04/30/24 19:48 O2 Del Method Room Air 04/30/24 19:48 BMI result Body Mass Index 36.0 <HAROON Car - Last Filed: 04/30/24 20:27> Constitutional - Awake and Alert, No apparent distress Eyes - PERRLA, EOMI Cardiovascular - S1S2, RRR, No edema Respiratory - Normal lung expansion, Normal respiratory effort, No respiratory distress, bibasilar crackles, +orthopnea Gastrointestinal - NT / ND; +BS; No rebound or guarding Extremities - no calf tenderness bilaterally, no swelling Skin - Warm/Dry Neurological - Alert & oriented x3 Psychological - Appropriate affect <HAROON Car - Last Filed: 04/30/24 20:27> Results Labs CBC and Chem 7: 04/30/24 14:44 04/30/24 14:44 <HAROON Car - Last Filed: 04/30/24 20:27> Labs: Laboratory Results - last 24 hr 04/30/24 14:44 MCV 78.1 L MCH 24.8 L MCHC 31.7 RDW 14.4 Plt Count 315 MPV 10.2 Immature Gran % (Auto) 0.4 Neut % (Auto) 60.6 Lymph % (Auto) 23.9 [place] % (Auto) 12.9 H Eos % (Auto) 1.3 Baso % (Auto) 0.9 Lymph # (Auto) 2.8 [place] # (Auto) 1.5 H Eos # (Auto) 0.2 Baso # (Auto) 0.1 Abs Immat Gran (auto) 0.05 H Absolute Neuts (auto) 7.1 Absolute Nucleated RBC 0.000 Nucleated RBC % (auto) 0.0 Anion Gap 15 Estim Creat Clear Calc 30.9 Estimated GFR 32 Random Glucose 124 H Calcium 8.7 Magnesium 1.5 L Total Bilirubin 0.8 Direct Bilirubin 0.3 AST 21 ALT 29 Alkaline Phosphatase 69 Troponin I High Sens 3.9 B-Natriuretic Peptide 2865 H Total Protein 6.3 L Albumin 3.4 L Lipase 9 Influenza Type A (PCR) NEGATIVE Influenza Type B (PCR) NEGATIVE RSV RNA Qual (PCR) NEGATIVE SARS-CoV-2 RNA (RT-PCR) NEGATIVE <HAROON Car - Last Filed: 04/30/24 20:27> Imaging Radiologist's Impressions: Impressions Chest X-Ray 04/30/24 17:21 IMPRESSION: Improving CHF with some residual central vascular congestion and bilateral pleural effusions. Electronically signed by: Amilcar Kothari MD 04/30/2024 06:19 PM EDT RP <HAROON Car - Last Filed: 04/30/24 20:27> Assessment and Plan (1) Acute CHF: Status: Acute <HAROON Car - Last Filed: 04/30/24 20:27> (2) LALO (acute kidney injury): Status: Acute <HAROON Car - Last Filed: 04/30/24 20:27> 68-year-old female with a PMH significant for?cardiomyopathy, HFrEF, ICD in place, paroxysmal AFib on Eliquis, HTN, HLD, insulin-dependent type 2 diabetes, and hx of gout admitted for chf exacerbation #Acute chf exacerbation -BNP >2800. CXR shows improved vascular congestion and bilateral pleural effusions -Given addl 20mg IV lasix now. Continue 20mg IV lasix BID -Strict I&O -Cardiac diet -echo -hold entresto, spironolactone due to lalo -follow bmp, bnp #Acute kidney injury -likely cardiorenal in setting of above -IV diuresis as above -avoid neprhotoxins -follow renal function/lytes # insulin-dependent type 2 diabetes -dose adjusted basal insulin -POC glucose, diabetic diet -Humalog on sliding scale # paroxysmal atrial fibrillation -continue Eliquis for anticoagulation -metoprolol for rate control # hypertension -continue metoprolol. Hold spironolactone and Entresto in setting of LALO # hyperlipidemia -statin # history gout -allopurinol DVT prophylaxis-Eliquis Full code Due to patient's exacerbation of CHF with significant orthopnea and dyspnea on exertion with evidence of volume overload on imaging patient will require inpatient stay of at least 2 midnights for IV diuresis and close monitoring of intake and output as well as monitoring of renal function electrolyte levels given LALO <HAROON Car - Last Filed: 04/30/24 20:27> 68-year-old female with a PMH significant for?cardiomyopathy, HFrEF, ICD in place, paroxysmal AFib on Eliquis, HTN, HLD, insulin-dependent type 2 diabetes, and hx of gout admitted for chf exacerbation #Acute chf exacerbation -BNP >2800. CXR shows improved vascular congestion and bilateral pleural effusions -Given addl 20mg IV lasix now. Continue 20mg IV lasix BID -Strict I&O -Cardiac diet -echo -hold entresto, spironolactone due to lalo -follow bmp, bnp #Acute kidney injury -likely cardiorenal in setting of above -IV diuresis as above -avoid neprhotoxins -follow renal function/lytes # insulin-dependent type 2 diabetes -dose adjusted basal insulin -POC glucose, diabetic diet -Humalog on sliding scale # paroxysmal atrial fibrillation -continue Eliquis for anticoagulation -metoprolol for rate control # hypertension -continue metoprolol. Hold spironolactone and Entresto in setting of LALO # hyperlipidemia -statin # history gout -allopurinol DVT prophylaxis-Eliquis Full code Due to patient's exacerbation of CHF with significant orthopnea and dyspnea on exertion with evidence of volume overload on imaging patient will require inpatient stay of at least 2 midnights for IV diuresis and close monitoring of intake and output as well as monitoring of renal function electrolyte levels given LALO <Stephanie Gallardo MD - Last Filed: 04/30/24 20:43> Quality Stroke Does the patient have a stroke diagnosis?: No <HAROON Car - Last Filed: 04/30/24 20:27> VTE Prior VTE?: No <HAROON Car - Last Filed: 04/30/24 20:27> VTE Risk Level:: Medical - moderate - high <HAROON Car - Last Filed: 04/30/24 20:27> VTE Device Contraindication: Treatment Not Indicated <HAROON Car - Last Filed: 04/30/24 20:27> VTE Drug Contraindication: N/A - Med Ordered <HAROON Car - Last Filed: 04/30/24 20:27>
[2024-04-30 20:09] LABS: Troponin-I High Sensitivity 4.8 ng/L (<3.5-17.0)
[2024-04-30] MEDS: Magnesium Sulfate/D5W 1 GM/100 ML PIGGYBACK IV (21:19)
[2024-04-30 22:08] LABS: Glucose, Whole Blood 133 mg/dL (60-115)
[2024-04-30] MEDS: Insulin Glargine,Hum.rec.anlog 100 UNIT/ML 10 ML VIAL 6 UNIT SUBCUT (22:26)
[2024-04-30] MEDS: Apixaban 5 MG TABLET PO (22:26)
[2024-05-01] VITALS (7 sets, daily range): BP systolic 96–118; BP diastolic 57–74; PULSE 79–90; RESP 16–19; TEMP 36.2–36.9; O2SAT 92–97; BMI 26.8
[2024-05-01] MEDS: 0.9 % Sodium Chloride Flush 3 ML SYRINGE IVFLUSH ×4 (00:49→20:33)
[2024-05-01] MEDS: Melatonin 3 MG TABLET 6 MG PO (00:50)
--- NOTE | 2024-05-01 02:11 | PC.NURSE ---
Took over care from MILKA Anderson at 1:30am, pt is resting in bed no sign of distress at this time.
--- NOTE | 2024-05-01 05:21 | PC.NURSE ---
pt oob with assist to bedside commode.
[2024-05-01 05:48] LABS: Basophils Absolute Auto 0.1 X10*3/uL (0.0-0.2); Basophils Percent Auto 0.7 % (0-2); Eosinophils Absolute Auto 0.3 X10*3/uL (0.0-0.4); Eosinophils Percent Auto 2.1 % (0-4); Hematocrit 34.8 % (37.0-47.0); Hemoglobin 10.9 g/dl (12.0-16.0); Imm Gran Abs Auto 0.06 X10*3/uL (0.00-0.03); Imm Gran Pct Auto 0.5 % (0.0-0.4); Lymphocytes Absolute Auto 2.8 X10*3/uL (1.2-4.9); Lymphocytes Percent Auto 21.7 % (20-40); MANUAL DIFF FLAG SCAN; Mean Corpuscular HGB Conc 31.3 g/dl (31.0-35.0); Mean Corpuscular Hemoglobin 24.3 pg (27.0-33.0); Mean Corpuscular Volume 77.5 fL (80.0-98.0); Mean Platelet Volume 10.7 fL (9.4-12.3); Monocytes Absolute Auto 1.7 X10*3/uL (0.1-1.2); Neutrophils Absolute Auto 8.1 x10*3/uL (2.0-8.3); Platelet Count 329 X10*3/uL (160-400); Red Blood Count 4.49 X10*6/uL (4.20-5.50); Red Cell Distribution Width 14.5 % (11.0-16.0); SCAN SMEAR FLAG 1
[2024-05-01 06:07] LABS: Anion Gap 15 (12-20); Blood Urea Nitrogen 16 mg/dL (9-16); Calcium 8.8 mg/dL (8.4-10.2); Carbon Dioxide 29 mmol/L (22-29); Chloride 104 mmol/L (96-108); Creatinine Clr Calc Pharmacy 35.9; Estimated Glomerular Filt Rate 38; Glucose Random 82 mg/dL (60-115); Magnesium 1.9 mg/dL (1.6-2.6); Potassium 3.5 mmol/L (3.3-5.1); Sodium 144 mmol/L (135-145)
[2024-05-01 06:11] LABS: B Type Natriuretic Peptide 2931 pg/mL (<100)
[2024-05-01 06:51] LABS: SLIDE REVIEW VERIFIED
[2024-05-01 07:26] LABS: Glucose, Whole Blood 83 mg/dL (60-115)
[2024-05-01] MEDS: Apixaban 5 MG TABLET PO ×2 (08:05→20:27)
[2024-05-01] MEDS: Furosemide 20 MG/2 ML VIAL 40 MG IVPUSH ×2 (08:06→17:07)
--- NOTE | 2024-05-01 09:12 | HO.PM.IMPN ---
Subjective Subjective Date of Service: 05/01/24 Review of Systems Follow up CHF still sob especially with ambulation Physical Exam Vital Signs: Vital Signs: Last Vital Signs Temp 97.9 F 05/01/24 05:32 Pulse 88 05/01/24 05:32 Resp 18 05/01/24 05:32 BP 104/74 05/01/24 08:06 Pulse Ox 95 05/01/24 05:32 O2 Del Method Room Air 05/01/24 05:32 BMI result Body Mass Index 36.0 Appearing in no acute distress lung sounds exp rales heart regular rate rhythm, clear S1, S2 positive bowel sounds, abdomen is soft, nontender neuro patient is alert x3, no focal deficits Objective Data Active Medications Acetaminophen (Acetaminophen 325 Mg Tablet) 650 mg PO Q6H PRN PRN Reason: Pain, Mild (Pain Scale 1-3), fever or headache Apixaban (Apixaban 5 Mg Tablet) 5 mg PO BID [facility] Last Admin: 05/01/24 08:05 Dose: 5 mg Documented By: MARVEL Calcium Carbonate (Calcium Carbonate 750 Mg Tab.Chew) 750 mg PO Q4H PRN PRN Reason: Heartburn Furosemide (Furosemide 20 Mg/2 Ml Vial) 40 mg IVPUSH BID@0900,1800 [facility]; Protocol Last Admin: 05/01/24 08:06 Dose: 40 mg Documented By: MARVEL Glucose (Glucose Gel 15 Gm Gel..Gram.) 15 gm PO Q15M PRN; Protocol PRN Reason: per Hypoglycemia Standing Ord. Dextrose (D10) 250 mls @ 750 mls/hr IV Q15M PRN; Protocol PRN Reason: per Hypoglycemia Standing Ord. Insulin Glargine (Insulin Glargine,Hum.Rec.Anlog 100 Unit/Ml 10 Ml Vial) 6 unit SUBCUT BEDTIME [facility] Last Admin: 04/30/24 22:26 Dose: 6 unit Documented By: SILVANO Insulin Human Lispro (Insulin Lispro 100 Unit/Ml 3 Ml Vial) 0 unit SUBCUT QIDACHS [facility]; Protocol Last Admin: 05/01/24 07:20 Dose: Not Given Documented By: MARVEL Non-Admin Reason: No Insulin Coverage Magnesium Hydroxide (Milk Of Magnesia 30 Ml Oral.Susp) 30 ml PO DAILY PRN PRN Reason: Constipation Melatonin (Melatonin 3 Mg Tablet) 6 mg PO BEDTIME PRN PRN Reason: Insomnia Last Admin: 05/01/24 00:50 Dose: 6 mg Documented By: BRI Sodium Chloride (0.9 % Sodium Chloride Flush 3 Ml Syringe) 3 ml IVFLUSH QSHIFT [facility] Last Admin: 05/01/24 07:20 Dose: 3 ml Documented By: MARVEL Labs 05/01/24 04:49 05/01/24 04:49 Labs: Laboratory Results - last 24 hr 04/30/24 04/30/24 04/30/24 14:44 19:43 22:05 MCV 78.1 L MCH 24.8 L MCHC 31.7 RDW 14.4 Plt Count 315 MPV 10.2 Immature Gran % (Auto) 0.4 Neut % (Auto) 60.6 Lymph % (Auto) 23.9 [place] % (Auto) 12.9 H Eos % (Auto) 1.3 Baso % (Auto) 0.9 Lymph # (Auto) 2.8 [place] # (Auto) 1.5 H Eos # (Auto) 0.2 Baso # (Auto) 0.1 Abs Immat Gran (auto) 0.05 H Absolute Neuts (auto) 7.1 Absolute Nucleated RBC 0.000 Nucleated RBC % (auto) 0.0 Smear Tech's Comments Anion Gap 15 Estim Creat Clear Calc 30.9 Estimated GFR 32 POC Glucose 133 H Random Glucose 124 H Calcium 8.7 Magnesium 1.5 L Total Bilirubin 0.8 Direct Bilirubin 0.3 AST 21 ALT 29 Alkaline Phosphatase 69 Troponin I High Sens 3.9 4.8 B-Natriuretic Peptide 2865 H Total Protein 6.3 L Albumin 3.4 L Lipase 9 Influenza Type A (PCR) NEGATIVE Influenza Type B (PCR) NEGATIVE RSV RNA Qual (PCR) NEGATIVE SARS-CoV-2 RNA (RT-PCR) NEGATIVE 05/01/24 05/01/24 04:49 07:19 MCV 77.5 L MCH 24.3 L MCHC 31.3 RDW 14.5 Plt Count 329 MPV 10.7 Immature Gran % (Auto) 0.5 H Neut % (Auto) 62.0 Lymph % (Auto) 21.7 [place] % (Auto) 13.0 H Eos % (Auto) 2.1 Baso % (Auto) 0.7 Lymph # (Auto) 2.8 [place] # (Auto) 1.7 H Eos # (Auto) 0.3 Baso # (Auto) 0.1 Abs Immat Gran (auto) 0.06 H Absolute Neuts (auto) 8.1 Absolute Nucleated RBC 0.000 Nucleated RBC % (auto) 0.0 Smear Tech's Comments VERIFIED Anion Gap 15 Estim Creat Clear Calc 35.9 Estimated GFR 38 POC Glucose 83 Random Glucose 82 Calcium 8.8 Magnesium 1.9 Total Bilirubin Direct Bilirubin AST ALT Alkaline Phosphatase Troponin I High Sens B-Natriuretic Peptide 2931 H Total Protein Albumin Lipase Influenza Type A (PCR) Influenza Type B (PCR) RSV RNA Qual (PCR) SARS-CoV-2 RNA (RT-PCR) Assessment and Plan (1) Acute on chronic systolic congestive heart failure: Status: Acute Plan 68-year-old female with a PMH significant for?cardiomyopathy, HFrEF, ICD in place, paroxysmal AFib on Eliquis, HTN, HLD, insulin-dependent type 2 diabetes, and hx of gout admitted for chf exacerbation Acute chf exacerbation BNP >2931. [place] [facility] [place] 20% with [facility] Continue 40mg IV lasix BID Strict I&O echo hold entresto, spironolactone due to lalo follow bmp, bnp cardiology consultation Acute kidney injury. Resolved likely cardiorenal in setting of above IV diuresis as above avoid nephrotoxins follow BMP insulin-dependent type 2 diabetes ss, ada diet paroxysmal atrial fibrillation continue Eliquis for anticoagulation metoprolol for rate control hypertension continue metoprolol. Hold spironolactone and Entresto in setting of LALO hyperlipidemia statin history gout allopurinol DVT prophylaxis-Eliquis Attending Dr. Briscoe Full code Quality Stroke Does the patient have a stroke diagnosis?: No VTE Prior VTE?: No VTE Risk Level:: Medical - moderate - high VTE Device Contraindication: Treatment Not Indicated VTE Drug Contraindication: N/A - Med Ordered
--- NOTE | 2024-05-01 09:44 | PHA.MEDREC ---
Pharmacy Consult ? Medication Reconciliation Pharmacy has completed the medication reconciliation. Manager Medicare services used. Patient had medication leaflets in her wallet. Noted that they recently increased her water pill to BID and added spironolactone. When asked about atorvastatin not having any recent fills patient admits she has poor adherence and takes when she remembers. States she uses 8 units of Lantus despite no recent claims. Leaflets vs claim hsitory vs discharge packet all matched except for the lasix change and addition of spironolactone. Patient last took only morning meds yesterday 04/30
--- NOTE | 2024-05-01 10:07 | P.CONCA_ITS ---
History of Present Illness History of Present Illness Date of Service: 05/01/24 Chief complaint: chf exacerbation Narrative: This is a cardiology consultation regarding congestive heart failure. History of nonischemic cardiomyopathy. Last ejection fraction around 20%. Many comorbidities including diabetes, hypertension and dyslipidemia she also has an ICD for primary prevention. She has had a couple of recent hospitalizations for congestive heart failure. Once again returns back to the hospital stating that she cannot breathe. Even walking short distances makes her short of breath. Admission documentation also describes bilateral leg swelling but she denied that today. This also mention of recent diarrhea. Admitted for further evaluation. Review of Systems 2 Review of Systems: Yes all other systems are reviewed and are negative Constitutional: Constitutional: Reports as per HPI and Reports no additional constitutional complaints Eyes: Eyes: Reports as per HPI and Denies no additional eye complaints ENT: Denies system reviewed and no additional complaints, except as documented and Reports as per HPI Cardiovascular: Cardiovascular: Reports as per HPI, Reports no additional cardiovascular complaints, Denies acrocyanosis, Denies cool extremities, Denies chest pain, Denies leg edema, Denies lightheadedness, Denies palpitations and Reports dyspnea Respiratory: Respiratory: Reports as per HPI, Denies no additional respiratory complaints and Reports dyspnea Gastrointestinal: Gastrointestinal: Reports as per HPI and Denies no additional gastrointestinal complaints Genitourinary: Genitourinary: Reports as per HPI Musculoskeletal: Musculoskeletal: Reports no additional musculoskeletal complaints and Reports as per HPI Integumentary/Breasts: Skin/Breast: Reports system reviewed and no additional complaints, except as docu Neurologic: Reports system reviewed and no additional complaints, except as documented and Reports as per HPI Psychiatric: Psychiatric: Reports no additional psychiatric complaints and Reports as per HPI Endocrine: Endocrine: Reports no additional endocrine complaints, Reports as per HPI and Denies palpitations Hematologic/Lymphatic: Hematologic/Lymphatic: Reports no additional hematologic/lymphatic complaints and Reports as per HPI Allergic/Immunologic: Allergic/Immunologic: Reports no additional allergic/immunologic complaints and Reports as per HPI [facility] Past Medical History Medical History Pericardial cyst CHF (congestive heart failure) CHF (congestive heart failure) Hypoglycemia unawareness associated with type 2 diabetes mellitus Vitamin D deficiency Diabetic neuropathy associated with type 2 diabetes mellitus CKD (chronic kidney disease) stage 3, GFR 30-59 ml/min Hypertension 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 Non-toxic multinodular goiter Diabetes type 2, uncontrolled Family History Family History Father Alcoholism Diabetes Mother Arthritis Hypertension Surgical History Surgical History Hx of biopsy AICD (automatic cardioverter/defibrillator) present Hx of appendectomy Hx of hysterectomy Social History Social History Household Members: None Household Members Other:: Lives by self Housing: Apartment Do you presently have visiting nurse or other home services: Yes (Medicare, [employer] who is patient's daughter and Nurse) Unable to assess alcohol history related to: Unknown Alcohol intake: current Alcohol intake frequency: does not drink Patient Tobacco Use Status: Never used Tobacco Smoked in Last 30 Days: No e-Cigarette/Vaping Use: Never Used Second Hand Smoke Exposure: No Use of substances other than those prescribed or required for medical reasons: No Advance Directives: No Advance Directives Information Provided: No Do you have a plan to hurt others: No Plan Nutrition Risks: No Nutritional Risk service: No Meds Allergies Allergy/AdvReac Type Severity Reaction Status Date / Time egg [EGG] Allergy Intermediate RASH Verified 04/30/24 14:29 Fish Containing Products Allergy Intermediate RASH Verified 04/30/24 14:29 oxycodone [OXYCODONE] Allergy Intermediate RASH Verified 04/30/24 14:29 acetaminophen [From PERCOCET] Allergy Unknown RASH/ITCHIN Verified 04/30/24 14:29 G codeine [CODEINE] Allergy Unknown ITCHING Verified 04/30/24 14:29 hydrocodone [From VICODIN] Allergy Unknown UNKNOWN Verified 04/30/24 14:29 lisinopril [LISINOPRIL] Allergy Unknown UNKNOWN Verified 04/30/24 14:29 metoclopramide [From REGLAN] Allergy Unknown UNKNOWN Verified 04/30/24 14:29 naproxen [Naprosyn] Allergy Unknown Unknown Verified 04/30/24 14:29 tramadol Allergy Unknown Unknown Verified 04/30/24 14:29 Active Medications: Current Medications Acetaminophen (Acetaminophen 325 Mg Tablet) 650 mg PO Q6H PRN PRN Reason: Pain, Mild (Pain Scale 1-3), fever or headache Apixaban (Apixaban 5 Mg Tablet) 5 mg PO BID [facility] Last Admin: 05/01/24 08:05 Dose: 5 mg Calcium Carbonate (Calcium Carbonate 750 Mg Tab.Chew) 750 mg PO Q4H PRN PRN Reason: Heartburn Furosemide (Furosemide 20 Mg/2 Ml Vial) 40 mg IVPUSH BID@0900,1800 [facility]; Protocol Last Admin: 05/01/24 08:06 Dose: 40 mg Glucose (Glucose Gel 15 Gm Gel..Gram.) 15 gm PO Q15M PRN; Protocol PRN Reason: per Hypoglycemia Standing Ord. Dextrose (D10) 250 mls @ 750 mls/hr IV Q15M PRN; Protocol PRN Reason: per Hypoglycemia Standing Ord. Insulin Glargine (Insulin Glargine,Hum.Rec.Anlog 100 Unit/Ml 10 Ml Vial) 6 unit SUBCUT BEDTIME [facility] Last Admin: 04/30/24 22:26 Dose: 6 unit Insulin Human Lispro (Insulin Lispro 100 Unit/Ml 3 Ml Vial) 0 unit SUBCUT QIDACHS [facility]; Protocol Last Admin: 05/01/24 07:20 Dose: Not Given Magnesium Hydroxide (Milk Of Magnesia 30 Ml Oral.Susp) 30 ml PO DAILY PRN PRN Reason: Constipation Melatonin (Melatonin 3 Mg Tablet) 6 mg PO BEDTIME PRN PRN Reason: Insomnia Last Admin: 05/01/24 00:50 Dose: 6 mg Sodium Chloride (0.9 % Sodium Chloride Flush 3 Ml Syringe) [facility] Last Admin: 05/01/24 07:20 Dose: 3 ml Home Medications ?Medication ?Instructions ?Recorded ?Confirmed ?Last Taken ?Type aspirin 81 mg tablet,delayed 81 mg PO DAILY 06/04/20 05/01/24 04/30/24 History release cholecalciferol (vitamin D3) 50 50 mcg PO DAILY 06/04/20 05/01/24 04/30/24 History mcg (2,000 unit) capsule gabapentin 600 mg tablet 600 mg PO TID 06/04/20 05/01/24 04/30/24 History loratadine 10 mg tablet 10 mg PO DAILY PRN Allergy Symptoms 06/04/20 05/01/24 Unknown History methocarbamol 750 mg tablet 750 mg PO BID PRN Muscle Spasm 06/04/20 05/01/24 Unknown History omeprazole 10 mg capsule,delayed 10 mg PO DAILY@0630 06/04/20 05/01/24 04/30/24 History release zolpidem 5 mg tablet 5 mg PO BEDTIME PRN Insomnia 06/04/20 05/01/24 Unknown History apixaban 5 mg tablet (Eliquis) 5 mg PO BID 01/05/23 05/01/24 04/30/24 History diclofenac sodium 1 % topical gel 1 ea topical QID PRN Pain 01/05/23 05/01/24 Unknown History fluticasone propionate 50 50 mcg intranasal DAILY PRN 01/05/23 05/01/24 Unknown History mcg/actuation nasal allergies spray,suspension triamcinolone acetonide 0.5 % 1 appl topical BID PRN flares 01/05/23 05/01/24 Unknown History topical cream allopurinol 100 mg tablet 100 mg PO DAILY 01/26/24 05/01/24 04/30/24 History insulin glargine 100 unit/mL (3 8 unit subcut BEDTIME 01/31/24 05/01/24 04/14/24 History mL) subcutaneous pen (Lantus Solostar U-100 Insulin) multivitamin with folic acid 400 1 tab PO DAILY 01/31/24 05/01/24 04/30/24 History mcg tablet (Daily-Mallika (with folic acid)) silver sulfadiazine 1 % topical 1 appl topical DAILY PRN ingrown 01/31/24 05/01/24 Unknown History cream nail linagliptin 5 mg tablet (Tradjenta) 5 mg PO DAILY 04/15/24 05/01/24 04/30/24 History metoprolol succinate 100 mg 100 mg PO DAILY 04/15/24 05/01/24 04/30/24 History tablet,extended release 24 hr sacubitril 97 mg-valsartan 103 mg 1 tab PO BID 04/25/24 05/01/24 04/30/24 History tablet (Entresto) furosemide 20 mg tablet (Lasix) 20 mg PO BID 05/01/24 05/01/24 04/30/24 History spironolactone 25 mg tablet 25 mg PO DAILY 05/01/24 05/01/24 04/30/24 History Physical Exam 2 Vital Signs: Vital Signs: Last Vital Signs Temp 97.9 F 05/01/24 05:32 Pulse 88 05/01/24 05:32 Resp 18 05/01/24 05:32 BP 104/74 05/01/24 08:06 Pulse Ox 95 05/01/24 05:32 O2 Del Method Room Air 05/01/24 05:32 BMI result Body Mass Index 36.0 Const: General: comfortable and no acute distress O rientation/consciousness: patient oriented x3 HEENT: Other: Unremarkable Head: Yes normal to inspection Neck: Neck: Yes normal visual inspection Chest: Chest palpation & inspection: normal inspection of the chest Resp: Auscultation: clear to auscultation bilaterally Cardio: Other: JVD+ Palpation: normal PMI Heart sounds: S1 normal heart sound present, S2 normal heart sound present, no gallops, no murmurs and no rubs GI: Palpation (GI): Soft to palpation Back/Spine/Pelvis: Other: unremarkable Skin: General skin exam: no rashes or lesions noted Neuro: General: patient oriented x3 Extrem: General: Yes normal to inspection Psych: Mental Status: mental status grossly normal Objective Labs and Meds 05/01/24 04:49 05/01/24 04:49 Lab results: Laboratory Results - last 24 hr 04/30/24 04/30/24 04/30/24 14:44 19:43 22:05 WBC 11.7 H RBC 4.24 Hgb 10.5 L Hct 33.1 L MCV 78.1 L MCH 24.8 L MCHC 31.7 RDW 14.4 Plt Count 315 MPV 10.2 Immature Gran % (Auto) 0.4 Neut % (Auto) 60.6 Lymph % (Auto) 23.9 Stokes % (Auto) 12.9 H Eos % (Auto) 1.3 Baso % (Auto) 0.9 Lymph # (Auto) 2.8 Stokes # (Auto) 1.5 H Eos # (Auto) 0.2 Baso # (Auto) 0.1 Abs Immat Gran (auto) 0.05 H Absolute Neuts (auto) 7.1 Absolute Nucleated RBC 0.000 Nucleated RBC % (auto) 0.0 Smear Tech's Comments Sodium 141 Potassium 3.7 Chloride 105 Carbon Dioxide 25 Anion Gap 15 BUN 17 H Creatinine 1.60 H Estim Creat Clear Calc 30.9 Estimated GFR 32 POC Glucose 133 H Random Glucose 124 H Calcium 8.7 Magnesium 1.5 L Total Bilirubin 0.8 Direct Bilirubin 0.3 AST 21 ALT 29 Alkaline Phosphatase 69 Troponin I High Sens 3.9 4.8 B-Natriuretic Peptide 2865 H Total Protein 6.3 L Albumin 3.4 L Lipase 9 Influenza Type A (PCR) NEGATIVE Influenza Type B (PCR) NEGATIVE RSV RNA Qual (PCR) NEGATIVE SARS-CoV-2 RNA (RT-PCR) NEGATIVE 05/01/24 05/01/24 04:49 07:19 WBC 13.0 H RBC 4.49 Hgb 10.9 L Hct 34.8 L MCV 77.5 L MCH 24.3 L MCHC 31.3 RDW 14.5 Plt Count 329 MPV 10.7 Immature Gran % (Auto) 0.5 H Neut % (Auto) 62.0 Lymph % (Auto) 21.7 Stokes % (Auto) 13.0 H Eos % (Auto) 2.1 Baso % (Auto) 0.7 Lymph # (Auto) 2.8 Stokes # (Auto) 1.7 H Eos # (Auto) 0.3 Baso # (Auto) 0.1 Abs Immat Gran (auto) 0.06 H Absolute Neuts (auto) 8.1 Absolute Nucleated RBC 0.000 Nucleated RBC % (auto) 0.0 Smear Tech's Comments VERIFIED Sodium 144 Potassium 3.5 Chloride 104 Carbon Dioxide 29 Anion Gap 15 BUN 16 Creatinine 1.38 Estim Creat Clear Calc 35.9 Estimated GFR 38 POC Glucose 83 Random Glucose 82 Calcium 8.8 Magnesium 1.9 Total Bilirubin Direct Bilirubin AST ALT Alkaline Phosphatase Troponin I High Sens B-Natriuretic Peptide 2931 H Total Protein Albumin Lipase Influenza Type A (PCR) Influenza Type B (PCR) RSV RNA Qual (PCR) SARS-CoV-2 RNA (RT-PCR) ECG Interpretation: EKG with underlying sinus rhythm at 87/Min; PVCs; incomplete left bundle-branch block. Imaging Radiologist's impression: Impressions Chest X-Ray 04/30/24 17:21 IMPRESSION: Improving CHF with some residual central vascular congestion and bilateral pleural effusions. Electronically signed by: Amilcar Kothari MD 04/30/2024 06:19 PM EDT RP Assessment and Plan (1) Acute on chronic systolic congestive heart failure: Status: Acute Plan In the last echocardiogram from [facility], LVEF is 20%. Trabeculated apex. No significant valvular findings. Chest x-ray reported to have improving CHF with residual central vascular congestion/bilateral pleural effusions. Cardiac BNP 2931. Two weeks ago, 2134. January, it was 732. Overall, worsening congestive heart failure. she already seems to be on a reasonable guideline based therapy as listed- metoprolol ER, Entresto, spironolactone, Lasix 20 mg b.i.d.. Unclear if also taking Farxiga or Jardiance. Clinically, however does not seem to be too volume overloaded. Can keep her on IV diuretics. Repeat echocardiogram. Due to recurring admission inspite of GDMT, consider right heart catheterization guide inotrope use/diuresis. Will follow with you tomorrow. Discussed with patient using mixer wet pour. Procedures Date of Service Date of Service: 05/01/24
[2024-05-01 11:23] LABS: Glucose, Whole Blood 242 mg/dL (60-115)
[2024-05-01] MEDS: Insulin Lispro 100 UNIT/ML 3 ML VIAL SUBCUT (11:38)
[2024-05-01] MEDS: Gabapentin 600 MG TABLET PO ×2 (14:37→20:27)
[2024-05-01] MEDS: Omeprazole 20 MG CAPSULE.DR PO (14:37)
[2024-05-01 16:09] LABS: Glucose, Whole Blood 65 mg/dL (60-115)
[2024-05-01] MEDS: Insulin Glargine,Hum.rec.anlog 100 UNIT/ML 10 ML VIAL 8 UNIT SUBCUT (20:28)
[2024-05-01] MEDS: Zolpidem Tartrate 5 MG TABLET PO (20:31)
[2024-05-01 20:32] LABS: Glucose, Whole Blood 132 mg/dL (60-115)
[2024-05-01 20:32] LABS: Glucose, Whole Blood 89 mg/dL (60-115)
[2024-05-02] VITALS (7 sets, daily range): BP systolic 92–112; BP diastolic 59–72; PULSE 84–90; RESP 14–18; TEMP 36.3–37.2; O2SAT 96–97
[2024-05-02] MEDS: Omeprazole 20 MG CAPSULE.DR PO (05:44)
[2024-05-02 06:58] LABS: B Type Natriuretic Peptide 1154 pg/mL (<100)
--- NOTE | 2024-05-02 07:00 | CA_ITS ---
Transthoracic Echocardiogram Patient (Last, First, Middle): Lida Thompson, Gender: Female Date of : 1955 Age: 69 Procedure Date: 05/02/2024 Procedure Type: Transthoracic Echocardiogram Location: [facility] [place] Height: 149.86 cm Weight: 59.88 kg BSA: 1.55 m2 Heart Rate: bpm BP: 106 / 60 mmHg Referring MD: Destinee PAITÑO Symptoms: CHF exacerbation Study Quality: Fair with Contrast ECG Rhythm: Atrial Fibrillation Conclusions: - Mildly increased left ventricular cavity size. There is normal left ventricular wall thickness. The left ventricular systolic function is severely decreased. The visually estimated ejection fraction is between 15-20%. - Normal right ventricular cavity size. There is mildly decreased right ventricular systolic function. There is an ICD wire seen in the right ventricle. - The left atrium is severely dilated. - There is mild tricuspid valve regurgitation. Findings Left Ventricle Mildly increased left ventricular cavity size. There is normal left ventricular wall thickness. The left ventricular systolic function is severely decreased. The visually estimated ejection fraction is between 15 20%. There is severe global hypokinesis. Abnormal diastolic function is noted. Elevated filling pressures. Right Ventricle Normal right ventricular cavity size. There is mildly decreased right ventricular systolic function. There is an ICD wire seen in the right ventricle. Atria The left atrium is severely dilated. The right atrium is normal in size. Aortic Valve There is a normal trileaflet aortic valve. There is no aortic valve stenosis. There is no aortic valve regurgitation. Mitral Valve The mitral valve appears normal. There is moderate mitral valve regurgitation. There is no mitral valve stenosis. Pulmonic Valve The pulmonic valve is normal. There is trace pulmonic valve regurgitation. Tricuspid Valve Normal tricuspid valve structure. There is mild tricuspid valve regurgitation. Normal right atrial pressure. There is no evidence of pulmonary hypertension. Great Vessels All visible segments of the aorta are normal in size. Venous The inferior vena cava is normal in size and collapses greater than 50% with inspiration. Pericardium/Pleural There is no evidence of pericardial effusion. Prior Study Comparison Changes noted compared to prior study. Severe LV dysfunction. Measurements 2D Linear Measurements IVSd: 0.80 0.6-0.9/0.6-1.0 cm LVIDd: 5.58 3.9-5.3/4.2-5.9 cm LVIDd Index: 3.60 2.4-3.2/2.2-3.1 cm/m2 LVIDs: 5.12 2.0-3.6 cm LVPWd: 0.83 0.7-1.1 cm Ao Root: 2.50 2.1-3.5 cm LA Diam: 3.70 2.7-3.8/3.0-4.0 cm LAIDs Index: 2.39 1.5-2.3 cm/m2 LV Mass: 208.62 67-162/88-224 g LV Mass Index: 134.59 43-95/49-115 g/m2 LVOT Diam: 2.30 3.0+(-)1.3 cm Mitral Valve MV Pk E: 1.01 MV Decel Time: 234.00 E'Lateral: 7.94 E'Medial: 5.33 E/E' Med: 18.90 E/E' Lat: 12.70 PHT: 69.00 MVA PHT: 3.19 Decel [place]: 4.30 Aortic Valve AoV Pk James: 1.02 AoV Mn James: 0.67 AoV VTI: 0.17 AoV Pk Grad: 4.00 Aov Mn Grad: 2.00 KELLY Cont.VTI: 2.47 LVOT LVOT Pk James: 0.65 LVOT Mn James: 0.44 LVOT VTI: 0.10 LVOT Pk Grad: 2.00 LVOT Mn Grad: 1.00 LVOT Diam: 2.30 LVOT Area: 4.15 Diastolic Function MV Pk E: 1.01 E'Medial: 5.33 E/E' Med: 18.90 E' Laterial: 7.94 E/E' Lat: 12.70 Right Ventricle TAPSE (mm): 20.00 Tricuspid Valve TR Pk James: 2.76 TR Pk Grad: 30.00 RA Press: 3.00 RVSP: 33.00 Great Vessels Aorta Ao Root-2D: 2.50 2.0-3.7 cm Ao Asc: 2.80 2.1-3.4 cm Pulmonary Valve PV Pk James: 0.84 Peak PV Grad: 3.00 Updated in Other Vendor System with Status of Final John Thomas MD electronically signed on 05/03/2024 1:39:15 PM with status of Final
[2024-05-02 07:04] LABS: Glucose, Whole Blood 99 mg/dL (60-115)
[2024-05-02 07:07] LABS: Anion Gap 12 (12-20); Blood Urea Nitrogen 13 mg/dL (9-16); Calcium 8.3 mg/dL (8.4-10.2); Carbon Dioxide 28 mmol/L (22-29); Chloride 105 mmol/L (96-108); Estimated Glomerular Filt Rate 46; Glucose Random 89 mg/dL (60-115); Potassium 3.2 mmol/L (3.3-5.1); Sodium 142 mmol/L (135-145)
--- NOTE | 2024-05-02 08:44 | MHC.CM.PN ---
CM met with Patient at bedside with the assist of a [facility] Coding Advisor and addressed IMM with Patient (original was given to her and a copy has been placed on the chart). Patient lives alone in an apartment, uses a walker to assist with mobility, and receives 13 hours/week of CCA/REFLEXOLOGIST services. Home/resume said services is the goal and CM has initiated and will follow for dc planning. PCP is Dr. Cordelia Moraes and Patient's Brother or Boyfriend will transport to home.
[2024-05-02] MEDS: Potassium Chloride ER 20 MEQ TAB.ER.PRT 40 MEQ PO (08:48)
[2024-05-02] MEDS: Spironolactone 25 MG TABLET PO (08:48)
[2024-05-02] MEDS: Multivitamin TABLET 1 TAB PO (08:49)
[2024-05-02] MEDS: Furosemide 20 MG/2 ML VIAL 40 MG IVPUSH (08:49)
[2024-05-02] MEDS: Aspirin Enteric Coated 81 MG TABLET.DR PO (08:49)
[2024-05-02] MEDS: Atorvastatin Calcium 40 MG TABLET PO (08:49)
[2024-05-02] MEDS: Acetaminophen 325 MG TABLET 650 MG PO (08:49)
[2024-05-02] MEDS: Gabapentin 600 MG TABLET PO ×3 (08:49→21:40)
[2024-05-02] MEDS: allopurinoL 100 MG TABLET PO (08:49)
[2024-05-02] MEDS: Cholecalciferol (Vitamin D3) 25 MCG TABLET 50 MCG PO (08:49)
[2024-05-02] MEDS: Apixaban 5 MG TABLET PO ×2 (08:49→21:40)
[2024-05-02] MEDS: 0.9 % Sodium Chloride Flush 3 ML SYRINGE IVFLUSH ×2 (08:50→16:17)
--- NOTE | 2024-05-02 09:25 | P.PNIM_ITS ---
Subjective Subjective Date of Service: 05/02/24 Review of Systems Follow up CHF still sob especially with ambulation Physical Exam 2 Vital Signs: Vital Signs: Last Vital Signs Temp 99.0 F 05/02/24 07:13 Pulse 88 05/02/24 07:13 Resp 18 05/02/24 07:13 BP 112/62 05/02/24 08:49 Pulse Ox 96 05/02/24 07:13 O2 Del Method Room Air 05/02/24 07:13 BMI result Body Mass Index 26.8 Appearing in no acute distress lung sounds rales heart regular rate rhythm, clear S1, S2 positive bowel sounds, abdomen is soft, nontender neuro patient is alert x3, no focal deficits Objective Data Active Medications Acetaminophen (Acetaminophen 325 Mg Tablet) 650 mg PO Q6H PRN PRN Reason: Pain, Mild (Pain Scale 1-3), fever or headache Last Admin: 05/02/24 08:49 Dose: 650 mg Documented By: HEIDI Allopurinol (Allopurinol 100 Mg Tablet) 100 mg PO DAILY [facility] Last Admin: 05/02/24 08:49 Dose: 100 mg Documented By: HEIDI Apixaban (Apixaban 5 Mg Tablet) 5 mg PO BID [facility] Last Admin: 05/02/24 08:49 Dose: 5 mg Documented By: HEIDI Aspirin (Aspirin Enteric Coated 81 Mg Tablet.) 81 mg PO DAILY [facility] Last Admin: 05/02/24 08:49 Dose: 81 mg Documented By: HEIDI Atorvastatin Calcium (Atorvastatin Calcium 40 Mg Tablet) 40 mg PO DAILY [facility] Last Admin: 05/02/24 08:49 Dose: 40 mg Documented By: HEIDI Calcium Carbonate (Calcium Carbonate 750 Mg Tab.Chew) 750 mg PO Q4H PRN PRN Reason: Heartburn Fluticasone Propionate (Fluticasone Propionate Nasal 16 Gm Backus) 1 spray NOSTRIL-B DAILY PRN PRN Reason: allergies Furosemide (Furosemide 20 Mg/2 Ml Vial) 40 mg IVPUSH BID@0900,1800 [facility]; Protocol Last Admin: 05/02/24 08:49 Dose: 40 mg Documented By: HEIDI Gabapentin (Gabapentin 600 Mg Tablet) 600 mg PO TID [facility] Last Admin: 05/02/24 08:49 Dose: 600 mg Documented By: HEIDI Glucose (Glucose Gel 15 Gm Gel..Gram.) 15 gm PO Q15M PRN; Protocol PRN Reason: per Hypoglycemia Standing Ord. Hydrocortisone (Hydrocortisone 1 % Cream 28.35 Gm Tube) 1 appl TOPICAL BID PRN; Protocol PRN Reason: Itching Dextrose (D10) 250 mls @ 750 mls/hr IV Q15M PRN; Protocol PRN Reason: per Hypoglycemia Standing Ord. Insulin Glargine (Insulin Glargine,Hum.Rec.Anlog 100 Unit/Ml 10 Ml Vial) 8 unit SUBCUT BEDTIME [facility] Last Admin: 05/01/24 20:28 Dose: 8 unit Documented By: MARTHA Insulin Human Lispro (Insulin Lispro 100 Unit/Ml 3 Ml Vial) 0 unit SUBCUT QIDACHS [facility]; Protocol Last Admin: 05/02/24 08:50 Dose: Not Given Documented By: HEIDI Non-Admin Reason: No Insulin Coverage Comments: poc 99 Loratadine (Loratadine 10 Mg Tablet) 10 mg PO DAILY PRN PRN Reason: Allergy Symptoms Magnesium Hydroxide (Milk Of Magnesia 30 Ml Oral.Susp) 30 ml PO DAILY PRN PRN Reason: Constipation Melatonin (Melatonin 3 Mg Tablet) 6 mg PO BEDTIME PRN PRN Reason: Insomnia Last Admin: 05/01/24 00:50 Dose: 6 mg Documented By: BRI Methocarbamol (Methocarbamol 750 Mg Tablet) 750 mg PO BID PRN PRN Reason: Muscle Spasm Multivitamins/Vitamin C (Multivitamin Tablet) 1 tab PO DAILY [facility] Last Admin: 05/02/24 08:49 Dose: 1 tab Documented By: HEIDI Omeprazole (Omeprazole 20 Mg Capsule.) 20 mg PO DAILY@0630 [facility] Last Admin: 05/02/24 05:44 Dose: 20 mg Documented By: MARTHA Silver Sulfadiazine (Silver Sulfadiazine 1 % Cream 20 Gm Tube) 1 appl TOPICAL DAILY PRN PRN Reason: ingrown nail Sodium Chloride (0.9 % Sodium Chloride Flush 3 Ml Syringe) 3 ml IVFLUSH QSHIFT [facility] Last Admin: 05/02/24 08:50 Dose: 3 ml Documented By: HEIDI Spironolactone (Spironolactone 25 Mg Tablet) 25 mg PO DAILY [facility]; Protocol Last Admin: 05/02/24 08:48 Dose: 25 mg Documented By: HEIDI Vitamin D (Cholecalciferol (Vitamin D3) 25 Mcg Tablet) 50 mcg PO DAILY [facility] Last Admin: 05/02/24 08:49 Dose: 50 mcg Documented By: HEIDI Zolpidem Tartrate (Zolpidem Tartrate 5 Mg Tablet) 5 mg PO BEDTIME PRN PRN Reason: Insomnia Last Admin: 05/01/24 20:31 Dose: 5 mg Documented By: MARTHA Comments: pt requested for sleep Labs 05/01/24 04:49 05/02/24 06:21 Labs: Laboratory Results - last 24 hr 05/01/24 05/01/24 05/01/24 11:14 16:01 16:24 Anion Gap Estim Creat Clear Calc Estimated GFR POC Glucose 242 H 65 89 Random Glucose Calcium B-Natriuretic Peptide 05/01/24 05/02/24 05/02/24 20:22 06:21 06:58 Anion Gap 12 Estim Creat Clear Calc 36.0 Estimated GFR 46 POC Glucose 132 H 99 Random Glucose 89 Calcium 8.3 L B-Natriuretic Peptide 1154 H Assessment and Plan (1) Acute on chronic systolic congestive heart failure: Status: Acute Plan 68-year-old female with a PMH significant for?cardiomyopathy, HFrEF, ICD in place, paroxysmal AFib on Eliquis, HTN, HLD, insulin-dependent type 2 diabetes, and hx of gout admitted for chf exacerbation Acute chf exacerbation BNP >2931. [place] [facility] [place] 20% with [facility] Continue 40mg IV lasix BID Strict I&O echo pending hold entresto, spironolactone due to v[facility] cardiology consultation>continue IV diuretics, follow echo, ? right heart cath Acute kidney injury. Resolved likely cardiorenal in setting of above IV diuresis as above avoid nephrotoxins follow BMP insulin-dependent type 2 diabetes ss, ada diet paroxysmal atrial fibrillation continue Eliquis for anticoagulation metoprolol for rate control hypertension continue metoprolol. spironolactone hold Entresto hyperlipidemia statin history gout allopurinol DVT prophylaxis-Eliquis Attending Dr. Briscoe Full code Quality Stroke Does the patient have a stroke diagnosis?: No VTE Prior VTE?: No VTE Risk Level:: Medical - moderate - high VTE Device Contraindication: Treatment Not Indicated VTE Drug Contraindication: N/A - Med Ordered
[2024-05-02 10:57] LABS: Glucose, Whole Blood 203 mg/dL (60-115)
[2024-05-02] MEDS: Insulin Lispro 100 UNIT/ML 3 ML VIAL SUBCUT (11:53)
[2024-05-02] MEDS: Hydrocortisone 1 % Cream 28.35 GM TUBE 1 APPL TOPICAL (11:54)
--- NOTE | 2024-05-02 12:54 | PM.PNCARD ---
Subjective Subjective Date of Service: 05/02/24 Interval history: Seen and examined at bedside. Clinically improving. Telemetry is showing PVCs. Physical Exam Vital Signs: Last Vital Signs Temp 99.0 F 05/02/24 07:13 Pulse 88 05/02/24 07:13 Resp 18 05/02/24 07:13 BP 112/62 05/02/24 08:49 Pulse Ox 96 05/02/24 07:13 O2 Del Method Room Air 05/02/24 07:13 BMI result Body Mass Index 26.8 GENERAL APPEARANCE: in no acute distress, pleasant. NECK: no carotid bruit, no jugular venous distention. SKIN: no suspicious lesions, warm and dry. HEART: no murmurs, regular rate and rhythm. LUNGS: clear to auscultation bilaterally. ABDOMEN: soft, nontender. EXTREMITIES: no edema. PERIPHERAL PULSES: equal. NEUROLOGIC: No gross deficits, AAO X 3 Objective Labs and Meds 05/01/24 04:49 05/02/24 06:21 Lab results: Laboratory Results - last 24 hr 05/01/24 05/01/24 05/01/24 16:01 16:24 20:22 Sodium Potassium Chloride Carbon Dioxide Anion Gap BUN Creatinine Estim Creat Clear Calc Estimated GFR POC Glucose 65 89 132 H Random Glucose Calcium B-Natriuretic Peptide 05/02/24 05/02/24 05/02/24 06:21 06:58 10:53 Sodium 142 Potassium 3.2 L Chloride 105 Carbon Dioxide 28 Anion Gap 12 BUN 13 Creatinine 1.18 Estim Creat Clear Calc 36.0 Estimated GFR 46 POC Glucose 99 203 H Random Glucose 89 Calcium 8.3 L B-Natriuretic Peptide 1154 H Progress Note: A&P Assessment and plan (1) Acute on chronic systolic congestive heart failure: Status: Acute Plan 69-year-old female with nonischemic cardiomyopathy with EF 20% based on echocardiography done at [facility] [place]. She follows with Dr. Kowalski. She is on good medical therapy with spironolactone, Entresto, metoprolol succinate. She is on Lasix 20 mg p.o. b.i.d. at home. Admitted again with congestive heart failure. BNP was significantly elevated. She has been diuresed and overall is improving. She is hypokalemic and has PVCs on telemetry. Potassium should be repleted and magnesium should be checked and repleted 2. Increase the spironolactone to 25 mg twice a day. Potentially can be transitioned to p.o. Lasix 40 mg b.i.d.. She is seeing Dr. Kowalski on May 12. As she improves I think she can be discharged home and can follow up with her. Thank you for allowing me to participate in the care of your patient. Please feel free to contact me if you have any questions. Time Spent With Patient Time: Total time managing care of this patient today ____ minutes. Progress Note: Quality Stroke Does the patient have a stroke diagnosis?: No Procedures Date of Service Date of Service: 05/02/24
[2024-05-02 16:03] LABS: Glucose, Whole Blood 79 mg/dL (60-115)
[2024-05-02 20:20] LABS: Glucose, Whole Blood 129 mg/dL (60-115)
[2024-05-02] MEDS: Zolpidem Tartrate 5 MG TABLET PO (21:40)
[2024-05-02] MEDS: Insulin Glargine,Hum.rec.anlog 100 UNIT/ML 10 ML VIAL 8 UNIT SUBCUT (21:40)
[2024-05-03] MEDS: 0.9 % Sodium Chloride Flush 3 ML SYRINGE IVFLUSH ×4 (00:13→22:04)
[2024-05-03 03:20] VITALS: BP 116/58; PULSE 95; RESP 18; TEMP 36.8; O2SAT 97
[2024-05-03] MEDS: Omeprazole 20 MG CAPSULE.DR PO (05:39)
[2024-05-03 06:35] LABS: Anion Gap 14 (12-20); Blood Urea Nitrogen 12 mg/dL (9-16); Calcium 8.5 mg/dL (8.4-10.2); Carbon Dioxide 25 mmol/L (22-29); Chloride 107 mmol/L (96-108); Creatinine Clr Calc Pharmacy 35.4; Estimated Glomerular Filt Rate 45; Glucose Random 94 mg/dL (60-115); Potassium 3.8 mmol/L (3.3-5.1); Sodium 142 mmol/L (135-145)
[2024-05-03 07:02] LABS: Glucose, Whole Blood 104 mg/dL (60-115)
[2024-05-03 07:09] VITALS: BP 103/56; PULSE 98; RESP 18; TEMP 36.8; O2SAT 95
[2024-05-03 07:47] VITALS: BMI 25.7
[2024-05-03] MEDS: Spironolactone 25 MG TABLET PO ×2 (09:06→22:03)
[2024-05-03] MEDS: Furosemide 20 MG/2 ML VIAL 40 MG IVPUSH (09:06)
[2024-05-03] MEDS: Apixaban 5 MG TABLET PO ×2 (09:06→22:03)
[2024-05-03] MEDS: Atorvastatin Calcium 40 MG TABLET PO (09:06)
[2024-05-03] MEDS: Aspirin Enteric Coated 81 MG TABLET.DR PO (09:06)
[2024-05-03] MEDS: Gabapentin 600 MG TABLET PO ×3 (09:06→22:02)
[2024-05-03] MEDS: Multivitamin TABLET 1 TAB PO (09:07)
[2024-05-03] MEDS: Cholecalciferol (Vitamin D3) 25 MCG TABLET 50 MCG PO (09:07)
[2024-05-03] MEDS: allopurinoL 100 MG TABLET PO (09:07)
[2024-05-03 10:48] LABS: Glucose, Whole Blood 197 mg/dL (60-115)
--- NOTE | 2024-05-03 13:01 | P.PNIM_ITS ---
Subjective Subjective Date of Service: 05/03/24 Review of Systems Follow up CHF still sob especially with ambulation Physical Exam 2 Vital Signs: Vital Signs: Last Vital Signs Temp 98.3 F 05/03/24 07:09 Pulse 98 05/03/24 07:09 Resp 18 05/03/24 07:09 BP 103/56 L 05/03/24 07:09 Pulse Ox 95 05/03/24 07:09 O2 Del Method Room Air 05/03/24 07:09 BMI result Body Mass Index 25.7 Appearing in no acute distress lung sounds are clear to auscultation heart regular rate rhythm, clear S1, S2 positive bowel sounds, abdomen is soft, nontender neuro patient is alert x3, no focal deficits Objective Data Active Medications Acetaminophen (Acetaminophen 325 Mg Tablet) 650 mg PO Q6H PRN PRN Reason: Pain, Mild (Pain Scale 1-3), fever or headache Last Admin: 05/02/24 08:49 Dose: 650 mg Documented By: HEIDI Allopurinol (Allopurinol 100 Mg Tablet) 100 mg PO DAILY [facility] Last Admin: 05/03/24 09:07 Dose: 100 mg Documented By: VANESSA Apixaban (Apixaban 5 Mg Tablet) 5 mg PO BID [facility] Last Admin: 05/03/24 09:06 Dose: 5 mg Documented By: VANESSA Aspirin (Aspirin Enteric Coated 81 Mg Tablet.Dr) 81 mg PO DAILY [facility] Last Admin: 05/03/24 09:06 Dose: 81 mg Documented By: VANESSA Atorvastatin Calcium (Atorvastatin Calcium 40 Mg Tablet) 40 mg PO DAILY [facility] Last Admin: 05/03/24 09:06 Dose: 40 mg Documented By: VANESSA Calcium Carbonate (Calcium Carbonate 750 Mg Tab.Chew) 750 mg PO Q4H PRN PRN Reason: Heartburn Fluticasone Propionate (Fluticasone Propionate Nasal 16 Gm [place]) 1 spray NOSTRIL-B DAILY PRN PRN Reason: allergies Furosemide (Furosemide 20 Mg/2 Ml Vial) 40 mg IVPUSH BID@0900,1800 [facility]; Protocol Last Admin: 05/03/24 09:06 Dose: 40 mg Documented By: VANESSA Gabapentin (Gabapentin 600 Mg Tablet) 600 mg PO TID [facility] Last Admin: 05/03/24 09:06 Dose: 600 mg Documented By: VANESSA Glucose (Glucose Gel 15 Gm Gel..Gram.) 15 gm PO Q15M PRN; Protocol PRN Reason: per Hypoglycemia Standing Ord. Hydrocortisone (Hydrocortisone 1 % Cream 28.35 Gm Tube) 1 appl TOPICAL BID PRN; Protocol PRN Reason: Itching Last Admin: 05/02/24 11:54 Dose: 1 appl Documented By: HEIDI Dextrose (D10) 250 mls @ 750 mls/hr IV Q15M PRN; Protocol PRN Reason: per Hypoglycemia Standing Ord. Insulin Glargine (Insulin Glargine,Hum.Rec.Anlog 100 Unit/Ml 10 Ml Vial) 8 unit SUBCUT BEDTIME [facility] Last Admin: 05/02/24 21:40 Dose: 8 unit Documented By: GUSTAVO Insulin Human Lispro (Insulin Lispro 100 Unit/Ml 3 Ml Vial) 0 unit SUBCUT QIDACHS [facility]; Protocol Last Admin: 05/03/24 09:16 Dose: Not Given Documented By: VANESSA Non-Admin Reason: No Insulin Coverage Loratadine (Loratadine 10 Mg Tablet) 10 mg PO DAILY PRN PRN Reason: Allergy Symptoms Magnesium Hydroxide (Milk Of Magnesia 30 Ml Oral.Susp) 30 ml PO DAILY PRN PRN Reason: Constipation Melatonin (Melatonin 3 Mg Tablet) 6 mg PO BEDTIME PRN PRN Reason: Insomnia Last Admin: 05/01/24 00:50 Dose: 6 mg Documented By: BRI Methocarbamol (Methocarbamol 750 Mg Tablet) 750 mg PO BID PRN PRN Reason: Muscle Spasm Multivitamins/Vitamin C (Multivitamin Tablet) 1 tab PO DAILY [facility] Last Admin: 05/03/24 09:07 Dose: 1 tab Documented By: VANESSA Omeprazole (Omeprazole 20 Mg Capsule.Dr) 20 mg PO DAILY@0630 [facility] Last Admin: 05/03/24 05:39 Dose: 20 mg Documented By: FERNANDA Silver Sulfadiazine (Silver Sulfadiazine 1 % Cream 20 Gm Tube) 1 appl TOPICAL DAILY PRN PRN Reason: ingrown nail Sodium Chloride (0.9 % Sodium Chloride Flush 3 Ml Syringe) 3 ml IVFLUSH QSHIFT [facility] Last Admin: 05/03/24 09:05 Dose: 3 ml Documented By: VANESSA Spironolactone (Spironolactone 25 Mg Tablet) 25 mg PO BID [facility]; Protocol Last Admin: 05/03/24 09:06 Dose: 25 mg Documented By: VANESSA Vitamin D (Cholecalciferol (Vitamin D3) 25 Mcg Tablet) 50 mcg PO DAILY [facility] Last Admin: 05/03/24 09:07 Dose: 50 mcg Documented By: VANESSA Zolpidem Tartrate (Zolpidem Tartrate 5 Mg Tablet) 5 mg PO BEDTIME PRN PRN Reason: Insomnia Last Admin: 05/02/24 21:40 Dose: 5 mg Documented By: GUSTAVO Labs 05/01/24 04:49 05/03/24 05:56 Labs: Laboratory Results - last 24 hr 05/02/24 05/02/24 05/03/24 15:56 20:14 05:56 Anion Gap 14 Estim Creat Clear Calc 35.4 Estimated GFR 45 POC Glucose 79 129 H Random Glucose 94 Calcium 8.5 05/03/24 05/03/24 06:55 10:44 Anion Gap Estim Creat Clear Calc Estimated GFR POC Glucose 104 197 H Random Glucose Calcium Assessment and Plan (1) Acute on chronic systolic congestive heart failure: Status: Acute Plan 68-year-old female with a PMH significant for?cardiomyopathy, HFrEF, ICD in place, paroxysmal AFib on Eliquis, HTN, HLD, insulin-dependent type 2 diabetes, and hx of gout admitted for chf exacerbation Acute chf exacerbation BNP >2931. last echo at [facility] 11/2023 EF 20% with [facility] Continue 40mg IV lasix BID Strict I&O echo pending hold entresto, spironolactone due to v[facility] cardiology consultation>continue IV diuretics, ambulate, if sob and tachy may consider tx to [facility] Acute kidney injury. Resolved likely cardiorenal in setting of above IV diuresis as above avoid nephrotoxins follow BMP insulin-dependent type 2 diabetes ss, ada diet paroxysmal atrial fibrillation continue Eliquis for anticoagulation metoprolol for rate control hypertension continue metoprolol. spironolactone hold Entresto hyperlipidemia statin history gout allopurinol DVT prophylaxis-Bettye Attending Dr. Briscoe Full code Quality Stroke Does the patient have a stroke diagnosis?: No VTE Prior VTE?: No VTE Risk Level:: Medical - moderate - high VTE Device Contraindication: Treatment Not Indicated VTE Drug Contraindication: N/A - Med Ordered
--- NOTE | 2024-05-03 13:11 | P.PNCA_ITS ---
Subjective Subjective Date of Service: 05/03/24 Interval history: Seen examined at bedside. Feeling better. Blood pressure has been low and she is on IV diuretics. We will transition her to oral Lasix 40 mg p.o. b.i.d.. She is on spironolactone 25 mg twice a day. She is currently not on beta- iwona or Entresto. Physical Exam Vital Signs: Last Vital Signs Temp 98.3 F 05/03/24 07:09 Pulse 98 05/03/24 07:09 Resp 18 05/03/24 07:09 BP 103/56 L 05/03/24 07:09 Pulse Ox 95 05/03/24 07:09 O2 Del Method Room Air 05/03/24 07:09 BMI result Body Mass Index 25.7 GENERAL APPEARANCE: in no acute distress, pleasant. NECK: no carotid bruit, no jugular venous distention. SKIN: no suspicious lesions, warm and dry. HEART: no murmurs, regular rate and rhythm. Tachycardic. LUNGS: clear to auscultation bilaterally. ABDOMEN: soft, nontender. EXTREMITIES: no edema. PERIPHERAL PULSES: equal. NEUROLOGIC: No gross deficits, AAO X 3 Objective Labs and Meds 05/01/24 04:49 05/03/24 05:56 Lab results: Laboratory Results - last 24 hr 05/02/24 05/02/24 05/03/24 15:56 20:14 05:56 Sodium 142 Potassium 3.8 Chloride 107 Carbon Dioxide 25 Anion Gap 14 BUN 12 Creatinine 1.20 Estim Creat Clear Calc 35.4 Estimated GFR 45 POC Glucose 79 129 H Random Glucose 94 Calcium 8.5 05/03/24 05/03/24 06:55 10:44 Sodium Potassium Chloride Carbon Dioxide Anion Gap BUN Creatinine Estim Creat Clear Calc Estimated GFR POC Glucose 104 197 H Random Glucose Calcium Progress Note: A&P Assessment and plan (1) Acute on chronic systolic congestive heart failure: Status: Acute Plan Pleasant 69-year-old female with nonischemic cardiomyopathy with severe LV dysfunction. Echocardiography done in our hospital is showing EF of 15 20% with mild RV dysfunction. She has mild dilated left ventricle. Bmza-se-vwkwnehm mitral valve regurgitation. Filling pressures were elevated. Clinically she is improving with diuresis. Her blood pressure is too low to tolerate most of her medications currently. She is on spironolactone and Lasix right now. She is supposed to be on high dose Entresto as well as Toprol-XL 100 mg daily. I do not think she will tolerate high dose of medications. Transitioned to oral Lasix 40 mg twice a day. Continue spironolactone 25 mg twice a day. Add Entresto at a low dose. Continue to hold beta-iwona for now. If she tolerates Entresto then we can start her on low-dose metoprolol-definitely not Toprol-XL 100 mg. We will follow along with you. Thank you for allowing me to participate in the care of your patient. Please feel free to contact me if you have any questions. Time Spent With Patient Time: Total time managing care of this patient today ____ minutes. Progress Note: Quality Stroke Does the patient have a stroke diagnosis?: No Procedures Date of Service Date of Service: 05/03/24
[2024-05-03] MEDS: Insulin Lispro 100 UNIT/ML 3 ML VIAL SUBCUT ×2 (13:13→22:04)
[2024-05-03] MEDS: Sacubitril/Valsartan 24/26 1 TAB TABLET PO (15:15)
[2024-05-03 15:30] VITALS: BP 118/64; PULSE 88; RESP 19; TEMP 36.7; O2SAT 97
[2024-05-03 15:40] LABS: Glucose, Whole Blood 74 mg/dL (60-115)
[2024-05-03 19:21] VITALS: BP 102/69; PULSE 108; RESP 18; TEMP 37; O2SAT 96
[2024-05-03 22:03] VITALS: BP 109/64
[2024-05-03] MEDS: Insulin Glargine,Hum.rec.anlog 100 UNIT/ML 10 ML VIAL 8 UNIT SUBCUT (22:03)
[2024-05-03] MEDS: Zolpidem Tartrate 5 MG TABLET PO (22:08)
[2024-05-03 23:01] LABS: Glucose, Whole Blood 190 mg/dL (60-115)
[2024-05-03 23:17] VITALS: BP 99/62; PULSE 96; RESP 18; TEMP 37.1; O2SAT 95
[2024-05-04 03:19] VITALS: BP 102/62; PULSE 99; RESP 16; TEMP 36.6; O2SAT 95
[2024-05-04 06:00] VITALS: BMI 25.6
[2024-05-04] MEDS: Acetaminophen 325 MG TABLET 650 MG PO (06:20)
[2024-05-04] MEDS: Omeprazole 20 MG CAPSULE.DR PO (06:20)
[2024-05-04 07:25] VITALS: BP 101/58; PULSE 93; RESP 18; TEMP 36.8; O2SAT 94
[2024-05-04 07:26] LABS: Glucose, Whole Blood 104 mg/dL (60-115)
[2024-05-04 10:52] LABS: Glucose, Whole Blood 196 mg/dL (60-115)
[2024-05-04] MEDS: Insulin Lispro 100 UNIT/ML 3 ML VIAL SUBCUT (11:30)
--- NOTE | 2024-05-04 11:30 | PM.DS ---
DS: Providers Provider Date of Service: 05/04/24 Date of admission: 04/30/24 20:05 Date of discharge: 05/04/24 Primary care physician: Cordelia Moraes PA-C Consults: 05/01/24 09:11 Consult to Cardiology Routine Consulting Provider: [facility] Reason for consultation: CHF DS: Diagnosis Discharge Diagnosis (1) Acute on chronic systolic congestive heart failure: Status: Acute DS: Summary Hospital Course Hospital Course: History of presenting illness: Date of Service: 04/30/24 <HAROON Car - Last Filed: 04/30/24 20:27> Attending physician on admission: Stephanie Gallardo <HAROON Car - Last Filed: 04/30/24 20:27> Chief Complaint: sob <HAROON Car - Last Filed: 04/30/24 20:27> 68-year-old female with a PMH significant for?cardiomyopathy, HFrEF, ICD in place, paroxysmal AFib on Eliquis, HTN, HLD, insulin-dependent type 2 diabetes, and hx of gout who presents to the ED with?multiple complaints, including abdominal pain, diarrhea and dyspnea. She was recently admitted from 04/15-04/19 due to acute chf exacerbation, was diuresed and was discharged on lasix 20mg daily. She states she never fully felt better following her hospitalization. She feels she has gained weight- since last admission, appears to have gained 14kg (?accuracy). She is reporting LYNCH and orthopnea as well as BLE edema. She states she has had 3-4 episodes of watery diarrhea today. No recent abx use. Has a dry cough with occassional pleuritic cp. No fevers, chills, abd pain, n/v, melena, hematochezia, lightheadedness, wheezing, palpitations, or chest pain. She reports she did call her PCP who increased her Lasix to 20 mg twice daily and added spironolactone. Since arrival, vital signs have been stable. She has a mild leukocytosis of 11.7 as well as microcytic anemia with H/H 10.5/33.1%. Creatinine 1.60, BUN 17, electrolyte levels normal except for magnesium 1.5. Troponin within normal limits. BNP 2865. Negative for COVID, flu, RSV. Chest x-ray shows improving CHF with some residual central vascular congestion and bilateral pleural effusions. EKG shows sinus rhythm with occasional PVCs and fusion complexes with incomplete left bundle branch block and nonspecific T-wave abnormality. In the ED, has been given 20 mg IV Lasix. Hospital course: 68-year-old female with a PMH significant for?cardiomyopathy, HFrEF, ICD in place, paroxysmal AFib on Eliquis, HTN, HLD, insulin-dependent type 2 diabetes, and hx of gout admitted for acute exacerbation of CHF with severe LV dysfunction , with elevated BNP patient treated with IV diuretics, renal function was followed closely since noted to have LALO likely cardiorenal, renal function improved with diuresis, patient was followed closely by Dr. Thomas Echocardiogram showed EF 15-20% with abnormal diastolic function, since patient was noted to have low blood pressures as well as LALO, high-dose Entresto and metoprolol was discontinued, patient renal function improved, CHF resolved, she is now being discharged home on low-dose of Entresto, Lasix 40 mg b.i.d., spironolactone 25 mg b.i.d. and Toprol-XL 25 mg daily. In regard to atrial fibrillation she has been continued on Eliquis for anticoagulation, heart rate is well controlled on current dose of metoprolol 25 mg daily. For insulin-dependent type 2 diabetes recommend to continue diabetic diet and home dose of insulin. hyperlipidemia recommend to continue statin. history gout no acute flare was noted continue allopurinol. Time Attestation Discharge Coordination Time (in mins): 36 Quality: Safe Use of Opioids Does Pt have an Active Cancer Diagnosis on the Problem List?: No Quality: Stroke Does the patient have a stroke diagnosis?: No Physical Exam Vital Signs: Vital Signs: Last Vital Signs Temp 98.3 F 05/04/24 07:25 Pulse 93 05/04/24 07:25 Resp 18 05/04/24 07:25 BP 101/58 L 05/04/24 07:25 Pulse Ox 94 05/04/24 07:25 O2 Del Method Room Air 05/04/24 07:25 BMI result Body Mass Index 25.6 Const: Other: General resting comfortably in no acute distress. Neck no JVD. CVS regular rate rhythm, Respiratory lungs clear to auscultation, no respiratory distress, no wheeze, no rales Gastrointestinal abdomen soft, non tender, bowel sounds audible. Extremities no edema. Neuro non focal Skin no rash Appropriate affect DS: Data Data Completed and Pending Labs on day of discharge: Laboratory Results - last 24 hr 05/03/24 05/03/24 05/04/24 15:37 20:42 07:22 POC Glucose 74 190 H 104 05/04/24 10:49 POC Glucose 196 H Discharge Plan Discharge Anticipated Discharge Date/Time: 05/04/24 11:30 Patient Disposition: Home, Self-Care Discharge Diagnosis: Acute on chronic CHF with severe LV dysfunction Referrals: Cordelia Moraes PA-C [Primary Care Provider] - 1 Week Discharge Medications: New Entresto 24-26 mg Tablet 1 tab PO BID Qty: 60 0RF Protocol: Hold for SBP< HOLD for SBP < : 90 metoprolol succinate 25 mg Tablet Extended Release 24 Hr 25 mg PO DAILY Qty: 30 0RF Protocol: Hold for SBP/HR < HOLD for SBP < : 90 HOLD for HR < : 60 furosemide 40 mg Tablet 40 mg PO BID@0900,1800 Qty: 60 0RF Protocol: Hold for SBP< HOLD for SBP < : 90 Continued (DME) lancing device [Adjustable Lancing Device] Misc See Rx Instructions .ROUTE .MEDSUPPLY Qty: 1 0RF Rx Instructions: 3 times a day (DME) lancets 28 gauge misc See Rx Instructions topical .MEDSUPPLY Qty: 200 3RF Rx Instructions: To test blood glucose 2 times a day (DME) pen needle, diabetic [BD Radha 2nd Gen Pen Needle] 32 gauge x 5/32 needle See Rx Instructions .ROUTE .MEDSUPPLY Qty: 50 6RF Rx Instructions: once a day atorvastatin 40 mg tablet 40 mg PO DAILY Qty: 90 0RF multivitamin with folic acid [Daily-Mallika (with folic acid)] 400 mcg tablet 1 tab PO DAILY silver sulfadiazine 1 % cream 1 appl topical DAILY PRN (Reason: ingrown nail) insulin glargine [Lantus Solostar U-100 Insulin] 100 unit/mL (3 mL) insulin pen 8 unit subcut BEDTIME Tradjenta 5 mg tablet 5 mg PO DAILY methocarbamol 750 mg tablet 750 mg PO BID PRN (Reason: Muscle Spasm) zolpidem 5 mg tablet 5 mg PO BEDTIME PRN (Reason: Insomnia) cholecalciferol (vitamin D3) 50 mcg (2,000 unit) capsule 50 mcg PO DAILY omeprazole 10 mg capsule,delayed release(DR/EC) 10 mg PO DAILY@0630 loratadine 10 mg tablet 10 mg PO DAILY PRN (Reason: Allergy Symptoms) aspirin 81 mg tablet,delayed release (DR/EC) 81 mg PO DAILY gabapentin 600 mg tablet 600 mg PO TID triamcinolone acetonide 0.5 % cream 1 appl topical BID PRN (Reason: flares) diclofenac sodium 1 % gel 1 ea topical QID PRN (Reason: Pain) fluticasone propionate 50 mcg/actuation spray,suspension 50 mcg intranasal DAILY PRN (Reason: allergies) Eliquis 5 mg tablet 5 mg PO BID allopurinol 100 mg tablet 100 mg PO DAILY Changed spironolactone 25 mg tablet 25 mg PO BID Qty: 60 0RF Discontinued metoprolol succinate 100 mg tablet extended release 24 hr 100 mg PO DAILY furosemide [Lasix] 20 mg tablet 20 mg PO BID Entresto 97-103 mg tablet 1 tab PO BID Discharge Orders: Discharge Order (Routine); Ordered 05/04/24 Ordered By: Cindy Allen Diet: Diabetic diet Activity on Discharge: As tolerated Stand Alone Forms: Patient Portal Discharge page Print Language: Lao Care Plan Goals: Take Lasix 40 mg 1 tablet twice daily Spironolactone 25 mg 1 tablet twice daily Take Toprol-XL 25 mg daily Dose of Entresto reduced to 24/26 mg, continue 1 tablet b.i.d. 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 Thomas in next 2-3 weeks Outpatient follow-up with primary care physician call for appointment Assessment: As above
[2024-05-04] MEDS: Aspirin Enteric Coated 81 MG TABLET.DR PO (11:41)
[2024-05-04] MEDS: Spironolactone 25 MG TABLET PO (11:41)
[2024-05-04] MEDS: Apixaban 5 MG TABLET PO (11:41)
[2024-05-04] MEDS: Metoprolol Succinate ER 25 MG TAB.ER.24H PO (11:41)
[2024-05-04] MEDS: Gabapentin 600 MG TABLET PO (11:41)
[2024-05-04] MEDS: Cholecalciferol (Vitamin D3) 25 MCG TABLET 50 MCG PO (11:42)
[2024-05-04] MEDS: allopurinoL 100 MG TABLET PO (11:42)
[2024-05-04] MEDS: Atorvastatin Calcium 40 MG TABLET PO (11:42)
[2024-05-04] MEDS: Sacubitril/Valsartan 24/26 1 TAB TABLET PO (11:42)
[2024-05-04] MEDS: Furosemide 40 MG TABLET PO (11:43)
[2024-05-04] MEDS: Multivitamin TABLET 1 TAB PO (11:43)
[2024-05-04] MEDS: 0.9 % Sodium Chloride Flush 3 ML SYRINGE IVFLUSH (11:48)
--- NOTE | 2024-05-04 12:14 | MHC.CM.PN ---
Patient has been medically cleared for dc to home today, self care. Last IMM was addressed on 05/02/2024.
== END 2024-05-04 14:15 | disposition home or self-care (01) | DRG 291 ==
LOC: HO.ED 17:54 → HO.EDOVER 21:35 → HO.S3 21:59 → HO.EDOVER 22:23 → HO.IMC 05-01 08:52
PROVIDERS: Nurse Practitioner Acute Care; Physician Assistant Medical; Student in an Organized Health Care Education/Training Program; Admitting Provider Physician Assistant; Emergency Provider Emergency Medicine; PCP Physician Assistant; Visit Provider Hospitalist
DX: I13.0 Hypertensive heart and chronic kidney disease with heart failure and stage 1 through stage 4 chronic kidney disease, or unspecified chronic kidney disease (principal); I50.23 Acute on chronic systolic (congestive) heart failure; N17.9 Acute kidney failure, unspecified; N18.30 Chronic kidney disease, stage 3 unspecified; E11.22 Type 2 diabetes mellitus with diabetic chronic kidney disease; I48.0 Paroxysmal atrial fibrillation; E78.5 Hyperlipidemia, unspecified; I42.8 Other cardiomyopathies; M10.9 Gout, unspecified; E11.40 Type 2 diabetes mellitus with diabetic neuropathy, unspecified; Z20.822 Contact with and (suspected) exposure to COVID-19; Z95.810 Presence of automatic (implantable) cardiac defibrillator; Z79.4 Long term (current) use of insulin; Z79.01 Long term (current) use of anticoagulants; Z79.82 Long term (current) use of aspirin; Z79.899 Other long term (current) drug therapy
CPT/HCPCS: 0241U; 36415; 71046; 80048; 80076; 82947; 83690; 83735; 83880; 84484; 85025; 93005; 93306; 99285; J1940; J3475; Q9957

== ENCOUNTER → 2024-04-30 17:42 | Outpatient (BNV) | payer OTHER, SELFPAY | PROVIDERS: Emergency Provider Emergency Medicine; PCP Physician Assistant; Visit Provider Physician Assistant | DX: I50.23 Acute on chronic systolic (congestive) heart failure (principal) | CPT/HCPCS: 99223; 99232; 99239 ==

== ENCOUNTER 2024-04-30 20:05 | Outpatient (BNV) | payer OTHER, SELFPAY | END 2024-05-02 07:00 | PROVIDERS: Admitting Provider Physician Assistant; Emergency Provider Emergency Medicine; PCP Physician Assistant; Visit Provider Internal Medicine Cardiovascular Disease | DX: I34.0 Nonrheumatic mitral (valve) insufficiency (principal); I36.1 Nonrheumatic tricuspid (valve) insufficiency; R93.1 Abnormal findings on diagnostic imaging of heart and coronary circulation | CPT/HCPCS: 93306 ==

== ENCOUNTER → 2024-04-30 20:05 | Outpatient (BNV) | payer OTHER, SELFPAY | PROVIDERS: Admitting Provider Physician Assistant; Emergency Provider Emergency Medicine; PCP Physician Assistant; Visit Provider Internal Medicine | DX: I50.23 Acute on chronic systolic (congestive) heart failure (principal) | CPT/HCPCS: 99223; 99233 ==

== ENCOUNTER 2024-06-16 15:13 | Outpatient (AMB) | payer OTHER, SELFPAY ==
--- NOTE | 2024-06-16 15:14 | A.OFFVIS_ITS ---
Vital Signs 06/16/24 15:15 Height 4 ft 11 in Weight 124 lb 5.451 oz BMI 25.1 BP 92/60 Blood Pressure Location Rt brachial Position Sitting Pulse 97 Pulse Source Pulse Oximeter Intake Visit Reasons: f/u MNG-confirmed Intake Note: Patient present today for MNG follow up visit. 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 Services: Prenatal Nurse Present Prenatal Nurse Name: Roel [id number] Information Interpreted: non-clinical & clinical Accompanied by: Self / Same As Patient Allergies egg [EGG] Allergy (Intermediate, Verified 06/16/24 15:18) RASH Fish Containing Products Allergy (Intermediate, Verified 06/16/24 15:18) RASH oxycodone [OXYCODONE] Allergy (Intermediate, Verified 06/16/24 15:18) RASH acetaminophen [From PERCOCET] Allergy (Unknown, Verified 06/16/24 15:18) RASH/ITCHING codeine [CODEINE] Allergy (Unknown, Verified 06/16/24 15:18) ITCHING hydrocodone [From VICODIN] Allergy (Unknown, Verified 06/16/24 15:18) UNKNOWN lisinopril [LISINOPRIL] Allergy (Unknown, Verified 06/16/24 15:18) UNKNOWN metoclopramide [From REGLAN] Allergy (Unknown, Verified 06/16/24 15:18) UNKNOWN naproxen [Naprosyn] Allergy (Unknown, Verified 06/16/24 15:18) Unknown tramadol Allergy (Unknown, Verified 06/16/24 15:18) Unknown Medication List - Last Reconciled 06/16/24 by Omer bAbott MD allopurinol 100 mg PO DAILY apixaban (Eliquis) 5 mg PO BID aspirin 81 mg PO DAILY atorvastatin 40 mg PO DAILY cholecalciferol (vitamin D3) 50 mcg PO DAILY diclofenac sodium 1% 1 ea topical QID PRN empagliflozin (Jardiance) 10 mg PO DAILY fluticasone propionate 50 mcg/actuation 50 mcg intranasal DAILY PRN furosemide 40 mg See Protocol PO BID@0900,1800 gabapentin 600 mg PO TID insulin glargine (Lantus Solostar U-100 Insulin) 8 units subcut BEDTIME lancets To test blood glucose 2 times a day lancing device (Adjustable Lancing Device) 3 times a day linagliptin (Tradjenta) 5 mg PO DAILY loratadine 10 mg PO DAILY PRN methocarbamol 750 mg PO BID PRN metoprolol succinate ER 25 mg See Protocol PO DAILY multivitamin with folic acid 400 mcg (Daily-Mallika (with folic acid)) 1 tab PO DAILY omeprazole 10 mg PO DAILY@0630 pen needle, diabetic (BD Radha 2nd Gen Pen Needle) once a day sacubitril-valsartan 24-26 mg (Entresto) 1 tab See Protocol PO BID silver sulfadiazine 1% 1 appl topical DAILY PRN spironolactone 25 mg PO BID triamcinolone acetonide 0.5% 1 appl topical BID PRN zolpidem 5 mg PO BEDTIME PRN HPI Comments Details: 69 YO Female with a PMHx of a NTMNG who is seen in F/U. She was previously followed by Dr. Amos. She has refused to follow with us for her T2DM and is now following with her PCP. She last saw Dr. Burt on 01/05/2023 She has a longstanding history of a multinodular thyroid and has undergone multiple FNA biopsies in the past as detailed below: 12/10/2017: RMP 1.6 cm - Benign cytology RLP 1.2 cm - Benign cytology 01/20/2019: RMP 1.8 cm - Atypia of Undetermined Significance (bethesda category III), Affirma Benign 05/24/2020: RMP 2.4 cm - Benign cytology She then had a repeat US 06/20/2021 which revealed growth of her RMP and RLP nodules. She was scheduled for FNA biopsy and underwent this with IR on 01/06/2022 with her RMP 1.2 cm thyroid nodule benign (bethesda category II) and her RLP 1.6 cm thyroid nodule nondiagnostic. She then represented for an FNA biopsy with pr 04/09/2022 with identification of a new RMP 1.2 cm hypoechoic nodule with irregular borders. FNA was recommended of this nodule, but the patient refused, and instead requested a R hemithyroidectomy. She underwent her right hemithyroidectomy 11/10/2022 with official surgical path benign, revealing NIFT-P. She is seen today in F/U. She has denied any compressive symptoms. She denies any symptoms of hyper or hypothyroidism. She denies any personal history of radiation to the head or the neck. She denies any family history of thyroid cancer. US Thyroid: 06/20/2021 Right Thyroid Lobe: 5.5 x 1.8 x 1.9 cm, volume 9.8 mL. Previously 5.3 x 2.3 x 1.7 cm, volume 10.8 mL. Parenchyma: The gland echotexture is heterogeneous. Thyroid vascularity is normal. Left Thyroid Lobe: 4.9 x 1.1 x 1.8 cm, volume 5.1 mL. Previously 4.1 x 1.5 x 1.7 cm, volume 5.5 mL. Parenchyma: The gland echotexture is homogeneous. Thyroid vascularity is normal. Isthmus: 0.3 cm in maximum AP dimension. Previously 0.5 cm. There are multiple nodules. Largest nodules are measured. Estimated total number of nodules greater than or equal to 1 cm: 3. Leather Leveler nodules are described as follows: 1.? Location: Right mid. ?? ? Size: 1.9 x 0.96 x 1.6 cm, volume 1.6 mL. ?? ? Previously: 1.4 x 0.9 x 1.3 cm, volume 1.2 mL. ?? ? Nodule characteristics: ?? ? Composition: Mixed cystic and solid (1). ?? ? Echogenicity: Anechoic (0). ?? ? Shape: Not taller than wide (0). ?? ? Margins: Lobulated (2). ?? ? Echogenic Foci: None (0). ? ACR TI-RADS total points: 3 ?? ? ACR TI-RADS category: 3 ? Significant change in size (>/= 20% in 2 dimensions and minimal increase of 2 mm or 50% or greater increase in volume): ?? ? Change in features: ?? ? Change in ACR TI-RADS risk category: 2.? Location: Right mid. ?? ? Size: 1.1 x 0.8 x 1.3 cm, volume 0.6 mL. ?? ? Previously: 2.4 x 1.2 x 2.4 cm, volume 3.61 mL. ?? ? Nodule characteristics: ?? ? Composition: Solid (2). ?? ? Echogenicity: Hyperechoic (1). ?? ? Shape: Not taller than wide (0). ?? ? Margins: Smooth (0). ?? ? Echogenic Foci: None (0).? ACR TI-RADS total points: 3 ?? ? ACR TI-RADS category: 3 ? Significant change in size (>/= 20% in 2 dimensions and minimal increase of 2 mm or 50% or greater increase in volume): ?? ? Change in features: ?? ? Change in ACR TI-RADS risk category: 3.? Location: Right superior. ?? ? Size: 1.3 x 1.3 x 1.2 cm, volume 1.06 mL. ?? ? Previously: 1.7 x 1.4 x 1.4 cm, volume 1.7 mL. ?? ? Nodule characteristics: ?? ? Composition: Solid (2). ?? ? Echogenicity: Isoechoic (1). ?? ? Shape: Not taller than wide (0). ?? ? Margins: Ill-defined (0). ?? ? Echogenic Foci: None (0). ? ACR TI-RADS total points: 3 ?? ? ACR TI-RADS category: 3 ? Significant change in size (>/= 20% in 2 dimensions and minimal increase of 2 mm or 50% or greater increase in volume): ?? ? Change in features: ?? ? Change in ACR TI-RADS risk category: 4.? Location: Left mid. ?? ? Size: 0.4 x 0.3 x 0.4 cm, volume 0.03 mL. ?? ? Previously: 0.7 x 0.4 x 0.5 cm, volume 0.07 mL. ?? ? Nodule characteristics: ?? ? Composition: Cystic(0). ?? ? ACR TI-RADS total points: 0 ?? ? ACR TI-RADS category: 1 ? Significant change in size (>/= 20% in 2 dimensions and minimal increase of 2 mm or 50% or greater increase in volume): ?? ? Change in features: ?? ? Change in ACR TI-RADS risk category: 5.? Location: Left inferior. ?? ? Size: 0.4 x 0.3 x 0.4 cm, volume 0.04 mL. ?? ? Previously: 0.4 x 0.2 x 0.4 cm, volume 0.01 mL. ?? ? Nodule characteristics: ?? ? Composition: Mixed cystic and solid (1). ?? ? Echogenicity: Isoechoic (1). ?? ? Shape: Not taller than wide (0). ?? ? Margins: Ill-defined (0). ?? ? Echogenic Foci: Punctate echogenic foci (3).? ACR TI-RADS total points: 5 ?? ? ACR TI-RADS category: 4 ? Significant change in size (>/= 20% in 2 dimensions and minimal increase of 2 mm or 50% or greater increase in volume): ?? ? Change in features: ?? ? Change in ACR TI-RADS risk category: NODES: No lymphadenopathy is seen in the tissue surrounding the thyroid gland. There are small left cervical lymph nodes. These are normal in size and demonstrate normal ultrasound morphology and flow. Labs: Laboratory Tests 08/27/22 10:05 TSH 0.45 Free T4 1.03 No obstructive sx PFSH Medical History Pericardial cyst CHF (congestive heart failure) CHF (congestive heart failure) Hypoglycemia unawareness associated with type 2 diabetes mellitus Vitamin D deficiency Diabetic neuropathy associated with type 2 diabetes mellitus CKD (chronic kidney disease) stage 3, GFR 30-59 ml/min Hypertension Dyslipidemia retirement (current) use of insulin Non-toxic multinodular goiter Diabetes type 2, uncontrolled Surgical History Hx of biopsy AICD (automatic cardioverter/defibrillator) present Hx of appendectomy Hx of hysterectomy Family History Father Alcoholism Diabetes Mother Arthritis Hypertension Social History Household Members: None Household Members Other:: Lives by self Housing: Apartment Do you presently have visiting nurse or other home services: Yes Unable to assess alcohol history related to: Unknown Alcohol intake: current Alcohol intake frequency: does not drink Patient Tobacco Use Status: Never used Tobacco e-Cigarette/Vaping Use: Never Used Second Hand Smoke Exposure: No service: No Physical Exam Vital Signs: Last Vital Signs Pulse 97 06/16/24 15:15 BP 92/60 06/16/24 15:15 BMI result Body Mass Index 25.1 Const Other: Healed scar status post right hemithyroidectomy. Left lobe was out the presence of any nodules palpable Assessment & Plan Assessment & Plan (1) Non-toxic multinodular goiter: Code(s): E04.2 - Nontoxic multinodular goiter Category: Medical Plan: This 68-year-old female with a history of multinodular goiter status post right lobectomy. Recent thyroid ultrasound shows subcentimeter nodules with 1 nodule nonsuspicious in the mid left pole that is new. She is clinically euthyroid. Plan is to check TSH and free T4. Will have patient follow up with Dr. Moreno the manager immunology in our practice with expertise in thyroid ultrasound Orders: Orders Thyroid Stimulating Hormone Today E04.2 - Nontoxic multinodular goiter Free T4 (Free Thyroxine) Today E04.2 - Nontoxic multinodular goiter Coding Level of Care Code Est Pt Level 3 (16626) Diagnoses Non-toxic multinodular goiter E04.2
[2024-06-16 15:15] VITALS: BP 92/60; PULSE 97; BMI 25.1
== END 2024-06-16 15:45 | disposition home or self-care (01) ==
PROVIDERS: Visit Provider Internal Medicine Endocrinology, Diabetes & Metabolism
DX: E04.2 Nontoxic multinodular goiter (principal)
CPT/HCPCS: 99213

== ENCOUNTER → 2024-06-16 15:13 | Outpatient (BNVA) | payer OTHER, SELFPAY | PROVIDERS: Visit Provider Internal Medicine Endocrinology, Diabetes & Metabolism | DX: E04.2 Nontoxic multinodular goiter (principal) | CPT/HCPCS: 99212 ==

== ENCOUNTER 2024-06-26 14:37 | Emergency (ER) | payer OTHER, SELFPAY ==
--- NOTE | 2024-06-26 14:48 | ED.EAR ---
HPI - Ear Problem General Chief complaint: Ear Problems Stated complaint: bleeding from r ear Time Seen by Provider: 06/26/24 15:34 Source: patient Mode of arrival: ambulatory Limitations: no limitations History of Present Illness ED Provider: JUNO Bishop HPI Narrative: 69 year old female presents w/ small amount of bleeding form right ear since yesterday. No trauma. No Q-tips. She scratched her ear at one point but doesnt recall the bleeding starting after that. No headache, cp, vision changes, dizziness, weakness, nausea, vomiting. Related Data Home Medications ?Medication ?Instructions ?Recorded ?Confirmed aspirin 81 mg tablet,delayed 81 mg PO DAILY 06/04/20 06/16/24 release cholecalciferol (vitamin D3) 50 50 mcg PO DAILY 06/04/20 06/16/24 mcg (2,000 unit) capsule gabapentin 600 mg tablet 600 mg PO TID 06/04/20 06/16/24 loratadine 10 mg tablet 10 mg PO DAILY PRN Allergy Symptoms 06/04/20 06/16/24 methocarbamol 750 mg tablet 750 mg PO BID PRN Muscle Spasm 06/04/20 06/16/24 omeprazole 10 mg capsule,delayed 10 mg PO DAILY@0630 06/04/20 06/16/24 release zolpidem 5 mg tablet 5 mg PO BEDTIME PRN Insomnia 06/04/20 06/16/24 apixaban 5 mg tablet (Eliquis) 5 mg PO BID 01/05/23 06/16/24 diclofenac sodium 1 % topical gel 1 ea topical QID PRN Pain 01/05/23 06/16/24 fluticasone propionate 50 50 mcg intranasal DAILY PRN 01/05/23 06/16/24 mcg/actuation nasal allergies spray,suspension triamcinolone acetonide 0.5 % 1 appl topical BID PRN flares 01/05/23 06/16/24 topical cream allopurinol 100 mg tablet 100 mg PO DAILY 01/26/24 06/16/24 insulin glargine 100 unit/mL (3 8 unit subcut BEDTIME 01/31/24 06/16/24 mL) subcutaneous pen (Lantus Solostar U-100 Insulin) multivitamin with folic acid 400 1 tab PO DAILY 01/31/24 06/16/24 mcg tablet (Daily-Mallika (with folic acid)) silver sulfadiazine 1 % topical 1 appl topical DAILY PRN ingrown 01/31/24 06/16/24 cream nail linagliptin 5 mg tablet (Tradjenta) 5 mg PO DAILY 04/15/24 06/16/24 empagliflozin 10 mg tablet 10 mg PO DAILY 06/16/24 06/16/24 (Jardiance) Previous Rx's ?Medication ?Instructions ?Recorded lancing device (Adjustable Lancing #1 ea 02/01/21 Device) lancets 28 gauge #200 ea 05/02/21 pen needle, diabetic 32 gauge x #50 ea 01/08/22 (BD Radha 2nd Gen Pen Needle) atorvastatin 40 mg tablet 40 mg PO DAILY #90 tabs 08/21/23 furosemide 40 mg tablet 40 mg PO BID@0900,1800 #60 tabs 05/04/24 metoprolol succinate 25 mg 25 mg PO DAILY #30 tabs 05/04/24 tablet,extended release 24 hr sacubitril 24 mg-valsartan 26 mg 1 tab PO BID #60 tabs 05/04/24 tablet (Entresto) spironolactone 25 mg tablet 25 mg PO BID #60 tabs 05/04/24 ciprofloxacin 0.3 %-dexamethasone 4 drp otic (ear) right BID 7 days 06/26/24 0.1 % ear drops,suspension #7.5 mL Allergies Allergy/AdvReac Type Severity Reaction Status Date / Time egg [EGG] Allergy Intermediate RASH Verified 06/26/24 14:54 Fish Containing Products Allergy Intermediate RASH Verified 06/26/24 14:54 oxycodone [OXYCODONE] Allergy Intermediate RASH Verified 06/26/24 14:54 acetaminophen [From PERCOCET] Allergy Unknown RASH/ITCHIN Verified 06/26/24 14:54 G codeine [CODEINE] Allergy Unknown ITCHING Verified 06/26/24 14:54 hydrocodone [From VICODIN] Allergy Unknown UNKNOWN Verified 06/26/24 14:54 lisinopril [LISINOPRIL] Allergy Unknown UNKNOWN Verified 06/26/24 14:54 metoclopramide [From REGLAN] Allergy Unknown UNKNOWN Verified 06/26/24 14:54 naproxen [Naprosyn] Allergy Unknown Unknown Verified 06/26/24 14:54 tramadol Allergy Unknown Unknown Verified 06/26/24 14:54 Review of Systems Review of Systems: Yes all other systems are reviewed and are negative [facility] Past Medical History Attestation statement: The following information was validated with the patient. 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 Non-toxic multinodular goiter Diabetes type 2, uncontrolled Surgical History Hx of biopsy AICD (automatic cardioverter/defibrillator) present Hx of appendectomy Hx of hysterectomy Family History Family History Father Alcoholism Diabetes Mother Arthritis Hypertension Social History Social History Household Members: None Household Members Other:: Lives by self Housing: Apartment Do you presently have visiting nurse or other home services: Yes Unable to assess alcohol history related to: Unknown Alcohol intake: current Alcohol intake frequency: does not drink Patient Tobacco Use Status: Never used Tobacco e-Cigarette/Vaping Use: Never Used Second Hand Smoke Exposure: No Advance Directives: No Advance Directives Information Provided: Yes service: No Physical Exam Vital Signs: Vital Signs: Last Vital Signs Temp 97.4 F 06/26/24 17:05 Pulse 106 H 06/26/24 17:05 Resp 16 06/26/24 17:05 BP 114/70 06/26/24 17:05 Pulse Ox 97 06/26/24 17:05 O2 Del Method Room Air 06/26/24 17:05 BMI result Body Mass Index 25.0 vss Appearance: Alert.? Oriented X3.? No acute distress.? Head: Normocephalic, atraumatic, no step-offs or deformities Eyes: Pupils equal, round and reactive to light.?abrasion to ear canal no blood behind the TM. No pain w/ manipulation of external here. No bulgging of TM or erythema. Neck: Normal inspection.? Neck supple.? CVS: Normal heart rate and rhythm.? Pulses normal.? Respiratory: No respiratory distress.? Breath sounds normal.? Abdomen: Soft and nontender.? Skin: Skin warm and dry.? Normal skin color.? Normal skin turgor.? Extremities: No lower extremity edema.? No calf ttp. 5/5 strength to bilateral upper and lower extremities Neuro: Oriented X 3.? No motor deficit.? No sensory deficit. CN 2-12 intact Course Course Course Narrative: This is a rapid medical exam. Deferred additional HPI, ROS, PE to primary provider. 69 yo female with past medical history of cardiomyopathy, HFrEF, ICD in place, paroxysmal AFib on Eliquis, HTN, HLD, insulin-dependent type 2 diabetes, and hx of gout here with complaints of bleeding from right ear since yesterday. Unable to visualize TM in triage d/t blood in canal. May need irrigation for visualization. TY Ruelas APRN Reevaluation(s) Reevaluation #1: Ciprodex sent to pharmacy patient advised to return w/ new or worsening sx. Verbalizes understanding of this. Time: 17:26 Medical Decision Making Medical Decision Making [facility] Narrative: 1723 69 year old female presents w/ small amounts of blood in the right ear. PE w/ abrasion to ear canal no blood behind the TM. No pain w/ manipulation of external here. No bulgging of TM or erythema. Hx and pe concernng for abrasion in EAC. NO signs of OM, OE, ruptured TM. No signs of hemodynamic instability Dr. Buitrago evaluated patient who agrees with dx and treatment plan. Plan- dc w/ ciprodex. Differential Diagnosis Differential Diagnoses: The differential diagnosis associated with the presentation includes ( Dr. Buitrago evaluated patient who agrees with dx and treatment plan. ) Admission/Observation Consideration of admission/observation: Escalation of care including admission/observation considered (eduardoley ) Consult Healthcare Provider Management of the patient was discussed with: Route Driver Salesperson (Attending dr. Buitrago ) Prescription Management I considered prescription management with: Antibiotic Discharge Plan Discharge Clinical Impression: Abrasion of ear canal Patient Disposition: Home, Self-Care Instructions: Abrasion (ED), Ear Abrasion (ED) Additional Instructions: Take your medications as prescribed. If you were prescribed antibiotics today, it is important that you take your medication to their entirety, do not skip any doses, do not finish them early. Follow-up with your primary care provider this week. Return to the emergency department with new or worsening symptoms. In case of emergency call 911 Prescriptions: New ciprofloxacin-dexamethasone 0.3-0.1 % drops,suspension 4 drp otic (ear) right BID 7 Days Qty: 7.5 0RF No Action (DME) lancing device [Adjustable Lancing Device] Misc See Rx Instructions .ROUTE .MEDSUPPLY Qty: 1 0RF Rx Instructions: 3 times a day (DME) lancets 28 gauge misc See Rx Instructions topical .MEDSUPPLY Qty: 200 3RF Rx Instructions: To test blood glucose 2 times a day (DME) pen needle, diabetic [BD Radha 2nd Gen Pen Needle] 32 gauge x 5/32 needle See Rx Instructions .ROUTE .MEDSUPPLY Qty: 50 6RF Rx Instructions: once a day atorvastatin 40 mg tablet 40 mg PO DAILY Qty: 90 0RF multivitamin with folic acid [Daily-Mallika (with folic acid)] 400 mcg tablet 1 tab PO DAILY silver sulfadiazine 1 % cream 1 appl topical DAILY PRN (Reason: ingrown nail) insulin glargine [Lantus Solostar U-100 Insulin] 100 unit/mL (3 mL) insulin pen 8 unit subcut BEDTIME Tradjenta 5 mg tablet 5 mg PO DAILY furosemide 40 mg Tablet 40 mg PO BID@0900,1800 Qty: 60 0RF Protocol: Hold for SBP< HOLD for SBP < : 90 metoprolol succinate 25 mg Tablet Extended Release 24 Hr 25 mg PO DAILY Qty: 30 0RF Protocol: Hold for SBP/HR < HOLD for SBP < : 90 HOLD for HR < : 60 Entresto 24-26 mg Tablet 1 tab PO BID Qty: 60 0RF Protocol: Hold for SBP< HOLD for SBP < : 90 spironolactone 25 mg tablet 25 mg PO BID Qty: 60 0RF methocarbamol 750 mg tablet 750 mg PO BID PRN (Reason: Muscle Spasm) zolpidem 5 mg tablet 5 mg PO BEDTIME PRN (Reason: Insomnia) cholecalciferol (vitamin D3) 50 mcg (2,000 unit) capsule 50 mcg PO DAILY omeprazole 10 mg capsule,delayed release(DR/EC) 10 mg PO DAILY@0630 loratadine 10 mg tablet 10 mg PO DAILY PRN (Reason: Allergy Symptoms) aspirin 81 mg tablet,delayed release (DR/EC) 81 mg PO DAILY gabapentin 600 mg tablet 600 mg PO TID triamcinolone acetonide 0.5 % cream 1 appl topical BID PRN (Reason: flares) diclofenac sodium 1 % gel 1 ea topical QID PRN (Reason: Pain) fluticasone propionate 50 mcg/actuation spray,suspension 50 mcg intranasal DAILY PRN (Reason: allergies) Eliquis 5 mg tablet 5 mg PO BID allopurinol 100 mg tablet 100 mg PO DAILY Jardiance 10 mg tablet 10 mg PO DAILY Referrals: Cordelia Moraes PA-C [Primary Care Provider] - 2 days Interventions: ED Discharge Assessment Last Done: 06/26/24 17:05 Print Language: Vincentian
[2024-06-26 14:49] VITALS: BP 114/70; PULSE 106; RESP 16; TEMP 36.3; O2SAT 97; BMI 25.0
[2024-06-26 17:05] VITALS: BP 114/70; PULSE 106; RESP 16; TEMP 36.3; O2SAT 97
== END 2024-06-26 17:29 | disposition home or self-care (01) ==
PROVIDERS: Emergency Provider Internal Medicine; PCP Physician Assistant
DX: S00.411A Abrasion of right ear, initial encounter (principal); E11.9 Type 2 diabetes mellitus without complications; X58.XXXA Exposure to other specified factors, initial encounter; Y93.89 Activity, other specified; Y92.89 Other specified places as the place of occurrence of the external cause; Y99.8 Other external cause status; Z79.899 Other long term (current) drug therapy; Z79.4 Long term (current) use of insulin; Z79.01 Long term (current) use of anticoagulants
CPT/HCPCS: 99282; 99283

== ENCOUNTER 2024-08-26 10:48 | Outpatient (REF) | payer OTHER, SELFPAY ==
--- OUTSIDE RECORDS SUMMARY | 2024-08-26 12:31 | XMS_ITS | Clinical Summary ---
Author Organization [employer] [facility] Address [address] [place] [address] [address] [place] [address] Care Team Providers Care Memory Care Program Resident Name Role Phone Unavailable Primary Care Provider Unavailabl e Social History Tobacco Use Types Packs/Day Years Used Date Smoking Tobacco: Never Assessed Comments Unknown Sex and Gender Information Value Date Recorded Sex Assigned at Female 06/02/2022 10:16 AM EDT Legal Sex Female 10:16 AM EDT Gender Identity Female 06/02/2022 10:16 AM EDT Sexual Orientation Straight 06/02/2022 10 :16 AM EDT Plan of Treatment Health Maintenance Due Date Last Done Comments CT Colonography 1956 Colonoscopy 1956 Colorectal Cancer Screening 1956 Depression Screening 1956 FIT DNA/Cologuard 1956 FIT 1956 FOBT 1956 Lipid Panel 1956 SDOH Screening 1956 Sigmoidoscopy 1956 Alcohol/Substance Use Screening 1968 Tobacco Screening 1968 Hepatitis C Screening 1974 Mammogram 1996 Zoster Vaccines (1 of 2) 2006 RSV Patients and Patients Aged 60 years or older (1 - Risk 60-74 years 1-dose series) 2016 Dental X-Ray: Full Mouth 02/12/2019 02/12/2016 DTaP/Tdap/Td Vaccines (2 - Td or Tdap) 02/16/2019 02/16/2009 Dental X-Ray: Bitewings 05/28/2019 05/27/20 18, 04/09/2017, 02/12/2016, Additional history exists Dental Oral Exam 12/08/2019 06/08/2019, , 04/09/2017, Additional history exists Dental Prophylaxis 12/08/2019 06/08/2019, 0 12/01/2018, 05/27/2018, Additional history exists Pneumococcal Vaccine: 65+ Years (2 of 2 - PCV) 2021 02/16/2009 COVID-19 Vaccine (3 - season) 2024 10/29/2020, 09/30/2020 Influenza Vaccine (#1) 2024 10/17/2019, 2016 HIB Vaccines Aged Out No longer eligi ble based on patient's age to complete this topic HPV Vaccines Aged Out No longer eligi ble based on patient's age to complete this topic Hepatitis A Vaccines Aged Out No long er eligible based on patient's age to complete this topic Hepatitis B Vaccines Aged Out No long er eligible based on patient's age to complete this topic IPV Vaccines Aged Out No longer eligi ble based on patient's age to complete this topic Meningococcal Vaccine Aged Out No suleiman gary eligible based on patient's age to complete this topic RSV under 20 months Aged Out No longe r eligible based on patient's age to complete this topic Rotavirus Vaccines Aged Out No longer eligible based on patient's age to complete this topic Procedures Procedure Name Priority Date/Time Associated Diagnosis Comments PROPHYLAXIS - ADULT Routine 06/08/2019 1 2:00 AM EST PERIODIC ORAL EVALUATION - ESTABLISHED PATIENT Routine 06/08/2019 12:00 AM EST BITEWINGS - 4 RADIOGRAPHIC IMAGES Routine 05/27/2018 12:00 AM EDT DIAGNOSTIC - DIAGNOSTIC IMAGING - INTRAORAL - COMPREHENSIVE SERIES OF RADIOGRAPHIC IMAGES Routine 02/12/2016 12:00 AM EDT from Last 3 Months or Most Recently Relevant to Health Maintenance Insurance DENTAL - [facility] * Guarantor: Lida Peoples Account Type Relation to Patient Date of Phone Billing Address Personal/Family Self [address]
--- OUTSIDE RECORDS SUMMARY | 2024-08-26 12:31 | XMS_ITS | Clinical Summary ---
Author Organization [facility] Address [address] [place] [address] [place] [address] Phone Care Team Providers Care Grain Roaster Name Role Phone Catherine Cuellar MD Primary Care Provider [phone]- [phone] Allergies Active Allergy Reactions Criticality Noted Date Comments Codeine Other (see comments) 12/16/2017 All pain killers Itching Hydrocodone-Acetaminophen Other (see comments) 12/03/2020 Iodinated Contrast Media 01/17/2020 Lisinopril Other (see comments) 01/21/2018 Metoclopramide Other (see comments) 01/21/2018 No reaction documented. Naproxen Other (see comments) 01/21/2018 Oxycodone 01/28/2018 Oxycodone-Acetaminophen Other (see comments) 12/03/2020 Pollen Extract Itching 09/05/2021 Medications aspirin (ST IRENA) 81 MG EC tablet Take 81 mg by mouth 1 Active carvedilol (COREG) 25 MG tablet Comments: Patient Notes: TOME MONA TABLETA DOS VECES AL ANANTH CON LAS COMIDAS Duration: 90 9 Active digoxin (LANOXIN) 125 MCG tablet Take 0.25 tablets by mouth 3 (three) times a week 9 Active fluticasone (FLONASE) 50 MCG/ACT nasal spray TAKE 1 SPRAY IN EACH NOSTRIL ONCE A DAY NEEDED FOR RHINITIS OR ALLERGIES 1 Active furosemide (LASIX) 40 MG tablet Take 1 tablet by mouth 2 (two) times a day 1 Active gabapentin (NEURONTIN) 600 MG tablet TOME MONA TABLETA POR VIA ORAL ALISTAIR VECES AL ANANTH 1 Active Lantus SoloStar 100 UNIT/ML injection INJECT 10 UNITS ONCE A DAY, DOSE DECREASED 1 Active linaGLIPtin (Tradjenta) 5 MG tablet Take 1 tablet by mouth 1 (one) time each day Active loratadine (CLARITIN) 10 MG tablet 1 Active methocarbamol (ROBAXIN) 750 MG tablet TOME MONA TABLETA DOS VECES AL D A PARA EL ESPASMO MUSCULAR CUANDO SEA NECESARIO *WILL CAUSE SEDATION 1 Active omeprazole (PriLOSEC) [address] capsule TOME MONA CAPSULA TODOS LOS SANABRIA 1 Active Entresto 49-51 MG per tablet 1 Active triamcinolone (KENALOG) 0.5 % cream APPLY TO ITCHY LESION ON SKIN DAILY UNTIL HEALED 1 Active zolpidem (AMBIEN) 10 MG tablet Take 1 tablet by mouth 1 (one) time each day Active Cholecalciferol 50 MCG (2000 UT) capsule Take 1 capsule by mouth 1 (one) time each day 2 Active albuterol HFA (PROVENTIL HFA;VENTOLIN HFA) 108 (90 Base) MCG/ACT inhaler TOME DOS INHALACIONES CADA 4-6 HORAS CUANDO SEA NECESARIO PARA LA FALTA DE RESPIRACI N OR WHEEZING 1 Active famotidine (PEPCID) 40 MG tablet TOME MONA TABLETA TODOS LOS D 2 Active ferrous sulfate 325 (65 Fe) MG tablet TOME MONA TABLETA DOS VECES AL ANANTH 180 tablet 3 Active Active Problems Problem Noted Date Diagnosed Date Anemia of chronic renal failure 11/30/2020 Chronic systolic heart failure 11/30/2020 Overview (11/30/2020): Dr. Jens Rosas, [facility] cardiology Hypertensive disorder 11/30/2020 Hypercholesterolemia 11/30/2020 Gastroesophageal reflux disease 11/30/2020 Fibromyalgia 11/30/2020 Ectopic kidney 11/30/2020 Dilated cardiomyopathy 11/30/2020 Overview (11/30/2020): 05/2017 EF 40% Dr. Jens Rosas -[facility] cardiology. AICD Proteinuria 11/30/2020 Renal disorder due to type 2 diabetes mellitus 0 11/30/2020 Pain of knee region 05/03/2019 Chronic kidney disease stage 3 due to type 2 diabetes mellitus 08/17/2018 Overview (11/30/2020): Cr 2.0 on 07/29/18 - outside labs by Endo. Referred by Josue to Dr Cornel Cutler ([facility]). Latest Cr 06/06/19 1.14, Hgb 10.3 Anemia 01/21/2018 Overview (11/30/2020): Chronic. Latest Hgb 10.3 (06/06/19) Automatic implantable cardiac defibrillator in s itu 01/21/2018 Overview (11/30/2020): For primary prevention Chronic low back pain 01/21/2018 Constipation 01/21/2018 Depressive disorder 01/21/2018 Diabetic peripheral neuropathy 01/21/2018 Insomnia 01/21/2018 Herpes zoster 01/21/2018 Overview (11/30/2020): 02/2016 Gout 01/21/2018 Overview (11/30/2020): 2018 Left toe Eczema 01/21/2018 Plantar fasciitis of left foot 01/21/2018 Type 2 diabetes mellitus 08/03/2007 Immunizations Name Administration Dates Next Due Influenza TIV (IM) 05/28/2017 Pneumococcal Polysaccharide 02/16/2009 Tdap 02/16/2009 Family History Medical History Relation Comments Heart disease Mother Hypertension Mother Kidney disease Mother on dialysis Diabetes Sibling Relation Status Comments Father Mother Alive Sibling Social History Tobacco Use Types Packs/Day Years Used Date Smoking Tobacco: Never Smokeless Tobacco: Never Alcohol Use Standard Drinks/Week Comments No 0 (1 standard drink = 0.6 oz pur e alcohol) Comments Unknown Sex and Gender Information Value Date Recorded Sex Assigned at Not on file Legal Sex Female 4:59 PM EST Gender Identity Not on file Sexual Orientation Not on file Last Filed Vital Signs Vital Sign Reading Time Taken Comments Blood Pressure 108/62 09/16/2021 2:42 PM EST Pulse 83 09/16/2021 2:42 PM EST Temperature - - Respiratory Rate - - Oxygen Saturation 98% 09/16/2021 2:42 PM EST Inhaled Oxygen Concentration - - Weight 56.1 kg (123 lb 9.6 oz) 09/16/2021 2:42 P M EST Height 144.8 cm (4' 9 ) 06/09/2019 12:00 PM EST Body Mass Index 26.75 06/09/2019 12:00 PM EST Plan of Treatment Health Maintenance Due Date Last Done Comments Breast Cancer Screening 1955 Colorectal Cancer Screening: Annual FOBT 2005 Colorectal Cancer Screening: Colonoscopy 2005 Colorectal Cancer Screening: Sigmoidoscopy 2005 Pneumococcal Vaccine: 65+ Years (2 of 2 - PCV) 02/16/2010 02/16/2009 Diabetes: Ophthalmology Exam 09/02/2020 Diabetes: Pedal Pulse Checked 09/02/2020 Diabetes: Sensory Foot Exam 09/02/2020 Diabetes: Visual Foot Exam 09/02/2020 Influenza Vaccine (#1) 2024 0, 05/28/2017 Diabetes: Hemoglobin A1C 09/21/2024 06/21/2024 Hepatitis B Vaccine Aged Out No longe r eligible based on patient's age to complete this topic Insurance [facility] ([id number]) [facility] ([id number]) Care Teams Grain Roaster Relationship Specialty Start Date End Date Catherine Cuellar MD PCP - General 08/13/20
--- OUTSIDE RECORDS SUMMARY | 2024-08-26 12:31 | XMS_ITS | Encounter Summary ---
Author Organization [employer] [facility] Address [address] [place] [address] [address] [place] [address] Care Team Providers Care Workplace Rehabilitation Officer Name Role Phone Unavailable Primary Care Provider Unavailabl e Encounter Details Date Type Department Care Team (Latest Contact Info) Description 12/01/2018 Abstract [facility] CONVERSIONS Dental, Provider, DDS Social History Tobacco Use Types Packs/Day Years Used Date Smoking Tobacco: Never Assessed Comments Unknown Sex and Gender Information Value Date Recorded Sex Assigned at Female 06/02/2022 10:16 AM EDT Legal Sex Female 10:16 AM EDT Gender Identity Female 06/02/2022 10:16 AM EDT Sexual Orientation Straight 06/02/2022 10 :16 AM EDT documented as of this encounter Plan of Treatment Not on file documented as of this encounter Visit Diagnoses Not on filedocumented in this encounter
--- OUTSIDE RECORDS SUMMARY | 2024-08-26 12:31 | XMS_ITS | Encounter Summary ---
Author Organization [facility] Address [address] [place] [address] Phone Care Team Providers Care Electrical Instrument Repairer Name Role Phone Catherine Cuellar MD Primary Care Provider [phone]- [phone] Reason for Visit * Reason Comments Med Refill Encounter Details Date Type Department Care Team (Late st Contact Info) Description 05/08/2022 Refill [facility] [address] [place] [address] Talib Larkin MD Social History Tobacco Use Types Packs/Day Years Used Date Smoking Tobacco: Never Smokeless Tobacco: Never Alcohol Use Standard Drinks/Week Comments No 0 (1 standard drink = 0.6 oz pur e alcohol) Comments Unknown Sex and Gender Information Value Date Recorded Sex Assigned at Not on file Legal Sex Female 4:59 PM EST Gender Identity Not on file Sexual Orientation Not on file documented as of this encounter Plan of Treatment Not on file documented as of this encounter Visit Diagnoses Not on filedocumented in this encounter Care Teams Electrical Instrument Repairer Relationship Specialty Start Date End Date Catherine Cuellar MD PCP - General 08/13/20 documented as of this encounter
--- OUTSIDE RECORDS SUMMARY | 2024-08-26 12:31 | XMS_ITS | Clinical Summary ---
Author Organization [facility] Address [address] [place] [address] Care Team Providers Care Academic Specialist Name Role Phone Cordelia Moraes PA-C Primary Care Provider [phone] Source Comments PLEASE NOTE, if this patient is a minor, it may be UNLAWFUL to discuss sensitive information that is contained in these records (such as FAMILY PLANNING, MENTAL HEALTH or SUBSTANCE ABUSE) with the minor patient's parent or other person without the patient's specific authorization.[facility] Allergies Active Allergy Reactions Criticality Noted Date Comments Codeine Hives High 12/30/2022 Hydrocodone-Acetaminophen Hives High 12/30/2022 Lisinopril Hives High 12/30/2022 Metoclopramide Hives High 12/30/2022 Naproxen Hives High 12/30/2022 Oxycodone-Acetaminophen Hives High 12/30/2022 Pollen Extracts Hives High 12/30/2022 Tramadol Hives High 12/30/2022 Medications acetaminophen (TYLENOL) 500 mg tablet Take 1 Tablet by mouth every 6 (six) hours as needed 022 Active atorvastatin (LIPITOR) 40 mg tablet Take 1 Tablet by mouth nightly at bedtime (Prescribed by [facility]) 024 Active alcohol swabsIndications :Type 2 diabetes mellitus with stage 3a chronic kidney disease, with long-term current use of insulin ([facility]) Use to test blood glucose three times daily. 100 Each 11 024 Active silver sulfADIAZINE (SILVADENE) 1 % cream [facility]/pharmacy #[id number] - [place], [place] [phone] 50 g Refills RemaininDays Supply: 30Sig: APPLY TOPICALLY TO NAIL BED DAILYSource: Surescripts (Fill History, Ambulatory)Autho rized by: JESSICA KAYE Active omeprazole (PRILOSEC) [address] capsule TOME MONA CAPSULA TODOS LOS [place] EN LA MANANA ANTES DEL DESAYUNO 90 Capsule 1 Active multivitamin with folic acid (DAILY-MOSES, WITH FOLIC ACID,) 400 mcg tabIndications:C hronic kidney disease, stage 3b ([facility]) TOME 1 TABLETA POR VIA ORAL TODOS [place] 90 Tablet 1 Active triamcinolone (KENALOG) 0.5 % cream APPLY TO AFFECTED AREA TWICE DAILY FOR 2 WEEKS. THEN ON AND OFF NEEDED FOR FLARES. 15 g 1 Active LANTUS SOLOSTAR U-100 INSULIN 100 unit/mL (3 mL) penIndications:T ype 2 diabetes mellitus with stage 3b chronic kidney disease, with long-term current use of insulin ([facility]) INJECT 10 UNITS SUBCUTANEOUSLY DAILY 15 Pen 1 Active metoprolol succinate XL (TOPROL-XL) 100 mg 24 hr tabletIndication s:Heart failure with reduced ejection fraction, NYHA class III ([facility]) Take 1 Tablet by mouth once daily (Prescribed by [facility]) Active ENTRESTO 24-26 mg tabIndications:H eart failure with reduced ejection fraction, NYHA class III ([facility]) Take 1 Tablet by mouth 2 (two) times daily (Prescribed by [facility]) Active spironolactone (ALDACTONE) 25 mg tabletIndication s:Heart failure with reduced ejection fraction, NYHA class III ([facility]) Take 1 Tablet by mouth once daily (Prescribed by [facility]) Active TRADJENTA 5 mg tabIndications:T ype 2 diabetes mellitus with stage 3a chronic kidney disease, with long-term current use of insulin ([facility]) Take 1 Tablet by mouth every morning For diabetes 90 Tablet 1 Active blood-glucose meter,continuous (FREESTYLE CLIF 3 READER) miscIndications: Type 2 diabetes mellitus with stage 3a chronic kidney disease, with long-term current use of insulin ([facility]) Use to test blood glucose continuously. (Freestyle Clif 3 reader) 1 Each 024 Active empagliflozin (JARDIANCE) 10 mg tabIndications:T ype 2 diabetes mellitus with stage 3a chronic kidney disease, with long-term current use of insulin ([facility]),Heart failure with reduced ejection fraction, NYHA class III ([facility]) Take 1 Tablet by mouth every morning stop Tradjenta 5 mg 90 Tablet 1 024 Active gabapentin (NEURONTIN) 600 mg tabletIndication s:Fibromyalgia TOME MONA TABLETA ALISTAIR VECES AL ANANTH 270 Tablet 024 Active furosemide (LASIX) 40 mg tabletIndication s:Heart failure with reduced ejection fraction, NYHA class III ([facility]) Take 1 Tablet by mouth 2 (two) times daily 180 Tablet 1 024 Active allopurinoL (ZYLOPRIM) 100 mg tabletIndication s:Idiopathic gout, unspecified chronicity, unspecified site TOME 1 TABLETA POR VIA ORAL TODOS [place] 90 Tablet 024 Active blood-glucose sensor (FREESTYLE CLIF 3 PLUS SENSOR) deviIndications: Type 2 diabetes mellitus with stage 3a chronic kidney disease, with long-term current use of insulin ([facility]) Place 1 sensor to back of upper arm every 15 days. Use to monitor blood sugar continuously (Freestyle Clif 3 Plus) 2 Each 024 Active BD LISA 2ND GEN PEN NEEDLE 32 gauge x 5/32 ndleIndications: Type 2 diabetes mellitus with stage 3b chronic kidney disease, with long-term current use of insulin ([facility]) 1 to 3 (one to three) times daily Use to inject insulin as per order 100 Each 024 Active aspirin [address] tablet TOME MONA TABLETA TODOS LOS D 90 Tablet 2 024 Active methocarbamoL (ROBAXIN) 750 mg tabletIndication s:Fibromyalgia TAKE 1 TABLET BY MOUTH 2 TIMES DAILY NEEDED FOR OTHER (SPASM). 90 Tablet 024 Active lancets (FREESTYLE LANCETS) 28 gaugeIndications :Type 2 diabetes mellitus with stage 3a chronic kidney disease, with long-term current use of insulin ([facility]) Use to test blood glucose three times daily. (Freestyle Lancets) 100 Each 11 024 Active blood sugar diagnostic stripsIndication s:Type 2 diabetes mellitus with stage 3a chronic kidney disease, with long-term current use of insulin ([facility]) Use to test blood glucose three times daily. (Freestyle Lite) 100 Each 11 024 Active loratadine (CLARITIN) 10 mg tablet TOME 1 TABLETA POR VIA ORAL TODOS [place] CUANDO SEA NECESARIO FOR ALLERGIES 90 Tablet 024 Active azithromycin (ZITHROMAX) 250 mg tabletIndication s:Acute suppurative otitis media of right ear without spontaneous rupture of tympanic membrane, recurrence not specified Take 2 tab PO today then take 1 tab PO QD x4d 6 Tablet 024 Active fluticasone (FLONASE) 50 mcg/actuation nasal spray Place 1 Loyal in both nostrils once daily NEEDED FOR RHINITIS OR ALLERGIES!! 16 g 2 024 Active cholecalciferol (VITAMIN D-3) 50 mcg (2,000 unit) capsule TOME 1 CAPSULA POR VIA ORAL TODOS [place] 90 Capsule 1 025 Active apixaban (ELIQUIS) 5 mg tabIndications:D ilated cardiomyopathy (HCC-CMS),Implan table cardioverter-def ibrillator (ICD) in situ Take 1 Tablet by mouth 2 (two) times Daily 180 Tablet 1 025 Active zolpidem (AMBIEN) 5 mg tabletIndication s:Insomnia, unspecified type Take 1 Tablet by mouth nightly at bedtime NEEDED FOR SLEEP!! 30 Tablet 5 025 Active cholecalciferol (VITAMIN D-3) 50 mcg (2,000 unit) capsule TOME 1 CAPSULA POR VIA ORAL TODOS [place] 90 Capsule 024 2024 Discontinued ELIQUIS 5 mg tabIndications:D ilated cardiomyopathy (HCC-CMS),Implan table cardioverter-def ibrillator (ICD) in situ TOME MONA TABLETA DOS VECES AL ANANTH 180 Tablet 1 024 2024 Discontinued(R eorder (E-Cancel Not Sent)) zolpidem (AMBIEN) 5 mg tabletIndication s:Insomnia, unspecified type TAKE 1 TAB BY MOUTH NIGHTLY AT BEDTIME NEEDED FOR SLEEP 30 Tablet 024 2024 Discontinued(R eorder (E-Cancel Not Sent)) Active Problems Problem Noted Date Diagnosed Date Degenerative tear of medial meniscus of right kn ee 10/11/2023 History of appendectomy 12/30/2022 12/31/19 Hx of cholecystectomy 12/30/2022 12/30/2022 Cardiac pacemaker 12/30/2022 12/30/2022 Overview (06/21/2024): 06/14/24 at [facility] Plan ~Labs today ~Refer back to EP for PVC burden of 30%, frequent runs of ventricular couplets and nonsustained VT, variable LBBB ~Per Dr. Vazquez: Patient has a non-MRI conditional single chamber ICD, is not pacemaker-dependent and does not have any abandoned leads. They will be able to obtain an MRI after appropriate pre-MRI settings are programmed into the device by the EP lab staff --Device clinic messaged for pt's arm MRI 05/12/24 at [facility] Plan ~24-Holter monitor to assess PVC burden 04/08/24 at [facility] Plan ~Reduce Lasix to 20 mg as needed weight gain greater than 3 pounds / 1-2 days, increased leg swelling, increased shortness of breath ~Stop carvedilol 12.5 mg twice daily and start metoprolol XL 100 mg daily ~Pt encouraged to hydrate in the range of 8 glasses fluid daily ~Repeat Sleep study in-lab ~Message to Device to assess PVC burden 03/04/24 at [facility] Plan: - increase entresto to 97-103mg BID - pt will monitor wt at home and repeat labs in a week, if wt has not improved would double lasix dose for 3-4 days - f/u in 1 months - would repeat ekg and if QRS wide with LBBB pattern ask EP if we need to upgrade to REPORTS ANALYST given low EF and recent admission with decrease in GDMT 08/25/23 at [facility] Shared Clinical Summary 1. Heart failure with reduced ejection fraction, EF 30 to 35%, nonischemic etiology 2. Hypertension 3. Hyperlipidemia 4. Type 2 diabetes 5. Status post ICD for primary prevention 6. Intermittent gout Cardiovascular History 07/2007 - ETTMibi - 8:15 min, 67% MPHR, 8.5 METs, EF 52% normal perfusion 04/08/09 - Admit ADHF 04/10/09 - Echo - LVEDD 52, LAD 41, EF 25-30%, diffuse HK, moderate MR, normal RV, PASP normal. 04/11/09 - Cath - no CAD. February 2012 - ECHO; The left ventricle is mildly dilated. Left ventricular wall thickness is normal. The LV systolic function is severely reduced .The left ventricular ejection fraction is 10-15 %. There is severe global hypokinesis of the left ventricle. Unable to assess diastolic function . There is mild apical tethering of the both leaflets of the mitral valve. There is mild to moderate mitral regurgitation. The right ventricle is normal in size and function. Aug 2012 - ICD placement by Dr Dockery 11/15 Echo: LV mildly dilated, LV wall thickness normal. Severely reduced LVEF 15-20%. Global hypokinesis with regional wall variations. Apical teathering of mitral leaflets-mild MR. RV nl size/function. PASP wnl. Trace pulmonic regurg. CPET 2015: max VO2 37% of predicted 04/19: LVEF 40% 04/21: LVEF 30-35% 03/24: LVEF 20-25% - cMRI could not be completed due to position of the battery of the AICD. - Stopped Dapa because she had a sukhjinder infection 2 weeks after starting. Interim: - no labs - Knee surgery november 04 - Admitted in June for persistent cough. She also had cough in july but she did not go to the hospital. Dry, worse at night. Denies CP, orthopnea, PND, dizziness. - compliant with meds Assessment/Plan Orders: B Type Natriuretic Peptide Basic Metabolic Panel Digoxin Level 1. Heart failure EF 20-25% by echo, NYHA class III, euvolemic. Etiology nonischemic for prior work-up. Unable to do MRI because of AICD battery position. Patient has a single lead AICD for primary prevention--> 3 NSVT on last interrogation No admissions for HF - labs pending - stop dig (on GDMT and has NSVT) - c/w GDMT (coreg, etresto, charlette), consider dapa next visit - c/w lasix for now - ordered in lab sleep study given home nondiagnostic - f/u in 6 months Chronic abdominal pain 12/30/2022 Chronic depression 12/30/2022 12/30/2022 Heart failure with reduced e jection fraction, NYHA class III ([facility]) 12/30/2022 12/30/2022 Overview (06/21/2024): 06/14/24 at [facility] Plan ~Labs today ~Refer back to EP for PVC burden of 30%, frequent runs of ventricular couplets and nonsustained VT, variable LBBB ~Per Dr. Vazquez: Patient has a non-MRI conditional single chamber ICD, is not pacemaker-dependent and does not have any abandoned leads. They will be able to obtain an MRI after appropriate pre-MRI settings are programmed into the device by the EP lab staff --Device clinic messaged for pt's arm MRI 05/12/24 at [facility] Plan ~24-Holter monitor to assess PVC burden 04/08/24 at [facility] Plan ~Reduce Lasix to 20 mg as needed weight gain greater than 3 pounds / 1-2 days, increased leg swelling, increased shortness of breath ~Stop carvedilol 12.5 mg twice daily and start metoprolol XL 100 mg daily ~Pt encouraged to hydrate in the range of 8 glasses fluid daily ~Repeat Sleep study in-lab ~Message to Device to assess PVC burden 03/04/24 at [facility] Plan: - increase entresto to 97-103mg BID - pt will monitor wt at home and repeat labs in a week, if wt has not improved would double lasix dose for 3-4 days - f/u in 1 months - would repeat ekg and if QRS wide with LBBB pattern ask EP if we need to upgrade to REPORTS ANALYST given low EF and recent admission with decrease in GDMT 08/25/23 at [facility] Shared Clinical Summary 1. Heart failure with reduced ejection fraction, EF 30 to 35%, nonischemic etiology 2. Hypertension 3. Hyperlipidemia 4. Type 2 diabetes 5. Status post ICD for primary prevention 6. Intermittent gout Cardiovascular History 07/2007 - ETTMibi - 8:15 min, 67% MPHR, 8.5 METs, EF 52% normal perfusion 04/08/09 - Admit ADHF 04/10/09 - Echo - LVEDD 52, LAD 41, EF 25-30%, diffuse HK, moderate MR, normal RV, PASP normal. 04/11/09 - Cath - no CAD. February 2012 - ECHO; The left ventricle is mildly dilated. Left ventricular wall thickness is normal. The LV systolic function is severely reduced .The left ventricular ejection fraction is 10-15 %. There is severe global hypokinesis of the left ventricle. Unable to assess diastolic function . There is mild apical tethering of the both leaflets of the mitral valve. There is mild to moderate mitral regurgitation. The right ventricle is normal in size and function. Aug 2012 - ICD placement by Dr Dockery 11/15 Echo: LV mildly dilated, LV wall thickness normal. Severely reduced LVEF 15-20%. Global hypokinesis with regional wall variations. Apical teathering of mitral leaflets-mild MR. RV nl size/function. PASP wnl. Trace pulmonic regurg. CPET 2015: max VO2 37% of predicted 04/19: LVEF 40% 04/21: LVEF 30-35% 03/24: LVEF 20-25% - cMRI could not be completed due to position of the battery of the AICD. - Stopped Dapa because she had a sukhjinder infection 2 weeks after starting. Interim: - no labs - Knee surgery november 04 - Admitted in June for persistent cough. She also had cough in july but she did not go to the hospital. Dry, worse at night. Denies CP, orthopnea, PND, dizziness. - compliant with meds Assessment/Plan Orders: B Type Natriuretic Peptide Basic Metabolic Panel Digoxin Level 1. Heart failure EF 20-25% by echo, NYHA class III, euvolemic. Etiology nonischemic for prior work-up. Unable to do MRI because of AICD battery position. Patient has a single lead AICD for primary prevention--> 3 NSVT on last interrogation No admissions for HF - labs pending - stop dig (on GDMT and has NSVT) - c/w GDMT (coreg, etresto, charlette), consider dapa next visit - c/w lasix for now - ordered in lab sleep study given home nondiagnostic - f/u in 6 months Migraine 12/30/2022 12/30/2022 Mild vaginal dysplasia 12/30/2022 3 Obesity 12/30/2022 12/30/2022 Polyp of colon 12/30/2022 12/30/2022 Overview (12/30/2022): 02/14 History of lobectomy of thyroid 12/30/2022 Overview (12/30/2022): Post op right lobectomy DOS 11/10/22 at [facility]. Anemia of chronic renal failure 11/30/2020 12/30/2022 Dilated cardiomyopathy (HCC-CMS) 11/30/2020 12/30/2022 Overview (06/21/2024): 06/14/24 at [facility] Plan ~Labs today ~Refer back to EP for PVC burden of 30%, frequent runs of ventricular couplets and nonsustained VT, variable LBBB ~Per Dr. Vazquez: Patient has a non-MRI conditional single chamber ICD, is not pacemaker-dependent and does not have any abandoned leads. They will be able to obtain an MRI after appropriate pre-MRI settings are programmed into the device by the EP lab staff --Device clinic messaged for pt's arm MRI 05/12/24 at [facility] Plan ~24-Holter monitor to assess PVC burden 04/08/24 at [facility] Plan ~Reduce Lasix to 20 mg as needed weight gain greater than 3 pounds / 1-2 days, increased leg swelling, increased shortness of breath ~Stop carvedilol 12.5 mg twice daily and start metoprolol XL 100 mg daily ~Pt encouraged to hydrate in the range of 8 glasses fluid daily ~Repeat Sleep study in-lab ~Message to Device to assess PVC burden 03/04/24 at [facility] Plan: - increase entresto to 97-103mg BID - pt will monitor wt at home and repeat labs in a week, if wt has not improved would double lasix dose for 3-4 days - f/u in 1 months - would repeat ekg and if QRS wide with LBBB pattern ask EP if we need to upgrade to REPORTS ANALYST given low EF and recent admission with decrease in GDMT 08/25/23 at [facility] Shared Clinical Summary 1. Heart failure with reduced ejection fraction, EF 30 to 35%, nonischemic etiology 2. Hypertension 3. Hyperlipidemia 4. Type 2 diabetes 5. Status post ICD for primary prevention 6. Intermittent gout Cardiovascular History 07/2007 - ETTMibi - 8:15 min, 67% MPHR, 8.5 METs, EF 52% normal perfusion 04/08/09 - Admit ADHF 04/10/09 - Echo - LVEDD 52, LAD 41, EF 25-30%, diffuse HK, moderate MR, normal RV, PASP normal. 04/11/09 - Cath - no CAD. February 2012 - ECHO; The left ventricle is mildly dilated. Left ventricular wall thickness is normal. The LV systolic function is severely reduced .The left ventricular ejection fraction is 10-15 %. There is severe global hypokinesis of the left ventricle. Unable to assess diastolic function . There is mild apical tethering of the both leaflets of the mitral valve. There is mild to moderate mitral regurgitation. The right ventricle is normal in size and function. Aug 2012 - ICD placement by Dr Dockery 11/15 Echo: LV mildly dilated, LV wall thickness normal. Severely reduced LVEF 15-20%. Global hypokinesis with regional wall variations. Apical teathering of mitral leaflets-mild MR. RV nl size/function. PASP wnl. Trace pulmonic regurg. CPET 2015: max VO2 37% of predicted 04/19: LVEF 40% 04/21: LVEF 30-35% 03/24: LVEF 20-25% - cMRI could not be completed due to position of the battery of the AICD. - Stopped Dapa because she had a sukhjinder infection 2 weeks after starting. Interim: - no labs - Knee surgery november 04 - Admitted in June for persistent cough. She also had cough in july but she did not go to the hospital. Dry, worse at night. Denies CP, orthopnea, PND, dizziness. - compliant with meds Assessment/Plan Orders: B Type Natriuretic Peptide Basic Metabolic Panel Digoxin Level 1. Heart failure EF 20-25% by echo, NYHA class III, euvolemic. Etiology nonischemic for prior work-up. Unable to do MRI because of AICD battery position. Patient has a single lead AICD for primary prevention--> 3 NSVT on last interrogation No admissions for HF - labs pending - stop dig (on GDMT and has NSVT) - c/w GDMT (coreg, etresto, charlette), consider dapa next visit - c/w lasix for now - ordered in lab sleep study given home nondiagnostic - f/u in 6 months Ectopic kidney 11/30/2020 12/30/2022 Gastroesophageal reflux disease 11/30/2020 12/30/2022 Essential hypertension 11/30/2020 Hypercholesterolemia 11/30/2020 12/30/2022 Stage 3 chronic kidney disea se due to type 2 diabetes mellitus ([facility]) 08/17/2018 12/30/2022 Overview (06/21/2024): 04/25/24 at [facility] - Dr. Omayra Chapin Echocardiogram showed severely dilated left ventricle with severe global hypokinesis Renal function back to baseline. Serum creatinine 1.28. LALO has resolved, continue current dose of diuretics Continue current medications including SGLT-2 inhibitors and no changes made. Maintain A1c <7%, avoid nephrotoxic agents including NSAIDs. Cr 2.0 on 07/29/18 - outside labs by Endo. Referred by Endo to Dr Cornel Cutler ([facility]). Latest Cr 06/06/19 1.14, Hgb 10.3 Constipation 01/21/2018 12/30/2022 Eczema 01/21/2018 12/30/2022 Gout 01/21/2018 12/30/2022 Overview (12/30/2022): 2017 Left toe 2018 Left toe Implantable cardioverter-defibrillator (ICD) in situ 01/21/2018 12/30/2022 Overview (10/30/2023): [facility] - 08/25/23 Cardiology Shared Clinical Summary 1. Heart failure with reduced ejection fraction, EF 30 to 35%, nonischemic etiology 2. Hypertension 3. Hyperlipidemia 4. Type 2 diabetes 5. Status post ICD for primary prevention 6. Intermittent gout Provider Clinical Summary Cardiovascular History 07/2007 - ETTMibi - 8:15 min, 67% MPHR, 8.5 METs, EF 52% normal perfusion 04/08/09 - Admit ADHF 04/10/09 - Echo - LVEDD 52, LAD 41, EF 25-30%, diffuse HK, moderate MR, normal RV, PASP normal. 04/11/09 - Cath - no CAD. February 2012 - ECHO; The left ventricle is mildly dilated. Left ventricular wall thickness is normal. The LV systolic function is severely reduced .The left ventricular ejection fraction is 10-15 %. There is severe global hypokinesis of the left ventricle. Unable to assess diastolic function . There is mild apical tethering of the both leaflets of the mitral valve. There is mild to moderate mitral regurgitation. The right ventricle is normal in size and function. Aug 2012 - ICD placement by Dr Dockery 11/15 Echo: LV mildly dilated, LV wall thickness normal. Severely reduced LVEF 15-20%. Global hypokinesis with regional wall variations. Apical teathering of mitral leaflets-mild MR. RV nl size/function. PASP wnl. Trace pulmonic regurg. CPET 2015: max VO2 37% of predicted 04/19: LVEF 40% 04/21: LVEF 30-35% 03/24: LVEF 20-25% History of Present Illness/Interval History 68-year-old female with past medical history of obesity, hypertension, hyperlipidemia, diabetes, gout, fibromyalgia, afib, heart failure with reduced ejection fraction who used to follow with the heart failure clinic until 2018, at that time she had reduced exercise tolerance by CPET but EF had recovered to 40% on GDMT, after that she did not have an echocardiogram until March 2022 where she was found to have severely reduced ejection fraction estimated at 20-25% who presents for follow up. Cardiovascular History 07/2007 - ETTMibi - 8:15 min, 67% MPHR, 8.5 METs, EF 52% normal perfusion 04/08/09 - Admit ADHF 04/10/09 - Echo - LVEDD 52, LAD 41, EF 25-30%, diffuse HK, moderate MR, normal RV, PASP normal. 04/11/09 - Cath - no CAD. February 2012 - ECHO; The left ventricle is mildly dilated. Left ventricular wall thickness is normal. The LV systolic function is severely reduced .The left ventricular ejection fraction is 10-15 %. There is severe global hypokinesis of the left ventricle. Unable to assess diastolic function . There is mild apical tethering of the both leaflets of the mitral valve. There is mild to moderate mitral regurgitation. The right ventricle is normal in size and function. Aug 2012 - ICD placement by Dr Dockery 11/15 Echo: LV mildly dilated, LV wall thickness normal. Severely reduced LVEF 15-20%. Global hypokinesis with regional wall variations. Apical teathering of mitral leaflets-mild MR. RV nl size/function. PASP wnl. Trace pulmonic regurg. CPET 2015: max VO2 37% of predicted 04/19: LVEF 40% 04/21: LVEF 30-35% 03/24: LVEF 20-25% - cMRI could not be completed due to position of the battery of the AICD. - Stopped Dapa because she had a sukhjinder infection 2 weeks after starting. Interim: - no labs - Knee surgery november 04 - Admitted in June for persistent cough. She also had cough in july but she did not go to the hospital. Dry, worse at night. Denies CP, orthopnea, PND, dizziness. - compliant with meds Assessment/Plan Orders: B Type Natriuretic Peptide Basic Metabolic Panel Digoxin Level 1. Heart failure EF 20-25% by echo, NYHA class III, euvolemic. Etiology nonischemic for prior work-up. Unable to do MRI because of AICD battery position. Patient has a single lead AICD for primary prevention--> 3 NSVT on last interrogation No admissions for HF - labs pending - stop dig (on GDMT and has NSVT) - c/w GDMT (coreg, etresto, charlette), consider dapa next visit - c/w lasix for now - ordered in lab sleep study given home nondiagnostic - f/u in 6 months Insomnia 01/21/2018 12/30/2022 Memory impairment 05/24/2010 12/30/2022 Type 2 diabetes mellitus wit h stage 3a chronic kidney disease, with long-term current use of insulin ([facility]) 08/03/2007 12/30/2022 Overview (06/22/2024): DM dx: ~[phone] per patient reports Glucometer: StoneRiverstyle Clif 3 Plus Current Diabetes RX: Lantus Solostar - inject 8 units daily at bedtime Jardiance 10 mg daily every morning (CKD/HF) MARCO-I/ARB: Entresto 24/26 mg twice daily (prescribed by [facility]) Statin: Atorvastatin 40 mg daily at bedtime (prescribed by [facility]) Pneumococcal vaccine: PPSV23 (02/16/09) Diabetes foot exam: 02/26/23, podiatry referral sent on 10/09/23 by PCP Diabetes retinal exam: 02/09/24 at [facility] No retinopathy Meibomian Gland Dysfunction OU. Hot compresses for 10 minutes 4 times daily. Monitor. Pterygium OS. Mildly inflammed pterygium, consider Lotemax if irritation worsens. Resolved Problems Problem Noted Date Diagnosed Date Resolved Date Chronic systolic heart failure ([facility]) 11/30/2020 12/30/2022 10/28/2023 Overview (12/30/2022): Dr. Jens Rosas, [facility] cardiology Dr. Jens Rosas, [facility] cardiology Diabetic nephropathy associa tanisha with type 2 diabetes mellitus ([facility]) 11/30/2020 12/30/2022 10/28/2023 Encounters Date Type Department Care Team Description 07/18/2024 11:20 AM EST Office Visit [address] [address] Child, ClarenceUMAIR, Иван Acute suppurative otitis media of right ear without spontaneous rupture of tympanic membrane, recurrence not specified (Primary Dx); Non-Palestinian speaking patient 07/18/2024 Travel 06/21/2024 1:40 PM EST Office Visit [address] [address] Reza Britt, Patsy Type 2 diabetes mellitus with stage 3a chronic kidney disease, with long-term current use of insulin ([facility]) (Primary Dx); Heart failure with reduced ejection fraction, NYHA class III ([facility]); Dilated cardiomyopathy ([facility]); Cardiac pacemaker; Stage 3 chronic kidney disease due to type 2 diabetes mellitus ([facility]) 06/21/2024 Travel 06/08/2024 Interim Notes [address] [address] [place]yenne Saucedo [place] 05/30/2024 9:00 AM EDT Telemedicine Visit [facility] Main [address] [address] Cordelia Moraes PA-C Right wrist pain (Primary Dx) 05/30/2024 Travel from Last 3 Months Immunizations Name Administration Dates Next Due Flu, Preservative Free 10/17/2019 INFLUENZA, SEASONAL, INJECTABLE 05/28/20 17,06/07/2015,04/21/2013,06/07 PNEUMOCOCCAL POLYSACCHARIDE PPV23 02/16/2009 TDAP 02/16/2009 Td(adult),2 Lf tetanus toxoid,preservative free 02/26/2023 ZOSTER VACCINE, RECOMBINANT (SHINGRIX) 3 Family History Medical History Relation Name Comments Alcohol abuse Father Kidney disease Mother Relation Name Status Comments Father Mother Social History Tobacco Use Types Packs/Day Years Used Date Smoking Tobacco: Never Smokeless Tobacco: Never Tobacco Cessation:Counseling Given: Not Answered Alcohol Use Standard Drinks/Week Comments Never 0 (1 standard drink = 0.6 oz pur e alcohol) Social Connections Answer Date Recorded Connectedness 1 10/09/2023 Financial Resource Strain Answer Date R ecorded Financial Resource Strain 1 2023 Stress Answer Date Recorded Stress 1 10/09/2023 Physical Activity Answer Date Recorded Physical Activity 0 12/23/2022 Food Insecurity Answer Date Recorded Food 1 10/09/2023 Transportation Needs Answer Date Record ed Transportation 1 10/09/2023 Housing Stability Answer Date Recorded Housing 1 10/09/2023 Safety and Environment Answer Date Nicola rded Safety 0 12/23/2022 Utilities Answer Date Recorded Utilities 1 10/09/2023 Employment Answer Date Recorded Stress 0 09/18/2023 Comments No Sex and Gender Information Value Date Recorded Sex Assigned at Female 12/30/2022 6:55 AM PDT Legal Sex Female 11:51 AM PST Gender Identity Female 12/30/2022 6:55 AM PDT Sexual Orientation Don't know 12/30/2022 6: 55 AM PDT Last Filed Vital Signs Vital Sign Reading Time Taken Comments Blood Pressure 96/60 07/18/2024 11:22 AM EST Pulse 78 07/18/2024 11:22 AM EST Temperature 37.2 ??C (98.9 ??F) 07/18/2024 11:[address] Respiratory Rate 14 07/18/2024 11:22 AM EST Oxygen Saturation 97% 06/21/2024 1:39 PM EST Inhaled Oxygen Concentration - - Weight 58.1 kg (128 lb) 07/18/2024 11:22 AM EST Height 149.9 cm (4' 11 ) 06/21/2024 1:39 PM EST Body Mass Index 25.85 06/21/2024 1:39 PM EST Plan of Treatment Upcoming Encounters Date Type Department Care Team (Late st Contact Info) Description 09/01/2024 1:40 PM EST Office Visit [address] [address] Reza Britt, PharmD [address] [place] [address] 09/30/2024 1:40 PM EST Office Visit [address] [address] Cordelia Moraes PA-C [address] [place] [address] Health Maintenance Due Date Last Done Comments Dental Examination [address] CT Colonography 2001 FIT/gFOBT 2001 Fecal DNA 2001 Flexible Sigmoidoscopy 2001 Imm-Pneumococcal 65+ (2 of 2 - PCV) 02/16/2010 02/16/2009 Bone Density Screening 2021 Imm-Zoster, Recombinant (2 of 2) 04/23/2023 02/26/2023 Diabetes Foot Exam 02/27/2024 02/26/2023 Diabetes Microalbumin (w/Creatinine) 02/27/2024 02/26/2023 Depression Monitoring 06/14/2024 03/14/2024 , 10/09/2023, 12/30/2022 Alcohol and Drug Screen 08/03/2024 10/09/19 24, 02/26/2023, 12/30/2022 Lipid Screening 10/27/2024 10/28/2023, 12/30/2022 [id number] ( season) 2024 10/29/2020, 09/30/2020 Postponed from 04/03/2024 (Patient postponement) Diabetes HbA1c 12/19/2024 06/21/2024, 03/02/2024, 12/30/2022 Imm-Influenza (#1) 2025 10/17/2019, 1 , 06/07/2015, Additional history exists Postponed from 04/03/2024 (Patient postponement) Retinopathy Screening 02/08/2025 02/09/2024 Medicare Annual Wellness Visit 03/30/2025 03/30/2024, 02/26/2023 Tobacco Screening 05/09/2025 05/09/2024, 10/28/2023 Falls Prevention 05/30/2025 05/30/2024, 02/26/2023 Serum Creatinine 06/21/2025 06/21/2024, , 02/26/2023, Additional history exists Breast Cancer Screening (Mammogram) 04/27/2026 04/27/2024 Colonoscopy 02/13/2032 02/12/2022 Colorectal Cancer Screening 02/13/2032 Imm-DTaP/Tdap/Td (3 - Td or Tdap) 02/26/2033 02/26/2023, 02/16/2009 Hepatitis C Screening Completed 12/30/2022 Procedures Procedure Name Priority Date/Time Associated Diagnosis Comments REFERRAL SCANNED DOCUMENT 06/27/2024 3:00 AM EST HGA1C W/EAG Routine 06/21/2024 2:31 PM EST Type 2 diabetes mellitus with stage 3b chronic kidney disease, with long-term current use of insulin ([facility]) COMPREHENSIVE METABOLIC PANEL Routine 06/21/2024 2:31 PM EST Type 2 diabetes mellitus with stage 3b chronic kidney disease, with long-term current use of insulin ([facility]) VITAMIN B12 & FOLATE Routine 06/21/2024 2:29 PM EST Type 2 diabetes mellitus with stage 3a chronic kidney disease, with long-term current use of insulin ([facility]) GLUCOSE, BLOOD BY GLUCOSE MONITORING DEVICE (CLIA WAIVED)POCT Routine 06/21/2024 1:47 PM EST Type 2 diabetes mellitus with stage 3a chronic kidney disease, with long-term current use of insulin ([facility]) MEDICATIONS SCANNED DOCUMENT 05/27/2024 3:00 AM EDT MEDICATIONS SCANNED DOCUMENT 05/27/2024 3:00 AM EDT REFERRAL FOR MAMMOGRAM Routine 3:00 AM EDT Screening mammogram, encounter for REFERRAL TO DIABETIC RETINAL EXAM Routine 02/09/2024 3:00 AM EDT Type 2 diabetes mellitus with stage 3a chronic kidney disease, with long-term current use of insulin ([facility]) LIPIDS W RFLX TO DIRECT LDL Routine 10/28/2023 10:18 AM EDT Preoperative clearance Type 2 diabetes mellitus with stage 3b chronic kidney disease, with long-term current use of insulin ([facility]) MICROALBUMIN/CREATININ E RATIO, URINE, RANDOM Routine 02/26/2023 2:03 PM EDT Type 2 diabetes mellitus with stage 3b chronic kidney disease, with long-term current use of insulin ([facility]) HEPATITIS C AB W/RFLX HCV RNA, QT, RT PCR Routine 12/30/2022 10:40 AM EDT Encounter to establish care from Last 3 Months or Most Recently Relevant to Health Maintenance Results * REFERRAL SCANNED DOCUMENT (06/27/2024 3:00 AM EST) 06/27/2024 3:00 AM EST [facility] Provider Default SCAN REFERRAL Final Resu lt * (ABNORMAL) HGA1C W/EAG (06/21/2024 2:31 PM EST) HEMOGLOBIN A1C 6.3(H) <5.7 % of total Hgb [facility] Comment: For someone without known diabetes, a hemoglobin A1c value between 5.7% and 6.4% is consistent with prediabetes and should be confirmed with a follow-up test. For someone with known diabetes, a value <7% indicates that their diabetes is well controlled. A1c targets should be individualized based on duration of diabetes, age, comorbid conditions, and other considerations. This assay result is consistent with an increased risk of diabetes. Currently, no consensus exists regarding use of hemoglobin A1c for diagnosis of diabetes for children. EAG (MG/DL) 134 mg/dL [facility] EAG (MMOL/L) 7.4 mmol/L [facility] Blood Blood / Unknown 06/21/2024 2 :31 PM EST 06/21/2024 2:32 PM EST Narrative [employer] [facility] - 06/22/2024 12:48 PM EST FASTING:NO Cordelia Moraes PA-C LAB - BLOOD DRAW Final Resul t [employer] [facility] [address] [address], [facility] [address] [place] [address] * (ABNORMAL) COMPREHENSIVE METABOLIC PANEL (06/21/2024 2:31 PM EST) [facility] GLUCOSE 101 65 - 139 mg/dL [facility] Comment: ?Non-fasting reference interval UREA NITROGEN (BUN) 24 7 - 25 mg/dL [facility] CREATININE (blood) 1.66(H) 0.50 - 1.05 mg/dL [facility] EGFR 33(L) > OR = 60 mL/min/1. 73m2 [facility] BUN/CREATININE RATIO 14 6 - 22 (calc) [facility] SODIUM 134(L) 135 - 146 mmol/L [facility] POTASSIUM 4.4 3.5 - 5.3 mmol/L [facility] CHLORIDE 94(L) 98 - 110 mmol/L [facility] CARBON DIOXIDE 28 20 - 32 mmol/L [facility] CALCIUM 9.6 8.6 - 10.4 mg/dL [facility] PROTEIN, TOTAL 7.6 6.1 - 8.1 g/dL [facility] ALBUMIN 4.3 3.6 - 5.1 g/dL [facility] GLOBULIN 3.3 1.9 - 3.7 g/dL (calc) [facility] ALBUMIN/GLOBULI N RATIO 1.3 1.0 - 2.5 (calc) [facility] BILIRUBIN, TOTAL 0.4 0.2 - 1.2 mg/dL [facility] ALKALINE PHOSPHATASE 79 37 - 153 U/L [facility] AST 14 10 - 35 U/L [facility] ALT 10 6 - 29 U/L [facility] Blood Blood / Unknown 06/21/2024 2 :31 PM EST 06/21/2024 2:32 PM EST Narrative [facility] - 06/22/2024 12:48 PM EST FASTING:NO us Cordelia Moraes PA-C LAB - BLOOD DRAW Edited Resu lt - Final [facility] [address] [address], [facility] [address] [place] [address] * VITAMIN B12 & FOLATE (06/21/2024 2:29 PM EST) VITAMIN B12 287 200 - 1,100 pg/mL [facility] Comment: Please Note: Although the reference range for vitamin B12 is 200-1100 pg/mL, it has been reported that between 5 and 10% of patients with values between 200 and 400 pg/mL may experience neuropsychiatric and hematologic abnormalities due to occult B12 deficiency; less than 1% of patients with values above 400 pg/mL will have symptoms. FOLATE, SERUM 8.9 5.5 ng/mL [facility] Comment: ? Reference Range ? Low: ? <3.4 ? Borderline: ?3.4-5.4 ? Normal: ?>5.4 Blood Blood / Unknown 06/21/2024 2 :29 PM EST 06/21/2024 2:30 PM EST Reza Britt PharmD LAB - BLOOD DRAW Edited R esult - Final Performing Organization Address City/[facility]/ZIP Co de Phone Number [facility] [address] [address], [facility] [address] [address] * (ABNORMAL) GLUCOSE, BLOOD BY GLUCOSE MONITORING DEVICE (CLIA WAIVED)POCT (06/21/2024 1:47 PM EST) GLUCOSE 139(A) 70 - 100 mg/dL [facility] POCT Capillary Blood Blood / Unknown 1:47 PM EST Reza Britt PharmD LAB - BLOOD DRAW Final Re sult [facility]- BACK OFFICE POCT * MEDICATIONS SCANNED DOCUMENT (05/27/2024 3:00 AM EDT) Only the most recent of2 resultswithin the time period is included. 05/27/2024 3:00 AM EDT Cordelia Moraes PA-C SCAN MEDS OTHER ORDERS Final Result * REFERRAL FOR MAMMOGRAM (04/27/2024 3:00 AM EDT) 04/27/2024 3:00 AM EDT Cordelia Moraes PA-C IMG RFL MAMMO Edited Resul t - Final * REFERRAL TO DIABETIC RETINAL EXAM (02/09/2024 3:00 AM EDT) 02/09/2024 3:00 AM EDT Reza Britt PharmD REFERRAL Edited Re sult - Final * (ABNORMAL) LIPIDS W RFLX TO DIRECT LDL (10/28/2023 10:18 AM EDT) CHOLESTEROL, TOTAL 131 <200 mg/dL [facility] HDL CHOLESTEROL 35(L) > OR = 50 mg/dL [facility] TRIGLYCERIDES 158(H) <150 mg/dL [facility] LDL-CHOLESTEROL 72 99 mg/dL (calc) [facility] Comment: Reference range: <100 Desirable range <100 mg/dL for primary prevention; ?? <70 mg/dL for patients with CHD or diabetic patients with > or = 2 CHD risk factors. LDL-C is now calculated using the Len-Yohana calculation, which is a validated novel method providing better accuracy than the Friedewald equation in the estimation of LDL-C. Len SS et al. JENNIFER. 2013;310(19): 4475-7201 (http://education.Greenmonster/faq/ATG844) CHOL/HDLC RATIO 3.7 <5.0 (calc) [facility] NON-HDL CHOLESTEROL 96 <130 mg/dL (calc) [facility] Comment: For patients with diabetes plus 1 major ASCVD risk factor, treating to a non-HDL-C goal of <100 mg/dL (LDL-C of <70 mg/dL) is considered a therapeutic option. Blood Blood / Unknown 10/28/2023 1 0:18 AM EDT 10/28/2023 10:18 AM EDT Narrative [facility] - 10/29/2023 9:14 AM EDT FASTING:YES us Cordelia Moraes PA-C LAB - BLOOD DRAW Final Resul t [employer] [address] [address], [facility] [address] [place] [address] * MICROALBUMIN/CREATININE RATIO, URINE, RANDOM (02/26/2023 2:03 PM EDT) CREATININE, RANDOM URINE 37 20 - 275 mg/dL [facility] MICROALBUMIN <0.2 mg/dL [facility] Comment: Reference Range Not established MICROALBUMIN/CREA TININE RATIO, RANDOM URINE NOTE <30 [facility] [employer] [facility] Comment: NOTE: The urine albumin value is less than 0.2 mg/dL therefore we are unable to calculate excretion and/or creatinine ratio. The ADA defines abnormalities in albumin excretion as follows: Albuminuria Category ?Result (mcg/mg creatinine) Normal to Mildly increased ?? <30 Moderately increased ? 30-299 Severely increased ? > OR = 300 The ADA recommends that at least two of three specimens collected within a 3-6 month period be abnormal before considering a patient to be within a diagnostic category. Urine Urine specimen / Unknown 02/26/2023 2:03 PM EDT 02/26/2023 2:04 PM EDT Richa Atkins MUSIC PASTOR LAB - NO BLOOD DRAW Final Result [facility] [address] [address], [facility] [address] [address] * HEPATITIS C AB W/RFLX HCV RNA, QT, RT PCR (12/30/2022 10:40 AM EDT) [facility] HEPATITIS C ANTIBODY NON-REACT OBI NON-REACT OBI [facility] SIGNAL TO CUT-OFF 0.11 <1.00 [facility] Comment: HCV antibody was non-reactive. There is no laboratory evidence of HCV infection. In most cases, no further action is required. However, if recent HCV exposure is suspected, a test for HCV RNA (test code 90232) is suggested. For additional information please refer to http://education.SimpliVity/faq/QUI18b0 (This link is being provided for informational/ educational purposes only.) Blood Blood / Unknown 12/30/2022 1 0:40 AM EDT 12/30/2022 10:40 AM EDT Narrative [facility] - 12/31/2022 7:57 AM EDT FASTING:YES Cordelia Moraes PA-C LAB - BLOOD DRAW Edited Resu lt - Final [facility] [address] [address], [facility] [address] [place] [address] from Last 3 Months or Most Recently Relevant to Health Maintenance Insurance [facility] Member Subscriber Plan / Payer (Ef fective 2021-Present) Name:Lida Peoples Relation to Subscriber:Self Name:Lida Peoples Payer ID:[id number] Group ID:Not on file Type:Indemnity Address: [place] [address] [address] [id number] Care Teams Academic Specialist Relationship Specialty Start Date End Date Cordelia Moraes PA-C [address] [place] [address] PCP - General Internal Medicine 09/05/22
[2024-08-26 13:26] LABS: Free T4 (Free Thyroxine) 0.86 ng/dL (0.71-1.85)
[2024-08-26 13:35] LABS: Anion Gap 12 (12-20); Blood Urea Nitrogen 16 mg/dL (9-16); Carbon Dioxide 30 mmol/L (22-29); Chloride 105 mmol/L (96-108); Estimated Glomerular Filt Rate 41; Glucose Random 134 mg/dL (60-115); Potassium 3.8 mmol/L (3.3-5.1); Sodium 143 mmol/L (135-145); Thyroid Stimulating Hormone 1.49 uIU/mL (0.32-4.0); Uric Acid 9.8 mg/dL (2.4-5.7)
== END 2024-08-26 10:49 | disposition home or self-care (01) ==
LOC: HO.LAB 10:48
PROVIDERS: Internal Medicine Endocrinology, Diabetes & Metabolism; PCP Physician Assistant; Visit Provider Internal Medicine Hypertension Specialist
DX: E04.2 Nontoxic multinodular goiter (principal); I12.9 Hypertensive chronic kidney disease with stage 1 through stage 4 chronic kidney disease, or unspecified chronic kidney disease; E11.22 Type 2 diabetes mellitus with diabetic chronic kidney disease; N18.30 Chronic kidney disease, stage 3 unspecified; M10.9 Gout, unspecified; I42.0 Dilated cardiomyopathy; Z79.4 Long term (current) use of insulin; Z79.899 Other long term (current) drug therapy
CPT/HCPCS: 36415; 80048; 84439; 84443; 84550; 99212

== ENCOUNTER 2024-08-26 11:07 | Outpatient (AMB) | payer OTHER, SELFPAY ==
[2024-08-26 11:10] VITALS: BP 98/54; PULSE 70; O2SAT 98; BMI 25.6
--- NOTE | 2024-08-26 11:10 | HO.NEPHOV_ITS ---
Vital Signs 08/26/24 11:10 Height 4 ft 11 in Weight 127 lb BMI 25.6 BP 98/54 L Blood Pressure Location Lt brachial Position Sitting Pulse 70 Pulse Source Pulse Oximeter Pulse Oximetry (%) 98 Oxygen Delivery Method Room Air Intake Visit Reasons: CKD-LVM Publicity Consultant Required: Yes Publicity Consultant Name: Phan [id number] Accompanied by: Self / Same As Patient Allergies egg [EGG] Allergy (Intermediate, Verified 08/26/24 11:13) RASH Fish Containing Products Allergy (Intermediate, Verified 08/26/24 11:13) RASH oxycodone [OXYCODONE] Allergy (Intermediate, Verified 08/26/24 11:13) RASH acetaminophen [From PERCOCET] Allergy (Unknown, Verified 08/26/24 11:13) RASH/ITCHING codeine [CODEINE] Allergy (Unknown, Verified 08/26/24 11:13) ITCHING hydrocodone [From VICODIN] Allergy (Unknown, Verified 08/26/24 11:13) UNKNOWN lisinopril [LISINOPRIL] Allergy (Unknown, Verified 08/26/24 11:13) UNKNOWN metoclopramide [From REGLAN] Allergy (Unknown, Verified 08/26/24 11:13) UNKNOWN naproxen [Naprosyn] Allergy (Unknown, Verified 08/26/24 11:13) Unknown tramadol Allergy (Unknown, Verified 08/26/24 11:13) Unknown Medication List - Last Reconciled 08/26/24 by Tavares Cutler MD allopurinol 100 mg PO DAILY apixaban (Eliquis) 5 mg PO BID aspirin 81 mg PO DAILY atorvastatin 40 mg PO DAILY cholecalciferol (vitamin D3) 50 mcg PO DAILY ciprofloxacin-dexamethasone 0.3-0.1 % 4 drps otic (ear) right BID 7 days diclofenac sodium 1% 1 ea topical QID PRN empagliflozin (Jardiance) 10 mg PO DAILY fluticasone propionate 50 mcg/actuation 50 mcg intranasal DAILY PRN furosemide 40 mg See Protocol PO BID@0900,1800 furosemide 20 mg PO DAILY gabapentin 600 mg PO TID insulin glargine (Lantus Solostar U-100 Insulin) 8 units subcut BEDTIME lancets To test blood glucose 2 times a day lancing device (Adjustable Lancing Device) 3 times a day linagliptin (Tradjenta) 5 mg PO DAILY loratadine 10 mg PO DAILY PRN methocarbamol 750 mg PO BID PRN metoprolol succinate ER mg PO DAILY multivitamin with folic acid 400 mcg (Daily-Mallika (with folic acid)) 1 tab PO DAILY omeprazole 10 mg PO DAILY@0630 pen needle, diabetic (BD Radha 2nd Gen Pen Needle) once a day sacubitril-valsartan 24-26 mg (Entresto) 1 tab See Protocol PO BID silver sulfadiazine 1% 1 appl topical DAILY PRN spironolactone 25 mg PO BID triamcinolone acetonide 0.5% 1 appl topical BID PRN zolpidem 5 mg PO BEDTIME PRN HPI Comments Details: 68 yr old woman with DM and HTN with CKD Complains of pain and swelling of the right foot She had a course of prednisone - but not taking it Echocardiogram showed severely dilated left ventricle with severe global hypokinesis Today she has no shortness of breath. She is compliant with all her medications. No lightheadedness. Publicity Consultant service was used Another episode of gout Recently hospitalized for dyspnea in January 29 08/26/24 Recently received IV Iron Jardiance has been added in Jun 2024 COUNTS INCLUDE 234 BEDS AT THE [facility] Medical History Pericardial cyst CHF (congestive heart failure) CHF (congestive heart failure) Hypoglycemia unawareness associated with type 2 diabetes mellitus Vitamin D deficiency Diabetic neuropathy associated with type 2 diabetes mellitus CKD (chronic kidney disease) stage 3, GFR 30-59 ml/min Hypertension Dyslipidemia senior living (current) use of insulin Non-toxic multinodular goiter Diabetes type 2, uncontrolled Surgical History Hx of biopsy AICD (automatic cardioverter/defibrillator) present Hx of appendectomy Hx of hysterectomy Family History Father Alcoholism Diabetes Mother Arthritis Hypertension Social History Household Members: None Household Members Other:: Lives by self Housing: Apartment Do you presently have visiting nurse or other home services: Yes Unable to assess alcohol history related to: Unknown Alcohol intake: current Alcohol intake frequency: does not drink Patient Tobacco Use Status: Never used Tobacco e-Cigarette/Vaping Use: Never Used Second Hand Smoke Exposure: No service: No Physical Exam Vital Signs: Last Vital Signs Pulse 70 08/26/24 11:10 BP 98/54 L 08/26/24 11:10 Pulse Ox 98 08/26/24 11:10 Oxygen Delivery Method Room Air 08/26/24 11:10 BMI result Body Mass Index 25.6 Comfortable Neck supple no JVD. Lungs entry equal no rales. Heart S1-S2 heard no gallop or rub. Abdomen soft nontender. Neuro alert awake oriented. No asterixis. Extremities no edema. Results Reviewed Nephrology Results: Hgb 10.9 g/dl (12.0-16.0) L 05/01/24 WBC 13.0 X10*3/uL (4.8-10.8) H 05/01/24 Plt Count 329 X10*3/uL (160-400) 05/01/24 Sodium 142 mmol/L (135-145) 05/03/24 Potassium 3.8 mmol/L (3.3-5.1) 05/03/24 Chloride 107 mmol/L (96-108) 05/03/24 Carbon Dioxide 25 mmol/L (22-29) 05/03/24 BUN 12 mg/dL (9-16) 05/03/24 Creatinine 1.20 mg/dL (0.5-1.4) 05/03/24 Calcium 8.5 mg/dL (8.4-10.2) 05/03/24 Urine Protein Negative mg/dL (Neg-Trace) 04/15/24 Assessment & Plan Assessment & Plan (1) CKD (chronic kidney disease) stage 3, GFR 30-59 ml/min: Code(s): N18.30 - Chronic kidney disease, stage 3 unspecified Category: Medical Qualifiers: Chronic kidney disease stage 3 subtype: unspecified whether 3a or 3b Qualified Code(s): N18.30 - Chronic kidney disease, stage 3 unspecified Plan 68-year-old woman with a longstanding hypertension diabetes mellitus with CKD. She has stage III CKD. Renal function back to baseline. Serum creatinine 1.28. She appears euvolemic. Continue current dose of diuretics. Encouraged her to stay on low-sodium diet. Continue with current medications including SGLT2 inhibitors and no changes were made. Maintain A1c less than 7% Avoid nephrotoxic agents including NSAIDs. Repeat labs done today and results are pending Gout On Allopurinol Does not want to take prednisone. Encouraged her to follow up with Rheumatology. Coding Level of Care Code Est Pt Level 4 (64588) Diagnoses Stage 3 chronic kidney disease, unspecified whether stage 3a or 3b CKD N18.30 Chronic kidney disease stage 3 subtype: unspecified whether 3a or 3b
--- OUTSIDE RECORDS SUMMARY | 2024-08-26 13:15 | XMS_ITS | Encounter Summary ---
Author Organization [facility] Address [address] [place] [address] [address] [place] [address] Care Team Providers Care Jordan Worker Name Role Phone Unavailable Primary Care Provider [...]
--- OUTSIDE RECORDS SUMMARY | 2024-08-26 13:15 | XMS_ITS | Encounter Summary ---
Author Organization [facility] Address [address] [place] [address] Phone Care Team Providers Care Electrical Machine Builder Name Role Phone Catherine Cuellar MD Primary Care Provider [phone]- [phone] Reason for Visit * Reason Comments Med Refill Encounter Details Date Type Department Care Team (Late st Contact Info) Description 05/08/2022 Refill [facility] [address] [place] [address] Talib Larkin MD Social History [...] filedocumented in this encounter Care Teams Electrical Machine Builder Relationship Specialty Start Date End Date Catherine Cuellar MD PCP - General 08/13/20 documented as of this encounter
--- OUTSIDE RECORDS SUMMARY | 2024-08-26 13:15 | XMS_ITS | Clinical Summary ---
Author Organization [facility] Address [address] [place] [address] [address] [place] [address] Care Team Providers Care Swing Type Lathe Operator Name Role Phone Unavailable Primary Care Provider [...] Relevant to Health Maintenance Insurance [facility] - [facility] * Guarantor: Lida Peoples Account Type Relation to Patient Date of Phone Billing Address Personal/Family Self [address]
--- OUTSIDE RECORDS SUMMARY | 2024-08-26 13:15 | XMS_ITS | Clinical Summary ---
Author Organization [facility] Address [address] [place] [address] [place] [address] Phone Care Team Providers Care Eyeglass Inspector Name Role Phone Catherine Cuellar MD Primary Care Provider [phone]- [phone] Allergies Active Allergy Reactions Criticality Noted Date [...] omeprazole (PriLOSEC) [address] capsule [place] 1 Active Entresto [...] failure 11/30/2020 Overview (11/30/2020): Dr. Jens Rosas, [facility] cardiology Hypertensive disorder 11/30/2020 Hypercholesterolemia 11/30/2020 Gastroesophageal reflux disease 11/30/2020 Fibromyalgia 11/30/2020 Ectopic kidney 11/30/2020 Dilated cardiomyopathy 11/30/2020 Overview (11/30/2020): 05/2017 EF 40% Dr. Jens Rosas -[facility] cardiology. AICD Proteinuria 11/30/2020 Renal disorder due to type 2 diabetes mellitus 0 11/30/2020 Pain of knee region 05/03/2019 Chronic kidney disease stage 3 due to type 2 diabetes mellitus 08/17/2018 Overview (11/30/2020): Cr 2.0 on 07/29/18 - outside labs by Endo. Referred by Josue to Dr Cornel Cutler ([facility]). Latest Cr 06/06/19 1.14, Hgb 10.3 Anemia [...] patient's age to complete this topic Insurance [facility] ([id number]) [facility] ([id number]) Care Teams Eyeglass Inspector Relationship Specialty Start Date End Date Catherine Cuellar MD PCP - General 08/13/20
--- OUTSIDE RECORDS SUMMARY | 2024-08-26 13:15 | XMS_ITS | Clinical Summary ---
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 100 Each 11 024 Active silver sulfADIAZINE (SILVADENE) 1 % cream [facility] #[id number] - [place], [place] [phone] 50 g Refills RemaininDays Supply: 30Sig: APPLY TOPICALLY TO NAIL BED DAILYSource: Surescripts (Fill History, Ambulatory)Autho rized by: JESSICA KAYE Active omeprazole (PRILOSEC) [address] capsule TOME MONA CAPSULA TODOS [place] EN LA MANANA ANTES DEL DESAYUNO 90 Capsule 1 Active multivitamin with folic acid (DAILY-MOSES, WITH FOLIC ACID,) 400 mcg tabIndications:C hronic kidney disease, stage 3b ([facility]) TOME 1 TABLETA POR VIA ORAL TODOS [place] 90 Tablet 1 Active triamcinolone (KENALOG) 0.5 % cream APPLY TO AFFECTED AREA TWICE DAILY FOR 2 WEEKS. THEN ON AND OFF NEEDED FOR FLARES. 15 g 1 Active LANTUS SOLOSTAR U-100 INSULIN 100 unit/mL (3 mL) penIndications:T ype 2 diabetes mellitus with stage 3b chronic kidney disease, with long-term current use of insulin ([facility]) INJECT 10 UNITS SUBCUTANEOUSLY DAILY 15 Pen 1 Active metoprolol succinate XL (TOPROL-XL) 100 mg 24 hr tabletIndication s:Heart failure with reduced ejection fraction, NYHA class III ([facility]) Take 1 Tablet by mouth once daily (Prescribed by [facility]) Active ENTRESTO 24-26 mg tabIndications:H eart failure with reduced ejection fraction, NYHA class III ([facility]) Take 1 Tablet by mouth 2 (two) times daily (Prescribed by [facility]) Active spironolactone (ALDACTONE) 25 mg tabletIndication s:Heart failure with reduced ejection fraction, NYHA class III ([facility]) Take 1 Tablet by mouth once daily (Prescribed by [facility]) Active TRADJENTA 5 mg tabIndications:T ype 2 diabetes mellitus with stage 3a chronic kidney disease, with long-term current use of insulin ([facility]) Take 1 Tablet by mouth every morning For diabetes 90 Tablet 1 Active blood-glucose meter,continuous (FREESTYLE CLIF 3 READER) miscIndications: Type 2 diabetes mellitus with stage 3a chronic kidney disease, with long-term current use of insulin ([facility]) Use to test blood glucose continuously. (Freestyle Clif 3 reader) 1 Each 024 Active empagliflozin (JARDIANCE) 10 mg tabIndications:T ype 2 diabetes mellitus with stage 3a chronic kidney disease, with long-term current use of insulin ([facility]),Heart failure with reduced ejection fraction, NYHA class III ([facility]) Take 1 Tablet by mouth every morning stop Tradjenta 5 mg 90 Tablet 1 024 Active gabapentin (NEURONTIN) 600 mg tabletIndication s:Fibromyalgia TOME MONA TABLETA ALISTAIR VECES AL ANANTH 270 Tablet 024 Active furosemide (LASIX) 40 mg tabletIndication s:Heart failure with reduced ejection fraction, NYHA class III ([facility]) Take 1 Tablet by mouth 2 (two) times daily 180 Tablet 1 024 Active allopurinoL (ZYLOPRIM) 100 mg tabletIndication s:Idiopathic gout, unspecified chronicity, unspecified site TOME 1 TABLETA POR VIA ORAL TODOS [place] 90 Tablet 024 Active blood-glucose sensor (FREESTYLE CLIF 3 PLUS SENSOR) deviIndications: Type 2 diabetes mellitus with stage 3a chronic kidney disease, with long-term current use of insulin ([facility]) Place 1 sensor to back of upper arm every 15 days. Use to monitor blood sugar continuously (Freestyle Clif 3 Plus) 2 Each 024 Active BD LISA 2ND GEN PEN NEEDLE 32 gauge x 5/32 ndleIndications: Type 2 diabetes mellitus with stage 3b chronic kidney disease, with long-term current use of insulin ([facility]) 1 to 3 (one to three) [...] disease, with long-term current use of insulin ([facility]) Use to test blood glucose three times daily. (Freestyle Lancets) 100 Each 11 024 Active blood sugar diagnostic stripsIndication s:Type 2 diabetes mellitus with stage 3a chronic kidney disease, with long-term current use of insulin ([facility]) Use to test blood glucose three times [...] (FLONASE) 50 mcg/actuation nasal spray Place 1 [place] in both nostrils once daily NEEDED FOR [...] pacemaker 12/30/2022 12/30/2022 Overview (06/21/2024): 06/14/24 at [facility] Plan ~Labs today ~Refer back to [...] messaged for pt's arm MRI 05/12/24 at [facility] Plan ~24-Holter monitor to assess PVC burden 04/08/24 at [facility] Plan ~Reduce Lasix to 20 mg as needed weight gain greater than 3 pounds / 1-2 days, increased leg swelling, increased shortness of breath ~Stop carvedilol 12.5 mg twice daily and start metoprolol XL 100 mg daily ~Pt encouraged to hydrate in the range of 8 glasses fluid daily ~Repeat Sleep study in-lab ~Message to Device to assess PVC burden 03/04/24 at [facility] Plan: - increase entresto to 97-103mg BID - pt will monitor wt at home and repeat labs in a week, if wt has not improved would double lasix dose for 3-4 days - f/u in 1 months - would repeat ekg and if QRS wide with LBBB pattern ask EP if we need 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 Heart [...] reduced e jection fraction, NYHA class III ([facility]) 12/30/2022 12/30/2022 Overview (06/21/2024): 06/14/24 at [facility] Plan ~Labs today ~Refer back to [...] messaged for pt's arm MRI 05/12/24 at [facility] Plan ~24-Holter monitor to assess PVC burden 04/08/24 at [facility] Plan ~Reduce Lasix to 20 mg as needed weight gain greater than 3 pounds / 1-2 days, increased leg swelling, increased shortness of breath ~Stop carvedilol 12.5 mg twice daily and start metoprolol XL 100 mg daily ~Pt encouraged to hydrate in the range of 8 glasses fluid daily ~Repeat Sleep study in-lab ~Message to Device to assess PVC burden 03/04/24 at [facility] Plan: - increase entresto to 97-103mg BID - pt will monitor wt at home and repeat labs in a week, if wt has not improved would double lasix dose for 3-4 days - f/u in 1 months - would repeat ekg and if QRS wide with LBBB pattern ask EP if we need 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 Heart [...] Post op right lobectomy DOS 11/10/22 at [facility]. Anemia of chronic renal failure 11/30/2020 12/30/2022 Dilated cardiomyopathy ([facility]) 11/30/2020 12/30/2022 Overview (06/21/2024): 06/14/24 at [facility] Plan ~Labs today ~Refer back to [...] messaged for pt's arm MRI 05/12/24 at [facility] Plan ~24-Holter monitor to assess PVC burden 04/08/24 at [facility] Plan ~Reduce Lasix to 20 mg as needed weight gain greater than 3 pounds / 1-2 days, increased leg swelling, increased shortness of breath ~Stop carvedilol 12.5 mg twice daily and start metoprolol XL 100 mg daily ~Pt encouraged to hydrate in the range of 8 glasses fluid daily ~Repeat Sleep study in-lab ~Message to Device to assess PVC burden 03/04/24 at [facility] Plan: - increase entresto to 97-103mg BID - pt will monitor wt at home and repeat labs in a week, if wt has not improved would double lasix dose for 3-4 days - f/u in 1 months - would repeat ekg and if QRS wide with LBBB pattern ask EP if we need 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 Heart [...] se due to type 2 diabetes mellitus ([facility]) 08/17/2018 12/30/2022 Overview (06/21/2024): 04/25/24 at [facility] - Dr. Omayra Chapin Echocardiogram showed severely [...] Referred by Endo to Dr Cornel Cutler ([facility]). Latest Cr 06/06/19 1.14, Hgb 10.3 Constipation 01/21/2018 12/30/2022 Eczema 01/21/2018 12/30/2022 Gout 01/21/2018 12/30/2022 Overview (12/30/2022): 2017 Left toe 2018 Left toe Implantable cardioverter-defibrillator (ICD) in situ 01/21/2018 12/30/2022 Overview (10/30/2023): [facility] - 08/25/23 Cardiology Shared Clinical Summary [...] disease, with long-term current use of insulin ([facility]) 08/03/2007 12/30/2022 Overview (06/22/2024): DM dx: ~[id number] per patient reports Glucometer: [employer] Worldwidestyle Clif 3 Plus Current Diabetes RX: Lantus Solostar - inject 8 units daily at bedtime Jardiance 10 mg daily every morning (CKD/HF) MARCO-I/ARB: Entresto 24/26 mg twice daily (prescribed by [facility]) Statin: Atorvastatin 40 mg daily at bedtime (prescribed by [facility]) Pneumococcal vaccine: PPSV23 (02/16/09) Diabetes foot exam: 02/26/23, podiatry referral sent on 10/09/23 by PCP Diabetes retinal exam: 02/09/24 at [facility] No retinopathy Meibomian Gland Dysfunction OU. Hot compresses for 10 minutes 4 times daily. Monitor. Pterygium OS. Mildly inflammed pterygium, consider Lotemax if irritation worsens. Resolved Problems Problem Noted Date Diagnosed Date Resolved Date Chronic systolic heart failure ([facility]) 11/30/2020 12/30/2022 10/28/2023 Overview (12/30/2022): Dr. Jens Rosas, [facility] cardiology Dr. Jens Rosas, [facility] cardiology Diabetic nephropathy associa tanisha with type 2 diabetes mellitus ([facility]) 11/30/2020 12/30/2022 10/28/2023 Encounters Date Type Department Care Team Description 07/18/2024 11:20 AM EST Office Visit [address] [address] Child, ClarenceUMAIR, Иван Acute suppurative otitis media of right ear without spontaneous rupture of tympanic membrane, recurrence not specified (Primary Dx); Non-Turkmen speaking patient 07/18/2024 Travel 06/21/2024 1:40 PM EST Office Visit [address] [address] Reza Britt, Patsy Type 2 diabetes mellitus with stage 3a chronic kidney disease, with long-term current use of insulin ([facility]) (Primary Dx); Heart failure with reduced ejection fraction, NYHA class III ([facility]); Dilated cardiomyopathy ([facility]); Cardiac pacemaker; Stage 3 chronic kidney disease due to type 2 diabetes mellitus ([facility]) 06/21/2024 Travel 06/08/2024 Interim Notes [address] [address] [place] Saucedo [place] 05/30/2024 9:00 AM EDT Telemedicine Visit [facility] [address] [phone] Cordelia Moraes PA-C Right wrist pain (Primary [...] Description 09/01/2024 1:40 PM EST Office Visit [address] [address] Reza Birtt, PharmD [address] [place] [address] 09/30/2024 1:40 PM EST Office Visit [address] [address] Cordelia Moraes PA-C [address] [place] [address] Health Maintenance Due Date Last Done Comments [...] 02/26/2023, 12/30/2022 Lipid Screening 10/27/2024 10/28/2023, 12/30/2022 [id number] ( season) 2024 10/29/2020, 09/30/2020 Postponed from [...] disease, with long-term current use of insulin ([facility]) COMPREHENSIVE METABOLIC PANEL Routine 06/21/2024 2:31 PM EST Type 2 diabetes mellitus with stage 3b chronic kidney disease, with long-term current use of insulin ([facility]) VITAMIN B12 & FOLATE Routine 06/21/2024 2:29 PM EST Type 2 diabetes mellitus with stage 3a chronic kidney disease, with long-term current use of insulin ([facility]) GLUCOSE, BLOOD BY GLUCOSE MONITORING DEVICE (CLIA WAIVED)POCT Routine 06/21/2024 1:47 PM EST Type 2 diabetes mellitus with stage 3a chronic kidney disease, with long-term current use of insulin ([facility]) MEDICATIONS SCANNED DOCUMENT 05/27/2024 3:00 AM EDT MEDICATIONS SCANNED DOCUMENT 05/27/2024 3:00 AM EDT REFERRAL FOR MAMMOGRAM Routine 3:00 AM EDT Screening mammogram, encounter for REFERRAL TO DIABETIC RETINAL EXAM Routine 02/09/2024 3:00 AM EDT Type 2 diabetes mellitus with stage 3a chronic kidney disease, with long-term current use of insulin ([facility]) LIPIDS W RFLX TO DIRECT LDL Routine 10/28/2023 10:18 AM EDT Preoperative clearance Type 2 diabetes mellitus with stage 3b chronic kidney disease, with long-term current use of insulin ([facility]) MICROALBUMIN/CREATININ E RATIO, URINE, RANDOM Routine 02/26/2023 2:03 PM EDT Type 2 diabetes mellitus with stage 3b chronic kidney disease, with long-term current use of insulin ([facility]) HEPATITIS C AB W/RFLX HCV RNA, QT, RT PCR Routine 12/30/2022 10:40 AM EDT Encounter to establish care from Last 3 Months or Most Recently Relevant to Health Maintenance Results * REFERRAL SCANNED DOCUMENT (06/27/2024 3:00 AM EST) 06/27/2024 3:00 AM EST [facility] Provider Default SCAN REFERRAL Final Resu lt * (ABNORMAL) HGA1C W/EAG (06/21/2024 2:31 PM EST) HEMOGLOBIN A1C 6.3(H) <5.7 % of total Hgb [facility] Comment: For someone without known diabetes, a [...] diabetes for children. EAG (MG/DL) 134 mg/dL [facility] EAG (MMOL/L) 7.4 mmol/L [facility] Blood Blood / Unknown 06/21/2024 2 :31 PM EST 06/21/2024 2:32 PM EST Narrative [facility] - 06/22/2024 12:48 PM EST FASTING:NO Cordelia Moraes PA-C LAB - BLOOD DRAW Final Resul t [facility] [address] [address], [facility] [address] [place] [address] * (ABNORMAL) COMPREHENSIVE METABOLIC PANEL (06/21/2024 2:31 PM EST) [facility] GLUCOSE 101 65 - 139 mg/dL [facility] Comment: ?Non-fasting reference interval UREA NITROGEN (BUN) 24 7 - 25 mg/dL [facility] CREATININE (blood) 1.66(H) 0.50 - 1.05 mg/dL [facility] EGFR 33(L) > OR = 60 mL/min/1. 73m2 [facility] BUN/CREATININE RATIO 14 6 - 22 (calc) [facility] SODIUM 134(L) 135 - 146 mmol/L [facility] POTASSIUM 4.4 3.5 - 5.3 mmol/L [facility] CHLORIDE 94(L) 98 - 110 mmol/L [facility] CARBON DIOXIDE 28 20 - 32 mmol/L [facility] CALCIUM 9.6 8.6 - 10.4 mg/dL [facility] PROTEIN, TOTAL 7.6 6.1 - 8.1 g/dL [facility] ALBUMIN 4.3 3.6 - 5.1 g/dL [facility] GLOBULIN 3.3 1.9 - 3.7 g/dL (calc) [facility] ALBUMIN/GLOBULI N RATIO 1.3 1.0 - 2.5 (calc) [facility] BILIRUBIN, TOTAL 0.4 0.2 - 1.2 mg/dL [facility] ALKALINE PHOSPHATASE 79 37 - 153 U/L [facility] AST 14 10 - 35 U/L [facility] ALT 10 6 - 29 U/L [facility] Blood Blood / Unknown 06/21/2024 2 :31 PM EST 06/21/2024 2:32 PM EST Narrative [facility] - 06/22/2024 12:48 PM EST FASTING:NO us Cordelia Moraes PA-C LAB - BLOOD DRAW Edited Resu lt - Final [facility] [address] [address], [facility] [address] [place] [address] * VITAMIN B12 & FOLATE (06/21/2024 2:29 PM EST) VITAMIN B12 287 200 - 1,100 pg/mL [facility] Comment: Please Note: Although the reference range for vitamin B12 is 200-1100 pg/mL, it has been reported that between 5 and 10% of patients with values between 200 and 400 pg/mL may experience neuropsychiatric and hematologic abnormalities due to occult B12 deficiency; less than 1% of patients with values above 400 pg/mL will have symptoms. FOLATE, SERUM 8.9 5.5 ng/mL [facility] Comment: ? Reference Range ? Low: ? <3.4 ? Borderline: ?3.4-5.4 ? Normal: ?>5.4 Blood Blood / Unknown 06/21/2024 2 :29 PM EST 06/21/2024 2:30 PM EST Reza Britt PharmD LAB - BLOOD DRAW Edited R esult - Final Performing Organization Address City/[facility]/ZIP Co de Phone Number [facility] [address] [address], [facility] [address] [address] * (ABNORMAL) GLUCOSE, BLOOD BY GLUCOSE MONITORING DEVICE (CLIA WAIVED)POCT (06/21/2024 1:47 PM EST) GLUCOSE 139(A) 70 - 100 mg/dL [facility]- BACK OFFICE POCT Capillary Blood Blood / Unknown 1:47 PM EST Reza Britt PharmD LAB - BLOOD DRAW Final Re sult [facility] PO[facility] * MEDICATIONS SCANNED DOCUMENT [...] AM EDT) CHOLESTEROL, TOTAL 131 <200 mg/dL [facility] HDL CHOLESTEROL 35(L) > OR = 50 mg/dL [facility] TRIGLYCERIDES 158(H) <150 mg/dL [facility] LDL-CHOLESTEROL 72 99 mg/dL (calc) [facility] Comment: Reference range: <100 Desirable range <100 mg/dL for primary prevention; ?? <70 mg/dL for patients with CHD or diabetic patients with > or = 2 CHD risk factors. LDL-C is now calculated using the Len-Yohana calculation, which is a validated novel method providing better accuracy than the Friedewald equation in the estimation of LDL-C. Len SS et al. JENNIFER. 2013;310(19): 4335-3355 (http://education.MiFi/faq/MEY219) CHOL/HDLC RATIO 3.7 <5.0 (calc) [facility] NON-HDL CHOLESTEROL 96 <130 mg/dL (calc) [facility] Comment: For patients with diabetes plus 1 major ASCVD risk factor, treating to a non-HDL-C goal of <100 mg/dL (LDL-C of <70 mg/dL) is considered a therapeutic option. Blood Blood / Unknown 10/28/2023 1 0:18 AM EDT 10/28/2023 10:18 AM EDT Narrative [facility] - 10/29/2023 9:14 AM EDT FASTING:YES us Cordelia Moraes PA-C LAB - BLOOD DRAW Final Resul t [facility] [address] [address], [facility] [address] [place] [address] * MICROALBUMIN/CREATININE RATIO, URINE, RANDOM (02/26/2023 2:03 PM EDT) CREATININE, RANDOM URINE 37 20 - 275 mg/dL [facility] MICROALBUMIN <0.2 mg/dL [facility] Comment: Reference Range Not established MICROALBUMIN/CREA TININE RATIO, RANDOM URINE NOTE <30 [facility] Comment: NOTE: The urine albumin value is [...] EDT 02/26/2023 2:04 PM EDT Richa Atkins HAND SHAPER LAB - NO BLOOD DRAW Final Result [facility] [address] [address], [facility] [address] [address] * HEPATITIS C AB W/RFLX HCV RNA, QT, RT PCR (12/30/2022 10:40 AM EDT) [facility] HEPATITIS C ANTIBODY NON-REACT OBI NON-REACT OBI [facility] SIGNAL TO CUT-OFF 0.11 <1.00 [facility] Comment: HCV antibody was non-reactive. There is no laboratory evidence of HCV infection. In most cases, no further action is required. However, if recent HCV exposure is suspected, a test for HCV RNA (test code 83323) is suggested. For additional information please refer to http://education.StrongSteam/faq/CTT70h7 (This link is being provided for informational/ educational purposes only.) Blood Blood / Unknown 12/30/2022 1 0:40 AM EDT 12/30/2022 10:40 AM EDT Narrative [facility] - 12/31/2022 7:57 AM EDT FASTING:YES Cordelia Moraes PA-C LAB - BLOOD DRAW Edited Resu lt - Final [facility] [address] [address], [facility] [address] [place] [address] from Last 3 Months or Most Recently Relevant to Health Maintenance Insurance [facility] Member Subscriber Plan / Payer (Ef fective 2021-Present) Name:Lida Peoples Relation to Subscriber:Self Name:Lida Peoples Payer ID:[id number] Group ID:Not on file Type:Indemnity Address: [place] [address] [address] [address] Care Teams Candy Forming Machine Operator Relationship Specialty Start Date End Date Cordelia Moraes PA-C [address] [place] [address] PCP - General Internal Medicine 09/05/22
== END 2024-08-26 11:23 | disposition home or self-care (01) ==
PROVIDERS: PCP Physician Assistant; Visit Provider Internal Medicine Hypertension Specialist
DX: N18.30 Chronic kidney disease, stage 3 unspecified (principal)
CPT/HCPCS: 99214

== ENCOUNTER 2024-10-17 14:32 | Outpatient (AMB) | payer OTHER, SELFPAY ==
--- NOTE | 2024-10-17 14:55 | MHC.OFFVIS ---
Vital Signs 10/17/24 14:58 Height 4 ft 11 in Weight 130 lb 11.746 oz BMI 26.4 BP 100/68 Blood Pressure Location Rt brachial Position Sitting Pulse 74 Pulse Source Pulse Oximeter Pulse Oximetry (%) 100 Oxygen Delivery Method Room Air Intake Visit Reasons: f/u MNG Intake Note: Patient present today for MNG office visit. Paraprofessional Aide Teacher Required: Yes Paraprofessional Aide Teacher Name: [id number] Information Interpreted: non-clinical & clinical Accompanied by: Self / Same As Patient Allergies egg [EGG] Allergy (Intermediate, Verified 10/17/24 15:02) RASH Fish Containing Products Allergy (Intermediate, Verified 10/17/24 15:02) RASH oxycodone [OXYCODONE] Allergy (Intermediate, Verified 10/17/24 15:02) RASH acetaminophen [From PERCOCET] Allergy (Unknown, Verified 10/17/24 15:02) RASH/ITCHING codeine [CODEINE] Allergy (Unknown, Verified 10/17/24 15:02) ITCHING hydrocodone [From VICODIN] Allergy (Unknown, Verified 10/17/24 15:02) UNKNOWN lisinopril [LISINOPRIL] Allergy (Unknown, Verified 10/17/24 15:02) UNKNOWN metoclopramide [From REGLAN] Allergy (Unknown, Verified 10/17/24 15:02) UNKNOWN naproxen [Naprosyn] Allergy (Unknown, Verified 10/17/24 15:02) Unknown tramadol Allergy (Unknown, Verified 10/17/24 15:02) Unknown HPI Comments Details: 69 YO Female with a PMHx of a NTMNG status post right hemithyroidectomy 11/10/[address] 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 HPI She has a longstanding history of a multinodular thyroid and has undergone multiple FNA biopsies in the past as detailed below: 12/10/2017: RMP 1.6 cm - Benign cytology RLP 1.2 cm - Benign cytology 01/20/2019: RMP 1.8 cm - Atypia of Undetermined Significance (bethesda category III), Affirma Benign 05/24/2020: RMP 2.4 cm - Benign cytology She then had a repeat US 06/20/2021 which revealed growth of her RMP and RLP nodules. She was scheduled for FNA biopsy and underwent this with IR on 01/06/2022 with her RMP 1.2 cm thyroid nodule benign (bethesda category II) and her RLP 1.6 cm thyroid nodule nondiagnostic. She then represented for an FNA biopsy with me 04/09/2022 with identification of a new RMP 1.2 cm hypoechoic nodule with irregular borders. FNA was recommended of this nodule, but the patient refused, and instead requested a R hemithyroidectomy. She underwent her right hemithyroidectomy 11/10/2022 with official surgical path benign, revealing NIFT-P. 1.2 cm. She is now followed for left-sided nodules. Interval history 04/07/2023: Most recent thyroid ultrasound showed a left superior 0.4 cm cystic nodule, a left superior medial 0.8 cm cyst, and a left mid 1 cm solid, hypoechoic TR 4 category nodule, another left mid 1.2 cm solid, isoechoic TR 3 category nodule. The last two meet criteria for follow up. She has denied any compressive symptoms. She denies any symptoms of hyper or hypothyroidism. She denies any personal history of radiation to the head or the neck. She denies any family history of thyroid cancer. Physical exam General: sitting comfortably in no acute distress HEENT: normocephalic/atraumatic, Neck: supple, no palpable nodules or lymph nodes Cardiac: normal heart sounds Pulm: normal breath sounds B/L, no added breath sounds Abd: not distended, no tenderness Extremities: no edema, no signs of myxedema Laboratory Tests 08/26/24 10:59 TSH 1.49 Free T4 0.86 US THYROID 04/07/23 CLINICAL INFORMATION: Nontoxic multinodular goiter. COMPARISON: Ultrasound soft tissue head/neck thyroid dated 06/20/2021 and 01/02/2020. TECHNIQUE: Linear transducer grayscale and color Doppler examination with attention to the region of the thyroid. FINDINGS: SIZE: Measurements of the solitary left thyroid lobe and nodules are given in sagittal, anteroposterior and transverse dimensions respectively. Right Thyroid Lobe: Surgically absent. Left Thyroid Lobe: 4.0 x 1.7 x 1.7 cm, volume 6.0 mL. Previously 4.9 x 1.1 x 1.8 cm, volume 5.1 mL. Parenchyma: The gland echotexture is homogeneous. Thyroid vascularity is increased. Isthmus: 0.3 cm in maximum AP dimension. Previously 0.3 cm. Estimated total number of nodules greater than or equal to 1 cm: 2. Portable Machine Cutter nodules are described as follows: 1. Location: Left superior. Size: 0.4 x 0.3 x 0.4 cm, volume 0.03 mL. Previously: 0.4 x 0.3 x 0.4 cm, volume 0.03 mL. Nodule characteristics: Composition: Cystic(0). ACR TI-RADS total points: 0 Previous: 0 ACR TI-RADS category: 1 Previous: 1 Significant change in size (>/= 20% in 2 dimensions and minimal increase of 2 mm or 50% or greater increase in volume): No Change in features: No Change in ACR TI-RADS risk category: No 2. Location: Left superior medial. Size: 0.8 x 0.4 x 0.5 cm, volume 0.08 mL. Previously: New since the previous study. Nodule characteristics: Composition: Cystic(0). ACR TI-RADS total points: 0 ACR TI-RADS category: 1 3. Location: Left mid. Size: 1.0 x 0.7 x 0.9 cm, volume 0.34 mL. Previously: New since the previous study. Nodule characteristics: Composition: Solid (2). Echogenicity: Hypoechoic (2). Shape: Not taller than wide (0). Margins: Ill-defined (0). Echogenic Foci: None (0). ACR TI-RADS total points: 4 ACR TI-RADS category: 4 4. Location: Left mid. Size: 1.2 x 0.7 x 1.0 cm, volume 0.45 mL. Previously: New since the previous study. Nodule characteristics: Composition: Solid/almost completely solid (2). Echogenicity: Isoechoic (1). Shape: Not taller than wide (0). Margins: Ill-defined (0). Echogenic Foci: None (0). ACR TI-RADS total points: 3 ACR TI-RADS category: 3 NODES: No lymphadenopathy is seen in the tissue surrounding the thyroid gland. US/US thyroid IMPRESSION: Routine sonographic surveillance of left mid nodule. US Thyroid: 06/20/2021 Right Thyroid Lobe: 5.5 x 1.8 x 1.9 cm, volume 9.8 mL. Previously 5.3 x 2.3 x 1.7 cm, volume 10.8 mL. Parenchyma: The gland echotexture is heterogeneous. Thyroid vascularity is normal. Left Thyroid Lobe: 4.9 x 1.1 x 1.8 cm, volume 5.1 mL. Previously 4.1 x 1.5 x 1.7 cm, volume 5.5 mL. Parenchyma: The gland echotexture is homogeneous. Thyroid vascularity is normal. Isthmus: 0.3 cm in maximum AP dimension. Previously 0.5 cm. There are multiple nodules. Largest nodules are measured. Estimated total number of nodules greater than or equal to 1 cm: 3. Portable Machine Cutter nodules are described as follows: 1.? Location: Right mid. ?? ? Size: 1.9 x 0.96 x 1.6 cm, volume 1.6 mL. ?? ? Previously: 1.4 x 0.9 x 1.3 cm, volume 1.2 mL. ?? ? Nodule characteristics: ?? ? Composition: Mixed cystic and solid (1). ?? ? Echogenicity: Anechoic (0). ?? ? Shape: Not taller than wide (0). ?? ? Margins: Lobulated (2). ?? ? Echogenic Foci: None (0). ? ACR TI-RADS total points: 3 ?? ? ACR TI-RADS category: 3 ? Significant change in size (>/= 20% in 2 dimensions and minimal increase of 2 mm or 50% or greater increase in volume): ?? ? Change in features: ?? ? Change in ACR TI-RADS risk category: 2.? Location: Right mid. ?? ? Size: 1.1 x 0.8 x 1.3 cm, volume 0.6 mL. ?? ? Previously: 2.4 x 1.2 x 2.4 cm, volume 3.61 mL. ?? ? Nodule characteristics: ?? ? Composition: Solid (2). ?? ? Echogenicity: Hyperechoic (1). ?? ? Shape: Not taller than wide (0). ?? ? Margins: Smooth (0). ?? ? Echogenic Foci: None (0).? ACR TI-RADS total points: 3 ?? ? ACR TI-RADS category: 3 ? Significant change in size (>/= 20% in 2 dimensions and minimal increase of 2 mm or 50% or greater increase in volume): ?? ? Change in features: ?? ? Change in ACR TI-RADS risk category: 3.? Location: Right superior. ?? ? Size: 1.3 x 1.3 x 1.2 cm, volume 1.06 mL. ?? ? Previously: 1.7 x 1.4 x 1.4 cm, volume 1.7 mL. ?? ? Nodule characteristics: ?? ? Composition: Solid (2). ?? ? Echogenicity: Isoechoic (1). ?? ? Shape: Not taller than wide (0). ?? ? Margins: Ill-defined (0). ?? ? Echogenic Foci: None (0). ? ACR TI-RADS total points: 3 ?? ? ACR TI-RADS category: 3 ? Significant change in size (>/= 20% in 2 dimensions and minimal increase of 2 mm or 50% or greater increase in volume): ?? ? Change in features: ?? ? Change in ACR TI-RADS risk category: 4.? Location: Left mid. ?? ? Size: 0.4 x 0.3 x 0.4 cm, volume 0.03 mL. ?? ? Previously: 0.7 x 0.4 x 0.5 cm, volume 0.07 mL. ?? ? Nodule characteristics: ?? ? Composition: Cystic(0). ?? ? ACR TI-RADS total points: 0 ?? ? ACR TI-RADS category: 1 ? Significant change in size (>/= 20% in 2 dimensions and minimal increase of 2 mm or 50% or greater increase in volume): ?? ? Change in features: ?? ? Change in ACR TI-RADS risk category: 5.? Location: Left inferior. ?? ? Size: 0.4 x 0.3 x 0.4 cm, volume 0.04 mL. ?? ? Previously: 0.4 x 0.2 x 0.4 cm, volume 0.01 mL. ?? ? Nodule characteristics: ?? ? Composition: Mixed cystic and solid (1). ?? ? Echogenicity: Isoechoic (1). ?? ? Shape: Not taller than wide (0). ?? ? Margins: Ill-defined (0). ?? ? Echogenic Foci: Punctate echogenic foci (3).? ACR TI-RADS total points: 5 ?? ? ACR TI-RADS category: 4 ? Significant change in size (>/= 20% in 2 dimensions and minimal increase of 2 mm or 50% or greater increase in volume): ?? ? Change in features: ?? ? Change in ACR TI-RADS risk category: NODES: No lymphadenopathy is seen in the tissue surrounding the thyroid gland. There are small left cervical lymph nodes. These are normal in size and demonstrate normal ultrasound morphology and flow. Labs: Laboratory Tests 08/27/22 10:05 TSH 0.45 Free T4 1.03 PFSH Medical History Pericardial cyst CHF (congestive heart failure) CHF (congestive heart failure) Hypoglycemia unawareness associated with type 2 diabetes mellitus Vitamin D deficiency Diabetic neuropathy associated with type 2 diabetes mellitus CKD (chronic kidney disease) stage 3, GFR 30-59 ml/min Hypertension Dyslipidemia prison (current) use of insulin Non-toxic multinodular goiter Diabetes type 2, uncontrolled Surgical History Hx of biopsy AICD (automatic cardioverter/defibrillator) present Hx of appendectomy Hx of hysterectomy Family History Father Alcoholism Diabetes Mother Arthritis Hypertension Social History Household Members: None Household Members Other:: Lives by self Housing: Apartment Do you presently have visiting nurse or other home services: Yes Unable to assess alcohol history related to: Unknown Alcohol intake: current Alcohol intake frequency: does not drink Patient Tobacco Use Status: Never used Tobacco e-Cigarette/Vaping Use: Never Used Second Hand Smoke Exposure: No service: No Physical Exam Vital Signs: BMI result Body Mass Index 26.4 Assessment & Plan Assessment & Plan (1) Non-toxic multinodular goiter: Code(s): E04.2 - Nontoxic multinodular goiter Category: Medical Plan: 69 YO Female with a PMHx of a NTMNG status post right hemithyroidectomy 11/10/[address] 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 04/07/2023: Most recent thyroid ultrasound showed a left superior 0.4 cm cystic nodule, a left superior medial 0.8 cm cyst, and a left mid 1 cm solid, hypoechoic TR 4 category nodule, another left mid 1.2 cm solid, isoechoic TR 3 category nodule. The last two meet criteria for follow up. 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 While thyroid surgery is required to distinguish NIFTP from the encapsulated with invasive subtype, therapy beyond thyroid lobectomy is usually not required (ie, thyroid-stimulating hormone [TSH] suppression and radioactive iodine ablation is not required ? With respect to the follow?up intensity for patients subsequent to neoplasm with papillary like nuclear features (NIFTP) resection. NIFTP is understood as a premalignant lesion Usually we recommend that, until longer term experience with this new entity is gained, the patient should still be followed yearly with neck exam. One can also consider annual measurements of thyroglobulin (Tg) and occasional imaging by neck ultrasonography (US) howeevr guidelines are unclear about this as of yet. Plan: -ordered ultrasound of the thyroid -follow up in 8 weeks to discuss results Plan See above Orders: Orders US thyroid Today E04.2 - Nontoxic multinodular goiter Patient Instructions: Do ultrasound of the thyroid, somebody is going to call you to schedule this -follow up in 8 weeks to discuss results Hazte phoebe ecograf?a de tiroides. Te llamar?n para programarla. - Seguimiento en 8 semanas para analizar los resultados. Coding Level of Care Code Est Pt Level 3 (26244) Diagnoses Non-toxic multinodular goiter E04.2
[2024-10-17 14:58] VITALS: BP 100/68; PULSE 74; O2SAT 100; BMI 26.4
--- OUTSIDE RECORDS SUMMARY | 2024-10-17 17:04 | XMS_ITS | Encounter Summary ---
Author Organization [facility] Address [address] [place] [address] [address] [place] [address] Care Team Providers Care Six Sigma Black Trainer Name Role Phone Unavailable Primary Care Provider [...]
--- OUTSIDE RECORDS SUMMARY | 2024-10-17 17:04 | XMS_ITS | Encounter Summary ---
Author Organization [facility] Address [address] [place] [address] Phone Care Team Providers Care Budget Specialist Name Role Phone Catherine Cuellar MD Primary Care Provider [phone] Reason for Visit * Reason Comments Med Refill Encounter Details Date Type Department Care Team (Late st Contact Info) Description 05/08/2022 Refill [facility] [address] [place] [address] Talib Larkin MD Social History [...] on filedocumented in this encounter Care Teams Budget Specialist Relationship Specialty Start Date End Date Catherine Cuellar MD PCP - General 08/13/20 documented as of this encounter
--- OUTSIDE RECORDS SUMMARY | 2024-10-17 17:04 | XMS_ITS | Clinical Summary ---
Author Organization [address] [place] [address] Address [address] [place] [address] Phone Care Team Providers Care Md Pediatric Allergist Name Role Phone Cordelia Moraes Primary Care Provider Allergies Active Allergy Reactions Criticality Noted Date Comments Codeine 12/16/2017 All pain killers Itching Diphenhydramine Hcl Hives 08/18/2022 Hydrocodone 01/17/2020 Iodinated Contrast Media 09/24/2021 Iodinated contrast contraindicated if possible. CKD Lisinopril Cough 01/21/2018 Metoclopramide Hcl 01/21/2018 No reaction documented. Nsaids (Non-Steroidal Anti-Inflammatory Drug) 09/24/2021 Due to renal issues Oxycodone-Acetaminophen 01/28/2018 Pollen Extracts Itching 09/05/2021 Medications silver sulfADIAZINE (SILVADENE, SSD) 1 % cream Apply topically 1 (one) time each day. to nail bed 4 Active cholecalciferol (VITAMIN D-3) 50 mcg (2,000 unit) capsule Take 1 capsule (2,000 Units total) by mouth 1 (one) time each day. 3 Active diclofenac (VOLTAREN) 1 % topical gel Apply 4 g topically 2 (two) times a day. 3 Active famotidine (PEPCID) 40 mg tablet Sig: TOME MONA TABLETA TODOS [place]RI[place] 3 Active fluticasone propionate (FLONASE) 50 mcg/actuation nasal spray Administer 1 spray into each nostril 1 (one) time each day if needed for rhinitis or allergies. 3 Active ferrous sulfate 325 mg (65 mg elemental iron) tablet Take 1 tablet (325 mg total) by mouth 2 (two) times a day. 3 Active apixaban (ELIQUIS) 5 mg tablet Take 1 tablet (5 mg total) by mouth 2 (two) times a day. 4 Active aspirin 81 mg EC tablet Take 1 tablet (81 mg total) by mouth 1 (one) time each day. 3 Active acetaminophen (TYLENOL) 500 mg tablet Take 1 tablet (500 mg total) by mouth every 6 (six) hours if needed for mild pain. 2 Active FREESTYLE LANCETS MISC Apply 1 Units topically 3 (three) times a day. Use to test blood sugar 3 Active insulin glargine (Lantus Solostar U-100 Insulin) 100 unit/mL (3 mL) injection pen Inject 10 Units under the skin 1 (one) time each day. Active furosemide (LASIX) 40 mg tablet Take 1 tablet (40 mg total) by mouth 2 (two) times a day. 2 Active gabapentin (NEURONTIN) 600 mg tablet Take 1 tablet (600 mg total) by mouth 3 (three) times a day. 3 Active methocarbamoL (ROBAXIN) 750 mg tablet Take 1 tablet (750 mg total) by mouth 2 (two) times a day if needed for muscle spasms. 3 Active triamcinolone (KENALOG) 0.5 % cream Apply topically 2 (two) times a day. TO AFFECTED AREA FOR 2 WEEKS. THEN ON AND OFF NEEDED FOR FLARES. 3 Active pen needle, diabetic 32 gauge x 5/32 needle 1 Active loratadine (CLARITIN) 10 mg tablet Take 1 tablet (10 mg total) by mouth 1 (one) time each day. 3 Active hyaluronate sodium (SODIUM HYALURONATE IO) Inject 60 mg into the joint 1 (one) time. for 2 doses. Bilateral knee osteoarthritis. Last Durolane injection to both knees was in 09/2022. Patient would like these repeated. Sodium Hyaluronate 60 MG/3ML Prefilled Syringe 3 Active sacubitriL-valsa rtan (ENTRESTO) 97-103 mg per tablet Take 1 tablet by mouth 2 times daily. for 30 days 4 Active linaGLIPtin (Tradjenta) 5 mg tablet Take 1 tablet (5 mg total) by mouth 1 (one) time each day. 4 Active Active Problems Problem Noted Date Diagnosed Date Chronic HFrEF (heart failure with reduced ejection fraction) 08/01/2024 Overview (08/01/2024): Dr. Jens Rosas, [facility] cardiology Dilated cardiomyopathy 08/01/2024 Overview (08/01/2024): 05/2017 EF 40% Dr. Jens Rosas -[facility] cardiology. AICD Fibromyalgia 08/01/2024 GERD (gastroesophageal reflux disease) HTN (hypertension) 08/01/2024 Hypercholesteremia 08/01/2024 Chronic pain of both knees 05/03/2019 CKD stage 3 due to type 2 diabetes mellitus 08/03 Overview (08/01/2024): Cr 2.0 on 07/29/18 - outside labs by Endo. Referred by Endo to Dr Cornel Cutler ([facility]). Latest Cr 06/06/19 1.14, Hgb 10.3 Anemia 01/21/2018 Overview (08/01/2024): Chronic. 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 08/03/2007 Immunizations Name Administration Dates Next Due Influenza trivalent, 0.5mL, preservative free (Fluarix; FluLaval; Fluzone) ages 6mo and older (Afluria) 3 years and older 10/17/2019 Influenza trivalent, with pr eservative (Fluzone; Afluria) 6mo and older 05/28/2017 Moderna SARS-CoV-2 COVID-19, mRNA, LNP-S, preservative free 09/30/2020 Pneumococcal polysaccharide 23 valent (Pneumovax 23) 2yo and older 02/16/2009 Tdap Tetanus diptheria acell ular pertussis (Boostrix; Adacel) 7yo and older 02/16/2009 Surgical History Surgery Date Site/Laterality Comments HYSTERECTOMY PROCEDURE: HISTORICAL HYSTERECTOMY; COMMENT: right salpingectomy BLADDER SUSPENSION PROCEDURE: HISTORICAL BLADDER SUSPENSION CHOLECYSTECTOMY PROCEDURE: HISTORICAL CHOLECYSTECTOMY APPENDECTOMY PROCEDURE: HISTORICAL APPENDECTOMY OTHER SURGICAL HISTORY PROCEDURE: DE BIOPSY THYROID PERCUTANEOUS CORE NEEDLE PACEMAKER IMPLANT PROCEDURE: HISTORICAL PACEMAKER; COMMENT: cardiomyopathy Medical History Medical History Date Comments HTN (hypertension) DX:HTN (hyper tension) Hypercholesteremia DX:Hyperchole steremia 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 ([facility]) 2007 DX:Diabetes type 2 w ith atherosclerosis of arteries of extremities ([facility]) Fibromyalgia DX:Fibromyalgia Dilated cardiomyopathy ([facility]) DX:Dilated cardiomyopathy ([facility]); COMMENT: 05/2017 EF 40% CHF (congestive heart failur e) ([facility]) DX:CHF (congestive heart cheryl lure) ([facility]) Gout 01/21/2018 DX:Gout; COMMENT : Left toe Depression 01/21/2018 DX:Depression Type 2 diabetes mellitus wit h neurological manifestations ([facility]) 01/21/2018 DX:Type 2 diabet es mellitus with neurological manifestations ([facility]) Diabetic peripheral neuropat hy ([facility]) 01/21/2018 DX:Diabetic peripheral neuro cruz ([facility]) Chronic low back pain 01/21/2018 DX:Chronic low back pain Constipation 01/21/2018 DX:Constipation Eczema 01/21/2018 DX:Eczema GERD (gastroesophageal reflux disease) DX:GERD (gastroesophageal reflux disease) Plantar fasciitis of left foot 01/21/2018 D X:Plantar fasciitis of left foot Insomnia 01/21/2018 DX:Insomnia Herpes zoster 01/21/2018 DX:Herpes zoster ; COMMENT: 02/2016 Anemia 01/21/2018 DX:Anemia; COMME NT: chronic Cardiac defibrillator in place 01/21/2018 D X:Cardiac defibrillator in place Chronic pain of both knees 05/03/2019 DX:Ch ronic pain of both knees Family History Medical History Relation Name Comments Diabetes Aunt paternal Diabetes Father alcoholism Arthritis Mother hypertension Diabetes Paternal Grandmother Diabetes Sister Relation Name Status Comments Aunt Father Mother Paternal Grandmother Sister Social History Tobacco Use Types Packs/Day Years Used Date Smoking Tobacco: Never Smokeless Tobacco: Never Alcohol Use Standard Drinks/Week Comments No 0 (1 standard drink = 0.6 oz pur e alcohol) Comments Unknown Sex and Gender Information Value Date Recorded Sex Assigned at Not on file Legal Sex Female 12:59 AM EST Gender Identity Not on file Sexual Orientation Not on file Obstetrics History Last Filed Vital Signs Vital Sign Reading Time Taken Comments Blood Pressure 110/62 08/20/2023 1:10 PM EST L A rm Pulse 77 08/20/2023 1:10 PM EST Temperature - - Respiratory Rate - - Oxygen Saturation - - Inhaled Oxygen Concentration - - Weight 57.6 kg (127 lb) 12/23/2023 3:10 PM EDT Height 144.8 cm (4' 9 ) 12/23/2023 3:10 PM EDT Body Mass Index 27.48 12/23/2023 3:10 PM EDT Plan of Treatment Upcoming Encounters Date Type Department Care Team (Late st Contact Info) Description 12/20/2024 1:15 PM EDT Consult Orthopedic Surgery - [place] [address] [facility] [address] [place] [id number] Sea Mata DPM [address] [address] Health Maintenance Due Date Last Done Comments Breast Cancer Screening 1955 Diabetes: Annual Foot Exam 1966 Diabetes: Annual Retina Eye Exam 1966 Zoster Vaccines (1 of 2) 2006 Pneumococcal Vaccine: 50+ Years (2 of 2 - PCV) 02/16/2010 02/16/2009 RSV Immunization Patients 60 + Years Old (1 - Risk 60-74 years 1-dose series) 2016 DTaP,Tdap,and Td Vaccines (2 - Td or Tdap) 02/16/2019 02/16/2009 COVID-19 Vaccine (3 - Modern a risk series) 11/26/2020 10/29/2020, 09/30/2020 Falls Risk Assessment 07/12/2022 Osteoporosis Screening (Bone Density Screening) 07/12/2022 Social Influencers of Health Screening 07/12/2022 Diabetes: Annual Urine Albumin-Creatinine Ratio (uACR) 07/19/2022 12/03/2018 Diabetes: Blood Sugar Contro l Test (HGBA1C) 07/19/2022 04/29/2019 Diabetes: Annual GFR (Glomerular Filtration Rate) 09/30/2022 09/30/2021 Hypertension/CHF/CAD Annual BMP Blood Test 09/30/2022 09/30/2021 Influenza Vaccine (#1) 2024 , 05/28/2017 Depression Screening 09/30/2025 09/30/2024 Colorectal Cancer Screening: Colonoscopy 11/05/2025 11/05/2020 Cholesterol Screening (Lipid Panel) 09/30/2026 09/30/2021 Hepatitis C Screening Completed 12/16/2017 HIB Vaccines Aged Out No longer eligi [...] on patient's age to complete this topic MMR Vaccines Aged Out No longer eligi ble based on patient's age to complete this topic Meningococcal ACWY Vaccine Aged Out N o longer eligible based on patient's age to complete this topic Meningococcal B Vacine Aged Out No lo nger eligible based on patient's age to complete this topic RSV Immunization Patients Under 20 months Aged Out No longer eligible b ased on patient's age to complete this topic Varicella Vaccines Aged Out No longer eligible based on patient's age to complete this topic Procedures Procedure Name Priority Date/Time Associated Diagnosis Comments HM ANNUAL BMP BLOOD TEST Routine 09/30/2021 LIPID PANEL Routine 09/30/2021 COLONOSCOPY Routine 11/05/2020 HEMOGLOBIN A1C Routine 04/29/2019 URINE ALBUMIN CREATININE RATIO Routine 12/03/2018 HEPATITIS C SCREENING Routine 12/16/2017 from Last 3 Months or Most Recently Relevant to Health Maintenance Results * Annual BMP Blood Test (09/30/2021) Pathologist [facility] Annual BMP Blood Test abstracted Result [facility] Provider HEALTH MAINTENANCE Final Result * (ABNORMAL) Lipid panel (09/30/2021) [facility] LDL/HDL Ratio 3 0 - 4 Triglycerides 181(A) 0 - 150 mg/dL Cholesterol 148 0 - 200 mg/dL HDL 45 >=40 mg/dL LDL Cholesterol 68 0 - 100 mg/dL Blood Venous blood specimen / Unknown Result [facility] Provider LAB BLOOD ORDERABLES Dagmar l Result * Colonoscopy (11/05/2020) [facility] Colonoscopy normal, abstracted Anatomical Region Laterality Modality Other Result [facility] Provider HEALTH MAINTENANCE Final Result * Hemoglobin A1c (04/29/2019) [facility] Hemoglobin A1C 6.0 <=6.5 % Blood Venous blood specimen / Unknown Result [facility] Provider LAB BLOOD ORDERABLES Dagmar l Result * Urine Albumin Creatinine Ratio (12/03/2018) [facility] Urine Albumin Creatinine Ratio abstracted [facility] Provider HEALTH MAINTENANCE Final Result * Hepatitis C Screening (12/16/2017) [facility] Hepatitis C Screening abstracted us Historical Provider HEALTH MAINTENANCE Final Result from Last 3 Months or Most Recently Relevant to Health Maintenance Insurance [employer] MEDICARE Member Subscriber Plan / Payer (Ef fective 2021-Present) Name:Lida Peoples Relation to Subscriber:Self Name:Lurdes Peoplesarita Payer ID:[id number] Group ID:[id number] Type:Not on file Address: [address] [place] [address] MEDICAID - [place] Care Teams Md Pediatric Allergist Relationship Specialty Start Date End Date Cordelia Moraes PA [address] [place] [address] PCP - General 10/17/24
--- OUTSIDE RECORDS SUMMARY | 2024-10-17 17:04 | XMS_ITS | Clinical Summary ---
Author Organization [facility] Address [address] [place] [address] [place] [address] Phone Care Team Providers Care Developmental Therapist Name Role Phone Catherine Cuellar MD Primary Care Provider [phone] Allergies Active Allergy Reactions Criticality Noted Date [...] failure 11/30/2020 Overview (11/30/2020): Dr. Jens Rosas, [facility] cardiology Hypertensive disorder 11/30/2020 Hypercholesterolemia 11/30/2020 Gastroesophageal reflux disease 11/30/2020 Fibromyalgia 11/30/2020 Ectopic kidney 11/30/2020 Dilated cardiomyopathy 11/30/2020 Overview (11/30/2020): 05/2017 EF 40% Dr. Jens Rosas -[facility] cardiology. AICD Proteinuria 11/30/2020 Renal disorder due to type 2 diabetes mellitus 0 11/30/2020 Pain of knee region 05/03/2019 Chronic kidney disease stage 3 due to type 2 diabetes mellitus 08/17/2018 Overview (11/30/2020): Cr 2.0 on 07/29/18 - outside labs by Endo. Referred by Josue to Dr Cornel Cutler ([facility]). Latest Cr 06/06/19 1.14, Hgb 10.3 Anemia [...] patient's age to complete this topic Insurance [facility] ([id number]) [facility] ([id number]) Care Teams Developmental Therapist Relationship Specialty Start Date End Date Catherine Cuellar MD PCP - General 08/13/20
--- OUTSIDE RECORDS SUMMARY | 2024-10-17 17:04 | XMS_ITS | Clinical Summary ---
Author Organization [facility] Address [address] [place] [address] Care Team Providers [employer] Name Role Phone Cordelia Moraes PA-C Primary Care Provider [phone] Source Comments PLEASE NOTE, if this patient [...] by mouth nightly at bedtime (Prescribed by [facility]) 024 Active alcohol swabsIndications :Type 2 diabetes mellitus with stage 3a chronic kidney disease, with long-term current use of insulin ([facility]) Use to test blood glucose three times daily. 100 Each 11 024 Active silver sulfADIAZINE (SILVADENE) 1 % cream [facility]/pharmacy #[id number] - [place], [place] [phone] 50 g Refills RemaininDays Supply: 30Sig: APPLY TOPICALLY TO NAIL BED DAILYSource: Surescripts (Fill History, Ambulatory)Autho rized by: JESSICA KAYE Active triamcinolone (KENALOG) 0.5 % cream APPLY TO AFFECTED AREA TWICE DAILY FOR 2 WEEKS. THEN ON AND OFF NEEDED FOR FLARES. 15 g 1 Active metoprolol succinate XL (TOPROL-XL) 100 mg 24 hr tabletIndication s:Heart failure with reduced ejection fraction, NYHA class III ([facility]) Take 1 Tablet by mouth once daily (Prescribed by [facility]) Active spironolactone (ALDACTONE) 25 mg tabletIndication s:Heart failure with reduced ejection fraction, NYHA class III ([facility]) Take 1 Tablet by mouth once daily (Prescribed by [facility]) Active TRADJENTA 5 mg tabIndications:T ype 2 diabetes mellitus with stage 3a chronic kidney disease, with long-term current use of insulin ([facility]) Take 1 Tablet by mouth every morning For diabetes 90 Tablet 1 Active blood-glucose meter,continuous (FREESTYLE CLIF 3 READER) miscIndications: Type 2 diabetes mellitus with stage 3a chronic kidney disease, with long-term current use of insulin ([facility]) Use to test blood glucose continuously. (Freestyle Clif 3 reader) 1 Each Active blood-glucose sensor (FREESTYLE CLIF 3 PLUS SENSOR) deviIndications: Type 2 diabetes mellitus with stage 3a chronic kidney disease, with long-term current use of insulin ([facility]) Place 1 sensor to back of upper arm every 15 days. Use to monitor blood sugar continuously (Freestyle Clif 3 Plus) 2 Each Active BD LISA 2ND GEN PEN NEEDLE 32 gauge x 32 ndleIndications: Type 2 diabetes mellitus with stage 3b chronic kidney disease, with long-term current use of insulin ([facility]) 1 to 3 (one to three) times daily Use to inject insulin as per order 100 Each Active aspirin [address] tablet TOME MONA TABLETA TODOS LOS D 90 Tablet 2 Active lancets (FREESTYLE LANCETS) 28 gaugeIndications :Type 2 diabetes mellitus with stage 3a chronic kidney disease, with long-term current use of insulin ([facility]) Use to test blood glucose three times daily. (Freestyle Lancets) 100 Each 11 024 Active blood sugar diagnostic stripsIndication s:Type 2 diabetes mellitus with stage 3a chronic kidney disease, with long-term current use of insulin ([facility]) Use to test blood glucose three times daily. (Freestyle Lite) 100 Each 11 024 Active fluticasone (FLONASE) 50 mcg/actuation nasal spray Place 1 [place] in both nostrils once daily NEEDED FOR RHINITIS OR ALLERGIES!! 16 g 2 024 Active cholecalciferol (VITAMIN D-3) 50 mcg (2,000 unit) capsule TOME 1 CAPSULA POR VIA ORAL TODOS [place] 90 Capsule 1 025 Active apixaban (ELIQUIS) 5 mg tabIndications:D ilated cardiomyopathy ([facility]),Implan table cardioverter-def ibrillator (ICD) in situ Take 1 Tablet by mouth 2 (two) times Daily 180 Tablet 1 025 Active omeprazole (PRILOSEC) [address] capsule TOME MONA CAPSULA TODOS [place] EN LA MANANA ANTES DEL DESAYUNO 90 Capsule 1 025 Active allopurinoL (ZYLOPRIM) 100 mg tabletIndication s:Idiopathic gout, unspecified chronicity, unspecified site TOME 1 TABLETA POR VIA ORAL TODOS [place] 90 Tablet 025 Active ENTRESTO 24-26 mg tabIndications:H eart failure with reduced ejection fraction, NYHA class III ([facility]) Take 1 Tablet by mouth 2 (two) times daily (Prescribed by [facility]) 60 Tablet 2 025 Active gabapentin (NEURONTIN) 600 mg tabletIndication s:Fibromyalgia TOME MONA TABLETA ALISTAIR VECES AL ANANTH 270 Tablet 025 Active DAILY-MOSES, WITH FOLIC ACID, 400 mcg tabIndications:C hronic kidney disease, stage 3b ([facility]) TOME 1 TABLETA POR VIA ORAL TODOS [place] 90 Tablet 1 025 Active furosemide (LASIX) 40 mg tabletIndication s:Heart failure with reduced ejection fraction, NYHA class III ([facility]) TOME 1 TABLETA POR VIA ORAL DOS VECES AL ANANTH 180 Tablet 1 025 Active empagliflozin (JARDIANCE) 25 mg tabIndications:T ype 2 diabetes mellitus with stage 3b chronic kidney disease, with long-term current use of insulin ([facility]),Stage 3 chronic kidney disease due to type 2 diabetes mellitus ([facility]),Heart failure with reduced ejection fraction, NYHA class III ([facility]) Take 1 Tablet by mouth every morning (Take with plenty of water throughout the day) stop 10 mg 30 Tablet 11 025 Active loratadine (CLARITIN) 10 mg tablet TOME 1 TABLETA POR VIA ORAL TODOS [place] CUANDO SEA NECESARIO FOR ALLERGIES 90 Tablet 025 Active methocarbamoL (ROBAXIN) 750 mg tabletIndication s:Fibromyalgia TAKE 1 TABLET BY MOUTH 2 TIMES DAILY NEEDED FOR OTHER (SPASM). 90 Tablet 025 Active zolpidem (AMBIEN) 5 mg tabletIndication s:Insomnia, unspecified type Take 1 Tablet by mouth nightly at bedtime NEEDED FOR SLEEP!! 30 Tablet 025 Active multivitamin with folic acid (DAILY-MOSES, WITH FOLIC ACID,) 400 mcg tabIndications:C hronic kidney disease, stage 3b ([facility]) TOME 1 TABLETA POR VIA ORAL TODOS [place] 90 Tablet 1 024 2024 Discontinued LANTUS SOLOSTAR U-100 INSULIN 100 unit/mL (3 mL) penIndications:T ype 2 diabetes mellitus with stage 3b chronic kidney disease, with long-term current use of insulin ([facility]) INJECT 10 UNITS SUBCUTANEOUSLY DAILY 15 Pen 1 024 2024 Discontinued(T herapy completed/Not needed) ENTRESTO 24-26 mg tabIndications:H eart failure with reduced ejection fraction, NYHA class III ([facility]) Take 1 Tablet by mouth 2 (two) times daily (Prescribed by [facility]) 024 2024 Discontinued(R eorder (E-Cancel Not Sent)) empagliflozin (JARDIANCE) 10 mg tabIndications:T ype 2 diabetes mellitus with stage 3a chronic kidney disease, with long-term current use of insulin ([facility]),Heart failure with reduced ejection fraction, NYHA class III ([facility]) Take 1 Tablet by mouth every morning stop Tradjenta 5 mg 90 Tablet 1 024 2024 Discontinued(Q uantity/Dosage and/or Sig change) gabapentin (NEURONTIN) 600 mg tabletIndication s:Fibromyalgia TOME MONA TABLETA ALISTAIR VECES AL ANANTH 270 Tablet 2024 Discontinued(R eorder (E-Cancel Not Sent)) furosemide (LASIX) 40 mg tabletIndication s:Heart failure with reduced ejection fraction, NYHA class III ([facility]) Take 1 Tablet by mouth 2 (two) times daily 180 Tablet 1 024 2024 Discontinued methocarbamoL (ROBAXIN) 750 mg tabletIndication s:Fibromyalgia TAKE 1 TABLET BY MOUTH 2 TIMES DAILY NEEDED FOR OTHER (SPASM). 90 Tablet 024 2024 Discontinued(R eorder (E-Cancel Not Sent)) loratadine (CLARITIN) 10 mg tablet TOME 1 TABLETA POR VIA ORAL TODOS [place] CUANDO SEA NECESARIO FOR ALLERGIES 90 Tablet 2024 Discontinued azithromycin (ZITHROMAX) 250 mg tabletIndication s:Acute suppurative otitis media of right ear without spontaneous rupture of tympanic membrane, recurrence not specified Take 2 tab PO today then take 1 tab PO QD x4d 6 Tablet 2024 Discontinued(T herapy completed/Not needed) zolpidem (AMBIEN) 5 mg tabletIndication s:Insomnia, unspecified type Take 1 Tablet by mouth nightly at bedtime NEEDED FOR SLEEP!! 30 Tablet 025 2024 Discontinued(R eorder (E-Cancel Not Sent)) Active Problems Problem Noted Date Diagnosed Date Carpal tunnel syndrome of right wrist 09/30/2024 Degenerative tear of medial meniscus of right kn ee 10/11/2023 History of appendectomy 12/30/2022 12/31/19 Hx of cholecystectomy 12/30/2022 12/30/2022 Cardiac pacemaker 12/30/2022 12/30/2022 Overview (06/21/2024): 06/14/24 at [facility] Plan ~Labs today ~Refer back to [...] messaged for pt's arm MRI 05/12/24 at [facility] Plan ~24-Holter monitor to assess PVC burden 04/08/24 at [facility] Plan ~Reduce Lasix to 20 mg as needed weight gain greater than 3 pounds / 1-2 days, increased leg swelling, increased shortness of breath ~Stop carvedilol 12.5 mg twice daily and start metoprolol XL 100 mg daily ~Pt encouraged to hydrate in the range of 8 glasses fluid daily ~Repeat Sleep study in-lab ~Message to Device to assess PVC burden 03/04/24 at [facility] Plan: - increase entresto to 97-103mg BID - pt will monitor wt at home and repeat labs in a week, if wt has not improved would double lasix dose for 3-4 days - f/u in 1 months - would repeat ekg and if QRS wide with LBBB pattern ask EP if we need to 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 Heart [...] size/function. PASP wnl. Trace pulmonic regurg. CPET 2016: max VO2 37% of predicted 04/19: LVEF [...] reduced e jection fraction, NYHA class III ([facility]) 12/30/2022 12/30/2022 Overview (10/03/2024): 08/01/24 at [facility] NYHA class III stage C - patient was on metoprolol 200 mg, but current taking 100 mg. Systolic BP in the 90s, recommended to drink at least 64 ounce fo fluids per day, may increase metoprolol at follow-up appt. Asymptomatic from PVCs Continues to have dyspnea with minimal exertion which is multifactorial given deconditioning and obesity Maxed on GDMT, but if BP improved, can increase in future Checks labs, consider cardiopulmonary exercise test for risk stratification 06/14/24 at [facility] Labs today Refer back to EP for PVC burden of 30%, frequent runs of ventricular couplets and nonsustained VT, variable LBBB Per Dr. Vazquez: Patient has a non-MRI conditional single chamber ICD, is not pacemaker-dependent and does not have any abandoned leads. They will be able to obtain an MRI after appropriate pre-MRI settings are programmed into the device by the EP lab staff --Device clinic messaged for pt's arm MRI 05/12/24 at [facility] 24-Holter monitor to assess PVC burden 04/08/24 at [facility] Reduce Lasix to 20 mg as needed weight gain greater than 3 pounds / 1-2 days, increased leg swelling, increased shortness of breath Stop carvedilol 12.5 mg twice daily and start metoprolol XL 100 mg daily Pt encouraged to hydrate in the range of 8 glasses fluid daily Repeat Sleep study in-lab Message to Device to assess PVC burden 03/04/24 at [facility] Plan: increase entresto to 97-103mg BID Pt will monitor wt at home and repeat labs in a week, if wt has not improved would double lasix dose for 3-4 days F/u in 1 months - would repeat ekg and if QRS wide with LBBB pattern ask EP if we need to 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 Heart [...] 12/30/2022 12/30/2022 Mild vaginal dysplasia 12/30/2022 3 Polyp of colon 12/30/2022 12/30/2022 Overview (12/30/2022): 02/14 History of lobectomy of thyroid 12/30/2022 Overview (12/30/2022): Post op right lobectomy DOS 11/10/22 at [facility]. Anemia of chronic renal failure 11/30/2020 12/30/2022 Dilated cardiomyopathy (HCC-CMS) 11/30/2020 12/30/2022 Overview (10/03/2024): 08/01/24 at [facility] NYHA class III stage C - patient was on metoprolol 200 mg, but current taking 100 mg. Systolic BP in the 90s, recommended to drink at least 64 ounce fo fluids per day, may increase metoprolol at follow-up appt. Asymptomatic from PVCs Continues to have dyspnea with minimal exertion which is multifactorial given deconditioning and obesity Maxed on GDMT, but if BP improved, can increase in future Checks labs, consider cardiopulmonary exercise test for risk stratification 06/14/24 at [facility] Labs today Refer back to EP for PVC burden of 30%, frequent runs of ventricular couplets and nonsustained VT, variable LBBB Per Dr. Vazquez: Patient has a non-MRI conditional single chamber ICD, is not pacemaker-dependent and does not have any abandoned leads. They will be able to obtain an MRI after appropriate pre-MRI settings are programmed into the device by the EP lab staff --Device clinic messaged for pt's arm MRI 05/12/24 at [facility] 24-Holter monitor to assess PVC burden 04/08/24 at [facility] Reduce Lasix to 20 mg as needed weight gain greater than 3 pounds / 1-2 days, increased leg swelling, increased shortness of breath Stop carvedilol 12.5 mg twice daily and start metoprolol XL 100 mg daily Pt encouraged to hydrate in the range of 8 glasses fluid daily Repeat Sleep study in-lab Message to Device to assess PVC burden 03/04/24 at [facility] Plan: increase entresto to 97-103mg BID Pt will monitor wt at home and repeat labs in a week, if wt has not improved would double lasix dose for 3-4 days F/u in 1 months - would repeat ekg and if QRS wide with LBBB pattern ask EP if we need to 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 Heart [...] size/function. PASP wnl. Trace pulmonic regurg. CPET 2016: max VO2 37% of predicted 04/19: LVEF [...] reflux disease 11/30/2020 12/30/2022 Essential hypertension 11/30/2020 Hyperlipidemia LDL goal <100 11/30/2020 Stage 3 chronic kidney disea se due to type 2 diabetes mellitus ([facility]) 08/17/2018 12/30/2022 Overview (09/28/2024): 08/26/24 at [facility] [place] - renal function back to baseline. Serum creatinine 1.28. continue current dose of diuretics. DM - continue SGLT-2 inhibitor, no changes made, maintain A1c <7%, avoid NSAIDs Gout - on allopurinol - does not want to take prednisone, encouraged to follow- up with rheumatology. 04/25/24 at [facility] [place]. Omayra Chapin Echocardiogram showed severely [...] Referred by Endo to Dr Cornel Cutler ([facility]). Latest Cr 06/06/19 1.14, Hgb 10.3 Constipation 01/21/2018 12/30/2022 Eczema 01/21/2018 12/30/2022 Gout 01/21/2018 12/30/2022 Overview (12/30/2022): 2018 Left toe 2018 Left toe Implantable cardioverter-defibrillator (ICD) in situ 01/21/2018 12/30/2022 Overview (10/30/2023): [facility] - 08/25/23 Cardiology Shared Clinical Summary [...] size/function. PASP wnl. Trace pulmonic regurg. CPET 2016: max VO2 37% of predicted 04/19: LVEF [...] Type 2 diabetes mellitus wit h stage 3b chronic kidney disease, with long-term current use of insulin ([facility]) 08/03/2007 12/30/2022 Overview (06/22/2024): DM dx: ~9028-2074 per patient reports Glucometer: Freestyle Clif 3 Plus Current Diabetes RX: Lantus Solostar - inject 8 units daily at bedtime Jardiance 10 mg daily every morning (CKD/HF) MARCO-I/ARB: Entresto 24/26 mg twice daily (prescribed by [facility]) Statin: Atorvastatin 40 mg daily at bedtime (prescribed by [facility]) Pneumococcal vaccine: PPSV23 (02/16/09) Diabetes foot exam: 02/26/23, podiatry referral sent on 10/09/23 by PCP Diabetes retinal exam: 02/09/24 at [facility] No retinopathy Meibomian Gland Dysfunction OU. Hot compresses for 10 minutes 4 times daily. Monitor. Pterygium OS. Mildly inflammed pterygium, consider Lotemax if irritation worsens. Resolved Problems Problem Noted Date Diagnosed Date Resolved Date Obesity 12/30/2022 12/30/2022 09/28/2024 Chronic systolic heart failure ([facility]) 11/30/2020 12/30/2022 10/28/2023 Overview (12/30/2022): Dr. Jens Rosas, [facility] cardiology Dr. Jens Rosas, [facility] Diabetic nephropathy associa tanisha with type 2 diabetes mellitus ([facility]) 11/30/2020 12/30/2022 10/28/2023 Encounters Date Type Department Care Team Description 09/30/2024 1:40 PM EST Office Visit [address] [phone] Moraes, Cordelia, PA-C Annual physical exam (Primary Dx); Immunization due; Type 2 diabetes mellitus with stage 3b chronic kidney disease, with long-term current use of insulin (HCC-CMS); Stage 3 chronic kidney disease due to type 2 diabetes mellitus ([facility]CC[facility]CMS); Essential hypertension; Heart failure with reduced ejection fraction, NYHA class III ([facility]); Carpal tunnel syndrome of right wrist 09/28/2024 1:20 PM EST Office Visit [address] [phone] Reza Britt, Patsy Type 2 diabetes mellitus with stage 3b chronic kidney disease, with long-term current use of insulin ([facility]CC[facility]CMS) (Primary Dx); Stage 3 chronic kidney disease due to type 2 diabetes mellitus ([facility]CC[facility]CMS); Essential hypertension; Heart failure with reduced ejection fraction, NYHA class III (HCC-CMS); Cardiac pacemaker; Hyperlipidemia LDL goal <100; Dilated cardiomyopathy (HCC-CMS) 09/16/2024 Interim Notes [address] [phone] Cheyenne Saucedo [place] from Last 3 Months Immunizations Name Administration [...] Never Smokeless Tobacco: Never Tobacco Cessation:Counseling Given: Yes Alcohol Use Standard Drinks/Week Comments Never 0 [...] Sign Reading Time Taken Comments Blood Pressure 98/64 09/30/2024 1:32 PM EST Pulse 80 09/30/2024 1:32 PM EST Temperature 36.6 ??C (97.9 ??F) 09/30/2024 1:32 PM ES T Respiratory Rate 16 09/28/2024 1:29 PM EST Oxygen Saturation 97% 09/30/2024 1:32 PM EST Inhaled Oxygen Concentration - - Weight 57.8 kg (127 lb 6.4 oz) 09/30/2024 1:32 P M EST Height 149.9 cm (4' 11 ) 09/30/2024 1:32 PM EST Body Mass Index 25.73 09/30/2024 1:32 PM EST Plan of Treatment Upcoming Encounters Date Type Department Care Team (Late st Contact Info) Description 11/24/2024 2:00 PM EDT Office Visit [facility] [address] [place] [address] Reza Britt, PharmD [address] [place] [address] Health Maintenance Due Date Last Done Comments Dental Examination [address] CT Colonography 2001 FIT/gFOBT 2001 Fecal DNA 2001 Flexible Sigmoidoscopy 2001 Imm-Pneumococcal 65+ (2 of 2 - PCV) 02/16/2010 02/16/2009 Bone Density Screening 2021 Imm-Zoster, Recombinant (2 of 2) 04/23/2023 02/26/2023 Diabetes Foot Exam 02/27/2024 02/26/2023 Diabetes Microalbumin (w/Creatinine) 02/27/2024 02/26/2023 Lipid Screening 10/27/2024 10/28/2023, 12/30/2022 [id number] ( season) 2024 10/29/2020, 09/30/2020 Postponed from 04/03/2024 (Patient postponement) Diabetes HbA1c 12/19/2024 06/21/2024, 03/2 02/2024, 12/30/2022 Depression Monitoring 12/28/2024 09/30/2024 , 03/14/2024, 10/09/2023, Additional history exists Imm-Influenza (#1) 2025 10/17/2019, 1 , 06/07/2015, Additional history exists Postponed from 04/03/2024 (Patient postponement) Retinopathy Screening 02/08/2025 02/09/2024 Falls Prevention 05/30/2025 05/30/2024, 02/26/2023 Serum Creatinine 06/21/2025 06/21/2024, , 02/26/2023, Additional history exists Medicare Annual Wellness Visit 09/30/2025 09/30/2024, 03/30/2024, 02/26/2023 Tobacco Screening 09/30/2025 09/30/2024, 10/28/2023 Breast Cancer Screening (Mammogram) 04/27/2026 04/27/2024 Colonoscopy 02/13/2032 02/12/2022 Colorectal Cancer Screening 02/13/2032 Imm-DTaP/Tdap/Td (3 - Td or Tdap) 02/26/2033 02/26/2023, 02/16/2009 Hepatitis C Screening Completed 12/30/2022 Alcohol and Drug Screen Completed 09/28/19, 10/09/2023, 02/26/2023, Additional history exists Procedures Procedure Name Priority Date/Time Associated Diagnosis Comments GLUCOSE, BLOOD BY GLUCOSE MONITORING DEVICE (CLIA WAIVED)POCT Routine 09/28/2024 1:32 PM EST Type 2 diabetes mellitus with stage 3b chronic kidney disease, with long-term current use of insulin ([facility]) MEDICATIONS SCANNED DOCUMENT 09/15/2024 3:00 AM EST PROCEDURE SCANNED DOCUMENT 09/14/2024 3:00 AM EST REFERRAL SCANNED DOCUMENT 08/26/2024 3:00 AM EST LAB SCANNED DOCUMENT 08/26/2024 3:00 AM EST REFERRAL SCANNED DOCUMENT 08/01/2024 3:00 AM EST COMPREHENSIVE METABOLIC PANEL Routine 06/21/2024 2:31 PM EST Type 2 diabetes mellitus with stage 3b chronic kidney disease, with long-term current use of insulin ([facility]) HGA1C W/EAG Routine 06/21/2024 2:31 PM EST Type 2 diabetes mellitus with stage 3b chronic kidney disease, with long-term current use of insulin ([facility]) REFERRAL FOR MAMMOGRAM Routine 3:00 AM EDT Screening mammogram, encounter for REFERRAL TO DIABETIC RETINAL EXAM Routine 02/09/2024 3:00 AM EDT Type 2 diabetes mellitus with stage 3a chronic kidney disease, with long-term current use of insulin ([facility]) LIPIDS W RFLX TO DIRECT LDL Routine 10/28/2023 10:18 AM EDT Preoperative clearance Type 2 diabetes mellitus with stage 3b chronic kidney disease, with long-term current use of insulin ([facility]) MICROALBUMIN/CREATININ E RATIO, URINE, RANDOM Routine 02/26/2023 2:03 PM EDT Type 2 diabetes mellitus with stage 3b chronic kidney disease, with long-term current use of insulin ([facility]) HEPATITIS C AB W/RFLX HCV RNA, QT, RT PCR Routine 12/30/2022 10:40 AM EDT Encounter to establish care from Last 3 Months or Most Recently Relevant to Health Maintenance Results * (ABNORMAL) GLUCOSE, BLOOD BY GLUCOSE MONITORING DEVICE (CLIA WAIVED)POCT (09/28/2024 1:32 PM EST) GLUCOSE 155(A) 70 - 100 mg/dL [facility]- BACK OFFICE POCT Capillary Blood Blood / Unknown 1:32 PM EST Result [facility] Reza Nagellois PharmD LAB - BLOOD DRAW Final Re sult [facility]- BACK OFFICE POCT * MEDICATIONS SCANNED DOCUMENT (09/15/2024 3:00 AM EST) 09/15/2024 3:00 AM EST Reza Nagellois PharmD SCAN MEDS OTHER ORDERS Fi nal Result * PROCEDURE SCANNED DOCUMENT (09/14/2024 3:00 AM EST) 09/14/2024 3:00 AM EST Result [facility] [employer] PA-C SCAN PROCEDURES Final Result * REFERRAL SCANNED DOCUMENT (08/26/2024 3:00 AM EST) Only the most recent of2 resultswithin the time period is included. 08/26/2024 3:00 AM EST Result [facility] Cordelia Moraes PA-C SCAN REFERRAL Final Result * LAB SCANNED DOCUMENT (08/26/2024 3:00 AM EST) 08/26/2024 3:00 AM EST Result [facility] Cordelia Moraes PA-C SCAN LAB Final Result * (ABNORMAL) HGA1C W/EAG (06/21/2024 2:31 PM EST) HEMOGLOBIN A1C 6.3(H) <5.7 % of total H[facility] [employer] Comment: For someone without known diabetes, a [...] diabetes for children. EAG (MG/DL) 134 mg/dL [facility] EAG (MMOL/L) 7.4 mmol/L [facility] [facility] Blood Blood / Unknown 06/21/2024 2 :31 PM EST 06/21/2024 2:32 PM EST Narrative [facility] - 06/22/2024 12:48 PM EST FASTING:NO us Cordelia Moraes PA-C LAB - BLOOD DRAW Final Resul t Topmission [facility] [address] [address], [employer] [facility] [address] [place] [address] * (ABNORMAL) COMPREHENSIVE METABOLIC PANEL (06/21/2024 2:31 PM EST) Pathologist [facility] GLUCOSE 101 65 - 139 mg/dL [facility] [facility] Comment: ?Non-fasting reference interval UREA NITROGEN (BUN) 24 7 - 25 mg/dL [employer] CREATININE (blood) 1.66(H) 0.50 - 1.05 mg/dL [employer] EGFR 33(L) > OR = 60 mL/min/1. 73m2 [facility] BUN/CREATININE RATIO 14 6 - 22 (calc) [facility] [facility] SODIUM 134(L) 135 - 146 mmol/L [employer] [facility] POTASSIUM 4.4 3.5 - 5.3 mmol/L [employer] [facility] [employer] [facility] CHLORIDE 94(L) 98 - 110 mmol/L [employer] [facility] [employer] [facility] CARBON DIOXIDE 28 20 - 32 mmol/L [facility] [facility] CALCIUM 9.6 8.6 - 10.4 mg/dL [facility] [facility] PROTEIN, TOTAL 7.6 6.1 - 8.1 g/dL [facility] ALBUMIN 4.3 3.6 - 5.1 g/dL [facility] GLOBULIN 3.3 1.9 - 3.7 g/dL (calc) [facility] ALBUMIN/GLOBULI N RATIO 1.3 1.0 - 2.5 (calc) [employer] BILIRUBIN, TOTAL 0.4 0.2 - 1.2 mg/dL [facility] [employer] ALKALINE PHOSPHATASE 79 37 - 153 U/L [facility] AST 14 10 - 35 U/L [facility] ALT 10 6 - 29 U/L [facility] Blood Blood / Unknown 06/21/2024 2 :31 PM EST 06/21/2024 2:32 PM EST Narrative [facility] - 06/22/2024 12:48 PM EST FASTING:NO Cordelia Moraes PA-C LAB - BLOOD DRAW Edited Resu lt - Final [employer] [address] [address], [facility] [address] [address] * REFERRAL FOR MAMMOGRAM (04/27/2024 3:00 AM EDT) 04/27/2024 3:00 AM EDT Cordelia Moraes PA-C IMG RFL MAMMO Edited Resul t - Final * REFERRAL TO DIABETIC RETINAL EXAM (02/09/2024 3:00 AM EDT) 02/09/2024 3:00 AM EDT Reza Britt PharmD REFERRAL Edited Re sult - Final * (ABNORMAL) LIPIDS W RFLX TO DIRECT LDL (10/28/2023 10:18 AM EDT) CHOLESTEROL, TOTAL 131 <200 mg/dL [facility] [facility] HDL CHOLESTEROL 35(L) > OR = 50 mg/dL [employer] TRIGLYCERIDES 158(H) <150 mg/dL [facility] LDL-CHOLESTEROL 72 99 mg/dL (calc) [facility] Comment: Reference range: <100 Desirable range <100 mg/dL for primary prevention; ?? <70 mg/dL for patients with CHD or diabetic patients with > or = 2 CHD risk factors. LDL-C is now calculated using the Viky calculation, which is a validated novel method providing better accuracy than the Friedewald equation in the estimation of LDL-C. Len GARCIA et al. JENNIFER. 2013;310(19): 5493-8704 (http://education.Zyante/faq/SCP468) CHOL/HDLC RATIO 3.7 <5.0 (calc) [facility] NON-HDL CHOLESTEROL 96 <130 mg/dL (calc) [facility] Comment: For patients with diabetes plus 1 major ASCVD risk factor, treating to a non-HDL-C goal of <100 mg/dL (LDL-C of <70 mg/dL) is considered a therapeutic option. Blood Blood / Unknown 10/28/2023 1 0:18 AM EDT 10/28/2023 10:18 AM EDT Narrative [employer] - 10/29/2023 9:14 AM EDT FASTING:YES Cordelia Moraes PA-C LAB - BLOOD DRAW Final Resul t [employer] [address] [address], [employer] [facility] [address] [place] [address] * MICROALBUMIN/CREATININE RATIO, URINE, RANDOM (02/26/2023 2:03 PM EDT) CREATININE, RANDOM URINE 37 20 - 275 mg/dL [facility] MICROALBUMIN <0.2 mg/dL [facility] [employer] Comment: Reference Range Not established MICROALBUMIN/CREA TININE RATIO, RANDOM URINE NOTE <30 [employer] Comment: NOTE: The urine albumin value is [...] EDT 02/26/2023 2:04 PM EDT Richa Atkins NP LAB - NO BLOOD DRAW Final Result Performing Organization Address [facility] Co de Phone Number [employer] [address] [place] [phone], [employer] [address] [address] * HEPATITIS C AB W/RFLX HCV RNA, QT, RT PCR (12/30/2022 10:40 AM EDT) HEPATITIS C ANTIBODY NON-REACT OBI NON-REACT OBI [employer] [facility] SIGNAL TO CUT-OFF 0.11 <1.00 [employer] Comment: HCV antibody was non-reactive. There is no laboratory evidence of HCV infection. In most cases, no further action is required. However, if recent HCV exposure is suspected, a test for HCV RNA (test code 18408) is suggested. For additional information please refer to http://education.[employer]Rights[employer]wide.com/faq/SPK07r8 (This link is being provided for informational/ educational purposes only.) Blood Blood / Unknown 12/30/2022 1 0:40 AM EDT 12/30/2022 10:40 AM EDT Narrative [employer] - 12/31/2022 7:57 AM EDT FASTING:YES Cordelia Moraes PA-C LAB - BLOOD DRAW Edited Resu lt - Final Performing Organization Address [facility] Co de Phone Number [employer] [address] [place] [address], [employer] [address] [phone] from Last 3 Months or Most Recently Relevant to Health Maintenance Insurance [facility] Member Subscriber Plan / Payer (Ef fective 2021-Present) Name:Lida Peoples Relation to Subscriber:Self Name:iLda Peoples Payer ID:[id number] Group ID:Not on file Type:Indemnity Address: [place] [address] [place] [address] Care Teams Oil Distributor Relationship Specialty Start Date End Date Cordelia Moraes PA-C [address] [place] [id number] PCP - General Internal Medicine 09/05/22
--- OUTSIDE RECORDS SUMMARY | 2024-10-17 17:04 | XMS_ITS | Encounter Summary ---
Author Organization [facility] Address [address] [place] [address] Care Team Providers Care Bar Machine Operator Production Name Role Phone Cordelia Moraes PA-C Primary Care Provider + [phone] Reason for Referral * Care Coordination (Routine) - New Request Specialty Diagnoses / Procedures Referred By Malaika kim Referred To Contact Diagnoses Type 2 diabetes mellitus with stage 3b chronic kidney disease, with long-term current use of insulin ([facility]) Reza Britt, JewelsD [address] [place] [address] Phone: tel: fax: Referral ID Status Reason Start Date Expiration Date Visits Requested Visits Authorized [id number] New Request Continuity of Care 09/28/2024 09/28/2025 1 1 Comments 69-year-old Argentine-speaking insulin-dependent DM2 patient, requesting diabetes education and nutrition, please evaluate, thank you! * Podiatry (Routine) - Pending Review Specialty Diagnoses / Procedures Referred By Malaika kim Referred To Contact Podiatry Diagnoses Type 2 diabetes mellitus with stage 3b chronic kidney disease, with long-term current use of insulin ([facility]) Reza Britt, PharmD [address] [place] [address] Phone: tel: fax: OTHER Referral ID Status Reason Start Date Expiration Date Visits Requested Visits Authorized [id number] Pending Review Continuity of Care 09/28/2024 09/28/2025 1 1 Comments 69-year-old Argentine-speaking insulin dependent DM2 patient, completed last diabetic foot exam 1 year ago, please evaluate, thank you! Reason for Visit * Reason Comments Diabetes Mellitus Encounter Details Date Type Department Care Team (Latest Contact Info) Description 09/28/2024 1:20 PM EST Office Visit [facility] [address] [place] [address] Reza Britt, Patsy [address] [place] [address] Type 2 diabetes mellitus with stage 3b chronic kidney disease, with long-term current use of insulin ([facility]) (Primary Dx); Stage 3 chronic kidney disease due to type 2 diabetes mellitus ([facility]); Essential hypertension; Heart failure with reduced ejection fraction, NYHA class III ([facility]); Cardiac pacemaker; Hyperlipidemia LDL goal <100; Dilated cardiomyopathy ([facility]) Social History Tobacco Use Types Packs/Day Years [...] Don't know 12/30/2022 6: 55 AM PDT documented as of this encounter Last Filed Vital Signs Vital Sign Reading Time Taken Comments Blood Pressure 100/60 09/28/2024 1:29 PM EST Pulse 74 09/28/2024 1:29 PM EST Temperature - - Respiratory Rate 16 09/28/2024 1:29 PM EST Oxygen Saturation 98% 09/28/2024 1:29 PM EST Inhaled Oxygen Concentration - - Weight 58.1 kg (128 lb) 09/28/2024 1:29 PM EST Height 149.9 cm (4' 11 ) 09/28/2024 1:29 PM EST Body Mass Index 25.85 09/28/2024 1:29 PM EST documented in this encounter Progress Notes * Reza Britt PharmD - 10/03/2024 9:36 AM EST Obtained [facility] notes, will print and send to medical records to be scanned in patient's chart. Per notes: 08/01/24 at [facility] NYHA class III stage C - [...] exercise test for risk stratification 06/14/24 at [facility] Labs ordered Refer back to EP for PVC burden of 30%, frequent runs of ventricular couplets and nonsustained VT, variable LBBB 05/12/24 at [facility] NYHA class II 24-hour Holter monitor to assess PVC burden F/U 3-4 weeks, Dr. Kowalski in 3-4 months * Reza Britt PharmD - 09/28/2024 1:41 PM EST Images from the original note were not included. Lida Peoples is a 69 year old, Argentine-speaking female who presents today for a follow-up visit in Diabetes Clinic with Reza Britt PharmD. Referred by Cordelia Moraes PA-C. No green inspector needed for today's visit as provider speaks patient's familiar language. Accompanied by: None Subjective: Patient reports: Patient notably cancelled appt with me on 08/04/24, 08/16/24 and 09/01/24. Continues to use [employer] 3 Plus, denies experiencing any issues. Per AGP report, TIR is at 64%, with 1% low BG values. Time CGM active is at 56%, [facility] Continues to administer Lantus Solostar 8 units at bedtime around 8-9 PM. Endorses use of Jardiance 10 mg daily every morning, although reports Tradjenta 5 mg was lowering my sugars better . Denies experiencing bilateral peripheral extremity numbness or tingling. Polydipsia/polyphagia/polyuria? no Changes in diet: Admits to occasional nighttime snacking with crackers and coffee. Reports eating small portions of meals. Denies eating breakfast, reports eating first meal at 1 PM. Reports eating rice 1-2 times per week. Changes in physical activity: None New concerns: None Tobacco Use: Never Smoker Tobacco Intervention:provided smoking cessation counseling Alcohol Use: No alcohol use Additional OTC medications or supplements: APAP prn Specialists managing DM/HTN: Cardiology (Location: [facility], last seen: 08/01/24): see problem list Nephrology (Location: [facility], Dr. Omayra Chapin, last seen 08/26/24): see problemlist Diabetes Current Diabetes RX: Lantus Solostar - inject 8 units daily at bedtime Jardiance 10 mg daily HTN Current HTN RX: Entresto 24/26 mg twice daily (prescribed by [facility]) Metoprolol succinate ER 100 mg daily (prescribed by [facility]) Furosemide 20 mg twice daily (prescribed by [facility]) Spironolactone 25 mg daily (prescribed by [facility]) Previous anti-hypertensives and reason for discontinuation: Carvedilol (D/C 05/09/24) due to changed from carvedilol to metoprolol at 05/04/24 discharge Objective: CGM Metrics: Previous 2 weeks SMBG (CGM: Freestyle Clif 3 Plus) Allergies reviewed: Allergies Allergen Reactions Codeine Hives Hydrocodone-Acetaminophen Hives Lisinopril Hives Metoclopramide Hives Naproxen Hives Oxycodone-Acetaminophen Hives Pollen Extracts Hives Tramadol Hives BP 100/60 (Left Arm, Sitting, Regular Adult) Pulse 74 Resp 16 Ht 4' 11 (1.499 m) Wt 128 lb(58.1 kg) SpO2 98% BMI 25.85 kg/m?? OB Status Hysterectomy Smoking Status Never BSA 1.56 m?? Estimated Creatinine Clearance: 25 mL/min (A) (by C-G formula based on SCr of 1.66 mg/dL (H)). Last 3 BP Readings: Date: BP: 09/28/2024 100/60 07/18/2024 96/60 06/21/2024 100/62 Wt Readings from Last 3 Encounters: 09/28/24 128 lb (58.1 kg) 07/18/24 128 lb (58.1 kg) 06/21/24 125 lb (56.7 kg) Lab Results Component Value Date HGBA1C 6.3 (H) 06/21/2024 HGBA1C 6.0 (H) 10/28/2023 HGBA1C 5.9 (H) 12/30/2022 Lab Results Component Value Date GLUCOSE 155 (A) 09/28/2024 EAG 7.4 06/21/2024 Lab Results Component Value Date URALBCREAT NOTE 02/26/2023 Lab Results Component Value Date VITB12 287 06/21/2024 FOLATE 8.9 06/21/2024 Lab Results Component Value Date NA 134 (L) 06/21/2024 K 4.4 06/21/2024 BUN 24 06/21/2024 BUNCREAT 14 06/21/2024 CREATININE 1.66 (H) 06/21/2024 EGFR 33 (L) 06/21/2024 Lab Results Component Value Date TSH 1.76 12/30/2022 Lab Results Component Value Date TRIGLYC 158 (H) 10/28/2023 CHOL 131 10/28/2023 HDL 35 (L) 10/28/2023 LDL 72 10/28/2023 CHOLHDL 3.7 10/28/2023 NONHDL 96 10/28/2023 The 10-year ASCVD risk score (Cristina ALEX, et al., 2019) is: 11.5% Assessment: Diabetes: Well-controlled A1c, Controlled SMBG HTN: well-controlled ASCVD: Age 40-75 yo, DM, no ASCVD = moderate intensity statin recommended in addition to lifestyle therapy Plan: E11.22,N18.32,Z79.4 Type 2 diabetes mellitus with stage 3b chronic kidney disease, with long-term current use of insulin ([facility]) (primary encounter diagnosis) Plan : GLUCOSE, BLOOD BY GLUCOSE MONITORING DEVICE (CLIA WAIVED)POCT MICROALBUMIN/CREATININE RATIO, URINE, RANDOM EMPAGLIFLOZIN 25 MG TABLET - Take 1 Tablet by mouth every morning (Take with plenty of water throughout the day) stop 10 mg REFERRAL TO PODIATRY REFERRAL TO DIABETES EDUCATION/NUTRITION PHARMACOTHERAPY for diabetes Continue to use Midisola[employer]e 3 Plus for CGM. Counseled patient to decrease nighttime snacking to prevent late hyperglycemia. Will make the following medication adjustments: Decreased Lantus Solostar -inject 4 units at bedtime until her current pen is completed (due to borderline hypoglycemia and increase in Jardiance - informed patient to d/c if experiencing hypoglycemia) Increased Jardiance 25 mg daily every morning (for additional renal protection) Counseled patient on the following diet and lifestyle modifications (weight loss, low-sodium (WILBURN)diet, decrease carbohydrates such as rice, bread, pasta and corn meal, increase non-starchy vegetables, no potatoes or corn, increase protein, and increase physical activity with at least 150 minutesof moderate physical activity per week) I50.20 Heart failure with reduced ejection fraction, NYHA class III ([facility]) Plan : EMPAGLIFLOZIN 25 MG TABLET - Take 1 Tablet by mouth every morning (Take with plenty of water throughout the day) stop 10 mg Continue to follow-up with [facility]. I10 Essential hypertension/Z95.0 Cardiac pacemaker BP/HR stable, continue to follow-up with [facility], will print recent notes and send to medical records to be scanned in patient's chart. Will continue current medications: Entresto 24/26 mg twice daily (prescribed by [facility]) Metoprolol succinate ER 100 mg daily ([facility]) Furosemide 20 mg twice daily (prescribed by [facility]) Spironolactone 25 mg daily (prescribed by [facility]) E78.5 Hyperlipidemia LDL goal <100 ASCVD: Per 2023 ADA guidelines for lipid management, continue high-intensity statin: Atorvastatin 40 mg daily at bedtime (prescribed by [facility]) E11.22,N18.30 Stage 3 chronic kidney disease due to type 2 diabetes mellitus ([facility]) Plan : EMPAGLIFLOZIN 25 MG TABLET - Take 1 Tablet by mouth every morning (Take with plenty of water throughout the day) stop 10 mg Continue to follow-up with [facility]. Increased Jardiance 25 mg daily every morning (for additional renal protection) Referral: Diabetes Education and Nutrition: issued internal referral for diabetes management with Elizabeth JARQUIN and Foot Exam: Issued external referral to mold cleaner Follow-Up: 11/24/24 @2 PM Patient agrees with plan of care and verbalizes understanding. Questions were answered. Education: Labs due urine microalbumin/SCr ratio - will review results and determine best therapy Medication Regimen: (indication, dosage, administration, storage, ADR, missing dose) BG testing and target/Alternate Site Testing Focus on consuming carbohydrates from high-fiber sources like whole grains, legumes, and fruits in controlled portions to help manage blood sugar levels, and aim to fill half your plate with non-starchy vegetables like leafy greens, broccoli, or peppers for added nutrients and fiber. Avoid sugary beverages like soda and limit sweets to special occasions, choosing healthier alternatives such as water, unsweetened tea, or low-calorie drinks to minimize blood sugar spikes Incorporate at least 150 minutes of moderate physical activity per week, such as brisk walking or cycling, to improve insulin sensitivity, enhance glucose control, and support overall cardiovascular health. Sign / Symptoms of Hyperglycemia / Hypoglycemia Hypoglycemia Treatment (Rule 15) Brown Stock Washer Complications Uncontrolled Diabetes Reza Britt PharmD documented in this encounter Miscellaneous Notes * Patient Instructions - Reza Britt PharmD - 09/28/2024 2:07 PM EST [employer] Customer Support Carlie [employer] 3: [id number] Ray Britt PharmD, [facility] Clinical Pharmacist [employer] 2 para Espanol Pone la extension [phone] If you are not able to keep your appointment please call 24-48 hours before your appointment to cancel or reschedule. documented in this encounter Plan of Treatment Upcoming Encounters Date Type Department Care Team (Late st Contact Info) Description 11/24/2024 2:00 PM EDT Office Visit [facility] [address] [place] [phone] Reza Britt PharmD [address] [place] [address] Scheduled Orders Name Type Priority Associated Diagnoses Orde r Schedule MICROALBUMIN/CREATININE RATIO, URINE, RANDOM Lab Routine Type 2 diabetes mellitus with stage 3b chronic kidney disease, with long-term current use of insulin ([facility]) Ordered: 09/28/2024 Scheduled Referrals Name Type Priority Associated Diagnoses Orde r Schedule REFERRAL TO PODIATRY Referral Routine Type 2 diabetes mellitus with stage 3b chronic kidney disease, with long-term current use of insulin ([facility]) Ordered: 09/28/2024 REFERRAL TO DIABETES EDUCATION/NUTRITION Referral Routine Type 2 diabetes mellitus with stage 3b chronic kidney disease, with long-term current use of insulin ([facility]) Ordered: 09/28/2024 documented as of this encounter Procedures Procedure Name Priority Date/Time Associated Diagnosis Comments GLUCOSE, BLOOD BY GLUCOSE MONITORING DEVICE (CLIA WAIVED)POCT Routine 09/28/2024 1:32 PM EST Type 2 diabetes mellitus with stage 3b chronic kidney disease, with long-term current use of insulin ([facility]) documented in this encounter Results * (ABNORMAL) GLUCOSE, BLOOD BY GLUCOSE MONITORING DEVICE (CLIA WAIVED)POCT (09/28/2024 1:32 PM EST) GLUCOSE 155(A) 70 - 100 mg/dL [facility] POCT Capillary Blood Blood / Unknown 1:32 PM EST us Reza Britt PharmD LAB - BLOOD DRAW Final Re sult [facility] POCT documented in this encounter Visit Diagnoses Diagnosis Type 2 diabetes mellitus with stage 3b chronic kidney disease, with long-term current use of insulin ([facility])- Primary Stage 3 chronic kidney disease due to type 2 diabetes mellitus ([facility]) Essential hypertension Heart failure with reduced ejection fraction, NYHA class III ([facility]) Cardiac pacemaker Cardiac pacemaker in situ Hyperlipidemia LDL goal <100 Other and unspecified hyperlipidemia Dilated cardiomyopathy ([facility]) Other primary cardiomyopathies documented in this encounter Additional Health Concerns Assessment Noted Time PHQ-9 Depression Total Score: 3 03/14/20 24 10:12 AM PDT documented as of this encounter Care Teams Bar Machine Operator Production Relationship Specialty Start Date End Date Cordelia Moraes PA-C [address] [place] [address] PCP - General Internal Medicine 09/05/22 documented as of this encounter
--- OUTSIDE RECORDS SUMMARY | 2024-10-17 17:04 | XMS_ITS | Clinical Summary ---
Author Organization [employer] [facility] Address [address] [place] [address] [address] [place] [address] Care Team Providers Care Refrigeration Plant Cork Insulator Name Role Phone Unavailable Primary Care Provider [...] 1996 Zoster Vaccines (1 of 2) 2006 Pneumococcal Vaccine: 50+ Years (2 of 2 - PCV) 02/16/2010 02/16/2009 RSV Patients and Patients Aged 60 years or older (1 - Risk 60-74 years 1-dose series) 2016 Dental X-Ray: Full Mouth 02/12/2019 02/12/2016 DTaP/Tdap/Td Vaccines (2 - Td or Tdap) 02/16/2019 02/16/2009 Dental X-Ray: Bitewings 05/28/2019 05/27/20 18, 04/09/2017, 02/12/2016, Additional history exists Dental Oral Exam 12/08/2019 06/08/2019, , 04/09/2017, Additional history exists Dental Prophylaxis 12/08/2019 06/08/2019, 0 12/01/2018, 05/27/2018, Additional history exists COVID-19 Vaccine ( season) 2024 10/29/2020, 09/30/2020 Influenza Vaccine (#1) [...] RADIOGRAPHIC IMAGES Routine 05/27/2018 12:00 AM EDT INTRAORAL - COMPLETE SERIES OF RADIOGRAPHIC IMAGES Routine 02/12/2016 12:00 AM EDT from Last 3 Months or Most Recently Relevant to Health Maintenance Insurance DENTAL - [facility] * Guarantor: Lida Peoples Account Type Relation to Patient Date of Phone Billing Address Personal/Family Self [address]
--- OUTSIDE RECORDS SUMMARY | 2024-10-17 17:04 | XMS_ITS | Encounter Summary ---
Author Organization [facility] Address [address] [place] [address] Care Team Providers Care Hazmat Tanker Driver Name Role Phone Cordelia Moraes PA-C Primary Care Provider [phone] Reason for Visit * Reason Comments Complete Physical Exam Encounter Details Date Type Department Care Team ([facility] st Contact Info) Description 09/30/2024 1:40 PM EST Office Visit [address] [phone] Cordelia Moraes PA-C [address] [place] [id number] Annual physical exam (Primary Dx); Immunization due; Type 2 diabetes mellitus with stage 3b chronic kidney disease, with long-term current use of insulin (HCC-CMS); Stage 3 chronic kidney disease due to type 2 diabetes mellitus (HCC-CMS); Essential hypertension; Heart failure with reduced ejection fraction, NYHA class III (HCC-CMS); Carpal tunnel syndrome of right wrist Social History Tobacco Use Types Packs/Day Years [...] 09/30/2024 1:32 PM ES T Respiratory Rate - - Oxygen Saturation 97% 09/30/2024 1:32 PM EST Inhaled Oxygen Concentration - - Weight 57.8 kg (127 lb 6.4 oz) 09/30/2024 1:32 P M EST Height 149.9 cm (4' 11 ) 09/30/2024 1:32 PM EST Body Mass Index 25.73 09/30/2024 1:32 PM EST documented in this encounter Progress Notes * Cordelia Moraes PA-C - 09/30/2024 1:40 PM EST Lida Peoples is a 69 year old female who presents for CPE Subjective: Lida Peoples is a 69 year old female with a history of the following medical problems: Patient Active Problem List Diagnosis History of appendectomy Hx of cholecystectomy Cardiac pacemaker Anemia of chronic renal failure Chronic abdominal pain Constipation Chronic depression Dilated cardiomyopathy ([facility]) Ectopic kidney Eczema Gastroesophageal reflux disease Gout Heart failure with reduced ejection fraction, NYHA class III ([facility]) Essential hypertension Hyperlipidemia LDL goal <100 Implantable cardioverter-defibrillator (ICD) in situ Insomnia Memory impairment Migraine Mild vaginal dysplasia Polyp of colon Stage 3 chronic kidney disease due to type 2 diabetes mellitus ([facility]) Type 2 diabetes mellitus with stage 3b chronic kidney disease, with long-term current use of insulin ([facility]) History of lobectomy of thyroid Degenerative tear of medial meniscus of right knee HPI Lida Peoples reported continues with pain at her right wrist with mild swelling. Denied trauma. This started more than 6 months ago. She was sent for EMG due to the weakness. Stated is not able to open a bottle due to the pain. EMG 09/14/2024 showed Mild right distal median neuropathy. This is compatible with carpal tunnel syndrome. -Nephrology follow up 08/26/2024 -Seeing Cardiology last visit 05/12/2024, next mague next 10/04/2024 Social History: Smoking cigarettes: Denied Recreational Drugs: Denied Alcohol use: Denied Preventative Care: Oral Care: Yes Eye Care: Yes Mammogram: Next due 2025 Colonoscopy: Next due 2031 PAP smear: N/A Current Outpatient Medications Medication Sig Last Dispense Staff Notes empagliflozin (JARDIANCE) 25 mg tab Take 1 Tablet by mouth every morning (Take with plenty of waterthroughout the day) stop 10 mg Unknown (outside pharmacy) <None> DAILY-MOSES, WITH FOLIC ACID, 400 mcg tab TOME 1 TABLETA POR VIA ORAL TODOS [place] Unknown (outside pharmacy) <None> furosemide (LASIX) 40 mg tablet TOME 1 TABLETA POR VIA ORAL DOS VECES AL ANANTH Unknown (outside pharmacy) <None> gabapentin (NEURONTIN) 600 mg tablet TOME MONA TABLETA ALISTAIR VECES AL ANANTH Unknown (outside pharmacy) <None> ENTRESTO 24-26 mg tab Take 1 Tablet by mouth 2 (two) times daily (Prescribed by [facility]) Unknown (outside pharmacy) <None> allopurinoL (ZYLOPRIM) 100 mg tablet TOME 1 TABLETA POR VIA ORAL TODOS [place] Unknown (outside pharmacy) <None> omeprazole (PRILOSEC) [address] capsule TOME MONA CAPSULA TODOS [place] EN LA MANANA ANTES DEL DESAYUNO Unknown (outside pharmacy) <None> zolpidem (AMBIEN) 5 mg tablet Take 1 Tablet by mouth nightly at bedtime NEEDED FOR SLEEP!! Unknown (outside pharmacy) <None> apixaban (ELIQUIS) 5 mg tab Take 1 Tablet by mouth 2 (two) times Daily Unknown (outside pharmacy) <None> cholecalciferol (VITAMIN D-3) 50 mcg (2,000 unit) capsule TOME 1 CAPSULA POR VIA ORAL TODOS [place] Unknown (outside pharmacy) <None> fluticasone (FLONASE) 50 mcg/actuation nasal spray Place 1 [place] in both nostrils once daily NEEDED FOR RHINITIS OR ALLERGIES!! Unknown (outside pharmacy) <None> loratadine (CLARITIN) 10 mg tablet TOME 1 TABLETA POR VIA ORAL TODOS [place] CUANDO SEA NECESARIO FOR ALLERGIES Unknown (outside pharmacy) <None> aspirin [address] tablet TOME MONA TABLETA TODOS LOS D Unknown (outside pharmacy) <None> blood sugar diagnostic strips Use to test blood glucose three times daily. (Freestyle Lite) Unknown(outside pharmacy) <None> lancets (FREESTYLE LANCETS) 28 gauge Use to test blood glucose three times daily. (Freestyle Lancets) Unknown (outside pharmacy) <None> methocarbamoL (ROBAXIN) 750 mg tablet TAKE 1 TABLET BY MOUTH 2 TIMES DAILY NEEDED FOR OTHER (SPASM). Unknown (outside pharmacy) <None> BD LISA 2ND GEN PEN NEEDLE 32 gauge x 5/32 ndle 1 to 3 (one to three) times daily Use to inject insulin as per order Unknown (outside pharmacy) <None> blood-glucose sensor (FREESTYLE CLIF 3 PLUS SENSOR) chris Place 1 sensor to back of upper arm every15 days. Use to monitor blood sugar continuously (Freestyle Clif 3 Plus) Unknown (outside pharmacy) <None> blood-glucose meter,continuous (FREESTYLE CLIF 3 READER) [facility] Use to test blood glucose continuously. (Freestyle Clif 3 reader) Unknown (outside pharmacy) <None> metoprolol succinate XL (TOPROL-XL) 100 mg 24 hr tablet Take 1 Tablet by mouth once daily (Prescribed by [facility]) Unknown (patient-reported) <None> spironolactone (ALDACTONE) 25 mg tablet Take 1 Tablet by mouth once daily (Prescribed by [facility]) Unknown (patient-reported) <None> TRADJENTA 5 mg tab Take 1 Tablet by mouth every morning For diabetes Unknown (outside pharmacy) <None> triamcinolone (KENALOG) 0.5 % cream APPLY TO AFFECTED AREA TWICE DAILY FOR 2 WEEKS. THEN ON AND OFFAS NEEDED FOR FLARES. Unknown (outside pharmacy) <None> silver sulfADIAZINE (SILVADENE) 1 % cream [facility]/pharmacy [facility][id number] [place] [phone] 50 g Refills RemaininDays Supply: 30Sig: APPLY TOPICALLY TO NAIL BED DAILYSource: Surescripts (Fill History, Ambulatory)Authorized by: JESSICA KAYE Unknown (patient-reported) <None> alcohol swabs Use to test blood glucose three times daily. Unknown (outside pharmacy) <None> atorvastatin (LIPITOR) 40 mg tablet Take 1 Tablet by mouth nightly at bedtime (Prescribed by [facility]) Unknown (patient-reported) <None> acetaminophen (TYLENOL) 500 mg tablet Take 1 Tablet by mouth every 6 (six) hours as needed Unknown (patient-reported) <None> No current facility-administered medications for this visit. Depression Screen: 09/30/2024 1:32 PM Little interest or pleasure in doing things Not at all Feeling down, depressed or hopeless [include irritable if under 18] Not at all Trouble falling or staying asleep, or sleeping too much Not at all Feeling tired or having little energy Not at all Poor appetite or overeating Not at all Feeling bad about yourself - or that you are a failure or have let yourself or your family down Notat all Trouble concentrating on things like school work, reading or watching TV? Not at all Moving or speaking so slowly that other people could have noticed? Or the opposite - being so fidgety or restless that you have been moving around a lot more than usual Not at all Thoughts you would be better off or of hurting yourself in some way Not at all If you checked off any problems, how difficult have these problems made it for you to do your work,take care of things at home, or get along with other people? Not difficult at all PHQ-9 Total Score (Auto Calculated) 0 Depression Severity: None-minimal ROS: Review of Systems All other systems reviewed and are negative. Vitals: Vitals: 09/30/24 1332 BP: 98/64 BP Site: Right Arm BP Position: Sitting BP Cuff Size: Regular Adult Pulse: 80 Temp: 97.9 ??F (36.6 ??C) TempSrc: Oral SpO2: 97% Weight: 127 lb 6.4 oz (57.8 kg) Height: 4' 11 (1.499 m) Estimated body mass index is 25.73 kg/m?? as calculated from the following: Height as of this encounter: 4' 11 (1.499 m). Weight as of this encounter: 127 lb 6.4 oz (57.8 kg). Facility age limit for growth %clif is 20 years. Physical Exam: Physical Exam Vitals and nursing note reviewed. Constitutional: General: She is not in acute distress. Appearance: Normal appearance. She is well-developed. She is not ill-appearing or diaphoretic. HENT: Head: Normocephalic and atraumatic. Not macrocephalic. Right Ear: Tympanic membrane, ear canal and external ear normal. Left Ear: Tympanic membrane, ear canal and external ear normal. Nose: Nose normal. Mouth/Throat: Pharynx: Uvula midline. No oropharyngeal exudate. Eyes: General: Lids are normal. Right eye: No discharge. Left eye: No discharge. Conjunctiva/sclera: Conjunctivae normal. Pupils: Pupils are equal, round, and reactive to light. Neck: Thyroid: No thyroid mass or thyromegaly. Trachea: Trachea normal. No tracheal deviation. Cardiovascular: Rate and Rhythm: Normal rate and regular rhythm. Chest Wall: PMI is not displaced. Pulses: Normal pulses. Heart sounds: Normal heart sounds. No murmur heard. No friction rub. No gallop. Pulmonary: Effort: Pulmonary effort is normal. No accessory muscle usage or respiratory distress. Breath sounds: Normal breath sounds. No decreased breath sounds, wheezing, rhonchi or rales. Abdominal: General: Bowel sounds are normal. There is no distension. Palpations: Abdomen is soft. There is no hepatomegaly, splenomegaly or mass. Tenderness: There is no abdominal tenderness. There is no guarding or rebound. Musculoskeletal: General: No tenderness or deformity. Normal range of motion. Cervical back: Full passive range of motion without pain, normal range of motion and neck supple. No edema. Normal range of motion. Lymphadenopathy: Cervical: No cervical adenopathy. Skin: General: Skin is warm and dry. Coloration: Skin is not pale. Findings: No abrasion, erythema or rash. Neurological: Mental Status: She is alert and oriented to person, place, and time. Motor: No tremor, atrophy, abnormal muscle tone or seizure activity. Gait: Gait normal. Psychiatric: Speech: Speech normal. Behavior: Behavior normal. Behavior is cooperative. Lab Results Component Value Date NA 134 (L) 06/21/2024 K 4.4 06/21/2024 CHLORIDE 94 (L) 06/21/2024 CO2 28 06/21/2024 CALCIUM 9.6 06/21/2024 BUN 24 06/21/2024 BUNCREAT 14 06/21/2024 EGFR 33 (L) 06/21/2024 CREATININE 1.66 (H) 06/21/2024 PROTEIN 7.6 06/21/2024 ALBUMIN 4.3 06/21/2024 GLOBULIN 3.3 06/21/2024 AGRATIO 1.3 06/21/2024 AST 14 06/21/2024 ALT 10 06/21/2024 ALKPHOS 79 06/21/2024 BILIRUBIN 0.4 06/21/2024 GLUCOSE 155 (A) 09/28/2024 Lab Results Component Value Date WBC 10.0 10/28/2023 NEUTROPHILS 5,340 10/28/2023 LYMPHOCYTES 3,310 10/28/2023 RBC 4.28 10/28/2023 HGB 10.6 (L) 10/28/2023 HCT 34.4 (L) 10/28/2023 MCV 80.4 10/28/2023 MCH 24.8 (L) 10/28/2023 MCHC 30.8 (L) 10/28/2023 RDW 13.1 10/28/2023 PLATELETS 281 10/28/2023 MPV 10.7 10/28/2023 MONOCYTES 1,060 (H) 10/28/2023 EOSINOPHILS 210 10/28/2023 BASOPHILS 80 10/28/2023 Lab Results Component Value Date TSH 1.76 12/30/2022 Lab Results Component Value Date HGBA1C 6.3 (H) 06/21/2024 HGBA1C 6.0 (H) 10/28/2023 HGBA1C 5.9 (H) 12/30/2022 Lab Results Component Value Date TRIGLYC 158 (H) 10/28/2023 CHOL 131 10/28/2023 HDL 35 (L) 10/28/2023 LDL 72 10/28/2023 CHOLHDL 3.7 10/28/2023 NONHDL 96 10/28/2023 Assessment/Plan: Z00.00 Annual physical exam (primary encounter diagnosis) Reviewed recent lab results with the patient. Z23 Immunization due Declined E11.22,N18.32,Z79.4 Type 2 diabetes mellitus with stage 3b chronic kidney disease, with long-term current use of insulin ([facility]) -Continue with current treatment. No changes made to her meds. -Advised to follow up with DM clinic. E11.22,N18.30 Stage 3 chronic kidney disease due to type 2 diabetes mellitus ([facility]) -Follow up with Nephrology -Avoid NSAID. Patient aware. I10 Essential hypertension I50.20 Heart failure with reduced ejection fraction, NYHA class III ([facility]) -Follow up with cardiology. -Continue with current treatment. G56.01 Carpal tunnel syndrome of right wrist -EMG was shared with the aptient -Advised to use wrist brace. -Pending mague with ortho. Return in about 4 months (around 01/28/2025) for Chronic conditions follow up . Depression screening:DEPRESSION FU PROVIDED ([facility]): Counseling / education in visit Lifestyle measures:BMI follow up plan: The patient was counseled regarding nutrition and physical activity. documented in this encounter Miscellaneous Notes * Patient Instructions - Cordelia Moraes PA-C - 09/30/2024 2:25 PM EST If you are not able to keep your appointment please call 24-48 hours before your appointment to cancel or reschedule. documented in this encounter Plan of Treatment Upcoming Encounters Date Type Department Care Team (Late st Contact Info) Description 11/24/2024 2:00 PM EDT Office Visit [facility] [address] [place] [address] Reza Britt, PharmD [address] [place] [address] documented as of this encounter Visit Diagnoses Diagnosis Annual physical exam- Primary Routine general medical examination at a health care facility Immunization due Need for prophylactic vaccination and inoculation against unspecified single disease Type 2 diabetes mellitus with stage 3b chronic kidney disease, with long-term current use of insulin ([facility]) Stage 3 chronic kidney disease due to type 2 diabetes mellitus ([facility]) Essential hypertension Heart failure with reduced ejection fraction, NYHA class III ([facility]) Carpal tunnel syndrome of right wrist Carpal tunnel syndrome documented in this encounter Additional Health Concerns Assessment Noted Time PHQ-9 Depression Total Score: 0 09/30/19 25 1:32 PM PST documented as of this encounter Care Teams Hazmat Tanker Driver Relationship Specialty Start Date End Date Cordelia Moraes PA-C [address] [place] [address] PCP - General Internal Medicine 09/05/22 documented as of this encounter
== END 2024-10-17 15:12 | disposition home or self-care (01) ==
LOC: HO.ENCR 14:32
PROVIDERS: Visit Provider Student in an Organized Health Care Education/Training Program
DX: E04.2 Nontoxic multinodular goiter (principal)
CPT/HCPCS: 99213

== ENCOUNTER → 2024-10-17 14:32 | Outpatient (BNVA) | payer OTHER, SELFPAY | PROVIDERS: Visit Provider Student in an Organized Health Care Education/Training Program | DX: E04.2 Nontoxic multinodular goiter (principal) | CPT/HCPCS: 99212 ==

== ENCOUNTER 2024-11-22 12:38 | Outpatient (REF) | payer OTHER, SELFPAY ==
--- NOTE | ~2024-11-22 | US_ITS ---
EXAMINATION: US THYROID CLINICAL INFORMATION: Nontoxic multinodular goiter. COMPARISON: April 07, 2023. TECHNIQUE: Linear transducer grayscale and color Doppler examination with attention to the region of the thyroid. FINDINGS: SIZE: Measurements of the thyroid lobes and nodules are given in sagittal, anteroposterior and transverse dimensions respectively. Right Thyroid Lobe: Status post hemithyroidectomy. Left Thyroid Lobe: 3.7 x 1.4 x 1.8 cm, volume 4.7 mL. Previously 4.0 x 1.7 x 1.7 cm and volume: 6 cc. Parenchyma: The gland echotexture is heterogeneous. Thyroid vascularity is normal. Isthmus: 0.3 cm in maximum AP dimension. Previously 0.3 cm. Estimated total number of nodules greater than or equal to 1 cm: 1. Project Architect nodules are described as follows: 1. Location: Midportion left lobe. Size: 1.2 x 0.6 x 1.2 cm, volume 0.471 mL. Nodule characteristics: Composition: Solid/almost completely solid (2). Echogenicity: Isoechoic (1). Shape: Not taller than wide (0). Margins: Ill-defined (0). Echogenic Foci: None (0). ACR TI-RADS total points: 3 ACR TI-RADS category: 3 2. Location: Midportion, left lobe. Size: 0.6 x 0.3 x 0.7 cm, volume 0.0 58 mL. Nodule characteristics: Composition: Cystic(0). Echogenicity: Anechoic (0). Shape: Not taller than wide (0). Margins: Smooth (0). Echogenic Foci: None (0). ACR TI-RADS total points: 0 ACR TI-RADS category: 1 3. Location: Midportion, left lobe. Size: 0.4 x 0.2 x 0.3 cm, volume 0.014 mL. Nodule characteristics: Composition: Spongiform (0). Echogenicity: Anechoic (0). Shape: Not taller than wide (0). Margins: Smooth (0). Echogenic Foci: None (0). ACR TI-RADS total points: 0 ACR TI-RADS category: 1 4. Location: Lower pole, left lobe. Size: 0.5 x 0.4 x 0.6 cm, volume 0.0 63 mL. Nodule characteristics: Composition: Mixed cystic and solid (1). Echogenicity: Hypoechoic (2). Shape: Not taller than wide (0). Margins: Ill-defined (0). Echogenic Foci: None (0). ACR TI-RADS total points: 3 ACR TI-RADS category: 3 NODES: No lymphadenopathy is seen in the tissue surrounding the thyroid gland. US/US thyroid IMPRESSION: ACR TI RADS 3. Status post right hemithyroidectomy. ACR TI-RADS RECOMMENDATION REFERENCE: Ultrasound-guided fine-needle aspiration, followup ultrasound, no further follow up. * TR1 (0 point) and TR2 (2 points): No FNA or follow up. * TR3 (3 points): FNA if more than or equal to 2.5 cm in maximum dimension, followup ultrasound in 1, 3 and 5 years if 1.5 to 2.4 cm in maximum dimension. * TR4 (4-6 points): FNA if more than or equal to 1.5 cm in maximum dimension, followup ultrasound in 1, 2, 3 and 5 years if 1 to 1.4 cm in maximum dimension. * TR5 (more than or equal to 7 points): FNA if more than or equal to 1 cm in maximum dimension, followup ultrasound every year for 5 years if 0.5 to 0.9 cm in maximum dimension. * TR3, TR4 or TR5 nodules that are below the size threshold for followup receive no follow up. Electronically signed by: Bassam Sweeney MD 11/23/2024 12:48 PM EDT
--- OUTSIDE RECORDS SUMMARY | 2024-11-22 15:03 | XMS_ITS | Encounter Summary ---
Author Organization [facility] Address [address] [place] [address] [address] [place] [address] Care Team Providers Care Patient'S Librarian Name Role Phone Unavailable Primary Care Provider [...]
--- OUTSIDE RECORDS SUMMARY | 2024-11-22 15:03 | XMS_ITS | Clinical Summary ---
Author Organization [facility] Address [address] [place] [address] [address] [place] [address] Care Team Providers Care Puzzle Assembler Name Role Phone Unavailable Primary Care Provider [...] Relevant to Health Maintenance Insurance DENTAL - [facility] * Guarantor: Lida Peoples Account Type Relation to Patient Date of Phone Billing Address Personal/Family Self [address]
--- OUTSIDE RECORDS SUMMARY | 2024-11-22 15:03 | XMS_ITS | Clinical Summary ---
Author Organization [facility] Address [address] [place] [address] [place] [address] Phone Care Team Providers Care Chairman Name Role Phone Catherine Cuellar MD Primary Care Provider [phone] Allergies Active Allergy Reactions Criticality Noted Date [...] failure 11/30/2020 Overview (11/30/2020): Dr. Jens Rosas, [facility] cardiology Hypertensive disorder 11/30/2020 Hypercholesterolemia 11/30/2020 Gastroesophageal reflux disease 11/30/2020 Fibromyalgia 11/30/2020 Ectopic kidney 11/30/2020 Dilated cardiomyopathy 11/30/2020 Overview (11/30/2020): 05/2017 EF 40% Dr. Jens Rosas -[facility] cardiology. AICD Proteinuria 11/30/2020 Renal disorder due to type 2 diabetes mellitus 0 11/30/2020 Pain of knee region 05/03/2019 Chronic kidney disease stage 3 due to type 2 diabetes mellitus 08/17/2018 Overview (11/30/2020): Cr 2.0 on 07/29/18 - outside labs by Endo. Referred by Josue to Dr Cornel Cutler ([facility]). Latest Cr 06/06/19 1.14, Hgb 10.3 [...] 01/21/2018 Type 2 diabetes mellitus 08/03/2007 Immunizations Immunization Administration Dates Next Due Influenza TIV (IM) [...] Colorectal Cancer Screening: Sigmoidoscopy 2005 Pneumococcal Vaccine: 50+ Years (2 of 2 - PCV) 02/16/2010 02/16/2009 Diabetes: Ophthalmology Exam 09/02/2020 Diabetes: Pedal Pulse Checked 09/02/2020 Diabetes: Sensory Foot Exam 09/02/2020 Diabetes: Visual Foot Exam 09/02/2020 Diabetes: Hemoglobin A1C 09/21/2024 06/21/2024 Influenza Vaccine (Season Ended) 2025 10/17/2019, 05/28/2017 Pneumococcal Vaccine: Peds ( 0 to 5 Years) and At-Risk Patients (6 to 49 Years) Discontinued 02/16/2009 Hepatitis B Vaccine Aged Out No longe r eligible based on patient's age to complete this topic Insurance [facility] ([id number]) [facility] ([id number]) Care Teams Chairman Relationship Specialty Start Date End Date Catherine Cuellar MD PCP - General 08/13/20
--- OUTSIDE RECORDS SUMMARY | 2024-11-22 15:03 | XMS_ITS | Clinical Summary ---
Author Organization [facility] Address [address] [place] [address] Care Team Providers Care Hand Marker Name Role Phone Cordelia Moraes PA-C Primary Care Provider [phone] Source Comments PLEASE NOTE, if this patient [...] by mouth nightly at bedtime (Prescribed by [facility]) 024 Active alcohol swabsIndications: Type 2 diabetes mellitus with stage 3a chronic kidney disease, with long-term current use of insulin ([facility]) Use to test blood glucose three times daily. 100 Each 11 024 Active silver sulfADIAZINE (SILVADENE) 1 % cream [facility]/pharmacy #[id number] - [place], [place] [phone] 50 g Refills RemaininDays Supply: 30Sig: APPLY TOPICALLY TO NAIL BED DAILYSource: Surescripts (Fill History, Ambulatory)Auth orized by: CANDI KAYE Active triamcinolone (KENALOG) 0.5 % cream APPLY TO AFFECTED AREA TWICE DAILY FOR 2 WEEKS. THEN ON AND OFF NEEDED FOR FLARES. 15 g 1 Active metoprolol succinate XL (TOPROL-XL) 100 mg 24 hr tabletIndications :Heart failure with reduced ejection fraction, NYHA class III ([facility]) Take 1 Tablet by mouth once daily (Prescribed by [facility]) Active spironolactone (ALDACTONE) 25 mg tabletIndications :Heart failure with reduced ejection fraction, NYHA class III ([facility]) Take 1 Tablet by mouth once daily (Prescribed by [facility]) Active TRADJENTA 5 mg tabIndications:Ty pe 2 diabetes mellitus with stage 3a chronic kidney disease, with long-term current use of insulin ([facility]) Take 1 Tablet by mouth every morning For diabetes 90 Tablet 1 Active blood-glucose meter,continuous (FREESTYLE CLIF 3 READER) miscIndications:T ype 2 diabetes mellitus with stage 3a chronic kidney disease, with long-term current use of insulin ([facility]) Use to test blood glucose continuously. (Freestyle Clif 3 reader) 1 Each Active blood-glucose sensor (FREESTYLE CLIF 3 PLUS SENSOR) deviIndications:T ype 2 diabetes mellitus with stage 3a chronic kidney disease, with long-term current use of insulin ([facility]) Place 1 sensor to back of upper arm every 15 days. Use to monitor blood sugar continuously (Freestyle Clif 3 Plus) 2 Each Active BD LISA 2ND GEN PEN NEEDLE 32 gauge x 32 ndleIndications:T ype 2 diabetes mellitus with stage 3b chronic kidney disease, with long-term current use of insulin ([facility]) 1 to 3 (one to three) times daily Use to inject insulin as per order 100 Each Active aspirin [address] tablet TOME MONA TABLETA TODOS LOS D 90 Tablet 2 Active lancets (FREESTYLE LANCETS) 28 gaugeIndications: Type 2 diabetes mellitus with stage 3a chronic kidney disease, with long-term current use of insulin ([facility]) Use to test blood glucose three times daily. (Freestyle Lancets) 100 Each 024 Active blood sugar diagnostic stripsIndications :Type 2 diabetes mellitus with stage 3a chronic kidney disease, with long-term current use of insulin ([facility]) Use to test blood glucose three times daily. (Freestyle Lite) 100 Each 11 024 Active cholecalciferol (VITAMIN D-3) 50 mcg (2,000 unit) capsule TOME 1 CAPSULA POR VIA ORAL TODOS [place] 90 Capsule 1 025 Active apixaban (ELIQUIS) 5 mg tabIndications:Di lated cardiomyopathy ([facility]),Implant able cardioverter-defi brillator (ICD) in situ Take 1 Tablet by mouth 2 (two) times Daily 180 Tablet 1 025 Active omeprazole (PRILOSEC) [address] capsule TOME MONA CAPSULA TODOS [place] EN LA MANANA ANTES DEL DESAYUNO 90 Capsule 1 025 Active ENTRESTO 24-26 mg tabIndications:He art failure with reduced ejection fraction, NYHA class III ([facility]) Take 1 Tablet by mouth 2 (two) times daily (Prescribed by [facility]) 60 Tablet 2 025 Active gabapentin (NEURONTIN) 600 mg tabletIndications :Fibromyalgia TOME MONA TABLETA ALISTAIR VECES AL ANANTH 270 Tablet 025 Active DAILY-MOSES, WITH FOLIC ACID, 400 mcg tabIndications:Ch ronic kidney disease, stage 3b ([facility]) TOME 1 TABLETA POR VIA ORAL TODOS [place] 90 Tablet 1 025 Active furosemide (LASIX) 40 mg tabletIndications :Heart failure with reduced ejection fraction, NYHA class III ([facility]) TOME 1 TABLETA POR VIA ORAL DOS VECES AL ANANTH 180 Tablet 1 025 Active empagliflozin (JARDIANCE) 25 mg tabIndications:Ty pe 2 diabetes mellitus with stage 3b chronic kidney disease, with long-term current use of insulin ([facility]),Stage 3 chronic kidney disease due to type 2 diabetes mellitus ([facility]),Heart failure with reduced ejection fraction, NYHA class III ([facility]) Take 1 Tablet by mouth every morning (Take with plenty of water throughout the day) stop 10 mg 30 Tablet 11 025 Active loratadine (CLARITIN) 10 mg tablet TOME 1 TABLETA POR VIA ORAL TODOS [place] CUANDO SEA NECESARIO FOR ALLERGIES 90 Tablet 025 Active methocarbamoL (ROBAXIN) 750 mg tabletIndications :Fibromyalgia TAKE 1 TABLET BY MOUTH 2 TIMES DAILY NEEDED FOR OTHER (SPASM). 90 Tablet 025 Active fluticasone (FLONASE) 50 mcg/actuation nasal spray PLACE 1 SPRAY IN BOTH NOSTRILS ONCE DAILY NEEDED FOR RHINITIS OR ALLERGIES!! 32 mL 1 025 Active colchicine 0.6 mg tabletIndications :Gout of right foot, unspecified cause, unspecified chronicity 2 tablets first day and then one tablet daily after. 90 Tablet 1 025 Active zolpidem (AMBIEN) 5 mg tabletIndications :Insomnia, unspecified type Take 1 Tablet by mouth nightly at bedtime NEEDED FOR SLEEP!! 30 Tablet 025 Active fluticasone (FLONASE) 50 mcg/actuation nasal spray Place 1 [place] in both nostrils once daily NEEDED FOR RHINITIS OR ALLERGIES!! 16 g 2 024 2024 Discontinued allopurinoL (ZYLOPRIM) 100 mg tabletIndications :Idiopathic gout, unspecified chronicity, unspecified site TOME 1 TABLETA POR VIA ORAL TODOS [place] 90 Tablet 025 2024 Discontinued(T herapy completed/Not needed) zolpidem (AMBIEN) 5 mg tabletIndications :Insomnia, unspecified type Take 1 Tablet by mouth [...] pacemaker 12/30/2022 12/30/2022 Overview (06/21/2024): 06/14/24 at [facility] Plan ~Labs today ~Refer back [...] messaged for pt's arm MRI 05/12/24 at [facility] Plan ~24-Holter monitor to assess PVC burden 04/08/24 at [facility] Plan ~Reduce Lasix to 20 [...] Device to assess PVC burden 03/04/24 at [facility] Plan: - increase entresto to 97-103mg BID - pt will monitor wt at home and repeat labs in a week, if wt has not improved would double lasix dose for 3-4 days - f/u in 1 months - would repeat ekg and if QRS wide with LBBB pattern ask EP if we need to upgrade to EKG/ECG TECHNICIAN given low EF and recent admission with decrease in GDMT 08/25/23 at [facility] Cardiology Shared Clinical Summary 1. [...] reduced e jection fraction, NYHA class III ([facility]) 12/30/2022 12/30/2022 Overview (10/03/2024): 08/01/24 at [facility] NYHA class III stage C [...] exercise test for risk stratification 06/14/[address] [facility] Labs today Refer back to EP for [...] messaged for pt's arm MRI 05/12/24 at [facility] 24-Holter monitor to assess PVC burden 04/08/24 at [facility] Reduce Lasix to 20 mg as needed weight gain greater than 3 pounds / 1-2 days, increased leg swelling, increased shortness of breath Stop carvedilol 12.5 mg twice daily and start metoprolol XL 100 mg daily Pt encouraged to hydrate in the range of 8 glasses fluid daily Repeat Sleep study in-lab Message to Device to assess PVC burden 03/04/24 at [facility] Plan: increase entresto to 97-103mg BID Pt will monitor wt at home and repeat labs in a week, if wt has not improved would double lasix dose for 3-4 days F/u in 1 months - would repeat ekg and if QRS wide with LBBB pattern ask EP if we need to upgrade to EKG/ECG TECHNICIAN given low EF and recent admission with decrease in GDMT 08/25/23 at [facility] Cardiology Shared Clinical Summary 1. [...] Post op right lobectomy DOS 11/10/22 at [facility]. Anemia of chronic renal failure 11/30/2020 12/30/2022 Dilated cardiomyopathy (HCC-CMS) 11/30/2020 12/30/2022 Overview (10/03/2024): 08/01/24 at [facility] NYHA class III stage C [...] exercise test for risk stratification 06/14/[address] [facility] Labs today Refer back to EP for [...] messaged for pt's arm MRI 05/12/[address] [facility] 24-Holter monitor to assess PVC burden 04/08/[address] [facility] Reduce Lasix to 20 mg as needed weight gain greater than 3 pounds / 1-2 days, increased leg swelling, increased shortness of breath Stop carvedilol 12.5 mg twice daily and start metoprolol XL 100 mg daily Pt encouraged to hydrate in the range of 8 glasses fluid daily Repeat Sleep study in-lab Message to Device to assess PVC burden 03/04/24 at [facility] Plan: increase entresto to 97-103mg BID Pt will monitor wt at home and repeat labs in a week, if wt has not improved would double lasix dose for 3-4 days F/u in 1 months - would repeat ekg and if QRS wide with LBBB pattern ask EP if we need to upgrade to EKG/ECG TECHNICIAN given low EF and recent admission with decrease in GDMT 08/25/23 at [facility] Cardiology Shared Clinical Summary 1. [...] se due to type 2 diabetes mellitus ([facility]) 08/17/2018 12/30/2022 Overview (09/28/2024): 08/26/24 at [facility] CKDIII - renal function back to baseline. Serum creatinine 1.28. continue current dose of diuretics. DM - continue SGLT-2 inhibitor, no changes made, maintain A1c <7%, avoid NSAIDs Gout - on allopurinol - does not want to take prednisone, encouraged to follow- up with rheumatology. 04/25/24 at [facility] - Dr. Omayra Chapin Echocardiogram [...] Referred by Endo to Dr Cornel Cutler ([facility]). Latest Cr 06/06/19 1.14, Hgb 10.3 Constipation 01/21/2018 12/30/2022 Eczema 01/21/2018 12/30/2022 Gout 01/21/2018 12/30/2022 Overview (12/30/2022): 2018 Left toe 2018 Left toe Implantable cardioverter-defibrillator (ICD) in situ 01/21/2018 12/30/2022 Overview (10/30/2023): [facility] - 08/25/23 Cardiology Shared Clinical [...] disease, with long-term current use of insulin ([facility]) 08/03/2007 12/30/2022 Overview (06/22/2024): DM dx: ~7222-1522 per patient reports Glucometer: [employer]ira [employer]style Clif 3 Plus Current Diabetes RX: Lantus Solostar - inject 8 units daily at bedtime Jardiance 10 mg daily every morning (CKD/HF) MARCO-I/ARB: Entresto 24/26 mg twice daily (prescribed by [facility]) Statin: Atorvastatin 40 mg daily at bedtime (prescribed by [facility]) Pneumococcal vaccine: PPSV23 (02/16/09) Diabetes foot exam: 02/26/23, podiatry referral sent on 10/09/23 by PCP Diabetes retinal exam: 02/09/24 at [facility] No retinopathy Meibomian Gland Dysfunction OU. Hot compresses for 10 minutes 4 times daily. Monitor. Pterygium OS. Mildly inflammed pterygium, consider Lotemax if irritation worsens. Resolved Problems Problem Noted Date Diagnosed Date Resolved Date Obesity 12/30/2022 12/30/2022 09/28/2024 Chronic systolic heart failure ([facility]) 11/30/2020 12/30/2022 10/28/2023 Overview (12/30/2022): Dr. Jens Rosas, [facility] Dr. Jens Rosas, [facility] Diabetic nephropathy associa tanisha with type 2 diabetes mellitus ([facility]) 11/30/2020 12/30/2022 10/28/2023 Encounters Date Type Department Care Team Description 11/09/2024 9:40 AM EDT Office Visit [address] [phone] Tomasi, [place], [employer] Kristofer, Iris Gout of right foot, unspecified cause, unspecified chronicity (Primary Dx); Insomnia, unspecified type 09/30/2024 1:40 PM EST Office Visit [address] [phone] Cordelia Moraes PA-C Annual physical exam (Primary Dx); Immunization due; Type 2 diabetes mellitus with stage 3b chronic kidney disease, with long-term current use of insulin (HCC-CMS); Stage 3 chronic kidney disease due to type 2 diabetes mellitus (HCC-CMS); Essential hypertension; Heart failure with reduced ejection fraction, NYHA class III (HCC-CMS); Carpal tunnel syndrome of right wrist 09/28/2024 1:20 PM EST Office Visit [address] [phone] Reza Britt PharmD Type 2 diabetes mellitus with stage 3b chronic kidney disease, with long-term current use of insulin (HCC-CMS) (Primary Dx); Stage 3 chronic kidney disease due to type 2 diabetes mellitus (HCC-CMS); Essential hypertension; Heart failure with reduced ejection fraction, NYHA class III (HCC-CMS); Cardiac pacemaker; Hyperlipidemia LDL goal <100; Dilated cardiomyopathy (HCC-CMS) 09/16/2024 Interim Notes [address] [phone] Cheyenne Saucedo [place] from Last 3 Months Immunizations Immunization Administration Dates Next Due Flu, Preservative Free [...] Tobacco: Never Alcohol Use Standard Drinks/Week Comments Never 0 [...] Sign Reading Time Taken Comments Blood Pressure 110/84 11/09/2024 8:58 AM EDT Pulse 64 11/09/2024 8:58 AM EDT Temperature 36.4 ??C (97.5 ??F) 11/09/2024 8:58 AM ED T Respiratory Rate 16 11/09/2024 8:58 AM EDT Oxygen Saturation 97% 09/30/2024 1:32 PM EST Inhaled Oxygen Concentration - - Weight 58.1 kg (128 lb) 11/09/2024 8:58 AM EDT Height 149.9 cm (4' 11 ) 11/09/2024 8:58 AM EDT Body Mass Index 25.85 11/09/2024 8:58 AM EDT Plan of Treatment Upcoming Encounters Date Type Department Care Team (Late st Contact Info) Description 11/24/2024 2:00 PM EDT Telemedicine Visit [facility] [address] [place] [address] Reza Britt, PharmD [address] [place] [address] Health Maintenance Due Date Last Done Comments Dental Examination [address] CT Colonography 2001 FIT/gFOBT 2001 Fecal DNA 2001 Flexible Sigmoidoscopy 2001 Imm-Pneumococcal 65+ (2 of 2 - PCV) 02/16/2010 02/16/2009 Bone Density Screening 2021 Imm-Zoster, Recombinant (2 of 2) 04/23/2023 02/26/2023 Diabetes Foot Exam 02/27/2024 02/26/2023 Urine Albumin Creatinine Ratio Screening 02/27/2024 02/26/2023 Lipid Screening 10/27/2024 10/28/2023, 12/03, 09/30/2021 [id number] ( - season) 2024 10/29/2020, 09/30/2020 Postponed from 04/03/2024 (Patient postponement) Diabetes HbA1c 12/19/2024 06/21/2024, 10/02, 12/30/2022, Additional history exists Depression Monitoring 12/28/2024 09/30/2024 , 03/14/2024, 10/09/2023, [...] disease, with long-term current use of insulin ([facility]) MEDICATIONS SCANNED DOCUMENT 09/15/2024 3:00 AM EST PROCEDURE SCANNED DOCUMENT 09/14/2024 3:00 AM EST REFERRAL SCANNED DOCUMENT 08/26/2024 3:00 AM EST LAB SCANNED DOCUMENT 08/26/2024 3:00 AM EST COMPREHENSIVE METABOLIC PANEL Routine 06/21/2024 2:31 PM EST Type 2 diabetes mellitus with stage 3b chronic kidney disease, with long-term current use of insulin ([facility]) HGA1C W/EAG Routine 06/21/2024 2:31 PM EST Type 2 diabetes mellitus with stage 3b chronic kidney disease, with long-term current use of insulin ([facility]) REFERRAL FOR MAMMOGRAM Routine 3:00 AM EDT Screening mammogram, encounter for REFERRAL TO DIABETIC RETINAL EXAM Routine 02/09/2024 3:00 AM EDT Type 2 diabetes mellitus with stage 3a chronic kidney disease, with long-term current use of insulin ([facility]) LIPIDS W RFLX TO DIRECT LDL Routine 10/28/2023 10:18 AM EDT Preoperative clearance Type 2 diabetes mellitus with stage 3b chronic kidney disease, with long-term current use of insulin ([facility]) MICROALBUMIN/CREATININ E RATIO, URINE, RANDOM Routine 02/26/2023 2:03 PM EDT Type 2 diabetes mellitus with stage 3b chronic kidney disease, with long-term current use of insulin ([facility]) HEPATITIS C AB W/RFLX HCV RNA, QT, RT PCR Routine 12/30/2022 10:40 AM EDT Encounter to establish care from Last 3 Months or Most Recently Relevant to Health Maintenance Results * (ABNORMAL) GLUCOSE, BLOOD BY GLUCOSE MONITORING DEVICE (CLIA WAIVED)POCT (09/28/2024 1:32 PM EST) GLUCOSE 155(A) 70 - 100 mg/dL [facility] OFFICE POCT Capillary Blood Blood / Unknown 1:32 PM EST Result [facility] Reza Naegllois PharmD LAB - BLOOD DRAW Final Re sult [facility] POCT * MEDICATIONS SCANNED DOCUMENT (09/15/2024 3:00 AM EST) 09/15/2024 3:00 AM EST Reza Balwinder PharmD SCAN MEDS OTHER ORDERS Fi nal Result * PROCEDURE SCANNED DOCUMENT (09/14/2024 3:00 AM EST) 09/14/2024 3:00 AM EST Cordelia Moraes PA-C SCAN PROCEDURES Final Result * REFERRAL SCANNED DOCUMENT (08/26/2024 3:00 AM EST) 08/26/2024 3:00 AM EST Cordelia Moraes PA-C SCAN REFERRAL Final Result * LAB SCANNED DOCUMENT (08/26/2024 3:00 AM EST) 08/26/2024 3:00 AM EST Cordelia Moraes PA-C SCAN LAB Final Result * (ABNORMAL) HGA1C W/EAG (06/21/2024 2:31 PM EST) HEMOGLOBIN A1C 6.3(H) <5.7 % of total Hgb [facility] [employer] [facility] Comment: For someone without known diabetes, a [...] diabetes for children. EAG (MG/DL) 134 mg/dL [facility] EAG (MMOL/L) 7.4 mmol/L [facility] Blood Blood / Unknown 06/21/2024 2 :31 PM EST 06/21/2024 2:32 PM EST Narrative [address] [employer] I [facility] - 06/22/2024 12:48 PM EST FASTING:NO us Cordelia Moraes PA-C LAB - BLOOD DRAW Final Resul t [facility] [address] [address], [facility] [address] [phone] * (ABNORMAL) COMPREHENSIVE METABOLIC PANEL (06/21/2024 2:31 PM EST) [facility] GLUCOSE 101 65 - 139 mg/dL [facility] Comment: ?Non-fasting reference interval UREA NITROGEN (BUN) 24 7 - 25 mg/dL [facility] CREATININE (blood) 1.66(H) 0.50 - 1.05 mg/dL [facility] EGFR 33(L) > OR = 60 mL/min/1. 73m2 [facility] BUN/CREATININE RATIO 14 6 - 22 (calc) [facility] SODIUM 134(L) 135 - 146 mmol/L [facility] POTASSIUM 4.4 3.5 - 5.3 mmol/L [facility] CHLORIDE 94(L) 98 - 110 mmol/L [facility] CARBON DIOXIDE 28 20 - 32 mmol/L [facility] CALCIUM 9.6 8.6 - 10.4 mg/dL [facility] PROTEIN, TOTAL 7.6 6.1 - 8.1 g/dL [facility] ALBUMIN 4.3 3.6 - 5.1 g/dL [facility] GLOBULIN 3.3 1.9 - 3.7 g/dL (calc) [facility] ALBUMIN/GLOBULI N RATIO 1.3 1.0 - 2.5 (calc) [facility] BILIRUBIN, TOTAL 0.4 0.2 - 1.2 mg/dL [facility] ALKALINE PHOSPHATASE 79 37 - 153 U/L [facility] AST 14 10 - 35 U/L [facility] ALT 10 6 - 29 U/L [facility] Blood Blood / Unknown 06/21/2024 2 :31 PM EST 06/21/2024 2:32 PM EST Narrative [facility] - 06/22/2024 12:48 PM EST FASTING:NO us Cordelia Moraes PA-C LAB - BLOOD DRAW Edited Resu lt - Final [facility] [address] [address], [facility] [address] [address] * REFERRAL FOR MAMMOGRAM (04/27/2024 3:00 AM EDT) 04/27/2024 3:00 AM EDT us Cordelia Moraes PA-C IMG RFL MAMMO Edited Resul t - Final * REFERRAL TO DIABETIC RETINAL EXAM (02/09/2024 3:00 AM EDT) 02/09/2024 3:00 AM EDT Reza rBitt PharmD REFERRAL Edited Re sult - Final * (ABNORMAL) LIPIDS W RFLX TO DIRECT LDL (10/28/2023 10:18 AM EDT) CHOLESTEROL, TOTAL 131 <200 mg/dL [facility] HDL CHOLESTEROL 35(L) > OR = 50 mg/dL [facility] TRIGLYCERIDES 158(H) <150 mg/dL [facility] LDL-CHOLESTEROL 72 99 mg/dL (calc) [facility] Comment: Reference range: <100 Desirable range <100 mg/dL for primary prevention; ?? <70 mg/dL for patients with CHD or diabetic patients with > or = 2 CHD risk factors. LDL-C is now calculated using the Viky calculation, which is a validated novel method providing better accuracy than the Friedewald equation in the estimation of LDL-C. Len GARCIA et al. JENNIFER. 2013;310(19): 0717-7759 (http://education.Sun Animatics/faq/HSQ039) CHOL/HDLC RATIO 3.7 <5.0 (calc) [facility] NON-HDL CHOLESTEROL 96 <130 mg/dL (calc) [facility] Comment: For patients with diabetes plus 1 major ASCVD risk factor, treating to a non-HDL-C goal of <100 mg/dL (LDL-C of <70 mg/dL) is considered a therapeutic option. Blood Blood / Unknown 10/28/2023 1 0:18 AM EDT 10/28/2023 10:18 AM EDT Narrative [facility] - 10/29/2023 9:14 AM EDT FASTING:YES us Cordelia Moraes PA-C LAB - BLOOD DRAW Final Resul t [facility] [address] [place] [phone], [facility] [address] [place] [phone] * MICROALBUMIN/CREATININE RATIO, URINE, RANDOM (02/26/2023 2:03 PM EDT) CREATININE, RANDOM URINE 37 20 - 275 mg/dL [facility] MICROALBUMIN <0.2 mg/dL [facility] Comment: Reference Range Not established MICROALBUMIN/CREA TININE RATIO, RANDOM URINE NOTE <30 [facility] Comment: NOTE: The urine albumin value is [...] BLOOD DRAW Final Result Performing Organization Address [facility] Co de Phone Number [facility] [address] [place] [phone], [employer] [address] [place] [phone] * HEPATITIS C AB W/RFLX HCV RNA, QT, RT PCR (12/30/2022 10:40 AM EDT) HEPATITIS C ANTIBODY NON-REACT OBI NON-REACT OBI [facility] SIGNAL TO CUT-OFF 0.11 <1.00 [facility] Comment: HCV antibody was non-reactive. There is no laboratory evidence of HCV infection. In most cases, no further action is required. However, if recent HCV exposure is suspected, a test for HCV RNA (test code 75186) is suggested. For additional information please refer to http://education.Un[employer]/faq/JJJ63p4 (This link is being provided for informational/ educational purposes only.) Blood Blood / Unknown 12/30/2022 1 0:40 AM EDT 12/30/2022 10:40 AM EDT Narrative [facility] - 12/31/2022 7:57 AM EDT FASTING:YES Cordelia Moraes PA-C LAB - BLOOD DRAW Edited Resu lt - Final Performing Organization Address [facility] de Phone Number [facility] [address] [address], [employer] [address] [place] [phone] from Last 3 Months or Most Recently Relevant to Health Maintenance Insurance [facility] Member Subscriber Plan / Payer (Ef fective 2021-Present) Name:Lida Peoples Relation to Subscriber:Self Name:Lida Peoples Payer ID:[id number] Group ID:Not on file Type:Indemnity Address: [place] [address] [address] [id number] Care Teams Hand Marker Relationship Specialty Start Date End Date Cordelia Moraes PA-C [address] [place] [phone] PCP - General Internal Medicine 09/05/22
--- OUTSIDE RECORDS SUMMARY | 2024-11-22 15:03 | XMS_ITS | Encounter Summary ---
Author Organization [facility] Address [address] [place] [address] Phone Care Team Providers Care Casting Inspector Name Role Phone Catherine Cuellar MD Primary Care Provider [phone] Reason for Visit * Reason Comments Med Refill Encounter Details Date Type Department Care Team (Late st Contact Info) Description 05/08/2022 Refill [facility] [address] [place] [address] Talib Larkin MD Social History [...] on filedocumented in this encounter Care Teams Casting Inspector Relationship Specialty Start Date End Date Catherine Cuellar MD PCP - General 08/13/20 documented as of this encounter
--- OUTSIDE RECORDS SUMMARY | 2024-11-22 15:03 | XMS_ITS | Clinical Summary ---
Author Organization [address] [place] [address] Address [address] [place] [address] Phone Care Team Providers Care Telecom Coordinator Name Role Phone Cordelia Moraes Primary Care [...] HFrEF (heart failure with reduced ejection fraction) ([facility] V24, [facility] V28) 08/01/2024 Overview (08/01/2024): Dr. Jens Rosas, [facility] cardiology Dilated cardiomyopathy ([facility] V24, [facility] V28 ) 08/01/2024 Overview (08/01/2024): 05/2017 EF 40% Dr. Jens Rosas -[facility] cardiology. 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 Referred by Josue to Dr Cornel Cutler ([facility]). Latest Cr 06/06/19 1.14, Hgb 10.3 Anemia 01/21/2018 Overview (08/01/2024): Chronic. Latest Hgb 10.3 (06/06/19) Chronic low back pain 01/21/2018 Constipation 01/21/2018 Depression 01/21/2018 Diabetic peripheral neuropathy ([facility] V24, [facility] V28) 01/21/2018 Eczema 01/21/2018 Gout 01/21/2018 Overview (08/01/2024): 2018 Left toe Herpes zoster 01/21/2018 Overview (08/01/2024): 02/2016 ICD (implantable cardioverter-defibrillator) in place 01/21/2018 Overview (08/01/2024): For primary prevention Insomnia 01/21/2018 Plantar fasciitis of left foot 01/21/2018 Type 2 diabetes mellitus wit h neurological manifestations ([facility] V24, [facility] V28) 01/21/2018 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 ([facility] V24, [facility] V28) 08/03/2007 Immunizations Name Administration Dates Next Due [...] PROCEDURE: HISTORICAL APPENDECTOMY OTHER SURGICAL HISTORY PROCEDURE: TX BIOPSY THYROID PERCUTANEOUS CORE NEEDLE PACEMAKER IMPLANT PROCEDURE: HISTORICAL PACEMAKER; COMMENT: cardiomyopathy Medical History Medical History Date Comments HTN (hypertension) DX:HTN (hyper tension) Hypercholesteremia DX:Hyperchole steremia 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 ([facility] V24, [facility] V28) 2007 DX:Diabetes type 2 with atherosclerosis of arteries of extremities ([facility]) Fibromyalgia DX:Fibromyalgia Dilated cardiomyopathy ([facility] V24, [facility] V28) DX:Dilated cardiomyopathy (H CC); COMMENT: 05/2017 EF 40% CHF (congestive heart failur e) ([facility] V24, [facility] V28) DX:CHF (congestive heart cheryl lure) ([facility]) Gout 01/21/2018 DX:Gout; COMMENT : Left toe Depression 01/21/2018 DX:Depression Type 2 diabetes mellitus wit h neurological manifestations ([facility] V24, [facility] V28) 01/21/2018 DX:Type 2 diabetes mellitus with neurological manifestations ([facility]) Diabetic peripheral neuropat hy ([facility] V24, [facility] V28) 01/21/2018 DX:Diabetic peripheral neuro cruz ([facility]) Chronic low back pain 01/21/2018 DX:Chronic low [...] 1:15 PM EDT Consult Orthopedic Surgery - [place] [address] [place] [id number] [place], [place] [address] [address] Health Maintenance Due Date Last Done Comments Breast Cancer Screening 1955 Diabetes: Annual Foot Exam 1966 Diabetes: Annual Retina Eye Exam 1966 Zoster Vaccines (1 of 2) 2006 Pneumococcal Vaccine: 50+ Years (2 of 2 - PCV) 02/16/2010 02/16/2009 RSV Immunization Adult Patients (1 - Risk 60-74 years 1-dose series) 2016 DTaP,Tdap,and Td Vaccines (2 - Td or Tdap) 02/16/2019 02/16/2009 COVID-19 Vaccine (3 - Modern a risk series) 11/26/2020 10/29/2020, 09/30/2020 Falls Risk Assessment 07/12/2022 Medicare Annual Wellness Visit 07/12/2022 Osteoporosis Screening (Bone Density Screening) 07/12/2022 Social Influencers of Health Screening 07/12/2022 Diabetes: Annual Urine Albumin-Creatinine Ratio (uACR) 07/19/2022 12/03/2018 Diabetes: Blood Sugar Contro l Test (HGBA1C) 07/19/2022 04/29/2019 Diabetes: Annual GFR (Glomerular Filtration Rate) 09/30/2022 09/30/2021 Hypertension/CHF/CAD Annual BMP Blood Test 09/30/2022 09/30/2021 Influenza Vaccine (Season Ended) 2025 10/17/2019, 05/28/2017 Depression Screening 09/30/2025 09/30/2024 Colorectal Cancer [...] age to complete this topic Meningococcal B Vaccine Aged Out No l onger eligible based on patient's age to complete this topic RSV Immunization Patients Under 20 months Aged Out No longer eligible b ased on patient's age to complete this topic Varicella Vaccines Aged Out No longer eligible based on patient's age to complete this topic Procedures Procedure Name Priority Date/Time Associated Diagnosis Comments ANNUAL BMP BLOOD TEST Routine 09/30/2021 LIPID PANEL Routine 09/30/2021 COLONOSCOPY Routine 11/05/2020 HEMOGLOBIN A1C Routine 04/29/2019 URINE ALBUMIN CREATININE RATIO Routine 12/03/2018 HEPATITIS C SCREENING Routine 12/16/2017 from Last 3 Months or Most Recently Relevant to Health Maintenance Results * Annual BMP Blood Test (09/30/2021) Pathologist [facility] Annual BMP Blood Test abstracted Historical Provider HEALTH MAINTENANCE Final Result * (ABNORMAL) Lipid panel (09/30/2021) [facility] LDL/HDL Ratio 3 0 - 4 Triglycerides 181(A) 0 - 150 mg/dL Cholesterol 148 0 - 200 mg/dL HDL 45 >=40 mg/dL LDL Cholesterol 68 0 - 100 mg/dL Blood Venous blood specimen / Unknown Historical Provider LAB BLOOD ORDERABLES Dagmar l Result * Colonoscopy (11/05/2020) [facility] Colonoscopy normal, abstracted Anatomical Region Laterality Modality Other Historical Provider HEALTH MAINTENANCE Final Result * Hemoglobin A1c (04/29/2019) [facility] Hemoglobin A1C 6.0 <=6.5 % Blood Venous blood specimen / Unknown Historical Provider LAB BLOOD ORDERABLES Dagmar l Result * Urine Albumin Creatinine Ratio (12/03/2018) Urine Albumin Creatinine Ratio abstracted Historical Provider HEALTH MAINTENANCE Final Result * Hepatitis C Screening (12/16/2017) Hepatitis C Screening abstracted Historical Provider HEALTH MAINTENANCE Final Result from Last 3 Months or Most Recently Relevant to Health Maintenance Insurance [employer] Member Subscriber Plan / Payer (Ef fective 2021-Present) Name:Lida Peoples Relation to Subscriber:Self Name:Lida Peoples Payer ID:[id number] Group ID:[id number] Type:Not on file Address: [facility] [address] [id number] MEDICAID - [place] Care Teams Telecom Coordinator Relationship Specialty Start Date End Date Cordelia Moraes PA [address] [place] [address] PCP - General 10/17/24
== END 2024-11-22 12:39 | disposition home or self-care (01) ==
LOC: HO.US 12:38
PROVIDERS: Visit Provider Student in an Organized Health Care Education/Training Program
DX: E04.2 Nontoxic multinodular goiter (principal)
CPT/HCPCS: 76536

== ENCOUNTER → 2024-11-22 12:40 | Outpatient (BNV) | payer OTHER, SELFPAY | PROVIDERS: Visit Provider Radiology Diagnostic Radiology | DX: E04.2 Nontoxic multinodular goiter (principal) | CPT/HCPCS: 76536 ==

== ENCOUNTER 2024-12-19 12:51 | Outpatient (AMB) | payer OTHER, SELFPAY ==
--- NOTE | 2024-12-19 13:01 | MHC.OFFVIS ---
Vital Signs 12/19/24 13:03 Height 4 ft 11 in Weight 131 lb 9.855 oz BMI 26.6 BP 94/58 L Blood Pressure Location Lt brachial Position Sitting Pulse 76 Pulse Source Pulse Oximeter Pulse Oximetry (%) 98 Oxygen Delivery Method Room Air Intake Visit Reasons: MNG Intake Note: Patient present today for MNG office visit. Technical Internship Required: Yes Technical Internship Language: [employer] Attendant Services: Technical Internship Present Technical Internship Name: Kana [id number] Information Interpreted: non-clinical & clinical Accompanied by: Self / Same As Patient Allergies egg [EGG] Allergy (Intermediate, Verified 12/19/24 13:04) RASH Fish Containing Products Allergy (Intermediate, Verified 12/19/24 13:04) RASH oxycodone [OXYCODONE] Allergy (Intermediate, Verified 12/19/24 13:04) RASH acetaminophen [From PERCOCET] Allergy (Unknown, Verified 12/19/24 13:04) RASH/ITCHING codeine [CODEINE] Allergy (Unknown, Verified 12/19/24 13:04) ITCHING hydrocodone [From VICODIN] Allergy (Unknown, Verified 12/19/24 13:04) UNKNOWN lisinopril [LISINOPRIL] Allergy (Unknown, Verified 12/19/24 13:04) UNKNOWN metoclopramide [From REGLAN] Allergy (Unknown, Verified 12/19/24 13:04) UNKNOWN naproxen [Naprosyn] Allergy (Unknown, Verified 12/19/24 13:04) Unknown tramadol Allergy (Unknown, Verified 12/19/24 13:04) Unknown HPI Comments Details: 69 YO Female with a PMHx of a NTMNG status post right hemithyroidectomy 11/10/[address] 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 HPI She has a longstanding history of a multinodular thyroid and has undergone multiple FNA biopsies in the past as detailed below: 12/10/2017: RMP 1.6 cm - Benign cytology RLP 1.2 cm - Benign cytology 01/20/2019: RMP 1.8 cm - Atypia of Undetermined Significance (bethesda category III), Affirma Benign 05/24/2020: RMP 2.4 cm - Benign cytology She then had a repeat US 06/20/2021 which revealed growth of her RMP and RLP nodules. She was scheduled for FNA biopsy and underwent this with IR on 01/06/2022 with her RMP 1.2 cm thyroid nodule benign (bethesda category II) and her RLP 1.6 cm thyroid nodule nondiagnostic. She then represented for an FNA biopsy with me 04/09/2022 with identification of a new RMP 1.2 cm hypoechoic nodule with irregular borders. FNA was recommended of this nodule, but the patient refused, and instead requested a R hemithyroidectomy. She underwent her right hemithyroidectomy 11/10/2022 with official surgical path benign, revealing NIFT-P. 1.2 cm. She is now followed for left-sided nodules. 04/07/2023: thyroid ultrasound showed a left superior 0.4 cm cystic nodule, a left superior medial 0.8 cm cyst, and a left mid 1 cm solid, hypoechoic TR 4 category nodule, another left mid 1.2 cm solid, isoechoic TR 3 category nodule. The last two meet criteria for follow up. Interval history 11/22/2024: Ultrasound of the thyroid reviewed by myself, shows stable size of the left-sided nodules. She has denied any compressive symptoms. She denies any symptoms of hyper or hypothyroidism. She denies any personal history of radiation to the head or the neck. She denies any family history of thyroid cancer. Physical exam General: sitting comfortably in no acute distress HEENT: normocephalic/atraumatic, Neck: supple, no palpable lymph nodes, palpable left sided 1 cm nodule Cardiac: normal heart sounds Pulm: normal breath sounds B/L, no added breath sounds Abd: not distended, no tenderness Extremities: no edema, no signs of myxedema Laboratory Tests 08/26/24 10:59 TSH 1.49 Free T4 0.86 US THYROID 11/22/24 CLINICAL INFORMATION: Nontoxic multinodular goiter. COMPARISON: April 07, 2023. TECHNIQUE: Linear transducer grayscale and color Doppler examination with attention to the region of the thyroid. FINDINGS: SIZE: Measurements of the thyroid lobes and nodules are given in sagittal, anteroposterior and transverse dimensions respectively. Right Thyroid Lobe: Status post hemithyroidectomy. Left Thyroid Lobe: 3.7 x 1.4 x 1.8 cm, volume 4.7 mL. Previously 4.0 x 1.7 x 1.7 cm and volume: 6 cc. Parenchyma: The gland echotexture is heterogeneous. Thyroid vascularity is normal. Isthmus: 0.3 cm in maximum AP dimension. Previously 0.3 cm. Estimated total number of nodules greater than or equal to 1 cm: 1. Gifted Program Teacher nodules are described as follows: 1. Location: Midportion left lobe. Size: 1.2 x 0.6 x 1.2 cm, volume 0.471 mL. Nodule characteristics: Composition: Solid/almost completely solid (2). Echogenicity: Isoechoic (1). Shape: Not taller than wide (0). Margins: Ill-defined (0). Echogenic Foci: None (0). ACR TI-RADS total points: 3 ACR TI-RADS category: 3 2. Location: Midportion, left lobe. Size: 0.6 x 0.3 x 0.7 cm, volume 0.0 58 mL. Nodule characteristics: Composition: Cystic(0). Echogenicity: Anechoic (0). Shape: Not taller than wide (0). Margins: Smooth (0). Echogenic Foci: None (0). ACR TI-RADS total points: 0 ACR TI-RADS category: 1 3. Location: Midportion, left lobe. Size: 0.4 x 0.2 x 0.3 cm, volume 0.014 mL. Nodule characteristics: Composition: Spongiform (0). Echogenicity: Anechoic (0). Shape: Not taller than wide (0). Margins: Smooth (0). Echogenic Foci: None (0). ACR TI-RADS total points: 0 ACR TI-RADS category: 1 4. Location: Lower pole, left lobe. Size: 0.5 x 0.4 x 0.6 cm, volume 0.0 63 mL. Nodule characteristics: Composition: Mixed cystic and solid (1). Echogenicity: Hypoechoic (2). Shape: Not taller than wide (0). Margins: Ill-defined (0). Echogenic Foci: None (0). ACR TI-RADS total points: 3 ACR TI-RADS category: 3 NODES: No lymphadenopathy is seen in the tissue surrounding the thyroid gland. US/US thyroid IMPRESSION: ACR TI RADS 3. Status post right hemithyroidectomy. US THYROID 04/07/23 CLINICAL INFORMATION: Nontoxic multinodular goiter. COMPARISON: Ultrasound soft tissue head/neck thyroid dated 06/20/2021 and 01/02/2020. TECHNIQUE: Linear transducer grayscale and color Doppler examination with attention to the region of the thyroid. FINDINGS: SIZE: Measurements of the solitary left thyroid lobe and nodules are given in sagittal, anteroposterior and transverse dimensions respectively. Right Thyroid Lobe: Surgically absent. Left Thyroid Lobe: 4.0 x 1.7 x 1.7 cm, volume 6.0 mL. Previously 4.9 x 1.1 x 1.8 cm, volume 5.1 mL. Parenchyma: The gland echotexture is homogeneous. Thyroid vascularity is increased. Isthmus: 0.3 cm in maximum AP dimension. Previously 0.3 cm. Estimated total number of nodules greater than or equal to 1 cm: 2. Gifted Program Teacher nodules are described as follows: 1. Location: Left superior. Size: 0.4 x 0.3 x 0.4 cm, volume 0.03 mL. Previously: 0.4 x 0.3 x 0.4 cm, volume 0.03 mL. Nodule characteristics: Composition: Cystic(0). ACR TI-RADS total points: 0 Previous: 0 ACR TI-RADS category: 1 Previous: 1 Significant change in size (>/= 20% in 2 dimensions and minimal increase of 2 mm or 50% or greater increase in volume): No Change in features: No Change in ACR TI-RADS risk category: No 2. Location: Left superior medial. Size: 0.8 x 0.4 x 0.5 cm, volume 0.08 mL. Previously: New since the previous study. Nodule characteristics: Composition: Cystic(0). ACR TI-RADS total points: 0 ACR TI-RADS category: 1 3. Location: Left mid. Size: 1.0 x 0.7 x 0.9 cm, volume 0.34 mL. Previously: New since the previous study. Nodule characteristics: Composition: Solid (2). Echogenicity: Hypoechoic (2). Shape: Not taller than wide (0). Margins: Ill-defined (0). Echogenic Foci: None (0). ACR TI-RADS total points: 4 ACR TI-RADS category: 4 4. Location: Left mid. Size: 1.2 x 0.7 x 1.0 cm, volume 0.45 mL. Previously: New since the previous study. Nodule characteristics: Composition: Solid/almost completely solid (2). Echogenicity: Isoechoic (1). Shape: Not taller than wide (0). Margins: Ill-defined (0). Echogenic Foci: None (0). ACR TI-RADS total points: 3 ACR TI-RADS category: 3 NODES: No lymphadenopathy is seen in the tissue surrounding the thyroid gland. US/US thyroid IMPRESSION: Routine sonographic surveillance of left mid nodule. US Thyroid: 06/20/2021 Right Thyroid Lobe: 5.5 x 1.8 x 1.9 cm, volume 9.8 mL. Previously 5.3 x 2.3 x 1.7 cm, volume 10.8 mL. Parenchyma: The gland echotexture is heterogeneous. Thyroid vascularity is normal. Left Thyroid Lobe: 4.9 x 1.1 x 1.8 cm, volume 5.1 mL. Previously 4.1 x 1.5 x 1.7 cm, volume 5.5 mL. Parenchyma: The gland echotexture is homogeneous. Thyroid vascularity is normal. Isthmus: 0.3 cm in maximum AP dimension. Previously 0.5 cm. There are multiple nodules. Largest nodules are measured. Estimated total number of nodules greater than or equal to 1 cm: 3. Gifted Program Teacher nodules are described as follows: 1.? Location: Right mid. ?? ? Size: 1.9 x 0.96 x 1.6 cm, volume 1.6 mL. ?? ? Previously: 1.4 x 0.9 x 1.3 cm, volume 1.2 mL. ?? ? Nodule characteristics: ?? ? Composition: Mixed cystic and solid (1). ?? ? Echogenicity: Anechoic (0). ?? ? Shape: Not taller than wide (0). ?? ? Margins: Lobulated (2). ?? ? Echogenic Foci: None (0). ? ACR TI-RADS total points: 3 ?? ? ACR TI-RADS category: 3 ? Significant change in size (>/= 20% in 2 dimensions and minimal increase of 2 mm or 50% or greater increase in volume): ?? ? Change in features: ?? ? Change in ACR TI-RADS risk category: 2.? Location: Right mid. ?? ? Size: 1.1 x 0.8 x 1.3 cm, volume 0.6 mL. ?? ? Previously: 2.4 x 1.2 x 2.4 cm, volume 3.61 mL. ?? ? Nodule characteristics: ?? ? Composition: Solid (2). ?? ? Echogenicity: Hyperechoic (1). ?? ? Shape: Not taller than wide (0). ?? ? Margins: Smooth (0). ?? ? Echogenic Foci: None (0).? ACR TI-RADS total points: 3 ?? ? ACR TI-RADS category: 3 ? Significant change in size (>/= 20% in 2 dimensions and minimal increase of 2 mm or 50% or greater increase in volume): ?? ? Change in features: ?? ? Change in ACR TI-RADS risk category: 3.? Location: Right superior. ?? ? Size: 1.3 x 1.3 x 1.2 cm, volume 1.06 mL. ?? ? Previously: 1.7 x 1.4 x 1.4 cm, volume 1.7 mL. ?? ? Nodule characteristics: ?? ? Composition: Solid (2). ?? ? Echogenicity: Isoechoic (1). ?? ? Shape: Not taller than wide (0). ?? ? Margins: Ill-defined (0). ?? ? Echogenic Foci: None (0). ? ACR TI-RADS total points: 3 ?? ? ACR TI-RADS category: 3 ? Significant change in size (>/= 20% in 2 dimensions and minimal increase of 2 mm or 50% or greater increase in volume): ?? ? Change in features: ?? ? Change in ACR TI-RADS risk category: 4.? Location: Left mid. ?? ? Size: 0.4 x 0.3 x 0.4 cm, volume 0.03 mL. ?? ? Previously: 0.7 x 0.4 x 0.5 cm, volume 0.07 mL. ?? ? Nodule characteristics: ?? ? Composition: Cystic(0). ?? ? ACR TI-RADS total points: 0 ?? ? ACR TI-RADS category: 1 ? Significant change in size (>/= 20% in 2 dimensions and minimal increase of 2 mm or 50% or greater increase in volume): ?? ? Change in features: ?? ? Change in ACR TI-RADS risk category: 5.? Location: Left inferior. ?? ? Size: 0.4 x 0.3 x 0.4 cm, volume 0.04 mL. ?? ? Previously: 0.4 x 0.2 x 0.4 cm, volume 0.01 mL. ?? ? Nodule characteristics: ?? ? Composition: Mixed cystic and solid (1). ?? ? Echogenicity: Isoechoic (1). ?? ? Shape: Not taller than wide (0). ?? ? Margins: Ill-defined (0). ?? ? Echogenic Foci: Punctate echogenic foci (3).? ACR TI-RADS total points: 5 ?? ? ACR TI-RADS category: 4 ? Significant change in size (>/= 20% in 2 dimensions and minimal increase of 2 mm or 50% or greater increase in volume): ?? ? Change in features: ?? ? Change in ACR TI-RADS risk category: NODES: No lymphadenopathy is seen in the tissue surrounding the thyroid gland. There are small left cervical lymph nodes. These are normal in size and demonstrate normal ultrasound morphology and flow. 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 Non-toxic multinodular goiter Diabetes type 2, uncontrolled Surgical History Hx of biopsy AICD (automatic cardioverter/defibrillator) present Hx of appendectomy Hx of hysterectomy Family History Father Alcoholism Diabetes Mother Arthritis Hypertension Social History Household Members: None Household Members Other:: Lives by self Housing: Apartment Do you presently have visiting nurse or other home services: Yes Unable to assess alcohol history related to: Unknown Alcohol intake: current Alcohol intake frequency: does not drink Patient Tobacco Use Status: Never used Tobacco e-Cigarette/Vaping Use: Never Used Second Hand Smoke Exposure: No service: No Physical Exam Vital Signs: BMI result Body Mass Index 26.6 Assessment & Plan Assessment & Plan (1) Non-toxic multinodular goiter: Code(s): E04.2 - Nontoxic multinodular goiter Category: Medical Plan: 69 YO Female with a PMHx of a NTMNG status post right hemithyroidectomy 11/10/[address] 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 Most recent thyroid ultrasound from November 2024 shows stable size of the left-sided nodules. We will plan to repeat another ultrasound in 1 year. 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 While thyroid surgery is required to distinguish NIFTP from the encapsulated with invasive subtype, therapy beyond thyroid lobectomy is usually not required (ie, thyroid-stimulating hormone [TSH] suppression and radioactive iodine ablation is not required ? With respect to the follow?up intensity for patients subsequent to neoplasm with papillary like nuclear features (NIFTP) resection. NIFTP is understood as a premalignant lesion Usually we recommend that, until longer term experience with this new entity is gained, the patient should still be followed yearly with neck exam. One can also consider annual measurements of thyroglobulin (Tg) and occasional imaging by neck ultrasonography (US) howee guidelines are unclear about this as of yet. Plan: -ordered ultrasound of the thyroid to be done in 1 year prior to follow up -ordered TSH with a reflex free T4 to be done prior to follow up in 1 year -follow up in 1 year Plan See above Orders: Orders US thyroid 11/13/25 E04.2 - Nontoxic multinodular goiter Free T4 (Free Thyroxine) 1 Year E04.2 - Nontoxic multinodular goiter Thyroid Stimulating Hormone 1 Year E04.2 - Nontoxic multinodular goiter Patient Instructions: Do ultrasound of the thyroid in November 2025, someone will call you to schedule this Do thyroid blood work in 1 year before your next follow up with me Follow up in 1 year Hazte phoebe ecograf?a de tiroides en nena de 2025. Te llamar?n para programarla. Hazte un an?lisis de michele de tiroides un a?o antes de tu pr?xima drake de seguimiento conmigo. Seguimiento dentro de un a?o. Coding Level of Care Code Est Pt Level 3 (20635) Diagnoses Non-toxic multinodular goiter E04.2
[2024-12-19 13:03] VITALS: BP 94/58; PULSE 76; O2SAT 98; BMI 26.6
--- OUTSIDE RECORDS SUMMARY | 2024-12-19 13:03 | XMS_ITS | Encounter Summary ---
Author Organization [facility] Address [address] [place] [address] Phone Care Team Providers Care Mainframe Software Developer Name Role Phone Catherine Cuellar MD Primary Care Provider [phone] Reason for Visit * Reason Comments Med Refill Encounter Details Date Type Department Care Team (Late st Contact Info) Description 05/08/2022 Refill [facility] [address] [place] [address] Talib Larkin MD Social History [...] on filedocumented in this encounter Care Teams Mainframe Software Developer Relationship Specialty Start Date End Date Catherine Cuellar MD PCP - General 08/13/20 documented as of this encounter
--- OUTSIDE RECORDS SUMMARY | 2024-12-19 13:03 | XMS_ITS | Clinical Summary ---
Author Organization [address] [place] [address] Address [address] [place] [address] Phone Care Team Providers Care Donation Specialist Name Role Phone Cordelia Moraes Primary Care [...] HFrEF (heart failure with reduced ejection fraction) ([facility] V24, [facility] V28) 08/01/2024 Overview (08/01/2024): Dr. Jens Rosas, [facility] cardiology Dilated cardiomyopathy ([facility] V24, [facility] V28 ) 08/01/2024 Overview (08/01/2024): 05/2017 EF 40% Dr. Jens Rosas -[facility] cardiology. AICD Fibromyalgia 08/01/2024 GERD (gastroesophageal reflux disease) HTN (hypertension) 08/01/2024 Hypercholesteremia 08/01/2024 Chronic pain of both knees 05/03/2019 CKD stage 3 due to type 2 di abetes mellitus ([facility] V24, [facility] V28) 08/17/2018 Overview (08/01/2024): Cr 2.0 on 07/29/18 - outside labs by Endo. Referred by Josue to Dr Cornel uCtler ([facility]). Latest Cr 06/06/19 1.14, Hgb 10.3 Anemia 01/21/2018 Overview (08/01/2024): Chronic. Latest Hgb 10.3 (06/06/19) Chronic low back pain 01/21/2018 Constipation 01/21/2018 Depression 01/21/2018 Diabetic peripheral neuropathy ([facility] V24, [facility] V28) 01/21/2018 Eczema 01/21/2018 Gout 01/21/2018 Overview (08/01/2024): 2018 Left toe Herpes zoster 01/21/2018 Overview (08/01/2024): 02/2016 ICD (implantable cardioverter-defibrillator) in place 01/21/2018 Overview (08/01/2024): For primary prevention Insomnia 01/21/2018 Plantar fasciitis of left foot 01/21/2018 Type 2 diabetes mellitus wit h neurological manifestations ([facility] V24, [facility] V28) 01/21/2018 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 ([facility] V24, [facility] V28) 08/03/2007 Immunizations Name Administration Dates Next [...] PROCEDURE: HISTORICAL APPENDECTOMY OTHER SURGICAL HISTORY PROCEDURE: [place] BIOPSY THYROID PERCUTANEOUS CORE NEEDLE PACEMAKER IMPLANT PROCEDURE: HISTORICAL PACEMAKER; COMMENT: cardiomyopathy Medical History Medical History Date Comments HTN (hypertension) DX:HTN (hyper tension) Hypercholesteremia DX:Hyperchole steremia 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 ([facility] V24, [facility] V28) 2007 DX:Diabetes type 2 with atherosclerosis of arteries of extremities ([facility]) Fibromyalgia DX:Fibromyalgia Dilated cardiomyopathy ([facility] V24, [facility] V28) DX:Dilated cardiomyopathy (H CC); COMMENT: 05/2017 EF 40% CHF (congestive heart failur e) ([facility] V24, [facility] V28) DX:CHF (congestive heart cheryl lure) ([facility]) Gout 01/21/2018 DX:Gout; COMMENT : Left toe Depression 01/21/2018 DX:Depression Type 2 diabetes mellitus wit h neurological manifestations ([facility] V24, [facility] [place]28) 01/21/2018 DX:Type 2 diabetes mellitus with neurological manifestations ([facility]) Diabetic peripheral neuropat hy ([facility] V24, [facility] V28) 01/21/2018 DX:Diabetic peripheral neuro cruz ([facility]) Chronic low back pain 01/21/2018 DX:Chronic low [...] 1:15 PM EDT Consult Orthopedic Surgery - [place] [address] [place] [id number] [place], [place] [address] [address] Health Maintenance Due Date Last Done Comments [...] * Annual BMP Blood Test (09/30/2021) Pathologist [facility] Annual BMP Blood Test abstracted Historical Provider HEALTH MAINTENANCE Final Result * (ABNORMAL) Lipid panel (09/30/2021) [facility] LDL/HDL Ratio 3 0 - 4 Triglycerides 181(A) 0 - 150 mg/dL Cholesterol 148 0 - 200 mg/dL HDL 45 >=40 mg/dL LDL Cholesterol 68 0 - 100 mg/dL Blood Venous blood specimen / Unknown Historical Provider LAB BLOOD ORDERABLES Dagmar l Result * Colonoscopy (11/05/2020) [facility] Colonoscopy normal, abstracted Anatomical Region Laterality Modality Other Historical Provider HEALTH MAINTENANCE Final Result * Hemoglobin A1c (04/29/2019) [facility] Hemoglobin A1C 6.0 <=6.5 % Blood Venous [...] Subscriber Plan / Payer (Ef fective 2021-Present) Name:NATHAN MONTESINOS Relation to Subscriber:Self Name:Nathan Montesinos Payer ID:[id number] Group ID:[id number] Type:Not on file Address: [facility] [address] [place] [id number] MEDICA[place] - [place] Care Teams Donation Specialist Relationship Specialty Start Date End Date Cordelia Moraes PA [address] [place] [address] PCP - General 10/17/24
--- OUTSIDE RECORDS SUMMARY | 2024-12-19 13:03 | XMS_ITS | Clinical Summary ---
Author Organization [employer] Address [address] [place] [address] [address] [place] [address] Care Team Providers Care Pharmacognosy Teacher Name Role Phone Unavailable Primary Care Provider [...] of Phone Billing Address Personal/Family Self [address]
--- OUTSIDE RECORDS SUMMARY | 2024-12-19 13:03 | XMS_ITS | Clinical Summary ---
Author Organization [facility] Address [address] [place] [address] Care Team Providers Care Dishwasher Busser Name Role Phone Cordelia Moraes PA-C Primary Care Provider [phone] Source Comments PLEASE NOTE, if this patient [...] 6 (six) hours as needed 022 Active alcohol swabsIndications: Type 2 diabetes mellitus with stage 3a chronic kidney disease, with long-term current use of insulin ([facility]) Use to test blood glucose three times daily. 100 Each 11 024 Active silver sulfADIAZINE (SILVADENE) 1 % cream [facility]/pharmacy #[id number] [place], [place] [phone] 50 g Refills RemaininDays Supply: 30Sig: APPLY TOPICALLY TO NAIL BED DAILYSource: Surescripts (Fill History, Ambulatory)Auth orized by: CANDI KAYE 024 Active triamcinolone (KENALOG) 0.5 % cream APPLY TO AFFECTED AREA TWICE DAILY FOR 2 WEEKS. THEN ON AND OFF NEEDED FOR FLARES. 15 g 1 Active metoprolol succinate XL (TOPROL-XL) 100 mg 24 hr tabletIndications :Heart failure with reduced ejection fraction, NYHA class III ([facility]) Take 1 Tablet by mouth once daily (Prescribed by [facility]) Active spironolactone (ALDACTONE) 25 mg tabletIndications :Heart failure with reduced ejection fraction, NYHA class III ([facility]) Take 1 Tablet by mouth once daily (Prescribed by [facility]) Active blood-glucose meter,continuous (FREESTYLE CLIF 3 READER) miscIndications:T ype 2 diabetes mellitus with stage 3a chronic kidney disease, with long-term current use of insulin ([facility]) Use to test blood glucose continuously. (Freestyle Clif 3 reader) 1 Each Active blood-glucose sensor (FREESTYLE CLIF 3 PLUS SENSOR) deviIndications:T ype 2 diabetes mellitus with stage 3a chronic kidney disease, with long-term current use of insulin ([facility]) Place 1 sensor to back of upper arm every 15 days. Use to monitor blood sugar continuously (Freestyle Clif 3 Plus) 2 Each Active BD LISA 2ND GEN PEN NEEDLE 32 gauge x 5/32 ndleIndications:T ype 2 diabetes mellitus with stage 3b chronic kidney disease, with long-term current use of insulin ([facility]) 1 to 3 (one to three) times daily Use to inject insulin as per order 100 Each Active aspirin [address] tablet TOME MONA TABLETA TODOS LOS D 90 Tablet 2 Active lancets (FREESTYLE LANCETS) 28 gaugeIndications: Type 2 diabetes mellitus with stage 3a chronic kidney disease, with long-term current use of insulin ([facility]) Use to test blood glucose three times daily. (Freestyle Lancets) 100 Each 024 Active blood sugar diagnostic stripsIndications :Type 2 diabetes mellitus with stage 3a chronic kidney disease, with long-term current use of insulin ([facility]) Use to test blood glucose three times daily. (Freestyle Lite) 100 Each 024 Active cholecalciferol (VITAMIN D-3) 50 mcg (2,000 unit) capsule TOME 1 CAPSULA POR VIA ORAL TODOS [place] 90 Capsule 1 025 Active apixaban (ELIQUIS) 5 mg tabIndications:Di lated cardiomyopathy (HCC-CMS),Implant able cardioverter-defi brillator (ICD) in situ Take 1 Tablet by mouth 2 (two) times Daily 180 Tablet 1 025 Active omeprazole (PRILOSEC) [address] capsule TOME MONA CAPSULA TODOS [place] EN LA MANANA ANTES DEL DESAYUNO 90 Capsule 1 025 Active gabapentin (NEURONTIN) 600 mg tabletIndications :Fibromyalgia TOME MONA TABLETA ALISTAIR VECES AL ANANTH 270 Tablet 025 Active DAILY-MOSES, WITH FOLIC ACID, 400 mcg tabIndications:Ch ronic kidney disease, stage 3b ([facility]) TOME 1 TABLETA POR VIA ORAL TODOS [place] 90 Tablet 1 025 Active furosemide (LASIX) 40 mg tabletIndications :Heart failure with reduced ejection fraction, NYHA class III ([facility]) TOME 1 TABLETA POR VIA ORAL DOS VECES AL ANANTH 180 Tablet 1 025 Active empagliflozin (JARDIANCE) 25 mg tabIndications:Ty pe 2 diabetes mellitus with stage 3b chronic kidney disease, with long-term current use of insulin ([facility]),Stage 3 chronic kidney disease due to type 2 diabetes mellitus ([facility]),Heart failure with reduced ejection fraction, NYHA class III ([facility]) Take 1 Tablet by mouth every morning (Take with plenty of water throughout the day) stop 10 mg 30 Tablet 11 025 Active loratadine (CLARITIN) 10 mg tablet TOME 1 TABLETA POR VIA ORAL TODOS [place] CUANDO SEA NECESARIO FOR ALLERGIES 90 Tablet 025 Active fluticasone (FLONASE) 50 mcg/actuation nasal spray PLACE 1 SPRAY IN BOTH NOSTRILS ONCE DAILY NEEDED FOR RHINITIS OR ALLERGIES!! 32 mL 025 Active colchicine 0.6 mg tabletIndications :Gout of right foot, unspecified cause, unspecified chronicity 2 tablets first day and then one tablet daily after. 90 Tablet 1 025 Active atorvastatin (LIPITOR) 40 mg tablet TOME 1 TABLETA POR VIA ORAL TODOS [place] 90 Tablet 1 025 Active zolpidem (AMBIEN) 5 mg tabletIndications :Insomnia, unspecified type Take 1 Tablet by mouth nightly at bedtime NEEDED FOR SLEEP!! 30 Tablet 025 Active tiZANidine (ZANAFLEX) 4 mg tabletIndications :Fibromyalgia Take 1 Tablet by mouth every 8 (eight) hours as needed for muscle spasms 20 Tablet 025 Active ENTRESTO 24-26 mg tabIndications:He art failure with reduced ejection fraction, NYHA class III ([facility]) TOME 1 TABLETA POR VIA ORAL DOS VECES AL ANANTH 60 Tablet 2 025 Active atorvastatin (LIPITOR) 40 mg tablet Take 1 Tablet by mouth nightly at bedtime (Prescribed by [facility]) 024 2024 Discontinued TRADJENTA 5 mg tabIndications:Ty pe 2 diabetes mellitus with stage 3a chronic kidney disease, with long-term current use of insulin ([facility]) Take 1 Tablet by mouth every morning For diabetes 90 Tablet 1 024 2024 Discontinued(T herapy completed/Not needed) ENTRESTO 24-26 mg tabIndications:He art failure with reduced ejection fraction, NYHA class III ([facility]) Take 1 Tablet by mouth 2 (two) times daily (Prescribed by [facility]) 60 Tablet 2 025 2024 Discontinued methocarbamoL (ROBAXIN) 750 mg tabletIndications :Fibromyalgia TAKE 1 TABLET BY MOUTH 2 TIMES DAILY NEEDED FOR OTHER (SPASM). 90 Tablet 025 2024 Discontinued zolpidem (AMBIEN) 5 mg tabletIndications :Insomnia, unspecified type Take 1 Tablet by mouth nightly at bedtime NEEDED FOR SLEEP!! 30 Tablet 025 2024 Discontinued(R eorder (E-Cancel Not Sent)) methocarbamoL (ROBAXIN) 750 mg tabletIndications :Fibromyalgia TAKE 1 TABLET BY MOUTH 2 TIMES DAILY NEEDED FOR OTHER (SPASM). 60 Tablet 1 025 2024 Discontinued tiZANidine (ZANAFLEX) 4 mg tabletIndications :Fibromyalgia Take 1 Tablet by mouth every 8 (eight) hours as needed for muscle spasms 20 Tablet 025 2024 Discontinued(R eorder (E-Cancel Not Sent)) Active Problems Problem Noted Date Diagnosed Date Carpal tunnel syndrome of right wrist 09/30/2024 Degenerative tear of medial meniscus of right kn ee 10/11/2023 History of appendectomy 12/30/2022 12/31/19 Hx of cholecystectomy 12/30/2022 12/30/2022 Cardiac pacemaker 12/30/2022 12/30/2022 Overview (06/21/2024): 06/14/24 at [facility] Cardio Plan ~Labs today ~Refer [...] messaged for pt's arm MRI 05/12/24 at [facility] Cardio Plan ~24-Holter monitor to assess PVC burden 04/08/24 at [facility] Cardio Plan ~Reduce Lasix to [...] Device to assess PVC burden 03/04/24 at [facility] Cardio Plan: - increase entresto to 97-103mg BID - pt will monitor wt at home and repeat labs in a week, if wt has not improved would double lasix dose for 3-4 days - f/u in 1 months - would repeat ekg and if QRS wide with LBBB pattern ask EP if we need to upgrade to DENTAL FINANCIAL COORDINATOR given low EF and recent admission with decrease in GDMT 08/25/23 at [facility] Cardio Cardiology Shared Clinical Summary [...] reduced e jection fraction, NYHA class III ([facility]) 12/30/2022 12/30/2022 Overview (11/24/2024): 10/04/24 at [facility] No medication changes Refer to EP for consult on PVC ablation Encouraged to try to hydrate with at least 64 oz fluid daily Repeat labs including follow up for iron infusion 08/01/24 at [facility] Cardiology NYHA class III stage [...] exercise test for risk stratification 06/14/24 at [facility] Cardio [facility] Labs today Refer back to EP [...] messaged for pt's arm MRI 05/12/24 at [facility] Cardio [facility] 24-Holter monitor to assess PVC burden 04/08/24 at [facility] Cardio [facility] Reduce Lasix to 20 mg as needed weight gain greater than 3 pounds / 1-2 days, increased leg swelling, increased shortness of breath Stop carvedilol 12.5 mg twice daily and start metoprolol XL 100 mg daily Pt encouraged to hydrate in the range of 8 glasses fluid daily Repeat Sleep study in-lab Message to Device to assess PVC burden 03/04/24 at [facility] Cardio Plan: increase entresto to 97-103mg BID Pt will monitor wt at home and repeat labs in a week, if wt has not improved would double lasix dose for 3-4 days F/u in 1 months - would repeat ekg and if QRS wide with LBBB pattern ask EP if we need to upgrade to DENTAL FINANCIAL COORDINATOR given low EF and recent admission with decrease in GDMT 08/25/23 at [facility] Cardio Cardiology Shared Clinical Summary [...] Migraine 12/30/2022 12/30/2022 Mild vaginal dysplasia 12/30/2022 Polyp of colon 12/30/2022 12/30/2022 Overview (12/30/2022): 02/14 History of lobectomy of thyroid 12/30/2022 Overview (12/30/2022): Post op right lobectomy DOS 11/10/22 at [facility]. Anemia of chronic renal failure 11/30/2020 12/30/2022 Dilated cardiomyopathy (HCC-CMS) 11/30/2020 12/30/2022 Overview (11/24/2024): 10/04/24 at [facility] Cardiology No medication changes Refer to EP for consult on PVC ablation Encouraged to try to hydrate with at least 64 oz fluid daily Repeat labs including follow up for iron infusion 08/01/24 at [facility] Cardiology NYHA class III stage [...] exercise test for risk stratification 06/14/24 at [facility] Cardio Plan Labs today Refer back to EP for [...] messaged for pt's arm MRI 05/12/24 at [facility] Cardio [facility] 24-Holter monitor to assess PVC burden 04/08/24 at [facility] Cardio [facility] Reduce Lasix to 20 mg as needed weight gain greater than 3 pounds / 1-2 days, increased leg swelling, increased shortness of breath Stop carvedilol 12.5 mg twice daily and start metoprolol XL 100 mg daily Pt encouraged to hydrate in the range of 8 glasses fluid daily Repeat Sleep study in-lab Message to Device to assess PVC burden 03/04/24 at [facility] Cardio Plan: increase entresto to 97-103mg BID Pt will monitor wt at home and repeat labs in a week, if wt has not improved would double lasix dose for 3-4 days F/u in 1 months - would repeat ekg and if QRS wide with LBBB pattern ask EP if we need to upgrade to DENTAL FINANCIAL COORDINATOR given low EF and recent admission with decrease in GDMT 08/25/23 at [facility] Cardio Cardiology Shared Clinical Summary [...] se due to type 2 diabetes mellitus ([facility]) 08/17/2018 12/30/2022 Overview (09/28/2024): 08/[facility]/24 [facility] [place] - renal function back to baseline. Serum creatinine 1.28. continue current dose of diuretics. DM - continue SGLT-2 inhibitor, no changes made, maintain A1c <7%, avoid NSAIDs Gout - on allopurinol - does not want to take prednisone, encouraged to follow- up with rheumatology. 04/25/24 at [facility] [place]. Omayra Chapin Echocardiogram showed severely [...] Referred by Endo to Dr Cornel Cutler ([facility]). Latest Cr 06/06/19 1.14, Hgb 10.3 Constipation 01/21/2018 12/30/2022 Eczema 01/21/2018 12/30/2022 Gout 01/21/2018 12/30/2022 Overview (12/30/2022): 2018 Left toe 2018 Left toe Implantable cardioverter-defibrillator (ICD) in situ 01/21/2018 12/30/2022 Overview (10/30/2023): [facility] Cardio - 08/25/23 Cardiology Shared [...] disease, with long-term current use of insulin ([facility]) 08/03/2007 12/30/2022 Overview (11/24/2024): DM dx: ~[id number] per patient reports Glucometer: Freestyle Clif 3 Plus Current Diabetes RX: Lantus Solostar - inject 8 units daily at bedtime Jardiance 25 mg daily every morning (CKD/HF) MARCO-I/ARB: Entresto 24/26 mg twice daily (prescribed by [facility]) Statin: Atorvastatin 40 mg daily at bedtime (prescribed by [facility]) Pneumococcal vaccine: PPSV23 (02/16/09) Diabetes foot exam: Scheduled 12/20/24 at [facility] 02/26/23, podiatry referral sent on 10/09/23 by PCP Diabetes retinal exam: 02/09/24 at [facility] No retinopathy Meibomian Gland Dysfunction OU. Hot compresses for 10 minutes 4 times daily. Monitor. Pterygium OS. Mildly inflammed pterygium, consider Lotemax if irritation worsens. Resolved Problems Problem Noted Date Diagnosed Date Resolved Date Obesity 12/30/2022 12/30/2022 09/28/2024 Chronic systolic heart failure (HCC-CMS) 11/30/2020 12/30/2022 10/28/2023 Overview (12/30/2022): Dr. Jens Rosas, [facility] cardiology Dr. Jens Rosas, [facility] cardiology Diabetic nephropathy associa tanisha with type 2 diabetes mellitus (HCC-CMS) 11/30/2020 12/30/2022 10/28/2023 Encounters Date Type Department Care Team Description 11/24/2024 2:00 PM EDT Telemedicine Visit [address] [phone] Reza Britt PharmD Type 2 diabetes mellitus with stage 3b chronic kidney disease, with long-term current use of insulin (HCC-CMS) (Primary Dx); Heart failure with reduced ejection fraction, NYHA class III (HCC-CMS); Stage 3 chronic kidney disease due to type 2 diabetes mellitus (HCC-CMS); Cardiac pacemaker; Essential hypertension; Dilated cardiomyopathy (HCC-CMS); Hyperlipidemia LDL goal <100 11/09/2024 9:40 AM EDT Office Visit [address] [phone] Hallie Dupree NP Lopez, Iris Gout of right foot, unspecified cause, unspecified chronicity (Primary Dx); Insomnia, unspecified type 09/30/2024 1:40 PM EST Office Visit [address] [phone] Cordelia Moraes PA-C Annual physical exam (Primary Dx); Immunization due; Type 2 diabetes mellitus with stage 3b chronic kidney disease, with long-term current use of insulin (HCC-CMS); Stage 3 chronic kidney disease due to type 2 diabetes mellitus (HCC-CMS); Essential hypertension; Heart failure with reduced ejection fraction, NYHA class III ([facility]); Carpal tunnel syndrome of right wrist 09/28/2024 1:20 PM EST Office Visit [address] [phone] Reza Britt, PharmD Type 2 diabetes mellitus with stage 3b chronic kidney disease, with long-term current use of insulin ([facility]) (Primary Dx); Stage 3 chronic kidney disease due to type 2 diabetes mellitus ([facility]); Essential hypertension; Heart failure with reduced ejection fraction, NYHA class III ([facility]); Cardiac pacemaker; Hyperlipidemia LDL goal <100; Dilated cardiomyopathy ([facility]) from Last 3 Months Immunizations Immunization Administration Dates Next Due Flu, Preservative Free 10/17/2019 INFLUENZA, SEASONAL, INJECTABLE 05/28/20 17,06/07/2015,04/21/2013,06/07 PNEUMOCOCCAL POLYSACCHARIDE PPV23 (Pneumovax 23) 02/16/2009 TDAP 02/16/2009 Td(adult),2 Lf tetanus toxoid,preservative [...] Care Team (Late st Contact Info) Description 01/27/2025 2:40 PM EDT Office Visit [facility] [address] [place] [phone] Reza Britt, PharmD [address] [place] [address] Health Maintenance Due Date Last Done Comments Dental Examination [address] CT Colonography 2001 FIT/gFOBT 2001 Fecal DNA 2001 Flexible Sigmoidoscopy 2001 Imm-Pneumococcal 65+ (2 of 2 - PCV) 02/16/2010 02/16/2009 Bone Density Screening 2021 Imm-Zoster, Recombinant (2 of 2) 04/23/2023 02/26/2023 Diabetes Foot Exam 02/27/2024 02/26/2023 Urine Albumin Creatinine Ratio Screening 02/27/2024 02/26/2023 [id number] ( - season) 2024 10/29/2020, 09/30/2020 Lipid Screening 10/27/2024 10/28/2023, 3 , 09/30/2021 Diabetes HbA1c 12/19/2024 06/21/2024, 10/02, 12/30/2022, Additional [...] long-term current use of insulin ([facility]) COMPREHENSIVE METABOLIC PANEL Routine 06/21/2024 2:31 PM EST Type 2 diabetes mellitus with stage 3b chronic kidney disease, with long-term current use of insulin ([facility]) HGA1C W/EAG Routine 06/21/2024 2:31 PM EST Type 2 diabetes mellitus with stage 3b chronic kidney disease, with long-term current use of insulin ([facility]) REFERRAL FOR MAMMOGRAM Routine 4 3:00 AM EDT Screening mammogram, encounter for REFERRAL TO DIABETIC RETINAL EXAM Routine 02/09/2024 3:00 AM EDT Type 2 diabetes mellitus with stage 3a chronic kidney disease, with long-term current use of insulin ([facility]) LIPIDS W RFLX TO DIRECT LDL Routine 10/28/2023 10:18 AM EDT Preoperative clearance Type 2 diabetes mellitus with stage 3b chronic kidney disease, with long-term current use of insulin ([facility]) MICROALBUMIN/CREATININ E RATIO, URINE, RANDOM Routine 02/26/2023 2:03 PM EDT Type 2 diabetes mellitus with stage 3b chronic kidney disease, with long-term current use of insulin ([facility]) HEPATITIS C AB W/RFLX HCV RNA, QT, RT PCR Routine 12/30/2022 10:40 AM EDT Encounter to establish care from Last 3 Months or Most Recently Relevant to Health Maintenance Results * (ABNORMAL) GLUCOSE, BLOOD BY GLUCOSE MONITORING DEVICE (CLIA WAIVED)POCT (09/28/2024 1:32 PM EST) GLUCOSE 155(A) 70 - 100 mg/dL [facility] POCT Capillary Blood Blood / Unknown 5 1:32 PM EST Reza DonisD LAB - BLOOD DRAW Final Re sult [facility] OFFICE POCT * (ABNORMAL) HGA1C W/EAG (06/21/2024 2:31 PM EST) HEMOGLOBIN A1C 6.3(H) <5.7 % of total Hgb [facility] Comment: For someone without known diabetes, a [...] diabetes for children. EAG (MG/DL) 134 mg/dL [employer] [facility] EAG (MMOL/L) 7.4 mmol/L [facility] Blood Blood / Unknown 06/21/2024 2 :31 PM EST 06/21/2024 2:32 PM EST Narrative [facility] - 06/22/2024 12:48 PM EST FASTING:NO us Cordelia Moraes PA-C LAB - BLOOD DRAW Final Resul t [facility] [address] [id number], [employer] [address] [address] * (ABNORMAL) COMPREHENSIVE METABOLIC PANEL (06/21/2024 2:31 PM EST) GLUCOSE 101 65 - 139 mg/dL [employer] [facility] Comment: ?Non-fasting reference interval UREA NITROGEN (BUN) 24 7 - 25 mg/dL [facility] CREATININE (blood) 1.66(H) 0.50 - 1.05 mg/dL [facility] EGFR 33(L) > OR = 60 mL/min/1. 73m2 [facility] BUN/CREATININE RATIO 14 6 - 22 (calc) [facility] SODIUM 134(L) 135 - 146 mmol/L [employer] [facility] POTASSIUM 4.4 3.5 - 5.3 mmol/L [facility] CHLORIDE 94(L) 98 - 110 mmol/L [facility] CARBON DIOXIDE 28 20 - 32 mmol/L [facility] CALCIUM 9.6 8.6 - 10.4 mg/dL [employer] [facility] PROTEIN, TOTAL 7.6 6.1 - 8.1 g/dL [facility] ALBUMIN 4.3 3.6 - 5.1 g/dL [facility] GLOBULIN 3.3 1.9 - 3.7 g/dL (calc) [facility] ALBUMIN/GLOBULI N RATIO 1.3 1.0 - 2.5 (calc) [facility] BILIRUBIN, TOTAL 0.4 0.2 - 1.2 mg/dL [facility] ALKALINE PHOSPHATASE 79 37 - 153 U/L [facility] AST 14 10 - 35 U/L [facility] ALT 10 6 - 29 U/L [facility] Blood Blood / Unknown 06/21/2024 2 :31 PM EST 06/21/2024 2:32 PM EST Narrative [facility] - 06/22/2024 12:48 PM EST FASTING:NO Cordelia Moraes PA-C LAB - BLOOD DRAW Edited Resu lt - Final [facility] [address] [address], [facility] [address] [address] * REFERRAL FOR MAMMOGRAM SCREENING (04/27/2024 3:00 AM EDT) 04/27/2024 3:00 AM EDT Cordelia Moraes PA-C IMG RFL MAMMO Edited Resul t - Final * REFERRAL FOR DIABETIC RETINAL EXAM (02/09/2024 3:00 AM EDT) 02/09/2024 3:00 AM EDT Reza Britt PharmD REFERRAL Edited Re sult - Final * (ABNORMAL) LIPIDS W RFLX TO DIRECT LDL (10/28/2023 10:18 AM EDT) CHOLESTEROL, TOTAL 131 <200 mg/dL [facility] HDL CHOLESTEROL 35(L) > OR = 50 mg/dL [facility] TRIGLYCERIDES 158(H) <150 mg/dL [facility] LDL-CHOLESTEROL 72 99 mg/dL (calc) [facility] Comment: Reference range: <100 Desirable range <100 mg/dL for primary prevention; ?? <70 mg/dL for patients with CHD or diabetic patients with > or = 2 CHD risk factors. LDL-C is now calculated using the Viky calculation, which is a validated novel method providing better accuracy than the Friedewald equation in the estimation of LDL-C. Len GARCIA et al. JENNIFER. 2013;310(19): 9614-0290 (http://education.TapInko/faq/GMZ042) CHOL/HDLC RATIO 3.7 <5.0 (calc) [facility] NON-HDL CHOLESTEROL 96 <130 mg/dL (calc) [facility] Comment: For patients with diabetes plus 1 major ASCVD risk factor, treating to a non-HDL-C goal of <100 mg/dL (LDL-C of <70 mg/dL) is considered a therapeutic option. Blood Blood / Unknown 10/28/2023 1 0:18 AM EDT 10/28/2023 10:18 AM EDT Narrative [facility] - 10/29/2023 9:14 AM EDT FASTING:YES Cordelia Moraes PA-C LAB - BLOOD DRAW Final Resul t [facility] [address] [address], [facility] [address] [place] [address] * MICROALBUMIN/CREATININE RATIO, URINE, RANDOM (02/26/2023 2:03 PM EDT) CREATININE, RANDOM URINE 37 20 - 275 mg/dL [employer] [facility] MICROALBUMIN <0.2 mg/dL [facility] Comment: Reference Range Not established MICROALBUMIN/CREA TININE RATIO, RANDOM URINE NOTE <30 [facility] Comment: NOTE: The urine albumin value is [...] EDT 02/26/2023 2:04 PM EDT Richa Atkins [facility] URINE AMBULATORY Final Resul t Performing Organization Address [facility] Co de Phone Number [facility] [address] [place] [id number], [facility] [address] [place] [address] * Hep C Antibody with Reflex HCV RNA (12/30/2022 10:40 AM EDT) HEPATITIS C ANTIBODY NON-REACT OBI NON-REACT OBI [facility] SIGNAL TO CUT-OFF 0.11 <1.00 [facility] Comment: HCV antibody was non-reactive. There is no laboratory evidence of HCV infection. In most cases, no further action is required. However, if recent HCV exposure is suspected, a test for HCV RNA (test code 01640) is suggested. For additional information please refer to http://education.BoatsGo/faq/VPI19m0 (This link is being provided for informational/ educational purposes only.) Blood Blood / Unknown 12/30/2022 1 0:40 AM EDT 12/30/2022 10:40 AM EDT Narrative CaptureProof - 12/31/2022 7:57 AM EDT FASTING:YES Cordelia [facility] - BLOOD DRAW Edited Resu lt - Final Performing Organization Address City/[facility]/ZIP Co de Phone Number [place] [address] [address], [facility] [address] [address] from Last 3 Months or Most Recently Relevant to Health Maintenance Insurance [facility] [employer] Member Subscriber Plan / Payer (Ef fective 2021-Present) Name:Lida Peoples Relation to Subscriber:Self Name:Lida Peoples Payer ID:[id number] Group ID:Not on file Type:Indemnity Address: [place] [address] [address] [address] Care Teams Dishwasher Busser Relationship Specialty Start Date End Date Cordelia Moraes PA-C [address] [place] [id number] PCP - General Internal Medicine 09/05/22
--- OUTSIDE RECORDS SUMMARY | 2024-12-19 13:03 | XMS_ITS | Encounter Summary ---
Author Organization [facility] Address [address] [place] [address] Care Team Providers Care Instrument And Electrical Technician Name Role Phone Unavailable Primary Care Provider Unavailabl e Encounter Details Date Type Department Care Team (Latest Contact Info) Description 12/01/2018 Abstract C CONVERSIONS Dental, Provider, DDS Social History Tobacco [...]
--- OUTSIDE RECORDS SUMMARY | 2024-12-19 13:03 | XMS_ITS | Clinical Summary ---
Author Organization [facility] Address [address] [place] [address] [place] [address] Phone Care Team Providers Care Windows Systems Engineer Name Role Phone Catherine Cuellar MD Primary Care Provider [phone] Allergies Active Allergy Reactions Criticality Noted Date [...] failure 11/30/2020 Overview (11/30/2020): Dr. Jens Rosas, [facility] cardiology Hypertensive disorder 11/30/2020 Hypercholesterolemia 11/30/2020 Gastroesophageal reflux disease 11/30/2020 Fibromyalgia 11/30/2020 Ectopic kidney 11/30/2020 Dilated cardiomyopathy 11/30/2020 Overview (11/30/2020): 05/2017 EF 40% Dr. Jens Rosas -[facility] cardiology. AICD Proteinuria 11/30/2020 Renal disorder due to type 2 diabetes mellitus 0 11/30/2020 Pain of knee region 05/03/2019 Chronic kidney disease stage 3 due to type 2 diabetes mellitus 08/17/2018 Overview (11/30/2020): Cr 2.0 on 07/29/18 - outside labs by Endo. Referred by Josue to Dr Cornel Cutler ([facility]). Latest Cr 06/06/19 1.14, Hgb [...] patient's age to complete this topic Insurance [facility] ([id number]) [facility] ([id number]) Care Teams Windows Systems Engineer Relationship Specialty Start Date End Date Catherine Cuellar MD PCP - General 08/13/20
== END 2024-12-19 13:16 | disposition home or self-care (01) ==
LOC: HO.ENCR 12:51
PROVIDERS: Visit Provider Student in an Organized Health Care Education/Training Program
DX: E04.2 Nontoxic multinodular goiter (principal)
CPT/HCPCS: 99213

== ENCOUNTER → 2024-12-19 12:51 | Outpatient (BNVA) | payer OTHER, SELFPAY | PROVIDERS: Visit Provider Student in an Organized Health Care Education/Training Program | DX: E04.2 Nontoxic multinodular goiter (principal) | CPT/HCPCS: 99212 ==

== ENCOUNTER 2025-01-06 14:10 | Outpatient (REF) | payer OTHER, SELFPAY ==
[2025-01-06 15:30] LABS: MANUAL DIFF FLAG NO
[2025-01-06 15:41] LABS: Basophils Absolute Auto 0.1 X10*3/uL (0.0-0.2); Basophils Percent Auto 0.6 % (0-2); Eosinophils Absolute Auto 0.1 X10*3/uL (0.0-0.4); Hematocrit 41.5 % (37.0-47.0); Hemoglobin 12.7 g/dl (12.0-16.0); Imm Gran Abs Auto 0.05 X10*3/uL (0.00-0.03); Imm Gran Pct Auto 0.3 % (0.0-0.4); Lymphocytes Absolute Auto 3.3 X10*3/uL (1.2-4.9); Lymphocytes Percent Auto 22.9 % (20-40); Mean Corpuscular HGB Conc 30.6 g/dl (31.0-35.0); Mean Corpuscular Hemoglobin 25.6 pg (27.0-33.0); Mean Corpuscular Volume 83.5 fL (80.0-98.0); Mean Platelet Volume 10.6 fL (9.4-12.3); Monocytes Absolute Auto 1.3 X10*3/uL (0.1-1.2); Monocytes Percent Auto 8.8 % (2-11); Neutrophils Absolute Auto 9.6 x10*3/uL (2.0-8.3); Neutrophils Percent Auto 66.4 % (45-73); Platelet Count 265 X10*3/uL (160-400); Red Blood Count 4.97 X10*6/uL (4.20-5.50); Red Cell Distribution Width 12.9 % (11.0-16.0); White Blood Count 14.5 X10*3/uL (4.8-10.8)
[2025-01-06 18:10] LABS: Alanine Aminotransferase 13 U/L (0-31); Albumin Level 4.3 g/dL (3.5-5.0); Anion Gap 15 (12-20); Aspartate Amino Transferase 23 U/L (5-31); Bilirubin Total 0.3 mg/dL (0.0-1.0); Blood Urea Nitrogen 27 mg/dL (9-16); Calcium 9.5 mg/dL (8.4-10.2); Carbon Dioxide 29 mmol/L (22-29); Chloride 100 mmol/L (96-108); Estimated Glomerular Filt Rate 34; Glucose Random 111 mg/dL (60-115); Iron 47 mcg/dL (30-160); Percent Iron Saturation 25 % (15-50); Potassium 4.3 mmol/L (3.3-5.1); Sodium 140 mmol/L (135-145); Total Iron Binding Capacity 191 mcg/dL (228-428); Total Protein 7.4 g/dL (6.5-8.0); Unsaturated Iron Binding 144 ug/dL
[2025-01-06 18:27] LABS: Ferritin 781 ng/mL (10-250)
[2025-01-06 18:50] LABS: Alkaline Phosphatase 92 U/L (39-117)
== END 2025-01-06 14:11 | disposition home or self-care (01) ==
LOC: HO.LAB 14:10
PROVIDERS: PCP Physician Assistant; Visit Provider Internal Medicine Hypertension Specialist
DX: N18.30 Chronic kidney disease, stage 3 unspecified (principal); I11.0 Hypertensive heart disease with heart failure; I50.9 Heart failure, unspecified; E11.22 Type 2 diabetes mellitus with diabetic chronic kidney disease; E11.649 Type 2 diabetes mellitus with hypoglycemia without coma; E11.40 Type 2 diabetes mellitus with diabetic neuropathy, unspecified
CPT/HCPCS: 36415; 80053; 82728; 83540; 85025; 99212

== ENCOUNTER 2025-01-06 14:10 | Outpatient (AMB) | payer OTHER, SELFPAY ==
--- OUTSIDE RECORDS SUMMARY | 2025-01-06 14:13 | XMS_ITS | Clinical Summary ---
Author Organization [facility] Address [address] [place] [address] Care Team Providers Care Meringuer Name Role Phone Cordelia Moraes PA-C Primary Care Provider [phone] Source Comments PLEASE NOTE, if this patient [...] disease, with long-term current use of insulin ([facility]) Use to test blood glucose three times daily. 100 Each 11 024 Active silver sulfADIAZINE (SILVADENE) 1 % cream [facility]/pharmacy #[id number] [place], [place] [phone] 50 g Refills RemaininDays Supply: 30Sig: APPLY [...] ejection fraction, NYHA class III ([facility]) Take 1 Tablet by mouth once daily (Prescribed by [facility]) Active spironolactone (ALDACTONE) 25 mg tabletIndications :Heart failure with reduced ejection fraction, NYHA class III ([facility]) Take 1 Tablet by mouth once daily (Prescribed by [facility]) Active blood-glucose meter,continuous (FREESTYLE CLIF 3 READER) miscIndications:T ype 2 diabetes mellitus with stage 3a chronic kidney disease, with long-term current use of insulin ([facility]) Use to test blood glucose continuously. (Freestyle Clif 3 reader) 1 Each Active blood-glucose sensor (FREESTYLE CLIF 3 PLUS SENSOR) deviIndications:T ype 2 diabetes mellitus with stage 3a chronic kidney disease, with long-term current use of insulin ([facility]) Place 1 sensor to back of upper arm every 15 days. Use to monitor blood sugar continuously (Freestyle Clif 3 Plus) 2 Each Active BD LISA 2ND GEN PEN NEEDLE 32 gauge x 5/32 ndleIndications:T ype 2 diabetes mellitus with stage 3b chronic kidney disease, with long-term current use of insulin ([facility]) 1 to 3 (one to three) times daily Use to inject insulin as per order 100 Each Active aspirin [address] tablet TOME MONA TABLETA TODOS LOS D 90 Tablet 2 Active lancets (FREESTYLE LANCETS) 28 gaugeIndications: Type 2 diabetes mellitus with stage 3a chronic kidney disease, with long-term current use of insulin ([facility]) Use to test blood glucose three times daily. (Freestyle Lancets) 100 Each 024 Active blood sugar diagnostic stripsIndications :Type 2 diabetes mellitus with stage 3a chronic kidney disease, with long-term current use of insulin ([facility]) Use to test blood glucose three times [...] DEL DESAYUNO 90 Capsule 1 025 Active DAILY-MOSES, WITH FOLIC ACID, 400 mcg tabIndications:Ch ronic kidney disease, stage 3b ([facility]) TOME 1 TABLETA POR VIA ORAL TODOS [place] 90 Tablet 1 025 Active furosemide (LASIX) 40 mg tabletIndications :Heart failure with reduced ejection fraction, NYHA class III ([facility]) TOME 1 TABLETA POR VIA ORAL DOS VECES AL ANANTH 180 Tablet 1 025 Active empagliflozin (JARDIANCE) 25 mg tabIndications:Ty pe 2 diabetes mellitus with stage 3b chronic kidney disease, with long-term current use of insulin ([facility]),Stage 3 chronic kidney disease due to type 2 diabetes mellitus ([facility]),Heart failure with reduced ejection fraction, NYHA class III ([facility]) Take 1 Tablet by mouth every morning (Take with plenty of water throughout the day) stop 10 mg 30 Tablet 025 Active fluticasone (FLONASE) 50 [...] ejection fraction, NYHA class III ([facility]) TOME 1 TABLETA POR VIA ORAL DOS VECES AL ANANTH 60 Tablet 2 025 Active gabapentin (NEURONTIN) 600 mg tabletIndications :Fibromyalgia TOME MONA TABLETA ALISTAIR VECES AL ANANTH. 270 Tablet 025 Active loratadine (CLARITIN) 10 mg tablet TOME 1 TABLETA POR VIA ORAL TODOS [place] CUANDO SEA NECESARIO FOR ALLERGIES 90 Tablet 025 Active ENTRESTO 24-26 mg tabIndications:He art failure with reduced ejection fraction, NYHA class III ([facility]) Take 1 Tablet by mouth 2 (two) times daily (Prescribed by [facility]) 60 Tablet 2 025 2024 Discontinued gabapentin (NEURONTIN) 600 mg tabletIndications :Fibromyalgia TOME MONA TABLETA ALISTAIR VECES AL ANANTH 270 Tablet 025 2024 Discontinued(R eorder (E-Cancel Not Sent)) loratadine (CLARITIN) 10 mg tablet TOME 1 TABLETA POR VIA ORAL TODOS [place] CUANDO SEA NECESARIO FOR ALLERGIES 90 Tablet 025 2024 Discontinued methocarbamoL (ROBAXIN) 750 mg [...] pacemaker 12/30/2022 12/30/2022 Overview (06/21/2024): 06/14/24 at [facility] Plan ~Labs today ~Refer back [...] messaged for pt's arm MRI 05/12/24 at [facility] Plan ~24-Holter monitor to assess PVC burden 04/08/24 at [facility] Plan ~Reduce Lasix to 20 [...] Device to assess PVC burden 03/04/24 at [facility] Plan: - increase entresto to 97-103mg BID - pt will monitor wt at home and repeat labs in a week, if wt has not improved would double lasix dose for 3-4 days - f/u in 1 months - would repeat ekg and if QRS wide with LBBB pattern ask EP if we need to upgrade to [employer] given low EF and recent admission with decrease in GDMT 08/25/23 at [facility] Cardiology Shared Clinical Summary 1. [...] reduced e jection fraction, NYHA class III ([facility]) 12/30/2022 12/30/2022 Overview (11/24/2024): 10/04/24 at [facility] No medication changes Refer to EP for consult on PVC ablation Encouraged to try to hydrate with at least 64 oz fluid daily Repeat labs including follow up for iron infusion 08/01/24 at [facility] NYHA class III stage C [...] exercise test for risk stratification 06/14/24 at [facility] Labs today Refer back to EP [...] messaged for pt's arm MRI 05/12/24 at [facility] 24-Holter monitor to assess PVC burden 04/08/24 at [facility] Reduce Lasix to 20 mg as needed weight gain greater than 3 pounds / 1-2 days, increased leg swelling, increased shortness of breath Stop carvedilol 12.5 mg twice daily and start metoprolol XL 100 mg daily Pt encouraged to hydrate in the range of 8 glasses fluid daily Repeat Sleep study in-lab Message to Device to assess PVC burden 03/04/24 at [facility] Plan: increase entresto to 97-103mg BID Pt will monitor wt at home and repeat labs in a week, if wt has not improved would double lasix dose for 3-4 days F/u in 1 months - would repeat ekg and if QRS wide with LBBB pattern ask EP if we need to upgrade to [employer] ADVISOR given low EF and recent admission with decrease in GDMT 08/25/23 at [facility] Shared Clinical Summary 1. [...] - Stopped Dapa because she had a sukhijnder infection 2 weeks after starting. Interim: - [...] Post op right lobectomy DOS 11/10/22 at [facility]. Anemia of chronic renal failure 11/30/2020 12/30/2022 Dilated cardiomyopathy (HCC-CMS) 11/30/2020 12/30/2022 Overview (11/24/2024): 10/04/24 at [facility] No medication changes Refer to EP for consult on PVC ablation Encouraged to try to hydrate with at least 64 oz fluid daily Repeat labs including follow up for iron infusion 08/01/24 at [facility] NYHA class III stage C [...] exercise test for risk stratification 06/14/24 at [facility] Plan Labs today Refer back to [...] messaged for pt's arm MRI 05/12/24 at [facility] Plan 24-Holter monitor to assess PVC burden 04/08/24 at [facility] Reduce Lasix to 20 mg as needed weight gain greater than 3 pounds / 1-2 days, increased leg swelling, increased shortness of breath Stop carvedilol 12.5 mg twice daily and start metoprolol XL 100 mg daily Pt encouraged to hydrate in the range of 8 glasses fluid daily Repeat Sleep study in-lab Message to Device to assess PVC burden 03/04/24 at [facility] Plan: increase entresto to 97-103mg BID Pt will monitor wt at home and repeat labs in a week, if wt has not improved would double lasix dose for 3-4 days F/u in 1 months - would repeat ekg and if QRS wide with LBBB pattern ask EP if we need to upgrade to [employer]OR given low EF and recent admission with decrease in GDMT 08/25/23 at [facility] Shared Clinical Summary 1. [...] se due to type 2 diabetes mellitus ([facility]) 08/17/2018 12/30/2022 Overview (09/28/2024): 08/26/24 at [facility] CKDIII - renal function back to baseline. Serum creatinine 1.28. continue current dose of diuretics. DM - continue SGLT-2 inhibitor, no changes made, maintain A1c <7%, avoid NSAIDs Gout - on allopurinol - does not want to take prednisone, encouraged to follow- up with rheumatology. 04/25/24 at [facility] - Dr. Omayra Chapin Echocardiogram showed severely [...] Referred by Endo to Dr Cornel Cutler ([facility]). Latest Cr 06/06/19 1.14, Hgb 10.3 Constipation 01/21/2018 12/30/2022 Eczema 01/21/2018 12/30/2022 Gout 01/21/2018 12/30/2022 Overview (12/30/2022): 2018 Left toe 2018 Left toe Implantable cardioverter-defibrillator (ICD) in situ 01/21/2018 12/30/2022 Overview (10/30/2023): [facility] - 08/25/23 Cardiology Shared Clinical [...] disease, with long-term current use of insulin ([facility]) 08/03/2007 12/30/2022 Overview (12/22/2024): DM dx: ~[id number] per patient reports Glucometer: Freestyle Clif 3 Plus Current Diabetes RX: Lantus Solostar - inject 8 units daily at bedtime Jardiance 25 mg daily every morning (CKD/HF) MARCO-I/ARB: Entresto 24/26 mg twice daily (prescribed by [facility]) Statin: Atorvastatin 40 mg daily at bedtime (prescribed by [facility]) Pneumococcal vaccine: PPSV23 (02/16/09) Diabetes foot exam: 12/20/24 at [facility] Patient with symptoms of arthritic pain in the pedal joints... Patient understands that these measures are conservative measures to help handle the osteoarthritic flares Patient found to have contracted and hammered digits of bilateral forefoot. Due to patients current age and activity level, will continue with conservative management of these deformities. C there are devices that will help reduce chance of irritation, pressure points, blisters, and/or infection. Patient with decreased pulses bilateral feet. Patient encouraged to ambulate as often as possible to promote blood flow Pain and swelling around the right great toe patient notes that she has pain within the right great toe that does have any redness or swelling Nail debridement performed to nails 1-5 bilateral as nails 02/26/23, podiatry referral sent on 10/09/23 by PCP Diabetes retinal exam: 02/09/24 at [facility] No retinopathy Meibomian Gland Dysfunction OU. Hot compresses for 10 minutes 4 times daily. Monitor. Pterygium OS. Mildly inflammed pterygium, consider Lotemax if irritation worsens. Resolved Problems Problem Noted Date Diagnosed Date Resolved Date Obesity 12/30/2022 12/30/2022 09/28/2024 Chronic systolic heart failure (HCC-CMS) 11/30/2020 12/30/2022 10/28/2023 Overview (12/30/2022): Dr. Jens Rosas, [facility] Dr. Jens Rosas, [facility] Diabetic nephropathy associa tanisha with type 2 diabetes mellitus ([facility]) 11/30/2020 12/30/2022 10/28/2023 Encounters Date Type Department Care Team Description 11/24/2024 2:00 PM EDT Telemedicine Visit [address] [phone] Reza Britt, Patsy Type 2 diabetes mellitus with stage 3b chronic kidney disease, with long-term current use of insulin ([facility]) (Primary Dx); Heart failure with reduced ejection fraction, NYHA class III ([facility]); Stage 3 chronic kidney disease due to type 2 diabetes mellitus ([facility]); Cardiac pacemaker; Essential hypertension; Dilated cardiomyopathy (HCC-CMS); Hyperlipidemia LDL goal <100 11/09/2024 9:40 AM EDT Office Visit [address] [phone] Hallie Dupree NP Lopez, Iris Gout of right foot, unspecified cause, unspecified chronicity (Primary Dx); Insomnia, unspecified type from Last 3 Months Immunizations Immunization Administration [...] Description 01/27/2025 2:40 PM EDT Office Visit [facility] [address] [place] [id number] Reza Britt, PharmD [address] [place] [address] Health Maintenance Due Date Last Done Comments Dental Examination 1955 Medicare Annual Wellness Visit 1974 CT Colonography 2001 FIT/gFOBT 2001 Fecal DNA 2001 Flexible Sigmoidoscopy 2001 Imm-Pneumococcal 65+ (2 of 2 - PCV) 02/16/2010 02/16/2009 Bone Density Screening 2021 Imm-Zoster, Recombinant (2 of 2) 04/23/2023 02/27/20 23 Urine Albumin Creatinine Rat io Screening 02/27/2024 02/26/2023 [id number] ( - season) 2024 021, 09/30/2020 Lipid Screening 10/27/2024 10/28/2023, 12/03, 09/30/2021 Diabetes HbA1c 12/19/2024 06/21/2024, 10/02, 12/30/2022, Additional history exists Depression Monitoring 12/28/2024 09/30/2024 , 03/14/2024, 10/09/2023, Additional history exists Retinopathy Screening 02/08/2025 02/09/2024 Imm-Influenza (Season Ended) 2025, 05/28/2017, 06/07/2015, Additional history exists Falls Prevention 05/30/2025 05/30/2024, 02/26/2023 Serum Creatinine 06/21/2025 06/21/2024, , 02/26/2023, Additional history exists Tobacco Screening 09/30/2025 09/30/2024, 10/28/2023 Diabetes Foot Exam 12/20/2025 12/20/2024, 02/26/2023 Breast Cancer Screening (Mammogram) 04/27/2026 04/27/2024 Colonoscopy 02/13/2032 02/12/2022 Colorectal Cancer Screening 02/13/2032 Imm-DTaP/Tdap/Td (3 - Td or Tdap) 02/26/2033 023, 02/16/2009 Hepatitis C Screening Completed 12/30/2022 Alcohol and Drug Screen Completed 09/28/19, 10/09/2023, 02/26/2023, Additional history exists Procedures Procedure Name Priority Date/Time Associated Diagnosis Comments REFERRAL TO PODIATRY Routine 12/20/2024 3:00 AM EDT Type 2 diabetes mellitus with stage 3b chronic kidney disease, with long-term current use of insulin ([facility]) COMPREHENSIVE METABOLIC PANEL Routine 06/21/2024 2:31 PM EST Type 2 diabetes mellitus with stage 3b chronic kidney disease, with long-term current use of insulin ([facility]) HGA1C W/EAG Routine 06/21/2024 2:31 PM EST Type 2 diabetes mellitus with stage 3b chronic kidney disease, with long-term current use of insulin ([facility]) REFERRAL FOR MAMMOGRAM Routine 3:00 AM EDT Screening mammogram, encounter for REFERRAL TO DIABETIC RETINAL EXAM Routine 02/09/2024 3:00 AM EDT Type 2 diabetes mellitus with stage 3a chronic kidney disease, with long-term current use of insulin ([facility]) LIPIDS W RFLX TO DIRECT LDL Routine 10/28/2023 10:18 AM EDT Preoperative clearance Type 2 diabetes mellitus with stage 3b chronic kidney disease, with long-term current use of insulin ([facility]) MICROALBUMIN/CREATININ E RATIO, URINE, RANDOM Routine 02/26/2023 2:03 PM EDT Type 2 diabetes mellitus with stage 3b chronic kidney disease, with long-term current use of insulin ([facility]) HEPATITIS C AB W/RFLX HCV RNA, QT, RT PCR Routine 12/30/2022 10:40 AM EDT Encounter to establish care from Last 3 Months or Most Recently Relevant to Health Maintenance Results * REFERRAL TO PODIATRY (12/20/2024 3:00 AM EDT) 12/20/2024 3:00 AM EDT us Reza Britt PharmD REFERRAL Final Res ult * (ABNORMAL) HGA1C W/EAG (06/21/2024 2:31 PM EST) HEMOGLOBIN A1C 6.3(H) <5.7 % of total Hgb [facility] Comment: For someone without known diabetes, a [...] diabetes for children. EAG (MG/DL) 134 mg/dL [facility] EAG (MMOL/L) 7.4 mmol/L [facility] Blood Blood / Unknown 06/21/2024 2 :31 PM EST 06/21/2024 2:32 PM EST Narrative [facility] - 06/22/2024 12:48 PM EST FASTING:NO us Cordelia Moraes PA-C LAB - BLOOD DRAW Final Resul t [facility] [address] [place] [id number], [facility] [address] [place] [phone] * (ABNORMAL) COMPREHENSIVE METABOLIC PANEL (06/21/2024 2:31 PM EST) GLUCOSE 101 65 - 139 mg/dL [facility] Comment: ?Non-fasting reference interval UREA NITROGEN (BUN) 24 7 - 25 mg/dL [facility] CREATININE (blood) 1.66(H) 0.50 - 1.05 mg/dL [facility] EGFR 33(L) > OR = 60 mL/min/1. 73m2 [facility] BUN/CREATININE RATIO 14 6 - 22 (calc) [facility] SODIUM 134(L) 135 - 146 mmol/L [facility] POTASSIUM 4.4 3.5 - 5.3 mmol/L [facility] CHLORIDE 94(L) 98 - 110 mmol/L [facility] CARBON DIOXIDE 28 20 - 32 mmol/L [facility] CALCIUM 9.6 8.6 - 10.4 mg/dL [facility] PROTEIN, TOTAL 7.6 6.1 - 8.1 g/dL [facility] ALBUMIN 4.3 3.6 - 5.1 g/dL [facility] GLOBULIN 3.3 1.9 - 3.7 g/dL (calc) [facility] ALBUMIN/GLOBULI N RATIO 1.3 1.0 - 2.5 (calc) [facility] BILIRUBIN, TOTAL 0.4 0.2 - 1.2 mg/dL [facility] ALKALINE PHOSPHATASE 79 37 - 153 U/L [facility] AST 14 10 - 35 U/L [facility] ALT 10 6 - 29 U/L [facility] Blood Blood / Unknown 06/21/2024 2 :31 PM EST 06/21/2024 2:32 PM EST Narrative [facility] [facility] - 06/22/2024 12:48 PM EST FASTING:NO us Cordelia Moraes PA-C LAB - BLOOD DRAW Edited Resu lt - Final [facility] [address] [address], [facility] [address] [phone] * REFERRAL FOR MAMMOGRAM SCREENING (04/27/2024 3:00 [...] AM EDT) CHOLESTEROL, TOTAL 131 <200 mg/dL [facility] HDL CHOLESTEROL 35(L) > OR = 50 mg/dL [facility] TRIGLYCERIDES 158(H) <150 mg/dL [facility] LDL-CHOLESTEROL 72 99 mg/dL (calc) [facility] Comment: Reference range: <100 Desirable range <100 mg/dL for primary prevention; ?? <70 mg/dL for patients with CHD or diabetic patients with > or = 2 CHD risk factors. LDL-C is now calculated using the Len-Muller calculation, which is a validated novel method providing better accuracy than the Friedewald equation in the estimation of LDL-C. Len SS et al. JENNIFER. 2013;310(19): 1858-4220 (http://education.PapayaMobile/faq/NPB073) CHOL/HDLC RATIO 3.7 <5.0 (calc) [facility] NON-HDL CHOLESTEROL 96 <130 mg/dL (calc) [facility] Comment: For patients with diabetes plus 1 major ASCVD risk factor, treating to a non-HDL-C goal of <100 mg/dL (LDL-C of <70 mg/dL) is considered a therapeutic option. Blood Blood / Unknown 10/28/2023 1 0:18 AM EDT 10/28/2023 10:18 AM EDT Narrative [facility] - 10/29/2023 9:14 AM EDT FASTING:YES Cordelia Moraes PAOliviaC LAB - BLOOD DRAW Final Resul t Performing Organization Address [facility] de Phone Number [facility] [facility] [address] [address], [facility] [address] [phone] * MICROALBUMIN/CREATININE RATIO, URINE, RANDOM (02/26/2023 2:03 PM EDT) CREATININE, RANDOM URINE 37 20 - 275 mg/dL [facility] MICROALBUMIN <0.2 mg/dL [facility] [employer] Comment: Reference Range Not established MICROALBUMIN/CREA TININE RATIO, RANDOM URINE NOTE <30 [facility] [employer] Comment: NOTE: The urine albumin value is [...] 2:04 PM EDT Richa Atkins NP LAB URINE AMBULATORY Final Resul t Performing Organization Address [facility] Co de Phone Number [facility] [address] [address], [facility] [address] [phone] * Hep C Antibody with Reflex HCV RNA (12/30/2022 10:40 AM EDT) HEPATITIS C ANTIBODY NON-REACT OBI NON-REACT OBI [facility] SIGNAL TO CUT-OFF 0.11 <1.00 [facility] Comment: HCV antibody was non-reactive. There is no laboratory evidence of HCV infection. In most cases, no further action is required. However, if recent HCV exposure is suspected, a test for HCV RNA (test code 82121) is suggested. For additional information please refer to http://education.[employer]ova[employer]parks/faq/AIN58f9 (This link is being provided for informational/ educational purposes only.) Blood Blood / Unknown 12/30/2022 1 0:40 AM EDT 12/30/2022 10:40 AM EDT Narrative [facility] [employer] - 12/31/2022 7:57 AM EDT FASTING:YES Cordelia Moraes PA-C LAB - BLOOD DRAW Edited Resu lt - Final [facility] [employer] [address] [place] [id number], [facility] [address] [place] [address] from Last 3 Months or Most Recently Relevant to Health Maintenance Insurance [facility] [place] [id number] Care Teams Meringuer Relationship Specialty Start Date End Date Cordelia Moraes PA-C [address] [place] [address] PCP - General Internal Medicine 09/05/22
--- NOTE | 2025-01-06 14:26 | HO.NEPHOV ---
Vital Signs 01/06/25 14:32 Height 4 ft 11 in Weight 128 lb BMI 25.9 BP 84/60 L Blood Pressure Location Rt brachial Position Sitting Pulse 61 Pulse Source Pulse Oximeter Pulse Oximetry (%) 94 Oxygen Delivery Method Room Air Intake Visit Reasons: CKD/ Conf Graphics Production Specialist Required: Yes Graphics Production Specialist Language: Lump Maker Services: Graphics Production Specialist Present Graphics Production Specialist Name: Compa [id number] Information Interpreted: clinical only Accompanied by: Self / Same As Patient Allergies egg [EGG] Allergy (Intermediate, Verified 01/06/25 14:31) RASH Fish Containing Products Allergy (Intermediate, Verified 01/06/25 14:31) RASH oxycodone [OXYCODONE] Allergy (Intermediate, Verified 01/06/25 14:31) RASH acetaminophen [From PERCOCET] Allergy (Unknown, Verified 01/06/25 14:31) RASH/ITCHING codeine [CODEINE] Allergy (Unknown, Verified 01/06/25 14:31) ITCHING hydrocodone [From VICODIN] Allergy (Unknown, Verified 01/06/25 14:31) UNKNOWN lisinopril [LISINOPRIL] Allergy (Unknown, Verified 01/06/25 14:31) UNKNOWN metoclopramide [From REGLAN] Allergy (Unknown, Verified 01/06/25 14:31) UNKNOWN naproxen [Naprosyn] Allergy (Unknown, Verified 01/06/25 14:31) Unknown tramadol Allergy (Unknown, Verified 01/06/25 14:31) Unknown Medication List - Last Reconciled 01/06/25 by Tavares Cutler MD apixaban (Eliquis) 5 mg PO BID aspirin 81 mg PO DAILY atorvastatin 40 mg PO DAILY cholecalciferol (vitamin D3) 50 mcg PO DAILY colchicine 0.6 mg PO DAILY empagliflozin (Jardiance) 25 mg PO DAILY fluticasone propionate 50 mcg/actuation 50 mcg intranasal DAILY PRN furosemide 40 mg See Protocol PO BID@0900,1800 gabapentin 600 mg PO TID insulin glargine (Lantus Solostar U-100 Insulin) 8 units subcut BEDTIME lancets To test blood glucose 2 times a day lancing device (Adjustable Lancing Device) 3 times a day loratadine 10 mg PO DAILY PRN metoprolol succinate ER mg PO DAILY multivitamin with folic acid 400 mcg (Daily-Mallika (with folic acid)) 1 tab PO DAILY omeprazole 10 mg PO DAILY@0630 pen needle, diabetic (BD Radha 2nd Gen Pen Needle) once a day sacubitril-valsartan 24-26 mg (Entresto) 1 tab See Protocol PO BID silver sulfadiazine 1% 1 appl topical DAILY PRN spironolactone 25 mg PO BID triamcinolone acetonide 0.5% 1 appl topical BID PRN zolpidem 5 mg PO BEDTIME PRN HPI Comments Details: 68 yr old woman with DM and HTN with CKD Complains of pain and swelling of the right foot She had a course of prednisone - but not taking it Echocardiogram showed severely dilated left ventricle with severe global hypokinesis Today she has no shortness of breath. She is compliant with all her medications. No lightheadedness. Graphics Production Specialist service was used Another episode of gout Recently hospitalized for dyspnea in January 29 08/26/24 Recently received IV Iron Jardiance has been added in Jun 2024 01/06/25 69-year-old female presenting with iron deficiency anemia. She reports low blood pressure observed today, potentially due to ongoing cardiac medication, but denies any associated symptoms like lightheadedness. Her anemia history includes prior treatment with iron infusions, and a test is necessary today to evaluate her current status, as paperwork errors previously precluded a recent test. She describes a sensation of choking during exertion activities like descending stairs, dressing, and showering, although she notes relief from her previous right knee pain, which had once hindered her mobility. The most recent attempt for blood work was unsuccessful due to administrative complications. Tests today will monitor kidney function and hemoglobin to ascertain anemia status and decide on further iron infusions. [facility] Medical History Pericardial cyst CHF (congestive heart failure) CHF (congestive heart failure) Hypoglycemia unawareness associated with type 2 diabetes mellitus Vitamin D deficiency Diabetic neuropathy associated with type 2 diabetes mellitus CKD (chronic kidney disease) stage 3, GFR 30-59 ml/min Hypertension Dyslipidemia custodial (current) use of insulin Non-toxic multinodular goiter Diabetes type 2, uncontrolled Surgical History Hx of biopsy AICD (automatic cardioverter/defibrillator) present Hx of appendectomy Hx of hysterectomy Family History Father Alcoholism Diabetes Mother Arthritis Hypertension Social History Household Members: None Household Members Other:: Lives by self Housing: Apartment Do you presently have visiting nurse or other home services: Yes Unable to assess alcohol history related to: Unknown Alcohol intake: current Alcohol intake frequency: does not drink Patient Tobacco Use Status: Never used Tobacco e-Cigarette/Vaping Use: Never Used Second Hand Smoke Exposure: No service: No Physical Exam Vital Signs: Last Vital Signs Pulse 61 01/06/25 14:32 BP 84/60 L 01/06/25 14:32 Pulse Ox 94 01/06/25 14:32 Oxygen Delivery Method Room Air 01/06/25 14:32 BMI result Body Mass Index 25.9 Comfortable Neck supple no JVD. Lungs entry equal no rales. Heart S1-S2 heard no gallop or rub. Abdomen soft nontender. Neuro alert awake oriented. No asterixis. Extremities no edema. Results Reviewed Nephrology Results: Sodium 143 mmol/L (135-145) 08/26/24 Potassium 3.8 mmol/L (3.3-5.1) 08/26/24 Chloride 105 mmol/L (96-108) 08/26/24 Carbon Dioxide 30 mmol/L (22-29) H 08/26/24 BUN 16 mg/dL (9-16) 08/26/24 Creatinine 1.29 mg/dL (0.5-1.4) 08/26/24 Calcium 9.0 mg/dL (8.4-10.2) 08/26/24 Assessment & Plan Assessment & Plan (1) CKD (chronic kidney disease) stage 3, GFR 30-59 ml/min: Code(s): N18.30 - Chronic kidney disease, stage 3 unspecified Category: Medical Qualifiers: Chronic kidney disease stage 3 subtype: unspecified whether 3a or 3b Qualified Code(s): N18.30 - Chronic kidney disease, stage 3 unspecified (2) CKD (chronic kidney disease): Code(s): N18.9 - Chronic kidney disease, unspecified Category: Medical Plan Middle aged woman with a longstanding hypertension diabetes mellitus with CKD. She has stage III CKD. Renal function back to baseline. Serum creatinine 1.28. She appears euvolemic. Continue current dose of diuretics. Encouraged her to stay on low-sodium diet. Continue with current medications including SGLT2 inhibitors and no changes were made. Maintain A1c less than 7% Avoid nephrotoxic agents including NSAIDs. Gout On Allopurinol Does not want to take prednisone. Encouraged her to follow up with Rheumatology. h/o Anemia Repeat CBC and iron levels Asymptomatic hypotension secondary to meds Orders: Orders Complete Blood Count Auto Diff Today N18.9 - Chronic kidney disease, unspecified Comprehensive Met. Panel Today N18.9 - Chronic kidney disease, unspecified Ferritin Today N18.9 - Chronic kidney disease, unspecified IRON PROFILE Today N18.9 - Chronic kidney disease, unspecified Coding Level of Care Code Est Pt Level 4 (76828) Diagnoses Stage 3 chronic kidney disease, unspecified whether stage 3a or 3b CKD N18.30 Chronic kidney disease stage 3 subtype: unspecified whether 3a or 3b CKD (chronic kidney disease) N18.9
[2025-01-06 14:32] VITALS: BP 84/60; PULSE 61; O2SAT 94; BMI 25.9
== END 2025-01-06 14:58 | disposition home or self-care (01) ==
LOC: HO.HKA 14:11
PROVIDERS: PCP Physician Assistant; Visit Provider Internal Medicine Hypertension Specialist
DX: N18.30 Chronic kidney disease, stage 3 unspecified (principal); N18.9 Chronic kidney disease, unspecified
CPT/HCPCS: 99214

== ENCOUNTER 2025-03-21 13:13 | Outpatient (AMB) | payer OTHER, SELFPAY ==
[2025-03-21 13:17] VITALS: BP 82/60; PULSE 68; O2SAT 96; BMI 25.4
--- NOTE | 2025-03-21 13:17 | HO.NEPHOV ---
Vital Signs 03/21/25 13:17 Height 4 ft 11 in Weight 126 lb BMI 25.4 BP 82/60 L Blood Pressure Location Lt brachial Position Sitting Pulse 68 Pulse Source Pulse Oximeter Pulse Oximetry (%) 96 Oxygen Delivery Method Room Air Intake Visit Reasons: FU/ Conf Customer Service Coordinator Required: Yes Customer Service Coordinator Name: Myles [id number] Accompanied by: Self / Same As Patient Allergies egg (EGG) Allergy (Intermediate, Verified 03/21/25 13:19) RASH Fish Containing Products Allergy (Intermediate, Verified 03/21/25 13:19) RASH oxycodone (OXYCODONE) Allergy (Intermediate, Verified 03/21/25 13:19) RASH acetaminophen (From PERCOCET) Allergy (Unknown, Verified 03/21/25 13:19) RASH/ITCHING codeine (CODEINE) Allergy (Unknown, Verified 03/21/25 13:19) ITCHING hydrocodone (From VICODIN) Allergy (Unknown, Verified 03/21/25 13:19) UNKNOWN lisinopril (LISINOPRIL) Allergy (Unknown, Verified 03/21/25 13:19) UNKNOWN metoclopramide (From REGLAN) Allergy (Unknown, Verified 03/21/25 13:19) UNKNOWN naproxen (Naprosyn) Allergy (Unknown, Verified 03/21/25 13:19) Unknown tramadol Allergy (Unknown, Verified 03/21/25 13:19) Unknown Medication List - Last Reconciled 03/21/25 by Tavares Cutler MD apixaban (Eliquis) 5 mg PO BID aspirin 81 mg PO DAILY atorvastatin 40 mg PO DAILY cholecalciferol (vitamin D3) 50 mcg PO DAILY colchicine 0.6 mg PO DAILY empagliflozin (Jardiance) 25 mg PO DAILY fluticasone propionate 50 mcg/actuation 50 mcg intranasal DAILY PRN furosemide 40 mg See Protocol PO BID@0900,1800 gabapentin 600 mg PO TID insulin glargine (Lantus Solostar U-100 Insulin) 8 units subcut BEDTIME lancets To test blood glucose 2 times a day lancing device (Adjustable Lancing Device) 3 times a day loratadine 10 mg PO DAILY PRN metoprolol succinate ER mg PO DAILY multivitamin with folic acid 400 mcg (Daily-Mallika (with folic acid)) 1 tab PO DAILY omeprazole 10 mg PO DAILY@0630 pen needle, diabetic (BD Radha 2nd Gen Pen Needle) once a day sacubitril-valsartan 24-26 mg (Entresto) 1 tab See Protocol PO BID silver sulfadiazine 1% 1 appl topical DAILY PRN spironolactone 25 mg PO BID triamcinolone acetonide 0.5% 1 appl topical BID PRN zolpidem 5 mg PO BEDTIME PRN HPI Comments Details: 68 yr old woman with DM and HTN with CKD Complains of pain and swelling of the right foot She had a course of prednisone - but not taking it Echocardiogram showed severely dilated left ventricle with severe global hypokinesis Today she has no shortness of breath. She is compliant with all her medications. No lightheadedness. Customer Service Coordinator service was used Another episode of gout Recently hospitalized for dyspnea in January 29 08/26/24 Recently received IV Iron Jardiance has been added in Jun 2024 01/06/25 69-year-old female presenting with iron deficiency anemia. She reports low blood pressure observed today, potentially due to ongoing cardiac medication, but denies any associated symptoms like lightheadedness. Her anemia history includes prior treatment with iron infusions, and a test is necessary today to evaluate her current status, as paperwork errors previously precluded a recent test. She describes a sensation of choking during exertion activities like descending stairs, dressing, and showering, although she notes relief from her previous right knee pain, which had once hindered her mobility. The most recent attempt for blood work was unsuccessful due to administrative complications. Tests today will monitor kidney function and hemoglobin to ascertain anemia status and decide on further iron infusions. 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 Non-toxic multinodular goiter Diabetes type 2, uncontrolled Surgical History Hx of biopsy AICD (automatic cardioverter/defibrillator) present Hx of appendectomy Hx of hysterectomy Family History Father Alcoholism Diabetes Mother Arthritis Hypertension Social History Household Members: None Household Members Other:: Lives by self Housing: Apartment Do you presently have visiting nurse or other home services: Yes Unable to assess alcohol history related to: Unknown Alcohol intake: current Alcohol intake frequency: does not drink Patient Tobacco Use Status: Never used Tobacco e-Cigarette/Vaping Use: Never Used Second Hand Smoke Exposure: No service: No Physical Exam Vital Signs: Last Vital Signs Pulse 68 03/21/25 13:17 BP 82/60 L 03/21/25 13:17 Pulse Ox 96 03/21/25 13:17 Oxygen Delivery Method Room Air 03/21/25 13:17 BMI result Body Mass Index 25.4 Comfortable Neck supple no JVD. Lungs entry equal no rales. Heart S1-S2 heard no gallop or rub. Abdomen soft nontender. Neuro alert awake oriented. No asterixis. Extremities no edema. Results Reviewed Nephrology Results: Hgb, (12.0-16.0) 12.7 g/dl 01/06/25 WBC, (4.8-10.8) 14.5 X10*3/uL H 01/06/25 Plt Count, (160-400) 265 X10*3/uL 01/06/25 Sodium, (135-145) 140 mmol/L 01/06/25 Potassium, (3.3-5.1) 4.3 mmol/L 01/06/25 Chloride, (96-108) 100 mmol/L 01/06/25 Carbon Dioxide, (22-29) 29 mmol/L 01/06/25 BUN, (9-16) 27 mg/dL H 01/06/25 Creatinine, (0.5-1.4) 1.54 mg/dL H 01/06/25 Calcium, (8.4-10.2) 9.5 mg/dL 01/06/25 Assessment & Plan Assessment & Plan (1) CKD (chronic kidney disease) stage 3, GFR 30-59 ml/min: Code(s): N18.30 - Chronic kidney disease, stage 3 unspecified Category: Medical Qualifiers: Chronic kidney disease stage 3 subtype: unspecified whether 3a or 3b Qualified Code(s): N18.30 - Chronic kidney disease, stage 3 unspecified (2) CKD (chronic kidney disease): Code(s): N18.9 - Chronic kidney disease, unspecified Category: Medical (3) CHF (congestive heart failure): Code(s): I50.9 - Heart failure, unspecified Category: Medical Plan Middle aged woman with a longstanding hypertension diabetes mellitus with CKD. She has stage III CKD. Renal function back to baseline. Serum creatinine 1.28. She appears euvolemic. Continue current dose of diuretics. Encouraged her to stay on low-sodium diet. Continue with current medications including SGLT2 inhibitors and no changes were made. Maintain A1c less than 7% Avoid nephrotoxic agents including NSAIDs. Gout On Allopurinol Does not want to take prednisone. Encouraged her to follow up with Rheumatology. h/o Anemia Repeat CBC and iron levels Asymptomatic hypotension secondary to meds 03/20/25 LALO on CKD with low BP Probably hypoperfusion from low BP and volume depletion Suggest to DECREASE LASIX to 40 mg QD from BID Watch for edema Stay on low salt diet Orders: Orders Basic Metabolic Panel 3 Months I50.9 - Heart failure, unspecified, N18.9 - Chronic kidney disease, unspecified Coding Level of Care Code Est Pt Level 4 (20880) Diagnoses Stage 3 chronic kidney disease, unspecified whether stage 3a or 3b CKD N18.30 Chronic kidney disease stage 3 subtype: unspecified whether 3a or 3b CKD (chronic kidney disease) N18.9 CHF (congestive heart failure) I50.9
--- OUTSIDE RECORDS SUMMARY | 2025-03-21 14:23 | XMS_ITS | Clinical Summary ---
Author Organization [employer] Address [address] [place] [address] Care Team Providers Care Senior Data Warehouse Developer Name Role Phone Unavailable Primary Care Provider Unavailabl e Social History Tobacco Use Types Packs/Day Years Used Date Smoking Tobacco: Never Assessed Comments Unknown Sex and Gender Information Value Date Recorded Sex Assigned at Female 06/02/2022 10:16 AM EDT Legal Sex Female 10:16 AM EDT Gender Identity Female 06/02/2022 10:16 AM EDT Sexual Orientation Straight 06/02/2022 10 :16 AM EDT Plan of Treatment Upcoming Encounters Date Type Department Care Team (Late st Contact Info) Description 03/24/2025 11:00 AM EDT Office Visit [facility] [address] [place] [address] Shanti Landis, DDS [address], [place] [id number] Health Maintenance Due Date Last Done Comments CT Colonography 1956 Colonoscopy 1956 Colorectal Cancer Screening 1956 Depression Screening 1956 FIT DNA/Cologuard 1956 FIT 1956 FOBT 1956 Lipid Panel 1956 SDOH Screening 1956 Sigmoidoscopy 1956 Alcohol/Substance Use Screening 1968 Tobacco Screening 1968 Hepatitis C Screening 1974 Mammogram 1996 Pneumococcal Vaccine: 50+ Years (2 of 2 - PCV) 02/16/2010 02/16/2009 RSV Patients and Patients Aged 60 years or older (1 - Risk 60-74 years 1-dose series) 2016 Dental X-Ray: Full Mouth 02/12/2019 02/12/2016 Dental X-Ray: Bitewings 05/28/2019 05/27/20 18, 04/09/2017, 02/12/2016, Additional history exists Dental Oral Exam 12/08/2019 06/08/2019, , 04/09/2017, Additional history exists Dental Prophylaxis 12/08/2019 06/08/2019, 0 12/01/2018, 05/27/2018, Additional history exists Zoster Vaccines (2 of 2) 04/23/2023 02/26/2023 COVID-19 Vaccine (3 - season) 2024 10/29/2020, 09/30/2020 Influenza Vaccine (#1) 2025 0, 10/17/2019, 05/28/2017 DTaP/Tdap/Td Vaccines (3 - Td or Tdap) 02/26/2033 02/26/2023, 02/16/2009 HIB Vaccines Aged Out No longer eligi [...] Relevant to Health Maintenance Insurance DENTAL - [facility]
--- OUTSIDE RECORDS SUMMARY | 2025-03-21 14:23 | XMS_ITS | Clinical Summary ---
Author Organization [facility] Address [address] [address] [place] [address] Phone Care Team Providers Care Credit Underwriter Name Role Phone Catherine Cuellar MD Primary Care Provider [phone] Allergies Active Allergy Reactions Criticality Noted Date [...] failure 11/30/2020 Overview (11/30/2020): Dr. Jens Rosas, [facility] cardiology Hypertensive disorder 11/30/2020 Hypercholesterolemia 11/30/2020 Gastroesophageal reflux disease 11/30/2020 Fibromyalgia 11/30/2020 Ectopic kidney 11/30/2020 Dilated cardiomyopathy 11/30/2020 Overview (11/30/2020): 05/2017 EF 40% Dr. Jens Rosas -[facility] cardiology. AICD Proteinuria 11/30/2020 Renal disorder due to type 2 diabetes mellitus 0 11/30/2020 Pain of knee region 05/03/2019 Chronic kidney disease stage 3 due to type 2 diabetes mellitus 08/17/2018 Overview (11/30/2020): Cr 2.0 on 07/29/18 - outside labs by Endo. Referred by Josue to Dr Cornel Cutler ([facility]). Latest Cr 06/06/19 1.14, Hgb 10.3 [...] Diabetes: Hemoglobin A1C 09/21/2024 06/21/2024 Influenza Vaccine (#1) 2025 0, 05/28/2017 Pneumococcal Vaccine: Peds ( 0 to 5 Years) and At-Risk Patients (6 to 49 Years) Discontinued 02/16/2009 Hepatitis B Vaccine Aged Out No longe r eligible based on patient's age to complete this topic Insurance [facility] ([id number]) [facility] ([id number]) Care Teams Credit Underwriter Relationship Specialty Start Date End Date Catherine Cuellar MD PCP - General 08/13/20
--- OUTSIDE RECORDS SUMMARY | 2025-03-21 14:23 | XMS_ITS | Clinical Summary ---
Author Organization [facility] Address [address] [place] [address] Care Team Providers Care Linux Server Administrator Name Role Phone Cordelia Moraes PA-C Primary Care Provider [phone] Source Comments PLEASE NOTE, if this patient [...] disease, with long-term current use of insulin ([facility]) Use to test blood glucose three times daily. 100 Each 11 024 Active triamcinolone (KENALOG) 0.5 % cream APPLY TO AFFECTED AREA TWICE DAILY FOR 2 WEEKS. THEN ON AND OFF NEEDED FOR FLARES. 15 g 1 024 Active metoprolol succinate XL (TOPROL-XL) 100 mg 24 hr tabletIndications :Heart failure with reduced ejection fraction, NYHA class III ([facility]) Take 1 Tablet by mouth once daily (Prescribed by [facility]) Active spironolactone (ALDACTONE) 25 mg tabletIndications :Heart failure with reduced ejection fraction, NYHA class III ([facility]) Take 1 Tablet by mouth once daily (Prescribed by [facility]) Active blood-glucose meter,continuous (FREESTYLE CLIF 3 READER) miscIndications:T ype 2 diabetes mellitus with stage 3a chronic kidney disease, with long-term current use of insulin ([facility]) Use to test blood glucose continuously. (Freestyle Clif 3 reader) 1 Each Active blood-glucose sensor (FREESTYLE CLIF 3 PLUS SENSOR) deviIndications:T ype 2 diabetes mellitus with stage 3a chronic kidney disease, with long-term current use of insulin ([facility]) Place 1 sensor to back of upper arm every 15 days. Use to monitor blood sugar continuously (Freestyle Clif 3 Plus) 2 Each 0[address] Active aspirin [address] tablet TOME MONA TABLETA TODOS LOS D 90 Tablet 2 024 Active lancets (FREESTYLE LANCETS) 28 gaugeIndications: Type 2 diabetes mellitus with stage 3a chronic kidney disease, with long-term current use of insulin ([facility]) Use to test blood glucose three times daily. (Freestyle Lancets) 100 Each 024 Active blood sugar diagnostic stripsIndications :Type 2 diabetes mellitus with stage 3a chronic kidney disease, with long-term current use of insulin ([facility]) Use to test blood glucose three times daily. (Freestyle Lite) 100 Each 024 Active apixaban (ELIQUIS) 5 mg tabIndications:Di lated cardiomyopathy ([facility]),Implanta ble cardioverter-defi brillator (ICD) in situ Take 1 Tablet by mouth 2 (two) times Daily 180 Tablet 1 025 Active empagliflozin (JARDIANCE) 25 mg tabIndications:Ty pe 2 diabetes mellitus with stage 3b chronic kidney disease, with long-term current use of insulin ([facility]),Stage 3 chronic kidney disease due to type 2 diabetes mellitus ([facility]),Heart failure with reduced ejection fraction, NYHA class III ([facility]) Take 1 Tablet by mouth every morning [...] [place] 90 Tablet 1 025 Active tiZANidine (ZANAFLEX) 4 mg tabletIndications :Fibromyalgia Take 1 Tablet by mouth every 8 (eight) hours as needed for muscle spasms 20 Tablet 025 Active gabapentin (NEURONTIN) 600 mg tabletIndications :Fibromyalgia TOME MONA TABLETA ALISTAIR VECES AL ANANTH. 270 Tablet 025 Active loratadine (CLARITIN) 10 mg tablet TOME 1 TABLETA POR VIA ORAL TODOS [place] CUANDO SEA NECESARIO FOR ALLERGIES 90 Tablet 025 Active omeprazole (PRILOSEC) [address] capsule TOME MONA CAPSULA TODOS [place] EN LA MANANA ANTES DEL DESAYUNO 90 Capsule 1 025 Active cholecalciferol (VITAMIN D-3) 50 mcg (2,000 unit) capsule TOME 1 CAPSULA POR VIA ORAL TODOS [place]. 90 Capsule 1 025 Active zolpidem (AMBIEN) 5 mg tabletIndications :Insomnia, unspecified type Take 1 Tablet by mouth nightly at bedtime NEEDED FOR SLEEP!!. 30 Tablet 025 Active BD LISA 2ND GEN PEN NEEDLE 32 gauge x ndleIndications:T ype 2 diabetes mellitus with stage 3b chronic kidney disease, with long-term current use of insulin ([facility]) 1 to 3 (one to three) times daily Use to inject insulin as per order. 100 Each 025 Active MISCELLANEOUS MEDICAL SUPPLY MISC by miscellaneous route daily Digital scale, disp 1, lifetime need, dx heart failure, needs daily weight checks. 1 Each 025 Active ENTRESTO 24-26 mg tabIndications:He art failure with reduced ejection fraction, NYHA class III (CMS & [facility]HS[facility]HCC) TOME 1 TABLETA POR VIA ORAL DOS VECES AL ANANTH 60 Tablet 2 025 Active furosemide (LASIX) 40 mg tabletIndications :Heart failure with reduced ejection fraction, NYHA class III (CMS & HHS-HCC) TOME 1 TABLETA POR VIA ORAL DOS VECES AL ANANTH 180 Tablet 1 025 Active DAILY-MOSES, WITH FOLIC ACID, 400 mcg tabIndications:Ch ronic kidney disease, stage 3b (CMS & HHS-HCC) TOME 1 TABLETA POR VIA ORAL TODOS [place] 90 Tablet 1 025 Active BD LISA 2ND GEN PEN NEEDLE 32 gauge x ndleIndications:T ype 2 diabetes mellitus with stage 3b chronic kidney disease, with long-term current use of insulin (CMS & [facility]HS[facility]HCC) 1 to 3 (one to three) times daily Use to inject insulin as per order 100 Each 11 024 2024 Discontinued(R eorder (E-Cancel Not Sent)) cholecalciferol (VITAMIN D-3) 50 mcg (2,000 unit) capsule TOME 1 CAPSULA POR VIA ORAL TODOS [place] 90 Capsule 1 025 2024 Discontinued(R eorder (E-Cancel Not Sent)) omeprazole (PRILOSEC) [address] capsule TOME MONA CAPSULA TODOS [place] EN LA MANANA ANTES DEL [place]AY[place] 90 Capsule 1 025 2024 Discontinued DAILY-MOSES, WITH FOLIC ACID, 400 mcg tabIndications:Ch ronic kidney disease, stage 3b (CMS & HHS-HCC) TOME 1 TABLETA POR VIA ORAL TODOS [place] 90 Tablet 1 025 2024 Discontinued furosemide (LASIX) 40 mg tabletIndications :Heart failure with reduced ejection fraction, NYHA class III (CMS & HHS-HCC) TOME 1 TABLETA POR VIA ORAL DOS VECES AL ANANTH 180 Tablet 1 025 2024 Discontinued ENTRESTO 24-26 mg tabIndications:He art failure with reduced ejection fraction, NYHA class III (CMS & HHS-HCC) TOME 1 TABLETA POR VIA ORAL DOS VECES AL ANANTH 60 Tablet 2 025 2024 Discontinued zolpidem (AMBIEN) 5 mg tabletIndications :Insomnia, unspecified type TAKE 1 TABLET BY MOUTH NIGHTLY AT BEDTIME NEEDED FOR SLEEP!! 30 Tablet 025 2024 Discontinued(R eorder (E-Cancel Not Sent)) Active Problems Problem Noted Date Diagnosed Date Carpal tunnel syndrome of right wrist 09/30/2024 Degenerative tear of medial meniscus of right kn ee 10/11/2023 History of appendectomy 12/30/2022 12/31/19 Hx of cholecystectomy 12/30/2022 12/30/2022 Cardiac pacemaker 12/30/2022 12/30/2022 Overview (06/21/2024): 06/14/24 at [facility] Cardio Plan ~Labs today ~Refer [...] messaged for pt's arm MRI 05/12/24 at [facility] Cardio Plan ~24-Holter monitor to assess PVC burden 04/08/24 at [facility] Cardio Plan ~Reduce Lasix to [...] Device to assess PVC burden 03/04/24 at [facility] Cardio Plan: - increase entresto to 97-103mg BID - pt will monitor wt at home and repeat labs in a week, if wt has not improved would double lasix dose for 3-4 days - f/u in 1 months - would repeat ekg and if QRS wide with LBBB pattern ask EP if we need to upgrade to HOUSE PLAYER given low EF and recent admission with decrease in GDMT 08/25/23 at [facility] Cardio Cardiology Shared Clinical Summary [...] reduced e jection fraction, NYHA class III ([facility]) 12/30/2022 12/30/2022 Overview (11/24/2024): 10/04/24 at [facility] No medication changes Refer to EP for consult on PVC ablation Encouraged to try to hydrate with at least 64 oz fluid daily Repeat labs including follow up for iron infusion 08/01/24 at [facility] Cardiology NYHA class III stage [...] exercise test for risk stratification 06/14/24 at [facility] Cardio [facility] Labs today Refer back to EP for [...] messaged for pt's arm MRI 05/12/24 at [facility] 24-Holter monitor to assess PVC burden 04/08/24 at [facility] Reduce Lasix to 20 mg as needed weight gain greater than 3 pounds / 1-2 days, increased leg swelling, increased shortness of breath Stop carvedilol 12.5 mg twice daily and start metoprolol XL 100 mg daily Pt encouraged to hydrate in the range of 8 glasses fluid daily Repeat Sleep study in-lab Message to Device to assess PVC burden 03/04/24 at [facility] Cardio Plan: increase entresto to 97-103mg BID Pt will monitor wt at home and repeat labs in a week, if wt has not improved would double lasix dose for 3-4 days F/u in 1 months - would repeat ekg and if QRS wide with LBBB pattern ask EP if we need to upgrade to HOUSE PLAYER given low EF and recent admission with decrease in GDMT 08/25/23 at [facility] Cardio Cardiology Shared Clinical Summary [...] Post op right lobectomy DOS 11/10/22 at [facility]. Anemia of chronic renal failure 11/30/2020 12/30/2022 Dilated cardiomyopathy ([facility]) 12/30/2022 Overview (11/24/2024): 10/04/24 at [facility] No medication changes Refer to EP for consult on PVC ablation Encouraged to try to hydrate with at least 64 oz fluid daily Repeat labs including follow up for iron infusion 08/01/24 at [facility] Cardiology NYHA class III stage [...] exercise test for risk stratification 06/14/24 at [facility] Card[facility] Labs today Refer back to EP for [...] messaged for pt's arm MRI 05/12/24 at [facility] 24-Holter monitor to assess PVC burden 04/08/24 at [facility] Reduce Lasix to 20 mg as needed weight gain greater than 3 pounds / 1-2 days, increased leg swelling, increased shortness of breath Stop carvedilol 12.5 mg twice daily and start metoprolol XL 100 mg daily Pt encouraged to hydrate in the range of 8 glasses fluid daily Repeat Sleep study in-lab Message to Device to assess PVC burden 03/04/24 at [facility]: increase entresto to 97-103mg BID Pt will monitor wt at home and repeat labs in a week, if wt has not improved would double lasix dose for 3-4 days F/u in 1 months - would repeat ekg and if QRS wide with LBBB pattern ask EP if we need to upgrade to HOUSE PLAYER given low EF and recent admission with decrease in GDMT 08/25/23 at [facility] Cardio Cardiology Shared Clinical Summary [...] se due to type 2 diabetes mellitus ([facility]) 08/17/2018 12/30/2022 Overview (01/27/2025): 01/06/[address] [facility] [address] [facility] CKD III, renal function back to baseline, appears euvolemic, continue current dose of diuretics, low-sodium diet, continue current medications including SGLT-2 inhibitor A1c <7% On allopurinol, does not want take prednisone Asymptomatic hypotension, secondary to meds 08/26/[address] [facility] CKDIII - renal function back to baseline. Serum creatinine 1.28. continue current dose of diuretics. DM - continue SGLT-2 inhibitor, no changes made, maintain A1c <7%, avoid NSAIDs Gout - on allopurinol - does not want to take prednisone, encouraged to follow- up with rheumatology. 04/25/[address] [facility] - Dr. Omayra Chapin Echocardiogram showed severely [...] (ICD) in situ 01/21/2018 12/30/2022 Overview (10/30/2023): [facility] - 08/25/23 Cardiology Shared [...] disease, with long-term current use of insulin ([facility]) 08/03/2007 12/30/2022 Overview (01/27/2025): DM dx: ~[phone] per patient reports Glucometer: GCI Comstyle Clif 3 Plus Current Diabetes RX: Jardiance 25 mg daily every morning (CKD/HF) MARCO-I/ARB: Entresto 24/26 mg twice daily (prescribed by [facility]iology) Statin: Atorvastatin 40 mg daily at bedtime (prescribed by [facility]) Pneumococcal vaccine: PPSV23 (02/16/09) Diabetes foot exam: 12/20/24 at [facility] Patient with symptoms of arthritic pain [...] by PCP Diabetes retinal exam: 02/09/24 at [facility] No retinopathy Meibomian Gland Dysfunction OU. Hot compresses for 10 minutes 4 times daily. Monitor. Pterygium OS. Mildly inflammed pterygium, consider Lotemax if irritation worsens. Resolved Problems Problem Noted Date Diagnosed Date Resolved Date Obesity 12/30/2022 12/30/2022 09/28/2024 Chronic systolic heart failu re ([facility]) 11/30/2020 12/30/2022 10/28/2023 Overview (12/30/2022): Dr. Jens Rosas, [facility] cardiology Dr. Jens Rosas, [facility] cardiology Diabetic nephropathy associa tanisha with type 2 diabetes mellitus ([facility]) 11/30/2020 12/30/20222023 Encounters Date Type Department Care Team Description 03/13/2025 Interim Notes [address] [phone] Didier Friend MA 01/27/2025 2:40 PM EDT Office Visit [address] [phone] Reza Britt, PharmD from Last 3 Months Immunizations Immunization Administration Dates Next Due Flu, Preservative Free 10/17/2019 INFLUENZA, SEASONAL, INJECTABLE 05/28/20 17,06/07/2015,04/21/2013,06/07 PNEUMOCOCCAL POLYSACCHARIDE PPV23 (Pneumovax 23) 02/16/2009 TDAP 02/16/2009 Td (adult),2 Lf tetanus toxo id (TDVAX), preservative free 02/26/2023 ZOSTER VACCINE, RECOMBINANT (SHINGRIX) 3 [...] Pressure 110/84 11/09/2024 8:58 AM EDT Pulse 78 01/27/2025 2:55 PM EDT Temperature 36.4 C (97.5 F) 11/09/2024 8:58 AM EDT Respiratory Rate 16 11/09/2024 8:58 AM EDT Oxygen Saturation 97% 01/27/2025 2:55 PM EDT Inhaled Oxygen Concentration - - Weight 58.1 kg (128 lb) 11/09/2024 8:58 AM EDT Height 149.9 cm (4' 11 ) 11/09/2024 8:58 AM EDT Body Mass Index 25.85 11/09/2024 8:58 AM EDT Plan of Treatment Health Maintenance Due Date Last Done Comments Dental Examination 1955 Medicare Annual Wellness Visit 1974 CT Colonography 2001 FIT/gFOBT 2001 Fecal DNA 2001 Flexible Sigmoidoscopy 2001 Imm-Pneumococcal 50+ (2 of 2 - PCV) 02/16/2010 02/16/2009 Bone Density Screening 2021 Imm-Zoster, Recombinant (2 of 2) 04/23/2023 02/26/2023 Urine Albumin Creatinine Ratio Screening 02/27/2024 02/26/2023 Lipid Screening 10/27/2024 10/28/2023, 12/03, 09/30/2021 Hemoglobin A1c 12/19/2024 06/21/2024, 10/02, 12/30/2022, Additional history exists Depression Monitoring 12/28/2024 09/30/2024 , 03/14/2024, 10/09/2023, Additional history exists Retinopathy Screening 02/08/2025 02/09/2024 Imm-Influenza (#1) 2025 10/17/2019, 1 , 06/07/2015, Additional history exists [id number] ( season) 2025 10/29/2020, 09/30/2020 Postponed from 04/03/2024 (Patient postponement) Falls Prevention 05/30/2025 05/30/2024, 02/26/2023 Serum Creatinine [...] Date/Time Associated Diagnosis Comments REFERRAL SCANNED DOCUMENT 02/20/2025 3:00 AM EDT GLUCOSE, BLOOD BY GLUCOSE MONITORING DEVICE (CLIA WAIVED)POCT Routine 01/27/2025 5:12 PM EDT Type 2 diabetes mellitus with stage 3b chronic kidney disease, with long-term current use of insulin ([facility]) REFERRAL TO ORTHOPEDICS Routine 01/23/2025 3:00 AM EDT Right wrist pain Weakness of right arm REFERRAL SCANNED DOCUMENT 01/06/2025 3:00 AM EDT LAB SCANNED DOCUMENT 01/06/2025 3:00 AM EDT REFERRAL TO PODIATRY Routine 12/20/2024 3:00 AM EDT Type 2 diabetes mellitus with stage 3b chronic kidney disease, with long-term current use of insulin ([facility]) COMPREHENSIVE METABOLIC PANEL Routine 06/21/2024 2:31 PM EST Type 2 diabetes mellitus with stage 3b chronic kidney disease, with long-term current use of insulin ([facility]) HGA1C W/EAG Routine 06/21/2024 2:31 PM EST Type 2 diabetes mellitus with stage 3b chronic kidney disease, with long-term current use of insulin ([facility]) REFERRAL FOR MAMMOGRAM Routine 3:00 AM EDT Screening mammogram, encounter for REFERRAL TO DIABETIC RETINAL EXAM Routine 02/09/2024 3:00 AM EDT Type 2 diabetes mellitus with stage 3a chronic kidney disease, with long-term current use of insulin ([facility]) LIPIDS W RFLX TO DIRECT LDL Routine 10/28/2023 10:18 AM EDT Preoperative clearance Type 2 diabetes mellitus with stage 3b chronic kidney disease, with long-term current use of insulin ([facility]) MICROALBUMIN/CREATININ E RATIO, URINE, RANDOM Routine 02/26/2023 2:03 PM EDT Type 2 diabetes mellitus with stage 3b chronic kidney disease, with long-term current use of insulin ([facility]) HEPATITIS C AB W/RFLX HCV RNA, QT, RT PCR Routine 12/30/2022 10:40 AM EDT Encounter to establish care from Last 3 Months or Most Recently Relevant to Health Maintenance Results * REFERRAL SCANNED DOCUMENT (02/20/2025 3:00 AM EDT) Only the most recent of2 resultswithin the time period is included. 02/20/2025 3:00 AM EDT Cordelia Moraes PA-C SCAN REFERRAL Final Result * (ABNORMAL) GLUCOSE, BLOOD BY GLUCOSE MONITORING DEVICE (CLIA WAIVED)POCT Routine (01/27/2025 5:12 PM EDT) GLUCOSE 162(A) 70 - 100 mg/dL [facility] POCT Capillary Blood Blood / Unknown 5:12 PM EDT Reza Britt PharmD LAB - BLOOD DRAW Final Re sult [facility] POCT * REFERRAL TO ORTHOPEDICS (01/23/2025 3:00 AM EDT) 01/23/2025 3:00 AM EDT Cordelia Moraes PA-C REFERRAL Final Result * LAB SCANNED DOCUMENT (01/06/2025 3:00 AM EDT) 01/06/2025 3:00 AM EDT Cordelia Moraes PA-C SCAN LAB Final Result * REFERRAL TO PODIATRY (12/20/2024 3:00 AM EDT) 12/20/2024 3:00 AM EDT Reza Britt PharmD REFERRAL Final Res ult * (ABNORMAL) HGA1C W/EAG (06/21/2024 2:31 PM EST) HEMOGLOBIN A1C 6.3(H) <5.7 % of total Hgb [facility] Comment: For someone without known diabetes, a [...] diabetes for children. EAG (MG/DL) 134 mg/dL [facility] EAG (MMOL/L) 7.4 mmol/L [facility] Blood Blood / Unknown 06/21/2024 2 :31 PM EST 06/21/2024 2:32 PM EST Narrative [facility] - 06/22/2024 12:48 PM EST FASTING:NO Cordelia Moraes PA-C LAB - BLOOD DRAW Final Resul t [facility] [address] [place] [id number], [facility] [address] [place] [phone] * (ABNORMAL) COMPREHENSIVE METABOLIC PANEL (06/21/2024 2:31 PM EST) GLUCOSE 101 65 - 139 mg/dL [facility] Comment: Non-fasting reference interval UREA NITROGEN (BUN) 24 7 - 25 mg/dL [facility] CREATININE (blood) 1.66(H) 0.50 - 1.05 mg/dL [facility] EGFR 33(L) > OR = 60 mL/min/1. 73m2 [facility] BUN/CREATININE RATIO 14 6 - 22 (calc) [facility] SODIUM 134(L) 135 - 146 mmol/L [facility] POTASSIUM 4.4 3.5 - 5.3 mmol/L [facility] CHLORIDE 94(L) 98 - 110 mmol/L [facility] CARBON DIOXIDE 28 20 - 32 mmol/L [facility] CALCIUM 9.6 8.6 - 10.4 mg/dL [facility] PROTEIN, TOTAL 7.6 6.1 - 8.1 g/dL [facility] ALBUMIN 4.3 3.6 - 5.1 g/dL [facility] GLOBULIN 3.3 1.9 - 3.7 g/dL (calc) [facility] ALBUMIN/GLOBULI N RATIO 1.3 1.0 - 2.5 (calc) [facility] BILIRUBIN, TOTAL 0.4 0.2 - 1.2 mg/dL [facility] ALKALINE PHOSPHATASE 79 37 - 153 U/L [facility] AST 14 10 - 35 U/L [facility] ALT 10 6 - 29 U/L [facility] Blood Blood / Unknown 06/21/2024 2 :31 PM EST 06/21/2024 2:32 PM EST Narrative [facility] - 06/22/2024 12:48 PM EST FASTING:NO Cordelia Moraes PA-C LAB - BLOOD DRAW Edited Resu lt - Final [facility] [address] [address], [facility] [address] [phone] * REFERRAL FOR MAMMOGRAM SCREENING (04/27/2024 3:00 [...] AM EDT) CHOLESTEROL, TOTAL 131 <200 mg/dL [facility] HDL CHOLESTEROL 35(L) > OR = 50 mg/dL [facility] TRIGLYCERIDES 158(H) <150 mg/dL [facility] LDL-CHOLESTEROL 72 99 mg/dL (calc) [facility] Comment: Reference range: <100 Desirable range <100 mg/dL for primary prevention; <70 mg/dL for patients with CHD or diabetic patients with > or = 2 CHD risk factors. LDL-C is now calculated using the Len-Muller calculation, which is a validated novel method providing better accuracy than the Friedewald equation in the estimation of LDL-C. Len SS et al. JENNIFER. 2013;310(19): 5514-8549 (http://education.SEC Watch/faq/QWE005) CHOL/HDLC RATIO 3.7 <5.0 (calc) [facility] NON-HDL CHOLESTEROL 96 <130 mg/dL (calc) [facility] Comment: For patients with diabetes plus 1 major ASCVD risk factor, treating to a non-HDL-C goal of <100 mg/dL (LDL-C of <70 mg/dL) is considered a therapeutic option. Blood Blood / Unknown 10/28/2023 1 0:18 AM EDT 10/28/2023 10:18 AM EDT Narrative [facility] - 10/29/2023 9:14 AM EDT FASTING:YES Cordelia Moraes PA-C LAB - BLOOD DRAW Final Resul t [facility] [address] [address], [facility] [address] [phone] * MICROALBUMIN/CREATININE RATIO, URINE, RANDOM (02/26/2023 2:03 PM EDT) Pathologist [facility] CREATININE, RANDOM URINE 37 20 - 275 mg/dL [facility] MICROALBUMIN <0.2 mg/dL [facility] Comment: Reference Range Not established MICROALBUMIN/CREA TININE RATIO, RANDOM URINE NOTE <30 [facility] Comment: NOTE: The urine albumin value is less than 0.2 mg/dL therefore we are unable to calculate excretion and/or creatinine ratio. The ADA defines abnormalities in albumin excretion as follows: Albuminuria Category Result (mcg/mg creatinine) Normal to Mildly increased <30 Moderately increased 30-299 Severely increased > OR = 300 The ADA recommends that at least two of three specimens collected within a 3-6 month period be abnormal before considering a patient to be within a diagnostic category. Urine Urine specimen / Unknown 02/26/2023 2:03 PM EDT 02/26/2023 2:04 PM EDT Richa Atkins NP LAB URINE AMBULATORY Final Resul t [facility] [address] [address], [facility] [address] [phone] * Hep C Antibody with Reflex HCV RNA (12/30/2022 10:40 AM EDT) [facility] HEPATITIS C ANTIBODY NON-REACT OBI NON-REACT OBI [facility] SIGNAL TO CUT-OFF 0.11 <1.00 [facility] Comment: HCV antibody was non-reactive. There is no laboratory evidence of HCV infection. In most cases, no further action is required. However, if recent HCV exposure is suspected, a test for HCV RNA (test code 18471) is suggested. For additional information please refer to http://education.Maestro/faq/WUJ85h1 (This link is being provided for informational/ educational purposes only.) Blood Blood / Unknown 12/30/2022 1 0:40 AM EDT 12/30/2022 10:40 AM EDT Narrative [facility] [employer] - 12/31/2022 7:57 AM EDT FASTING:YES Cordelia Moraes PA-C LAB - BLOOD DRAW Edited Resu lt - Final [facility] [address] [address], [facility] [address] [place] [address] from Last 3 Months or Most Recently Relevant to Health Maintenance Insurance [facility] Care Teams Linux Server Administrator Relationship Specialty Start Date End Date Cordelia Moraes PA-C [address] [place] [address] PCP - General Internal Medicine 09/05/22
--- OUTSIDE RECORDS SUMMARY | 2025-03-21 14:23 | XMS_ITS | Encounter Summary ---
Author Organization [employer] [facility] Address [address] [place] [address] Care Team Providers Care Volunteer Services Manager Name Role Phone Obi Ricketts MD Primary Care Provider Macy Hanks MD Primary Care Prov ider [facility], Pcp Primary Care Provider [facility] Reason for Visit * Reason Onset Date Comments Knee Pain 06/06/2021 Encounter Details Date Type Department Care Team Description 06/06/2021 Telephone Adult Medicine [address] [address] Obi Ricketts MD Knee Pain Social History Tobacco Use Types Packs/Day Years Used Date Smoking Tobacco: Never Smokeless Tobacco: Never Alcohol Use Standard Drinks/Week Comments No 0 (1 standard drink = 0.6 oz pur e alcohol) Sex Assigned at Date Recorded Not on file Job Start Date Occupation Industry Not on file Not on file Not on file COVID-19 Exposure Response Date Recorded In the last month, have you been in contact with someone who was confirmed or suspected to have Coronavirus / COVID-19? No / Unsure 05/22/2021 2:54 PM EDT documented as of this encounter Miscellaneous Notes * Telephone Encounter - Brooke Medrano - 06/06/2021 3:59 PM EDT Call to the patient with byproducts supervisor Maria Dolores # [phone] Bilateral knee pain R>L Since doing an injection with rheumatology, it still has pain and not getting any better Please reach out to the patient and advise * Telephone Encounter - Martita Pacheco - 06/06/2021 1:59 PM EDT Symptoms patient is presenting: the pt is having knee pain since 05/31/2021 For ALL patients calling to schedule any appointment (routine, sick visit, follow up, consult, etc.) in the outpatient setting please ask the following questions: ?? Do you have fever of higher than 101, sore throat with difficulty swallowing or severe shortnessof breath? NO If YES to any of these above symptoms, send a message to triage and do not book. Red dot. If no, an audio or video visit should be booked. ?? Have you had close contact with someone with Coronavirus in the last 14 days? NO ?? Have you traveled abroad? NO ?? Have you traveled recently to another state outside of [place], [place], [place], [place], [place], [place]? NO o If yes, did you quarantine for 14 days or have a negative covid test? NO If yes to any of the above, patient is not to be scheduled in office until after 14 day quarantine or negative covid test. If pain or injury related was it due to an accident at work or from a motor vehicle accident? NO If yes, gather 3rd republican insurance information Date of accident/Injury: How long has patient had these symptoms?: PCP: Obi Ricketts [place] / Plan[place] / Product Type: MEDICARE [id number] documented in this encounter Plan of Treatment Not on file documented as of this encounter Visit Diagnoses Not on filedocumented in this encounter Care Teams Volunteer Services Manager Relationship Specialty Start Date End Date Obi Ricketts MD PCP - General Internal Medicine 01/09/21 03/03/22 Macy Mobley MD [address] [place] [id number] PCP - General Internal Medicine 03/04/22 06/02/23 Community, Pcp [address] [place] [address] PCP - General Internal Medicine 06/03/23 documented as of this encounter
--- OUTSIDE RECORDS SUMMARY | 2025-03-21 14:23 | XMS_ITS | Clinical Summary ---
Author Organization [facility] Address [address] [place] [id number] Phone Care Team Providers Care Optical Element Coater Name Role Phone Unavailable Primary Care Provider Unavailabl e Social History Tobacco Use Types Packs/Day Years Used Date Smoking Tobacco: Never Assessed Education Answer Date Recorded Are you interested in more education? Not on lexy e 02/03/2024 Are you concerned about learning? Not on file 02/03/2024 No 02/03/2024 No 02/03/2024 Digital Access Answer Date Recorded No 02/03/2024 No 02/03/2024 Reliable internet access at home? Not on file 02/03/2024 Device with a working camera? Not on file Comments Unknown Sex and Gender Information Value Date Recorded Sex Assigned at Not on file Legal Sex Female 1:56 PM EDT Gender Identity Not on file Sexual Orientation Not on file Plan of Treatment Not on file Medical Devices Not on file Insurance [facility] MEDICARE REPLACEMENT [place] [id number] MEDICARE REPLACEMENT [facility] MEDICARE REPLACEMENT Additional Source Comments The information contained in this document represents components of the legal health record. It is not the complete legal health record.[facility]
--- OUTSIDE RECORDS SUMMARY | 2025-03-21 14:24 | XMS_ITS | Clinical Summary ---
Author Organization [address] [place] [address] Address [address] [place] [address] Phone Care Team Providers Care Feedlot Manager Name Role Phone Cordelia Moraes Primary Care [...] HFrEF (heart failure with reduced ejection fraction) ([facility] V24, [facility] V28) 08/01/2024 Overview (08/01/2024): Dr. Jens Rosas, [facility] cardiology Dilated cardiomyopathy ([facility] V24, [facility] V28 ) 08/01/2024 Overview (08/01/2024): 05/2017 EF 40% Dr. Jens Rosas -[facility] cardiology. 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 Referred by Josue to Dr Cornel Cutler ([facility]). Latest Cr 06/06/19 1.14, Hgb 10.3 Anemia 01/21/2018 Overview (08/01/2024): Chronic. Latest Hgb 10.3 (06/06/19) Chronic low back pain 01/21/2018 Constipation 01/21/2018 Depression 01/21/2018 Diabetic peripheral neuropathy ([facility] V24, [facility] V28) 01/21/2018 Eczema 01/21/2018 Gout 01/21/2018 Overview (08/01/2024): 2018 Left toe Herpes zoster 01/21/2018 Overview (08/01/2024): 02/2016 ICD (implantable cardioverter-defibrillator) in place 01/21/2018 Overview (08/01/2024): For primary prevention Insomnia 01/21/2018 Plantar fasciitis of left foot 01/21/2018 Type 2 diabetes mellitus wit h neurological manifestations ([facility] V24, [facility] V28) 01/21/2018 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 ([facility] V24, [facility] V28) 08/03/2007 Encounters Date Type Department Care Team Description 12/20/2024 1:15 PM EDT Consult Orthopedic Surgery - [address] [id number] Sea Mata DPM Controlled type 2 diabetes with neuropathy ([facility] V24, [facility] V28) (Primary Dx); Arthritis of both feet; Hammertoes of both feet; PVD (peripheral vascular disease) ([facility] V24); Dermatophytosis, nail from Last 3 Months Immunizations Name Administration Dates Next Due Influenza [...] with atheros clerosis of arteries of extremities ([facility] V24, [facility] V28) 2007 DX:Diabetes type 2 with atherosclerosis of arteries of extremities ([facility]) Fibromyalgia DX:Fibromyalgia Dilated cardiomyopathy ([facility] V24, [facility] V28) DX:Dilated cardiomyopathy ([facility]); COMMENT: 05/2017 EF 40% CHF (congestive heart failur e) ([facility] V24, [facility] V28) DX:CHF (congestive heart cheryl lure) ([facility]) Gout 01/21/2018 DX:Gout; COMMENT : Left toe Depression 01/21/2018 DX:Depression Type 2 diabetes mellitus wit h neurological manifestations ([facility] V24, [facility] V28) 01/21/2018 DX:Type 2 diabetes mellitus with neurological manifestations ([facility]) Diabetic peripheral neuropat hy ([facility] V24, [facility] V28) 01/21/2018 DX:Diabetic peripheral neuro cruz ([facility]) Chronic low back pain 01/21/2018 DX:Chronic low [...] Care Team (Late st Contact Info) Description 03/22/2025 1:00 PM EDT Office Visit Orthopedic Surgery - [place] [address] [facility] [address] [place] [phone] Sea Mata DPM [address] [facility] [address] [place] [address] Health Maintenance Due Date Last Done Comments Breast Cancer Screening 1955 Diabetes: Annual Foot Exam 1966 Diabetes: Annual Retina Eye Exam 1966 Pneumococcal Vaccine: 50+ Years (2 of 2 - PCV) 02/16/2010 02/16/2009 RSV Immunization Adult Patients (1 - Risk 60-74 years 1-dose series) 2016 COVID-19 Vaccine (3 - Moderna risk series) 11/26/2020 10/29/2020, 09/30/2020 Falls Risk Assessment 07/12/2022 Medicare Annual Wellness Visit 07/12/2022 Osteoporosis Screening (Bone Density Screening) 07/12/2022 Social Influencers of Health Screening 07/12/2022 Zoster Vaccines (2 of 2) 04/23/2023 02/26/2023 Diabetes: Annual Urine Albumin-Creatinine Ratio (uACR) 02/27/2024 02/26/2023, 12/03/2018 Depression Screening 08/03/2024 Diabetes: Blood Sugar Control Test (HGBA1C) 12/19/2024 06/21/2024, 04/29/2019 Influenza Vaccine (#1) 2025 , 05/28/2017, 06/07/2015, Additional history exists Diabetes: Annual GFR (Glomerular Filtration Rate) 06/21/2025 06/21/2024, 09/30/2021 Hypertension/CHF/CAD Annual BMP Blood Test 06/21/2025 06/21/2024, 09/30/2021 Colorectal Cancer Screening: Colonoscopy 11/05/2025 11/05/2020 Cholesterol Screening (Lipid Panel) 10/27/2028 10/28/2023, 09/30/2021 DTaP,Tdap,and Td Vaccines (3 - Td or Tdap) 02/26/2033 02/26/2023, 02/16/2009 Hepatitis C Screening Completed 12/30/2022, 018 HIB Vaccines Aged Out No longer eligi [...] 20 months Aged Out No longer eligible based on [...] Results * Annual BMP Blood Test (09/30/2021) Annual BMP Blood Test abstracted Historical Provider MD HEALTH MAINTENANCE Final Result * (ABNORMAL) Lipid panel (09/30/2021) [facility] LDL/HDL Ratio 3 0 - 4 Triglycerides 181(A) 0 - 150 mg/dL Cholesterol 148 0 - 200 mg/dL HDL 45 >=40 mg/dL LDL Cholesterol 68 0 - 100 mg/dL Blood Venous blood specimen / Unknown Result [facility] Provider LAB BLOOD ORDERABLES Dagmar l Result * Colonoscopy (11/05/2020) [facility] Colonoscopy normal, abstracted Anatomical Region Laterality Modality Other Result [facility] Provider HEALTH MAINTENANCE Final Result * Hemoglobin A1c (04/29/2019) [facility] Hemoglobin A1C 6.0 <=6.5 % Blood Venous blood specimen / Unknown Result [facility] Provider LAB BLOOD ORDERABLES Dagmar l Result * Urine Albumin Creatinine Ratio (12/03/2018) [facility] Urine Albumin Creatinine Ratio abstracted Result [facility] Provider HEALTH MAINTENANCE Final Result * Hepatitis C Screening (12/16/2017) [facility] Hepatitis C Screening abstracted Result [facility] Provider HEALTH MAINTENANCE Final Result from Last 3 Months or Most Recently Relevant to Health Maintenance Insurance [facility] MEDICARE Member Subscriber Plan / Payer (Ef fective 2021-Present) Name:Nathan Peoples Relation to Subscriber:Self Name:Nathan Peoples Payer ID:[id number] Group ID:[id number] Type:Not on file Address: [place] [address] [place] [phone] MED[place]ID - [place] Care Teams Feedlot Manager Relationship Specialty Start Date End Date Cordelia Moraes PA [facility] [place] [address] PCP - General 10/17/24
== END 2025-03-21 13:29 | disposition home or self-care (01) ==
LOC: HO.HKA 13:14
PROVIDERS: PCP Physician Assistant; Visit Provider Internal Medicine Hypertension Specialist
DX: N18.30 Chronic kidney disease, stage 3 unspecified (principal); N18.9 Chronic kidney disease, unspecified; I50.9 Heart failure, unspecified
CPT/HCPCS: 99214

== ENCOUNTER → 2025-03-21 13:13 | Outpatient (BNVA) | payer OTHER, SELFPAY | PROVIDERS: PCP Physician Assistant; Visit Provider Internal Medicine Hypertension Specialist | DX: N18.30 Chronic kidney disease, stage 3 unspecified (principal); I50.9 Heart failure, unspecified | CPT/HCPCS: 99212 ==

== ENCOUNTER 2025-04-22 17:46 | Emergency (ER) | payer OTHER, SELFPAY ==
--- NOTE | ~2025-04-22 | XR_ITS ---
CLINICAL HISTORY: pain 1 view abdomen Comparison: None provided Findings: No significant bowel distention demonstrated. No significant increased stool noted. No free air. No abnormal calcification. No acute bony abnormalities. Right upper quadrant surgical clips. Impression: No significant abnormalities. This document has been electronically signed by: Maninder Menard MD on 04/22/2025 22:19:06
--- NOTE | ~2025-04-22 | XR_ITS ---
CLINICAL HISTORY: sob 2 view chest x-ray Comparison: 04/30/2024 Findings: Lungs are clear without acute infiltrates. No pneumothorax. Heart size normal. No acute bony abnormalities. Left defibrillator unchanged. Impression: No acute processes This document has been electronically signed by: Maninder Menard MD on 04/22/2025 19:56:25
[2025-04-22 18:03] VITALS: BP 95/61; PULSE 85; RESP 18; TEMP 36.1; O2SAT 96; BMI 25.1
--- NOTE | 2025-04-22 18:04 | ED.SOB ---
HPI - SOB/Dyspnea General Chief Complaint: Chest Pain Stated Complaint: difficulty breathing/ SOB Time Seen by Provider: 04/22/25 19:07 Source: patient Limitations: language barrier History of Present Illness ED Provider: Gracie Cobos PA-C HPI Narrative: 70-year-old female with a history of hypertension, hyperlipidemia, diabetes, chronic kidney disease, systolic heart failure with the EF of 15-20 percent on echo 04/2024, presents with multiple complaints. Patient complains of chest tightness with inability to breathe through her nose for over a week. Associated nasal congestion. Denies recent cough or cold symptoms or fever. No shortness of breath or wheezing. The patient states she does suffer from seasonal allergies. Patient also complains of epigastric discomfort, described as a burning sensation. Patient states she was given a famotidine, it has not alleviated her symptoms. She denies constipation, abdominal distention, inability to pass flatus, active nausea vomiting. Related Data Home Medications ?Medication ?Instructions ?Recorded ?Confirmed aspirin 81 mg tablet,delayed 81 mg PO DAILY 06/04/20 03/21/25 release cholecalciferol (vitamin D3) 50 50 mcg PO DAILY 06/04/20 03/21/25 mcg (2,000 unit) capsule gabapentin 600 mg tablet 600 mg PO TID 06/04/20 03/21/25 loratadine 10 mg tablet 10 mg PO DAILY PRN Allergy Symptoms 06/04/20 03/21/25 omeprazole 10 mg capsule,delayed 10 mg PO DAILY@0630 06/04/20 03/21/25 release zolpidem 5 mg tablet 5 mg PO BEDTIME PRN Insomnia 06/04/20 03/21/25 apixaban 5 mg tablet (Eliquis) 5 mg PO BID 01/05/23 03/21/25 fluticasone propionate 50 50 mcg intranasal DAILY PRN 01/05/23 03/21/25 mcg/actuation nasal allergies spray,suspension triamcinolone acetonide 0.5 % 1 appl topical BID PRN flares 01/05/23 03/21/25 topical cream insulin glargine 100 unit/mL (3 8 unit subcut BEDTIME 01/31/24 03/21/25 mL) subcutaneous pen (Lantus Solostar U-100 Insulin) multivitamin with folic acid 400 1 tab PO DAILY 01/31/24 03/21/25 mcg tablet (Daily-Mallika (with folic acid)) silver sulfadiazine 1 % topical 1 appl topical DAILY PRN ingrown 01/31/24 03/21/25 cream nail metoprolol succinate 100 mg mg PO DAILY 08/26/24 03/21/25 tablet,extended release 24 hr colchicine 0.6 mg tablet 0.6 mg PO DAILY 01/06/25 03/21/25 empagliflozin 25 mg tablet 25 mg PO DAILY 01/06/25 03/21/25 (Jardiance) Previous Rx's ?Medication ?Instructions ?Recorded lancing device (Adjustable Lancing #1 ea 02/01/21 Device) lancets 28 gauge #200 ea 05/02/21 pen needle, diabetic 32 gauge x #50 ea 01/08/22 (BD Radha 2nd Gen Pen Needle) furosemide 40 mg tablet 40 mg PO BID@0900,1800 #60 tabs 05/04/24 sacubitril 24 mg-valsartan 26 mg 1 tab PO BID #60 tabs 05/04/24 tablet (Entresto) spironolactone 25 mg tablet 25 mg PO BID #60 tabs 05/04/24 atorvastatin 40 mg tablet 40 mg PO DAILY #90 tabs 09/01/24 sucralfate 100 mg/mL oral 10 ml PO QID PRN reflux #300 mL 04/22/25 suspension (Carafate) Allergies Allergy/AdvReac Type Severity Reaction Status Date / Time egg (EGG) Allergy Intermediate RASH Verified 04/22/25 18:06 Fish Containing Products Allergy Intermediate RASH Verified 04/22/25 18:06 oxycodone (OXYCODONE) Allergy Intermediate RASH Verified 04/22/25 18:06 acetaminophen (From PERCOCET) Allergy Unknown RASH/ITCHIN Verified 04/22/25 18:06 G codeine (CODEINE) Allergy Unknown ITCHING Verified 04/22/25 18:06 hydrocodone (From VICODIN) Allergy Unknown UNKNOWN Verified 04/22/25 18:06 lisinopril (LISINOPRIL) Allergy Unknown UNKNOWN Verified 04/22/25 18:06 metoclopramide (From REGLAN) Allergy Unknown UNKNOWN Verified 04/22/25 18:06 naproxen (Naprosyn) Allergy Unknown Unknown Verified 04/22/25 18:06 tramadol Allergy Unknown Unknown Verified 04/22/25 18:06 Review of Systems Review of Systems: Yes all other systems are reviewed and are negative Constitutional: Constitutional: Denies fatigue and Denies fever(s) ENT: Reports nasal congestion Cardiovascular: Cardiovascular: Reports chest pain and Denies dyspnea Respiratory: Respiratory: Denies cough, Denies dyspnea and Denies wheezing Gastrointestinal: Gastrointestinal: Reports abdominal pain, Reports dyspepsia, Reports heartburn, Reports diarrhea, Denies nausea and Denies vomiting Endocrine: Endocrine: Denies fatigue Allergic/Immunologic: Allergic/Immunologic: Denies wheezing PMFSH Past Medical History Attestation statement: The following information was validated with the patient. Medical History Pericardial cyst CHF (congestive heart failure) CHF (congestive heart failure) Hypoglycemia unawareness associated with type 2 diabetes mellitus Vitamin D deficiency Diabetic neuropathy associated with type 2 diabetes mellitus CKD (chronic kidney disease) stage 3, GFR 30-59 ml/min Hypertension Dyslipidemia care home (current) use of insulin Non-toxic multinodular goiter Diabetes type 2, uncontrolled Surgical History Hx of biopsy AICD (automatic cardioverter/defibrillator) present Hx of appendectomy Hx of hysterectomy Family History Family History Father Alcoholism Diabetes Mother Arthritis Hypertension Social History Social History Household Members: None Household Members Other:: Lives by self Housing: Apartment Do you presently have visiting nurse or other home services: Yes Unable to assess alcohol history related to: Unknown Alcohol intake: never Patient Tobacco Use Status: Never used Tobacco e-Cigarette/Vaping Use: Never Used Second Hand Smoke Exposure: No service: No Physical Exam Vital Signs: Vital Signs: Last Vital Signs Temp 97.7 F 04/22/25 23:25 Pulse 72 04/22/25 23:25 Resp 18 04/22/25 23:25 BP 99/66 04/22/25 23:25 Pulse Ox 94 04/22/25 23:25 O2 Del Method Room Air 04/22/25 23:25 BMI result Body Mass Index 25.1 Const: Other: Alert well-appearing Orientation/consciousness: patient oriented x3 Resp: Other: Nonlabored respirations lungs clear to auscultation Cardio: Other: Normal peripheral perfusion no pitting edema GI: Other: Abdomen is soft, nontender no guarding no distention Skin: Other: Warm dry no rash Neuro: General: patient oriented x3, gait normal, no focal motor deficits and CN's II-XI intact bilaterally Psych: Other: Cooperative Course Course Course Narrative: This is an RME: Additional HPI, ROS, PE not included below will be deferred to primary provider. RME assessment and note performed by: Mary Juan PA-C This is a 70 romansh speaking female, with a hx of CKD, CHF, diabetes, who presents to the ER with complaints of abdominal pain, shortness of breath and tight chest pain x 1 week. Reporting shortness of breath started last thursday. Reports that she was having abdominal pain and increased bowel movements which started last week, then started on famotidine which she has been taking without any relief. Plan: Labs, EKG, CXR, viral swabs Medications Administered Discontinued Medications Generic Name Dose Route Start Last Admin Trade Name Freq PRN Reason Stop Dose Admin Sucralfate 1 gm 04/22/25 20:43 04/22/25 21:35 Sucralfate Oral Suspension 1 Gm/10 Ml Oral.Susp PO 04/22/25 20:44 1 gm ONCE ONE Administration Medical Decision Making Medical Decision Making [facility] Narrative: 70-year-old female with a history of hypertension, hyperlipidemia, diabetes, chronic kidney disease, systolic heart failure with the EF of 15-20 percent on echo 04/2024, presents with multiple complaints. Patient complains of chest tightness with inability to breathe through her nose for over a week. Associated nasal congestion. Denies recent cough or cold symptoms or fever. No shortness of breath or wheezing. The patient states she does suffer from seasonal allergies. Patient also complains of epigastric discomfort, described as a burning sensation. Patient states she was given a famotidine, it has not alleviated her symptoms. She denies constipation, abdominal distention, inability to pass flatus, active nausea vomiting. Problem: Risk factors for coronary artery disease, chronic kidney disease, heart failure with the EF of 15-20 percent History: Per patient I have considered the following differential diagnoses: Pneumonia, viral syndrome, ACS, new heart failure, GERD, biliary colic, cholecystitis, pancreatitis, constipation, bowel obstruction, viral gastroenteritis Plan: In regard to the chest pain, ACS was considered, the patient does have numerous risk factors for coronary artery disease, screening labs including troponin EKG and chest x-ray obtained. Also thought about heart failure exacerbation, however she is not volume overloaded on exam, she is not hypoxic, she is not overtly hypertensive. The patient complains of nasal congestion, her chest discomfort to be related to costochondritis secondary to viral syndrome, adding on a viral panel. The patient is having dyspepsia, with the an unremarkable abdominal exam, this is likely her GERD. She does not warrant advanced imaging. Obtaining a KUB, perhaps she is constipated, exacerbating her reflux symptoms. She has no focal right upper quadrant pain to suggest biliary pathology. She has no focal left upper quadrant pain to suggest pancreatitis. She is also not having obstructive symptoms to suggest SBO. I have independently reviewed the following tests: Labs: No leukocytosis, not anemic, no electrolyte abnormality, creatinine at baseline, troponin less than , viral panel negative tested for COVID influenza a and B 2.7 EKG: Sinus rhythm with PVCs, left bundle, left bundle noted on prior study, no new ischemic changes, QTC 481 Chest x-ray Lungs are clear without acute infiltrates. No pneumothorax. Heart size normal. No acute bony abnormalities. Left defibrillator unchanged. Impression: No acute processes KUB: Findings: No significant bowel distention demonstrated. No significant increased stool noted. No free air. No abnormal calcification. No acute bony abnormalities. Right upper quadrant surgical clips. Impression: No significant abnormalities. Differential Diagnosis Differential Diagnoses: The differential diagnosis associated with the presentation includes See medical decision-making Admission/Observation Consideration of admission/observation: Escalation of care including admission/observation considered Not applicable Lab Data MDM Lab Attestation statement: I reviewed the patient's lab results. 04/22/25 18:22 04/22/25 18:22 Labs: Lab Results 04/22/25 04/22/25 04/22/25 Range/Units 18:22 18:26 20:31 WBC 9.4 (4.8-10.8) X10*3/uL RBC 4.87 (4.20-5.50) X10*6/uL Hgb 12.4 (12.0-16.0) g/dl Hct 39.9 (37.0-47.0) % MCV 81.9 (80.0-98.0) fL MCH 25.5 L (27.0-33.0) pg MCHC 31.1 (31.0-35.0) g/dl RDW 14.1 (11.0-16.0) % Plt Count 269 (160-400) X10*3/uL MPV 10.8 (9.4-12.3) fL Immature Gran % (Auto) 0.3 (0.0-0.4) % Neut % (Auto) 60.1 (45-73) % Lymph % (Auto) 27.7 (20-40) % [place] % (Auto) 10.0 (2-11) % Eos % (Auto) 1.0 (0-4) % Baso % (Auto) 0.9 (0-2) % Lymph # (Auto) 2.6 (1.2-4.9) X10*3/uL [place] # (Auto) 0.9 (0.1-1.2) X10*3/uL Eos # (Auto) 0.1 (0.0-0.4) X10*3/uL Baso # (Auto) 0.1 (0.0-0.2) X10*3/uL Abs Immat Gran (auto) 0.03 (0.00-0.03) X10*3/uL Absolute Neuts (auto) 5.7 (2.0-8.3) x10*3/uL Absolute Nucleated RBC 0.000 (0.0-0.012) X10*3/uL Nucleated RBC % (auto) 0.0 (0.0-0.2) /100WBC Sodium 141 (135-145) mmol/L Potassium 3.9 (3.3-5.1) mmol/L Chloride 106 (96-108) mmol/L Carbon Dioxide 26 (22-29) mmol/L Anion Gap 13 (12-20) BUN 21 H (9-16) mg/dL Creatinine 1.48 H (0.5-1.4) mg/dL Estim Creat Clear Calc 27.4 Estimated GFR 35 POC Glucose 94 (60-115) mg/dL Random Glucose 134 H (60-115) mg/dL Calcium 9.1 (8.4-10.2) mg/dL Magnesium 2.1 (1.6-2.6) mg/dL Total Bilirubin 0.5 (0.0-1.0) mg/dL Direct Bilirubin 0.2 (0.0-0.5) mg/dL AST 17 (5-31) U/L ALT 18 (0-31) U/L Alkaline Phosphatase 95 (39-117) U/L Troponin I High Sens < 2.7 (<3.5-17.0) ng/L Total Protein 7.1 (6.5-8.0) g/dL Albumin 4.1 (3.5-5.0) g/dL Lipase 14 (8-78) U/L COVID-19 (LEAH) Negative (Negative) COVID-19 Clin Com See Note Influenza Type A (BRAXTON) Negative (Negative) Influenza Type B (BRAXTON) Negative (Negative) Influenza A & B Note See Note Independent Interpretation I performed an independent interpretation of an: EKG Radiology Impression Discussion of test interpretation with radiology: I have reviewed the radiologist's reading. Discharge Plan Discharge Clinical Impression: GERD (gastroesophageal reflux disease), Seasonal allergies, Atypical chest pain Patient Disposition: Home, Self-Care Instructions: GERD (Gastroesophageal Reflux Disease) (ED), Allergies (ED), Noncardiac Chest Pain (ED) Additional Instructions: All of your screening labs are normal including a cardiac enzyme. There were no concerning changes on your EKG the chest x-ray is clear. The x-ray of your abdomen was normal as well. I do feel your breathing issue is secondary to seasonal allergies. Use your home nasal spray as directed. You can also use [id number] Zyrtec, daily, to help alleviate symptoms. I also feel your acid reflux is exacerbated as well. Use the Carafate as needed for upper abdominal burning. Do not eat 3 hours before bed, eat smaller meals throughout the day instead of 3 large meals. Avoid heavy greasy food, spicy food, acidic food, anything carbonated, alcohol or caffeine. These foods or common triggers for acid reflux. Prescriptions: New sucralfate [Carafate] 100 mg/mL suspension 10 ml PO QID PRN (Reason: reflux) Qty: 300 0RF Rx Instructions: swish in mouth and swallow; use after food/drink No Action (DME) lancing device [Adjustable Lancing Device] Misc See Rx Instructions .ROUTE .MEDSUPPLY Qty: 1 0RF Rx Instructions: 3 times a day (DME) lancets 28 gauge misc See Rx Instructions topical .MEDSUPPLY Qty: 200 3RF Rx Instructions: To test blood glucose 2 times a day (DME) pen needle, diabetic [BD Radha 2nd Gen Pen Needle] 32 gauge x 5/32 needle See Rx Instructions .ROUTE .MEDSUPPLY Qty: 50 6RF Rx Instructions: once a day atorvastatin 40 mg tablet 40 mg PO DAILY Qty: 90 0RF multivitamin with folic acid [Daily-Mallika (with folic acid)] 400 mcg tablet 1 tab PO DAILY silver sulfadiazine 1 % cream 1 appl topical DAILY PRN (Reason: ingrown nail) insulin glargine [Lantus Solostar U-100 Insulin] 100 unit/mL (3 mL) insulin pen 8 unit subcut BEDTIME furosemide 40 mg Tablet 40 mg PO BID@0900,1800 Qty: 60 0RF Protocol: Hold for SBP< HOLD for SBP < : 90 Entresto 24-26 mg Tablet 1 tab PO BID Qty: 60 0RF Protocol: Hold for SBP< HOLD for SBP < : 90 spironolactone 25 mg tablet 25 mg PO BID Qty: 60 0RF zolpidem 5 mg tablet 5 mg PO BEDTIME PRN (Reason: Insomnia) cholecalciferol (vitamin D3) 50 mcg (2,000 unit) capsule 50 mcg PO DAILY omeprazole 10 mg capsule,delayed release(DR/EC) 10 mg PO DAILY@0630 loratadine 10 mg tablet 10 mg PO DAILY PRN (Reason: Allergy Symptoms) aspirin 81 mg tablet,delayed release (DR/EC) 81 mg PO DAILY gabapentin 600 mg tablet 600 mg PO TID triamcinolone acetonide 0.5 % cream 1 appl topical BID PRN (Reason: flares) fluticasone propionate 50 mcg/actuation spray,suspension 50 mcg intranasal DAILY PRN (Reason: allergies) Eliquis 5 mg tablet 5 mg PO BID metoprolol succinate 100 mg tablet extended release 24 hr PO DAILY colchicine 0.6 mg tablet 0.6 mg PO DAILY Jardiance 25 mg tablet 25 mg PO DAILY Interventions: ED Discharge Assessment Last Done: 04/22/25 23:25 Discharge Date/Time: 04/22/25 23:30 Print Language: Israeli
--- NOTE | 2025-04-22 18:09 | ECG_ITS ---
Test Reason : CP Blood Pressure : */* mmHG Vent. Rate : 88 BPM Atrial Rate : 88 BPM P-R Int : 162 ms QRS Dur : 144 ms QT Int : 398 ms P-R-T Axes : 44 -17 180 degrees QTcB Int : 481 ms Sinus rhythm with frequent Premature ventricular complexes and Fusion complexes Left bundle branch block Abnormal ECG When compared with ECG of 30-Apr-2024 14:28, No significant changes seen Referred By: Mary Juan Electronically Signed By: DARCY MELENDEZ
--- OUTSIDE RECORDS SUMMARY | 2025-04-22 18:24 | XMS_ITS | Encounter Summary ---
Author Organization [facility] Address [address] [place] [address] Care Team Providers Care Control Specialist Name Role Phone Macy Mobley MD Primary Care Prov ider Community, Pcp Primary Care Provider Unavailabl e Encounter Details Date Type Department Care Team Description 03/16/2023 SCAN [facility] Medical [facility] [address] [facility] [address] [place] [address] Jennifer Bhandari APRN Social History Tobacco Use Types Packs/Day Years Used Date Smoking Tobacco: Never Smokeless Tobacco: Never Alcohol Use Standard Drinks/Week Comments No 0 (1 standard drink = 0.6 oz pur e alcohol) Sex Assigned at Date Recorded Not on file Job Start Date Occupation Industry Not on file Not on file Not on file COVID-19 Exposure Response Date Recorded In the last 10 days, have yo u been in contact with someone who was confirmed or suspected to have Coronavirus/COVID-19? No / Unsure 03/16/2023 10:40 AM EDT documented as of this encounter Plan of Treatment Not on file documented as of this encounter Visit Diagnoses Not on filedocumented in this encounter Care Teams Control Specialist Relationship Specialty Start Date End Date Macy Mobley MD [address] [place] [id number] PCP - General Internal Medicine 03/04/22 06/02/23 Community, Pcp [address] [place] [address] PCP - General Internal Medicine 06/03/23 documented as of this encounter
--- OUTSIDE RECORDS SUMMARY | 2025-04-22 18:24 | XMS_ITS | Encounter Summary ---
Author Organization [facility] Address [address] [place] [address] Care Team Providers Care Dry Cure Worker Name Role Phone Macy Mobley MD Primary Care Prov ider On License Of [facility], Pcp Primary Care Provider Unavailabl e Encounter Details Date Type Department Care Team Description 05/26/2023 SCAN [facility] [address] [facility] [address] [place] [phone] Ayden Quinones MD [address] [facility] [address] [place] [address] Social History Tobacco Use Types Packs/Day Years [...] suspected to have Coronavirus/COVID-19? No / Unsure 05/25/2023 2:10 PM EDT documented as of this encounter Plan of Treatment Not on file documented as of this encounter Visit Diagnoses Not on filedocumented in this encounter Care Teams Dry Cure Worker Relationship Specialty Start Date End Date Macy Mobley MD [address] [place] [address] [id number] PCP - General Internal Medicine 03/04/22 06/02/23 On License Of [facility], Pcp [address] [place] [id number] PCP - General Internal Medicine 06/03/23 documented as of this encounter
--- OUTSIDE RECORDS SUMMARY | 2025-04-22 18:24 | XMS_ITS | Encounter Summary ---
Author Organization [facility] Address [address] [place] [address] Care Team Providers Care Middleware Systems Architect Name Role Phone Community, Pcp Primary Care Provider Unavailabl e Reason for Visit * Reason Onset Date Comments Surgery (Schedule) 11/09/2023 Encounter Details Date Type Department Care Team Description 11/09/2023 Telephone [facility] [address] [phone] Ayden Quinones MD [address] [address] Surgery (Schedule) Social History Tobacco Use Types Packs/Day Years Used Date Smoking Tobacco: Never Smokeless Tobacco: Never Alcohol Use Standard Drinks/Week Comments No 0 (1 standard drink = 0.6 oz pur e alcohol) Sex Assigned at Date Recorded Not on file Job Start Date Occupation Industry Not on file Not on file Not on file documented as of this encounter Miscellaneous Notes * Telephone Encounter - Ursula Jasso - 11/09/2023 1:44 PM EDT Hello- Patient cancelled sx scheduled 11/12/23. States she is not ready to have surgery. Ursula Bruce documented in this encounter Plan of Treatment Not on file documented as of this encounter Visit Diagnoses Not on filedocumented in this encounter Care Teams Middleware Systems Architect Relationship Specialty Start Date End Date Community, Pcp PCP - General Internal Medicine 06/03/23 documented as of this encounter
--- OUTSIDE RECORDS SUMMARY | 2025-04-22 18:24 | XMS_ITS | Encounter Summary ---
Author Organization [facility] Address [address] [place] [address] Phone Care Team Providers Care Bridge Tender Name Role Phone Catherine Cuellar MD Primary Care Provider [phone] Reason for Visit * Reason Comments Med Refill Encounter Details Date Type Department Care Team (Late st Contact Info) Description 05/08/2022 Refill [facility] [address] [place] [address] Talib Larkin MD Social History [...] on filedocumented in this encounter Care Teams Bridge Tender Relationship Specialty Start Date End Date Catherine Cuellar MD PCP - General 08/13/20 documented as of this encounter
--- OUTSIDE RECORDS SUMMARY | 2025-04-22 18:24 | XMS_ITS | Encounter Summary ---
Author Organization [facility] Address [address] [place] [address] Care Team Providers Care Mission Systems Engineer Name Role Phone Obi Ricketts MD Primary Care Provider Macy Hanks MD Primary Care Prov ider [facility], Pcp Primary Care Provider [facility] Encounter Details Date Type Department Care Team Description 10/04/2021 Incoming Correspondence [facility] Medical [facility] [address] [place] [phone] Tony Carey PA-C Social History Tobacco Use Types Packs/Day Years [...] have Coronavirus / COVID-19? No / Unsure 09/30/2021 12:30 PM EST documented as of this encounter Plan of Treatment Not on file documented as of this encounter Visit Diagnoses Not on filedocumented in this encounter Care Teams Mission Systems Engineer Relationship Specialty Start Date End Date Obi Ricketts MD PCP - General Internal Medicine 01/09/21 03/03/22 Macy Mobley MD [address] [place] [id number] PCP - General Internal Medicine 03/04/22 06/02/23 [facility], Pcp [address] [place] [address] [place] [id number] PCP - General Internal Medicine 06/03/23 documented as of this encounter
--- OUTSIDE RECORDS SUMMARY | 2025-04-22 18:24 | XMS_ITS | Encounter Summary ---
Author Organization [facility] Address [address] [place] [address] Care Team Providers Care Laboratory Secretary Name Role Phone Macy Mobley MD Primary Care Prov ider [facility], Pcp Primary Care Provider Unavailabl e Reason for Visit * Reason Onset Date Comments other 03/20/2023 Encounter Details Date Type Department Care Team Description 03/20/2023 [facility] [address] [place] [address] [place] [phone] Jennifer Bhandari APRN other Social History Tobacco Use Types Packs/Day Years [...] AM EDT documented as of this encounter Miscellaneous Notes * Telephone Encounter - Ivy Berger - 03/23/2023 12:12 PM EDT Called ins and was transferred to spa receptionist. Left spa receptionist vm asking for a call back. * Telephone Encounter - Tennille Maria Corin - 03/20/2023 3:44 PM EDT Received call from patient's insurance, [facility] requesting a call back [phone]. They have Auths they need to close out and need dates. Thanks. documented in this encounter Plan of Treatment Not on file documented as of this encounter Visit Diagnoses Not on filedocumented in this encounter Care Teams Laboratory Secretary Relationship Specialty Start Date End Date Macy Mobley MD [address] [place] [phone] PCP - General Internal Medicine 03/04/22 06/02/23 [facility], Pcp [address] [place] [id number] PCP - General Internal Medicine 06/03/23 documented as of this encounter
--- OUTSIDE RECORDS SUMMARY | 2025-04-22 18:24 | XMS_ITS | Encounter Summary ---
Author Organization [facility] Address [address] [place] [address] Care Team Providers Care Medical Insurance Collector Name Role Phone Catherine Cuellar MD Primary Care Provider Obi Whitfield MD Primary Care Provider Macy Hanks MD Primary Care Prov ider [facility], Pcp Primary Care Provider Unavailabl e Reason for Visit * Reason Onset Date Comments PT-1 08/30/2019 Encounter Details Date Type Department Care Team Description 08/30/2019 Telephone Adult Medicine [address] [address] Catherine Cuellar MD PT-1 Social History Tobacco Use Types Packs/Day Years [...] encounter Miscellaneous Notes * Telephone Encounter - Dee Dee Mendez M.A. 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 [employer] new provider or submitter number is [id number] Verify and document patients [place] insurance ID # (NOT [facility] ID): [id number] Payor: [employer] FFS / Plan: [employer] / Product Type: MEDICAID RISK Patient mailing address: [address] [facility] [address] Telephone Information: Pt. demographics verified? YES If not accurate, update registration. Is this a NEW request or a RENEWAL? NEW Name of treating facility: [facility] Name (first & last) of treating provider? required : Geovanna Koch What is the medical reason why the patient is seeing the above provider? Diabetes follow up Address/Zip code for treating provider: [address] [place] [address] Phone # for treating provider: [phone] Is the provider in the [facility] network (do they accept [place] Health insurance)? YES What specialtly is this provider? Endocrinology When is the visit scheduled for? 09/07/19 at 12:30 How often you will be seeing this particular provider? Once every 3 months Do you have friends or family who can transport you to this visit? NO If yes, do not complete request. Is there anything stopping you from using public transportation? If yes, explain. : YES Is there a medical reason (diagnosis) why you are unable to use public transportation? If yes, explain: yes - patient does not like to go out by herself Is this is for an Adult Day Program or Suboxone clinic no If yes to above what is arrival time and what is departure time If yes to above how many days a week? Do you need a wheelchair van? NO If you use a wheelchair what is the height, width & length of the wheelchair? Do you need an escort to accompany you? If yes, explain why. NO Will you have an alternative pick-up address? YES, [address], [place] [address] Do you have a service animal? NO PT DOES NOT NEED RELEASE OF INFORMATION SIGNED documented in this encounter Plan of Treatment Not on file documented as of this encounter Visit Diagnoses Not on filedocumented in this encounter Care Teams Medical Insurance Collector Relationship Specialty Start Date End Date Catherine Cuellar MD PCP - General Internal Medicine 10/01/17 01/08/21 Obi Ricketts MD PCP - General Internal Medicine 01/09/21 03/03/22 Macy Mobley MD [address] [place] [address] PCP - General Internal Medicine 03/04/22 06/02/[address] [address] PCP - General Internal Medicine 06/03/23 documented as of this encounter
--- OUTSIDE RECORDS SUMMARY | 2025-04-22 18:24 | XMS_ITS | Encounter Summary ---
Author Organization [facility] Address [address] [place] [address] Care Team Providers Care Spooling Operator Name Role Phone Obi Ricketts MD Primary Care Provider Macy Hanks MD Primary Care Prov ider [facility], Pcp Primary Care Provider Unavailabl e Reason for Visit * Reason Comments E-prescribe Rx Request Encounter Details Date Type Department Care Team Description 03/02/2021 Refill Adult Medicine [address] [address] Catherine Cuellar MD E-prescribe Rx Request Social History Tobacco Use Types Packs/Day Years [...] have Coronavirus / COVID-19? No / Unsure 02/08/2021 1:23 PM EDT documented as of this encounter Miscellaneous Notes * Telephone Encounter - Ashley Ashton M.A. - 03/04/2021 12:02 PM EDT JOCELYN 12/04/2020 F/U appt 03/18/2021 Lab Results Component Value Date NA 139 08/11/2019 K 3.6 08/11/2019 CO2 31 08/11/2019 CL 103 08/11/2019 BUN 14 08/11/2019 CREAT 0.99 05/17/2020 GLU 114 12/14/2020 CA 9.0 08/11/2019 GFR 56 05/17/2020 * Telephone Encounter - Destinee Sharp - 03/04/2021 11:34 AM EDT Patient would like script to be: E-PRESCRIBED/FAXED TO PHARMACY WHEN WAS THE PATIENT'S LAST APPOINTMENT IN ADULT MEDICINE? 12/04/20 WHEN WAS THE LAST TIME THE PATIENT SAW THEIR PCP? 07/16/18 Does patient have an upcoming appointment? Yes 03/18/21 (THE MEDICATION REQUESTED IS ON THE MED LIST ABOVE) All of the medications requested were on the CURRENT MEDS list Did you check the Pharmacy information above?: YES Patient wants: 90 -day supply Is this a mail order prescription request ? NO If the refill is from a FAXED refill request what is the RX # listed on the fax? N/A Patients current insurance carrier is: Payor: [employer] FFS / Plan: [employer] / Product Type: MEDICAID RISK documented in this encounter Plan of Treatment Not on file documented as of this encounter Visit Diagnoses Not on filedocumented in this encounter Care Teams Spooling Operator Relationship Specialty Start Date End Date Obi Ricketts MD PCP - General Internal Medicine 01/09/21 03/03/22 Raoul Rodríguez, Macy Dailey MD [address] [place] [address] PCP - General Internal Medicine 03/04/22 06/02/23 [facility], Pcp [address] [place] [address] PCP - General Internal Medicine 06/03/23 documented as of this encounter
--- OUTSIDE RECORDS SUMMARY | 2025-04-22 18:24 | XMS_ITS | Encounter Summary ---
Author Organization [facility] Address [address] [place] [address] Care Team Providers Care Pollution Control Technician Name Role Phone Catherine Cuellar MD Primary Care Provider Obi Whitfield MD Primary Care Provider Macy Hanks MD Primary [facility] Prov [facility] Encounter Details Date Type Department Care Team Description 07/29/2018 Special Education Resource Room Teacher Report Medical Records [address] [place] [id number] [address] Social History Tobacco Use Types Packs/Day Years [...] on filedocumented in this encounter Care Teams Pollution Control Technician Relationship Specialty Start Date End Date Catherine Cuellar MD PCP - General Internal Medicine 10/01/17 01/08/21 Obi Ricketts MD PCP - General Internal Medicine 01/09/21 03/03/22 Macy Mobley MD [address] [place] [address] PCP - General Internal Medicine 03/04/22 06/02/23 [facility], Pcp [address] [place] [address] PCP - General Internal Medicine 06/03/23 documented as of this encounter
--- OUTSIDE RECORDS SUMMARY | 2025-04-22 18:24 | XMS_ITS | Encounter Summary ---
Author Organization [facility] Address [address] [place] [address] Care Team Providers Care Chef Assistant Name Role Phone [facility], Pcp Primary Care Provider Unavailabl e Encounter Details Date Type Department Care Team Description 09/23/2023 Old Records [facility] [address] [phone] Aron Johnson DPM [address] [address] Social History Tobacco Use Types Packs/Day Years [...] on filedocumented in this encounter Care Teams Chef Assistant Relationship Specialty Start Date End Date [facility], Pcp PCP - General Internal Medicine 06/03/23 documented as of this encounter
--- OUTSIDE RECORDS SUMMARY | 2025-04-22 18:24 | XMS_ITS | Encounter Summary ---
Author Organization [employer] [facility] Address [address] [place] [address] Care Team Providers Care Audiovisual Production Specialist Name Role Phone Macy Mobley MD Primary [facility] Prov ider [facility] Primary Care Provider Unavailabl e Reason for Visit * Reason Onset Date Comments refill request 08/07/2022 Encounter Details Date Type Department Care Team Description 08/07/2022 Refill Adult Medicine [address] [address] Macy Mobley MD [address] [place] [address] refill request Social History Tobacco Use Types Packs/Day Years [...] encounter Miscellaneous Notes * Telephone Encounter - Kia Alvarez M.A. - 08/07/2022 12:22 PM EST Please refuse, noted on 07/31/22 refill encounter you will not refill. Patient was not advised at that time however a voicemail was left today by Lisa in Faroese of yourprevious denial message and referral to for sleep. * Telephone Encounter - Estella Peoples - 08/07/2022 12:03 PM EST Patient states she out of the medication please advise. Patient would like script to be: E-PRESCRIBED/FAXED TO PHARMACY WHEN WAS THE PATIENT'S LAST APPOINTMENT IN ADULT MEDICINE? WHEN WAS THE LAST TIME THE PATIENT SAW THEIR PCP? 04/01/22 Does patient have an upcoming appointment? Yes 10/02/22 (THE MEDICATION REQUESTED IS ON THE MED LIST ABOVE) All of the medications requested were on the CURRENT MEDS list Did you check the Pharmacy information above?: YES Patient wants: 30 -day supply Is this a mail order prescription request ? NO If the refill is from a FAXED refill request what is the RX # listed on the fax? N/A Patients current insurance carrier is: Payor: [facility]CR / Plan: O $0 [facility] [id number] / Product Type: HMO [id number] documented in this encounter Plan of Treatment Not on file documented as of this encounter Visit Diagnoses Not on filedocumented in this encounter Care Teams Audiovisual Production Specialist Relationship Specialty Start Date End Date Macy Mobley MD [address] [place] [address] PCP - General Internal Medicine 03/04/22 06/02/[address] [address] PCP - General Internal Medicine 06/03/23 documented as of this encounter
--- OUTSIDE RECORDS SUMMARY | 2025-04-22 18:24 | XMS_ITS | Encounter Summary ---
Author Organization [facility] Address [address] [place] [address] Care Team Providers Care Student Support Services Director Name Role Phone Catherine Cuellar MD Primary Care Provider Obi Whitfield MD Primary Care Provider Macy Hanks MD Primary Care Prov ider [facility] Pcp Primary Care Provider Unavailabl e Reason for Visit * Reason Onset Date Comments refill request 09/29/2018 Encounter Details Date Type Department Care Team Description 09/29/2018 Refill Adult Medicine [address] [address] Catherine Cuellar MD refill request Social History Tobacco Use Types [...] encounter Miscellaneous Notes * Telephone Encounter - Eloisa Delgadillo M.A. - 09/29/2018 2:33 PM EST No results found for: NA, K, CO2, CL, BUN, CREAT, GLU, CA, GFR Pending ov with pcp 11/01/18 * Telephone Encounter - Amy Monzon - 09/29/2018 1:59 PM EST Patient would like script to be: E-PRESCRIBED/FAXED TO PHARMACY ?? WHEN WAS THE PATIENT'S LAST APPOINTMENT IN ADULT MEDICINE? 07/16/18 ?? WHEN WAS THE LAST TIME THE PATIENT SAW THEIR PCP? 01/28/18 ?? Does patient have an upcoming appointment? Yes 11/01/18 ?? (THE MEDICATION REQUESTED IS ON THE MED LIST ABOVE) All of the medications requested were on the CURRENT MEDS list ?? Did you check the Pharmacy information above?: YES ?? Patient wants: 30 -day supply ?? Is this a mail order prescription request ? NO ?? If the refill is from a FAXED refill request what is the RX # listed on the fax? N/A ?? Patients current insurance carrier is: [facility] / Plan: [facility] / Product Type: MEDICAID RISK ? documented in this encounter Plan of Treatment Not on file documented as of this encounter Visit Diagnoses Not on filedocumented in this encounter Care Teams Student Support Services Director Relationship Specialty Start Date End Date Catherine Cuellar MD PCP - General Internal Medicine 10/01/17 01/08/21 Obi Ricketts MD PCP - General Internal Medicine 01/09/21 03/03/22 Macy Mobley MD [address] [place] [address] PCP - General Internal Medicine 03/04/22 06/02/[address] [address] PCP - General Internal Medicine 06/03/23 documented as of this encounter
--- OUTSIDE RECORDS SUMMARY | 2025-04-22 18:24 | XMS_ITS | Encounter Summary ---
Author Organization [facility] Address [address] [place] [address] Care Team Providers Care Applications Architect Name Role Phone Obi Ricketts MD Primary Care Provider Macy Hanks MD Primary [facility] Prov ider [facility] Primary Care Provider Unavailabl e Reason for Visit * Reason Onset Date Comments refill request 06/04/2021 Encounter Details Date Type Department Care Team Description 06/04/2021 Refill Adult Medicine [address] [address] Obi Ricketts MD refill request Social History Tobacco Use [...] encounter Miscellaneous Notes * Telephone Encounter - Celeste Chen - 06/04/2021 9:36 AM EDT Patient would like script to be: E-PRESCRIBED/FAXED TO PHARMACY WHEN WAS THE PATIENT'S LAST APPOINTMENT IN ADULT MEDICINE? 03/18/21 WHEN WAS THE LAST TIME THE PATIENT SAW THEIR PCP? New to pcp Does patient have an upcoming appointment? Yes 09/30/21 (THE MEDICATION REQUESTED IS ON THE MED [...] N/A Patients current insurance carrier is: Payor: [employer] / [place] / Product Type: MEDICARE [id number] documented in this encounter Plan of Treatment Not on file documented as of this encounter Visit Diagnoses Not on filedocumented in this encounter Care Teams Applications Architect Relationship Specialty Start Date End Date Obi Ricketts MD PCP - General Internal Medicine 01/09/21 03/03/22 Macy Mobley MD [address] [place] [address] PCP - General Internal Medicine 03/04/22 06/02/[address] [address] PCP - General Internal Medicine 06/03/23 documented as of this encounter
--- OUTSIDE RECORDS SUMMARY | 2025-04-22 18:24 | XMS_ITS | Clinical Summary ---
Author Organization [employer] Address [address] [facility] [address] [place] [address] Care Team Providers Care Ax Survey Worker Name Role Phone Unavailable Primary Care Provider Unavailabl e Allergies Active Allergy Reactions Criticality Noted Date Comments Acetaminophen 08/25/2013 Other Reaction(s): Unknown Codeine Hives,Other High 08/25/2013 Other Reaction(s): itching, Not available, Rash All pain killers Itching All pain killers Itching Dapagliflozin 03/24/2025 rash, itching Diphenhydramine Hives 08/18/2022 Diphenhydramine Hcl 08/18/2022 Other Reaction(s): Hives/Urticaria Gramineae Pollens Itching 09/05/2021 Other Reaction(s): Itchy Grass Pollen(K-O-R-T-Swt Derrick) 03/24/2025 Other Reaction(s): Not available Hydrocodone 05/17/2015 Hydrocodone-Acetaminoph en Hives,Other High 12/03/2020 Iodinated Contrast Media 01/17/2020 Iodinated contrast contraindicated if possible. CKD Lisinopril Cough,Hives,Other High 05/17/2015 Other Reaction(s): Not available Metoclopramide Hives,Other High 05/17/2015 Other Reaction(s): Not available No reaction documented. No reaction documented. Naproxen Hives,Other High 05/17/2015 Other Reaction(s): Not available Nsaids 09/24/2021 Due to renal issues Oxycodone 08/25/2013 Other Reaction(s): Unknown Oxycodone-Acetaminophen Hives,Other High 01/28/2018 Other Reaction(s): SWELLING/RASH Pollen Extract Itching,Hives High 09/05/2021 Tramadol Hives,Unknown High 12/30/2022 Medications amoxicillin (Amoxil) 500 MG capsule Take 4 capsules of amoxicillin 500 mg 1 hour prior dental procedure 12 capsule 5 Active acetaminophen (Tylenol) 500 MG tablet Take 500 mg by mouth every 6 (six) hours if needed. 2 Active aspirin 81 MG EC tablet TOME 1 TABLETA POR V A ORAL TODOS LOS D 8 Active albuterol 108 (90 Base) MCG/ACT inhaler TOME DOS INHALACIONES CADA 4-6 HORAS CUANDO SEA NECESARIO PARA LA FALTA DE RESPIRACI N OR WHEEZING 1 Active atorvastatin (Lipitor) 40 MG tablet TOME 1 TABLETA POR VIA ORAL TODOS LOS SANABRI[place] 5 Active cholecalciferol (Vitamin D-3) 50 MCG (2000 UT) capsule TOME 1 C PSULA POR V A ORAL TODOS LOS D 2 Active colchicine 0.6 MG tablet TAKE 2 TABLETS BY MOUTH FIRST DAY AND THEN ONE TABLET DAILY AFTER. 5 Active Jardiance 10 MG TAKE 1 TABLET BY MOUTH EVERY MORNING STOP TRADJENTA 5 MG 4 Active Entresto 24-26 MG tablet TOME 1 TABLETA POR VIA ORAL DOS VECES AL ANANTH 5 Active fluticasone (Flonase) 50 MCG/ACT nasal spray ROCIAR 1 VEZ EN CADA VENTANILLA DE LA NARIZ DIARIO CUANDO SEA NECESARIO FOR RHINITIS OR ALLERGIES 7 Active Continuous Glucose Freight Coordinator (FreeStyle Clif 3 [place]) device USE TO TEST BLOOD GLUCOSE CONTINUOUSLY. (FREESTYLE CLIF 3 READER) 4 Active Continuous Glucose Sensor (FreeStyle Clif 3 Plus Sensor) [facility] [address] 1 SENSOR TO BACK OF UPPER ARM EVERY 15 DAYS. USE TO MONITOR BLOOD SUGAR CONTINUOUSLY 5 Active furosemide (Lasix) 20 MG tablet PLEASE SEE ATTACHED FOR DETAILED DIRECTIONS 4 Active gabapentin (Neurontin) 600 MG tablet TOME MONA TABLETA ALISTAIR VECES AL D A Active FreeStyle lancets Use to test blood glucose three times daily. (Freestyle Lancets) 4 Active loratadine (Claritin) 10 MG tablet TOME 1 TABLETA POR VIA ORAL TODOS LOS [place]NA[place] CUANDO SEA NECESARIO FOR ALLERGIES 1 Active metoprolol succinate XL (Toprol-XL) 100 MG 24 hr tablet TOME 1 TABLETA POR V A ORAL TODOS LOS D 4 Active omeprazole (PriLOSEC) [address] capsule TOME MONA CAPSULA TODOS LOS SANABRIA EN LA MANANA ANTES DEL DESAYUNO 1 Active spironolactone (Aldactone) 25 MG tablet TOME 1 TABLETA POR V A ORAL TODOS LOS D 4 Active tiZANidine (Zanaflex) 4 MG tablet Take 4 mg by mouth every 8 (eight) hours if needed for muscle spasms. 5 Active triamcinolone (Kenalog) 0.5 % cream APPLY TO AFFECTED AREA TWICE DAILY FOR 2 WEEKS. THEN ON AND OFF NEEDED FOR FLARES. 8 Active zolpidem (Ambien) 10 MG tablet Take 1 tablet by mouth Once per day. Active Active Problems Problem Noted Date Diagnosed Date Anemia of chronic disease 03/24/2025 Heart failure 03/24/2025 Status post appendectomy, follow-up exam 025 History of colonoscopy 03/24/2025 Overview (03/24/2025): 02/14 with a 3-mm polyp in cecum. Status post cholecystectomy 03/24/2025 Hypertriglyceridemia 03/24/2025 Hypotension 03/24/2025 LBBB (left bundle branch block) 03/24/2025 Obesity 03/24/2025 Paroxysmal atrial fibrillation 03/24/2025 PVCs (premature ventricular contractions) 2024 Status post hysterectomy 03/24/2025 Carpal tunnel syndrome of right wrist 09/30/2024 Degenerative tear of medial meniscus of right kn ee 10/11/2023 Cardiac pacemaker 12/30/2022 Overview (03/24/2025): 06/14/24 at [facility] ~Labs today ~Refer back to [...] messaged for pt's arm MRI 05/12/24 at [facility] ~24-Holter monitor to assess PVC burden 04/08/24 at [facility] ~Reduce Lasix to 20 mg as needed weight gain greater than 3 pounds / 1-2 days, increased leg swelling, increased shortness of breath ~Stop carvedilol 12.5 mg twice daily and start metoprolol XL 100 mg daily ~Pt encouraged to hydrate in the range of 8 glasses fluid daily ~Repeat Sleep study in-lab ~Message to Device to assess PVC burden 03/04/24 at [facility] Plan: - increase entresto to 97-103mg BID - pt will monitor wt at home and repeat labs in a week, if wt has not improved would double lasix dose for 3-4 days - f/u in 1 months - would repeat ekg and if QRS wide with LBBB pattern ask EP if we need to upgrade to INDUSTRIAL SAFETY ENGINEER given low EF and recent admission with decrease in GDMT 08/25/23 at [facility] Shared Clinical Summary 1. Heart [...] in 6 months Chronic abdominal pain 12/30/2022 Heart failure with reduced e jection fraction, NYHA class III 12/30/2022 Overview (03/24/2025): 10/04/24 at [facility] No medication changes Refer to EP for consult on PVC ablation Encouraged to try to hydrate with at least 64 oz fluid daily Repeat labs including follow up for iron infusion 08/01/24 at [facility] NYHA class III stage C - [...] exercise test for risk stratification 06/14/24 at [facility] Labs today Refer back to EP [...] messaged for pt's arm MRI 05/12/24 at [facility] 24-Holter monitor to assess PVC burden 04/08/24 at [facility] Reduce Lasix to 20 mg as needed weight gain greater than 3 pounds / 1-2 days, increased leg swelling, increased shortness of breath Stop carvedilol 12.5 mg twice daily and start metoprolol XL 100 mg daily Pt encouraged to hydrate in the range of 8 glasses fluid daily Repeat Sleep study in-lab Message to Device to assess PVC burden 03/04/24 at [facility]: increase entresto to 97-103mg BID Pt will monitor wt at home and repeat labs in a week, if wt has not improved would double lasix dose for 3-4 days F/u in 1 months - would repeat ekg and if QRS wide with LBBB pattern ask EP if we need to upgrade to INDUSTRIAL SAFETY ENGINEER given low EF and recent admission with decrease in GDMT 08/25/23 at [facility] Shared Clinical Summary 1. Heart [...] home nondiagnostic - f/u in 6 months History of appendectomy 12/30/2022 History of lobectomy of thyroid 12/30/2022 Overview (03/24/2025): Post op right lobectomy DOS 11/10/22 at [facility]. Hx of cholecystectomy 12/30/2022 Migraine 12/30/2022 Mild vaginal dysplasia 12/30/2022 Polyp of colon 12/30/2022 Overview (03/24/2025): 02/14 Anemia of chronic renal failure 11/30/2020 Fibromyalgia 11/30/2020 Chronic systolic heart failure 11/30/2020 Overview (03/24/2025): Dr. Jens Rosas, [facility] cardiology Diabetic nephropathy associa tanisha with type 2 diabetes mellitus 11/30/2020 Dilated cardiomyopathy 11/30/2020 Overview (03/24/2025): 10/04/24 at [facility] No medication changes Refer to EP for consult on PVC ablation Encouraged to try to hydrate with at least 64 oz fluid daily Repeat labs including follow up for iron infusion 08/01/24 at [facility] NYHA class III stage C - [...] exercise test for risk stratification 06/14/24 at [facility] Labs today Refer back to EP [...] messaged for pt's arm MRI 05/12/24 at [facility] 24-Holter monitor to assess PVC burden 04/08/24 at [facility] Reduce Lasix to 20 mg as needed weight gain greater than 3 pounds / 1-2 days, increased leg swelling, increased shortness of breath Stop carvedilol 12.5 mg twice daily and start metoprolol XL 100 mg daily Pt encouraged to hydrate in the range of 8 glasses fluid daily Repeat Sleep study in-lab Message to Device to assess PVC burden 03/04/24 at [facility] Plan: increase entresto to 97-103mg BID Pt will monitor wt at home and repeat labs in a week, if wt has not improved would double lasix dose for 3-4 days F/u in 1 months - would repeat ekg and if QRS wide with LBBB pattern ask EP if we need to upgrade to INDUSTRIAL SAFETY ENGINEER given low EF and recent admission with decrease in GDMT 08/25/23 at [facility] Shared Clinical Summary 1. Heart [...] f/u in 6 months Ectopic kidney 11/30/2020 Essential hypertension 11/30/2020 Gastroesophageal reflux disease 11/30/2020 Hypercholesterolemia 11/30/2020 Hyperlipidemia LDL goal <100 11/30/2020 Proteinuria 11/30/2020 Knee pain 05/03/2019 Stage 3 chronic kidney disea se due to type 2 diabetes mellitus 08/17/2018 Overview (03/24/2025): 01/06/25 [facility] CKD III, renal function back to baseline, appears euvolemic, continue current dose of diuretics, low-sodium diet, continue current medications including SGLT-2 inhibitor A1c <7% On allopurinol, does not want take prednisone Asymptomatic hypotension, secondary to meds 08/26/24 at [facility] CKDIII - renal function back to baseline. Serum creatinine 1.28. continue current dose of diuretics. DM - continue SGLT-2 inhibitor, no changes made, maintain A1c <7%, avoid NSAIDs Gout - on allopurinol - does not want to take prednisone, encouraged to follow- up with rheumatology. 04/25/24 at [facility] - Dr. Omayra Chapin Echocardiogram showed severely dilated left ventricle with severe global hypokinesis Renal function back to baseline. Serum creatinine 1.28. LALO has resolved, continue current dose of diuretics Continue current medications including SGLT-2 inhibitors and no changes made. Maintain A1c <7%, avoid nephrotoxic agents including NSAIDs. Cr 2.0 on 07/29/18 - outside labs by Josue. Referred by Josue to Dr Cornel Cutler ([facility]). Latest Cr 06/06/19 1.14, Hgb 10.3 Anemia 01/21/2018 Overview (03/24/2025): Chronic. 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 01/21/2018 Eczema 01/21/2018 Gout 01/21/2018 Overview (03/24/2025): 2017 Left toe Herpes zoster 01/21/2018 Overview (03/24/2025): 02/2016 Implantable cardioverter-defibrillator (ICD) in situ 01/21/2018 Overview (03/24/2025): For primary prevention Insomnia 01/21/2018 Plantar fasciitis of left foot 01/21/2018 Gastritis 05/24/2010 Memory impairment 05/24/2010 Low back pain radiating to left leg 01/29/2009 Prurigo nodularis 01/29/2009 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 08/03/2007 Type 2 diabetes mellitus wit h stage 3b chronic kidney disease, with long-term current use of insulin 08/03/2007 Overview (03/24/2025): DM dx: ~[id number] per patient reports Glucometer: Viagogostyle Clif 3 Plus Current Diabetes RX: Jardiance 25 mg daily every morning (CKD/HF) MARCO-I/ARB: Entresto 24/26 mg twice daily (prescribed by [facility]) Statin: Atorvastatin 40 mg daily at bedtime (prescribed by [facility]) Pneumococcal vaccine: PPSV23 (02/16/09) Diabetes foot exam: 12/20/24 at [facility] Patient with symptoms of arthritic pain [...] by PCP Diabetes retinal exam: 02/09/24 at [facility] No retinopathy Meibomian Gland Dysfunction OU. Hot compresses for 10 minutes 4 times daily. Monitor. Pterygium OS. Mildly inflammed pterygium, consider Lotemax if irritation worsens. Type 2 diabetes mellitus 08/03/2007 Encounters Date Type Department Care Team Description 03/29/2025 11:00 AM EDT Office Visit [facility] [address] [place] [address] Jony Cardenas DDS 03/24/2025 11:00 AM EDT Office Visit [facility] [address] [place] [address] Shanti Landis DDS Encounter for dental examination (Primary Dx); Dental caries; Dental calculus; Gingival recession, generalized from Last 3 Months Social History Tobacco Use Types Packs/Day Years Used Date Smoking Tobacco: Never Smokeless Tobacco: Never Tobacco Cessation:Counseling Given: Not Answered Comments Unknown Sex and Gender Information Value Date Recorded Sex Assigned at Female 06/02/2022 10:16 AM EDT Legal Sex Female 10:16 AM EDT Gender Identity Female 06/02/2022 10:16 AM EDT Sexual Orientation Straight 06/02/2022 10 :16 AM EDT Last Filed Vital Signs Vital Sign Reading Time Taken Comments Blood Pressure 128/72 03/29/2025 11:12 AM EDT Pulse - - Temperature - - Respiratory Rate - - Oxygen Saturation - - Inhaled Oxygen Concentration - - Weight - - Height - - Body Mass Index - - Plan of Treatment Upcoming Encounters Date Type Department Care Team (Late st Contact Info) Description 05/16/2025 10:30 AM EDT Office Visit [facility] [address] [place] [address] Shanti Landis DDS [address] [place] [address] 05/29/2025 2:15 PM EDT Office Visit [facility] [address] [place] [address] Ayah Lewis Health Maintenance Due Date Last Done Comments CT Colonography 1956 Colonoscopy 1956 Colorectal Cancer Screening 1956 Depression Screening 1956 FIT DNA/Cologuard 1956 FIT 1956 FOBT 1956 Lipid Panel 1956 SDOH Screening 1956 Sigmoidoscopy 1956 Diabetes: Foot Exam 1966 Eye Exam 1966 Alcohol/Substance Use Screening 1968 Hepatitis C Screening 1974 Mammogram 1996 Pneumococcal Vaccine: 50+ Years (2 of 2 - PCV) 02/16/2010 02/16/2009 RSV Patients and Patients Aged 60 years or older (1 - Risk 60-74 years 1-dose series) 2016 Diabetes: Hemoglobin A1C 07/29/2019 04/29/2019 Dental Prophylaxis 12/08/2019 06/08/2019, 0 12/01/2018, 05/27/2018, Additional history exists Zoster Vaccines (2 of 2) 04/23/2023 02/26/2023 COVID-19 Vaccine (3 - 2024- season) 2025 10/29/2020, 09/30/2020 Influenza Vaccine (#1) 2025 , 05/28/2017, 05/28/2017, Additional history exists Dental Oral Exam 09/25/2025 03/24/2025, 01/2019, 05/27/2018, Additional history exists Dental X-Ray: Bitewings 03/25/2026 03/24/20, 05/27/2018, 04/09/2017, Additional history exists Tobacco Screening 03/29/2026 03/29/2025 Dental X-Ray: Full Mouth 03/25/2028 03/24/2025, 01/31 DTaP/Tdap/Td Vaccines (3 - Td or Tdap) [...] Procedure Name Priority Date/Time Associated Diagnosis Comments 7 EXTRACTION, ERUPTED TOOTH OR EXPOSED ROOT (ELEVATION/FORCEPS REMOVAL) Routine 03/29/2025 11:00 AM EDT CASE PRESENTATION, DETAILED AND EXTENSIVE TREATMENT PLANNING Routine 03/29/2025 11:00 AM EDT CASE PRESENTATION, DETAILED AND EXTENSIVE TREATMENT PLANNING Routine 03/24/2025 11:00 AM EDT Encounter for dental examination Dental caries Dental calculus Gingival recession, generalized PERIODIC ORAL EVALUATION - ESTABLISHED PATIENT Routine 03/24/2025 11:00 AM EDT Encounter for dental examination Dental caries Dental calculus Gingival recession, generalized INTRAORAL - COMPLETE SERIES OF RADIOGRAPHIC IMAGES Routine 03/24/2025 11:00 AM EDT Encounter for dental examination Dental caries Dental calculus Gingival recession, generalized PROPHYLAXIS - ADULT Routine 06/08/2019 1 2:00 AM EST from Last 3 Months or Most Recently Relevant to Health Maintenance Insurance DENTAL - [facility]
--- OUTSIDE RECORDS SUMMARY | 2025-04-22 18:24 | XMS_ITS | Encounter Summary ---
Author Organization [facility] Address [address] [place] [address] Care Team Providers Care Cloth Folder Machine Name Role Phone Obi Ricketts MD Primary Care Provider Macy Hanks MD Primary Care Prov ider [facility], Pcp Primary Care Provider [facility] Encounter Details Date Type Department Care Team Description 07/10/2021 Aluminum Siding Applicator Report Medical Records [address] [place] [id number] [facility] Social History Tobacco Use Types Packs/Day Years [...] on filedocumented in this encounter Care Teams Cloth Folder Machine Relationship Specialty Start Date End Date Obi Ricketts MD PCP - General Internal Medicine 01/09/21 03/03/22 Macy Mobley MD [address] [place] [address] [id number] PCP - General Internal Medicine 03/04/22 06/02/23 [facility], Pcp [address] [place] [address] PCP - General Internal Medicine 06/03/23 documented as of this encounter
--- OUTSIDE RECORDS SUMMARY | 2025-04-22 18:24 | XMS_ITS | Encounter Summary ---
Author Organization [facility] Address [address] [place] [address] Care Team Providers Care Lean Manager Name Role Phone Obi Ricketts MD Primary Care Provider Macy Hanks MD Primary Care Prov ider [facility], Pcp Primary Care Provider Unavailabl e Reason for Visit * Reason Onset Date Comments refill request 09/17/2021 Encounter Details Date Type Department Care Team Description 09/17/2021 Refill Adult Medicine [address] [address] Obi Ricketts MD refill request Social History [...] have Coronavirus / COVID-19? No / Unsure 09/05/2021 12:42 PM EST documented as of this encounter Miscellaneous Notes * Telephone Encounter - Dahiana Graves M.A. - 09/17/2021 4:01 PM EST Vit D refill not appropriate - filled 08/20 #90. Pt sent MyChart msg w/this info. Gabapentin due Lab Results Component Value Date NA 142 03/18/2021 K 3.8 03/18/2021 CO2 33 03/18/2021 CL 104 03/18/2021 BUN 15 03/18/2021 CREAT 1.04 03/18/2021 GLU 178 07/18/2021 CA 9.1 03/18/2021 GFR 53 03/18/2021 JOCELYN w/Lisset Montelongon 03/2021 JOCELYN w/PCP 07/2018 Next OV w/PCP 09/30/2021 * Telephone Encounter - Moris Mendoza - 09/17/2021 2:17 PM EST Patient would like script to be: E-PRESCRIBED/FAXED TO PHARMACY WHEN WAS THE PATIENT'S LAST APPOINTMENT IN ADULT MEDICINE? 03/18/21 WHEN WAS THE LAST TIME THE PATIENT SAW THEIR PCP? never Does patient have an upcoming appointment? Yes [...] N/A Patients current insurance carrier is: Payor: [facility] [employer] MCR / Plan: BeintooO $0 [facility] [employer] [id number] / Product Type: HMO [id number] documented in this encounter Plan of Treatment Not on file documented as of this encounter Visit Diagnoses Not on filedocumented in this encounter Care Teams Lean Manager Relationship Specialty Start Date End Date Obi Ricketts MD PCP - General Internal Medicine 01/09/21 03/03/22 Macy Mobley MD [address] [place] [address] PCP - General Internal Medicine 03/04/22 06/02/23 [facility], [address] [address] PCP - General Internal Medicine 06/03/23 documented as of this encounter
--- OUTSIDE RECORDS SUMMARY | 2025-04-22 18:24 | XMS_ITS | Encounter Summary ---
Author Organization [facility] Address [address] [place] [address] Care Team Providers Care Rifle Case Repairer Name Role Phone Macy Mobley MD Primary Care Prov ider [facility], Pcp Primary Care Provider Unavailabl e Reason for Visit * Reason Onset Date Comments other 09/19/2022 Encounter Details Date Type Department Care Team Description 09/19/2022 Telephone [facility] [address] [phone] Ayden Quinones MD [address] [address] other Social History Tobacco Use Types Packs/Day [...] encounter Miscellaneous Notes * Telephone Encounter - Tyra Owen M.A. - 09/19/2022 3:49 PM EST Called and spoke with Yoselin. She states the servicing facility's NPI is incorrect. This was rectified with [facility], they will update their records and resubmit the PA. Thank you. * Telephone Encounter - Tennille aMria Corin - 09/19/2022 10:02 AM EST Received call from Yoselin with [facility], she is stating for that the request for the injection to be done at [facility] with the NPI # provided, it comes up as out of network. She is requesting a call back LALITHA,as she states this is time sensitive for the Approval. She can be reached at [phone]. Thanks. documented in this encounter Plan of Treatment Not on file documented as of this encounter Visit Diagnoses Not on filedocumented in this encounter Care Teams Rifle Case Repairer Relationship Specialty Start Date End Date Macy Mobley MD [address] [place] [address] PCP - General Internal Medicine 03/04/22 06/02/23 [facility], Pcp [address] [place] [id number] PCP - General Internal Medicine 06/03/23 documented as of this encounter
--- OUTSIDE RECORDS SUMMARY | 2025-04-22 18:24 | XMS_ITS | Encounter Summary ---
Author Organization [facility] Address [address] [place] [address] Care Team Providers Care A P Mechanic Name Role Phone Catherine Cuellar MD Primary Care Provider Obi Whitfield MD Primary Care Provider Macy Hanks MD Primary Care Prov ider [facility], Pcp Primary Care Provider Unavailabl e Reason for Visit * Reason Comments E-prescribe Rx Request Encounter Details Date Type Department Care Team Description 10/19/2019 Refill Adult Medicine [address] [address] Minnie Ortiz PA-C [address] [place] [phone] E-prescribe Rx Request Social History Tobacco Use [...] encounter Miscellaneous Notes * Telephone Encounter - Weston Dumont M.A. - 10/20/2019 10:05 AM EDT Faxed to pharmacy * Telephone Encounter - Palmira Alicia M.A. - 10/20/2019 9:45 AM EDT No results found for: 25OHD, 25HYDROXYVIT * Telephone Encounter - Lennie Greene - 10/20/2019 8:34 AM EDT Patient would like script to be: E-PRESCRIBED/FAXED TO PHARMACY WHEN WAS THE PATIENT'S LAST APPOINTMENT IN ADULT MEDICINE? 05/03/19 WHEN WAS THE LAST TIME THE PATIENT SAW THEIR PCP? Same as above Does patient have an upcoming appointment? Yes 11/07/19 (THE MEDICATION REQUESTED IS ON THE MED [...] N/A Patients current insurance carrier is: [facility] / Plan: [facility] [employer] / Product Type: MEDICAID RISK documented in this encounter Plan of Treatment Not on file documented as of this encounter Visit Diagnoses Not on filedocumented in this encounter Care Teams A P Mechanic Relationship Specialty Start Date End Date Catherine Cuellar MD PCP - General Internal Medicine 10/01/17 01/08/21 Obi Ricketts MD PCP - General Internal Medicine 01/09/21 03/03/22 Raoul Rodríguez, Macy Dailey MD [address] [place] [phone] PCP - General Internal Medicine 03/04/22 06/02/23 [facility], Pcp [address] [place] [address] WAYNE WHITE [id number] PCP - General Internal Medicine 06/03/23 documented as of this encounter
--- OUTSIDE RECORDS SUMMARY | 2025-04-22 18:24 | XMS_ITS | Encounter Summary ---
Author Organization [employer] [facility] Address [address] [place] [address] Care Team Providers Care Manufacturing Software Engineer Name Role Phone Obi Ricketts MD Primary Care Provider Macy Hanks MD Primary Care Prov ider [facility], Pcp Primary Care Provider [facility] Reason for Visit * Reason Onset Date Comments refill request 10/23/2021 Encounter Details Date Type Department Care Team Description 10/23/2021 Refill Adult Medicine [address] [address] Obi Ricketts MD refill request Social History [...] have Coronavirus / COVID-19? No / Unsure 10/15/2021 11:39 AM EDT documented as of this encounter Miscellaneous Notes * Telephone Encounter - Kia Alvarez M.A. - 10/23/2021 2:00 PM EDT Lab Results Component Value Date NA 140 09/30/2021 K 3.5 09/30/2021 CO2 32 09/30/2021 CL 101 09/30/2021 BUN 16 09/30/2021 CREAT 1.07 09/30/2021 GLU 122 09/30/2021 CA 9.3 09/30/2021 GFR 51 09/30/2021 JOCELYN 09/30/21 NOV 02/18/22 * Telephone Encounter - Aron Meneses - 10/23/2021 1:56 PM EDT Patient would like script to be: E-PRESCRIBED/FAXED TO PHARMACY WHEN WAS THE PATIENT'S LAST APPOINTMENT IN ADULT MEDICINE? 09/30/2021 WHEN WAS THE LAST TIME THE PATIENT SAW THEIR PCP? Same as above Does patient have an upcoming appointment? Yes 02/18/2022 (THE MEDICATION REQUESTED IS ON THE MED [...] N/A Patients current insurance carrier is: Payor: [employer] MCR / Plan: ImaginovaO $0 [facility] [id number] / Product Type: HMO [id number] documented in this encounter Plan of Treatment Not on file documented as of this encounter Visit Diagnoses Not on filedocumented in this encounter Care Teams Manufacturing Software Engineer Relationship Specialty Start Date End Date Obi Ricketts MD PCP - General Internal Medicine 01/09/21 03/03/22 Raoul Rodríguez, Macy Dailey MD [address] [place] [address] PCP - General Internal Medicine 03/04/22 06/02/23 [facility], Pcp [address] [place] [address] PCP - General Internal Medicine 06/03/23 documented as of this encounter
--- OUTSIDE RECORDS SUMMARY | 2025-04-22 18:24 | XMS_ITS | Encounter Summary ---
Author Organization [facility] Address [address] [place] [address] Care Team Providers Care Electric Switch Repairer Name Role Phone Obi Ricketts MD Primary Care Provider Macy Hanks MD Primary Care Prov ider [facility], Pcp Primary Care Provider [facility] Reason for Visit * Reason Onset Date Comments refill request 12/26/2021 Encounter Details Date Type Department Care Team Description 12/26/2021 Refill Adult Medicine [address] [address] Obi Ricketts MD refill request Social History [...] Telephone Encounter - Kia Alvarez M.A. - 12/26/2021 9:16 AM EDT LRF 11/28/21 JOCELYN 09/30/21 NOV 02/18/22 Controlled substance contract and last issue date of medication reviewed. Patient is due for medication. Lab Results Component Value Date URBENZO NONE DETECTED 09/30/2021 UROPIATES NONE DETECTED 09/30/2021 UROXYCODONE NONE DETECTED 09/30/2021 URBARBITUATE NONE DETECTED 09/30/2021 PAINAMPHETAM NONE DETECTED 09/30/2021 PAINCOCAINE NONE DETECTED 09/30/2021 PAINCANNABIN NONE DETECTED 09/30/2021 11/28/2021 11/28/2021 1 Zolpidem Tartrate 5 Mg Tablet 28 28 Hy Par [id number] [facility] 0/0 0.25 LME [place] 11/26/2021 10/23/2021 1 Gabapentin 600 Mg Tablet 90 30 Ch Fin [id number] [facility] 1/3 2.01 [place] 10/31/2021 10/31/2021 1 Zolpidem Tartrate 5 Mg Tablet 28 28 Hy Par [id number] [facility] 0/0 0.25 [place] 10/23/2021 10/23/2021 1 Gabapentin 600 Mg Tablet 90 30 Ch Fin [id number] [facility] ([facility] 0/3 2.01 [place] 10/03/2021 10/03/2021 1 Zolpidem Tartrate 5 Mg Tablet 28 28 Hy Par [id number] [facility] ([facility] 0/0 0.25 [place] 09/26/2021 09/26/2021 1 Zolpidem Tartrate 5 Mg Tablet 7 7 Hy Par [id number] [facility] ([facility] 0/0 0.25 [place] 09/17/2021 09/17/2021 2 Gabapentin 600 Mg Tablet 90 30 Hy Par [id number] [facility] 0/0 2.01 [place] 08/27/2021 08/27/2021 3 Zolpidem Tartrate 5 Mg Tablet 28 28 Hy Par [id number] [facility] ([facility] 0/0 0.25 [place] 08/20/2021 08/20/2021 3 Gabapentin 600 Mg Tablet 90 30 Ch Fin [id number] [facility] ([facility] 0/0 2.01 [place] 07/30/2021 07/30/2021 3 Zolpidem Tartrate 5 Mg Tablet 28 28 Ch Fin [id number] [facility] ([facility] 0/0 0.25 L[place] 07/10/2021 06/03/2021 3 Gabapentin 600 Mg Tablet 90 30 Ch Fin [id number] [facility] ([facility] 1/ 2.01 LME Medicare [place] 07/02/2021 07/02/2021 3 Zolpidem Tartrate 5 Mg Tablet 28 28 Hy Par [id number] [facility] ([facility] 0/0 0.25 LME [place] 06/11/2021 06/03/2021 3 Gabapentin 600 Mg Tablet 90 30 Ch Fin [id number] [facility] ([facility] 0/1 2.01 L[place] 06/04/2021 06/04/2021 4 Zolpidem Tartrate 5 Mg Tablet 28 28 Hy Par [id number] [facility] ([facility]) 0/0 0.25 LME [place] 05/16/2021 05/01/2021 3 Gabapentin 600 Mg Tablet 90 30 Ch Fin [id number] [facility] ([facility] 0/0 2.01 E Medicare [place] * Telephone Encounter - Jeison Williamson - 12/26/2021 8:48 AM EDT \Patient would like script to be: E-PRESCRIBED/FAXED TO [...] Patients current insurance carrier is: Payor: [facility] MCR / Plan: O $0 [facility] [id number] / Product Type: HMO [id number] documented in this encounter Plan of Treatment Not on file documented as of this encounter Visit Diagnoses Not on filedocumented in this encounter Care Teams Electric Switch Repairer Relationship Specialty Start Date End Date Obi Ricketts MD PCP - General Internal Medicine 01/09/21 03/03/22 Macy Mobley MD [address] [place] [address] PCP - General Internal Medicine 03/04/22 06/02/23 [facility], Prashant [address] [place] [address] PCP - General Internal Medicine 06/03/23 documented as of this encounter
--- OUTSIDE RECORDS SUMMARY | 2025-04-22 18:24 | XMS_ITS | Encounter Summary ---
Author Organization [employer] [facility] Address [address] [place] [address] Care Team Providers Care Machine Stemmer Name Role Phone Catherine Cuellar MD Primary Care Provider Obi Whitfield MD Primary Care Provider Macy Hanks MD Primary Care Prov ider [facility], Pcp Primary Care [facility] Encounter Details Date Type Department Care Team Description 06/05/2020 Transfer Records Medical Records [address] [place] [address] Abstract, Provider Social History Tobacco Use Types Packs/Day Years [...] or suspected to have Coronavirus / COVID-19? Unable to assess 05/29/2020 9:01 AM EDT documented as of this encounter Plan of Treatment Not on file documented as of this encounter Visit Diagnoses Not on filedocumented in this encounter Care Teams Machine Stemmer Relationship Specialty Start Date End Date Catherine Cuellar MD PCP - General Internal Medicine 10/01/17 01/08/21 Obi Ricketts MD PCP - General Internal Medicine 01/09/21 03/03/22 Macy Mobley MD [address] [place] [address] PCP - General Internal Medicine 03/04/22 06/02/23 [facility], Pcp [address] [place] [address] PCP - General Internal Medicine 06/03/23 documented as of this encounter
--- OUTSIDE RECORDS SUMMARY | 2025-04-22 18:24 | XMS_ITS | Encounter Summary ---
Author Organization [facility] Address [address] [place] [address] Care Team Providers Care Golf Club Maker Name Role Phone Macy Mobley MD Primary Care Prov ider [facility], Pcp Primary Care Provider Unavailabl e Encounter Details Date Type Department Care Team Description 10/18/2022 SCAN [facility] [address] [facility] [address] [place] [id number] Ayden Quinones MD [address] [facility] [address] [place] [address] Social History Tobacco Use Types Packs/Day Years [...] suspected to have Coronavirus/COVID-19? No / Unsure 10/06/2022 2:33 PM EST documented as of this encounter Plan of Treatment Not on file documented as of this encounter Visit Diagnoses Not on filedocumented in this encounter Care Teams Golf Club Maker Relationship Specialty Start Date End Date Macy Mobley MD [address] [place] [phone] PCP - General Internal Medicine 03/04/22 06/02/23 [facility], Pcp [address] [place] [address] PCP - General Internal Medicine 06/03/23 documented as of this encounter
--- OUTSIDE RECORDS SUMMARY | 2025-04-22 18:24 | XMS_ITS | Encounter Summary ---
Author Organization [employer] Address [address] [facility] 7[address] [place] [address] Care Team Providers Care Cloth Tearer Name Role Phone Unavailable Primary Care Provider Unavailabl e Encounter Details Date Type Department Care Team (Latest Contact Info) Description 12/01/2018 Abstract [facility] CONVERSIONS Dental, Provider, DDS Social History Tobacco Use Types Packs/Day Years Used Date Smoking Tobacco: Never Assessed Comments Unknown Sex and Gender Information Value Date Recorded Sex Assigned at Female 06/02/2022 10:16 AM EDT Legal Sex Female 10:16 AM EDT Gender Identity Female 06/02/2022 10:16 AM EDT Sexual Orientation Straight 06/02/2022 10 :16 AM EDT documented as of this encounter Plan of Treatment Upcoming Encounters Date Type Department Care Team (Late st Contact Info) Description 05/16/2025 10:30 AM EDT Office Visit [facility] ADULT DENTAL [address] [place] [address] Begum-Herndon, Shanti, DDS [address] [place] [address] 05/29/2025 2:15 PM EDT Office Visit [facility] ADULT DENTAL [address] [place] [address] Ayah Lewis documented as of this encounter Visit Diagnoses Not on filedocumented in this encounter
--- OUTSIDE RECORDS SUMMARY | 2025-04-22 18:24 | XMS_ITS | Encounter Summary ---
Author Organization [employer] [facility] Address [address] [place] [address] Care Team Providers Care Can Doffer Name Role Phone Catherine Cuellar MD Primary Care Provider Obi Whitfield MD Primary Care Provider Macy Hanks MD Primary Care Prov ider [facility], Pcp Primary Care Provider Unavailabl e Reason for Visit * Reason Onset Date Comments refill request 06/21/2018 Encounter Details Date Type Department Care Team Description 06/21/2018 Refill Adult Medicine [address] [address] Catherine Cuellar MD refill request Social History [...] encounter Miscellaneous Notes * Telephone Encounter - Palmira Alicia M.A. - 06/21/2018 2:01 PM EST Patient is not on contract for this medication Last fill 05/24 Lab Results Component Value Date URINEOXYCOD NEGATIVE 05/25/2018 URBENZO NEGATIVE 05/25/2018 URAMPHETAMIN NEGATIVE 05/25/2018 URMARIJUANA NEGATIVE 05/25/2018 UROPIATES NEGATIVE 05/25/2018 URBARBITUATE NEGATIVE 05/25/2018 URCOCAINE NEGATIVE 05/25/2018 * Telephone Encounter - Bria Ashcarlos - 06/21/2018 1:58 PM EST Patient would like script to be: E-PRESCRIBED/FAXED TO PHARMACY WHEN WAS THE PATIENT'S LAST APPOINTMENT IN ADULT MEDICINE? 05/25/2018 WHEN WAS THE LAST TIME THE PATIENT SAW THEIR PCP? 01/28/2018 Does patient have an upcoming appointment? Yes 11/01/2018 (THE MEDICATION REQUESTED IS ON THE MED [...] N/A Patients current insurance carrier is: [facility] / Plan: [facility]ANCE / Product Type: MEDICAID RISK documented in this encounter Plan of Treatment Not on file documented as of this encounter Visit Diagnoses Not on filedocumented in this encounter Care Teams Can Doffer Relationship Specialty Start Date End Date Catherine Cuellar MD PCP - General Internal Medicine 10/01/17 01/08/21 Obi Ricketts MD PCP - General Internal Medicine 01/09/21 03/03/22 Macy Mobley MD [address] [place] [address] PCP - General Internal Medicine 03/04/22 06/02/23 [facility], Pcp [address] [place] [address] PCP - General Internal Medicine 06/03/23 documented as of this encounter
--- OUTSIDE RECORDS SUMMARY | 2025-04-22 18:24 | XMS_ITS | Encounter Summary ---
Author Organization [employer] [facility] Address [address] [place] [address] Care Team Providers Care Distillery Worker General Name Role Phone Catherine Cuellar MD Primary Care Provider Obi Whitfield MD Primary Care Provider Macy Hanks MD Primary Care Prov ider [facility], Pcp Primary Care Provider Unavailabl e Reason for Visit * Reason Onset Date Comments PT-1 12/09/2019 Encounter Details Date Type Department Care Team Description 12/09/2019 Telephone Adult Medicine [address] [address] Catherine Cuellar MD PT-1 Social History Tobacco [...] Encounter - Dee Dee Mendez M.A. - 12/12/2019 3:51 PM EDT Tracking #[id number] * Telephone Encounter - Bria Marino - 12/09/2019 2:22 PM EDT [employer] new provider or submitter number is [id number] Verify and document patients [place] Health insurance ID # (NOT [facility] ID): [id number] Payor: [facility] FFS / Plan: [facility]ICK[facility] ALLIANCE / Product Type: MEDICAID RISK Patient mailing address: [address] [place] [address] [address] [address] Telephone Information: ? Pt. demographics verified? YES If not accurate, update registration. Is this a NEW request or a RENEWAL? NEW Name of treating facility: [facility] Name (first & last) of treating provider? required : Geovanna Koch What is the medical reason why the patient is seeing the above provider? Diabetes follow up Address/Zip code for treating provider: [address] [place] [address] [place] [address] Phone # for treating provider: [phone] Is the provider in the [facility] (do they accept [place] Health insurance)? YES What specialtly is this provider? Endocrinology When is the visit scheduled for? tbd How often you will be seeing this [...] Will you have an alternative pick-up address? NO Do you have a service animal? NO PT DOES NOT NEED RELEASE OF INFORMATION SIGNED documented in this encounter Plan of Treatment Not on file documented as of this encounter Visit Diagnoses Not on filedocumented in this encounter Care Teams Distillery Worker General Relationship Specialty Start Date End Date Catherine Cuellar MD PCP - General Internal Medicine 10/01/17 01/08/21 Obi Ricketts MD PCP - General Internal Medicine 01/09/21 03/03/22 Macy Mobley MD [address] [place] [address] PCP - General Internal Medicine 03/04/22 06/02/23 [facility], Pcp [address] [place] [address] PCP - General Internal Medicine 06/03/23 documented as of this encounter
--- OUTSIDE RECORDS SUMMARY | 2025-04-22 18:24 | XMS_ITS | Encounter Summary ---
Author Organization [employer] [facility] Address [address] [place] [address] Care Team Providers Care Silk Screen Processor Name Role Phone Macy Mobley MD Primary Care Prov ider [facility], Pcp Primary Care Provider Unavailabl e Reason for Visit * Reason Onset Date Comments New Med Request 10/24/2022 Gel injection Encounter Details Date Type Department Care Team Description 10/24/2022 Telephone [facility] [address] [facility] [address] [place] [address] Jennifer Bhandari APRN New Med Request (Gel injection) Social History Tobacco Use Types Packs/Day Years [...] Recorded In the last 10 days, have nav u been in contact with someone who was confirmed or suspected to have Coronavirus/COVID-19? No / Unsure 10/06/2022 2:33 PM EST documented as of this encounter Miscellaneous Notes * Telephone Encounter - Tyra Dione-Jazmyne Mera - 11/19/2022 9:32 AM EDT Called and spoke with patient's daughter Jacquelyn. She states she will have to talk to her mother about the injection because she just had surgery on her thyroid. Jacquelyn was advised to call the office back to make an appointment. Verbalizes understanding. * Telephone Encounter - Tyra Owen M.A. - 10/24/2022 9:26 AM EDT A message was left with patient's daughter Jacquelyn to inform her that patient has been approved for the Gel injection Durolane. Advised to call the office to make an appointment for the injection. Awaiting call back. documented in this encounter Plan of Treatment Not on file documented as of this encounter Visit Diagnoses Not on filedocumented in this encounter Care Teams Silk Screen Processor Relationship Specialty Start Date End Date Macy Mobley MD [address] [place] [address] PCP - General Internal Medicine 03/04/22 06/02/23 [facility], Pcp [address] [place] [address] PCP - General Internal Medicine 06/03/23 documented as of this encounter
--- OUTSIDE RECORDS SUMMARY | 2025-04-22 18:24 | XMS_ITS | Encounter Summary ---
Author Organization [employer] [facility] Address [address] [place] [address] Care Team Providers Care Polystyrene Bead Molder Name Role Phone Macy Mobley MD Primary Care Prov ider [facility], Pcp Primary Care Provider Unavailabl e Reason for Visit * Reason Onset Date Comments radiology 05/26/2023 MRI RT Knee Encounter Details Date Type Department Care Team Description 05/26/2023 Telephone [facility] [address] [place] [phone] Jennifer Bhandari APRN radiology (MRI RT Knee) Social History Tobacco Use Types Packs/Day Years [...] * Telephone Encounter - Ivy Berger - 06/18/2023 8:32 AM EST Left pt vm to return call. * Telephone Encounter - Sanjana Echevarria - 06/05/2023 2:43 PM EDT MRI department is calling stating Lida has a [facility] vik[employer] pace maker in and it's not compatible with the MRI machine and she will not be able to get her MRI done * Telephone Encounter - Ivy Berger - 05/26/2023 10:26 AM EDT MRI request faxed to [facility]- Fax number [phone].They will obtain prior auth, if needed, and call patient to schedule, and fax us appt date and time. documented in this encounter Plan of Treatment Not on file documented as of this encounter Visit Diagnoses Not on filedocumented in this encounter Care Teams Polystyrene Bead Molder Relationship Specialty Start Date End Date Macy Mobley MD [address] [place] [address] PCP - General Internal Medicine 03/04/22 06/02/23 [facility], Pcp [address] [place] [address] PCP - General Internal Medicine 06/03/23 documented as of this encounter
--- OUTSIDE RECORDS SUMMARY | 2025-04-22 18:24 | XMS_ITS | Encounter Summary ---
Author Organization [facility] Address [address] [place] [address] Care Team Providers Care Chemical Equipment Repairer Name Role Phone Macy Mobley MD Primary Care Prov ider [facility], Pcp Primary Care Provider Unavailabl e Encounter Details Date Type Department Care Team Description 03/17/2023 SCAN [facility] - [facility] [address] [facility] [address] [place] [address] Jennifer Bhandari APRN Social History [...] on filedocumented in this encounter Care Teams Chemical Equipment Repairer Relationship Specialty Start Date End Date Macy Mobley MD [address] [place] [address] PCP - General Internal Medicine 03/04/22 06/02/23 [facility], Pcp [address] [place] [address] PCP - General Internal Medicine 06/03/23 documented as of this encounter
--- OUTSIDE RECORDS SUMMARY | 2025-04-22 18:24 | XMS_ITS | Encounter Summary ---
Author Organization [facility] [facility] Address [address] [place] [address] Care Team Providers Care Diversified Crops I Farmworker Name Role Phone Obi Ricketts MD Primary Care Provider Macy Hanks MD Primary Care Prov ider [facility], Pcp Primary Care Provider [facility] Encounter Details Date Type Department Care Team Description 01/20/2022 Welding Supervisor Report Medical Records [address] [place] [address] Abstract, Provider Social History Tobacco Use Types [...] on filedocumented in this encounter Care Teams Diversified Crops I Farmworker Relationship Specialty Start Date End Date Obi Ricketts MD PCP - General Internal Medicine 01/09/21 03/03/22 Macy Mobley MD [address] [place] [address] [phone] PCP - General Internal Medicine 03/04/22 06/02/23 [facility], Pcp [address] [place] [address] PCP - General Internal Medicine 06/03/23 documented as of this encounter
--- OUTSIDE RECORDS SUMMARY | 2025-04-22 18:24 | XMS_ITS | Encounter Summary ---
Author Organization [employer] [facility] Address [address] [place] [address] Care Team Providers Care Radiologist Physician Name Role Phone Macy Mobley MD Primary Care Prov ider [facility], Pcp Primary Care Provider Unavailabl e Reason for Visit * Reason Onset Date Comments APPOINTMENT 10/15/2022 Encounter Details Date Type Department Care Team Description 10/15/2022 Refill Adult Medicine [address] [address] Macy Mobley MD [address] [place] [phone] APPOINTMENT Social History Tobacco Use Types Packs/Day Years [...] Telephone Encounter - Kia Alvarez M.A. - 10/15/2022 4:25 PM EDT PATIENT is overdue for 3 month follow up appointment, please call to schedule sooner appointment with PCP Care Team. *Refill refused as too soon & needs a sooner appointment, last dispensed on 10/12/22 for 30 day supply. JOCELYN 06/04/22- DR. Moreno- problem visit requested to f/u with PCP Last med review- 03/24/22 - *Overdue for 3 month f/u * Telephone Encounter - Estella Peoples - 10/15/2022 4:12 PM EDT Patient would like script to be: E-PRESCRIBED/FAXED TO PHARMACY WHEN WAS THE PATIENT'S LAST APPOINTMENT IN ADULT MEDICINE? 06/04/22 WHEN WAS THE LAST TIME THE PATIENT SAW THEIR PCP? 04/01/22 Does patient have an upcoming appointment? 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) Type II or unspecified type diabetes mellitus with neurological manifestations, not stated as uncontrolled Insomnia, unspecified type Primary hypertension Unspecified essential hypertension Gout of left foot, unspecified cause, unspecified chronicity documented in this encounter Care Teams Radiologist Physician Relationship Specialty Start Date End Date Macy Mobley MD [address] [place] [address] PCP - General Internal Medicine 03/04/22 06/02/23 [facility], Pcp [address] [place] [address] PCP - General Internal Medicine 06/03/23 documented as of this encounter
--- OUTSIDE RECORDS SUMMARY | 2025-04-22 18:24 | XMS_ITS | Encounter Summary ---
Author Organization [facility] Address [address] [place] [address] Care Team Providers Care Habilitation Specialist Name Role Phone Catherine Cuellar MD Primary Care Provider Obi Whitfield MD Primary Care Provider Macy Hanks MD Primary Care Prov ider [facility] Pcp Primary Care Provider [facility] Encounter Details Date Type Department Care Team Description 06/09/2019 Rejected Items Clerk Report Medical Records [address] [place] [address] Tavares Cutler MD Social History Tobacco Use Types Packs/Day [...] on filedocumented in this encounter Care Teams Habilitation Specialist Relationship Specialty Start Date End Date Catherine Cuellar MD PCP - General Internal Medicine 10/01/17 01/08/21 Obi Ricketts MD PCP - General Internal Medicine 01/09/21 03/03/22 Macy Mobley MD [address] [place] [address] PCP - General Internal Medicine 03/04/22 06/02/23 [facility], Pcp [address] [place] [address] PCP - General Internal Medicine 06/03/23 documented as of this encounter
--- OUTSIDE RECORDS SUMMARY | 2025-04-22 18:24 | XMS_ITS | Encounter Summary ---
Author Organization [facility] Address [address] [place] [address] Care Team Providers Care Emergency Room Orderly Name Role Phone Catherine Cuellar MD Primary Care Provider Obi Whitfield MD Primary Care Provider Macy Hanks MD Primary Care Prov ider [facility], Pcp Primary Care Provider Unavailabl e Reason for Visit * Reason Onset Date Comments PT-1 12/09/2019 Encounter Details Date Type Department Care Team Description 12/09/2019 Telephone Adult Medicine [address] [address] Catherine Cuellar MD PT-1 Social History Tobacco [...] - Dee Dee Mendez M.A. - 12/12/2019 3:49 PM EDT Tracking #[id number] * Telephone Encounter - Bria Marino - 12/09/2019 2:25 PM EDT [facility] Medicaid Group new provider or submitter number is [id number] Verify and document patients [place] Health insurance ID # (NOT [facility] ID): [id number] Payor: [employer] FFS / Plan: [facility] ALLIANCE / Product Type: MEDICAID RISK Patient mailing address: [address] [place] [address] [address] [id number] Telephone Information: ? Pt. demographics verified? YES If not accurate, update registration. Is this a NEW request or a RENEWAL? RENEWAL Name of treating facility: [facility] Name (first & last) of treating provider? required : Catherine Cuellar What is the medical reason why the patient is seeing the above provider?Med management Address/Zip code for treating provider: [address] [place] [address] Phone # for treating provider: [phone] Is the provider in the [facility] network (do they accept [place] Health insurance)? YES What specialtly is this provider? Adult Medicine When is the visit scheduled for? 02/06/2020 How often you will be seeing this particular provider? 2 times a month Do you have friends or family who [...] on filedocumented in this encounter Care Teams Emergency Room Orderly Relationship Specialty Start Date End Date Catherine Cuellar MD PCP - General Internal Medicine 10/01/17 01/08/21 Obi Ricketts MD PCP - General Internal Medicine 01/09/21 03/03/22 Macy Mobley MD [address] [place] [address] PCP - General Internal Medicine 03/04/22 06/02/[address] [address] PCP - General Internal Medicine 06/03/23 documented as of this encounter
--- OUTSIDE RECORDS SUMMARY | 2025-04-22 18:24 | XMS_ITS | Encounter Summary ---
Author Organization [facility] [employer] [facility] Address [address] [place] [address] Care Team Providers Care Facility Coordinator Name Role Phone Obi Ricketts MD Primary Care Provider Macy Hanks MD Primary Care Prov ider [facility], Pcp Primary Care Provider [facility] Encounter Details Date Type Department Care Team Description 06/07/2021 [facility] Medical Records [address] [place] [address] Abstract, Provider Social History Tobacco Use Types [...] on filedocumented in this encounter Care Teams Facility Coordinator Relationship Specialty Start Date End Date Obi Ricketts MD PCP - General Internal Medicine 01/09/21 03/03/22 Macy Mobley MD [address] [place] [address] PCP - General Internal Medicine 03/04/22 06/02/23 [facility], Pcp [address] [place] [address] PCP - General Internal Medicine 06/03/23 documented as of this encounter
--- OUTSIDE RECORDS SUMMARY | 2025-04-22 18:24 | XMS_ITS | Encounter Summary ---
Author Organization [facility] Address [address] [place] [address] Care Team Providers Care Certified Medical Records Coder Name Role Phone Catherine Cuellar MD Primary Care Provider Obi Whitfield MD Primary Care Provider Macy Hanks MD Primary Care Prov ider [facility], Pcp Primary Care Provider Unavailabl e Reason for Visit * Reason Onset Date Comments PT-1 12/02/2018 Encounter Details Date Type Department Care Team Description 12/02/2018 Telephone Adult Medicine [address] [address] Catherine Cuellar MD PT-1 Social History Tobacco [...] Encounter - Dee Dee Mendez M.A. - 12/17/2018 11:20 AM EDT Tracking #[id number] * Telephone Encounter - Joelle Mueller - 12/02/2018 2:04 PM EDT 12/08/17 [facility] patients will now be included in this workflow: Verify and document patients [place] Health insurance ID # (NOT [facility] ID): [id number] Payor: [employer] FFS / Plan: [facility] ALLIANCE / Product Type: MEDICAID RISK Patient mailing address: [address] [place] [address] [place] [address] Pt. demographics verified? YES If not accurate, update registration. Is this a NEW request or a RENEWAL? renewal Name of treating facility: [facility] Endocrinology Name (first & last) of treating provider? required : JAMES ALEMAN What is the medical reason why the patient is seeing the above provider? diabetes Address/Zip code for treating provider: [address] [place] [address] Phone # for treating provider: [phone] Is the provider in the [employer] network (do they accept [place] Health insurance)? YES What specialtly is this provider? endocrionology When is the visit scheduled for? 02/09/19 How often you will be seeing this particular provider? 2-3 times every 3 months for 12 moths Do you have friends or family who can transport you to this visit? NO If yes, do not complete request. Is there anything stopping you from using public transportation? If yes, explain. : YES Is there a medical reason (diagnosis) why you are unable to use public transportation? If yes, explain: yes - patient does not know how to take public transportation, she does not know how to speak greek. Do you need a wheelchair van? NO Do you need an escort to accompany you? If yes, explain why. NO Will you have an alternative pick-up address? NO Do you have a service animal? NO PT DOES NOT NEED RELEASE OF INFORMATION SIGNED documented in this encounter Plan of Treatment Not on file documented as of this encounter Visit Diagnoses Not on filedocumented in this encounter Care Teams Certified Medical Records Coder Relationship Specialty Start Date End Date Catherine Cuellar MD PCP - General Internal Medicine 10/01/17 01/08/21 Obi Ricketts MD PCP - General Internal Medicine 01/09/21 03/03/22 Macy Mobley MD [address] [place] [address] PCP - General Internal Medicine 03/04/22 06/02/23 [facility], Pcp [address] [place] [address] PCP - General Internal Medicine 06/03/23 documented as of this encounter
--- OUTSIDE RECORDS SUMMARY | 2025-04-22 18:24 | XMS_ITS | Encounter Summary ---
Author Organization [facility] Address [address] [place] [address] Care Team Providers Care Pad Extractor Tender Name Role Phone Catherine Cuellar MD Primary Care Provider Obi Whitfield MD Primary Care Provider Macy Hanks MD Primary Care Prov ider [facility], Pcp Primary Care Provider Unavailabl e Reason for Visit * Reason Comments E-prescribe Rx Request Encounter Details Date Type Department Care Team Description 07/16/2020 Refill Adult Medicine [address] [address] Catherine Cuellar MD E-prescribe Rx Request Social [...] Telephone Encounter - Weston Dumont M.A. - 07/18/2020 9:23 AM EST Faxed to pharmacy * Telephone Encounter - Destinee Huddleston - 07/16/2020 2:18 PM EST Patient would like script to be: E-PRESCRIBED/FAXED TO PHARMACY WHEN WAS THE PATIENT'S LAST APPOINTMENT IN ADULT MEDICINE? 07/04/2020 WHEN WAS THE LAST TIME THE PATIENT SAW THEIR PCP? 05/29/2020 Does patient have an upcoming appointment? No-patient will call back to book appointment (THE MEDICATION REQUESTED IS ON THE MED [...] N/A Patients current insurance carrier is: Payor: [employer] FFS / Plan: [employer] ALLIANCE / Product Type: MEDICAID RISK documented in this encounter Plan of Treatment Not on file documented as of this encounter Visit Diagnoses Not on filedocumented in this encounter Care Teams Pad Extractor Tender Relationship Specialty Start Date End Date Catherine Cuellar MD PCP - General Internal Medicine 10/01/17 01/08/21 Obi Ricketts MD PCP - General Internal Medicine 01/09/21 03/03/22 Macy Mobley MD [address] [place] [address] PCP - General Internal Medicine 03/04/22 06/02/23 Prashant Viera [address] [place] [address] PCP - General Internal Medicine 06/03/23 documented as of this encounter
--- OUTSIDE RECORDS SUMMARY | 2025-04-22 18:24 | XMS_ITS | Encounter Summary ---
Author Organization [employer] [facility] Address [address] [place] [address] Care Team Providers Care Health Aid Name Role Phone Obi Ricketts MD Primary Care Provider Macy Hanks MD Primary Care Prov ider [facility], Pcp Primary Care Provider Unavailabl e Reason for Visit * Reason Comments E-prescribe Rx Request Encounter Details Date Type Department Care Team Description 03/01/2021 Refill Adult Medicine [address] [address] Catherine Cuellar MD E-prescribe Rx Request Social [...] Encounter - Ashley Ashton M.A. - 03/04/2021 3:29 PM EDT JOCELYN 12/04/2020 F/U appt 03/18/2021 Lab Results Component Value Date NA 139 08/11/2019 K 3.6 08/11/2019 CO2 31 08/11/2019 CL 103 08/11/2019 BUN 14 08/11/2019 CREAT 0.99 05/17/2020 GLU 114 12/14/2020 CA 9.0 08/11/2019 GFR 56 05/17/2020 * Telephone Encounter - Destinee Sharp - 03/04/2021 2:53 PM EDT Patient would like script to [...] N/A Patients current insurance carrier is: Payor: [employer] FFS / Plan: [employer] ALLIANCE / Product Type: MEDICAID RISK documented in this encounter Plan of Treatment Not on file documented as of this encounter Visit Diagnoses Not on filedocumented in this encounter Care Teams Health Aid Relationship Specialty Start Date End Date Obi Ricketts MD PCP - General Internal Medicine 01/09/21 03/03/22 Raoul Rodríguez, Macy Dailey MD [address] [place] [address] PCP - General Internal Medicine 03/04/22 06/02/23 [facility], Pcp [address] [place] [address] PCP - General Internal Medicine 06/03/23 documented as of this encounter
--- OUTSIDE RECORDS SUMMARY | 2025-04-22 18:24 | XMS_ITS | Encounter Summary ---
Author Organization [facility] Address [address] [place] [address] Care Team Providers Care Student Loan Counselor Name Role Phone Macy Mobley MD Primary Care Prov ider [facility], Pcp [facility] Encounter Details Date Type Department Care Team Description 12/30/2022 Transfer Records Medical Records [address] [place] [address] Abstract, Provider Social History Tobacco Use Types [...] filedocumented in this encounter Care Teams Student Loan Counselor Relationship Specialty Start Date End Date Macy Mobley MD [address] [place] [phone] PCP - General Internal Medicine 03/04/22 06/02/23 [facility], Pcp [address] [place] [address] PCP - General Internal Medicine 06/03/23 documented as of this encounter
--- OUTSIDE RECORDS SUMMARY | 2025-04-22 18:24 | XMS_ITS | Encounter Summary ---
Author Organization [facility] Address [address] [place] [address] Care Team Providers Care Telephone Order Dispatcher Name Role Phone Catherine Cuellar MD Primary Care Provider Obi Whitfield MD Primary Care Provider Macy Hanks MD Primary Care Prov ider [facility] Pcp Primary [facility] Encounter Details Date Type Department Care Team Description 11/19/2018 Long Wall Shear Operator Report Medical Records [address] [place] [address] Tank Hand Social History Tobacco Use Types [...] on filedocumented in this encounter Care Teams Telephone Order Dispatcher Relationship Specialty Start Date End Date Catherine Cuellar MD PCP - General Internal Medicine 10/01/17 01/08/21 Obi Ricketts MD PCP - General Internal Medicine 01/09/21 03/03/22 Macy Mobley MD [address] [place] [address] PCP - General Internal Medicine 03/04/22 06/02/23 [facility] Pcp [address] [place] [address] PCP - General Internal Medicine 06/03/23 documented as of this encounter
--- OUTSIDE RECORDS SUMMARY | 2025-04-22 18:24 | XMS_ITS | Encounter Summary ---
Author Organization [facility] Address [address] [place] [address] Care Team Providers Care Heat Treat Technician Name Role Phone Catherine Cuellar MD Primary Care Provider Obi Whitfield MD Primary Care Provider Macy Hanks MD Primary Care Prov ider [facility], Pcp Primary Care Provider Unavailabl e Reason for Visit * Reason Comments E-prescribe Rx Request Encounter Details Date Type Department Care Team Description 12/01/2020 Refill Adult Medicine [address] [address] Catherine Cuellar MD E-prescribe Rx Request Social [...] have Coronavirus / COVID-19? No / Unsure 12/04/2020 2:32 PM EDT documented as of this encounter Miscellaneous Notes * Telephone Encounter - Jeison Williamson - 12/02/2020 9:55 AM EDT Patient would like script to be: E-PRESCRIBED/FAXED TO PHARMACY WHEN WAS THE PATIENT'S LAST APPOINTMENT IN ADULT MEDICINE? 05/29/2020 WHEN WAS THE LAST TIME THE PATIENT SAW THEIR PCP? Same as above Does patient have an upcoming appointment? Yes 12/04/2020 (THE MEDICATION REQUESTED IS ON THE MED [...] N/A Patients current insurance carrier is: Payor: [employer] FFS / Plan: [employer] / Product Type: MEDICAID RISK documented in this encounter Plan of Treatment Not on file documented as of this encounter Visit Diagnoses Not on filedocumented in this encounter Care Teams Heat Treat Technician Relationship Specialty Start Date End Date Catherine Cuellar MD PCP - General Internal Medicine 10/01/17 01/08/21 Obi Ricketts MD PCP - General Internal Medicine 01/09/21 03/03/22 Macy Mobley MD [address] [place] [address] PCP - General Internal Medicine 03/04/22 06/02/23 Prashant Viera [address] [place] [address] PCP - General Internal Medicine 06/03/23 documented as of this encounter
--- OUTSIDE RECORDS SUMMARY | 2025-04-22 18:24 | XMS_ITS | Encounter Summary ---
Author Organization [facility] Address [address] [place] [address] Care Team Providers Care Floor Director Name Role Phone Obi Ricketts MD Primary Care Provider Macy Hanks MD Primary Care Prov ider [facility], Pcp Primary Care Provider Unavailabl e Reason for Visit * Reason Onset Date Comments PT-1 08/29/2021 Encounter Details Date Type Department Care Team Description 08/29/2021 Telephone Adult Medicine [address] [address] Obi Ricketts MD PT-1 Social History Tobacco Use Types [...] on filedocumented in this encounter Care Teams Floor Director Relationship Specialty Start Date End Date Obi Ricketts MD PCP - General Internal Medicine 01/09/21 03/03/22 Macy Mobley MD [address] [place] [address] PCP - General Internal Medicine 03/04/22 06/02/23 [facility], Pcp [address] [place] [address] PCP - General Internal Medicine 06/03/23 documented as of this encounter
--- OUTSIDE RECORDS SUMMARY | 2025-04-22 18:24 | XMS_ITS | Clinical Summary ---
Author Organization [facility] Address [address] [place] [address] Phone Care Team Providers Care Center Consultant Name Role Phone Unavailable Primary Care Provider [...] file Medical Devices Not on file [facility] [place] [id number] MEDICARE REPLACEMENT [facility] MEDICARE REPLACEMENT Additional Source Comments The information contained in this document represents components of the legal health record. It is not the complete legal health record.[facility]
--- OUTSIDE RECORDS SUMMARY | 2025-04-22 18:24 | XMS_ITS | Encounter Summary ---
Author Organization [facility] Address [address] [place] [address] Care Team Providers Care Pharmacy Scheduler Name Role Phone Macy Mobley MD Primary Care Prov ider [facility], Pcp Primary Care Provider Unavailabl e Reason for Visit * Reason Onset Date Comments refill request 08/08/2022 Encounter Details Date Type Department Care Team Description 08/08/2022 Refill Adult Medicine [address] [address] Macy Mobley MD [address] [place] [address] refill request Social History Tobacco Use Types [...] on filedocumented in this encounter Care Teams Pharmacy Scheduler Relationship Specialty Start Date End Date Macy Mobley MD [address] [place] [address] PCP - General Internal Medicine 03/04/22 06/02/23 [facility], Pcp [address] [place] [address] PCP - General Internal Medicine 06/03/23 documented as of this encounter
--- OUTSIDE RECORDS SUMMARY | 2025-04-22 18:24 | XMS_ITS | Encounter Summary ---
Author Organization [employer] [facility] Address [address] [place] [address] Care Team Providers Care Neonatal Intensive Care Unit Nurse Name Role Phone Catherine Cuellar MD Primary Care Provider Obi Whitfield MD Primary Care Provider Macy Hanks MD Primary Care Prov ider [facility], Pcp Primary Care Provider Unavailabl e Reason for Visit * Reason Comments E-prescribe Rx Request Encounter Details Date Type Department Care Team Description 11/10/2018 Refill Adult Medicine [address] [address] Minnie Ortiz PA-C [address] [place] [address] E-prescribe Rx Request Social History Tobacco Use [...] encounter Miscellaneous Notes * Telephone Encounter - Lisa Jalloh - 11/10/2018 8:56 AM EDT Patient would like script to be: E-PRESCRIBED/FAXED TO PHARMACY WHEN WAS THE PATIENT'S LAST APPOINTMENT IN ADULT MEDICINE? 11/01/18 WHEN WAS THE LAST TIME THE PATIENT SAW THEIR PCP? Same as above Does patient have an upcoming appointment? Yes 05/03/19 (THE MEDICATION REQUESTED IS ON THE MED [...] N/A Patients current insurance carrier is: Payor: [employer] FFS / Plan: [employer] ALLIANCE / Product Type: MEDICAID RISK documented in this encounter Plan of Treatment Not on file documented as of this encounter Visit Diagnoses Not on filedocumented in this encounter Care Teams Neonatal Intensive Care Unit Nurse Relationship Specialty Start Date End Date Catherine Cuellar MD PCP - General Internal Medicine 10/01/17 01/08/21 Obi Ricketts MD PCP - General Internal Medicine 01/09/21 03/03/22 Macy Mobley MD [address] [place] [address] PCP - General Internal Medicine 03/04/22 [facility]02[facility] [address] [place] [address] PCP - General Internal Medicine 06/03/23 documented as of this encounter
--- OUTSIDE RECORDS SUMMARY | 2025-04-22 18:24 | XMS_ITS | Clinical Summary ---
Author Organization [facility] Address [address] [place] [address] Phone Care Team Providers Care Teaching Assistant Name Role Phone Catherine Cuellar MD Primary Care Provider [phone] Allergies Active Allergy Reactions Criticality Noted Date [...] failure 11/30/2020 Overview (11/30/2020): Dr. Jens Rosas, [facility] cardiology Hypertensive disorder 11/30/2020 Hypercholesterolemia 11/30/2020 Gastroesophageal reflux disease 11/30/2020 Fibromyalgia 11/30/2020 Ectopic kidney 11/30/2020 Dilated cardiomyopathy 11/30/2020 Overview (11/30/2020): 05/2017 EF 40% Dr. Jens Rosas -[facility] cardiology. AICD Proteinuria 11/30/2020 Renal disorder due to type 2 diabetes mellitus 0 11/30/2020 Pain of knee region 05/03/2019 Chronic kidney disease stage 3 due to type 2 diabetes mellitus 08/17/2018 Overview (11/30/2020): Cr 2.0 on 07/29/18 - outside labs by Endo. Referred by Josue to Dr Cornel Cutler ([facility]). Latest Cr 06/06/19 1.14, Hgb [...] patient's age to complete this topic Insurance [facility] ([id number]) [facility] ([id number]) Care Teams Teaching Assistant Relationship Specialty Start Date End Date Catherine Cuellar MD PCP - General 08/13/20
--- OUTSIDE RECORDS SUMMARY | 2025-04-22 18:25 | XMS_ITS | Encounter Summary ---
Author Organization [facility] Address [address] [place] [address] Care Team Providers Care Engine Research Engineer Name Role Phone Catherine Cuellar MD Primary Care Provider Obi Whitfield MD Primary Care Provider Macy Hanks MD Primary Care Prov ider [facility], Pcp Primary Care Provider Unavailabl e Reason for Visit * Reason Onset Date Comments refill request 03/23/2018 Encounter Details Date Type Department Care Team Description 03/23/2018 Refill Adult Medicine [address] [address] Catherine Cuellar MD refill request Social History [...] encounter Miscellaneous Notes * Telephone Encounter - Catherine Cuellar MD - 03/23/2018 5:33 PM EDT Called pt to find out why requesting if we had discussed tapering it off She had adverse effects with trazodone - headache She did call here in January to say she wanted to stop but it isn't specified why. Nurse called her back but line was busy I discussed the FDA recommendations for women to take 5 mg Ambien. She states did not do anything for me in the past . Reviewed [facility]. Last prescription for zolpidem [address] Ioana Escobedo dated 02/23/18 (this wasthe last refill of a Rx originally dated 12/22/2017). I will prescribe Lunesta 2 mg daily at bedtime. She will call if this is ineffective or not covered If so I will prescribe 5 mg Ambien Follow-up in May as scheduled. May need CSC if she is to be on meds long-term. * Telephone Encounter - Eloisa Delgadillo M.A. - 03/23/2018 4:30 PM EDT In chart there is a tapering dose documentated under historic. Pt is not on contract please advise on refill request * Telephone Encounter - Caridad Lynn - 03/23/2018 3:59 PM EDT Patient would like script to be: E-PRESCRIBED/FAXED TO PHARMACY WHEN WAS THE PATIENT'S LAST APPOINTMENT IN ADULT MEDICINE? 01-28-18 WHEN WAS THE LAST TIME THE PATIENT SAW THEIR PCP? Same as above Does patient have an upcoming appointment? Yes 05-03-18 (THE MEDICATION REQUESTED IS ON THE MED LIST ABOVE) One or some of the medications requested were on the HISTORICAL MED list Did you check the Pharmacy information above?: YES Patient wants: 30 -day supply Is this a mail order prescription request ? NO If the refill is from a FAXED refill request what is the RX # listed on the fax? N/A Patients current insurance carrier is: Payor: [employer] FFS / Plan: [employer] ALLIANCE / Product Type: MEDICAID RISK documented in this encounter Plan of Treatment Not on file documented as of this encounter Visit Diagnoses Not on filedocumented in this encounter Care Teams Engine Research Engineer Relationship Specialty Start Date End Date Catherine Cuellar MD PCP - General Internal Medicine 10/01/17 01/08/21 Obi Ricketts MD PCP - General Internal Medicine 01/09/21 03/03/22 Raoul Rodríguez, Macy Dailey MD [address] [place] [address] PCP - General Internal Medicine 03/04/22 06/02/23 [facility], [address] [address] PCP - General Internal Medicine 06/03/23 documented as of this encounter
--- OUTSIDE RECORDS SUMMARY | 2025-04-22 18:25 | XMS_ITS | Encounter Summary ---
Author Organization [facility] Address [address] [place] [address] Care Team Providers Care Steel Placer Name Role Phone Catherine Cuellar MD Primary Care Provider Obi Whitfield MD Primary Care Provider Macy Hanks MD Primary Care Prov ider [facility], Pcp Primary Care Provider Unavailthomas e Encounter Details Date Type Department Care Team Description 12/18/2017 Release of Information Medical Records [address] [place] [id number] Abstract, Provider Social History Tobacco Use Types [...] on filedocumented in this encounter Care Teams Steel Placer Relationship Specialty Start Date End Date Catherine Cuellar MD PCP - General Internal Medicine 10/01/17 01/08/21 Obi Ricketts MD PCP - General Internal Medicine 01/09/21 03/03/22 Macy Mobley MD [address] [place] [address] PCP - General Internal Medicine 03/04/22 06/02/23 [facility], Pcp [address] [place] [address] PCP - General Internal Medicine 06/03/23 documented as of this encounter
--- OUTSIDE RECORDS SUMMARY | 2025-04-22 18:25 | XMS_ITS | Clinical Summary ---
Author Organization [facility] Address [address] [place] [address] Care Team Providers Care Die Forger Name Role Phone Cordelia Moraes PA-C Primary Care Provider [phone] Source Comments PLEASE NOTE, if this patient [...] disease, with long-term current use of insulin ([facility]) Use to test blood glucose three times daily. 100 Each 11 024 Active triamcinolone (KENALOG) 0.5 % cream APPLY TO AFFECTED AREA TWICE DAILY FOR 2 WEEKS. THEN ON AND OFF NEEDED FOR FLARES. 15 g 1 024 Active metoprolol succinate XL (TOPROL-XL) 100 mg 24 hr tabletIndications :Heart failure with reduced ejection fraction, NYHA class III ([facility]) Take 1 Tablet by mouth once daily (Prescribed by [facility]) Active spironolactone (ALDACTONE) 25 mg tabletIndications :Heart failure with reduced ejection fraction, NYHA class III ([facility]) Take 1 Tablet by mouth once daily (Prescribed by [facility]) Active blood-glucose meter,continuous (FREESTYLE CLIF 3 READER) miscIndications:T ype 2 diabetes mellitus with stage 3a chronic kidney disease, with long-term current use of insulin ([facility]) Use to test blood glucose continuously. (Freestyle Clif 3 reader) 1 Each Active blood-glucose sensor (FREESTYLE CLIF 3 PLUS SENSOR) deviIndications:T ype 2 diabetes mellitus with stage 3a chronic kidney disease, with long-term current use of insulin ([facility]) Place 1 sensor to back of upper arm every 15 days. Use to monitor blood sugar continuously (Freestyle Clif 3 Plus) 2 Each 0[address] Active aspirin [address] tablet TOME MONA TABLETA TODOS LOS D 90 Tablet 2 024 Active lancets (FREESTYLE LANCETS) 28 gaugeIndications: Type 2 diabetes mellitus with stage 3a chronic kidney disease, with long-term current use of insulin ([facility]) Use to test blood glucose three times daily. (Freestyle Lancets) 100 Each 024 Active blood sugar diagnostic stripsIndications :Type 2 diabetes mellitus with stage 3a chronic kidney disease, with long-term current use of insulin ([facility]) Use to test blood glucose three times daily. (Freestyle Lite) 100 Each 024 Active apixaban (ELIQUIS) 5 mg tabIndications:Di lated cardiomyopathy ([facility]),Implanta ble cardioverter-defi brillator (ICD) in situ Take 1 Tablet by mouth 2 (two) times Daily 180 Tablet 1 025 Active empagliflozin (JARDIANCE) 25 mg tabIndications:Ty pe 2 diabetes mellitus with stage 3b chronic kidney disease, with long-term current use of insulin ([facility]),Stage 3 chronic kidney disease due to type 2 diabetes mellitus ([facility]),Heart failure with reduced ejection fraction, NYHA class III (CMS & HHS-HCC) Take 1 Tablet by mouth [...] for muscle spasms 20 Tablet 025 Active omeprazole (PRILOSEC) [address] capsule TOME MONA CAPSULA TODOS LOS [place] EN LA MANANA ANTES DEL DESAYUNO 90 Capsule 1 025 Active cholecalciferol (VITAMIN D-3) 50 mcg (2,000 unit) capsule TOME 1 CAPSULA POR VIA ORAL TODOS [place]. 90 Capsule 1 025 Active BD LISA 2ND GEN [...] mcg tabIndications:Ch ronic kidney disease, stage 3b ([facility]) TOME 1 TABLETA POR VIA ORAL TODOS LOS [place] 90 Tablet 1 025 Active gabapentin (NEURONTIN) 600 mg tabletIndications :Fibromyalgia TOME MONA TABLETA ALISTAIR VECES AL ANANTH 270 Tablet 025 Active loratadine (CLARITIN) 10 mg tablet TOME 1 TABLETA POR VIA ORAL TODOS LOS [place] CUANDO SEA NECESARIO FOR ALLERGIES 90 Tablet 025 Active zolpidem (AMBIEN) 5 mg tabletIndications :Insomnia, unspecified type Take 1 Tablet by mouth nightly at bedtime NEEDED FOR SLEEP!!. Max Daily Amount: 1 Tablet 30 Tablet 025 Active gabapentin (NEURONTIN) 600 mg tabletIndications :Fibromyalgia TOME MONA TABLETA ALISTAIR VECES AL ANANTH. 270 Tablet 025 2024 Discontinued loratadine (CLARITIN) 10 mg tablet TOME 1 TABLETA POR VIA ORAL TODOS [place] CUANDO SEA NECESARIO FOR ALLERGIES 90 Tablet 025 2024 Discontinued zolpidem (AMBIEN) 5 mg tabletIndications :Insomnia, unspecified type Take 1 Tablet by mouth nightly at bedtime NEEDED FOR SLEEP!!. 30 Tablet 025 2024 Discontinued(R eorder (E-Cancel Not Sent)) Active Problems Problem Noted Date Diagnosed Date Chronic atrial fibrillation ([facility]) 03/04 Overview (03/31/2025): On ICD Carpal tunnel syndrome of right wrist 09/30/2024 Degenerative tear of medial meniscus of right kn ee 10/11/2023 History of appendectomy 12/30/2022 12/31/19 23 Hx of cholecystectomy 12/30/2022 12/30/2022 ICD (implantable cardioverter-defibrillator) in place 12/30/2022 12/30/2022 Overview (06/21/2024): 06/14/24 at [facility] Plan ~Labs today ~Refer back [...] messaged for pt's arm MRI 05/12/24 at [facility] ~24-Holter monitor to assess PVC burden 04/08/24 at [facility] ~Reduce Lasix to 20 mg as needed weight gain greater than 3 pounds / 1-2 days, increased leg swelling, increased shortness of breath ~Stop carvedilol 12.5 mg twice daily and start metoprolol XL 100 mg daily ~Pt encouraged to hydrate in the range of 8 glasses fluid daily ~Repeat Sleep study in-lab ~Message to Device to assess PVC burden 03/04/24 at [facility] Plan: - increase entresto to 97-103mg BID - pt will monitor wt at home and repeat labs in a week, if wt has not improved would double lasix dose for 3-4 days - f/u in 1 months - would repeat ekg and if QRS wide with LBBB pattern ask EP if we need to upgrade to CENA given low EF and recent admission with decrease in GDMT 08/25/23 at [facility] Cardiology Shared Clinical Summary 1. [...] reduced e jection fraction, NYHA class III (CMS & HHS-HCC) 12/30/2022 12/30/2022 Overview (11/24/2024): 10/04/24 at [facility] No medication changes Refer to EP for consult on PVC ablation Encouraged to try to hydrate with at least 64 oz fluid daily Repeat labs including follow up for iron infusion 08/01/24 at [facility] NYHA class III stage C [...] exercise test for risk stratification 06/14/24 at [facility] Labs today Refer back to EP for [...] messaged for pt's arm MRI 05/12/24 at [facility] 24-Holter monitor to assess PVC burden 04/08/24 at [facility] Reduce Lasix to 20 mg as needed weight gain greater than 3 pounds / 1-2 days, increased leg swelling, increased shortness of breath Stop carvedilol 12.5 mg twice daily and start metoprolol XL 100 mg daily Pt encouraged to hydrate in the range of 8 glasses fluid daily Repeat Sleep study in-lab Message to Device to assess PVC burden 03/04/24 at [facility]: increase entresto to 97-103mg BID Pt will monitor wt at home and repeat labs in a week, if wt has not improved would double lasix dose for 3-4 days F/u in 1 months - would repeat ekg and if QRS wide with LBBB pattern ask EP if we need to upgrade to CENA given low EF and recent admission with decrease in GDMT 08/25/23 at [facility] Cardiology Shared Clinical Summary 1. [...] Post op right lobectomy DOS 11/10/22 at [facility]. Anemia of chronic renal failure 11/30/2020 12/30/2022 Dilated cardiomyopathy ([facility]) 12/30/2022 Overview (11/24/2024): 10/04/24 at [facility] No medication changes Refer to EP for consult on PVC ablation Encouraged to try to hydrate with at least 64 oz fluid daily Repeat labs including follow up for iron infusion 08/01/24 at [facility] NYHA class III stage C [...] exercise test for risk stratification 06/14/24 at [facility] Labs today Refer back to EP [...] messaged for pt's arm MRI 05/12/24 at [facility] 24-Holter monitor to assess PVC burden 04/08/24 at [facility] Reduce Lasix to 20 mg as needed weight gain greater than 3 pounds / 1-2 days, increased leg swelling, increased shortness of breath Stop carvedilol 12.5 mg twice daily and start metoprolol XL 100 mg daily Pt encouraged to hydrate in the range of 8 glasses fluid daily Repeat Sleep study in-lab Message to Device to assess PVC burden 03/04/24 at [facility] Plan: increase entresto to 97-103mg BID Pt will monitor wt at home and repeat labs in a week, if wt has not improved would double lasix dose for 3-4 days F/u in 1 months - would repeat ekg and if QRS wide with LBBB pattern ask EP if we need to upgrade to CENA given low EF and recent admission with decrease in GDMT 08/25/23 at [facility] Cardiology Shared Clinical Summary 1. [...] se due to type 2 diabetes mellitus ([facility]) 08/17/2018 12/30/2022 Overview (01/27/2025): 01/06/25 [facility] CKD III, renal function back to baseline, appears euvolemic, continue current dose of diuretics, low-sodium diet, continue current medications including SGLT-2 inhibitor A1c <7% On allopurinol, does not want take prednisone Asymptomatic hypotension, secondary to meds 08/26/24 at [facility] CKDIII - renal function back to baseline. Serum creatinine 1.28. continue current dose of diuretics. DM - continue SGLT-2 inhibitor, no changes made, maintain A1c <7%, avoid NSAIDs Gout - on allopurinol - does not want to take prednisone, encouraged to follow- up with rheumatology. 04/25/24 at [facility] - Dr. Omayra Chapin Echocardiogram showed [...] Referred by Endo to Dr Cornel Cutler ([facility]). Latest Cr 06/06/19 1.14, Hgb 10.3 Constipation 01/21/2018 12/30/2022 Eczema 01/21/2018 12/30/2022 Gout 01/21/2018 12/30/2022 Overview (12/30/2022): 2017 Left toe 2018 Left toe Implantable cardioverter-defibrillator (ICD) in situ 01/21/2018 12/30/2022 Overview (10/30/2023): [facility] - 08/25/23 Cardiology Shared Clinical [...] disease, with long-term current use of insulin ([facility]) 08/03/2007 12/30/2022 Overview (01/27/2025): DM dx: ~[phone] per patient reports Glucometer: [employer] Clif 3 Plus Current Diabetes RX: Jardiance 25 mg daily every morning (CKD/HF) MARCO-I/ARB: Entresto 24/26 mg twice daily (prescribed by [facility]) Statin: Atorvastatin 40 mg daily at bedtime (prescribed by [facility]) Pneumococcal vaccine: PPSV23 (02/16/09) Diabetes foot exam: 12/20/24 at [facility] Patient with symptoms of arthritic pain [...] by PCP Diabetes retinal exam: 02/09/24 at [facility] No retinopathy Meibomian Gland Dysfunction OU. Hot compresses for 10 minutes 4 times daily. Monitor. Pterygium OS. Mildly inflammed pterygium, consider Lotemax if irritation worsens. Resolved Problems Problem Noted Date Diagnosed Date Resolved Date Obesity 12/30/2022 12/30/2022 09/28/2024 Chronic systolic heart failu re ([facility]) 11/30/2020 12/30/2022 10/28/2023 Overview (12/30/2022): Dr. Jens Rosas, [facility] cardiology Dr. Jens Rosas, [facility] Diabetic nephropathy associa tanisha with type 2 diabetes mellitus ([facility]) 11/30/2020 12/30/20222023 Encounters Date Type Department Care Team Description 03/13/2025 Interim Notes [address] [phone] Didier Friend ID 01/27/2025 2:40 PM EDT Office Visit [address] [phone] Reza Britt, PharmD from Last 3 Months [...] Care Team (Late st Contact Info) Description 05/01/2025 2:20 PM EDT Office Visit [facility] [address] [place] [phone] Reza Britt, PharmD [address] [place] [address] Health Maintenance Due Date Last Done Comments Dental Examination 1955 Medicare Annual Wellness Visit 1974 CT Colonography 2001 FIT/gFOBT 2001 Fecal DNA 2001 Flexible Sigmoidoscopy 2001 Imm-Pneumococcal 50+ (2 of 2 - PCV) 02/16/2010 02/16/2009 Bone Density Screening 2021 Imm-Zoster, Recombinant (2 of 2) 04/23/2023 02/27/20 Urine Albumin Creatinine Rat io Screening 02/27/2024 02/26/2023 Lipid Screening 10/27/2024 10/28/2023, 12/03, 09/30/2021 Hemoglobin A1c 12/19/2024 06/21/2024, 10/02, 12/30/2022, Additional history exists Depression Monitoring 12/28/2024 09/30/2024 , 03/14/2024, 10/09/2023, Additional history exists Retinopathy Screening 02/08/2025 02/09/2024 [id number] ( - season) 2025 021, 09/30/2020 Imm-Influenza (#1) 2025 10/17/2019, 1 , 06/07/2015, Additional history exists Falls Prevention 05/30/2025 [...] Procedure Name Priority Date/Time Associated Diagnosis Comments OTHER ORDERS SCANNED DOCUMENT 04/06/2025 3:00 AM EDT OTHER ORDERS SCANNED DOCUMENT 03/28/2025 3:00 AM EDT REFERRAL SCANNED DOCUMENT 03/22/2025 3:00 AM EDT REFERRAL SCANNED DOCUMENT 03/21/2025 3:00 AM EDT REFERRAL SCANNED DOCUMENT 03/06/2025 3:00 AM EDT REFERRAL SCANNED DOCUMENT 02/20/2025 3:00 AM EDT GLUCOSE, BLOOD BY GLUCOSE MONITORING DEVICE (CLIA WAIVED)POCT Routine 01/27/2025 5:12 PM EDT Type 2 diabetes mellitus with stage 3b chronic kidney disease, with long-term current use of insulin ([facility]) REFERRAL TO ORTHOPEDICS Routine 01/23/2025 3:00 AM EDT Right wrist pain Weakness of right arm REFERRAL TO PODIATRY Routine 12/20/2024 3:00 AM EDT Type 2 diabetes mellitus with stage 3b chronic kidney disease, with long-term current use of insulin ([facility]) COMPREHENSIVE METABOLIC PANEL Routine 06/21/2024 2:31 PM EST Type 2 diabetes mellitus with stage 3b chronic kidney disease, with long-term current use of insulin ([facility]) HGA1C W/EAG Routine 06/21/2024 2:31 PM EST Type 2 diabetes mellitus with stage 3b chronic kidney disease, with long-term current use of insulin ([facility]) REFERRAL FOR MAMMOGRAM Routine 3:00 AM EDT Screening mammogram, encounter for REFERRAL TO DIABETIC RETINAL EXAM Routine 02/09/2024 3:00 AM EDT Type 2 diabetes mellitus with stage 3a chronic kidney disease, with long-term current use of insulin ([facility]) LIPIDS W RFLX TO DIRECT LDL Routine 10/28/2023 10:18 AM EDT Preoperative clearance Type 2 diabetes mellitus with stage 3b chronic kidney disease, with long-term current use of insulin ([facility]) MICROALBUMIN/CREATININ E RATIO, URINE, RANDOM Routine 02/26/2023 2:03 PM EDT Type 2 diabetes mellitus with stage 3b chronic kidney disease, with long-term current use of insulin ([facility]) HEPATITIS C AB W/RFLX HCV RNA, QT, RT PCR Routine 12/30/2022 10:40 AM EDT Encounter to establish care from Last 3 Months or Most Recently Relevant to Health Maintenance Results * OTHER ORDERS SCANNED DOCUMENT (04/06/2025 3:00 AM EDT) Only the most recent of2 resultswithin the time period is included. 04/06/2025 3:00 AM EDT [employer] PA-C SCAN OTHER ORDERS Final Resu lt * REFERRAL SCANNED DOCUMENT (03/22/2025 3:00 AM EDT) Only the most recent of4 resultswithin the time period is included. 03/22/2025 3:00 AM EDT Result [facility] [employer] PA-C SCAN REFERRAL Final Result * (ABNORMAL) GLUCOSE, BLOOD BY GLUCOSE MONITORING DEVICE (CLIA WAIVED)POCT Routine (01/27/2025 5:12 PM EDT) GLUCOSE 162(A) 70 - 100 mg/dL [facility] POCT Capillary Blood Blood / Unknown 5:12 PM EDT Result [facility] Reza Britt PharmD LAB - BLOOD DRAW Final Re sult [facility] POCT * REFERRAL TO ORTHOPEDICS (01/23/2025 3:00 AM EDT) 01/23/2025 3:00 AM EDT [employer] PA-C REFERRAL Final Result * REFERRAL TO PODIATRY (12/20/2024 3:00 AM EDT) 12/20/2024 3:00 AM EDT Reza Britt PharmD REFERRAL Final Res ult * (ABNORMAL) HGA1C W/EAG (06/21/2024 2:31 PM EST) HEMOGLOBIN A1C 6.3(H) <5.7 % of total Hgb [facility] Comment: For someone without known diabetes, a [...] diabetes for children. EAG (MG/DL) 134 mg/dL [facility] EAG (MMOL/L) 7.4 mmol/L [facility] Blood Blood / Unknown 06/21/2024 2 :31 PM EST 06/21/2024 2:32 PM EST Narrative [facility] - 06/22/2024 12:48 PM EST FASTING:NO Cordelia Moraes PA-C LAB - BLOOD DRAW Final Resul t [facility] [address] [place] [address], [facility] [address] [place] [phone] * (ABNORMAL) COMPREHENSIVE METABOLIC PANEL (06/21/2024 2:31 PM EST) GLUCOSE 101 65 - 139 mg/dL [facility] Comment: Non-fasting reference interval UREA NITROGEN (BUN) 24 7 - 25 mg/dL [facility] CREATININE (blood) 1.66(H) 0.50 - 1.05 mg/dL [facility] EGFR 33(L) > OR = 60 mL/min/1. 73m2 [facility] BUN/CREATININE RATIO 14 6 - 22 (calc) [facility] SODIUM 134(L) 135 - 146 mmol/L [facility] POTASSIUM 4.4 3.5 - 5.3 mmol/L [facility] CHLORIDE 94(L) 98 - 110 mmol/L [facility] CARBON DIOXIDE 28 20 - 32 mmol/L [facility] CALCIUM 9.6 8.6 - 10.4 mg/dL [facility] PROTEIN, TOTAL 7.6 6.1 - 8.1 g/dL [facility] ALBUMIN 4.3 3.6 - 5.1 g/dL [facility] GLOBULIN 3.3 1.9 - 3.7 g/dL (calc) [facility] ALBUMIN/GLOBULI N RATIO 1.3 1.0 - 2.5 (calc) [facility] BILIRUBIN, TOTAL 0.4 0.2 - 1.2 mg/dL [facility] ALKALINE PHOSPHATASE 79 37 - 153 U/L [facility] AST 14 10 - 35 U/L [facility] ALT 10 6 - 29 U/L [facility] Blood Blood / Unknown 06/21/2024 2 :31 PM EST 06/21/2024 2:32 PM EST Narrative [facility] - 06/22/2024 12:48 PM EST FASTING:NO Cordelia Moraes PA-C LAB - BLOOD DRAW Edited Resu lt - Final [facility] [address] [address], [facility] [address] [phone] * REFERRAL FOR MAMMOGRAM SCREENING (04/27/2024 3:00 [...] AM EDT) CHOLESTEROL, TOTAL 131 <200 mg/dL [facility] HDL CHOLESTEROL 35(L) > OR = 50 mg/dL [facility] TRIGLYCERIDES 158(H) <150 mg/dL [facility] LDL-CHOLESTEROL 72 99 mg/dL (calc) [facility] Comment: Reference range: <100 Desirable range <100 mg/dL for primary prevention; <70 mg/dL for patients with CHD or diabetic patients with > or = 2 CHD risk factors. LDL-C is now calculated using the Viky calculation, which is a validated novel method providing better accuracy than the Friedewald equation in the estimation of LDL-C. Len GARCIA et al. JENNIFER. 2013;310(19): 8709-9986 (http://education.[employer]/faq/HTP172) CHOL/HDLC RATIO 3.7 <5.0 (calc) [facility] NON-HDL CHOLESTEROL 96 <130 mg/dL (calc) [employer] [facility] Comment: For patients with diabetes plus 1 major ASCVD risk factor, treating to a non-HDL-C goal of <100 mg/dL (LDL-C of <70 mg/dL) is considered a therapeutic option. Blood Blood / Unknown 10/28/2023 1 0:18 AM EDT 10/28/2023 10:18 AM EDT Narrative [facility] - 10/29/2023 9:14 AM EDT FASTING:YES us Cordelia Moraes PA-C LAB - BLOOD DRAW Final Resul t [facility] [address] [address], [employer] [facility] [address] [place] [address] * MICROALBUMIN/CREATININE RATIO, URINE, RANDOM (02/26/2023 2:03 PM EDT) CREATININE, RANDOM URINE 37 20 - 275 mg/dL [facility] MICROALBUMIN <0.2 mg/dL [facility] Comment: Reference Range Not established MICROALBUMIN/CREA TININE RATIO, RANDOM URINE NOTE <30 [employer] [facility] Comment: NOTE: The urine albumin value is [...] EDT 02/26/2023 2:04 PM EDT Richa Atkins [employer] URINE AMBULATORY Final Resul t Performing Organization Address [facility] de Phone Number [facility] [address] [place] [id number], [facility] [address] [place] [phone] * Hep C Antibody with Reflex HCV RNA (12/30/2022 10:40 AM EDT) HEPATITIS C ANTIBODY NON-REACT OBI NON-REACT OBI [facility] SIGNAL TO CUT-OFF 0.11 <1.00 [facility] Comment: HCV antibody was non-reactive. There is no laboratory evidence of HCV infection. In most cases, no further action is required. However, if recent HCV exposure is suspected, a test for HCV RNA (test code 21001) is suggested. For additional information please refer to http://education.[employer]/faq/BAQ59g3 (This link is being provided for informational/ educational purposes only.) Blood Blood / Unknown 12/30/2022 1 0:40 AM EDT 12/30/2022 10:40 AM EDT Narrative [facility] - 12/31/2022 7:57 AM EDT FASTING:YES Cordelia Moraes PA-C LAB - BLOOD DRAW Edited Resu lt - Final Performing Organization Address City/[facility]/ZIP Co de Phone Number [employer] [facility] [address] [address], [employer] [facility] [address] [place] [address] from Last 3 Months or Most Recently Relevant to Health Maintenance Insurance [facility] Care Teams Die Forger Relationship Specialty Start Date End Date Cordelia Moraes PA-C [address] [place] [address] PCP - General Internal Medicine 09/05/22
--- OUTSIDE RECORDS SUMMARY | 2025-04-22 18:25 | XMS_ITS | Encounter Summary ---
Author Organization [facility] Address [address] [place] [address] Care Team Providers Care Computer Systems Auditor Name Role Phone Catherine Cuellar MD Primary Care Provider Obi Whitfield MD Primary Care Provider Macy Hanks MD Primary Care Prov ider [facility], Pcp Primary Care Provider [facility] Encounter Details Date Type Department Care Team Description 02/07/2019 SCAN Medical Records [address] [place] [address] Abstract, Provider Social History Tobacco Use Types [...] on filedocumented in this encounter Care Teams Computer Systems Auditor Relationship Specialty Start Date End Date Catherine Cuellar MD PCP - General Internal Medicine 10/01/17 01/08/21 Obi Ricketts MD PCP - General Internal Medicine 01/09/21 03/03/22 Macy Mobley MD [address] [place], [place] [phone] PCP - General Internal Medicine 03/04/22 06/02/23 [facility], Pcp [address] [place] [address] PCP - General Internal Medicine 06/03/23 documented as of this encounter
--- OUTSIDE RECORDS SUMMARY | 2025-04-22 18:25 | XMS_ITS | Encounter Summary ---
Author Organization [facility] Address [address] [place] [address] Care Team Providers Care Data Entry Machine Operator Name Role Phone Catherine Cuellar MD Primary Care Provider Obi Whitfield MD Primary Care Provider Macy Hanks MD Primary Care Prov ider [facility], Pcp Primary Care Provider [facility] Encounter Details Date Type Department Care Team Description 02/08/2018 Transfer Records Medical Records [address] [place] [address] Abstract, Provider Social History Tobacco Use Types [...] on filedocumented in this encounter Care Teams Data Entry Machine Operator Relationship Specialty Start Date End Date Catherine Cuellar MD PCP - General Internal Medicine 10/01/17 01/08/21 Obi Ricketts MD PCP - General Internal Medicine 01/09/21 03/03/22 Macy Mobley MD [address] [place] [address] PCP - General Internal Medicine 03/04/22 06/02/23 Community, Pcp [address] [place] [address] PCP - General Internal Medicine 06/03/23 documented as of this encounter
--- OUTSIDE RECORDS SUMMARY | 2025-04-22 18:25 | XMS_ITS | Encounter Summary ---
Author Organization [facility] Address [address] [place] [address] Care Team Providers Care Rack Puller Name Role Phone Catherine Cuellar MD Primary Care Provider Obi Whitfield MD Primary Care Provider Macy Hanks MD Primary Care Prov ider [facility], Pcp Primary Care Provider Unavailabl e Reason for Visit * Reason Onset Date Comments refill request 03/19/2018 Encounter Details Date Type Department Care Team Description 03/19/2018 Refill Adult Medicine [address] [address] Catherine Cuellar MD refill request Social History [...] encounter Miscellaneous Notes * Telephone Encounter - Martita Pachceo - 03/23/2018 1:54 PM EDT Pt calling requesting call back from nursing * Telephone Encounter - Catherine Cuellar MD - 03/20/2018 1:03 AM EDT Per her last visit in January, she wanted to taper off zolpidem because this was causing weight problems, hence the tapering schedule (documented historically) I Rxed trazodone for her instead. I see that she was still continuing to refill the zolpidem monthly (last Rx 02/23/18 by Ioana Escobedo - prob her former PCP) I decline to take over Rxing Ambien. If she needs this refilled, will need to see me or Jaymie in theoffice. Pls have someone ask her (in Ethiopian) if she is taking BOTH zolpidem and trazodone - remind her that we had discussed tapering off the zolpidem slowly * Telephone Encounter - Palmira Alicia M.A. - 03/19/2018 3:57 PM EDT Patient advised this will need to be reviewed by Dr. Cuellar on Thursday * Telephone Encounter - Tish Valentino APRN - 03/19/2018 3:35 PM EDT New patient, looks like we've never presribed (historic), will need to be deferred to PCP for consideration especially since this is higher dose than recommended for women * Telephone Encounter - Palmira Alicia M.A. - 03/19/2018 2:25 PM EDT Not on contract ? D/c'd * Telephone Encounter - Sussy Westfall - 03/19/2018 2:15 PM EDT Patient would like script to be: E-PRESCRIBED/FAXED TO PHARMACY WHEN WAS THE PATIENT'S LAST APPOINTMENT IN ADULT MEDICINE? 01/28/2018 WHEN WAS THE LAST TIME THE PATIENT SAW THEIR PCP? Same as above Does patient have an upcoming appointment? Yes 05/03/2018 (THE MEDICATION REQUESTED IS ON THE MED [...] N/A Patients current insurance carrier is: Payor: [employer] FFS / Plan: [employer] / Product Type: MEDICAID RISK documented in this encounter Plan of Treatment Not on file documented as of this encounter Visit Diagnoses Not on filedocumented in this encounter Care Teams Rack Puller Relationship Specialty Start Date End Date Catherine Cuellar MD PCP - General Internal Medicine 10/01/17 01/08/21 Obi Ricketts MD PCP - General Internal Medicine 01/09/21 03/03/22 Macy Mobley MD [address] [place] [address] PCP - General Internal Medicine 03/04/22 06/02/23 [facility] [address] [place] [address] PCP - General Internal Medicine 06/03/23 documented as of this encounter
--- OUTSIDE RECORDS SUMMARY | 2025-04-22 18:25 | XMS_ITS | Encounter Summary ---
Author Organization [facility] Address [address] [place] [address] Care Team Providers Care Housing Development Specialist Name Role Phone Catherine Cuellar MD Primary Care Provider Obi Whitfield MD Primary Care Provider Macy Hanks MD Primary Care Prov ider [facility] Pcp Primary Care [facility] Encounter Details Date Type Department Care Team Description 10/09/2020 Refill Gastroenterology - [place] [address] [place] [phone] Alex Mars MD [address] [place] [address] Social History Tobacco Use Types Packs/Day Years [...] on filedocumented in this encounter Care Teams Housing Development Specialist Relationship Specialty Start Date End Date Catherine Cuellar MD PCP - General Internal Medicine 10/01/17 01/08/21 Obi Ricketts MD PCP - General Internal Medicine 01/09/21 03/03/22 Macy Mobley MD [address] [place] [address] PCP - General Internal Medicine 03/04/22 06/02/23 [facility], Pcp [address] [place] [address] PCP - General Internal Medicine 06/03/23 documented as of this encounter
--- OUTSIDE RECORDS SUMMARY | 2025-04-22 18:25 | XMS_ITS | Encounter Summary ---
Author Organization [facility] Address [address] [place] [address] Care Team Providers Care Wheat Buyer Name Role Phone Catherine Cuellar MD Primary Care Provider Obi Whitfield MD Primary Care Provider Macy Hanks MD Primary Care Prov ider [facility], Pcp Primary Care Provider [facility] Encounter Details Date Type Department Care Team Description 12/10/2018 [facility] Medical Records [address] [place] [address] Abstract, Provider Social History Tobacco Use Types [...] on filedocumented in this encounter Care Teams Wheat Buyer Relationship Specialty Start Date End Date Catherine Cuellar MD PCP - General Internal Medicine 10/01/17 01/08/21 Obi Ricketts MD PCP - General Internal Medicine 01/09/21 03/03/22 Macy Mobley MD [address] [place] [address] PCP - General Internal Medicine 03/04/22 06/02/23 [facility], Pcp [address] [place] [address] PCP - General Internal Medicine 06/03/23 documented as of this encounter
--- OUTSIDE RECORDS SUMMARY | 2025-04-22 18:25 | XMS_ITS | Encounter Summary ---
Author Organization [facility] Address [address] [place] [address] Care Team Providers Care Med Spa Manager Name Role Phone Catherine Cuellar MD Primary Care Provider Obi Whitfield MD Primary Care Provider Macy Hanks MD Primary Care Prov ider [facility], Pcp Primary Care Provider Unavailabl e Reason for Visit * Reason Onset Date Comments TEST RESULTS 05/18/2019 Encounter Details Date Type Department Care Team Description 05/18/2019 Telephone Adult [address] [address] Catherine Cuellar MD TEST RESULTS Social History Tobacco Use Types Packs/Day Years [...] encounter Miscellaneous Notes * Telephone Encounter - Nahed Alonzo - 05/18/2019 2:51 PM EDT Patient returning call only speaks zimbabwean * Telephone Encounter - Daniele Langley L.P.N. - 05/18/2019 2:41 PM EDT Called peewee left message for her to call nurse working with Dr. Cuellar See result note documented in this encounter Plan of Treatment Not on file documented as of this encounter Visit Diagnoses Not on filedocumented in this encounter Care Teams Med Spa Manager Relationship Specialty Start Date End Date Catherine Cuellar MD PCP - General Internal Medicine 10/01/17 01/08/21 Obi Ricketts MD PCP - General Internal Medicine 01/09/21 03/03/22 Macy Mobley MD [address] [place] [address] PCP - General Internal Medicine 03/04/22 06/02/23 [facility] [address] [place] [address] PCP - General Internal Medicine 06/03/23 documented as of this encounter
--- OUTSIDE RECORDS SUMMARY | 2025-04-22 18:25 | XMS_ITS | Encounter Summary ---
Author Organization [facility] Address [address] [place] [address] Care Team Providers Care Pipe Setter Name Role Phone Catherine Cuellar MD Primary Care Provider Obi Whitfield MD Primary Care Provider Macy Hanks MD Primary Care Prov ider [facility], Pcp Primary Care Provider [facility] Encounter Details Date Type Department Care Team Description 10/19/2017 Dry Wall Plasterer Report Medical Records [address] [place] [address] Abstract, Provider Social History Tobacco Use Types Packs/Day Years Used Date Smoking Tobacco: Never Assessed Sex Assigned at Date Recorded Not on file Job Start Date Occupation Industry Not on file Not on file Not on file documented as of this encounter Plan of Treatment Not on file documented as of this encounter Visit Diagnoses Not on filedocumented in this encounter Care Teams Pipe Setter Relationship Specialty Start Date End Date Catherine Cuellar MD PCP - General Internal Medicine 10/01/17 01/08/21 Obi Ricketts MD PCP - General Internal Medicine 01/09/21 03/03/22 Macy Mobley MD [address] [place] [phone] PCP - General Internal Medicine 03/04/22 06/02/23 [facility], Pcp [address] [place] [address] PCP - General Internal Medicine 06/03/23 documented as of this encounter
--- OUTSIDE RECORDS SUMMARY | 2025-04-22 18:25 | XMS_ITS | Encounter Summary ---
Author Organization [facility] Address [address] [place] [address] Care Team Providers Care Surface Supervisor Name Role Phone Catherine Cuellar MD Primary Care Provider Obi Whitfield MD Primary Care Provider Macy Hanks MD Primary Care Prov ider [facility] Pcp Primary Care Provider [facility] Encounter Details Date Type Department Care Team Description 01/06/2019 Personal Finance Instructor Report Medical Records [address] [place] [address] Tavares Cutler MD Social History Tobacco Use [...] on filedocumented in this encounter Care Teams Surface Supervisor Relationship Specialty Start Date End Date Catherine Cuellar MD PCP - General Internal Medicine 10/01/17 01/08/21 Obi Ricketts MD PCP - General Internal Medicine 01/09/21 03/03/22 Macy Mobley MD [address] [place] [address] PCP - General Internal Medicine 03/04/22 06/02/23 [facility], Pcp [address] [place] [address] PCP - General Internal Medicine 06/03/23 documented as of this encounter
--- OUTSIDE RECORDS SUMMARY | 2025-04-22 18:25 | XMS_ITS | Encounter Summary ---
Author Organization [facility] Address [address] [place] [address] Care Team Providers Care Measuring Machine Operator Name Role Phone Catherine Cuellar MD Primary Care Provider Obi Whitfield MD Primary Care Provider Macy Hanks MD Primary Care Prov ider [facility], Pcp Primary Care Provider Unavailabl e Reason for Visit * Reason Onset Date Comments Medical Records 12/16/2017 Encounter Details Date Type Department Care Team Description 12/16/2017 Telephone OBGYN - [place] [address] [place], [place] [phone] Pedro [place] MD [address] [place], [place] [phone] Medical Records Social History Tobacco Use Types Packs/Day Years [...] encounter Miscellaneous Notes * Telephone Encounter - Eleanor Bravo - 01/07/2018 1:52 PM EDT Radiology/mammo notes rec'd via fax (does not state from which facility); placed in Dr. Byers's bin and copy sent to scan * Telephone Encounter - Neela Hernández - 12/16/2017 1:48 PM EDT Pt filled out KAMALJIT to get records from [facility] and [facility] documented in this encounter Plan of Treatment Not on file documented as of this encounter Visit Diagnoses Not on filedocumented in this encounter Care Teams Measuring Machine Operator Relationship Specialty Start Date End Date Catherine Cuellar MD PCP - General Internal Medicine 10/01/17 01/08/21 Obi Ricketts MD PCP - General Internal Medicine 01/09/21 03/03/22 Raoul Rodríguez, Macy Dailey MD [address] [place] [address] PCP - General Internal Medicine 03/04/22 06/02/23 [facility], [address] [address] PCP - General Internal Medicine 06/03/23 documented as of this encounter
--- OUTSIDE RECORDS SUMMARY | 2025-04-22 18:25 | XMS_ITS | Encounter Summary ---
Author Organization [facility] Address [address] [place] [address] Care Team Providers Care Blocker Automatic Name Role Phone Catherine Cuellar MD Primary Care Provider Obi Whitfield MD Primary Care Provider Macy Hanks MD Primary Care Prov ider [facility], Pcp Primary Care Provider Unavailabl e Reason for Visit * Reason Onset Date Comments PT-1 04/08/2018 Encounter Details Date Type Department Care Team Description 04/08/2018 Telephone Adult Medicine [address] [address] Catherine Cuellar MD PT-1 Social History Tobacco [...] Encounter - Dee Dee Mendez M.A. - 05/04/2018 11:24 AM EDT Tracking #[id number] * Telephone Encounter - Anisa Williamson - 04/30/2018 4:47 PM EDT Patient checking status * Telephone Encounter - Amparo Gutierrez - 04/08/2018 3:12 PM EDT 12/08/17 [facility] patients will now be included in this workflow: Verify and document patients [place] Health insurance ID # (NOT [facility] ID): [id number] Payor: [facility] / Plan: [facility] [employer] / Product Type: MEDICAID RISK Patient mailing address: [address] [place] [address] [place] [address] Pt. demographics verified? YES If not accurate, update registration. Is this a NEW request or a RENEWAL? renewal Name of treating facility: [facility] Name (first & last) of treating provider? required : Dr Catherine Cuellar What is the medical reason why the patient is seeing the above provider? Patient Active Problem List Diagnosis Code ??? 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 Gout M10.9 ??? Plantar fasciitis of left foot M72.2 ??? Depression F32.9 ??? Diabetic peripheral neuropathy (HCC) E11.42 ??? Chronic low back pain M54.5, G89.29 ??? Cardiac defibrillator in place Z95.810 ??? Constipation K59.00 ??? Eczema L30.9 ??? Fibromyalgia M79.7 ??? Hypercholesteremia E78.00 ??? HTN (hypertension) I10 ??? GERD (gastroesophageal reflux disease) K21.9 ??? Dilated cardiomyopathy (HCC) I42.0 ??? Insomnia G47.00 ??? Herpes zoster B02.9 ??? Anemia D64.9 ??? 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 CHF (congestive heart failure) (HCC) I50.9 Address/Zip code for treating provider: [address] [place] [address] Phone # for treating provider: [phone] Is the provider in the [facility] (do they accept [place] [employer] insurance)? YES What specialtly is this provider? Adult medicine When is the visit scheduled for? 05-03-18 How often you will be seeing this particular provider? 6 times yearly Do you have friends or family who can transport you to this visit? NO If yes, do not complete request. Is there anything stopping you from using public transportation? If yes, explain. : YES Is there a medical reason (diagnosis) why you are unable to use public transportation? If yes, explain: yes - anxiety fear of getting lost Do you need a wheelchair van? NO [...] on filedocumented in this encounter Care Teams Blocker Automatic Relationship Specialty Start Date End Date Catherine Cuellar MD PCP - General Internal Medicine 10/01/17 01/08/21 Obi Ricketts MD PCP - General Internal Medicine 01/09/21 03/03/22 Macy Mobley MD [address] [place] [address] PCP - General Internal Medicine 03/04/22 06/02/23 [facility] [address] [place] [address] PCP - General Internal Medicine 06/03/23 documented as of this encounter
--- OUTSIDE RECORDS SUMMARY | 2025-04-22 18:25 | XMS_ITS | Clinical Summary ---
Author Organization [address] [place] [address] Address [address] [place] [address] Phone Care Team Providers Care Pit Crane Operator Name Role Phone Cordelia Moraes Primary Care [...] 1 (one) time each day. 4 Active diclofenac (Voltaren Arthritis Pain) 1 % topical gel Apply 4 g topically 2 (two) times a day. 240 g 1 5 05/21/20 25 Active Active Problems Problem Noted Date Diagnosed Date Chronic HFrEF (heart failure with reduced ejection fraction) ([facility] V24, [facility] V28) 08/01/2024 Overview (08/01/2024): Dr. Jens Rosas, [facility] cardiology Dilated cardiomyopathy ([facility] V24, [facility] V28 ) 08/01/2024 Overview (08/01/2024): 05/2017 EF 40% Dr. Jens Rosas -[facility] cardiology. 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 Referred by Josue to Dr Cornel Cutler ([facility]). Latest Cr 06/06/19 1.14, Hgb 10.3 Anemia 01/21/2018 Overview (08/01/2024): Chronic. Latest Hgb 10.3 (06/06/19) Chronic low back pain 01/21/2018 Constipation 01/21/2018 Depression 01/21/2018 Diabetic peripheral neuropathy ([facility] V24, [facility] V28) 01/21/2018 Eczema 01/21/2018 Gout 01/21/2018 Overview (08/01/2024): 2018 Left toe Herpes zoster 01/21/2018 Overview (08/01/2024): 02/2016 ICD (implantable cardioverter-defibrillator) in place 01/21/2018 Overview (08/01/2024): For primary prevention Insomnia 01/21/2018 Plantar fasciitis of left foot 01/21/2018 Type 2 diabetes mellitus wit h neurological manifestations ([facility] V24, [facility] V28) 01/21/2018 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 ([facility] V24, [facility] V28) 08/03/2007 Encounters Date Type Department Care Team Description 03/22/2025 1:00 PM EDT Office Visit Orthopedic Surgery - [address] [phone] Sea Mata DPM Controlled type 2 diabetes with neuropathy ([facility] V24, [facility] V28) (Primary Dx); Arthritis of both feet; Hammertoes of both feet; PAD (peripheral artery disease) ([facility] V24); Dermatophytosis, nail from Last 3 Months [...] PROCEDURE: HISTORICAL APPENDECTOMY OTHER SURGICAL HISTORY PROCEDURE: [place] BIOPSY THYROID PERCUTANEOUS CORE NEEDLE PACEMAKER IMPLANT PROCEDURE: HISTORICAL PACEMAKER; COMMENT: cardiomyopathy Medical History Medical History Date Comments HTN (hypertension) DX:HTN (hyper tension) Hypercholesteremia DX:Hyperchole steremia 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 ([facility] V24, [facility] V28) 2007 DX:Diabetes type 2 with atherosclerosis of arteries of extremities ([facility]) Fibromyalgia DX:Fibromyalgia Dilated cardiomyopathy ([facility] V24, [facility] V28) DX:Dilated cardiomyopathy (H CC); COMMENT: 05/2017 EF 40% CHF (congestive heart failur e) ([facility] V24, [facility] V28) DX:CHF (congestive heart cheryl lure) ([facility]) Gout 01/21/2018 DX:Gout; COMMENT : Left toe Depression 01/21/2018 DX:Depression Type 2 diabetes mellitus wit h neurological manifestations ([facility] V24, [facility] V28) 01/21/2018 DX:Type 2 diabetes mellitus with neurological manifestations ([facility]) Diabetic peripheral neuropat hy ([facility] V24, [facility] V28) 01/21/2018 DX:Diabetic peripheral neuro cruz ([facility]) Chronic low back pain 01/21/2018 DX:Chronic low [...] Care Team (Late st Contact Info) Description 06/22/2025 1:15 PM EST Office Visit Orthopedic Surgery - [place] [address] [facility] [address] [place] [phone] Sea Mata, SANDI [address] [address] Health Maintenance Due Date Last Done Comments [...] Results * Annual BMP Blood Test (09/30/2021) [facility] Annual BMP Blood Test abstracted Result [facility] Provider HEALTH MAINTENANCE Final Result * (ABNORMAL) Lipid panel (09/30/2021) [facility] LDL/HDL Ratio 3 0 - 4 Triglycerides 181(A) 0 - 150 mg/dL Cholesterol 148 0 - 200 mg/dL HDL 45 >=40 mg/dL LDL Cholesterol 68 0 - 100 mg/dL Blood Venous blood specimen / Unknown Result [facility] Provider LAB BLOOD ORDERABLES Dagmar l Result * Colonoscopy (11/05/2020) [facility] Colonoscopy normal, abstracted Anatomical Region Laterality Modality Other Result [facility] Provider HEALTH MAINTENANCE Final Result * Hemoglobin A1c (04/29/2019) [facility] Hemoglobin A1C 6.0 <=6.5 % Blood Venous blood specimen / Unknown Result [facility] Provider LAB BLOOD ORDERABLES Dagmar l Result * Urine Albumin Creatinine Ratio (12/03/2018) [facility] Urine Albumin Creatinine Ratio abstracted Result [facility] Provider HEALTH MAINTENANCE Final Result * Hepatitis C Screening (12/16/2017) [facility] Hepatitis C Screening abstracted Result [facility] Provider HEALTH MAINTENANCE Final Result from Last 3 Months or Most Recently Relevant to Health Maintenance Insurance [facility] MEDICARE Member Subscriber Plan / Payer (Ef fective 2021-Present) Name:Nathan Peoples Relation to Subscriber:Self Name:Nathan Peoples Payer ID:[id number] Group ID:[id number] Type:Not on file Address: [address] [place] [phone] MEDICAID - [place] Care Teams Pit Crane Operator Relationship Specialty Start Date End Date Cordelia Moraes PA [address] [place] [address] PCP - General 10/17/24
[2025-04-22 18:32] LABS: MANUAL DIFF FLAG NO
[2025-04-22 18:38] LABS: Hematocrit 39.9 % (37.0-47.0); Hemoglobin 12.4 g/dl (12.0-16.0); Imm Gran Abs Auto 0.03 X10*3/uL (0.00-0.03); Imm Gran Pct Auto 0.3 % (0.0-0.4); Lymphocytes Absolute Auto 2.6 X10*3/uL (1.2-4.9); Mean Corpuscular HGB Conc 31.1 g/dl (31.0-35.0); Mean Corpuscular Hemoglobin 25.5 pg (27.0-33.0); Mean Corpuscular Volume 81.9 fL (80.0-98.0); NRBC Abs Auto 0.000 X10*3/uL (0.0-0.012); NRBC Pct Auto 0.0 /100WBC (0.0-0.2); Platelet Count 269 X10*3/uL (160-400); Red Blood Count 4.87 X10*6/uL (4.20-5.50); White Blood Count 9.4 X10*3/uL (4.8-10.8)
[2025-04-22 18:55] LABS: Alanine Aminotransferase 18 U/L (0-31); Albumin Level 4.1 g/dL (3.5-5.0); Alkaline Phosphatase 95 U/L (39-117); Anion Gap 13 (12-20); Aspartate Amino Transferase 17 U/L (5-31); Blood Urea Nitrogen 21 mg/dL (9-16); Calcium 9.1 mg/dL (8.4-10.2); Carbon Dioxide 26 mmol/L (22-29); Chloride 106 mmol/L (96-108); Creatinine Clr Calc Pharmacy 27.4; Estimated Glomerular Filt Rate 35; Lipase 14 U/L (8-78); Magnesium 2.1 mg/dL (1.6-2.6); Potassium 3.9 mmol/L (3.3-5.1); Sodium 141 mmol/L (135-145); Total Protein 7.1 g/dL (6.5-8.0)
[2025-04-22 19:02] VITALS: BP 108/70; PULSE 90; RESP 16; TEMP 36.7; O2SAT 92
[2025-04-22 19:04] LABS: IDNOW Serial# 152EDE1D; Influenza B2 Negative (Negative)
[2025-04-22 19:05] LABS: COVID-19 Test Negative (Negative); IDNOW Serial# 16C4AD1C
[2025-04-22 19:09] LABS: Troponin-I High Sensitivity < 2.7 ng/L (<3.5-17.0)
[2025-04-22 21:26] LABS: Glucose, Whole Blood 94 mg/dL (60-115)
--- NOTE | 2025-04-22 21:26 | MHC.EDTECH ---
Did an ambulation trial with the pt. Her O2 started at 94 and went up to 97 as she was walking. Pulse rate stayed in the 80's
[2025-04-22] MEDS: Sucralfate Oral Suspension 1 GM/10 ML ORAL.SUSP PO (21:35)
[2025-04-22 23:21] VITALS: BP 99/66; PULSE 72; RESP 18; TEMP 36.5; O2SAT 94
[2025-04-22 23:23] VITALS: O2SAT 94
[2025-04-22 23:25] VITALS: BP 99/66; PULSE 72; RESP 18; TEMP 36.5; O2SAT 94
== END 2025-04-22 23:30 | disposition home or self-care (01) ==
PROVIDERS: Physician Assistant Medical; Emergency Provider Emergency Medicine Emergency Medical Services; PCP Physician Assistant
DX: K21.9 Gastro-esophageal reflux disease without esophagitis (principal); R07.89 Other chest pain; J30.2 Other seasonal allergic rhinitis; R06.02 Shortness of breath; R09.81 Nasal congestion; Z11.52 Encounter for screening for COVID-19; Z79.899 Other long term (current) drug therapy
CPT/HCPCS: 71046; 74018; 80048; 80076; 82947; 83690; 83735; 84484; 85025; 87502; 87635; 93005; 99284; 99285

== ENCOUNTER → 2025-04-22 18:09 | Outpatient (BNV) | payer OTHER, SELFPAY | PROVIDERS: Emergency Provider Emergency Medicine Emergency Medical Services; PCP Physician Assistant; Visit Provider Internal Medicine | DX: I44.7 Left bundle-branch block, unspecified (principal); I49.3 Ventricular premature depolarization | CPT/HCPCS: 93010 ==

== ENCOUNTER → 2025-04-22 19:07 | Outpatient (BNV) | payer OTHER, SELFPAY | PROVIDERS: PCP Physician Assistant; Visit Provider Radiology Diagnostic Radiology | DX: R06.02 Shortness of breath (principal) | CPT/HCPCS: 71046 ==

== ENCOUNTER 2025-05-10 12:31 | Emergency (ER) | payer OTHER, SELFPAY ==
[2025-05-10 12:43] VITALS: BP 103/73; PULSE 79; RESP 18; TEMP 36.2; O2SAT 97; BMI 24.8
--- NOTE | 2025-05-10 12:43 | ED.GENADULT ---
HPI - General Adult General Chief complaint: Abdominal Pain Stated complaint: Bruising, bloody stool, multi comp Time Seen by Provider: 05/10/25 17:55 Source: patient, family, old records reviewed and service correspondent Mode of arrival: ambulatory Limitations: no limitations History of Present Illness ED Provider: DR. Spear HPI narrative: 70-year-old female with history of HTN, HLD, dm, CKD, CHF with EF of 15-20% on echo patient presents with multiple complaints of epigastric pain, metallic taste on her throat, that is worse with food, for the past 3 weeks anything the patient tries to eat is followed by bowel movement. Patient had a CT abdomen pelvis on 04/22 which was nonconclusive, patient was diagnosed with GERD and started on sucralfate the patient reports some improvement when she 1st use the medicine. +Passing flatus, history of appendectomy and cholecystectomy. Related Data Home Medications ?Medication ?Instructions ?Recorded ?Confirmed aspirin 81 mg tablet,delayed 81 mg PO DAILY 06/04/20 03/21/25 release cholecalciferol (vitamin D3) 50 50 mcg PO DAILY 06/04/20 03/21/25 mcg (2,000 unit) capsule gabapentin 600 mg tablet 600 mg PO TID 06/04/20 03/21/25 loratadine 10 mg tablet 10 mg PO DAILY PRN Allergy Symptoms 06/04/20 03/21/25 omeprazole 10 mg capsule,delayed 10 mg PO DAILY@0630 06/04/20 03/21/25 release zolpidem 5 mg tablet 5 mg PO BEDTIME PRN Insomnia 06/04/20 03/21/25 apixaban 5 mg tablet (Eliquis) 5 mg PO BID 01/05/23 03/21/25 fluticasone propionate 50 50 mcg intranasal DAILY PRN 01/05/23 03/21/25 mcg/actuation nasal allergies spray,suspension triamcinolone acetonide 0.5 % 1 appl topical BID PRN flares 01/05/23 03/21/25 topical cream insulin glargine 100 unit/mL (3 8 unit subcut BEDTIME 01/31/24 03/21/25 mL) subcutaneous pen (Lantus Solostar U-100 Insulin) multivitamin with folic acid 400 1 tab PO DAILY 01/31/24 03/21/25 mcg tablet (Daily-Mallika (with folic acid)) silver sulfadiazine 1 % topical 1 appl topical DAILY PRN ingrown 01/31/24 03/21/25 cream nail metoprolol succinate 100 mg mg PO DAILY 08/26/24 03/21/25 tablet,extended release 24 hr colchicine 0.6 mg tablet 0.6 mg PO DAILY 01/06/25 03/21/25 empagliflozin 25 mg tablet 25 mg PO DAILY 01/06/25 03/21/25 (Jardiance) Previous Rx's ?Medication ?Instructions ?Recorded lancing device (Adjustable Lancing #1 ea 02/01/21 Device) lancets 28 gauge #200 ea 05/02/21 pen needle, diabetic 32 gauge x #50 ea 01/08/22 (BD Radha 2nd Gen Pen Needle) furosemide 40 mg tablet 40 mg PO BID@0900,1800 #60 tabs 05/04/24 sacubitril 24 mg-valsartan 26 mg 1 tab PO BID #60 tabs 05/04/24 tablet (Entresto) spironolactone 25 mg tablet 25 mg PO BID #60 tabs 05/04/24 atorvastatin 40 mg tablet 40 mg PO DAILY #90 tabs 09/01/24 sucralfate 100 mg/mL oral 10 ml PO QID PRN reflux #300 mL 04/22/25 suspension (Carafate) omeprazole 40 mg capsule,delayed 40 mg PO DAILY #20 caps 05/10/25 release sucralfate 100 mg/mL oral 10 ml PO QID #200 mL 05/10/25 suspension Allergies Allergy/AdvReac Type Severity Reaction Status Date / Time egg (EGG) Allergy Intermediate RASH Verified 05/10/25 12:46 Fish Containing Products Allergy Intermediate RASH Verified 05/10/25 12:46 oxycodone (OXYCODONE) Allergy Intermediate RASH Verified 05/10/25 12:46 acetaminophen (From PERCOCET) Allergy Unknown RASH/ITCHIN Verified 05/10/25 12:46 G codeine (CODEINE) Allergy Unknown ITCHING Verified 05/10/25 12:46 hydrocodone (From VICODIN) Allergy Unknown UNKNOWN Verified 05/10/25 12:46 lisinopril (LISINOPRIL) Allergy Unknown UNKNOWN Verified 05/10/25 12:46 metoclopramide (From REGLAN) Allergy Unknown UNKNOWN Verified 05/10/25 12:46 naproxen (Naprosyn) Allergy Unknown Unknown Verified 05/10/25 12:46 tramadol Allergy Unknown Unknown Verified 05/10/25 12:46 Review of Systems Review of Systems: All other systems are reviewed and are negative Constitutional: Reports as per HPI and Reports no additional constitutional complaints Eyes: Reports as per HPI and Reports no additional eye complaints Reports system reviewed and no additional complaints, except as documented Cardiovascular: Reports as per HPI and Reports no additional cardiovascular complaints Respiratory: Reports as per HPI and Reports no additional respiratory complaints Gastrointestinal: Reports as per HPI and Reports no additional gastrointestinal complaints Genitourinary: Reports no additional female genitourinary complaints Musculoskeletal: Reports no additional musculoskeletal complaints Skin/Breast: Reports system reviewed and no additional complaints, except as docu Psychiatric: Reports no additional psychiatric complaints Endocrine: Reports no additional endocrine complaints Hematologic/Lymphatic: Reports no additional hematologic/lymphatic complaints Allergic/Immunologic: Reports no additional allergic/immunologic complaints Reports system reviewed and no additional complaints, except as documented and Reports Abnormal speech present [facility] Past Medical History Medical History Pericardial cyst CHF (congestive heart failure) CHF (congestive heart failure) Hypoglycemia unawareness associated with type 2 diabetes mellitus Vitamin D deficiency Diabetic neuropathy associated with type 2 diabetes mellitus CKD (chronic kidney disease) stage 3, GFR 30-59 ml/min Hypertension 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 Non-toxic multinodular goiter Diabetes type 2, uncontrolled Surgical History Hx of biopsy AICD (automatic cardioverter/defibrillator) present Hx of appendectomy Hx of hysterectomy Family History Family History Father Alcoholism Diabetes Mother Arthritis Hypertension Social History Social History Household Members: None Household Members Other:: Lives by self Housing: Apartment Do you presently have visiting nurse or other home services: Yes Alcohol intake: never Patient Tobacco Use Status: Never used Tobacco e-Cigarette/Vaping Use: Never Used Second Hand Smoke Exposure: No Advance Directives: No Advance Directives Information Provided: No Do you have a plan to hurt others: No Plan service: No Physical Exam ED Vital Signs: Vital Signs - 24 hr 05/10/25 12:43 Temperature 97.1 F Pulse Rate 79 Respiratory Rate 18 Blood Pressure 103/73 Pulse Oximetry 97 Oxygen Delivery Method Room Air BMI result Body Mass Index 24.8 Vital signs have been reviewed and appear to be correct. Blood pressure elevated. Heart rate normal. Respiratory rate normal. Temperature normal. Oxygen saturation normal. Appearance: Alert. Oriented X3. No acute distress. Head: Normal external exam. Normocephalic. Atraumatic. No Wylie signs noted. No raccoon eyes noted Eyes: PERRLA. EOMI. Conjunctiva and sclera normal. Eyelids normal. ENT: TM's Normal. Pharynx normal. Uvula midline. Moist mucous membranes. No trismus noted. No drooling noted. No muffled voice noted. Neck: Normal inspection. Neck supple. FROM. No adenopathy. Thyroid Normal. No meningeal signs. No neck mass noted. CVS: Normal heart rate and rhythm. Heart sound normal. No murmurs noted. Pulses normal throughout. Respiratory: No respiratory distress. Painless inspiration. Breath sounds normal. No wheezes/rales/rhonchi noted. Chest nontender. No accessory muscle usage noted or decreased air movement noted. Abdomen: Soft , mild epigastric tenderness, no guarding, no rebound tenderness. Bowel sounds normal in all 4 quadrants. No distention noted. No organomegaly noted. No visible injury noted. Back: No CVA tenderness. Full range of motion noted. Skin: Skin warm and dry. Normal skin color. Normal skin turgor. No rashes/lesions/lacerations noted. Extremities: No lower extremity edema. Extremities exhibit normal range of motion. Extremities nontender. Neuro: Oriented X 3. Cranial nerve exam: II-XII are grossly intact No motor deficit. No sensory deficit. Reflexes normal. Course Course Course Narrative: This is a rapid medical exam performed by Garcia Gonsalves NP: Additional HPI, ROS, PE not included below will be deferred to primary provider. Patient is a 70y/o Bengali speaking F presenting with complaint of abd pain, diarrhea with any PO intake. Seen here on 04/22, sxs since. Bruising to abdomen and hematochezia. Feeling acid reflex. Plan: labs, UA Reevaluation(s) Reevaluation #1: 70-year-old female seen and evaluated in the emergency department 18 days ago for similar symptoms patient was improved on sucralfate for short time, patient declined chest pain, EKG, cardiac marker is unremarkable for acute pathology. Time: 20:00 Medical Decision Making Differential Diagnosis Differential Diagnoses: The differential diagnosis associated with the presentation includes ( ACS, chest pain, gastritis, peptic ulcer disease, GERD, pancreatitis, colitis, diverticulitis, electrolyte derangement, severe anemia.) Admission/Observation Consideration of admission/observation: Escalation of care including admission/observation considered Lab Data MDM Lab Attestation statement: I reviewed the patient's lab results. 05/10/25 13:07 05/10/25 13:07 Labs: Lab Results 05/10/25 Range/Units 13:07 WBC 7.6 (4.8-10.8) X10*3/uL RBC 4.55 (4.20-5.50) X10*6/uL Hgb 11.5 L (12.0-16.0) g/dl Hct 38.2 (37.0-47.0) % MCV 84.0 (80.0-98.0) fL MCH 25.3 L (27.0-33.0) pg MCHC 30.1 L (31.0-35.0) g/dl RDW 14.2 (11.0-16.0) % Plt Count 228 (160-400) X10*3/uL MPV 9.8 (9.4-12.3) fL Immature Gran % (Auto) 0.4 (0.0-0.4) % Neut % (Auto) 60.9 (45-73) % Lymph % (Auto) 20.5 (20-40) % Dooly % (Auto) 15.4 H (2-11) % Eos % (Auto) 1.6 (0-4) % Baso % (Auto) 1.2 (0-2) % Lymph # (Auto) 1.6 (1.2-4.9) X10*3/uL D[place]y # (Auto) 1.2 (0.1-1.2) X10*3/uL Eos # (Auto) 0.1 (0.0-0.4) X10*3/uL Baso # (Auto) 0.1 (0.0-0.2) X10*3/uL Abs Immat Gran (auto) 0.03 (0.00-0.03) X10*3/uL Absolute Neuts (auto) 4.7 (2.0-8.3) x10*3/uL Absolute Nucleated RBC 0.000 (0.0-0.012) X10*3/uL Nucleated RBC % (auto) 0.0 (0.0-0.2) /100WBC PT 15.5 H (10.9-12.4) SEC INR 1.4 H (0.9-1.1) Sodium 142 (135-145) mmol/L Potassium 3.4 (3.3-5.1) mmol/L Chloride 109 H (96-108) mmol/L Carbon Dioxide 25 (22-29) mmol/L Anion Gap 11 L (12-20) BUN 24 H (9-16) mg/dL Creatinine 1.66 H (0.5-1.4) mg/dL Estim Creat Clear Calc 24.3 Estimated GFR 31 Random Glucose 115 (60-115) mg/dL Calcium 8.8 (8.4-10.2) mg/dL Total Bilirubin 0.6 (0.0-1.0) mg/dL AST 37 H (5-31) U/L ALT 38 H (0-31) U/L Alkaline Phosphatase 73 (39-117) U/L Total Protein 6.4 L (6.5-8.0) g/dL Albumin 3.8 (3.5-5.0) g/dL Urine Color Yellow Urine Appearance Clear Urine pH 6.0 (5.0-9.0) Ur Specific Odem 1.020 (1.005-1.025) Urine Protein Trace (Neg-Trace) mg/dL Urine Glucose (UA) >=1000 H (Negative) mg/dL Urine Ketones Trace (Negative) mg/dL Urine Blood Negative (Negative) Urine Nitrite Negative (Negative) Ur Leukocyte Esterase Negative (Negative) Urine RBC 0-2 (0-2) /HPF Urine WBC 0-5 (0-5) /HPF Ur Squamous Epith Cells 3-5 (0-2) /HPF Urine Bacteria None Seen (None Seen) Hyaline Casts 0-2 (0-2) /LPF Discharge Plan Discharge Clinical Impression: Gastritis Patient Disposition: Home, Self-Care Instructions: Gastritis (ED) Prescriptions: New sucralfate 100 mg/mL suspension 10 ml PO QID Qty: 200 0RF Rx Instructions: swish in mouth and swallow; use after food/drink omeprazole 40 mg capsule,delayed release(DR/EC) 40 mg PO DAILY Qty: 20 0RF No Action (DME) lancing device [Adjustable Lancing Device] Misc See Rx Instructions .ROUTE .MEDSUPPLY Qty: 1 0RF Rx Instructions: 3 times a day (DME) lancets 28 gauge misc See Rx Instructions topical .MEDSUPPLY Qty: 200 3RF Rx Instructions: To test blood glucose 2 times a day (DME) pen needle, diabetic [BD Radha 2nd Gen Pen Needle] 32 gauge x 5/32 needle See Rx Instructions .ROUTE .MEDSUPPLY Qty: 50 6RF Rx Instructions: once a day atorvastatin 40 mg tablet 40 mg PO DAILY Qty: 90 0RF multivitamin with folic acid [Daily-Mallika (with folic acid)] 400 mcg tablet 1 tab PO DAILY silver sulfadiazine 1 % cream 1 appl topical DAILY PRN (Reason: ingrown nail) insulin glargine [Lantus Solostar U-100 Insulin] 100 unit/mL (3 mL) insulin pen 8 unit subcut BEDTIME furosemide 40 mg Tablet 40 mg PO BID@0900,1800 Qty: 60 0RF Protocol: Hold for SBP< HOLD for SBP < : 90 Entresto 24-26 mg Tablet 1 tab PO BID Qty: 60 0RF Protocol: Hold for SBP< HOLD for SBP < : 90 spironolactone 25 mg tablet 25 mg PO BID Qty: 60 0RF sucralfate [Carafate] 100 mg/mL suspension 10 ml PO QID PRN (Reason: reflux) Qty: 300 0RF Rx Instructions: swish in mouth and swallow; use after food/drink zolpidem 5 mg tablet 5 mg PO BEDTIME PRN (Reason: Insomnia) cholecalciferol (vitamin D3) 50 mcg (2,000 unit) capsule 50 mcg PO DAILY omeprazole 10 mg capsule,delayed release(DR/EC) 10 mg PO DAILY@0630 loratadine 10 mg tablet 10 mg PO DAILY PRN (Reason: Allergy Symptoms) aspirin 81 mg tablet,delayed release (DR/EC) 81 mg PO DAILY gabapentin 600 mg tablet 600 mg PO TID triamcinolone acetonide 0.5 % cream 1 appl topical BID PRN (Reason: flares) fluticasone propionate 50 mcg/actuation spray,suspension 50 mcg intranasal DAILY PRN (Reason: allergies) Eliquis 5 mg tablet 5 mg PO BID metoprolol succinate 100 mg tablet extended release 24 hr PO DAILY colchicine 0.6 mg tablet 0.6 mg PO DAILY Jardiance 25 mg tablet 25 mg PO DAILY Print Language: Bengali
[2025-05-10 13:12] LABS: MANUAL DIFF FLAG NO
[2025-05-10 13:13] LABS: Hematocrit 38.2 % (37.0-47.0); Hemoglobin 11.5 g/dl (12.0-16.0); Imm Gran Abs Auto 0.03 X10*3/uL (0.00-0.03); Imm Gran Pct Auto 0.4 % (0.0-0.4); Lymphocytes Absolute Auto 1.6 X10*3/uL (1.2-4.9); Mean Corpuscular HGB Conc 30.1 g/dl (31.0-35.0); Mean Corpuscular Hemoglobin 25.3 pg (27.0-33.0); Mean Corpuscular Volume 84.0 fL (80.0-98.0); NRBC Abs Auto 0.000 X10*3/uL (0.0-0.012); NRBC Pct Auto 0.0 /100WBC (0.0-0.2); Platelet Count 228 X10*3/uL (160-400); Red Blood Count 4.55 X10*6/uL (4.20-5.50); White Blood Count 7.6 X10*3/uL (4.8-10.8)
[2025-05-10 13:16] LABS: Appearance Urine Clear; Glucose Urine UA >=1000 mg/dL (Negative); PH 6.0 (5.0-9.0); Specific Gravity - Urine 1.020 (1.005-1.025); UMIC TRIGGER UACC YES
[2025-05-10 13:23] LABS: INTERNATIONAL NORM RATIO 1.4 (0.9-1.1); Prothrombin Time 15.5 SEC (10.9-12.4)
[2025-05-10 13:29] LABS: Alanine Aminotransferase 38 U/L (0-31); Albumin Level 3.8 g/dL (3.5-5.0); Alkaline Phosphatase 73 U/L (39-117); Anion Gap 11 (12-20); Aspartate Amino Transferase 37 U/L (5-31); Blood Urea Nitrogen 24 mg/dL (9-16); Calcium 8.8 mg/dL (8.4-10.2); Carbon Dioxide 25 mmol/L (22-29); Chloride 109 mmol/L (96-108); Creatinine Clr Calc Pharmacy 24.3; Estimated Glomerular Filt Rate 31; Potassium 3.4 mmol/L (3.3-5.1); Sodium 142 mmol/L (135-145); Total Protein 6.4 g/dL (6.5-8.0)
--- NOTE | 2025-05-10 18:18 | ECG_ITS ---
Test Reason : ABD PAIN Blood Pressure : */* mmHG Vent. Rate : 77 BPM Atrial Rate : 78 BPM P-R Int : 176 ms QRS Dur : 162 ms QT Int : 472 ms P-R-T Axes : 22 -27 72 degrees QTcB Int : 534 ms Normal sinus bradycardia with Premature ventricular complexes Premature atrial complexes Left bundle branch block Abnormal ECG When compared with ECG of 22-Apr-2025 18:13, No significant changes seen QT has lengthened Referred By: Ede Spear Electronically Signed By: VIKAS JAFFE MD
[2025-05-10 18:30] VITALS: BP 96/50; PULSE 77; RESP 16; TEMP 36.4
[2025-05-10] MEDS: Sucralfate Oral Suspension 1 GM/10 ML ORAL.SUSP PO (18:33)
[2025-05-10] MEDS: Magnesium Hydrox/Alum Hydrox 30 ML ORAL.SUSP PO (18:33)
[2025-05-10 19:10] LABS: Troponin-I High Sensitivity 5.1 ng/L (<3.5-17.0)
[2025-05-10 19:13] VITALS: BP 107/57; PULSE 88; TEMP 36.7; O2SAT 96
[2025-05-10 20:03] VITALS: BP 107/57; PULSE 88; RESP 20; TEMP 36.7; O2SAT 96
== END 2025-05-10 20:05 | disposition home or self-care (01) ==
PROVIDERS: Registered Nurse Emergency; Emergency Provider Emergency Medicine; PCP Physician Assistant
DX: K29.70 Gastritis, unspecified, without bleeding (principal); I13.0 Hypertensive heart and chronic kidney disease with heart failure and stage 1 through stage 4 chronic kidney disease, or unspecified chronic kidney disease; I50.9 Heart failure, unspecified; N18.30 Chronic kidney disease, stage 3 unspecified; E11.22 Type 2 diabetes mellitus with diabetic chronic kidney disease; Z79.899 Other long term (current) drug therapy
CPT/HCPCS: 36415; 80053; 81001; 84484; 85025; 85610; 93005; 99283; 99284

== ENCOUNTER → 2025-05-10 18:18 | Outpatient (BNV) | payer OTHER, SELFPAY | PROVIDERS: Emergency Provider Emergency Medicine; PCP Physician Assistant; Visit Provider Internal Medicine Cardiovascular Disease | DX: I44.7 Left bundle-branch block, unspecified (principal); I49.1 Atrial premature depolarization; I49.3 Ventricular premature depolarization; I45.81 Long QT syndrome | CPT/HCPCS: 93010 ==

== ENCOUNTER 2025-06-16 08:43 | Outpatient (REF) | payer OTHER, SELFPAY ==
--- OUTSIDE RECORDS SUMMARY | 2025-06-16 09:00 | XMS_ITS | Clinical Summary ---
Author Organization [facility] Address [address] [place] [address] Phone Care Team Providers Care Yeast Stacker Name Role Phone Catherine Cuellar MD Primary Care Provider [phone]- [phone] Allergies Active Allergy Reactions Criticality Noted Date [...] failure 11/30/2020 Overview (11/30/2020): Dr. Jens Rosas, [facility] cardiology Hypertensive disorder 11/30/2020 Hypercholesterolemia 11/30/2020 Gastroesophageal reflux disease 11/30/2020 Fibromyalgia 11/30/2020 Ectopic kidney 11/30/2020 Dilated cardiomyopathy 11/30/2020 Overview (11/30/2020): 05/2017 EF 40% Dr. Jens Rosas -[facility] cardiology. AICD Proteinuria 11/30/2020 Renal disorder due to type 2 diabetes mellitus 0 11/30/2020 Pain of knee region 05/03/2019 Chronic kidney disease stage 3 due to type 2 diabetes mellitus 08/17/2018 Overview (11/30/2020): Cr 2.0 on 07/29/18 - outside labs by Endo. Referred by Josue to Dr Cornel Cutler ([facility]). Latest Cr 06/06/19 1.14, Hgb [...] patient's age to complete this topic Insurance [facility] ([id number]) [facility] ([id number]) Care Teams Yeast Stacker Relationship Specialty Start Date End Date Catherine Cuellar MD PCP - General 08/13/20
--- OUTSIDE RECORDS SUMMARY | 2025-06-16 09:00 | XMS_ITS | Encounter Summary ---
Author Organization [facility] Address [address] [place] [address] Phone Care Team Providers Care Family And Consumer Sciences Teacher Name Role Phone Catherine Cuellar MD Primary Care Provider [phone]- [phone] Reason for Visit * Reason Comments Med Refill Encounter Details Date Type Department Care Team ([facility] st Contact Info) Description 05/08/2022 Refill [facility] [address] [place] [address] Talib Larkin MD [address] [place] [id number] Social History Tobacco Use Types Packs/Day Years [...] on filedocumented in this encounter Care Teams Family And Consumer Sciences Teacher Relationship Specialty Start Date End Date Catherine Cuellar MD PCP - General 08/13/20 documented as of this encounter
--- OUTSIDE RECORDS SUMMARY | 2025-06-16 09:00 | XMS_ITS | Clinical Summary ---
Author Organization [facility] Address [address] [place] [address] Care Team Providers Care Knotter Name Role Phone Cordelia Moraes PA-C Primary Care Provider [phone] Source Comments PLEASE NOTE, if this patient [...] (six) hours as needed 022 Active alcohol swabsIndication s:Type 2 diabetes mellitus with stage 3a chronic kidney disease, with long-term current use of insulin Use to test blood glucose three times daily. 100 Each 11 024 Active metoprolol succinate XL (TOPROL-XL) 100 mg 24 hr tabletIndicatio ns:Heart failure with reduced ejection fraction, NYHA class III Take 1 Tablet by mouth once daily (Prescribed by [facility]) 024 Active spironolactone (ALDACTONE) 25 mg tabletIndicatio ns:Heart failure with reduced ejection fraction, NYHA class III Take 1 Tablet by mouth once daily (Prescribed by [facility]) 024 Active blood-glucose meter,continuou s (FREESTYLE CLIF 3 READER) miscIndications :Type 2 diabetes mellitus with stage 3a chronic kidney disease, with long-term current use of insulin Use to test blood glucose continuously. (Freestyle Clif 3 reader) 1 Each 024 Active blood-glucose sensor (FREESTYLE CLIF 3 PLUS SENSOR) deviIndications :Type 2 diabetes mellitus with stage 3a chronic kidney disease, with long-term current use of insulin Place 1 sensor to back of upper arm every 15 days. Use to monitor blood sugar continuously (Freestyle Clif 3 Plus) 2 Each 024 Active lancets (FREESTYLE LANCETS) 28 gaugeIndication s:Type 2 diabetes mellitus with stage 3a chronic kidney disease, with long-term current use of insulin Use to test blood glucose three times daily. (Freestyle Lancets) 100 Each 024 Active blood sugar diagnostic stripsIndicatio ns:Type 2 diabetes mellitus with stage 3a chronic kidney disease, with long-term current use of insulin Use to test blood glucose three times daily. (Freestyle Lite) 100 Each 024 Active empagliflozin (JARDIANCE) 25 mg tabIndications: Type 2 diabetes mellitus with stage 3b chronic kidney disease, with long-term current use of insulin,Stage 3 chronic kidney disease due to type 2 diabetes mellitus,Heart failure with reduced ejection fraction, NYHA class III Take 1 Tablet by mouth every morning (Take with plenty of water throughout the day) stop 10 mg 30 Tablet 025 Active cholecalciferol (VITAMIN D-3) 50 mcg (2,000 unit) capsule TOME 1 CAPSULA POR VIA ORAL TODOS [place]. 90 Capsule 1 025 Active BD LISA 2ND GEN PEN NEEDLE 32 gauge x 32 ndleIndications :Type 2 diabetes mellitus with stage 3b chronic kidney disease, with long-term current use of insulin 1 to 3 (one to three) times daily Use to inject insulin as per order. 100 Each 025 Active MISCELLANEOUS MEDICAL SUPPLY MISC by miscellaneous route daily Digital scale, disp 1, lifetime need, dx heart failure, needs daily weight checks. 1 Each 025 Active DAILY-MOSES, WITH FOLIC ACID, 400 mcg tabIndications: Chronic kidney disease, stage 3b TOME 1 TABLETA POR VIA ORAL TODOS [place] 90 Tablet 1 025 Active gabapentin (NEURONTIN) 600 mg tabletIndicatio ns:Fibromyalgia TOME MONA TABLETA ALISTAIR VECES AL ANANTH 270 Tablet 025 Active loratadine (CLARITIN) 10 mg tablet TOME 1 TABLETA POR VIA ORAL TODOS [place] CUANDO SEA NECESARIO FOR ALLERGIES 90 Tablet 025 Active fluticasone (FLONASE) 50 mcg/actuation nasal spray ROCIAR 1 VEZ EN CADA VENTANILLA DE LA NARIZ DIARIO CUANDO SEA NECESARIO FOR RHINITIS OR ALLERGIES 32 mL 1 025 Active colchicine 0.6 mg tabletIndicatio ns:Gout of right foot, unspecified cause, unspecified chronicity TAKE 2 TABLETS BY MOUTH FIRST DAY AND THEN ONE TABLET DAILY AFTER.. 90 Tablet 1 025 Active atorvastatin (LIPITOR) 40 mg tablet TOME 1 TABLETA POR VIA ORAL TODOS [place] 90 Tablet 1 025 Active diclofenac sodium (VOLTAREN) 1 % gel Apply 4 g topically 2 (two) times daily (Prescribed by [facility]). 025 Active HEARTBURN RELIEF, FAMOTIDINE, 10 mg tablet Take 10 mg by mouth 2 (two) times daily as needed for heartburn. 025 Active omeprazole (PRILOSEC) [address] capsule TOME 1 C PSULA POR V A ORAL TODOS LOS D 025 Active amiodarone (PACERONE) 200 mg tablet Take 200 mg by mouth once daily (Prescribed by [facility]). 025 Active ENTRESTO 24-26 mg tabIndications: Heart failure with reduced ejection fraction, NYHA class III Take 1 Tablet by mouth 2 (two) times daily (Prescribed by [facility]). 025 Active furosemide (LASIX) 40 mg tabletIndicatio ns:Heart failure with reduced ejection fraction, NYHA class III,Essential hypertension Take 1 Tablet by mouth once daily decreased dose. 90 Tablet 1 11/03/2 025 Active apixaban (ELIQUIS) 5 mg tabIndications: Dilated cardiomyopathy, Implantable cardioverter-de fibrillator (ICD) in situ Take 1 Tablet by mouth daily. 180 Tablet 1 Active zolpidem (AMBIEN) 5 mg tabletIndicatio ns:Insomnia, unspecified type Take 1 Tablet by mouth nightly at bedtime NEEDED FOR SLEEP!!. Max Daily Amount: 1 Tablet 30 Tablet Active triamcinolone (KENALOG) 0.5 % cream APPLY TO AFFECTED AREA TWICE DAILY FOR 2 WEEKS. THEN ON AND OFF NEEDED FOR FLARES. 15 g 1 024 2024 Discontinued(P atient Stopped Taking) aspirin [address] tablet TOME MONA TABLETA TODOS LOS D 90 Tablet 2 024 2024 Discontinued(T herapy completed/Not needed) atorvastatin (LIPITOR) 40 mg tablet TOME 1 TABLETA POR VIA ORAL TODOS [place] 90 Tablet 1 025 2024 Discontinued tiZANidine (ZANAFLEX) 4 mg tabletIndicatio ns:Fibromyalgia Take 1 Tablet by mouth every 8 (eight) hours as needed for muscle spasms 20 Tablet 025 2024 Discontinued(T herapy completed/Not needed) omeprazole (PRILOSEC) [address] capsule TOME MONA CAPSULA TODOS [place] EN LA MANANA ANTES DEL DESAYUNO 90 Capsule 1 025 2024 Discontinued(T herapy completed/Not needed) ENTRESTO 24-26 mg tabIndications: Heart failure with reduced ejection fraction, NYHA class III TOME 1 TABLETA POR VIA ORAL DOS VECES AL ANANTH 60 Tablet 2 025 2024 Discontinued(R eorder (E-Cancel Not Sent)) furosemide (LASIX) 40 mg tabletIndicatio ns:Heart failure with reduced ejection fraction, NYHA class III TOME 1 TABLETA POR VIA ORAL DOS VECES AL ANANTH 180 Tablet 1 025 2024 Discontinued(R eorder (E-Cancel Not Sent)) apixaban (ELIQUIS) 5 mg tabIndications: Dilated cardiomyopathy, Implantable cardioverter-de fibrillator (ICD) in situ Take 1 Tablet by mouth 2 (two) times Daily. 180 Tablet 1 025 2024 Discontinued(Q uantity/Dosage and/or Sig change) zolpidem (AMBIEN) 5 mg tabletIndicatio ns:Insomnia, unspecified type Take 1 Tablet by mouth nightly at bedtime NEEDED FOR SLEEP!!. Max Daily Amount: 1 Tablet 30 Tablet 2024 Discontinued(R eorder (E-Cancel Not Sent)) sucralfate (CARAFATE) 100 mg/mL suspension USE 10 ML ORALLY 4 TIMES A DAY NEEDED FOR REFLUX SWISH IN MOUTH AND SWALLOW USE AFTER FOOD/DRINK 2024 Discontinued(T herapy completed/Not needed) amoxicillin (AMOXIL) 500 mg capsule TAKE 4 CAPSULES OF AMOXICILLIN 500 MG 1 HOUR PRIOR DENTAL PROCEDURE 2024 Discontinued(T herapy completed/Not needed) Active Problems Problem Noted Date Diagnosed Date Diabetic polyneuropathy asso ciated with type 2 diabetes mellitus 06/05/2025 Overview (06/05/2025): 03/22/25 at [facility] Pt continues to suffer from arthritic changes in midfoot, encouraged to wear supportive shoes, prescribed Voltaren gel Encouraged to offload hammertoe digits to limit pressure preulcerative lesions Decreased pulses bilateral feet - sent for MAIKOL to r/o arthrosclerosis as cause of radiating pain Nails debrided RTC 9 weeks 12/20/24 at [facility] Patient with symptoms of arthritic pain [...] Nail debridement performed to nails 1-5 bilateral Chronic atrial fibrillation 03/31/2025 Overview (03/31/2025): On ICD Carpal tunnel syndrome of right wrist 09/30/2024 Degenerative tear of medial meniscus of right kn ee 10/11/2023 History of appendectomy 12/30/2022 12/31/19 Hx of cholecystectomy 12/30/2022 12/30/2022 ICD (implantable cardioverter-defibrillator) in place 12/30/2022 12/30/2022 Overview (06/21/2024): 06/14/24 at [facility] Plan ~Labs today ~Refer back [...] messaged for pt's arm MRI 05/12/24 at [facility] Plan ~24-Holter monitor to assess PVC burden 04/08/24 at [facility] Plan ~Reduce Lasix to 20 [...] Device to assess PVC burden 03/04/24 at [facility] Plan: - increase entresto to 97-103mg BID - pt will monitor wt at home and repeat labs in a week, if wt has not improved would double lasix dose for 3-4 days - f/u in 1 months - would repeat ekg and if QRS wide with LBBB pattern ask EP if we need to upgrade to DOOR FITTER given low EF and recent admission with decrease in GDMT 08/25/23 at [facility] Cardiology Shared Clinical Summary 1. [...] e jection fraction, NYHA class III 12/30/2022 12/30/2022 Overview (11/24/2024): 10/04/24 at [facility] No medication changes Refer to EP for consult on PVC ablation Encouraged to try to hydrate with at least 64 oz fluid daily Repeat labs including follow up for iron infusion 08/01/24 at [facility] NYHA class III stage C [...] exercise test for risk stratification 06/14/24 at [facility] Labs today Refer back to EP [...] messaged for pt's arm MRI 05/12/24 at [facility] 24-Holter monitor to assess PVC burden 04/08/24 at [facility] Reduce Lasix to 20 mg as needed weight gain greater than 3 pounds / 1-2 days, increased leg swelling, increased shortness of breath Stop carvedilol 12.5 mg twice daily and start metoprolol XL 100 mg daily Pt encouraged to hydrate in the range of 8 glasses fluid daily Repeat Sleep study in-lab Message to Device to assess PVC burden 03/04/24 at [facility] Plan: increase entresto to 97-103mg BID Pt will monitor wt at home and repeat labs in a week, if wt has not improved would double lasix dose for 3-4 days F/u in 1 months - would repeat ekg and if QRS wide with LBBB pattern ask EP if we need to upgrade to DOOR FITTER given low EF and recent admission with decrease in GDMT 08/25/23 at [facility] Shared Clinical Summary 1. [...] Post op right lobectomy DOS 11/10/22 at [facility]. Anemia of chronic renal failure 11/30/2020 12/30/2022 Dilated cardiomyopathy 11/30/2020 3 Overview (11/24/2024): 10/04/24 at [facility] No medication changes Refer to EP for consult on PVC ablation Encouraged to try to hydrate with at least 64 oz fluid daily Repeat labs including follow up for iron infusion 08/01/24 at [facility] NYHA class III stage C [...] exercise test for risk stratification 06/14/24 at [facility] Plan Labs today Refer back [...] messaged for pt's arm MRI 05/12/24 at [facility] Plan 24-Holter monitor to assess PVC burden 04/08/24 at [facility] Reduce Lasix to 20 mg as needed weight gain greater than 3 pounds / 1-2 days, increased leg swelling, increased shortness of breath Stop carvedilol 12.5 mg twice daily and start metoprolol XL 100 mg daily Pt encouraged to hydrate in the range of 8 glasses fluid daily Repeat Sleep study in-lab Message to Device to assess PVC burden 03/04/24 at [facility] Plan: increase entresto to 97-103mg BID Pt will monitor wt at home and repeat labs in a week, if wt has not improved would double lasix dose for 3-4 days F/u in 1 months - would repeat ekg and if QRS wide with LBBB pattern ask EP if we need to upgrade to DOOR FITTER given low EF and recent admission with decrease in GDMT 08/25/23 at [facility]iology Shared Clinical Summary 1. [...] due to type 2 diabetes mellitus 08/17/2018 12/30/2022 Overview (06/05/2025): 03/21/25 at [facility] Course of prednisone for pain and swelling of right foot, but not taking medication ECHO showed severely dilated left ventricle with severe gloab hypokinesis, no SOB, compliant with meds LALO on CKD with low BP, probably hypoperfusion from low BP and volume depletion, suggest to decrease lasix to 40 mg QD from BID, watch for edema, stay on low salt diet 01/06/25 [facility] at [facility] CKD III, renal function back to baseline, appears euvolemic, continue current dose of diuretics, low-sodium diet, continue current medications including SGLT-2 inhibitor A1c <7% On allopurinol, does not want take prednisone Asymptomatic hypotension, secondary to meds 08/26/24 at [facility] at [facility] CKDIII - renal function back to baseline. Serum creatinine 1.28. continue current dose of diuretics. DM - continue SGLT-2 inhibitor, no changes made, maintain A1c <7%, avoid NSAIDs Gout - on allopurinol - does not want to take prednisone, encouraged to follow- up with rheumatology. 04/25/24 at [facility] at [facility] - Dr. Omayra Chapin [...] Referred by Endo to Dr Cornel Cutler ([facility]). Latest Cr 06/06/19 1.14, Hgb 10.3 Constipation 01/21/2018 12/30/2022 Eczema 01/21/2018 12/30/2022 Gout 01/21/2018 12/30/2022 Overview (12/30/2022): 2018 Left toe 2018 Left toe Implantable cardioverter-defibrillator (ICD) in situ 01/21/2018 12/30/2022 Overview (10/30/2023): [facility] - 08/25/23 Cardiology Shared Clinical [...] with long-term current use of insulin 08/03/2007 023 Overview (06/06/2025): DM dx: ~[id number] per patient reports Glucometer: [employer] Americast[employer] Clif 3 Plus Current Diabetes RX: Jardiance 25 mg daily every morning (CKD/HF) MARCO-I/ARB: Entresto 24/26 mg twice daily (prescribed by [facility]) Statin: Atorvastatin 40 mg daily at bedtime (prescribed by [facility]) Urine microalbumin/Scr ratio: <30 mg/g (02/26/23) Pneumococcal vaccine: PPSV23 (02/16/09) Diabetes foot exam: 03/22/25 at [facility] Pt continues to suffer from arthritic changes in midfoot, encouraged to wear supportive shoes, prescribed Voltaren gel Encouraged to offload hammertoe digits to limit pressure preulcerative lesions Decreased pulses bilateral feet - sent for MAIKOL to r/o arthrosclerosis as cause of radiating pain Nails debrided RTC 9 weeks Diabetes retinal exam: 04/05/24 at [facility] Astigmatism - regular OU. A new Rx for glasses was provided Myopia OS - glasses RX given. No diabetic retinopathy Presbyopia OU, hyperopia OD, astigmatism regular OU Pterygium OS - mildly inflammed pterygium, consider Lotemax if irritation worsens Meibomian gland dysfunction OU - hot compresses for 10 minutes 4 times daily. Monitor. 02/09/24 at [facility] No retinopathy Meibomian Gland Dysfunction OU. Hot compresses for 10 minutes 4 times daily. Monitor. Pterygium OS. Mildly inflammed pterygium, consider Lotemax if irritation worsens. Resolved Problems Problem Noted Date Diagnosed Date Resolved Date Obesity 12/30/2022 12/30/2022 09/28/2024 Chronic systolic heart failure 11/30/2020 12/30/2022 10/28/2023 Overview (12/30/2022): Dr. Jens Rosas, [facility] Dr. Jens Rosas, [facility] Diabetic nephropathy associa tanisha with type 2 diabetes mellitus 11/30/2020 12/30/2022 10/28/2023 Encounters Date Type Department Care Team Description 06/12/2025 Results Follow-Up [address] [phone] Cordelia Moraes PA-C 06/07/2025 2:00 PM EST Office Visit [address] [phone] Cordelia Moraes PA-C 06/05/2025 2:40 PM EST Office Visit [facility] [address] [place] [address] Reza Britt, PharmD 04/20/2025 [facility] [address] [place] [address] Cordelia Moraes PA-C from Last 3 Months Immunizations Immunization Administration [...] Sign Reading Time Taken Comments Blood Pressure 98/68 06/07/2025 2:21 PM EST Pulse 62 06/07/2025 2:21 PM EST Temperature 36.5 C (97.7 F) 06/07/2025 2:21 PM EST Respiratory Rate 16 06/07/2025 2:21 PM EST Oxygen Saturation 96% 06/07/2025 2:21 PM EST Inhaled Oxygen Concentration - - Weight 55 kg (121 lb 4.8 oz) 06/07/2025 2:21 PM EST Height 149.9 cm (4' 11 ) 06/07/2025 2:21 PM EST Body Mass Index 24.5 06/07/2025 2:21 PM EST Plan of Treatment Upcoming Encounters Date Type Department Care Team (Late st Contact Info) Description 06/23/2025 8:00 AM EST Telemedicine Visit [facility] [address] [place] [phone] Cordelia Moraes PA-C [address] [place] [address] [id number] Health Maintenance Due Date Last Done Comments Medicare Annual Wellness Visit 1974 CT Colonography 2001 FIT/gFOBT 2001 Fecal DNA 2001 Flexible Sigmoidoscopy 2001 Imm-RSV (adult) (1 - Risk 50 -74 years 1-dose series) 2006 Imm-Pneumococcal 50+ (2 of 2 - PCV) 02/16/2010 02/16/2009 Bone Density Screening 2021 Imm-Zoster, Recombinant (2 of 2) 04/23/2023 02/27/20 23 Urine Albumin Creatinine Rat io Screening 02/27/2024 02/26/2023 Lipid Screening 10/27/2024 10/28/2023, 12/03, 09/30/2021 Hemoglobin A1c 12/19/2024 06/21/2024, 10/02, 12/30/2022, Additional history exists [id number] ( - season) 2025 021, 09/30/2020 Imm-Influenza (#1) 2025 10/17/2019, 1 , 06/07/2015, Additional history exists Retinopathy Screening 04/05/2025 04/05/2024, 024 Falls Prevention 05/30/2025 05/30/2024, 02/26/2023 Serum Creatinine 06/21/2025 06/21/2024, , 02/26/2023, Additional history exists Depression Monitoring 09/07/2025 06/07/2025 , 09/30/2024, 03/14/2024, Additional history exists Diabetes Foot Exam 12/20/2025 12/20/2024, 02/26/2023 Tobacco Screening 06/07/2026 06/07/2025, 10/28/2023 Breast Cancer Screening (Mammogram) 06/09/2027 06/09/2025, 04/27/2024 Colonoscopy 02/13/2032 02/12/2022 Colorectal Cancer Screening 02/13/2032 Imm-DTaP/Tdap/Td (3 - Td or Tdap) 02/26/2033 023, 02/16/2009 Hepatitis C Screening Completed 12/30/2022 Alcohol and Drug Screen Completed 09/28/19, 10/09/2023, 02/26/2023, Additional history exists Procedures Procedure Name Priority Date/Time Associated Diagnosis Comments HISTORIC MAMMOGRAM 06/09/2025 3: 00 AM EST H PYLORI UREA BREATH TEST Routine 06/07/2025 2:44 PM EST Acute gastritis without hemorrhage, unspecified gastritis type GLUCOSE, BLOOD BY GLUCOSE MONITORING DEVICE (CLIA WAIVED)POCT Routine 06/05/2025 2:26 PM EST Type 2 diabetes mellitus with stage 3b chronic kidney disease, with long-term current use of insulin IMAGING SCANNED DOCUMENT 04/22/2025 3:00 AM EDT IMAGING SCANNED DOCUMENT 04/22/2025 3:00 AM EDT IMAGING SCANNED DOCUMENT 04/22/2025 3:00 AM EDT IMAGING SCANNED DOCUMENT 04/22/2025 3:00 AM EDT OTHER ORDERS SCANNED DOCUMENT 04/06/2025 3:00 AM EDT OTHER ORDERS SCANNED DOCUMENT 03/28/2025 3:00 AM EDT REFERRAL SCANNED DOCUMENT 03/22/2025 3:00 AM EDT REFERRAL SCANNED DOCUMENT 03/21/2025 3:00 AM EDT REFERRAL TO PODIATRY Routine 12/20/2024 3:00 AM EDT Type 2 diabetes mellitus with stage 3b chronic kidney disease, with long-term current use of insulin ([facility]) COMPREHENSIVE METABOLIC PANEL Routine 06/21/2024 2:31 PM EST Type 2 diabetes mellitus with stage 3b chronic kidney disease, with long-term current use of insulin ([facility]) HGA1C W/EAG Routine 06/21/2024 2:31 PM EST Type 2 diabetes mellitus with stage 3b chronic kidney disease, with long-term current use of insulin ([facility]) CANINE ENFORCEMENT OFFICER REPORT 3:00 AM EDT LIPIDS W RFLX TO DIRECT LDL Routine 10/28/2023 10:18 AM EDT Preoperative clearance Type 2 diabetes mellitus with stage 3b chronic kidney disease, with long-term current use of insulin ([facility]) MICROALBUMIN/CREATININE RATIO, URINE, RANDOM Routine 02/26/2023 2:03 PM EDT Type 2 diabetes mellitus with stage 3b chronic kidney disease, with long-term current use of insulin ([facility]) HEPATITIS C AB W/RFLX HCV RNA, QT, RT PCR Routine 12/30/2022 10:40 AM EDT Encounter to establish care from Last 3 Months or Most Recently Relevant to Health Maintenance Results * HISTORIC MAMMOGRAM (06/09/2025 3:00 AM EST) 06/09/2025 3:00 AM EST Cordelia Moraes PA-C IM MAMMO Final Result * H PYLORI UREA BREATH TEST OTHER BREATH Routine (06/07/2025 2:44 PM EST) RESULT NOT DETECTED NOT DETECTED 06/09/2025 3:13 PM EST [employer] [facility] BREATH Topography unknown / Unknown 06/07/2025 2:44 PM EST 06/09/2025 3:10 PM EST Narrative [facility] - 06/09/2025 3:16 PM EST . Antimicrobials, proton pump inhibitors, and bismuth preparations are known to suppress H. pylori, and ingestion of these prior to H. pylori diagnostic testing may lead to false negative results. If clinically indicated, the test may be repeated on a new specimen obtained two weeks after discontinuing treatment. However, a positive result is still clinically valid. Cordelia Moraes PA-C LAB - MICROBIOLOGY AMBULATOR Y Final Result Performing Organization Address City/[facility]/ZIP Co de Phone Number [employer] [address] [id number], [employer] [address] [phone] * (ABNORMAL) GLUCOSE, BLOOD BY GLUCOSE MONITORING DEVICE (CLIA WAIVED)POCT Routine (06/05/2025 2:26 PM EST) GLUCOSE 174(A) 70 - 100 mg/dL [facility] POCT Capillary Blood Blood / Unknown 2:26 PM EST Reza Britt PharmD LAB - BLOOD DRAW Final Re sult Performing Organization Address City/[facility]/ZIP Co de Phone Number [facility] OFFICE POCT * IMAGING SCANNED DOCUMENT (04/22/2025 3:00 AM EDT) Only the most recent of4 resultswithin the time period is included. 04/22/2025 3:00 AM EDT Cordelia Moraes PA-C SCAN IMAGING Final Result * OTHER ORDERS SCANNED DOCUMENT (04/06/2025 3:00 AM EDT) Only the most recent of2 resultswithin the time period is included. 04/06/2025 3:00 AM EDT Cordelia Moraes PA-C SCAN OTHER ORDERS Final Resu lt * REFERRAL SCANNED DOCUMENT (03/22/2025 3:00 AM EDT) Only the most recent of2 resultswithin the time period is included. 03/22/2025 3:00 AM EDT Cordelia Moraes PA-C SCAN REFERRAL Final Result * REFERRAL TO PODIATRY (12/20/2024 3:00 AM EDT) 12/20/2024 3:00 AM EDT Reza Britt PharmD REFERRAL Final Res ult * (ABNORMAL) HGA1C W/EAG (06/21/2024 2:31 PM EST) HEMOGLOBIN A1C 6.3(H) <5.7 % of total Hgb [employer] Comment: For someone without known diabetes, a [...] diabetes for children. EAG (MG/DL) 134 mg/dL [employer] EAG (MMOL/L) 7.4 mmol/L [employer] [facility] Blood Blood / Unknown 06/21/2024 2 :31 PM EST 06/21/2024 2:32 PM EST Narrative [facility] - 06/22/2024 12:48 PM EST FASTING:NO Cordelia PATIÑO-C LAB - BLOOD DRAW Final Resul t [facility] [address] [address], [facility] [address] [place] [address] * (ABNORMAL) COMPREHENSIVE METABOLIC PANEL (06/21/2024 2:31 PM EST) GLUCOSE 101 65 - 139 mg/dL [facility] Comment: Non-fasting reference interval UREA NITROGEN (BUN) 24 7 - 25 mg/dL [facility] CREATININE (blood) 1.66(H) 0.50 - 1.05 mg/dL [facility] EGFR 33(L) > OR = 60 mL/min/1. 73m2 [facility] BUN/CREATININE RATIO 14 6 - 22 (calc) [facility] SODIUM 134(L) 135 - 146 mmol/L [facility] POTASSIUM 4.4 3.5 - 5.3 mmol/L [facility] CHLORIDE 94(L) 98 - 110 mmol/L [facility] CARBON DIOXIDE 28 20 - 32 mmol/L [facility] CALCIUM 9.6 8.6 - 10.4 mg/dL [facility] PROTEIN, TOTAL 7.6 6.1 - 8.1 g/dL [facility] ALBUMIN 4.3 3.6 - 5.1 g/dL [facility] GLOBULIN 3.3 1.9 - 3.7 g/dL (calc) [facility] ALBUMIN/GLOBULI N RATIO 1.3 1.0 - 2.5 (calc) [facility] BILIRUBIN, TOTAL 0.4 0.2 - 1.2 mg/dL [facility] ALKALINE PHOSPHATASE 79 37 - 153 U/L [facility] AST 14 10 - 35 U/L [facility] ALT 10 6 - 29 U/L [facility] Blood Blood / Unknown 06/21/2024 2 :31 PM EST 06/21/2024 2:32 PM EST Narrative [facility] - 06/22/2024 12:48 PM EST FASTING:NO us Cordelia Moraes PA-C LAB - BLOOD DRAW Edited Resu lt - Final [facility] [address] [address], [facility] [address] [address] * CANINE ENFORCEMENT OFFICER REPORT (04/05/2024 3:00 AM EDT) 04/05/2024 3:00 AM EDT [facility] Provider Default SCAN PROCEDURES Final Resu lt * (ABNORMAL) LIPIDS W RFLX TO DIRECT LDL (10/28/2023 10:18 AM EDT) CHOLESTEROL, TOTAL 131 <200 mg/dL [facility] HDL CHOLESTEROL 35(L) > OR = 50 mg/dL [employer] TRIGLYCERIDES 158(H) <150 mg/dL [facility] LDL-CHOLESTEROL 72 99 mg/dL (calc) [facility] Comment: Reference range: <100 Desirable range <100 mg/dL for primary prevention; <70 mg/dL for patients with CHD or diabetic patients with > or = 2 CHD risk factors. LDL-C is now calculated using the Len-Yohana calculation, which is a validated novel method providing better accuracy than the Friedewald equation in the estimation of LDL-C. Len GARCIA et al. JENNIFER. 2013;310(19): 8974-7190 (http://education.Check/faq/MRI152) CHOL/HDLC RATIO 3.7 <5.0 (calc) [employer] NON-HDL CHOLESTEROL 96 <130 mg/dL (calc) [facility] Comment: For patients with diabetes plus 1 major ASCVD risk factor, treating to a non-HDL-C goal of <100 mg/dL (LDL-C of <70 mg/dL) is considered a therapeutic option. Blood Blood / Unknown 10/28/2023 1 0:18 AM EDT 10/28/2023 10:18 AM EDT Narrative [facility] - 10/29/2023 9:14 AM EDT FASTING:YES Cordelia Moraes PA-C LAB - BLOOD DRAW Final Resul t [employer] [address] [place] [id number], [facility] [address] [address] * MICROALBUMIN/CREATININE RATIO, URINE, RANDOM (02/26/2023 2:03 PM EDT) CREATININE, RANDOM URINE 37 20 - 275 mg/dL [facility] MICROALBUMIN <0.2 mg/dL [facility] Comment: Reference Range Not established MICROALBUMIN/CREA TININE RATIO, RANDOM URINE NOTE <30 [facility] Comment: NOTE: The urine albumin value [...] NP LAB URINE AMBULATORY Final Resul t [facility] [address] [address], [facility] [address] [address] * Hep C Antibody with Reflex HCV RNA (12/30/2022 10:40 AM EDT) HEPATITIS C ANTIBODY NON-REACT OBI NON-REACT OBI [facility] SIGNAL TO CUT-OFF 0.11 <1.00 [employer] Comment: HCV antibody was non-reactive. There is no laboratory evidence of HCV infection. In most cases, no further action is required. However, if recent HCV exposure is suspected, a test for HCV RNA (test code 40971) is suggested. For additional information please refer to http://education.Eds[employer] Softsystems/faq/GBO89r4 (This link is being provided for informational/ educational purposes only.) Blood Blood / Unknown 12/30/2022 1 0:40 AM EDT 12/30/2022 10:40 AM EDT Narrative [facility] - 12/31/2022 7:57 AM EDT FASTING:YES Cordelia Moraes PA-C LAB - BLOOD DRAW Edited Resu lt - Final [facility] [address] [address], [facility] [address] [place] [address] from Last 3 Months or Most Recently Relevant to Health Maintenance Insurance [facility] [place] [id number] Care Teams Knotter Relationship Specialty Start Date End Date Cordelia Moraes PA-C [address] [place] [address] PCP - General Internal Medicine 09/05/22
--- OUTSIDE RECORDS SUMMARY | 2025-06-16 09:00 | XMS_ITS | Encounter Summary ---
Author Organization [facility] Address [address] [place] [address] Care Team Providers Care Pipe Organ Mechanic Name Role Phone Cordelia Moraes PA-C Primary Care Provider [phone] Reason for Visit * Reason Onset Date Comments Test Results 06/12/2025 Encounter Details Date Type Department Care Team ([facility] Contact Info) Description 06/12/2025 Results Follow-Up [facility] [address] [place] [address] Cordelia Moraes PA-C [address] [place], [place] [id number] Social History Tobacco Use Types Packs/Day Years [...] AM PDT documented as of this encounter Nursing Notes * Faith Peraza - 06/12/2025 2:22 PM EST Pt is calling requesting a call back for results. documented in this encounter Plan of Treatment Upcoming Encounters Date Type Department Care Team (Late st Contact Info) Description 06/23/2025 8:00 AM EST Telemedicine Visit [facility] [address] [place] [address] Cordelia Moraes PA-C [address] [place] [address] documented as of this encounter Visit Diagnoses Not on filedocumented in this encounter Additional Health Concerns Assessment Noted Time PHQ-9 Depression Total Score: 12 025 2:18 PM PST A Depression follow-up plan has been documented for the patient 11/09/2024 11:50 AM PDT PHQ-2 Depression Total Score: 6 06/07/20 25 2:18 PM PST documented as of this encounter Care Teams Pipe Organ Mechanic Relationship Specialty Start Date End Date Cordelia Moraes PA-C [address] [place] [address] PCP - General Internal Medicine 09/05/22 documented as of this encounter
--- OUTSIDE RECORDS SUMMARY | 2025-06-16 09:01 | XMS_ITS | Data Portability ---
Author Organization [facility], [facility] Address [address] [place] [address] Care Team Providers Care Spring Manufacturing Set Up Technician Name Role Phone YANDY NUGENT Primary Care Provider Assessment No assessment recorded. Plan of Treatment Reminders Order Date Submit Date Provider Last Modified By Organization Details Last Modified Time Details Appointments None recorded. Lab None recorded. Referral None recorded. Procedures None recorded. Surgeries None recorded. Imaging MRI, wrist, w/o contrast - EVALUATE LUNATE 2023 024 caudet3 [facility], [address], [place], [address], 11:37:21 Medication Orders None recorded. Patient TargetsNo targets recorded. Patient InstructionsNo instructions recorded. Reason for Referral None Reported. Results Created Date Observation Date Name Description Value Unit Range Abnormal Flag Note LastModifiedBy Organization Detail LastModifiedTime 01/18/2001/17/2025 MRI, wrist , w/o contr ast No observ ation record ed. [facility] [address] [place], [address], 01/18/2025 12:08:17 Result Notes None recorded. Procedures Surgical History Date Name Laterality Status Provider Name and Address Organization Details Recorded Time Carpal Tunnel Kenalog 1cc injection, L/R completed Von Ramirez MD [address], [place], [address], [place] [facility] 01/23/2025 13:25:19 Imaging Results None recorded. Procedure Notes None recorded. Medical Equipment None Reported. Allergies Allergen ID Allergen Name Allergen Category Reaction Reaction Severity Criticality Documentation Date Start Date Code Code System Note Provider Name and Address Organization Details Recorded Time [id number] acetamino phen / hydrocodo ne medicatio n Not available Not available Not available 05/13/2024 55334 2 RxNorm BLANCA COFFMAN miriam, [facility] 15:37:35 612890 codeine medicatio n Not available Not available Not available 05/13/2024 2670 RxNorm BLANCA MONDRAGONO miriam, [facility] 15:37:41 379519 lisinopri l medicatio n Not available Not available Not available 05/13/[address] [facility], [facility] 15:37:51 416467 Naprosyn medicatio n Not available Not available Not available 05/13/[address] [facility], [facility] 15:37:59 632287 acetamino phen / oxycodone medicatio n Not available Not available Not available 05/13/2024 [address] [facility], [facility] 15:38:08 378197 Reglan medicatio n Not available Not available Not available 05/13/[address] [facility], [facility] 15:38:14 538958 tramadol medicatio n Not available Not available Not available 05/13/2024 00646 RxNorm BLANCA COFFMAN miriam, [facility] 15:38:22 327213 grass pollen environme nt,medica tion Not available Not available Not available 05/13/2024 BLANCA pineda, [facility] 15:38:30 Medications Name Sig Start Date Stop Date Status Note LastModified by Organization Details LastModified Time furosemide 40 mg tablet TOME 1 TABLETA POR VIA ORAL DOS VECES AL ANANTH active Not Available Not Available No t Available atorvastatin 40 mg tablet TOME 1 TABLETA POR VIA ORAL TODOS LOS SANABRIA active Not Available Not Available No t Available silver sulfadiazine 1 % topical cream APPLY TOPICALLY TO NAIL BED DAILY active Not Available Not Available No t Available carvedilol 25 mg tablet TOME MONA TABLETA POR V A ORAL DOS VECES AL D A active Not Available Not Available No t Available prednisone 10 mg tablet TAKS 3 TABS DAILY X3 DAYS, 2 TABS X 3DAYS, 1 TAB X 3 DAYS. FIRST DOSE NOW, THEN IN AM. TAKE W/ FOOD. active Not Available Not Available No t Available gabapentin 600 mg tablet TOME MONA TABLETA ALISTAIR VECES AL D A active Not Available Not Available No t Available carvedilol 12.5 mg tablet TOME 1 TABLETA POR V A ORAL DOS VECES AL D A active Not Available Not Available No t Available triamcinolon e acetonide 0.5 % topical cream APPLY TO AFFECTED AREA TWICE DAILY FOR 2 WEEKS. THEN ON AND OFF NEEDED FOR FLARES. active Not Available Not Available Not Available azithromycin 250 mg tablet TOME 2 TABLETAS V A ORAL HOY, [place] TOME 1 TABLETA DIARIAMENTE CRISTIAN 4 D SEG N LAS INDICACIONE S active Not Available Not Available No t Available ibuprofen 800 mg tablet TOME MONA TABLETA ALISTAIR VECES AL D A CUANDO SEA NECESARIO PARA EL DOLOR active Not Available Not Available No t Available tizanidine 4 mg tablet TAKE 1 TABLET BY MOUTH EVERY 8 HOURS NEEDED FOR MUSCLE SPASMS. active Not Available Not Available No t Available FreeStyle Lancets 28 gauge USE TO TEST BLOOD GLUCOSE THREE TIMES DAILY. (FREESTYLE LANCETS) active Not Available Not Available No t Available prednisone 20 mg tablet TOME DOS TABLETAS POR V A ORAL TODOS LOS D active Not Available Not Available No t Available metoprolol succinate ER 100 mg tablet,exten ded release 24 hr TOME 1 TABLETA POR V A ORAL TODOS LOS D active Not Available Not Available No t Available allopurinol 100 mg tablet TOME 1 TABLETA POR VIA ORAL TODOS LOS [place] active Not Available Not Available No t Available aspirin 81 mg tablet,delay ed release TOME 1 TABLETA POR V A ORAL TODOS LOS D active Not Available Not Available No t Available spironolacto ne 25 mg tablet TOME 1 TABLETA POR V A ORAL TODOS LOS D active Not Available Not Available No t Available omeprazole 10 mg capsule,sagrario yed release TOME MONA CAPSULA TODOS LOS SANABRIA EN LA MANANA ANTES DEL DESAYUNO active Not Available Not Available No t Available methocarbamo l 750 mg tablet TAKE 1 TABLET BY MOUTH 2 TIMES DAILY NEEDED FOR OTHER (SPASM). active Not Available Not Available No t Available benzonatate 100 mg capsule TOME 2 C PSULAS POR V A ORAL ALISTAIR VECES AL D A CUANDO SEA NECESARIO POR TOS active Not Available Not Available No t Available cephalexin 500 mg capsule TOME 1 C PSULA POR V A ORAL ALISTAIR VECES AL D A POR 10 D active Not Available Not Available No t Available digoxin 125 mcg (0.125 mg) tablet TAKE 0.5 (HALF) TABLET POR VIA ORAL ON Wednesdays AND FRIDAYS active Not Available Not Available Not Available zolpidem 5 mg tablet TAKE 1 TABLET BY MOUTH NIGHTLY AT BEDTIME NEEDED FOR SLEEP!! active Not Available Not Available No t Available furosemide 20 mg tablet PLEASE SEE ATTACHED FOR DETAILED DIRECTIONS active Not Available Not Available N ot Available metoprolol succinate ER 25 mg tablet,exten ded release 24 hr TOME MONA TABLETA POR V A ORAL TODOS LOS D active Not Available Not Available No t Available colchicine 0.6 mg tablet TAKE 2 TABLETS BY MOUTH FIRST DAY AND THEN ONE TABLET DAILY AFTER. active Not Available Not Available No t Available ondansetron 4 mg disintegrati ng tablet TOME MONA TABLETA POR V A ORAL EVERY 8 HOURS NEEDED FOR NAUSEA AND VOMITING active Not Available Not Available No t Available fluticasone propionate 50 mcg/actuatio n nasal spray,suspen mikal ROCIAR 1 VEZ EN CADA VENTANILLA DE LA NARIZ DIARIO CUANDO SEA NECESARIO FOR RHINITIS OR ALLERGIES active Not Available Not Available No t Available doxycycline hyclate 100 mg tablet TOME MONA TABLETA POR V A ORAL DOS VECES AL D A PARA 7 SANABRIA active Not Available Not Available No t Available loratadine 10 mg tablet TOME 1 TABLETA POR VIA ORAL TODOS LOS [place] CUANDO SEA NECESARIO FOR ALLERGIES active Not Available Not Available No t Available One Daily Multivitamin tablet TOME 1 TABLETA POR V A ORAL TODOS LOS D active Not Available Not Available No t Available ciprofloxaci n 0.3 %-dexamethas one 0.1 % ear drops,suspen mikal PLACE 4 DROPS INTO THE RIGHT EAR 2 TIMES A DAY FOR 7 DAYS active Not Available Not Available No t Available Alcohol Prep Pads USE TO TEST BLOOD GLUCOSE THREE TIMES DAILY. active Not Available Not Available No t Available FreeStyle Lite Strips USE TO TEST BLOOD GLUCOSE THREE TIMES DAILY. (FREESTYLE LITE) active Not Available Not Available No t Available Lantus Solostar U-100 Insulin 100 unit/mL (3 mL) subcutaneous pen INYECTE 10 UNIDADES POR V A SUBCUT SHANTAL A DIARIO active Not Available Not Available No t Available cholecalcife rol (vitamin D3) 50 mcg (2,000 unit) capsule TOME 1 C PSULA POR V A ORAL TODOS LOS D active Not Available Not Available No t Available Tradjenta 5 mg tablet TOME 1 TABLETA POR V A ORAL TODOS LOS D active Not Available Not Available No t Available Eliquis 5 mg tablet TOME 1 TABLETA POR V A ORAL DOS VECES AL D A active Not Available Not Available No t Available Jardiance 10 mg tablet TAKE 1 TABLET BY MOUTH EVERY MORNING STOP TRADJENTA 5 MG active Not Available Not Available No t Available Jardiance 25 mg tablet TAKE 1 TABLET BY MOUTH EVERY MORNING (TAKE WITH PLENTY OF WATER THROUGHOUT THE DAY) STOP 10 MG active Not Available Not Available No t Available Entresto 97 mg-103 mg tablet TOME 1 TABLETA POR V A ORAL DOS VECES AL D A active Not Available Not Available No t Available Entresto 49 mg-51 mg tablet TOME 1 TABLETA POR V A ORAL DOS VECES AL D A active Not Available Not Available No t Available Entresto 24 mg-26 mg tablet TOME 1 TABLETA POR VIA ORAL DOS VECES AL ANANTH active Not Available Not Available No t Available BD Radha 2nd Gen Pen Needle 32 gauge x 5/32 1 TO 3 (ONE TO THREE) TIMES DAILY USE TO INJECT INSULIN PER ORDER active Not Available Not Available No t Available Daily-Mallika (with folic acid) 400 mcg tablet TOME 1 TABLETA POR VIA ORAL TODOS [place] active Not Available Not Available No t Available FreeStyle Clif 3 [place] USE TO TEST BLOOD GLUCOSE CONTINUOUSL Y. (FREESTYLE CLIF 3 READER) active Not Available Not Available No t Available FreeStyle Clif [address] SENSOR TO BACK OF UPPER ARM EVERY 15 DAYS. USE TO MONITOR BLOOD SUGAR CONTINUOUSL Y active Not Available Not Available No t Available Vitals Date Recorded Body height Body mass index (BMI) Body weight Provider Name and Address Organization Details Last Updated DateTime 01/23/2025 149.86 cm 25.2 kg/m2 37392.05 g BLANCA COFFMAN [facility] 01/23/2025 13:05:31 Date Recorded Body height Body mass index (BMI) Body weight Provider Name and Address Organization Details Last Updated DateTime 02/20/2025 149.86 cm 25.2 kg/m2 76380.05 g COLT MORELIA [facility] 02/20/2025 13:07:14 Date Recorded Body height Body mass index (BMI) Body weight Provider Name and Address Organization Details Last Updated DateTime 05/13/2024 149.86 cm 25.2 kg/m2 38620.05 g BLANCA COFFMAN [facility] 05/13/2024 14:26:15 Social History None recorded. Functional Status None recorded. Mental Status None recorded. Family History Nothing Reported. Medical History No medical history recorded. Gynecological HistoryNo gynecological history recorded. Obstetrics History GPAL:G 0 P 0 0 0 0 Past Encounters Encounter ID Performer Location Encounter Start Date Encounter Closed Date Diagnosis/Indication Diagnosis SNOMED-CT Code Diagnosis ICD10 Code Diagnosis IMO Codes Diagnosis Note [id number] MD Promise Mora [address] [place] [address] [address] [place] [address] 05/13/2024 13:49:57 06/01/2024 13:09:07 Pain of right wrist [id number] 22446 M25.686 [id number] MD ROMEO Mora [address] [place] [address] [address] [place] [address] 01/23/2025 12:12:49 01/31/2025 12:47:33 Carpal tunnel syndrome of right wrist [id number] 66813 G56.01 [id number] UMAIR Gould [address] [place] [address] 02/20/2025 12:45:37 02/28/2025 10:41:16 Health Concerns Section Related Observation LastModified by Organization David ls LastModified Time None Recorded Concern Status LastModified by Organization Details LastModified Time None Recorded Advance Directives Directive None Recorded Payers Insurance Date Sequence Insurance Name Policy Number Policy Olivier Covered Member ID Olivier Member ID Guarantor Name 02/28/2025 1 [facility] - DOS ON OR AFTER 2022 - ONE CARE (MEDICARE REPLACEMENT/AD VANTAGE - HMO) Lida Peoples [id number] Lida Peoples Notes Date Note Type Note Provider Name and Address Organization Details Recorded Time 05/13/2024 text/html ROS as noted in the HPI Diagnosis: Synovitis right -bguy-nan female who presents with pain and stiffness in her right wrist. This developed in January without history of trauma. The pain is severe and 8/10 in severity. She describes no numbness or tingling.Past family, medical, social history and review of systems has been reviewed, updated and is located in the patient s chart.Examination: Healthy appearing patient in no apparent distress. Alert and oriented. Swelling and synovial thickening right wrist. Decreased right wrist range of motion compared to left. Provocative testing of wrists and digits reveal no instability. No atrophy in either upper extremity. Brisk capillary refill in all digitsI reviewed radiographs of the patient's right wrist obtained an outside institution. There was some mild sclerosis to her lunate.Plan: Through an physician practice consultant, the patient I discussed her situation at length. I would like to obtain an MRI of her wrist to confirm the presence of synovitis and further evaluate her lunate for possible kienbock's disease. She will follow up with me after the study has been obtained. Von Ramirez MD [address], [place], [address], [facility] 05/16/2024 09:20:49 01/23/2025 text/html ROS as noted in the HPI Diagnosis: 1. Right carpal tunnel syndrome 2. MRI evidence of ulnar impaction syndrome The patient returns at our request. Since her last visit she underwent an MRI of her right wrist. Past family, medical, social history and review of systems has been reviewed, updated and is located in the patient s chart. Examination: Healthy appearing patient in no apparent distress. Alert and oriented. Minimally decreased right wrist range of motion compared to the left. Provocative testing of wrist and digits reveal no instability. She has a positive Tinel's sign over her right carpal tunnel. Carpal tunnel compression testing is positive on the right. No atrophy in either upper extremity. Brisk capillary refill in all digits I reviewed an EMG/NCS of the patient's right upper extremity. The findings were consistent with mild right carpal tunnel syndrome. I independently reviewed an MRI of the right wrist obtained at an outside institution. The patient demonstrated some changes in the proximal ulnar corner of her lunate consistent with ulnar impaction syndrome. Plan: The patient and I discussed her situation at length. Given her EMG/NCS findings and her physical findings I have recommended a corticosteroid injection into her right carpal tunnel. I hope this will be both diagnostic and therapeutic. She tolerated the injection well. She will follow-up in 1 month. If she had significant improvement with her injection then I would offer her carpal tunnel surgery if and when her injection wears off. Von Ramirez MD [address] [place] [address] [place] [address], [address], [facility] 01/23/2025 13:25:43 02/20/2025 text/html ROS as noted in the HPI See the patient under the general supervision of Dr. Ramirez diagnosis: 1. Right carpal tunnel syndrome status post cortisone injection . MRI evidence of ulnar impaction syndrome 69-year-old female returns for reexamination. She no longer has right hand pain numbness tingling since the cortisone injection. Past family, medical, social history and review of systems has been reviewed, updated and is located in the patient s chart. Examination: Alert and oriented 3. Nonantalgic gait. Hand reveals no soft tissue swelling and ecchymosis. Digital range of motion is full. Intact median and ulnar nerve innervated intrinsic muscles. Negative Phalen's and median nerve compression test. Neurovascular intact. Sensation intact in all nerve distribution. Plan: Findings and the situation discussed. Patient is doing well overall. Activities as tolerated. She will follow-up on a as needed basis. Cornelius Sun PA-C [address] [facility] [address], [place], [address], [facility] 02/20/2025 16:49:55 OBGyn Episode No OBEpisode recorded.
--- OUTSIDE RECORDS SUMMARY | 2025-06-16 09:01 | XMS_ITS | Data Portability ---
Author Organization [employer] [facility], [facility] Address [address] [place] [address] Care Team Providers Care Sticker On Name Role Phone HIM CCA OTHER YANDY NUGENT Primary Care Provider Assessment Encounter Date Assessment Date Assessment LastModified by Organization Details LastModified Time 04/20/2025 04/20/2025 As noted, we were called to see this patient regarding concerns of abdominal pain. Evaluation in the field was performed by my residential appraiser colleague, as noted above, I provided real-time direction and supervision for this visit. Patient has been having burning abdominal pain in the epigastric region on-and-off for a week. She took Imodium which made her pain resolved. She is not been having any diarrhea or vomiting. She is on omeprazole 10 mg. Patient states that earlier in the week she felt asphyxiated. She is currently not having any shortness of breath. Patient has no signs of fluid retention on exam as per medic. She is on Lasix and was reduced from BID to once a day. Patient's lungs are clear to auscultation. Fingerstick is 132. EKG shows a LBBB. Reviewing that patient it was documented on 03/24 that the patient has a hx of LBBB with PVCs. Presentation is most likely due to acid reflux/GERD. Prescription for famotidine was provided. Will plan to call the patient in two days to see how she's feeling. She was encouraged follow-up with her primary care physician. Impression: GERD Plan: Follow-up PCP Primary care, consider Labs Disposition: We discussed the diagnostic uncertainty of home visits and the risk associated with this. In this case, the patient and I felt this to be an acceptable and reasonable amount of risk given the benefit of avoiding an ED visit. We discussed the need to seek care urgently/emerge ntly in the setting of any new or worsening serious symptoms, particularly Worsening abdominal pain, vomiting/dehydr ation, shortness of breath, chest pain/pressure. [email or web address] Not available 04/20/2025 11:01:29 Plan of Treatment Reminders Order Date Submit Date Provider Last Modified By Organization Details Last Modified Time Details Appointments None recorded. Lab glucose, fingerstick , blood 2024 025 [facility], [address] [place] [address], [phone] 11:29:30 Referral None recorded. Procedures None recorded. Surgeries None recorded. Imaging electrocard iogram 2024 025 [facility], [address] [place] [address], [phone] 15:30:26 Medication Orders famotidine 10 mg tablet 2024 025 [facility] #[id number], [address] [place], [phone], 05:00:55 Patient TargetsNo targets recorded. Patient InstructionsNo instructions recorded. Reason for Referral None Reported. Results Created Date Observation Date Name Description Value Unit Range Abnormal Flag Note LastModifiedBy Organization Detail LastModifiedTime 04/20/2004/20/2025 alfredo huaana griffingr am No observ ation record ed. [email or web address], [phone] 04/20/2025 11:30:00 Result Notes None recorded. Medical Equipment None Reported. Allergies Allergen ID Allergen Name Allergen Category Reaction Reaction Severity Criticality Documentation Date Start Date Code Code System Note Provider Name and Address Organization Details Recorded Time 03848 codeine medicatio n Not available Not available Not available 04/20/2025 2670 RxNorm Not Available [facility] - production 09:28:20 89972 lisinopri l medicatio n Not available Not available Not available 04/20/2025 94123 RxNorm Not Available [facility] - production 09:28:20 18769 naproxen medicatio n Not available Not available Not available 04/20/2025 7258 RxNorm Not Available [facility] - [facility] 5 09:28:20 60815 acetamino phen / oxycodone medicatio n Not available Not available Not available 04/20/2025 79555 3 RxNorm Not Available [facility] - production 5 09:28:20 67017 Reglan medicatio n Not available Not available Not available 04/20/2025 9230 RxNorm Not Available [facility] - production 5 09:28:20 06642 tramadol medicatio n Not available Not available Not available 04/20/2025 33865 RxNorm Not Available [facility] - production 5 09:28:20 Medications Name Sig Start Date Stop Date Status Note LastModified by Organization Details LastModified Time amoxicillin 500 mg capsule TAKE 4 CAPSULES OF AMOXICILL IN 500 MG 1 HOUR PRIOR DENTAL PROCEDURE active Not Available Not Available No t Available furosemide 40 mg tablet TOME 1 TABLETA POR VIA ORAL DOS VECES AL AANNTH active Not Available Not Available No t Available atorvastati n 40 mg tablet TOME 1 TABLETA POR VIA ORAL TODOS [place] active Not Available Not Available No t Available gabapentin 600 mg tablet TOME MONA TABLETA ALISTAIR VECES AL D A active Not Available Not Available No t Available famotidine 10 mg tablet Take 1 tablet twice a day by oral route as needed for 14 days, for burning pain. 05/11 completed Not Available Not Available Not Available triamcinolo ne acetonide 0.5 % topical cream APPLY TO AFFECTED AREA TWICE DAILY FOR 2 WEEKS. THEN ON AND OFF NEEDED FOR FLARES. active Not Available Not Available No t Available azithromyci n 250 mg tablet TOME 2 TABLETAS V A ORAL HOY, LUEGO TOME 1 TABLETA DIARIAMEN TE CRISTIAN 4 D SEG N LAS INDICACIO AMY 04/20 completed Not Available Not Available Not Available tizanidine 4 mg tablet TAKE 1 TABLET BY MOUTH EVERY 8 HOURS NEEDED FOR MUSCLE SPASMS. active Not Available Not Available No t Available amiodarone 200 mg tablet TOME 1 TABLETA POR V A ORAL TODOS LOS D active Not Available Not Available No t Available sucralfate 100 mg/mL oral suspension USE 10 ML ORALLY 4 TIMES A DAY NEEDED FOR REFLUX SWISH IN MOUTH AND SWALLOW USE AFTER FOOD/DRIN K active Not Available Not Available No t Available FreeStyle Lancets 28 gauge USE TO TEST BLOOD GLUCOSE THREE TIMES DAILY. (FREESTYL E LANCETS) active Not Available Not Available No t Available metoprolol succinate ER 100 mg tablet,exte nded release 24 hr TOME 1 TABLETA POR V A ORAL TODOS LOS D active Not Available Not Available No t Available allopurinol 100 mg tablet TOME 1 TABLETA POR VIA ORAL TODOS [place] active Not Available Not Available No t Available aspirin 81 mg tablet,sagrario yed release TOME 1 TABLETA POR V A ORAL TODOS LOS D active Not Available Not Available No t Available spironolact one 25 mg tablet TOME 1 TABLETA POR V A ORAL TODOS LOS D active Not Available Not Available No t Available omeprazole 10 mg capsule,del ayed release TOME MONA CAPSULA TODOS [place] EN LA MANANA ANTES DEL DESAYUNO active Not Available Not Available No t Available methocarbam ol 750 mg tablet TAKE 1 TABLET BY MOUTH 2 TIMES DAILY NEEDED FOR OTHER (SPASM). active Not Available Not Available No t Available zolpidem 5 mg tablet TAKE 1 TABLET BY MOUTH NIGHTLY AT BEDTIME NEEDED FOR SLEEP active Not Available Not Available No t Available furosemide 20 mg tablet PLEASE SEE ATTACHED FOR DETAILED DIRECTION S active Not Available Not Available No t Available metoprolol succinate ER 25 mg tablet,exte nded release 24 hr TOME MONA TABLETA POR V A ORAL TODOS LOS D active Not Available Not Available No t Available colchicine 0.6 mg tablet TAKE 2 TABLETS BY MOUTH FIRST DAY AND THEN ONE TABLET DAILY AFTER. active Not Available Not Available No t Available fluticasone propionate 50 mcg/actuati on nasal spray,suspe nsion ROCIAR 1 VEZ EN CADA VENTANILL A DE LA NARIZ DIARIO CUANDO SEA NECESARIO FOR RHINITIS OR ALLERGIES active Not Available Not Available No t Available loratadine 10 mg tablet TOME 1 TABLETA POR VIA ORAL TODOS [place] CUANDO SEA NECESARIO FOR ALLERGIES active Not Available Not Available No t Available ciprofloxac in 0.3 %-dexametha sone 0.1 % ear drops,suspe nsion PLACE 4 DROPS INTO THE RIGHT EAR 2 TIMES A DAY FOR 7 DAYS 04/20 completed Not Available Not Available Not Available FreeStyle Lite Strips USE TO TEST BLOOD GLUCOSE THREE TIMES DAILY. (FREESTYL E LITE) active Not Available Not Available No t Available Lantus Solostar U-100 Insulin 100 unit/mL (3 mL) subcutaneou s pen INYECTE 10 UNIDADES POR V A SUBCUT SHANTAL A DIARIO active Not Available Not Available No t Available diclofenac 1 % topical gel APPLY 4 G TOPICALLY 2 (TWO) TIMES A DAY. active Not Available Not Available No t Available cholecalcif josseline (vitamin D3) 50 mcg (2,000 unit) capsule [...] EVERY MORNING (TAKE WITH PLENTY OF WATER THROUGHOU T THE DAY) STOP 10 MG active Not Available Not Available No t Available Entresto 24 mg-26 mg tablet TOME 1 TABLETA POR VIA ORAL DOS VECES AL ANANTH active Not Available Not Available No t Available Daily-Mallika (with folic acid) 400 mcg tablet TOME 1 TABLETA POR VIA ORAL TODOS [place] active Not Available Not Available No t Available FreeStyle Clif 3 Surprise USE TO TEST BLOOD GLUCOSE CONTINUOU SLY. (FREESTYL E CLIF 3 READER) active Not Available Not Available No t Available FreeStyle Clif [address] 1 SENSOR TO BACK OF UPPER ARM EVERY 15 DAYS. USE TO MONITOR BLOOD SUGAR CONTINUOU SLY active Not Available Not Available No t Available Radha 2nd Gen Pen Needle 32 gauge x 5/32 1 TO 3 (ONE TO THREE) TIMES DAILY USE TO INJECT INSULIN PER ORDER active Not Available Not Available No t Available Vitals Date Recorded Respiratory rate Oxygen saturation Oxygen saturation in Arterial blood by Pulse oximetry Heart rate Body temperature Systolic And Diastolic Provider Name and Address Organization Details Last Updated DateTime 5 16 /min 98 % 98 % 88 /min 98.2 [degF] 108/68 mm[Hg] Not Available [facility] - production 10:28:54 Social History None recorded. Functional Status None recorded. Mental Status None recorded. Family History Nothing Reported. Medical History No medical history recorded. Gynecological HistoryNo gynecological history recorded. Obstetrics History GPAL:G 0 P 0 0 0 0 Past Encounters Encounter ID Performer Location Encounter Start Date Encounter Closed Date Diagnosis/Indication Diagnosis SNOMED-CT Code Diagnosis ICD10 Code Diagnosis IMO Codes Diagnosis Note [id number] Sam Herrera MD [facility] [address] [place] [address] 04/20/2025 10:28:51 04/20/2025 11:24:22 Gastroesophageal reflux disease [id number] K21.9 [id number] Health Concerns Section Related Observation LastModified by Organization Detai ls LastModified Time None Recorded Concern Status LastModified by Organization Details LastModified Time None Recorded Advance Directives Directive None Recorded Payers Insurance Date Sequence Insurance Name Policy Number Policy Olivier Covered Member ID Olivier Member ID Guarantor Name 04/20/2025 1 [facility] - DOS ON OR AFTER 2022 - DUAL ELIGIBLE - PENITENTIARY OPTIONS AND ONE CARE (MEDICARE REPLACEMENT/AD VANTAGE - HMO) Lida Peoples [id number] Lida Peoples Notes Date Note Type Note Provider Name and Address Organization Details Recorded Time 04/20/2025 text/html ROS as noted in the [facility] Nurse Triage Notes (Jennifer Kiser): Reason For Request: Pt reporting since last week having abdominal pain; feels asphyxiated >notes she suffers from heart disease>Allergies to meds: codeine, lisinopril, naprosin, percocet, tramadol, reglan, pollen Patient Reports: Vague abdominal pain greater than 24 hours; Shortness of Breath Denies: Sharp focal or diffuse abdominal pain Vomiting blood/coffee ground material Bloating, jaundice new onset with pain Nausea and vomiting greater than 2 hours with abdominal pain Tearing pain that radiates to back Food Impaction Constipation Diarrhea no blood in stool Nausea with or without vomiting Inability to tolerate foods, fluids or daily medications History of Heart Attack, in the setting of active chest pain Active Chest pain, radiates to neck jaw and or arm Diaphoretic/Sweati ng Describes as c rushing Sudden onset of nausea/Vomiting and shortness of breath. Unable to speak in full sentences without distress Palpitations, feeling dizzy Chest pain, increased fatigue CHF history, increased swelling and edema Weakness/tachycard ia Chief Complaints: Abdominal Pain, Breathing Problems PMH: Diabetes Mellitus Type 2 PMH Reviewed at 04/20/2025 - : Allergies Reviewed at 04/20/2025: Comments: 70 y.o female complains of Abdominal Pain ongoing since last week on/off, c/o burning feeling but took some OTC meds and felt better. c/o mild SOB and been in the hospital before for retaining water. Went to the kidney MD and they took the water pill away- only take one pill at night for water Meds: water pills, ASA, meds for high cholesterol, Eliquis PMH: heart surgery, nonspecific with medical problems, Pacer/Defib I provided information on the mobile health provider response time and advised the patient and/or caregiver to monitor reported signs and symptoms. I discussed the warning signs of when to seek emergency care. [employer] Organization Information for [facility] Business Legal Name: [employer]. Address: [address] [place] [address], Pediatric Pathologist: Gunnar Daniels MD IA No.: [id number] [employer] POC Test Results from [facility] Blood Glucose Measurement (10:26:01) Blood Glucose: 132mg/dL Attachments uploaded as part of this test result can be found under Documents section. EKG (10:41:13) - This test has been updated by the residential appraiserDimple Lucas at (04/20/2025 11:04:53). The changes are marked in bold. EKG test performed. Attachments uploaded as part of this test result can be found under Documents section. .................. .................. .................. .................. .................. .................. .................. ............... [employer] Note From [facility]: Dispatched to above address for abdominal pain. On arrival patient 70 y/o F, met SC8 at the door, walking unassisted with normal gait, AOX4, airway patent, speaking in full sentences, good color, in no apparent distress. Patient Turkish speaking only, used solar crew member service for translation. Patient reports she has burning abdominal pain since Thursday, has been taking Imodium without relief, reports polyuria and polydipsia, denies fever chills nausea vomiting or diarrhea, states this happened last week and took Imodium which helped. Patients vital signs checked. Secondary assessment, pupils PERRL, airway patent, no JVD, trachea midline, equal chest rise and fall, lungs clear all ambrosio, abdomen soft non tender, no signs of trauma, good radial pulse, skin pink warm and dry. Patients BGL checked, 132mg/dl. Patient reports since Thursday has been having episodes where she feels like she is asphyxiating, denies chest pain or discomfort, states when it happens she just feels like she cant breath. [facility] [place] [place] contacted, spoke with Dr. Herrera, advised of patient complaints, exam findings and test results. [facility] [place] [place] will prescribe Pepcid for GERD, orders 12 lead EKG. 12 lead EKG showed sinus rhythm with LBBB and PVCs. EKG uploaded. [facility] [place] [place] confirms old LBBB, will have follow up with patient in a couple days. Patient advised of red flags, need for follow up and home care. Patient states she will take prescription, follow up with PCP and will call 911 if needed. Patient has no additional questions or concerns at this time. SC8 clear. EOR. [facility] [place] [place] Lab Orders: electrocardiogram: Performed glucose, fingerstick, blood: Performed .................. .................. .................. .................. .................. .................. .................. ............... [facility] [place] [place] Consulted: Sam Herrera .................. .................. .................. .................. .................. .................. .................. ............... Disposition: Fulfilled Sam Herrera MD [address] [place] [address],[facility], [place], [address], [employer] 04/20/2025 11:15:42 OBGyn Episode No OBEpisode recorded.
--- OUTSIDE RECORDS SUMMARY | 2025-06-16 09:01 | XMS_ITS | Clinical Summary ---
Author Organization [employer] Address [facility] [place] [address] Care Team Providers Care Instructor Looping Name Role Phone Unavailable Primary Care Provider Unavailabl e Allergies Active Allergy Reactions Criticality Noted Date Comments Acetaminophen 08/25/2013 Other Reaction(s): Unknown Codeine Hives,Other High 08/25/2013 Other Reaction(s): itching, Not available, Rash All pain killers Itching All pain killers Itching Other Reaction(s): Not available Dapagliflozin 03/24/2025 rash, itching Diphenhydramine Hives 08/18/2022 Diphenhydramine Hcl 08/18/2022 Other Reaction(s): Hives/Urticaria Gramineae Pollens Itching 09/05/2021 Other Reaction(s): Itchy Grass Pollen(K-O-R-T-Swt Derrick) 03/24/2025 Other Reaction(s): Not available Hydrocodone 05/17/2015 Hydrocodone-Acetaminoph en Hives,Other High 12/03/2020 Other Reaction(s): Not available Other Reaction(s): increased itching Iodinated Contrast Media 01/17/2020 Iodinated contrast contraindicated [...] Itching,Hives High 09/05/2021 Tramadol Hives,Unknown High 12/30/2022 Other Reaction(s): Not available Medications amoxicillin (Amoxil) 500 MG capsule Take [...] RHINITIS OR ALLERGIES 7 Active Continuous Glucose Chemical Dependency Therapist (FreeStyle Clif 3 [place]) device USE TO TEST BLOOD GLUCOSE CONTINUOUSLY. (FREESTYLE CLIF 3 READER) 4 Active Continuous Glucose Sensor (FreeStyle Clif 3 Plus Sensor) [facility] [address] 1 SENSOR TO BACK OF UPPER [...] block) 03/24/2025 Obesity 03/24/2025 Paroxysmal atrial fibrillation (CMS/HCC) 025 PVCs (premature ventricular contractions) 2024 Status post hysterectomy 03/24/2025 Carpal tunnel syndrome of right wrist 09/30/2024 Degenerative tear of medial meniscus of right kn ee 10/11/2023 Cardiac pacemaker 12/30/2022 Overview (03/24/2025): 06/14/24 at [facility] Cardio Plan ~Labs today ~Refer back [...] messaged for pt's arm MRI 05/12/24 at [facility] Cardio Plan ~24-Holter monitor to assess PVC burden 04/08/24 at [facility] Cardio Plan ~Reduce Lasix to 20 [...] Device to assess PVC burden 03/04/24 at [facility] Cardio Plan: - increase entresto to 97-103mg BID - pt will monitor wt at home and repeat labs in a week, if wt has not improved would double lasix dose for 3-4 days - f/u in 1 months - would repeat ekg and if QRS wide with LBBB pattern ask EP 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 [...] class III 12/30/2022 Overview (03/24/2025): 10/04/24 at [facility] Cardiology No medication changes Refer to EP for consult on PVC ablation Encouraged to try to hydrate with at least 64 oz fluid daily Repeat labs including follow up for iron infusion 08/01/24 at [facility] Cardiology NYHA class III stage C [...] exercise test for risk stratification 06/14/24 at [facility] Cardio [facility] Labs today Refer back to EP [...] messaged for pt's arm MRI 05/12/24 at [facility] 24-Holter monitor to assess PVC burden 04/08/24 at [facility] Reduce Lasix to 20 mg as needed weight gain greater than 3 pounds / 1-2 days, increased leg swelling, increased shortness of breath Stop carvedilol 12.5 mg twice daily and start metoprolol XL 100 mg daily Pt encouraged to hydrate in the range of 8 glasses fluid daily Repeat Sleep study in-lab Message to Device to assess PVC burden 03/04/24 at [facility] Cardio Plan: increase entresto to 97-103mg BID Pt will monitor wt at home and repeat labs in a week, if wt has not improved would double lasix dose for 3-4 days F/u in 1 months - would repeat ekg and if QRS wide with LBBB pattern ask EP 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 [...] Post op right lobectomy DOS 11/10/22 at [facility]. Hx of cholecystectomy 12/30/2022 Migraine 12/30/2022 Mild vaginal dysplasia 12/30/2022 Polyp of colon 12/30/2022 Overview (03/24/2025): 02/14 Anemia of chronic renal failure 11/30/2020 Fibromyalgia 11/30/2020 Chronic systolic heart failure 11/30/2020 Overview (03/24/2025): Dr. Jens Rosas, [facility] cardiology Diabetic nephropathy associa tanisha with type 2 diabetes mellitus 11/30/2020 Dilated cardiomyopathy (CMS/HCC) 11/30/2020 Overview (03/24/2025): 10/04/24 at [facility] Cardiology No medication changes Refer to EP for consult on PVC ablation Encouraged to try to hydrate with at least 64 oz fluid daily Repeat labs including follow up for iron infusion 08/01/24 at [facility] Cardiology NYHA class III stage C [...] exercise test for risk stratification 06/14/24 at [facility] Cardio [facility] Labs today Refer back to EP [...] messaged for pt's arm MRI 05/12/24 at [facility] 24-Holter monitor to assess PVC burden 04/08/24 at [facility] Reduce Lasix to 20 mg as needed weight gain greater than 3 pounds / 1-2 days, increased leg swelling, increased shortness of breath Stop carvedilol 12.5 mg twice daily and start metoprolol XL 100 mg daily Pt encouraged to hydrate in the range of 8 glasses fluid daily Repeat Sleep study in-lab Message to Device to assess PVC burden 03/04/24 at [facility] Cardio Plan: increase entresto to 97-103mg BID Pt will monitor wt at home and repeat labs in a week, if wt has not improved would double lasix dose for 3-4 days F/u in 1 months - would repeat ekg and if QRS wide with LBBB pattern ask EP 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 [...] 08/17/2018 Overview (03/24/2025): 01/06/25 [facility] CKD III, renal function back to baseline, appears euvolemic, continue current dose of diuretics, low-sodium diet, continue current medications including SGLT-2 inhibitor A1c <7% On allopurinol, does not want take prednisone Asymptomatic hypotension, secondary to meds 08/26/24 at [facility] CKDIII - renal function back to baseline. Serum creatinine 1.28. continue current dose of diuretics. DM - continue SGLT-2 inhibitor, no changes made, maintain A1c <7%, avoid NSAIDs Gout - on allopurinol - does not want to take prednisone, encouraged to follow- up with rheumatology. 04/25/24 at [facility] - Dr. Omayra Chapin Echocardiogram showed severely [...] Referred by Josue to Dr Cornel Cutler ([facility]). Latest Cr 06/06/19 1.14, Hgb [...] of insulin 08/03/2007 Overview (03/24/2025): DM dx: ~[phone] per patient reports Glucometer: Freestyle Clif 3 Plus Current Diabetes RX: Jardiance 25 mg daily every morning (CKD/HF) MARCO-I/ARB: Entresto 24/26 mg twice daily (prescribed by [facility] Cardiology) Statin: Atorvastatin 40 mg daily at bedtime (prescribed by [facility] Cardio) Pneumococcal vaccine: PPSV23 (02/16/09) Diabetes foot exam: 12/20/24 at [facility] Patient with symptoms of arthritic pain [...] by PCP Diabetes retinal exam: 02/09/24 at [facility] No retinopathy Meibomian Gland Dysfunction OU. Hot compresses for 10 minutes 4 times daily. Monitor. Pterygium OS. Mildly inflammed pterygium, consider Lotemax if irritation worsens. Type 2 diabetes mellitus 08/03/2007 Encounters Date Type Department Care Team Description 05/16/2025 10:30 AM EDT Office Visit [facility] [address] [place] [address] Shanti Landis DDS 03/29/2025 11:00 AM EDT Office Visit [facility] [address] [place] [address] Jony Cardenas DDS 03/24/2025 11:00 AM EDT Office Visit [facility] [address] [place] [address] Shanti Landis, CARLYN Encounter for dental examination (Primary Dx); Dental [...] Sign Reading Time Taken Comments Blood Pressure 102/68 05/16/2025 10:38 AM EDT Pulse - - Temperature - - Respiratory Rate - - Oxygen Saturation - - Inhaled Oxygen Concentration - - Weight - - Height - - Body Mass Index - - Plan of Treatment Upcoming Encounters Date Type Department Care Team (Late st Contact Info) Description 07/07/2025 9:30 AM EST Office Visit [facility] [address] [place] [address] Debbie Ayah Health Maintenance Due Date Last Done Comments CT Colonography 1955 Colonoscopy 1956 Colorectal Cancer Screening 1956 Depression Screening 1956 FIT DNA/Cologuard 1956 FIT 1956 FOBT 1956 Lipid Panel 1956 SDOH Screening 1956 Sigmoidoscopy 1956 Diabetes: Foot Exam 1966 Eye Exam 1966 Alcohol/Substance Use Screening 1968 Hepatitis C Screening 1974 Mammogram 1996 RSV Patients and Patients Aged 60 years or older (1 - Risk 50-74 years 1-dose series) 2006 Pneumococcal Vaccine: 50+ Years (2 of 2 - PCV) 02/16/2010 02/16/2009 Diabetes: Hemoglobin A1C 07/29/2019 04/29/2019 Dental Prophylaxis 12/08/2019 06/08/2019, 0 12/01/2018, 05/27/2018, Additional history exists Zoster Vaccines (2 of 2) 04/23/2023 02/26/2023 COVID-19 Vaccine (3 - season) 2025 10/29/2020, 09/30/2020 Influenza Vaccine (#1) 2025 , 05/28/2017, 05/28/2017, Additional history exists Dental Oral Exam 09/25/2025 03/24/2025, 01/2019, 05/27/2018, Additional history exists Dental X-Ray: Bitewings 03/25/2026 03/24/20, 05/27/2018, 04/09/2017, Additional history exists Tobacco Screening 05/16/2026 05/16/2025 Dental X-Ray: Full Mouth 03/25/2028 03/24/2025, 01/31 [...] Procedure Name Priority Date/Time Associated Diagnosis Comments NO CHARGE PROCEDURE Routine 05/16/2025 1 0:30 AM EDT 7 EXTRACTION, ERUPTED TOOTH OR EXPOSED ROOT [...] to Health Maintenance Insurance DENTAL - [facility]
--- OUTSIDE RECORDS SUMMARY | 2025-06-16 09:01 | XMS_ITS | Encounter Summary ---
Author Organization [employer] Address [address] [place] [address] Care Team Providers Care Violin Restorer Name Role Phone Unavailable Primary Care Provider Unavailabl e Encounter Details Date Type Department Care Team (Latest Contact Info) Description 12/01/2018 Abstract [facility] Dental, Provider, DDS Social History [...] Description 07/07/2025 9:30 AM EST Office Visit [facility]ULT [facility] [address] [place] [address] Ayah Lewis documented as of this encounter Visit Diagnoses Not on filedocumented in this encounter
--- OUTSIDE RECORDS SUMMARY | 2025-06-16 09:01 | XMS_ITS | Clinical Summary ---
Author Organization [facility] Address [address] [place] [phone] Phone Care Team Providers Care Social Contact Worker Name Role Phone Unavailable Primary Care [...] Insurance [facility] MEDICARE REPLACEMENT [place] [id number] MEDICARE REPLACEMENT [facility] SAULT MEDICARE REPLACEMENT Additional Source Comments The information contained in this document represents components of the legal health record. It is not the complete legal health record.[facility]
--- OUTSIDE RECORDS SUMMARY | 2025-06-16 09:01 | XMS_ITS | Clinical Summary ---
Author Organization [address] [place] [address] Address [address] [place] [address] Phone Care Team Providers Care Technical Education Teacher Name Role Phone Cordelia Moraes Primary Care [...] times a day. 240 g 1 5 025 Active Problems Problem Noted Date Diagnosed Date Chronic HFrEF (heart failure with reduced ejection fraction) ([facility] V24, [facility] V28) 08/01/2024 Overview (08/01/2024): Dr. Jens Rosas, [facility] cardiology Dilated cardiomyopathy ([facility] V24, [facility] V28 ) 08/01/2024 Overview (08/01/2024): 05/2017 EF 40% Dr. Jens Rosas -[facility] cardiology. AICD Fibromyalgia 08/01/2024 GERD (gastroesophageal reflux disease) HTN (hypertension) 08/01/2024 Hypercholesteremia 08/01/2024 Chronic pain of both knees 05/03/2019 CKD stage 3 due to type 2 di abetes mellitus ([facility] V24, [facility] V28) 08/17/2018 Overview (08/01/2024): Cr 2.0 on 07/29/18 - outside labs by Endo. Referred by Josue to Dr Cornel Cutler ([facility]). Latest Cr 06/06/19 1.14, Hgb 10.3 Anemia 01/21/2018 Overview (08/01/2024): Chronic. Latest Hgb 10.3 (06/06/19) Chronic low back pain 01/21/2018 Constipation 01/21/2018 Depression 01/21/2018 Diabetic peripheral neuropathy ([facility] V24, [facility] V28) 01/21/2018 Eczema 01/21/2018 Gout 01/21/2018 Overview (08/01/2024): 2018 Left toe Herpes zoster 01/21/2018 Overview (08/01/2024): 02/2016 ICD (implantable cardioverter-defibrillator) in place 01/21/2018 Overview (08/01/2024): For primary prevention Insomnia 01/21/2018 Plantar fasciitis of left foot 01/21/2018 Type 2 diabetes mellitus wit h neurological manifestations (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 ([facility] V24, [facility] V28) 08/03/2007 Encounters Date Type Department Care Team Description 03/22/2025 1:00 PM EDT Office Visit Orthopedic Surgery - [address] [phone] Sea Mata DPM Controlled type 2 diabetes with neuropathy ([facility] V24, [facility] V28) (Primary Dx); Arthritis of both feet; Hammertoes of both feet; PAD (peripheral artery disease) ([facility] V24); Dermatophytosis, nail from Last 3 Months Immunizations Immunization Administration Dates Next Due Influenza trivalent, 0.5mL, [...] PROCEDURE: HISTORICAL APPENDECTOMY OTHER SURGICAL HISTORY PROCEDURE: OK BIOPSY THYROID PERCUTANEOUS CORE NEEDLE PACEMAKER IMPLANT PROCEDURE: HISTORICAL PACEMAKER; COMMENT: cardiomyopathy Medical History Medical History Date Comments HTN (hypertension) DX:HTN (hyper tension) Hypercholesteremia DX:Hyperchole steremia 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 ([facility] V24, [facility] V28) 2007 DX:Diabetes type 2 with atherosclerosis of arteries of extremities ([facility]) Fibromyalgia DX:Fibromyalgia Dilated cardiomyopathy ([facility] V24, [facility] V28) DX:Dilated cardiomyopathy (H CC); COMMENT: 05/2017 EF 40% CHF (congestive heart failur e) ([facility] V24, [facility] V28) DX:CHF (congestive heart cheryl lure) ([facility]) Gout 01/21/2018 DX:Gout; COMMENT : Left toe Depression 01/21/2018 DX:Depression Type 2 diabetes mellitus wit h neurological manifestations ([facility] V24, [facility] V28) 01/21/2018 DX:Type 2 diabetes mellitus with neurological manifestations ([facility]) Diabetic peripheral neuropat hy ([facility] V24, [facility] V28) 01/21/2018 DX:Diabetic peripheral neuro cruz ([facility]) Chronic low back pain 01/21/2018 DX:Chronic [...] PM EST Office Visit Orthopedic Surgery - [place] [address] [facility] [address] [place] [phone] Sea Mata, SANDI [address] [address] Health Maintenance Due Date Last Done Comments Breast Cancer Screening 1956 Diabetes: Annual Foot Exam 1966 Diabetes: Annual Retina Eye Exam 1966 RSV Immunization Adult Patients (1 - Risk 50-74 years 1-dose series) 2006 Pneumococcal Vaccine: 50+ Years (2 of 2 - PCV) 02/16/2010 02/16/2009 COVID-19 Vaccine (3 - Moderna risk series) [...] Results * Annual BMP Blood Test (09/30/2021) [facility] Annual BMP Blood Test abstracted Result [facility] Provider HEALTH MAINTENANCE Final Result * (ABNORMAL) Lipid panel (09/30/2021) [facility] LDL/HDL Ratio 3 0 - 4 Triglycerides 181(A) 0 - 150 mg/dL Cholesterol 148 0 - 200 mg/dL HDL 45 >=40 mg/dL LDL Cholesterol 68 0 - 100 mg/dL Blood Venous blood specimen / Unknown Result [facility] Provider LAB BLOOD ORDERABLES Dagmar l Result * Colonoscopy (11/05/2020) [facility] Colonoscopy normal, abstracted Anatomical Region Laterality Modality Other Result [facility] Provider HEALTH MAINTENANCE Final Result * Hemoglobin A1c (04/29/2019) [facility] Hemoglobin A1C 6.0 <=6.5 % Blood Venous blood specimen / Unknown Result [facility] Provider LAB BLOOD ORDERABLES Dagmar l Result * Urine Albumin Creatinine Ratio (12/03/2018) [facility] Urine Albumin Creatinine Ratio abstracted Result [facility] Provider HEALTH MAINTENANCE Final Result * Hepatitis C Screening (12/16/2017) [facility] Hepatitis C Screening abstracted Result [facility] Provider HEALTH MAINTENANCE Final Result from Last 3 Months or Most Recently Relevant to Health Maintenance Insurance [facility] MEDICARE Member Subscriber Plan / Payer (Ef fective 2021-Present) Name:Nathan Peoples Relation to Subscriber:Self Name:Nathan Peoples Payer ID:[id number] Group ID:[id number] Type:Not on file Address: [address] [place] [phone] MEDICAID - [place] Care Teams Technical Education Teacher Relationship Specialty Start Date End Date Cordelia Moraes PA [address] [place] [id number] PCP - General 10/17/24
[2025-06-16 09:39] LABS: Anion Gap 17 (12-20); Blood Urea Nitrogen 34 mg/dL (9-16); Calcium 9.4 mg/dL (8.4-10.2); Carbon Dioxide 27 mmol/L (22-29); Chloride 102 mmol/L (96-108); Estimated Glomerular Filt Rate 27; Potassium 4.6 mmol/L (3.3-5.1); Sodium 141 mmol/L (135-145)
== END 2025-06-16 08:44 | disposition home or self-care (01) ==
LOC: HO.LAB 08:43
PROVIDERS: PCP Physician Assistant; Visit Provider Internal Medicine Hypertension Specialist
DX: I50.9 Heart failure, unspecified (principal); N18.9 Chronic kidney disease, unspecified
CPT/HCPCS: 36415; 80048

== ENCOUNTER 2025-06-19 13:14 | Outpatient (AMB) | payer OTHER, SELFPAY ==
--- NOTE | 2025-06-19 13:23 | HO.NEPHOV_ITS ---
Vital Signs 06/19/25 13:25 Height 4 ft 11 in Weight 119 lb BMI 24.0 BP 80/58 L Blood Pressure Location Lt brachial Position Sitting Pulse 66 Pulse Source Pulse Oximeter Pulse Oximetry (%) 98 Oxygen Delivery Method Room Air Intake Visit Reasons: 3 MO FU Addressograph Operator Required: Yes Addressograph Operator Name: aries [id number] Accompanied by: Self / Same As Patient Allergies egg (EGG) Allergy (Intermediate, Verified 06/19/25 13:28) RASH Fish Containing Products Allergy (Intermediate, Verified 06/19/25 13:28) RASH oxycodone (OXYCODONE) Allergy (Intermediate, Verified 06/19/25 13:28) RASH acetaminophen (From PERCOCET) Allergy (Unknown, Verified 06/19/25 13:28) RASH/ITCHING codeine (CODEINE) Allergy (Unknown, Verified 06/19/25 13:28) ITCHING hydrocodone (From VICODIN) Allergy (Unknown, Verified 06/19/25 13:28) UNKNOWN lisinopril (LISINOPRIL) Allergy (Unknown, Verified 06/19/25 13:28) UNKNOWN metoclopramide (From REGLAN) Allergy (Unknown, Verified 06/19/25 13:28) UNKNOWN naproxen (Naprosyn) Allergy (Unknown, Verified 06/19/25 13:28) Unknown tramadol Allergy (Unknown, Verified 06/19/25 13:28) Unknown Medication List - Last Reconciled 06/19/25 by Tavares Cutler MD amiodarone 200 mg PO DAILY apixaban (Eliquis) 5 mg PO DAILY atorvastatin 40 mg PO DAILY cholecalciferol (vitamin D3) 50 mcg PO DAILY colchicine 0.6 mg PO DAILY empagliflozin (Jardiance) 25 mg PO DAILY fluticasone propionate 50 mcg/actuation 50 mcg intranasal DAILY PRN furosemide 40 mg See Protocol PO DAILY gabapentin 600 mg PO TID insulin glargine (Lantus Solostar U-100 Insulin) 8 units subcut BEDTIME PRN lancets To test blood glucose 2 times a day lancing device (Adjustable Lancing Device) 3 times a day loratadine 10 mg PO DAILY PRN metoprolol succinate ER mg PO DAILY multivitamin with folic acid 400 mcg (Daily-Mallika (with folic acid)) 1 tab PO DAILY omeprazole 40 mg PO DAILY pen needle, diabetic (BD Radha 2nd Gen Pen Needle) once a day sacubitril-valsartan 24-26 mg (Entresto) 1 tab See Protocol PO BID silver sulfadiazine 1% 1 appl topical DAILY PRN spironolactone 25 mg PO DAILY sucralfate (Carafate) 10 mL PO QID PRN triamcinolone acetonide 0.5% 1 appl topical BID PRN zolpidem 5 mg PO BEDTIME PRN HPI Comments Details: 68 yr old woman with DM and HTN with CKD Complains of pain and swelling of the right foot She had a course of prednisone - but not taking it Echocardiogram showed severely dilated left ventricle with severe global hypokinesis Today she has no shortness of breath. She is compliant with all her medications. No lightheadedness. Addressograph Operator service was used Another episode of gout Recently hospitalized for dyspnea in January 29 08/26/24 Recently received IV Iron Jardiance has been added in Jun 2024 01/06/25 69-year-old female presenting with iron deficiency anemia. She reports low blood pressure observed today, potentially due to ongoing cardiac medication, but denies any associated symptoms like lightheadedness. Her anemia history includes prior treatment with iron infusions, and a test is necessary today to evaluate her current status, as paperwork errors previously precluded a recent test. She describes a sensation of choking during exertion activities like descending stairs, dressing, and showering, although she notes relief from her previous right knee pain, which had once hindered her mobility. The most recent attempt for blood work was unsuccessful due to administrative complications. Tests today will monitor kidney function and hemoglobin to ascertain anemia status and decide on further iron infusions. 03/20/25; Doing better now;No dyspnea 06/19/25 The patient is a 70-year-old female with CKD , presenting with gastrointestinal distress. She reported significant weight loss due to stomach issues, which began at the end of April and led to an emergency room visit. The patient was prescribed a liquid medication for her stomach, which she discontinued due to ineffectiveness. The patient also has a history of allergies, which were noted during her treatment for gastrointestinal issues. Her kidney function has decreased, with recent tests showing a function of approximately 27%. This decline is suspected to be related to her heart medications, which have also resulted in low blood pressure. The patient is currently taking medication for anemia, and her hemoglobin levels have improved. She is also on antihypertensive medication, which has been adjusted to a generic form. 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 Non-toxic multinodular goiter Diabetes type 2, uncontrolled Surgical History Hx of biopsy AICD (automatic cardioverter/defibrillator) present Hx of appendectomy Hx of hysterectomy Family History Father Alcoholism Diabetes Mother Arthritis Hypertension Social History Household Members: None Household Members Other:: Lives by self Housing: Apartment Do you presently have visiting nurse or other home services: Yes Alcohol intake: never Patient Tobacco Use Status: Never used Tobacco e-Cigarette/Vaping Use: Never Used Second Hand Smoke Exposure: No service: No Physical Exam Vital Signs: Last Vital Signs Pulse 66 06/19/25 13:25 BP 80/58 L 06/19/25 13:25 Pulse Ox 98 06/19/25 13:25 Oxygen Delivery Method Room Air 06/19/25 13:25 BMI result Body Mass Index 24.0 Comfortable Neck supple no JVD. Lungs entry equal no rales. Heart S1-S2 heard no gallop or rub. Abdomen soft nontender. Neuro alert awake oriented. No asterixis. Extremities no edema. Results Reviewed Nephrology Results: Hgb, (12.0-16.0) 11.5 g/dl L 05/10/25 WBC, (4.8-10.8) 7.6 X10*3/uL 05/10/25 Plt Count, (160-400) 228 X10*3/uL 05/10/25 Sodium, (135-145) 141 mmol/L 06/16/25 Potassium, (3.3-5.1) 4.6 mmol/L Δ 06/16/25 Chloride, (96-108) 102 mmol/L 06/16/25 Carbon Dioxide, (22-29) 27 mmol/L 06/16/25 BUN, (9-16) 34 mg/dL H 06/16/25 Creatinine, (0.5-1.4) 1.88 mg/dL H 06/16/25 Calcium, (8.4-10.2) 9.4 mg/dL Δ 06/16/25 Urine Protein, (Neg-Trace) Trace mg/dL 05/10/25 Assessment & Plan Assessment & Plan (1) CKD (chronic kidney disease): Code(s): N18.9 - Chronic kidney disease, unspecified Category: Medical (2) CHF (congestive heart failure): Code(s): I50.9 - Heart failure, unspecified Category: Medical Plan Middle aged woman with a longstanding hypertension diabetes mellitus with CKD. She has stage III CKD. creatinine has worsened - upto 1.8 Most likely due to hypoperfusion / CArdio renal Milght have to lower Spironolactone and avoid hypotension Defer to cardiology Continue with SGLT2 inhibitors and no changes were made. Maintain A1c less than 7% Avoid nephrotoxic agents including NSAIDs. h/o Gout On Allopurinol Encouraged her to follow up with Rheumatology. h/o Anemia HCT improved Follow CBC and iron levels Asymptomatic hypotension secondary to meds Orders: Orders Basic Metabolic Panel 2 Months Tavares Cutler MD N18.9 - Chronic kidney disease, unspecified Medications: Changed From furosemide 40 mg See Protocol PO BID@0900,1800 60 tabs 0RF To furosemide 40 mg See Protocol PO DAILY Cindy Allen MD From spironolactone 25 mg PO BID 60 tabs 0RF To spironolactone 25 mg PO DAILY Cindy Allen MD Coding Level of Care Code Est Pt Level 4 (86597) Diagnoses CKD (chronic kidney disease) N18.9 CHF (congestive heart failure) I50.9
[2025-06-19 13:25] VITALS: BP 80/58; PULSE 66; O2SAT 98; BMI 24.0
--- OUTSIDE RECORDS SUMMARY | 2025-06-20 02:02 | XMS_ITS | Data Portability ---
Author Organization [facility], [email or web address] Address [address] [place] [address] Care Team Providers Care Ceo And Co Founder Name Role Phone HIM CCA OTHER YANDY NUGENT Primary Care Provider Assessment Encounter Date Assessment Date Assessment LastModified by Organization Details LastModified Time 04/20/2025 04/20/2025 As noted, we were called to see this patient regarding concerns of abdominal pain. Evaluation in the field was performed by my receiving manager colleague, as noted above, I provided real-time [...] Lab glucose, fingerstick , blood 2024 025 [facility], [address] [place] [address], [phone] 11:29:30 Referral None recorded. Procedures None recorded. Surgeries None recorded. Imaging electrocard iogram 2024 025 [facility], [address] [place] [address], [phone] 15:30:26 Medication Orders famotidine 10 mg tablet 2024 025 [id number], [address] [place], [address], 05:00:55 Patient TargetsNo targets recorded. Patient InstructionsNo instructions recorded. Reason for Referral None Reported. Results Created Date Observation Date Name Description Value Unit Range Abnormal Flag Note LastModifiedBy Organization Detail LastModifiedTime 04/20/2004/20/2025 alfredo huaana griffingr am No observ ation record ed. [email or web address], [phone] 04/20/2025 11:30:00 Result Notes None recorded. Medical Equipment None Reported. Allergies Allergen ID Allergen Name Allergen Category Reaction Reaction Severity Criticality Documentation Date Start Date Code Code System Note Provider Name and Address Organization Details Recorded Time 09697 codeine medicatio n Not available Not available Not available 04/20/2025 2670 RxNorm Not Available [facility] - production 09:28:20 14557 lisinopri l medicatio n Not available Not available Not available 04/20/2025 34669 RxNorm Not Available [facility] - production 09:28:20 86302 naproxen medicatio n Not available Not available Not available 04/20/2025 7258 Rx[facility] Not Available [facility] 5 09:28:20 42832 acetamino phen / oxycodone medicatio n Not available Not available Not available 04/20/2025 02660 3 RxNorm Not Available [facility] - production 5 09:28:20 80620 Reglan medicatio n Not available Not available Not available 04/20/2025 9230 RxNorm Not Available [facility] - production 5 09:28:20 88156 tramadol medicatio n Not available Not available Not available 04/20/2025 09397 RxNorm Not Available [facility] - production 5 09:28:20 Medications Name Sig [...] Available No t Available FreeStyle Clif 3 [place] USE TO TEST BLOOD GLUCOSE CONTINUOU SLY. [...] ICD10 Code Diagnosis IMO Codes Diagnosis Note [id number] Sam Herrera MD Main-inst ED Medical [facility] [address] [place] [address] 04/20/2025 10:28:51 04/20/2025 11:24:22 Gastroesophageal reflux disease 708087763 K21.9 [id number] Health Concerns Section Related Observation LastModified by Organization Detai ls LastModified Time None Recorded Concern Status LastModified by Organization Details LastModified Time None Recorded Advance Directives Directive None Recorded Payers Insurance Date Sequence Insurance Name Policy Number Policy Olivier Covered Member ID Olivier Member ID Guarantor Name 04/20/2025 1 [facility] - DOS ON OR AFTER 2022 - DUAL ELIGIBLE - USP OPTIONS AND ONE CARE (MEDICARE REPLACEMENT/AD VANTAGE - HMO) Lida Peoples [id number] Lida Peoples Notes Date Note Type Note Provider Name and Address Organization Details Recorded Time 04/20/2025 text/html ROS as noted in the [facility] CRC Nurse Triage Notes (Jennifer Kiser): [...] signs of when to seek emergency care. 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 Address: [address] [place] [address], [place] Architect: Gunnar Daniels MD IA No.: [id number] Assistant Professor Of Dietetics POC Test Results from [facility] Blood Glucose Measurement (10:26:01) Blood Glucose: 132mg/dL Attachments uploaded as part of this test result can be found under Documents section. EKG (10:41:13) - This test has been updated by the receiving managerDimple Lucas at (04/20/2025 11:04:53). The changes are marked in bold. EKG test performed. Attachments uploaded as part of this test result can be found under Documents section. .................. .................. .................. .................. .................. .................. .................. ............... Assistant Professor Of Dietetics Note From [facility]: Dispatched to above address for abdominal pain. On arrival patient 70 y/o F, met SC8 at the door, walking unassisted with normal gait, AOX4, airway patent, speaking in full sentences, good color, in no apparent distress. Patient Persian speaking only, used surfboard designer service for translation. Patient reports she has [...] she just feels like she cant breath. [facility] contacted, spoke with Dr. Herrera, advised of patient complaints, exam findings and test results. [facility] will prescribe Pepcid for GERD, orders 12 lead EKG. 12 lead EKG showed sinus rhythm with LBBB and PVCs. EKG uploaded. [facility] confirms old LBBB, will have follow up with patient in a couple days. Patient advised of red flags, need for follow up and home care. Patient states she will take prescription, follow up with PCP and will call 911 if needed. Patient has no additional questions or concerns at this time. SC8 clear. EOR. [facility] Lab Orders: electrocardiogram: Performed glucose, fingerstick, blood: Performed .................. .................. .................. .................. .................. .................. .................. ............... [facility] Consulted: Sam Herrera .................. .................. .................. .................. .................. .................. .................. ............... Disposition: Fulfilled Sam Herrera MD [address] [place] [address],[address] [facility], [place], [address], [employer] 04/20/2025 11:15:42 OBGyn Episode No OBEpisode recorded.
--- OUTSIDE RECORDS SUMMARY | 2025-06-20 02:03 | XMS_ITS | Data Portability ---
Author Organization [facility], [facility] Address [address] [place] [address] Care Team Providers Care Rx Specialist Name Role Phone YANDY NUGENT Primary Care Provider [phone] Assessment No assessment recorded. Plan of Treatment Reminders Order Date Submit Date Provider Last Modified By Organization Details Last Modified Time Details Appointments None recorded. Lab None recorded. Referral None recorded. Procedures None recorded. Surgeries None recorded. Imaging MRI, wrist, w/o contrast - EVALUATE LUNATE 2023 024 caudet3 [facility], [address], [place], [address], 11:37:21 Medication Orders None recorded. Patient TargetsNo targets recorded. Patient InstructionsNo instructions recorded. Reason for Referral None Reported. Results Created Date Observation Date Name Description Value Unit Range Abnormal Flag Note LastModifiedBy Organization Detail LastModifiedTime 01/18/2001/17/2025 MRI, wrist , w/o contr ast No observ ation record ed. [facility] [address] [place], [address], 01/18/2025 12:08:17 Result Notes None recorded. Procedures Surgical History Date Name Laterality Status Provider Name and Address Organization Details Recorded Time Carpal Tunnel Kenalog 1cc injection, L/R completed Von Ramirez MD [address], [place], [address], [place] [facility] 01/23/2025 13:25:19 Imaging Results None recorded. Procedure Notes None recorded. Medical Equipment None Reported. Allergies Allergen ID Allergen Name Allergen Category Reaction Reaction Severity Criticality Documentation Date Start Date Code Code System Note Provider Name and Address Organization Details Recorded Time 409342 acetamino phen / hydrocodo ne medicatio n Not available Not available Not available 05/13/2024 24358 2 RxNorm BLANCA COFFMAN [facility] 15:37:35 678097 codeine medicatio n Not available Not available Not available 05/13/2024 2670 RxNorm BLANCA MONDRAGONO [facility], [facility] 15:37:41 850621 lisinopri l medicatio n Not available Not available Not available 05/13/2024 51428 RxNorm BLANCA COFFMAN [facility], [facility] 15:37:51 752201 Naprosyn medicatio n Not available Not available Not available 05/13/2024 2 RxNorm BLANCA COFFMAN [facility], [facility] 15:37:59 160010 acetamino phen / oxycodone medicatio n Not available Not available Not available 05/13/2024 30095 3 RxNorm BLANCA COFFMAN [facility], [facility] 15:38:08 205008 Reglan medicatio n Not available Not available Not available 05/13/2024 9230 RxNorm BLANCA COFFMAN [facility], [facility] 15:38:14 381479 tramadol medicatio n Not available Not available Not available 05/13/2024 41656 RxNorm BLANCA COFFMAN [facility], [facility] 15:38:22 633765 grass pollen environme nt,medica tion Not available Not available Not available 05/13/2024 BLANCA pineda, [facility] 15:38:30 Medications Name Sig Start Date Stop [...] Available No t Available FreeStyle Clif 3 [place] USE TO TEST BLOOD GLUCOSE CONTINUOUSL Y. [...] Updated DateTime 01/23/2025 149.86 cm 25.2 kg/m2 72492.05 g BLANCA COFFMAN [facility] 01/23/2025 13:05:31 Date Recorded Body height Body mass index (BMI) Body weight Provider Name and Address Organization Details Last Updated DateTime 02/20/2025 149.86 cm 25.2 kg/m2 27762.05 g COLT MORELIA [facility] 02/20/2025 13:07:14 Date Recorded Body height Body mass index (BMI) Body weight Provider Name and Address Organization Details Last Updated DateTime 05/13/2024 149.86 cm 25.2 kg/m2 57603.05 g BLANCA COFFMAN [facility] 05/13/2024 14:26:15 Social History None recorded. Functional Status None recorded. Mental Status None recorded. Family History Nothing Reported. Medical History No medical history recorded. Gynecological HistoryNo gynecological history recorded. Obstetrics History GPAL:G 0 P 0 0 0 0 Past Encounters Encounter ID Performer Location Encounter Start Date Encounter Closed Date Diagnosis/Indication Diagnosis SNOMED-CT Code Diagnosis ICD10 Code Diagnosis IMO Codes Diagnosis Note [id number] MD Promise Mora [address] [place] [address] [address] [place] [address] 05/13/2024 13:49:57 06/01/2024 13:09:07 Pain of right wrist [id number] 86829 M25.086 [id number] MD ROMEO Mora [address] [place] [address] [address] [place] [address] 01/23/2025 12:12:49 01/31/2025 12:47:33 Carpal tunnel syndrome of right wrist [id number] 48750 G56.01 [id number] UMAIR Gould [address] [place] [address] 02/20/2025 12:45:37 02/28/2025 10:41:16 Health Concerns Section Related Observation LastModified by Organization David ls LastModified Time None Recorded Concern Status LastModified by Organization Details LastModified Time None Recorded Advance Directives Directive None Recorded Payers Insurance Date Sequence Insurance Name Policy Number Policy Olivier Covered Member ID Olivier Member ID Guarantor Name 02/28/2025 1 [facility] - DOS ON OR AFTER 2022 - ONE CARE (MEDICARE REPLACEMENT/AD VANTAGE - HMO) Lida Peoples [id number] Lida Peoples Notes Date Note Type Note Provider Name and Address Organization Details Recorded Time 05/13/2024 text/html ROS as noted in the HPI Diagnosis: Synovitis right [id number] female who presents with pain and stiffness [...] mild sclerosis to her lunate.Plan: Through an education administrator, the patient I discussed her situation at length. I would like to obtain an MRI of her wrist to confirm the presence of synovitis and further evaluate her lunate for possible kienbock's disease. She will follow up with me after the study has been obtained. Von Ramirez MD [address], [place], [address], [facility] 05/16/2024 09:20:49 01/23/2025 text/html [...] her injection wears off. Von Ramirez MD [address] [place] [address] [place] [address], [address], [facility] 01/23/2025 13:25:43 02/20/2025 text/html ROS as [...] as needed basis. Cornelius Sun PA-C [address] [facility] [address], [place], [address], [facility] 02/20/2025 16:49:55 OBGyn Episode No OBEpisode recorded.
== END 2025-06-19 13:45 | disposition home or self-care (01) ==
LOC: HO.HKA 13:14
PROVIDERS: PCP Physician Assistant; Visit Provider Internal Medicine Hypertension Specialist
DX: N18.9 Chronic kidney disease, unspecified (principal); I50.9 Heart failure, unspecified
CPT/HCPCS: 99214

== ENCOUNTER → 2025-06-19 13:14 | Outpatient (BNVA) | payer OTHER, SELFPAY | PROVIDERS: PCP Physician Assistant; Visit Provider Internal Medicine Hypertension Specialist | DX: E11.22 Type 2 diabetes mellitus with diabetic chronic kidney disease (principal); N18.9 Chronic kidney disease, unspecified; I10 Essential (primary) hypertension; I50.9 Heart failure, unspecified | CPT/HCPCS: 99212 ==